=== PATIENT | female | born 1960 | race Caucasian/White ===

== ENCOUNTER 2024-01-12 21:06 | Emergency (ER) | payer OTHER, SELFPAY ==
[2024-01-12 21:14] VITALS: BP 173/104; PULSE 93; TEMP 36.6; O2SAT 96; BMI 40.7
--- NOTE | 2024-01-12 21:20 | XR_ITS ---
[address] [address] Patient Name: BHAVYA BALDWIN MRN: [id number] date: 1960 Sex: F Assigned Patient Location: ER Current Patient Location: ED.MAIN Accession/Order Number: [id number] Exam Date: 01/12/2024 21:40 Report Date: 01/12/2024 22:30 At the request of: SHAYLEE WILLIAM Procedure: XR ribs RT min 3V w CXR1V EXAM: XR ribs RT min 3V w CXR1V HISTORY: fall COMPARISON: None. FINDINGS/IMPRESSION: 1. No acute fracture or dislocation 2. Lungs are clear. No pneumothorax. No pleural effusion. 3. Upper abdominal bowel gas pattern is nonspecific. 4. Diffuse idiopathic skeletal hyperostosis of the thoracic spine. 5. Chronic of the right proximal humerus. Electronically authenticated by: PARVEZ HENSLEY Date: 01/12/2024 22:30
--- NOTE | 2024-01-12 21:20 | ED.FALL1 ---
HPI HPI - Fall General Chief Complaint: Fall Stated Complaint: RIB PAIN, POST FALL Time Seen by Provider: 01/12/24 21:10 Source: patient Mode of arrival: Wheelchair Limitations: no limitations History of Present Illness HPI Narrative: 63-year-old female presents for right rib pain. About 1:00 this afternoon she was going down some steps with her walker and she fell forward and hit her right lower rib region on the the walker. No other injury was sustained, she has no abdominal pain. It hurts in certain positions or to push on it. She has no history of the rib fracture. Related Data Home Medications ?Medication ?Instructions ?Recorded ?Confirmed amitriptyline 25 mg tablet 25 mg PO DAILY 01/12/24 01/12/24 ascorbic acid (vitamin C) 1,000 mg 1,000 mg PO DAILY 01/12/24 01/12/24 tablet,extended release (C Complex) aspirin 81 mg chewable tablet 81 mg PO DAILY 01/12/24 01/12/24 (Children's Aspirin) atogepant 60 mg tablet (Qulipta) 60 mg PO DAILY 01/12/24 01/12/24 clopidogrel 75 mg tablet 75 mg PO DAILY 01/12/24 01/12/24 cyclobenzaprine 10 mg tablet 10 mg PO Q12H 01/12/24 01/12/24 divalproex 500 mg tablet,extended 1,000 mg PO DAILY 01/12/24 01/12/24 release 24 hr flaxseed 1,000 mg capsule 1,000 mg PO BID 01/12/24 01/12/24 levothyroxine 75 mcg tablet 75 mcg PO DAILY 01/12/24 01/12/24 lisinopril 10 mg tablet 10 mg PO DAILY 01/12/24 01/12/24 magnesium 250 mg tablet 500 mg PO DAILY 01/12/24 01/12/24 metformin 1,000 mg tablet 1,000 mg PO BID 01/12/24 01/12/24 niacin 1,000 mg tablet,extended 1,000 mg PO BID 01/12/24 01/12/24 release pregabalin 100 mg capsule 100 mg PO Q12H 01/12/24 01/12/24 semaglutide 1 mg/dose (4 mg/3 mL) 2 mg subcut .weekly 01/12/24 01/12/24 subcutaneous pen injector (Ozempic) Previous Rx's ?Medication ?Instructions ?Recorded acetaminophen 300 mg-codeine 30 mg 1 tab PO Q6H PRN pain 5 days #20 01/12/24 tablet tabs Allergies Allergy/AdvReac Type Severity Reaction Status Date / Time No Known Drug Allergies Allergy Verified 01/12/24 21:19 Opioid HPI Opioid Management Most Recent Pain and Opioid Data: Last Pain Scale 10 01/12/24 22:12 Last ED Pain Assessment 01/12/24 22:12 Review of Systems ROS Narrative A ten point review of systems is negative except as noted above. Exam Narrative Exam Narrative: Nurses note and vital signs reviewed and patient is not hypoxic. General: The patient appears well and in no apparent distress. Patient is resting comfortably on cart. Skin: Warm, dry, no pallor noted. There is no rash noted. Head: Normocephalic, atraumatic Eye: Normal conjunctiva, no drainage Ears, Nose, Mouth, and Throat: oral mucosa is moist. Nares patent. Cardiovascular: Regular Rate and Rhythm Respiratory: Patient is in no distress, no accessory muscle use, lungs are clear to auscultation, no wheezing, rales or rhonchi. Tenderness to the right lower anterior rib region without crepitus bruise rash or abrasion Back: non-tender GI: Soft and nontender including right upper quad Musculoskeletal: The patient has no evidence of calf tenderness, no pitting edema, symmetrical pulses noted bilaterally Neurological: A&O, normal speech Psychiatric: Cooperative Constitutional Vital Signs, click to edit/add: Last Vital Signs Temp 98 F 01/12/24 21:14 Pulse 90 01/12/24 22:12 Resp 18 01/12/24 22:12 BP 130/80 01/12/24 22:12 Pulse Ox 97 01/12/24 22:12 O2 Del Method Room Air 01/12/24 22:12 Course Vital Signs Vital signs: Vital Signs Temperature 98 F 01/12/24 21:14 Pulse Rate 93 H 01/12/24 21:14 Respiratory Rate 18 01/12/24 21:14 Blood Pressure 173/104 H 01/12/24 21:14 Pulse Oximetry 96 01/12/24 21:14 Oxygen Delivery Method Room Air 01/12/24 21:14 Temperature 98 F 01/12/24 21:14 Pulse Rate 90 01/12/24 22:12 Respiratory Rate 18 01/12/24 22:12 Blood Pressure 130/80 01/12/24 22:12 Pulse Oximetry 97 01/12/24 22:12 Oxygen Delivery Method Room Air 01/12/24 22:12 MDM - Fall MDM Narrative Medical decision making narrative: Rib x-rays are negative per radiologist. She will be treated symptomatically and was given an incentive spirometer. Treatment diagnosis and follow-up were discussed with the patient and her . Differential Diagnosis Differential diagnosis: Likely other (Rib fracture, rib contusion, pneumothorax) Discharge Plan Discharge Stand Alone Forms: Portal Instructions Chief Complaint: Fall Clinical Impression: Contusion of rib on right side Patient Disposition: Home, Self-Care Time of Disposition Decision: 22:37 Condition: Good Mode of Transportation: Private Vehicle Prescriptions / Home Meds: New acetaminophen-codeine 300-30 mg tablet 1 tab PO Q6H PRN (Reason: pain) 5 Days Qty: 20 0RF No Action metformin 1,000 mg tablet 1,000 mg PO BID clopidogrel 75 mg tablet 75 mg PO DAILY pregabalin 100 mg capsule 100 mg PO Q12H Rx Instructions: 150 mg at PM levothyroxine 75 mcg tablet 75 mcg PO DAILY Rx Instructions: at 06:30 lisinopril 10 mg tablet 10 mg PO DAILY cyclobenzaprine 10 mg tablet 10 mg PO Q12H Rx Instructions: 1/2-1 tablet Qulipta 60 mg tablet 60 mg PO DAILY amitriptyline 25 mg tablet 25 mg PO DAILY Rx Instructions: at HS Ozempic 1 mg/dose (4 mg/3 mL) pen injector 2 mg SUBCUT .weekly divalproex 500 mg tablet extended release 24 hr 1,000 mg PO DAILY niacin 1,000 mg tablet extended release 1,000 mg PO BID magnesium 250 mg tablet 500 mg PO DAILY flaxseed 1,000 mg capsule 1,000 mg PO BID C Complex 1,000 mg tablet extended release 1,000 mg PO DAILY aspirin [Children's Aspirin] 81 mg tablet,chewable 81 mg PO DAILY Print Language: Egyptian Instructions: Rib Contusion (ED) Referrals: Physician,Non-Staff, MD [Primary Care Provider] - 1 week
[2024-01-12] MEDS: ACETAMINOPHEN 300 MG/ 30 MG CODEINE TABLET 1 TAB PO ×2 (21:25→23:03)
[2024-01-12 22:12] VITALS: BP 130/80; PULSE 90; O2SAT 97
[2024-01-12 23:11] VITALS: BP 138/82; PULSE 76; O2SAT 97
== END 2024-01-12 23:14 | disposition home or self-care (01) ==
PROVIDERS: Emergency Provider Emergency Medicine
DX: S20.211A Contusion of right front wall of thorax, initial encounter (principal); W10.9XXA Fall (on) (from) unspecified stairs and steps, initial encounter; Z79.899 Other long term (current) drug therapy; Z79.82 Long term (current) use of aspirin; Z79.890 Hormone replacement therapy; Z79.84 Long term (current) use of oral hypoglycemic drugs
CPT/HCPCS: 71101; 94667; 99283

== ENCOUNTER 2024-05-20 14:02 | Emergency (ER) | payer OTHER, SELFPAY ==
[2024-05-20 14:09] VITALS: BP 178/96; PULSE 91; TEMP 36.6; O2SAT 98; BMI 41.2
--- NOTE | 2024-05-20 14:17 | CT_ITS ---
The [address] [address] Patient Name: BHAVYA BALDWIN MRN: [id number] date: 1960 Sex: F Assigned Patient Location: ER Current Patient Location: ER Accession/Order Number: [id number] Exam Date: 05/20/2024 14:53 Report Date: 05/20/2024 15:18 At the request of: JADA HENDRICKS Procedure: CT abdomen pelvis wo con CT ABDOMEN/PELVIS WITHOUT IV CONTRAST. INDICATION: left flank pain COMPARISON: There are no other studies available for comparison. TECHNIQUE: Contiguous axial images were obtained from the lung bases to the pelvic floor without intravenous or oral contrast. Coronal and sagittal reformations are provided. FINDINGS: LOWER LUNGS: Clear. LIVER/BILIARY TREE: No discrete lesion. No intrahepatic ductal dilatation. GALLBLADDER: Status post cholecystectomy.. CBD: Normal CBD. SPLEEN: Normal in size. PANCREAS: No appreciable peripancreatic fluid. No pancreatic ductal dilatation. No discrete lesion. ADRENALS: Normal. KIDNEYS: No hydronephrosis. There are several nonobstructing left renal stones measuring up to 2 mm. STOMACH AND BOWEL: Stomach is unremarkable. No dilated bowel loops. No bowel wall thickening. APPENDIX: Normal appendix. PERITONEAL CAVITY: No fluid. No fat stranding. ABDOMINAL WALL: No subcutaneous stranding. No subcutaneous fluid collection. LYMPH NODES: No mesenteric or retroperitoneal lymphadenopathy by CT criteria. ABDOMINAL AORTA: No aneurysm. PELVIS: No acute abnormality. MUSCULOSKELETAL: No acute osseous abnormality. CT/CT abdomen pelvis wo con IMPRESSION: No acute abnormality in the abdomen or pelvis. No obstructive uropathy. Left nephrolithiasis. Electronically authenticated by: CHELSEA ROBLEDO Date: 05/20/2024 15:18
--- NOTE | 2024-05-20 14:18 | ECG_ITS ---
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
[2024-05-20 14:37] LABS: Basophils Absolute Auto 0.1 10^3/uL (0.0-0.1); Basophils Percent Auto 0.9 % (0.2-2.0); Eosinophils Absolute Auto 0.3 10^3/uL (0.0-0.7); Eosinophils Percent Auto 3.8 % (0.9-7.0); Hemoglobin 14.1 g/dL (12.0-16.0); Immature Granulocytes Abs Auto 0.02 10^3/uL (0.00-0.03); Immature Granulocytes Pct Auto 0.3 % (0.0-0.5); Lymphocytes Percent Auto 28.3 % (20.5-60.0); Mean Corpuscular Hemoglobin 28.5 pg (26.7-34.0); Mean Corpuscular Volume 88.9 fL (81.0-99.0); Mean Platelet Volume 11.4 fL (9.5-13.5); Monocytes Absolute Auto 0.6 10^3/uL (0.3-0.8); Monocytes Percent Auto 8.3 % (1.7-12.0); Neutrophils Percent Auto 58.4 % (43.0-75.0); Platelet Count 281 10^3/uL (150-450); Red Blood Count 4.95 10^6/uL (4.20-5.40); Red Cell Distribution Width 13.8 % (11.0-15.0); White Blood Count 6.9 10^3/uL (4.0-11.0)
[2024-05-20 14:37] LABS: Bilirubin Urine NEGATIVE (NEGATIVE); Blood Urine NEGATIVE (NEGATIVE); Clarity Urine CLEAR (CLEAR); Color Urine LT. YELLOW (YELLOW); Glucose Urine UA NEGATIVE (NEGATIVE); Ketones Urine NEGATIVE (NEGATIVE); Leukocyte Esterase Urine TRACE (NEGATIVE); Nitrite Urine NEGATIVE (NEGATIVE); Protein Urine NEGATIVE (NEG/TRACE); Urobilinogen Urine 0.2 EU/dL (0.2-1.0)
[2024-05-20] MEDS: KETOROLAC TROMETHAMINE 30 MG/ML VIAL 15 MG IVP (14:37)
[2024-05-20] MEDS: 0.9 % SODIUM CHLORIDE 1,000 ML 1000 ML IV (14:37)
[2024-05-20 14:45] LABS: Urine Microscopic Indicated YES
--- NOTE | 2024-05-20 14:58 | ED_ITS ---
HPI - Abdominal Pain General Chief Complaint: Abdominal Pain Stated Complaint: URINARY PAIN Time Seen by Provider: 05/20/24 14:09 Source: patient and family Mode of arrival: walk-in Limitations: no limitations History of Present Illness HPI narrative: The patient comes to the ER with a right flank pain radiated to the front of the abdomen for the last 24 hours, she mentioned that the pain has been going on at least for the last 2 days but over the last 24 hours it got worse, no nausea no vomiting no change in bowel movement Patient also noted no fever no chills and there is no blood in urine or any frequency or burning with urination Patient mentioned that few years ago she had kidney stone and she had to go for stent placement Related Data Home Medications ?Medication ?Instructions ?Recorded ?Confirmed amitriptyline 25 mg tablet 25 mg PO DAILY 01/12/24 05/20/24 aspirin 81 mg chewable tablet 81 mg PO DAILY 01/12/24 05/20/24 (Children's Aspirin) atogepant 60 mg tablet (Qulipta) 60 mg PO DAILY 01/12/24 05/20/24 clopidogrel 75 mg tablet 75 mg PO DAILY 01/12/24 05/20/24 levothyroxine 75 mcg tablet 75 mcg PO DAILY 01/12/24 05/20/24 lisinopril 10 mg tablet 10 mg PO DAILY 01/12/24 05/20/24 magnesium 250 mg tablet 500 mg PO DAILY 01/12/24 05/20/24 niacin 1,000 mg tablet,extended 1,000 mg PO BID 01/12/24 05/20/24 release pregabalin 100 mg capsule 100 mg PO Q12H 01/12/24 05/20/24 semaglutide 1 mg/dose (4 mg/3 mL) 2 mg subcut .weekly 01/12/24 05/20/24 subcutaneous pen injector (Ozempic) lasmiditan 100 mg tablet (Reyvow) 100 mg PO QDAY PRN migraine 05/20/24 05/20/24 headache tizanidine 4 mg tablet 4 mg PO Q8H PRN muscle spasticity 05/20/24 05/20/24 Previous Rx's ?Medication ?Instructions ?Recorded oxycodone-acetaminophen 5 mg-325 1 tab PO Q8H PRN pain #9 tabs 05/20/24 mg tablet (Percocet) Allergies Allergy/AdvReac Type Severity Reaction Status Date / Time [id number] Reductase AdvReac Muscle Pain Verified 05/20/24 14:09 Inhibitor Review of Systems ROS Status of ROS 10 or more systems reviewed and unremark able except as noted in history and below Exam Narrative Exam Narrative: Nurses notes and vital signs reviewed and patient is not hypoxic. General: Well-appearing and in no apparent distress. Skin: Warm, dry, no pallor noted. No rash. Head: Normocephalic, atraumatic. Neck: Supple, non-tender. Eye: Pupils are equal, round and EOMI. No scleral icterus. Ears, Nose, Mouth, and Throat: TM are clear, no nasal mucosal hypertrophy. Oral mucosa is moist, no posterior oropharynx erythema, uvula is mid-line Cardiovascular: Regular Rate and Rhythm without murmur, gallop or rub. Respiratory: No accessory muscle use or respiratory distress. Lungs are clear to auscultation, no wheezing, rales or rhonchi Chest Wall: no tenderness Back: No midline thoracic or lumbar vertebral tenderness. Right costophrenic angle tenderness Musculoskeletal: normal ROM, no calf or popliteal tenderness, no lower extremity edema/swelling GI: Abdomen is soft, non-distended. Normal bowel sounds. No masses appreciated. No tenderness to palpation. No rebound, guarding, or rigidity noted. Neurological: A&O x4. No cranial nerve dysfunction observed. No truncal ataxia. Moves all extremities. Sensation intact. Psychiatric: Cooperative and interactive. Normal mood and affect. Constitutional Vital Signs, click to edit/add: Last Vital Signs Temp 97.8 F 05/20/24 14:09 Pulse 91 H 05/20/24 15:10 Resp 20 05/20/24 15:10 BP 146/79 H 05/20/24 15:09 Pulse Ox 98 05/20/24 14:09 O2 Del Method Room Air 05/20/24 14:09 Course Vital Signs Vital signs: Vital Signs Temperature 97.8 F 05/20/24 14:09 Pulse Rate 91 H 05/20/24 14:09 Respiratory Rate 16 05/20/24 14:09 Blood Pressure 178/96 H 05/20/24 14:09 Pulse Oximetry 98 05/20/24 14:09 Oxygen Delivery Method Room Air 05/20/24 14:09 Temperature 97.8 F 05/20/24 14:09 Pulse Rate 91 H 05/20/24 15:10 Respiratory Rate 20 05/20/24 15:10 Blood Pressure 146/79 H 05/20/24 15:09 Pulse Oximetry 98 05/20/24 14:09 Oxygen Delivery Method Room Air 05/20/24 14:09 MDM - Abdominal Pain Lab Data Labs: Lab Results 05/20/24 05/20/24 Range/Units 14:20 14:25 WBC 6.9 (4.0-11.0) 10^3/uL RBC 4.95 (4.20-5.40) 10^6/uL Hgb 14.1 (12.0-16.0) g/dL Hct 44.0 (36.0-48.0) % MCV 88.9 (81.0-99.0) fL MCH 28.5 (26.7-34.0) pg MCHC 32.0 (29.9-35.2) g/dL RDW 13.8 (11.0-15.0) % Plt Count 281 (150-450) 10^3/uL MPV 11.4 (9.5-13.5) fL Neut % (Auto) 58.4 (43.0-75.0) % Lymph % (Auto) 28.3 (20.5-60.0) % Freestone % (Auto) 8.3 (1.7-12.0) % Eos % (Auto) 3.8 (0.9-7.0) % Baso % (Auto) 0.9 (0.2-2.0) % Neut # (Auto) 4.0 (1.4-6.5) 10^3/uL Lymph # (Auto) 2.0 (1.2-3.8) 10^3/uL Fre[place] # (Auto) 0.6 (0.3-0.8) 10^3/uL Eos # (Auto) 0.3 (0.0-0.7) 10^3/uL Baso # (Auto) 0.1 (0.0-0.1) 10^3/uL Abs Immat Gran (auto) 0.02 (0.00-0.03) 10^3/uL Imm/Tot Granulo (auto) 0.3 (0.0-0.5) % Sodium 140 (136-145) mmol/L Potassium 4.8 (3.5-5.1) mmol/L Chloride 101 (98-107) mmol/L Carbon Dioxide 31.3 (21.0-32.0) mmol/L Anion Gap 12.5 BUN 9.0 (7.0-18.0) mg/dL Creatinine 0.63 (0.55-1.02) mg/dL Est GFR ( Amer) >60 (>=60) Est GFR (Non-Af Amer) >60 (>=60) BUN/Creatinine Ratio 14.3 Glucose 107 H (74-106) mg/dL Calcium 9.3 (8.5-10.1) mg/dL Total Bilirubin 0.4 (0.2-1.0) mg/dL AST 29 (15-37) U/L ALT 34 (14-59) U/L Alkaline Phosphatase 101 (46-116) U/L Troponin I High Sens 4.3 (4.0-51.3) pg/mL Total Protein 6.9 (6.4-8.2) g/dL Albumin 4.1 (3.4-5.0) g/dL Globulin 2.8 g/dL Albumin/Globulin Ratio 1.5 Urine Color Lt. yellow (YELLOW) Urine Clarity Clear (CLEAR) Urine pH 6.0 (5.0-9.0) Ur Specific [place] 1.010 (1.005-1.025) Urine Protein Negative (NEG/TRACE) mg/dL Urine Glucose (UA) Negative (NEGATIVE) mg/dL Urine Ketones Negative (NEGATIVE) mg/dL Urine Occult Blood Negative (NEGATIVE) Urine Nitrite Negative (NEGATIVE) Urine Bilirubin Negative (NEGATIVE) Urine Urobilinogen 0.2 (0.2-1.0) EU/dL Ur Leukocyte Esterase Trace A (NEGATIVE) Urine RBC 0-2 (0-2) #/HPF Urine WBC 2-5 A (NONE SEEN) #/HPF Ur Squamous Epith Cells Few A (NONE/RARE) #/LPF Urine Crystals None seen (None Seen) #/HPF Urine Bacteria Trace A (NONE SEEN) #/HPF Urine Casts None seen (NONE SEEN) #/LPF Urine Mucus None seen (NONE SEEN) Ur Culture Indicated? No Discharge Plan Discharge Stand Alone Forms: Work/School Release, Portal Instructions Chief Complaint: Abdominal Pain Clinical Impression: Back pain Qualifiers: Back pain location: low back pain Chronicity: acute Back pain laterality: right Sciatica presence: without sciatica Qualified Code(s): M54.50 - Low back pain, unspecified Patient Disposition: Home, Self-Care Time of Disposition Decision: 15:42 Condition: Good Mode of Transportation: Private Vehicle Prescriptions / Home Meds: New oxycodone-acetaminophen [Percocet] 5-325 mg tablet 1 tab PO Q8H PRN (Reason: pain) Qty: 9 0RF No Action clopidogrel 75 mg tablet 75 mg PO DAILY pregabalin 100 mg capsule 100 mg PO Q12H Rx Instructions: 150 mg at PM levothyroxine 75 mcg tablet 75 mcg PO DAILY Rx Instructions: at 06:30 lisinopril 10 mg tablet 10 mg PO DAILY Qulipta 60 mg tablet 60 mg PO DAILY amitriptyline 25 mg tablet 25 mg PO DAILY Rx Instructions: at HS Ozempic 1 mg/dose (4 mg/3 mL) pen injector 2 mg SUBCUT .weekly niacin 1,000 mg tablet extended release 1,000 mg PO BID magnesium 250 mg tablet 500 mg PO DAILY aspirin [Children's Aspirin] 81 mg tablet,chewable 81 mg PO DAILY Reyvow 100 mg tablet 100 mg PO QDAY PRN (Reason: migraine headache) Rx Instructions: no more than 8 in 1 month tizanidine 4 mg tablet 4 mg PO Q8H PRN (Reason: muscle spasticity) Print Language: Belarusian Instructions: Back Pain (ED) Referrals: Physician,Non-Staff, MD [Primary Care Provider] - 1 week Discharge Date/Time: 05/20/24 16:07
[2024-05-20 15:01] LABS: Crystals Seen? None Seen #/HPF (None Seen); Squamous Epithelial Cell Urine FEW #/LPF (NONE/RARE)
[2024-05-20 15:02] LABS: Cast Seen? NONE SEEN #/LPF (NONE SEEN); RBC Urine 0-2 #/HPF (0-2)
[2024-05-20 15:03] LABS: Bacteria Urine TRACE #/HPF (NONE SEEN); Mucus Urine NONE SEEN (NONE SEEN)
[2024-05-20 15:04] LABS: Alanine Aminotransferase 34 U/L (14-59); Albumin Globulin Ratio 1.5; Albumin Level 4.1 g/dL (3.4-5.0); Alkaline Phosphatase 101 U/L (46-116); Anion Gap 12.5; Aspartate Amino Transferase 29 U/L (15-37); BUN Creatinine Ratio 14.3; Bilirubin Total 0.4 mg/dL (0.2-1.0); Calcium 9.3 mg/dL (8.5-10.1); Carbon Dioxide 31.3 mmol/L (21.0-32.0); Chloride 101 mmol/L (98-107); Estimated GFR (African America >60 (>=60); Estimated GFR (Non-African Ame >60 (>=60); Globulin 2.8 g/dL; Glucose 107 mg/dL (74-106); Potassium 4.8 mmol/L (3.5-5.1); Sodium 140 mmol/L (136-145); Total Protein 6.9 g/dL (6.4-8.2)
[2024-05-20 15:04] LABS: Urine Culture Indicated NO
[2024-05-20 15:08] LABS: Troponin I High Sensitivity 4.3 pg/mL (4.0-51.3)
[2024-05-20 15:09] VITALS: BP 146/79; PULSE 88
[2024-05-20 15:10] VITALS: PULSE 91
[2024-05-20] MEDS: MORPHINE SULFATE 4 MG/ML VIAL IV (15:29)
== END 2024-05-20 16:07 | disposition home or self-care (01) ==
PROVIDERS: Emergency Provider Emergency Medicine
DX: R10.9 Unspecified abdominal pain (principal); Z87.442 Personal history of urinary calculi; Z90.49 Acquired absence of other specified parts of digestive tract
CPT/HCPCS: 36415; 74176; 80053; 81001; 84484; 85025; 93005; 96374; 96375; 99285; J1885; J2270

== ENCOUNTER 2024-11-14 11:09 | Emergency (ER) | payer OTHER, SELFPAY ==
[2024-11-14] VITALS (12 sets, daily range): BP systolic 142–165; BP diastolic 86–100; PULSE 69–90; TEMP 36.7; O2SAT 94–99; BMI 40.3
--- OUTSIDE RECORDS SUMMARY | 2024-11-14 11:23 | XMS_ITS | CCD ---
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 Name Role Phone Mast, Isidro Unavailable Pravin Beebe Unavailable Mast, Isidro Unavailable Mast, DO Isidro Primary Care Provider MD Ernie Oliver Jr Emergency Provider Mast, DO Isidro Primary Care Provider [phone] Mast, DO Isidro Attending Provider Mast, DO Isidro Primary Care Provider [phone] Mast, DO Isidro Attending Provider YURIDIA Montoya-C Flor Attending Provider Flor Montoya Unavailable Mast, DO Isidro Primary Care Provider Mast, DO Isidro Attending Provider YURIDIA Montoya-C Flor Attending Provider DO Guille Johnson Emergency Provider MD Pravin Beebe Attending Provider [phone] MD Leonardo Braden Emergency Provider Mast DO, Isidro E Primary Care Provider [phone] Mast, DO Isidro Primary Care Provider MD Ernie Oliver Jr Emergency Provider MD Anjali Rosario Admit Provider MD Anjali Rosario Attending Provider [phone] DO Jean Mays Other Provider DO Jameson Posada Attending Provider DO Shmuel Faith A Emergency Provider MD Munir Ennis Admit Provider Floresita Sommers Other Provider Unavailable DO Tree Figueroale Other Provider MD Michael Ashraf Other Provider DO Virgilio Trevizo Other Provider [facility] Shayna Other Provider HANY Starks Other Provider KHARI Finn Other Provider HANY Klein-BOARD WINDER-C Tanna Lutz Other Provider MD Ibis Andersen Attending Provider DO Shmuel Faith A Emergency Provider MD Munir Ennis Admit Provider Floresita Sommers Other Provider Unavailable DO Steven Figueroa Other Provider MD Michael Ashraf Other Provider [phone] DO Virgilio Trevizo Other Provider Manolo [facility] Shayna Other Provider HANY Starks Other Provider KHARI Finn Other Provider HANY Klein-JUDAH-C Tanna Lutz Other Provider MD Ibis Andersen Attending Provider Lisa DO Isidro Primary Care Provider MD Pravin Beebe Attending Provider [phone] KHARI Montoya Attending Provider DO Vern Isidro Emergency Provider MD Karen Mar Admit Provider MD Karen Mar Attending Provider MAST, ISIDRO E Primary Care Unavailable PO RIVERO Attending Unavailable Mast, DO Isidro Primary Care Provider [phone] KHARI Montoya Attending Provider DO Dillon Trevizo Other Provider DO Erickson Odonnell Emergency Provider MD Jairo Hughes Admit Provider MD Jairo Hughes Attending Provider Mast, DO Isidro Primary Care Provider DO Jean Mays M Other Provider Mast, DO Isidro Attending Provider Mast, DO Iisdro Primary Care Provider [phone] MD Grazyna Coronado Attending Provider MD Pravin Beebe Attending Provider [phone] Mast, DO Isidro Primary Care Provider [phone] Mast, DO Isidro Primary Care Provider MD Pravin Beebe Attending Provider KHARI Montoya Attending Provider MD Lynnette Tavera Emergency Provider Mast, DO Isidro Primary Care Provider [phone] MD Pravin Beebe Attending Provider Mast, DO Isidro Primary Care Provider MD Pravin Beebe Attending Provider MD Leonardo Braden Emergency Provider [phone] Mast, DO Isidro Primary Care Provider Mast, DO Isidro Primary Care Provider Mast, DO Isidro Attending Provider DO Guille Johnson Emergency Provider Mast, DO Isidro Primary Care Provider DO Adam Pierce Emergency Provider HANY Olson Emergency Provider [phone] FriDO Andres forde Admit Provider [phone] DexterngsDO Campos Attending Provider MD Iglesia Mccray Attending Provider Lisa GUERRERO, Isidro E Primary Care Provider Janelle Barreto Attending Unavailable Mast DO, Isidro Primary Care Provider Guille Johnson DO Emergency Provider [phone] Adam Pierce DO Emergency Provider Ansley Acevedo APRN, Meka Robins Emergency Provider Andres Holden DO Admit Provider Iglesia Mccray MD Attending Provider [phone] [facility] Attending Provider [facility] Referring Provider Mast DO, Isidro Primary Care Provider Mast DO, Isidro Attending Provider Pravin Beebe MD Attending Provider Vadim Little APRN Emergency Provider Deondre Jarrett MD Attending Provider Steven Figueroa DO Unavailable Mast, Isidro Primary Care Unavailable Abiel, Praivn S Admitting Unavailable Pablo Beebeif S Attending Unavailable Mast, Isidro Primary Care Unavailable Abiel, Pravin S Admitting Unavailable AbielPablo aguirreif S Attending Unavailable Mast, Isidro Primary Care Unavailable Vadim Little Attending Unavailable Vadim Little Admwolf Unavailable Mast, Isidro Primary Care Unavailable AbielPabloif S Attending Unavailable Abiel, Pravin S Admitting Unavailable Abiel, Pravin S Admitting Unavailable Abiel, Pravin S Attending Unavailable Mast, Isidro Primary Care Unavailable Mast, Isidro Primary Care Unavailable Iglesia Mccray Attending Unavailable Andres Holden Admitting Unavailable Abiel, Pravin S Admitting Unavailable Abiel, Pravin S Attending Unavailable Mast, Isidro Primary Care Unavailable Sampson, Leonardo Emery Attending Unavailable Mast, Isidro Primary Care Unavailable Leonardo Braden Admitting Unavailable Lynnette Tavera Attending Unavailable Lynnette Tavera R Admitting Unavailable Mast, Isidro Primary Care Unavailable Guille Johnson M Attending Unavailable Mast, Isidro Primary Care Unavailable Alex, Guille M Admitting Unavailable PierceAdam gupta Attending Unavailable Adam Pierce M Admitting Unavailable Mast, Isidro Primary Care Unavailable Mast, Isidro Primary Care Unavailable Orzech, Keke Attending Unavailable Orzech, Keke Referring Unavailable Orzech, Keke Admitting Unavailable Mast, Isidro Attending Unavailable Mast, Isidro Admitting Unavailable Mast, Isidro Primary Care Unavailable Mast, Isidro Primary Care Unavailable Jan, Flor Attending Unavailable Jan, Flor Admitting Unavailable Mast, Isidro Primary Care Unavailable Deondre Jarrett Attending Unavailable Haladaervin Deondre Admitting Unavailable Mast, Isidro Attending Unavailable Mast, Isidro Admitting Unavailable Mast, Isidro Primary Care Unavailable CAROLINA, STEVEN Attending Unavailable CAROLINA, STEVEN Attending Unavailable GILLMOR, CONCHIS Attending Unavailable CAROLINA, STEVEN Attending Unavailable GILLMOR, CONCHIS Attending Unavailable CAPRI SRIVASTAVA Attending Unavailable CAROLINA, STEVEN Attending Unavailable GILLMOR, CONCHIS Attending Unavailable Mast DO, Isidro Primary Care Provider [phone] Guille Johnson DO Emergency Provider [phone] Allergies Allergy Classification Reported Allergen(s) Allergy Type Date of Onset Reaction(s) Facility (1 source) HMG-CoA reductase inhibitor Drug Allergy 3 Intolerance [facility] (17 sources) HMG-CoA reductase inhibitor Drug Intolerance 4 Unknown [facility] (17 sources) Tall Ragweed Propensity to adverse reactions 4 [facility] (1 source) Adhesive Tape; Translations: [Tape] Propensity to adverse reactions (disorder) [facility] Repository (1 source) Mgrocji-HDB-TmY Reductase Inhibitor Drug allergy (disorder) [address] [place] [address] Repository Medications Current Medications Medication Drug Class(es) Dates Sig (Normalized) Sig (Original) 3 ML semaglutide 1.34 MG/ML Pen Injector [Ozempic] (6 sources) Start: 07-11-2023 inject 1 mg by subcutaneous injection every week Ozempic (1 MG/DOSE) 4 MG/3ML 1mg Subcutaneous once a week Jun, Active inject 1 mg by subcu taneous injection every week Ozempic (1 MG/DOSE) 4 MG/3ML INJECT 1MG SUBCUTANEOUS ONCE A WEEK for 28 Not-Taking inject 1 mg by subcu taneous injection every week Ozempic (1 MG/DOSE) 4 MG/3ML INJECT 1MG SUBCUTANEOUS ONCE A WEEK for 28 Active inject 2 mg by subcu taneous injection every week Ozempic (1 MG/DOSE) 4 MG/3ML INJECT 2 MG SUBCUTANEOUSLY WEEKLY DIRECTED Active 3 ML semaglutide 2.68 MG/ML Pen Injector [Ozempic] (20 sources) Start: 07-09-2022 inject 2 mg by subcutaneous injection every week Ozempic (2 MG/DOSE) 8 MG/3ML 2 mg Subcutaneous weekly Jun, Active inject 2 mg by subcu taneous injection every week Ozempic (2 MG/DOSE) 8 MG/3ML INJECT 2MG SUBCUTANEOUSLY ONCE WEEKLY 28 Active inject 2 mg by subcu taneous injection every week Ozempic (2 MG/DOSE) 8 MG/3ML INJECT 2MG SUBCUTANEOUSLY ONCE WEEKLY 28 for 28 Active inject 2 mg by subcu taneous injection every week Ozempic (2 MG/DOSE) 8 MG/3ML INJECT 2MG SUBCUTANEOUSLY ONCE WEEKLY for 28 Active Ajovy (1 source) Ajovy Active ALPRAZolam 0.5 mg oral tablet (2 sources) Benzodiazepine Start: 5 take 0.5-1 tablets by mouth three times daily as needed for anxiety Alprazolam (Xanax) 0.5 mg tablet Active 0 PO Three times daily as needed for anxiety November 09, 2024 12:00am 1/2 to 1 tab orally three times daily PRN; aspirin 81 mg oral tablet (20 sources) Platelet Aggregation Inhibitor, Nonsteroidal Anti-inflammatory Drug Start: 3 take 1 capsule by mouth once daily Aspirin 81 mg capsule Active 81 MG PO Daily January 26, 2023 11:00pm Start: 03-09-2019 End: 12-16-2021 take 1 tablet by mouth once daily Aspirin (Aspir-81) 81 mg Tablet,Delayed Release (Dr/Ec) Discontinued 81 MG PO Daily April 13, 2020 11:00pm December 15, 2021 11:07pm take 1 tablet by duncan th once daily Aspirin 81 81 MG 1 tablet Orally Once a day Active Comment on above: Take 81 mg by mouth once daily. Atogepant (20 sources) Start: 11-13-2023 take 1 tablet by mouth once daily Atogepant (Qulipta) 60 mg tablet Active 60 MG PO Daily November 13, 2023 1:00am Start: 11-13-2023 take 1 tablet by duncan th once daily Atogepant (Qulipta) 60 mg tablet Active 60 MG PO Daily November 13, 2023 12:00am Start: 12-03-2022 End: 08-20-2023 take 1 tablet by mouth once daily Atogepant (Qulipta) 60 mg tablet Discontinued 60 MG PO Daily December 03, 2022 12:00am August 20, 2023 11:48am Start: 12-03-2022 End: 08-20-2023 take 1 tablet by mouth once daily Atogepant (Qulipta) 60 mg tablet Discontinued 60 MG PO Daily December 02, 2022 11:00pm August 20, 2023 10:48am Start: 12-03-2022 take 1 tablet by duncan th once daily Atogepant (Qulipta) 60 mg tablet Active 60 MG PO Daily December 02, 2022 11:00pm Start: 12-03-2022 take 1 tablet by duncan th once daily Atogepant (Qulipta) 60 mg tablet Active 60 MG PO Daily December 03, 2022 12:00am Atogepant (Qulipta) 60 MG tablet (8 sources) Start: 06-19-2024 End: 09-17-2024 take 1 tablet by mouth once daily Atogepant (Qulipta) 60 MG tablet Indications: Lumbar radiculopathy , Radiculopathy, lumbar region Take 60 mg by mouth Daily 1 TABLET 30 tablet 2 06/19/2024 09/17/2024 Active Start: 04-22-2024 End: 06-19-2024 take 1 tablet by mouth once daily Atogepant (Qulipta) 60 MG tablet Indications: Radiculopathy, lumbar region , Lumbar radiculopathy Take 60 mg by mouth Daily 1 TABLET 30 tablet 2 04/22/2024 06/19/2024 Discontinued (Reorder) Start: 04-22-2024 End: 07-21-2024 take 1 tablet by mouth once daily Atogepant (Qulipta) 60 MG tablet Indications: Radiculopathy, lumbar region , Lumbar radiculopathy Take 60 mg by mouth Daily 1 TABLET 30 tablet 2 04/22/2024 07/21/2024 Active atogepant 60 MG Oral Tablet [Qulipta] (9 sources) take 1 tablet by mouth every twenty-four hours Qulipta 60 MG 1 tablet Orally Once a day Active onabotulinumtoxina 200 unt injection (9 sources) Acetylcholine Release Inhibitor Start : 10-28 End: 10-28 onabotulinumtoxinA (Botox) injection 200 Units Start: 2024 End: 2024 inject 200 [IU] by intramuscular injection once 200 Units, Intramuscular, Once, On Nancy 10/28/24 at 1015, For 1 dose, Charging context for this clinic-administered medication: Medically Necessary/Insurance Start: 07-22-2024 End: 07-22-2024 onabotulinumtoxinA (Botox) i njection 200 Units Start: 07-22-2024 End: 07-22-2024 inject 200 [IU] by intramuscular injection once 200 Units, Intramuscular, Once, On Nancy 07/22/24 at 1015, For 1 dose, Charging context for this clinic-administered medication: Medically Necessary/Insurance Botox 100 UNIT a s directed Injection Once every [address] Figueroa Active Ceramax - (20 sources) Ceramax - Senior Account Executive ally prn Active clopidogrel 75 mg oral tablet (20 sources) [id number] Platelet Inhibitor Start: 11-02-2017 End: 06-19-2024 take 1 tablet by mouth once daily Clopidogrel (Plavix) 75 mg Tablet Active 75 MG PO Daily November 02, 2017 12:00am Comment on above: Take 1 tablet by duncan th once daily. Flaxseed Oil 1200 MG (20 sources) take 1200 mg by mouth twice daily Flaxseed Oil 120 0 MG as directed Orally Twice a day Active Fluoride (Sodium) (Denta 500 0 Plus) 1.1 % cream (9 sources) Start: 09-13-2024 Fluoride (Sodi um) (Denta 5000 Plus) 1.1 % cream Active 1 APPLIC DENTAL Daily September 13, 2024 12:00am lasmiditan 100 mg oral table t (20 sources) Start: 06-22-2024 Lasmiditan Suc cinate (Reyvow) 100 MG tablet Indications: Migraine 1 po severe migraine max [address] per [address] not drive for 8 hours after medication 9 tablet 2 06/22/2024 Active Start: 06-19-2024 End: 06-22-2024 take 2 tablets by mouth every week Lasmiditan Succinate (Reyvow) 100 MG tablet Indications: Migraine 1 po severe migraine max 2 per week do not drive for 8 hours after medication 9 tablet 2 06/22/2024 06/22/2024 Discontinued Start: 11-05-2023 End: 09-07-2024 take 1 tablet by mouth once daily as needed for headache Lasmiditan (Reyvow) 50 mg tablet Discontinued 100 MG PO Daily as needed for headaches November 05, 2023 12:00am September 07, 2024 9:51am End: 06-19-2024 take 1 tablet by mouth once daily as needed Lasmiditan Succinate (Reyvow) 100 MG tablet Indications: Migraine Take 100 mg by mouth Daily as needed 1 po severe migraine max 2 per week do not drive for 8 hours after medication 06/19/2024 Discontinued (Reorder) levothyroxine sodium 0.075 mg oral tablet (20 sources) l-Thyroxine Start: 05-31-2024 take 1 tablet by mouth once daily in the morning Levothyroxine 75 mcg tablet Active 0 .ROUTE .COMPLEX May 31, 2024 5:54am TAKE 1 TABLET BY MOUTH EVERY DAY AT 6:30 AM Start: 04-17-2023 End: 05-31-2024 take 1 tablet by mouth once daily Levothyroxine 75 mcg tablet Discontinued 75 MCG PO DAILY@0630 90 November 27, 2023 1:20pm May 31, 2024 5:54am Start: 04-16-2023 End: 04-17-2023 take 1 tablet by mouth once daily Levothyroxine 100 mcg tablet Discontinued 100 MCG PO Daily April 16, 2023 1:44pm April 17, 2023 1:42pm Start: 02-17-2023 End: 04-16-2023 Levothyroxine 100 mcg Tablet Discontinued 75 MCG PO Daily February 17, 2023 9:09am April 16, 2023 1:44pm Start: 02-17-2023 End: 04-16-2023 take 75 ug by mouth once daily Levothyroxine Discontin ued 75 MCG PO Daily February 17, 2023 10:09am April 16, 2023 2:44pm Start: 01-27-2023 End: 02-17-2023 take 1 tablet by mouth once daily Levothyroxine 100 mcg Tablet Discontinued 100 MCG PO Daily January 26, 2023 11:00pm February 17, 2023 9:09am Start: 07-27-2018 Levothyroxine (Synthroid) 112 mcg tablet Active 100 MCG PO Every morning July 27, 2018 1:00am Start: 12-03-2017 End: 03-13-2023 take 1 tablet by mouth once daily in the morning Levothyroxine (Synthroid) 112 mcg tablet Discontinued 112 MCG PO Every morning July 27, 2018 12:00am January 27, 2023 12:06am levothyroxine (S ynthroid, Levoxyl) 75 MCG tablet Take 125 mcg by mouth in the morning. Take before meals. Active take 1 tablet by duncan th once daily Levothyroxine Sodium 75 MCG 1 Tablet Orally Once a day @6:30 for 90 days PER [facility] DISCHARGE 04/17/23 Active take 1 tablet by duncan th once daily in the morning Levothyroxine Sodium 100 MCG TAKE ONE TABLET BY MOUTH EVERY MORNING ON EMPTY STOMACH for 90 Active take 1 tablet by duncan th once daily in the morning Levothyroxine Sodium 112 MCG TAKE ONE TABLET BY MOUTH EVERY MORNING ON EMPTY STOMACH Active Comment on above: once daily. Take 100 mcg by mout h every morning. Take on an empty stomach lisinopril 10 mg oral tablet (20 sources) Angiotensin Converting Enzyme Inhibitor Start: 06-14-2024 take 1 tablet by mouth once daily Lisinopril 10 mg tablet Active 10 MG PO Daily June 14, 2024 3:22pm Start: 06-08-2024 End: 06-14-2024 take 1 tablet by mouth twice daily Lisinopril 10 mg tablet Discontinued 0 .ROUTE .COMPLEX 90 June 08, 2024 12:16pm June 14, 2024 3:24pm TAKE 1 TABLET BY MOUTH twice a day Start: 02-02-2024 End: 06-08-2024 take 1 tablet by mouth once daily Lisinopril 10 mg tablet Discontinued 0 .ROUTE .COMPLEX 90 February 02, 2024 5:54am June 08, 2024 12:16pm TAKE 1 TABLET BY MOUTH EVERY DAY Start: 11-02-2017 End: 02-02-2024 take 1 tablet by mouth once daily in the morning Lisinopril (Zestril) 10 mg Tablet Discontinued 10 MG PO Every morning November 02, 2017 12:00am February 02, 2024 5:54am Comment on above: Take 1 tablet by duncan th once daily. magnesium oxide 500 mg oral tablet (20 sources) Start: 11-13-2023 take 1 tablet by mouth once daily Magnesium Oxide 500 mg magnesium tablet Active 500 MG PO Daily November 13, 2023 12:00am magnesium oxide 400 mg magnesium cap Take by mouth twice daily. 0 Active Comment on above: Take by mouth twice daily. naproxen sodium 550 mg oral tablet (20 sources) Nonsteroidal Anti-inflammatory Drug Start: take 1 tablet by mouth once daily at mealtime naproxen sodium (Anaprox DS) 550 MG tablet Indications: Intractable chronic migraine without aura and with status migrainosus (CMS/HCC) 1 po daily for 10 days with food. 10 tablet 07/26/2024 Active Naproxen Sodium (Aleve) 220 MG capsule Take 220 mg by mouth if needed Active 24 hr niacin 500 mg extended release oral tablet (20 sources) Nicotinic Acid Start: 04-05-2024 Niacin 500 mg tablet extended release 24 hr Active 1000 MG PO Twice daily April 04, 2024 11:00pm Start: 04-05-2024 take 1000 mg by mout h twice daily Niacin Active 1000 MG PO Twice daily April 05, 2024 12:00am Start: 12-21-2021 End: 04-05-2024 take 2 tablets by mouth twice daily Niacin (Niacor) 500 mg Tablet Discontinued 1000 MG PO Twice daily December 20, 2021 11:00pm April 05, 2024 8:08am takes 2 tabs BID Start: 03-08-2019 End: 12-21-2021 take 1 tablet by mouth twice daily Niacin 1,000 mg Tablet Extended Release Discontinued 1000 MG PO Twice daily March 07, 2019 11:00pm December 21, 2021 11:57am Start: 11-02-2017 End: 03-08-2019 take 2 tablets by mouth twice daily Niacin 500 mg Tablet Discontinued 1000 MG PO Twice daily November 02, 2017 12:00am March 08, 2019 9:13am Start: 11-02-2017 End: 03-08-2019 take 1000 mg by mouth twice daily Niacin Discontinued 1000 MG PO Twice daily November 02, 2017 1:00am March 08, 2019 10:13am Comment on above: Take 1,000 mg by duncan th twice daily with meals. Nurtec (20 sources) Nurtec prn Activ e ondansetron 8 mg disintegrating oral tablet (14 sources) Serotonin-3 Receptor Antagonist Start: 07-06-2024 End: 07-16-2024 take 1 tablet by mouth once ondansetron ODT (Zofran-ODT) 8 MG disintegrating tablet Indications: Acute rhinosinusitis Take 1 tablet (8 mg) by mouth every 12 (twelve) hours if needed for nausea or vomiting for up to 10 days 20 tablet 07/06/2024 07/16/2024 Active Start: 06-14-2024 End: 09-07-2024 take 1 tablet by mouth every eight hours as needed for nausea and vomiting Ondansetron 4 mg tablet,disintegrating Discontinued 4 MG PO Every 8 hours as needed for nausea and vomiting June 13, 2024 11:00pm September 07, 2024 9:51am Ozempic (1 MG/DOSE) 2 MG/1.5ML (6 sources) Ozempic (1 MG/DO SE) 2 MG/1.5ML INJECT 1 MG SUBCUTANEOUSLY WEEKLY DIRECTED Active ozempic (2 mg/dose) 8 mg/3ml solution pen-injector (4 sources) inject 2 mg by subcutaneous injection every week Ozempic (2 MG/DOSE) 8 MG/3ML INJECT 2MG SUBCUTANEOUSLY ONCE WEEKLY 28 Active pregabalin 50 mg oral capsule (20 sources) Start: 04-22-2024 End: 10-04-2024 take 1 capsule by mouth at bedtime pregabalin (Lyrica) 50 MG capsule Indications: Lumbar radiculopathy TAKE 1 CAPSULE (50 MG) BY MOUTH AT BEDTIME 90 capsule 10/04/2024 Active Start: 12-21-2021 take 3 capsules by m outh once daily at bedtime Pregabalin (Lyrica) 50 mg capsule Active 150 MG PO Daily at bedtime December 20, 2021 11:00pm Start: 12-21-2021 take 1 capsule by mo uth once daily at bedtime Pregabalin (Lyrica) 50 mg capsule Active 50 MG PO Daily at bedtime December 21, 2021 12:00am TAKE ONE CAPSULE BY MOUTH AT BEDTIME WITH 100MG DOSE Start: 12-15-2021 End: 06-19-2024 Pregabalin (Lyrica) 100 mg c apsule Active 100 MG PO Every morning December 20, 2021 11:00pm take 100mg qam and 150mg qhs. Start: 12-15-2021 End: 12-21-2021 Pregabalin 100 mg capsule Discontinued 150 MG PO Bedtime December 14, 2021 11:00pm December 21, 2021 11:30am Start: 12-15-2021 End: 12-21-2021 take 150 mg by mouth at bedtime Pregabalin Discontinue d 150 MG PO Bedtime December 15, 2021 12:00am December 21, 2021 12:30pm Start: 12-10-2020 End: 12-21-2021 take 1 capsule by mouth twice daily pregabalin (LYRICA) 100 mg capsule Take 100 mg by mouth twice daily. 0 12/10/2020 Active Comment on above: Take 100 mg by mouth twice daily. qulipta 60 mg tablet (4 sources) take 1 tablet by mouth every twenty-four hours Qulipta 60 MG 1 tablet Orally Once a day Active Qulipta 60 MG tablet (11 sources) Start: take 1 tablet by mouth once daily Qulipta 60 MG tablet Indications: Lumbar radiculopathy , Radiculopathy, lumbar region TAKE ONE TABLET BY MOUTH ONCE DAILY 30 tablet 2 06/28/2024 Active Semaglutide (17 sources) Start: inject 2 mg by subcutaneous injection every week Semaglutide Active 2 MG SUBCUT every week 3 April 05, 2024 9:27am Start: 12-12-2023 End: 04-05-2024 inject 2 mg by subcutaneous injection every week Semaglutide Discontinued 2 MG SUBCUT every week December 12, 2023 9:07am April 05, 2024 9:28am Start: 12-12-2023 inject 2 mg by subcu taneous injection every week Semaglutide Active 2 MG SUBCUT every week 3 December 12, 2023 9:07am Semaglutide (Ozempic) 2 mg/dose (8 mg/3 mL) pen injector (13 sources) Start: 2024 inject 2 mg by subcutaneous injection every week Semaglutide (Ozempic) 2 mg/dose (8 mg/3 mL) pen injector Active 2 MG SUBCUT every week 2024 2:54pm Start: 07-19-2024 End: 2024 inject 2 mg by subcutaneous injection every week Semaglutide (Ozempic) 2 mg/dose (8 mg/3 mL) pen injector Discontinued 0 .ROUTE .COMPLEX July 19, 2024 5:48am 2024 2:54pm INJECT 2 MG (0.75 ML) SUBCUTANEOUSLY EVERY WEEK Start: 07-19-2024 inject 2 mg by subcu taneous injection every week Semaglutide (Ozempic) 2 mg/dose (8 mg/3 mL) pen injector Active 0 .ROUTE .COMPLEX July 19, 2024 5:48am INJECT 2 MG (0.75 ML) SUBCUTANEOUSLY EVERY WEEK sertraline 50 mg oral tablet (2 sources) Serotonin Reuptake Inhibitor Start: 11-09-2024 take 1 tablet by mouth once daily Sertraline 50 mg tablet Active 50 MG PO Daily November 09, 2024 12:00am Vitamin C 1000 MG (20 sources) take 1 tablet by mouth once daily take 1 tablet by mouth once peterson y Vitamin C 1000 MG 1 tablet Orally Once a day Active Completed/Discontinued Medications Medication Drug Class(es) Dates Sig (Normalized) Sig (Original) acetaminophen 325 mg / HYDROcodone bitartrate 5 mg oral tablet (20 sources) Opioid Agonist Start: 03-07-2023 End: 04-16-2023 take 1 tablet by mouth every four to six hours as needed for pain Hydrocodone-Acetami nophen 5-325 mg tablet Discontinued 1 TAB PO EVERY 4-6 HOURS as needed for pain 12 4 March 07, 2023 April 16, 2023 1:42pm Start: 12-30-2022 End: 01-26-2023 take 1 tablet by mouth every four to six hours as needed for pain Hydrocodone-Acetaminophen 5-325 mg table t Discontinued 1 TAB PO EVERY 4-6 HOURS as needed for Pain 7 2 December 30, 2022 January 26, 2023 8:03pm Start: 08-03-2018 End: 04-14-2020 take 1-2 tablets by mouth every six hours as needed for pain Hydrocodone-Acetaminophen ([place]) 5-325 mg tablet Discontinued 2 TAB PO Q6H as needed for pain 45 August 03, 2018 April 14, 2020 5:25pm 1-2 tabs every 6 hours as needed for pain amitriptyline hydrochloride 25 mg oral tablet (20 sources) Tricyclic Antidepressant Start: 11-13-2023 End: 07-26-2024 take 1 tablet by mouth once daily at bedtime Amitriptyline 25 mg tablet Discontinued 25 MG PO Daily at bedtime November 25, 2023 11:52am June 06, 2024 2:56pm take 1 tablet by duncan th every twenty-four hours Amitriptyline HCl 25 MG 1 tablet at bedtime Orally Once a day Active amoxicillin 875 mg / clavulanate 125 mg oral tablet (7 sources) Penicillin-class Antibacterial Start: 10-18-2024 End: 11-09-2024 take 1 tablet by mouth twice daily Amoxicillin-Pot Clavulanate 875-125 mg tablet Discontinued 1 TAB PO Twice daily October 18, 2024 12:00am November 09, 2024 10:26am Start: 07-06-2024 End: 07-16-2024 take 1 tablet by mouth in the morning amoxicillin-clavulanate (Augmentin) 875-125 MG tablet Indications: Acute rhinosinusitis Take 1 tablet (875 mg) by mouth in the morning and 1 tablet (875 mg) before bedtime. Do all this for 10 days. 20 tablet 07/06/2024 07/16/2024 Active ascorbic acid 1000 mg oral tablet (20 sources) Vitamin C Start: 08-20-2023 End: 04-05-2024 take 1 g by mouth once daily Ascorbic Acid (Vitamin C) (Vitamin C) 1,000 mg Tablet Discontinued 1 GM PO Daily August 20, 2023 12:00am April 05, 2024 8:06am Start: 03-08-2019 End: 01-26-2023 take 1 g by mouth once daily Ascorbic Acid (Vitamin C) (Vitamin C) 1,000 mg Tablet Discontinued 1 GM PO Daily March 07, 2019 11:00pm January 26, 2023 8:03pm Comment on above: Take 1,000 mg by duncan th once daily. biotin 10 mg oral capsule (20 sources) Start: 11-02-2017 End: 03-08-2019 take 1 capsule by mouth twice daily Biotin 10,000 mcg Capsule Discontinued 26999 MCG PO Twice daily November 02, 2017 12:00am March 08, 2019 9:12am Comment on above: Take by mouth twice daily. Calcium (20 sources) Phosphate Binder, Calcium Start: 01-27-2023 End: 08-20-2023 take 1 capsule by mouth once daily Calcium 600 mg Capsule Discontinued 600 MG PO Daily January 26, 2023 11:00pm August 20, 2023 10:47am Start: 01-27-2023 End: 08-20-2023 take 600 mg by mouth once daily Calcium Discontinued 600 MG PO Daily January 27, 2023 12:00am August 20, 2023 11:47am Start: 01-27-2023 End: 08-20-2023 take 600 mg by mouth once daily Calcium Discontinued 600 MG PO Daily January 26, 2023 11:00pm August 20, 2023 10:47am Start: 01-27-2023 take 600 mg by mouth once daily Calcium Active 600 MG PO Daily January 26, 2023 11:00pm Start: 01-27-2023 take 600 mg by mouth once daily Calcium Active 600 MG PO Daily January 27, 2023 12:00am cephalexin 500 mg oral capsule (20 sources) Cephalosporin Antibacterial Start: 12-25-2023 End: 01-06-2024 take 1 capsule by mouth twice daily Cephalexin 500 mg capsule Discontinued 500 MG PO Twice daily 10 December 24, 2023 11:00pm January 06, 2024 8:17am Start: 12-30-2022 End: 01-26-2023 take 2 capsules by mouth every twelve hours Cephalexin 500 mg capsule Discontinued 1000 MG PO Q12H 40 December 29, 2022 11:00pm January 26, 2023 8:03pm Start: 12-30-2022 End: 01-26-2023 take 1000 mg by mouth every twelve hours Cephalexin Discontinued 1000 MG PO Q12H 40 December 30, 2022 12:00am January 26, 2023 9:03pm take 1 capsule by mo ut every twelve hours as needed Cephalexin 500 MG 1 capsule Orally Q12HR for 10 days PER [facility] DISCHARGE 12/30/22 Not-Taking/PRN cholecalciferol 0.025 mg oral tablet (20 sources) Vitamin D Start: 12-21-2021 End: 08-20-2023 take 1 tablet by mouth once daily Cholecalciferol (Vitamin D3) (Vitamin D3) 25 mcg (1,000 unit) Tablet Discontinued 1000 UNIT PO Daily December 20, 2021 11:00pm August 20, 2023 10:47am Cholecalciferol, Vitamin D3, (VITAMIN D) 25 mcg (1,000 unit) cap Take 1,000 Units by mouth once daily. 0 Active Comment on above: Take 1,000 Units by mouth once daily. clobetasol propionate 0.0005 mg/mg topical ointment (20 sources) Corticosteroid Start: 11-27-2023 End: 09-07-2024 Clobetasol 0.05 % ointment Discontinued 1 APPLIC TOPICAL Daily as needed for eczema November 27, 2023 1:05pm September 07, 2024 9:50am FreeTextSi application to affected area Externally 2-3 times daily then prn; Note: Source Status: Takingprn; Provider: Abiel Costello ( ) Start: 11-13-2023 End: 11-27-2023 Clobetasol 0.05 % ointment D iscontinued 1 APPLIC TOPICAL November 13, 2023 12:00am November 27, 2023 1:05pm FreeTextSi application to affected area Externally 2-3 times daily then prn; Note: Source Status: Takingprn; Provider: Abiel Costello ( ) Start: 12-21-2021 End: 01-26-2023 Clobetasol (Temovate) 0.05 % ointment Discontinued 1 APPLIC TOPICAL MOTUWETH as needed for as directed December 20, 2021 11:00pm January 26, 2023 8:04pm APPLY TO HANDS FRIDAY-FRIDAY, TAKE WEEKENDS OFF. Clobetasol Propi rosalee 0.05 % 1 application to affected area Externally 2-3 times daily then prn prn Active clobetasol (NATALIA VATE) 0.05 % cream Apply to affected area three times daily. 0 Active Comment on above: Apply to affected ar ea three times daily. cyclobenzaprine hydrochloride 10 mg oral tablet (20 sources) Muscle Relaxant Start: 12-16-19 End: 06-02-20 take 1 tablet by mouth twice daily Cyclobenzaprine 10 mg tablet Discontinued 10 MG PO Twice daily December 14, 2021 11:00pm June 02, 2024 10:35am [facility] twenty-four hours Cyclobenzaprine HCl 10 MG 1 tablet at bedtime as needed Orally Once a day Active Comment on above: Cyclobenzaprine Acti ve 10 MG PO Twice daily December 15, 2021 12:00am diclofenac sodium 50 mg delayed release oral tablet (20 sources) Nonsteroidal Anti-inflammatory Drug Start: 04-14-20 End: 12-17-19 take 1 tablet by mouth three times daily as needed Diclofenac Sodium 50 mg Tablet,Delayed Release (Dr/Ec) Discontinued 50 MG PO Three times daily as needed for Dry Skin April 13, 2020 11:00pm December 15, 2021 11:07pm doxycycline hyclate 100 mg oral capsule (20 sources) Tetracycline-class Drug Start: 11-13-19 End: 03-05-20 take 1 capsule by mouth once daily as needed Doxycycline Hyclate 100 mg capsule Discontinued 100 MG PO Daily as needed for eczema November 27, 2023 1:04pm March 05, 2024 10:15am Start: 04-14-2020 End: 01-26-2023 take 1 tablet by mouth twice daily as needed Doxycycline Hyclate 100 mg Tablet Discontinued 100 MG PO Twice daily as needed for Dry Skin April 13, 2020 11:00pm May 7th, 2023 8:02pm take 1 capsule by mo uth every twenty-four hours Doxycycline Hyclate 100 MG 1 capsule Orally Once a day PRN Active emollient combination no.101 (CERAMAX) crea (2 sources) emollient combin ation no.101 (CERAMAX) crea Apply to affected area three times daily. 0 Active Comment on above: Apply to affected ar ea three times daily. Emollient Combination No.101 (Ceramax) cream (20 sources) Start: 11-27-2023 End: 09-07-2024 Emollient Combination No.101 (Ceramax) cream Discontinued 1 APPLIC TOPICAL Daily as needed for eczema November 27, 2023 1:04pm September 07, 2024 9:51am Start: 11-27-2023 Emollient Comb ination No.101 (Ceramax) cream Active 1 APPLIC TOPICAL Daily as needed for eczema November 27, 2023 1:04pm Start: 11-27-2023 Emollient Comb ination No.101 (Ceramax) cream Active 1 APPLIC TOPICAL Daily November 27, 2023 2:04pm Start: 11-27-2023 Emollient Comb ination No.101 (Ceramax) cream Active APPLIC TOPICAL November 27, 2023 2:04pm Start: 11-13-2023 End: 11-27-2023 Emollient Combination No.101 (Ceramax) cream Discontinued APPLIC TOPICAL November 13, 2023 12:00am November 27, 2023 1:05pm Start: 11-13-2023 End: 11-27-2023 Emollient Combination No.101 (Ceramax) cream Discontinued APPLIC TOPICAL November 13, 2023 1:00am November 27, 2023 2:05pm Start: 11-13-2023 Emollient Comb ination No.101 (Ceramax) cream Active APPLIC TOPICAL November 13, 2023 12:00am 1 ml erenumab-aooe 140 mg/ml auto-injector (20 sources) Start: 03-08-2019 End: 04-14-2020 inject 140 mg by subcutaneous injection every month Erenumab-Aooe 140 mg/mL auto-injector Discontinued 140 MG SUBCUT every month March 07, 2019 11:00pm April 14, 2020 5:25pm Start: 03-08-2019 End: 04-14-2020 inject 140 mg by subcutaneous injection every month Erenumab-Aooe Discontinued 140 MG SUBCUT every month March 08, 2019 12:00am April 14, 2020 6:25pm Start: 07-27-2018 End: 03-08-2019 inject 70 mg by subcutaneous injection every month Erenumab-Aooe 70 mg/mL auto-injector Discontinued 70 MG SUBCUT every month July 27, 2018 12:00am March 08, 2019 9:12am Start: 07-27-2018 End: 03-08-2019 inject 70 mg by subcutaneous injection every month Erenumab-Aooe Discontinued 70 MG SUBCUT every month July 27, 2018 1:00am March 08, 2019 10:12am 1.5 ml fremanezumab-vfrm 150 mg/ml prefilled syringe (20 sources) Start: 01-26-2023 End: 04-16-2023 Fremanezumab-Vfrm (Ajovy Syringe) 225 mg/1.5 mL syringe Discontinued 0 .ROUTE .COMPLEX January 25, 2023 11:00pm April 16, 2023 1:43pm mg subcutaneously Ajovy 225 MG/1.5 ML as directed subcutaneously once a month Not-Taking/PRN gabapentin 100 mg oral capsule (20 sources) Anti-epileptic Agent Start: 11-02-2017 End: 12-16-2021 take 3 capsules by mouth three times daily Gabapentin 100 mg Capsule Discontinued 300 MG PO Three times daily November 02, 2017 12:00am December 16, 2021 12:12am Start: 11-02-2017 End: 12-16-2021 take 300 mg by mouth three times daily Gabapentin Discontinued 300 MG PO Three times daily November 02, 2017 1:00am December 16, 2021 1:12am 1 ml galcanezumab-gnlm 120 m g/ml auto-injector (20 sources) Start: 04-14-2020 End: 03-13-2023 Galcanezumab-Gnlm (Emgality Pen) 120 mg/mL pen injector Discontinued MG SUBCUT December 14, 2021 11:00pm December 15, 2021 11:13pm inject 120 mg by sub cutaneous injection every month Emgality 120 MG/ML as directed Subcutaneous once a month Active Comment on above: Inject 1 mL subcutan eously once every month. garlic preparation 300 mg oral tablet (1 source) Non-Standardized Food Allergenic Extract Garlic 300 mg cap Take by mouth. 0 Active Comment on above: Take by mouth. Ibuprofen (2 sources) Nonsteroidal Anti-inflammatory Drug IBUPROFEN (MOTRIN ORAL) Take by mouth as needed. 0 Active Comment on above: Take by mouth as nee ded. linseed oil 1000 mg oral capsule (20 sources) Start: 03-08-20 End: 04-05-20 take 1 capsule by mouth twice daily Flaxseed Oil 1,000 mg Capsule Discontinued 1000 MG PO Twice daily March 07, 2019 11:00pm April 05, 2024 8:06am Flaxseed Oil 120 0 MG as directed Orally Twice a day Active Comment on above: Take by mouth twice daily. Magnesium (20 sources) Start: 03-08-2019 End: 11-13-2023 take 2 tablets by mouth once daily Magnesium 250 mg Tablet Discontinued 500 MG PO Daily March 07, 2019 11:00pm November 13, 2023 8:39am Start: 03-08-2019 End: 11-13-2023 take 500 mg by mouth once daily Magnesium Discontinued 500 MG PO Daily March 08, 2019 12:00am November 13, 2023 9:39am Start: 03-08-2019 End: 11-13-2023 take 500 mg by mouth once daily Magnesium Discontinued 500 MG PO Daily March 07, 2019 11:00pm November 13, 2023 8:39am Start: 03-08-2019 take 500 mg by mouth once peterson y Magnesium Active 500 MG PO Daily March 07, 2019 11:00pm Start: 03-08-2019 take 500 mg by mouth once peterson y Magnesium Active 500 MG PO Daily March 08, 2019 12:00am magnesium 250 MG tablet Take 500 mg by mouth Active take 1 tablet by duncan th once daily take 1 tablet by duncan th once daily Magnesium 500 MG 1 tablet with a meal Orally Once a day for 30 day(s) Active melatonin 10 mg oral tablet (20 sources) Start: 08-20-2023 End: 09-07-2024 take 1 tablet by mouth at bedtime as needed Melatonin 10 mg Tablet Discontinued 10 MG PO Bedtime as needed for Insomnia August 20, 2023 12:00am September 07, 2024 9:51am Start: 03-08-2019 End: 01-26-2023 take 1 tablet by mouth at bedtime as needed for sleep Melatonin 10 mg Tablet Discontinued 10 MG PO Bedtime as needed for Sleep March 07, 2019 11:00pm January 26, 2023 8:02pm Melatonin 10 MG as directed Orally PRN Active Melatonin 10 MG as directed Orally PRN Active Comment on above: Take by mouth. meloxicam 7.5 mg oral tablet (9 sources) Nonsteroidal Anti-inflammatory Drug Start: 09-27-19 End: 10-06-19 take 1-2 tablets by mouth once daily Meloxicam 7.5 mg tablet Discontinued 0 PO Daily September 27, 2024 12:00am October 06, 2024 2:29pm 1-2 tabs daily as directed orally daily; metFORMIN hydrochloride 1000 mg oral tablet (20 sources) Biguanide Start: 06-02-20 End: 08-09-20 take 1 tablet by mouth twice daily Metformin 1,000 mg tablet Discontinued 1000 MG PO Twice daily June 01, 2024 11:00pm August 09, 2024 8:47am Start: 11-02-2017 End: 09-03-2023 take 1 tablet by mouth twice daily Metformin 1,000 mg Tablet Discontinued 1000 MG PO Twice daily November 02, 2017 12:00am September 03, 2023 9:34am On Hold: Resume on 04/19/23. Start: 11-02-2017 End: 11-02-2017 take 1 mg by mouth twice daily Metformin 500 mg Tablet Discontinued 1 MG PO Twice daily November 02, 2017 12:00am November 02, 2017 12:35pm Start: 11-02-2017 End: 11-02-2017 take 1 mg by mouth twice daily Metformin Discontinued 1 MG PO Twice daily November 02, 2017 1:00am November 02, 2017 1:35pm Comment on above: Take 1 tablet by duncan th twice daily with meals. methylPREDNISolone 4 mg oral tablet (20 sources) Corticosteroid Start: 2023 End: 2024 take 1 tablet by mouth once daily Methylprednisolone (Medrol (Vincent)) 4 mg tablets,dose pack Discontinued 4 MG PO Daily September 13, 2024 12:00am September 27, 2024 9:24am Start: 12-10-2023 End: 02-04-2024 take 1 tablet by mouth once Methylprednisolone (Medrol (Vincent)) 4 mg tablets,dose pack Discontinued 0 PO per package directions December 09, 2023 11:00pm February 04, 2024 9:53am PO PER PKG DIR ozempic (1 mg/dose) 4 mg/3ml solution pen-injector (4 sources) inject 1 mg by subcutaneous injection every week as needed Ozempic (1 MG/DOSE) 4 MG/3ML INJECT 1MG SUBCUTANEOUS ONCE A WEEK for 28 Not-Taking/PRN phenazopyridine hydrochloride 100 mg oral tablet (20 sources) Start: 12-22-2021 End: 12-04-2022 take 2 tablets by mouth once after mealtime Phenazopyridine 100 mg Tablet Discontinued 200 MG PO 3x/Day after meals 6 December 21, 2021 11:00pm December 04, 2022 10:44am Start: 12-22-2021 End: 12-04-2022 take 200 mg by mouth once after mealtime Phenazopyridine Discontinued 200 MG PO 3x/Day after meals 6 December 22, 2021 12:00am December 04, 2022 11:44am take 1 tablet by duncan th every eight hours Phenazopyridine HCl 200 MG 1 tablet after meals Orally Three times a day Active predniSONE 10 mg oral tablet (19 sources) take 1 tablet by mouth every twenty-four hours prednisone 10 MG 1 tablet Orally Once a day Urgent Care Not-Taking/PRN prochlorperazine 10 mg oral tablet (2 sources) Phenothiazine Start: 2017 take 1 tablet by mouth every six hours as needed prochlorperazine (COMPAZINE) 10 mg tablet Take 1 tablet by mouth every 6 hours as needed (headache). 30 tablet 11 06/25/2018 Active Comment on above: Take 1 tablet by duncan th every 6 hours as needed (headache). QULIPTA 60 mg tablet (1 source) Start: 2022 take 1 tablet by mouth once daily QULIPTA 60 mg tablet Take 60 mg by mouth once daily. 0 01/02/2023 Active Comment on above: Take 60 mg by mouth once daily. rimegepant 75 mg disintegrating oral tablet (20 sources) Start: 2022 End: 2023 take 8 tablets by mouth once daily as needed for headache Rimegepant (Nurtec Odt) 75 mg tablet,disintegrating Discontinued 75 MG PO Daily as needed for Migraine Headache April 15, 2023 11:00pm September 07, 2024 9:51am max 8 doses per month Start: 04-14-2020 End: 01-26-2023 take 1 tablet by mouth once daily as needed for headache Rimegepant (Nurtec Odt) 75 mg tablet,disintegrating Discontinued 75 MG PO Daily as needed for headache April 13, 2020 11:00pm January 26, 2023 8:02pm 1 mg dose 1.5 ml semaglutide 1.34 mg/ml pen injector (20 sources) Start: 03-02-2021 inject 1 mg by intramuscular injection every week OZEMPIC 1 mg/dose (2 mg/1.5 mL) pnij Inject 1 mg intramuscularly one time a week. 0 03/02/2021 Active inject 0.25 mg by brown bcutaneous injection every week, then inject 0.5 mg by subcutaneous injection every week semaglutide (Ozempic, 0.25 or 0.5 MG/DOSE,) 2 MG/1.5ML solution pen-injector Inject under the skin 1 (one) time per week INJECT 0.25MG SUBCUTSNEOUSLY WEEKLY FOR 4 WEEKS, THEN 0.5 MG WEEKLY FOR 4 WEEKS Active Ozempic (1 MG/DO SE) 2 MG/1.5ML INJECT 1 MG SUBCUTANEOUSLY WEEKLY DIRECTED Active Comment on above: Inject 1 mg intramus cularly one time a week. Semaglutide (20 sources) Start: End: inject 1 mg by subcutaneous injection every week Semaglutide (Ozempic) 1 mg/dose (4 mg/3 mL) pen injector Discontinued 2 MG SUBCUT As Directed December 14, 2021 11:00pm December 12, 2023 8:09am INJECT 1 MG SUBCUTANEOUSLY ONCE WEEKLY DIRECTED- FRIDAYS Start: 12-15-2021 End: 12-12-2023 inject 1 mg by subcutaneous injection every week Semaglutide (Ozempic) 1 mg/dose (4 mg/3 mL) pen injector Discontinued 2 MG SUBCUT As Directed December 15, 2021 12:00am December 12, 2023 9:09am INJECT 1 MG SUBCUTANEOUSLY ONCE WEEKLY DIRECTED- FRIDAYS Start: 03-26-2022 inject 1 mg by subcu taneous injection every week Semaglutide (Ozempic) 1 mg/dose (4 mg/3 mL) pen injector Active 2 MG SUBCUT As Directed December 14, 2021 11:00pm INJECT 1 MG SUBCUTANEOUSLY ONCE WEEKLY DIRECTED- FRIDAYS Start: 12-15-2021 inject 1 mg by subcu taneous injection every week Semaglutide (Ozempic) 1 mg/dose (4 mg/3 mL) pen injector Active 2 MG SUBCUT As Directed December 15, 2021 12:00am INJECT 1 MG SUBCUTANEOUSLY ONCE WEEKLY DIRECTED- FRIDAYS Start: 12-15-2021 inject 1 mg by subcu taneous injection every week Semaglutide (Ozempic) 1 mg/dose (4 mg/3 mL) pen injector Active 2 MG SUBCUT As Directed December 15, 2021 12:00am INJECT 1 MG SUBCUTANEOUSLY ONCE WEEKLY DIRECTED Start: 12-15-2021 inject 1 mg by subcu taneous injection every week Semaglutide (Ozempic) 1 mg/dose (4 mg/3 mL) pen injector Active 2 MG SUBCUT FR December 15, 2021 12:00am INJECT 1 MG SUBCUTANEOUSLY ONCE WEEKLY DIRECTED Start: 12-15-2021 inject 1 mg by subcu taneous injection every week Semaglutide (Ozempic) 1 mg/dose (4 mg/3 mL) pen injector Active 1 MG SUBCUT December 14, 2021 11:00pm INJECT 1 MG SUBCUTANEOUSLY ONCE WEEKLY DIRECTED Start: 12-15-2021 inject 1 mg by subcu taneous injection every week Semaglutide (Ozempic) 1 mg/dose (4 mg/3 mL) pen injector Active 1 MG SUBCUT FR December 15, 2021 12:00am INJECT 1 MG SUBCUTANEOUSLY ONCE WEEKLY DIRECTED Semaglutide 2 mg/dose (8 mg/3 mL) pen injector (20 sources) Start: 04-05-2024 End: 07-19-2024 inject 2 mg by subcutaneous injection every week Semaglutide 2 mg/dose (8 mg/3 mL) pen injector Discontinued 2 MG SUBCUT every week 3 April 05, 2024 8:27am July 19, 2024 5:48am Start: 12-12-2023 End: 04-05-2024 inject 2 mg by subcutaneous injection every week Semaglutide 2 mg/dose (8 mg/3 mL) pen injector Discontinued 2 MG SUBCUT every week 3 December 12, 2023 8:07am April 05, 2024 8:28am sulfamethoxazole 800 mg / trimethoprim 160 mg oral tablet (11 sources) Dihydrofolate Reductase Inhibitor Antibacterial, Sulfonamide Antimicrobial Start: 04-29-2023 take 1 tablet by mouth every twelve hours Bactrim DS 800-160 MG 1 tablet Orally Twice a day for 5 days Apr, Not-Taking/PRN tacrolimus 0.001 mg/mg topical ointment (20 sources) Calcineurin Inhibitor Immunosuppressant Start: 04-14-2020 End: 01-26-2023 Tacrolimus 0.1 % Ointment Discontinued 1 APPLIC TOPICAL Twice daily as needed for As Needed April 13, 2020 11:00pm January 26, 2023 8:01pm Tacrolimus 0.03 % 1 application to affected area Externally Twice a day prn Not-Taking/PRN thioctic acid 200 mg oral capsule (20 sources) Start: 11-02-2017 End: 03-08-2019 take 1 capsule by mouth twice daily Alpha Lipoic Acid 200 mg Capsule Discontinued 200 MG PO Twice daily November 02, 2017 12:00am March 08, 2019 9:12am Alpha Lipoic Aci d 600 mg cap Take by mouth twice daily. 0 Active Comment on above: Take by mouth twice daily. tiZANidine 4 mg oral tablet (20 sources) Central alpha-2 Adrenergic Agonist Start: 06-02-2024 End: 08-09-2024 take 2 mg by mouth twice daily Tizanidine 4 mg tablet Discontinued 2 MG PO Twice daily June 01, 2024 11:00pm August 09, 2024 8:28am Start: 06-02-2024 take 2 mg by mouth twice daily Tizanidine Active 2 MG PO Twice daily June 02, 2024 12:00am Start: 05-14-2024 End: 09-17-2024 take 1 tablet by mouth in the morning, then take 1 tablet by mouth at bedtime, then take 0.5-1 tablets by mouth twice daily tiZANidine (Zanaflex) 4 MG tablet Indications: Intractable chronic migraine without aura and without status migrainosus (CMS/HCC) Take 1 tablet (4 mg) by mouth in the morning and 1 tablet (4 mg) before bedtime. TAKE 1/2-1 TABLET BY MOUTH TWICE A DAY. 180 tablet 06/19/2024 Active traMADol hydrochloride 50 mg oral tablet (20 sources) Opioid Agonist Start: 02-04-2018 End: 01-06-2024 take 1 tablet by mouth every six hours as needed for pain Tramadol 50 mg Tablet Discontinued 50 MG PO Q6H as needed for Pain August 20, 2023 12:00am January 06, 2024 8:17am ubrogepant 100 mg oral tablet (20 sources) Start: 04-16-2023 End: 08-20-2023 take 1 tablet by mouth once daily as needed for headache Ubrogepant (Ubrelvy) 100 mg tablet Discontinued 100 MG PO Daily as needed for Migraine Headache April 15, 2023 11:00pm August 20, 2023 10:48am take 1 tablet by duncan th every two hours as needed Ubrogepant (Ubrelvy) 100 MG tablet Take 100 mg by mouth 1 TAB BY MOUTH AT ONSET OF MIGRAIN, MAY REPEAT ONCE IN 2 HOURS NEEDED, MAX 2/DAY, 2 DAY/WEEK Active divalproex sodium 125 mg delayed release oral tablet (20 sources) Mood Stabilizer, Anti-epileptic Agent Start: 08-09-2024 End: 09-07-2024 take 1 tablet by mouth once daily Divalproex 125 mg tablet,delayed release (DR/EC) Discontinued 125 MG PO Daily August 09, 2024 12:00am September 07, 2024 9:51am Start: 06-19-2024 End: 07-26-2024 take 1 tablet by mouth every twenty-four hours in the morning divalproex (Depakote ER) 500 MG 24 hr tablet Indications: Intractable chronic migraine without aura and without status migrainosus (CMS/HCC) Do not crush, chew, or split. Take 500 mg by mouth in the morning and 500 mg before bedtime. Do not crush, chew, or split. 2 tablets . 60 tablet 2 06/19/2024 07/26/2024 Discontinued Start: 08-20-2023 End: 02-29-2024 take 1 tablet by mouth once daily Divalproex 500 mg ta blet extended release 24 hr Discontinued 500 MG PO Daily August 20, 2023 12:00am February 29, 2024 5:06pm Start: 07-27-2018 End: 12-04-2022 take 2 tablets by mouth once daily at bedtime Divalproex (Depakote) 500 mg tablet,delayed release (DR/EC) Discontinued 1000 MG PO Daily at bedtime July 27, 2018 12:00am December 04, 2022 10:42am take 1 tablet by [facility] twenty-four hours in the morning divalproex (Depakote ER) 500 MG 24 hr tablet Take 500 mg by mouth in the morning and 500 mg before bedtime. Do not crush, chew, or split. 2 tablets . Active take 2 tablets by mo [facility] every month in the evening Divalproex Sodium 500 MG 2 tablets in the evening in the month, then 500 mg Orally Once a day Active Comment on above: Take 2 tablets by mo [facility] daily at bedtime. Vitamin B Complex (20 sources) Start: 12-21-2021 End: 08-20-2023 take 1 capsule by mouth once daily Vitamin B Complex Discontinued 1 CAP PO Daily December 21, 2021 12:00am August 20, 2023 11:48am Start: 12-21-2021 End: 08-20-2023 take 1 capsule by mouth once daily Vitamin B Complex Discontinued 1 CAP PO Daily December 20, 2021 11:00pm August 20, 2023 10:48am Start: 12-21-2021 take 1 capsule by mo uth once daily Vitamin B Complex Active 1 CAP PO Daily December 20, 2021 11:00pm Start: 12-21-2021 take 1 capsule by mo uth once daily Vitamin B Complex Active 1 CAP PO Daily December 21, 2021 12:00am Start: 11-02-2017 End: 03-08-2019 take 1 tablet by mouth once daily Vitamin B Complex Discontinued 1 TAB PO Daily November 02, 2017 12:00am March 08, 2019 9:12am Start: 11-02-2017 End: 03-08-2019 take 1 tablet by mouth once daily Vitamin B Complex Discontinued 1 TAB PO Daily November 02, 2017 1:00am March 08, 2019 10:12am Vitamin B Complex Capsule (11 sources) Start: 12-21-2021 End: 08-20-2023 take 1 capsule by mouth once daily Vitamin B Complex Capsule Discontinued 1 CAP PO Daily December 20, 2021 11:00pm August 20, 2023 10:48am Vitamin B Complex Tablet (11 sources) Start: 11-02-2017 End: 03-08-2019 take 1 tablet by mouth once daily Vitamin B Complex Tablet Discontinued 1 TAB PO Daily November 02, 2017 12:00am March 08, 2019 9:12am vitamin b12 1 mg/ml injectable solution (20 sources) Vitamin B12 Start: 02-17-2023 End: 04-16-2023 inject 1000 ug by subcutaneous injection every week Cyanocobalamin (Vitamin B-12) 1,000 mcg/mL Solution Discontinued 1000 MCG SUBCUT every week 4 February 16, 2023 11:00pm April 16, 2023 1:43pm Start: 02-17-2023 End: 04-16-2023 inject 1000 ug by subcutaneous injection every week Cyanocobalamin (Vitamin B-12) Discontinued 1000 MCG SUBCUT every week 4 February 17, 2023 12:00am April 16, 2023 2:43pm Cyanocobalamin 1 000 MCG/ML 1 mL Injection Not-Taking Problems Active Problems Problem Classification Problem Date Documented Date Episodic/Chronic Abdominal pain (20 sources) Left flank pain; Translations: [Unspecified abdominal pain] Onset: 12-24-2023 12-21-2021 Episodic Acute cerebrovascular disease (20 sources) Cerebrovascular accident; Translations: [Cerebral infarction, unspecified] Onset: 07-29-2017 01-22-2024 Chronic Adjustment disorders (20 sources) Adjustment disorder with depressed mood; Translations: [Adjustment disorder with depressed mood] Chronic Anxiety disorders (20 sources) Anxiety disorder; Translations: [Anxiety disorder, unspecified] 11-05-2017 Chronic Aortic; peripheral; and visceral artery aneurysms (20 sources) Aneurysm of ascending aorta; Translations: [Ascending aortic aneurysm] 12-25-2023 Chronic Calculus of urinary tract (20 sources) Kidney stone; Translations: [Calculus of kidney] Onset: 12-31-2021 Resolved: 12-31-2021 Episodic Conditions associated with dizziness or vertigo (15 sources) Lightheadedness; Translations: [Dizziness and giddiness] 06-02-2024 Episodic Diabetes mellitus with complications (20 sources) Type II diabetes mellitus uncontrolled; Translations: [Type 2 diabetes mellitus with hyperglycemia] 11-10-2023 Chronic Diabetes mellitus without complication (20 sources) Diabetes mellitus; Translations: [Type 2 diabetes mellitus without complications] Onset: 07-02-2021 Resolved: 02-25-2022 Chronic Disorders of lipid metabolism (20 sources) Hyperlipidemia; Translations: [Hyperlipidemia, unspecified] Onset: 10-29-2021 Resolved: 02-25-2022 Chronic E Codes: Adverse effects of medical drugs (15 sources) Adverse reaction to drug; Translations: [Adverse effect of unspecified drugs, medicaments and biological substances, initial encounter] 06-02-2024 Episodic Essential hypertension (20 sources) Hypertensive disorder; Translations: [Essential (primary) hypertension] Onset: 10-29-2021 Resolved: 02-25-2022 Chronic Fluid and electrolyte disorders (20 sources) Lactic acidosis; Translations: [Acidosis] 12-21-2021 Episodic Genitourinary symptoms and ill-defined conditions (20 sources) Blood in urine; Translations: [Hematuria, unspecified] 12-16-2021 Episodic Headache; including migraine (20 sources) Cluster headache; Translations: [Cluster headache syndrome, unspecified, not intractable] Onset: 07-29-2017 Chronic Headache; including migraine (20 sources) Headache; Translations: [Headache] Onset: 10-05-2019 03-08-2019 Episodic Malaise and fatigue (20 sources) Asthenia; Translations: [Weakness] Onset: 02-23-2024 04-14-2020 Episodic Menopausal disorders (1 source) Menopausal and female climacteric states; Translations: [Menopausal and female climacteric states] Onset: 11-19-2023 Chronic Miscellaneous mental health disorders (20 sources) Psychologic conversion disorder; Translations: [Dissociative and conversion disorder, unspecified] 11-05-2017 Chronic Mycoses (20 sources) Onychomycosis; Translations: [Tinea unguium] 04-05-2024 Episodic Nausea and vomiting (20 sources) Nausea; Translations: [Nausea] 07-06-2024 Episodic Nonmalignant breast conditions (20 sources) Breasts asymmetrical; Translations: [Other specified disorders of breast] Episodic Nutritional deficiencies (20 sources) Cobalamin deficiency; Translations: [Deficiency of other specified B group vitamins] 02-17-2023 Episodic Osteoporosis (5 sources) Age-related osteoporosis without current pathological fracture; Translations: [Senile osteoporosis] 11-10-2023 Chronic Other acquired deformities (20 sources) Lumbar spondylolisthesis; Translations: [Spondylolisthesis, lumbar region] 11-10-2023 Episodic Other acquired deformities (11 sources) Spondylolisthesis, lumbar region; Translations: [Acquired spondylolisthesis] 11-10-2023 Episodic Other aftercare (5 sources) Encounter for follow-up examination after completed treatment for conditions other than malignant neoplasm; Translations: [Other follow-up examination] Onset: 12-31-2021 Resolved: 12-31-2021 Episodic Other aftercare (11 sources) Post-discharge follow-up; Translations: [Encounter for follow-up examination after completed treatment for conditions other than malignant neoplasm] 06-14-2024 Episodic Other circulatory disease (20 sources) History of transient ischemic attack; Translations: [Personal history of transient ischemic attack (TIA), and cerebral infarction without residual deficits] 03-08-2019 Episodic Other circulatory disease (20 sources) History of cerebrovascular accident; Translations: [Personal history of transient ischemic attack (TIA), and cerebral infarction without residual deficits] 02-15-2023 Episodic Other circulatory disease (13 sources) Personal history of transient ischemic attack (TIA), and cerebral infarction without residual deficits; Translations: [Personal history of transient ischemic attack (TIA), and cerebral infarction without residual deficits] 02-17-2023 Episodic Other connective tissue disease (20 sources) Muscle weakness of limb; Translations: [Other symptoms and signs involving the musculoskeletal system] 11-03-2017 Episodic Other connective tissue disease (20 sources) Other symptoms and signs involving the musculoskeletal system; Translations: [Other musculoskeletal symptoms referable to limbs] 01-26-2023 Episodic Other connective tissue disease (4 sources) Unspecified symptoms and signs involving the nervous system; Translations: [Other symptoms involving nervous and musculoskeletal systems] Episodic Other connective tissue disease (20 sources) Neurological symptom; Translations: [Unspecified symptoms and signs involving the nervous system] 04-16-2023 Episodic Other connective tissue disease (20 sources) Recurrent falls ; Translations: [Repeated falls] 11-10-2023 Episodic Other connective tissue disease (9 sources) Repeated falls; Translations: [History of fall] 11-10-2023 Episodic Other connective tissue disease (20 sources) Trochanteric bursitis; Translations: [Trochanteric bursitis, left hip] 01-26-2024 Episodic Other connective tissue disease (14 sources) Trochanteric bursitis, left hip; Translations: [Enthesopathy of hip region] 01-26-2024 Episodic Other connective tissue disease (14 sources) Trochanteric bursitis, right hip; Translations: [Enthesopathy of hip region] 01-26-2024 Episodic Other connective tissue disease (1 source) Pain in right hand; Translations: [Pain in right hand] Onset: 10-18-2024 Episodic Other nervous system disorders (20 sources) Walking disability; Translations: [Difficulty in walking, not elsewhere classified] Chronic Other nervous system disorders (20 sources) Left-sided piriformis syndrome; Translations: [Lesion of sciatic nerve, left lower limb] Chronic Other nervous system disorders (20 sources) Neuropathy; Translations: [Polyneuropathy, unspecified] 11-10-2023 Chronic Other nervous system disorders (20 sources) Chronic pain; Translations: [Other chronic pain] 11-10-2023 Chronic Other nervous system disorders (20 sources) Other chronic pain; Translations: [Other chronic pain] Onset: 12-24-2021 Resolved: 02-20-2022 Chronic Other nervous system disorders (20 sources) Piriformis syndrome; Translations: [Lesion of sciatic nerve, left lower limb] 11-10-2023 Chronic Other nervous system disorders (10 sources) Polyneuropathy, unspecified; Translations: [Mononeuritis of unspecified site] 11-13-2023 Chronic Other nervous system disorders (14 sources) Unable to walk; Translations: [Difficulty in walking, not elsewhere classified] 06-06-2024 Chronic Other nervous system disorders (5 sources) Difficulty in walking, not elsewhere classified; Translations: [Difficulty in walking] 06-06-2024 Chronic Other nervous system disorders (17 sources) Peripheral nerve disease ; Translations: [Polyneuropathy, unspecified] Onset: 07-29-2017 01-22-2024 Chronic Other nervous system disorders (17 sources) Aphasia; Translations: [Aphasia] Onset: 01-22-2024 01-22-2024 Chronic Other nervous system disorders (1 source) Other chronic pain; Translations: [Other chronic pain] Onset: 11-05-2023 Chronic Other nervous system disorders (20 sources) Paresthesia; Translations: [Paresthesia of skin] 11-10-2023 Episodic Other nervous system disorders (20 sources) Paresthesia of lower extremity; Translations: [Paresthesia of skin] 11-10-2023 Episodic Other nervous system disorders (6 sources) Paresthesia of skin; Translations: [Disturbance of skin sensation] 11-10-2023 Episodic Other non-traumatic joint disorders (1 source) Pain in right shoulder Episodic Other non-traumatic joint disorders (9 sources) Joint pain; Translations: [Pain in unspecified joint] 09-13-2024 Episodic Other non-traumatic joint disorders (10 sources) Pain in unspecified joint; Translations: [Pain in joint, site unspecified] Onset: 09-14-2024 09-13-2024 Episodic Other nutritional; endocrine; and metabolic disorders (20 sources) Body mass index 40+ - severely obese; Translations: [Body mass index (BMI) 45.0-49.9, adult] Onset: 12-28-2018 12-28-2018 Chronic Other nutritional; endocrine; and metabolic disorders (20 sources) Body mass index 30+ - obesity; Translations: [Body mass index (BMI) 38.0-38.9, adult] Chronic Other nutritional; endocrine; and metabolic disorders (1 source) Body mass index (BMI) 38.0-38.9, adult Chronic Other nutritional; endocrine; and metabolic disorders (1 source) Body mass index (BMI) 37.0-37.9, adult Chronic Other screening for suspected conditions (not mental disorders or infectious disease) (20 sources) Mammography abnormal; Translations: [Other abnormal and inconclusive findings on diagnostic imaging of breast] Onset: 04-05-2024 06-02-2024 Episodic Other skin disorders (20 sources) Alopecia; Translations: [Nonscarring hair loss, unspecified] Episodic Other upper respiratory disease (5 sources) Bleeding from nose; Translations: [Epistaxis] 10-18-2024 Episodic Other upper respiratory disease (1 source) Epistaxis; Translations: [Epistaxis] Onset: 10-18-2024 Episodic Other upper respiratory infections (20 sources) Maxillary sinusitis; Translations: [Chronic maxillary sinusitis] Chronic Other upper respiratory infections (2 sources) Acute rhinosinusitis; Translations: [Acute sinusitis, unspecified] 07-06-2024 Episodic Rheumatoid arthritis and related disease (16 sources) Rheumatoid arthritis; Translations: [Rheumatoid arthritis, unspecified] 09-27-2024 Chronic Screening and history of mental health and substance abuse codes (3 sources) Encounter for screening for depression; Translations: [Encounter for screening for depression] Episodic Spondylosis; intervertebral disc disorders; other back problems (20 sources) Solitary sacroiliitis; Translations: [Sacroiliitis, not elsewhere classified] Onset: 12-24-2021 Resolved: 02-20-2022 Chronic Spondylosis; intervertebral disc disorders; other back problems (20 sources) Spinal stenosis, lumbar region without neurogenic claudication; Translations: [Radiculopathy, lumbar region] Onset: 10-05-2019 Resolved: 02-20-2022 Episodic Syncope (20 sources) Near syncope; Translations: [Syncope and collapse] Onset: 06-06-2024 06-06-2024 Episodic Thyroid disorders (20 sources) Hypothyroidism; Translations: [Other specified hypothyroidism] Onset: 04-05-2024 11-03-2017 Chronic Transient cerebral ischemia (20 sources) Transient cerebral ischemia; Translations: [Transient cerebral ischemic attack, unspecified] Onset: 01-22-2024 01-26-2023 Chronic Urinary tract infections (20 sources) Pyelonephritis; Translations: [Tubulo-interstitial nephritis, not specified as acute or chronic] 12-15-2021 Episodic Past or Other Problems Problem Classification Problem Date Documented Da te Episodic/Chronic Other nervous system disorders (17 sources) Numbness; Translations: [Anesthesia of skin] Onset: 01-22-2024 01-22-2024 Episodic Other nervous system disorders (17 sources) Numbness of face; Translations: [Anesthesia of skin] Onset: 01-22-2024 01-22-2024 Episodic Other nervous system disorders (17 sources) Tremor; Translations: [Tremor, unspecified] Onset: 02-23-2024 02-23-2024 Episodic Other nervous system disorders (1 source) Anesthesia of skin; Translations: [Anesthesia of skin] Onset: 02-29-2024 Episodic Other skin disorders (2 sources) Alopecia areata; Translations: [Alopecia areata, unspecified] Onset: 04-07-2013 04-07-2013 Episodic Residual codes; unclassified (17 sources) History of clinical finding in subject; Translations: [Personal history of other medical treatment] Onset: 03-22-2023 01-22-2024 Episodic Results Test Name Value Interpretation Reference Range Facility SAPNA Antinuclear Antibodieson 10-18-2024 Antinuclear Abs, IFA Negative Normal . [facility] Comment on above: Result Comment: Nega tive <1:80 Borderline 1:80 Positive >1:80 ICAP nomenclature: [id number] For more information about Hep-2 cell patterns use ANApatterns.org, the official website for the International Consensus on Antinuclear Antibody (SAPNA) Patterns (ICAP). Performed at: - [facility] [id number] [employer]: Cliff Orlando PhD, Phone: [phone] Performed By: #### C BCNO, BMP #### [address] Alanine aminotransferase [En zymatic activity/volume] in Serum or PlasmaOrdered By: Deondre Jarrett on 10-18-2024 ALT [Catalytic activity/Vol] Alanine aminotransferase [Enzymatic activity/volume] in Serum or Plasma [facility] Albumin [Mass/volume] in Ser um or Plasma by Bromocresol green (BCG) dye binding methoOrdered By: Deondre Jarrett on 10-18-2024 Albumin BCG dye [Mass/Vol] Albumin [Mass/volume] in Serum or Plasma by Bromocresol green (BCG) dye binding metho 3.5-5.7 [facility] Alkaline phosphatase [Enzyma tic activity/volume] in Serum or PlasmaOrdered By: Deondre Jarrett on 10-18-2024 ALP [Catalytic activity/Vol] Alkaline phosphatase [Enzymatic activity/volume] in Serum or Plasma High 34-104 [facility] Appearance of UrineOrdered B y: Deondre Jarrett on 10-18-2024 Appearance (U) Urine appearance Clear [facility] Aspartate aminotransferase [ Enzymatic activity/volume] in Serum or PlasmaOrdered By: Deondre Jarrett on 10-18-2024 AST [Catalytic activity/Vol] Aspartate aminotransferase [Enzymatic activity/volume] in Serum or Plasma 13-39 [facility] Bacteria [Presence] in Urine by AutomatedOrdered By: Deondre Jarrett on 10-18-2024 Bacteria Auto Ql (U) Bacteria [Presence] in Urine by Automated None Seen [facility] Basophils Auto (Bld) [#/Vol] Ordered By: Deondre Jarrett on 10-18-2024 Basophils (Bld) [#/Vol] Automated basophil count 0.0-0.2 [facility] Basophils/100 WBC Auto (Bld) Ordered By: Deondre Jarrett on 10-18-2024 Basophils/100 WBC (Bld) Automated basophil % . [facility] Bilirubin Test strip Ql (U)O rdered By: Deondre Jarrett on 10-18-2024 Bilirubin Ql (U) Bilirubin.total [Presence] in Urine by Test strip Negative [facility] Bilirubin.total [Mass/volume ] in Serum or PlasmaOrdered By: Deondre Jarrett on 10-18-2024 Bilirubin [Mass/Vol] Bilirubin.total [Mass/volume] in Serum or Plasma 0.3-1.0 [facility] C reactive protein [Mass/vol ume] in Serum or PlasmaOrdered By: Deondre Jarrett on 10-18-2024 CRP [Mass/Vol] C reactive protein [Mass/volume] in Serum or Plasma 0.0-0.5 [facility] C-Reactive Proteinon 025 CRP [Mass/Vol] mg/L Normal 0.0-0.5 [facility] Comment on above: Result Comment: PERF ORMED BY: [place] [address] PATHOLOGIST MANAGER [employer] PAUL HUDDLESTON M.D. Performed By: #### C BCNO, BMP #### [address] Calcium [Mass/volume] in Ser um or PlasmaOrdered By: Deondre Jarrett on 10-18-2024 Calcium [Mass/Vol] Calcium [Mass/volume ] in Serum or Plasma 8.6-10.3 [facility] Calcium oxalate crystals [Pr esence] in Urine by Computer assisted methodOrdered By: Deondre Jarrett on 10-18-2024 Calcium oxalate crystals Computer assisted Ql (U) Calcium oxalate crystals [Presence] in Urine by Computer assisted method [facility] Carbon dioxide, total [Moles /volume] in Serum or PlasmaOrdered By: Deondre Jarrett on 10-18-2024 CO2 [Moles/Vol] Carbon dioxide, tota l [Moles/volume] in Serum or Plasma 21.0-31.0 [facility] Chloride [Moles/volume] in S marco antonio or PlasmaOrdered By: Deondre Jarrett on 10-18-2024 Chloride [Moles/Vol] Chloride [Moles/vol ume] in Serum or Plasma 98-107 [facility] Color Auto (U)Ordered By: Alissa Jarrett on 10-18-2024 Color (U) Color of Urine by Auto Yellow [facility] Complement C3on 10-18-2024 Complement C3 154 mg/dL Normal 82-167 [facility] Comment on above: Result Comment: Perf ormed at: [facility] [address] [id number] [employer]: Cliff Orlando PhD, Phone: [phone] Performed By: #### R DEVORAH PANEL UPP., BIOFIRECOVNOTDE #### [address] Complement C4on 10-18-2024 Complement C4 26 mg/dL Normal 12-38 [facility] Comment on above: Result Comment: PERF ORMED BY: [place] [address] PATHOLOGIST MANAGER [employer] PAUL HUDDLESTON M.D. Performed By: #### R DEVORAH PANEL UPP., BIOFIRECOVNOTDE #### [address] Complement Total (CH50)on Complement Total (CH50) >60 Normal >41 [facility] Comment on above: Result Comment: Age Male Female 1 - 30 days Not Estab. Not Estab. 31 days - 6 months >32 >20 7 months - 17 years >39 >39 >17 years >41 >41 NOTE: The adult ( >17 years ) reference interval range is used to flag abnormals on this report. If the patient is 17 years old or younger, use the table above to determine out of range values. Performed at: - [facility], [place], [place] [id number] [employer]: Cliff Orlando PhD, Phone: [phone] PERFORMED BY: [place] [address] PATHOLOGIST MANAGER [employer] PAUL HUDDLESTON M.D. Performed By: #### C MELISSA, BMP #### [address] Complete Blood Count Auto Di ffon 10-18-2024 Basophils (Bld) [#/Vol] 0.1 10*3/uL Normal 0.0-0.2 [facility] Comment on above: Performed By: #### C MELISSA, BMP #### [address] Basophils/100 WBC (Bld) 0.7 % Normal . [facility] Comment on above: Performed By: #### C MELISSA, BMP #### [address] Eosinophils (Bld) [#/Vol] 0.1 10*3/uL Normal 0.0-0.45 [facility] Comment on above: Performed By: #### C MELISSA, BMP #### [address] Eosinophils/100 WBC (Bld) 0.7 % Normal . [facility] Comment on above: Performed By: #### C MELISSA, BMP #### [address] Erythrocyte distribution width (RBC) [Ratio] 14.3 % Normal 11.9-15.3 [facility] Comment on above: Performed By: #### C MELISSA, BMP #### [address] Hematocrit (Bld) [Volume fraction] 45.6 % Normal 34.0-46.4 [facility] Comment on above: Performed By: #### C MELISSA, BMP #### [address] Hemoglobin (Bld) [Mass/Vol] 14.8 g/dL Normal 11.8-15.4 [facility] Comment on above: Performed By: #### C MELISSA, BMP #### [address] Lymphocytes (Bld) [#/Vol] 2.1 10*3/uL Normal 1.00-4.8 [facility] Comment on above: Performed By: #### C MELISSA, BMP #### [address] Lymphocytes/100 WBC (Bld) 26.0 % Normal . [facility] Comment on above: Performed By: #### C MELISSA, BMP #### [address] MCH (RBC) [Entitic mass] 28.3 pg Normal 24.7-34.3 [facility] Comment on above: Performed By: #### C MELISSA, BMP #### [address] MCV (RBC) [Entitic vol] 87.5 fL Normal 80-100 [facility] Comment on above: Performed By: #### C MELISSA, BMP #### [address] Mean Corpuscular HGB Conc 32.4 g/dL Normal 32.0-35.0 [facility] Comment on above: Performed By: #### C MELISSA, BMP #### [place] [address] [place] Monocytes (Bld) [#/Vol] 0.4 10*3/uL Normal 0.0-0.8 [facility] Comment on above: Performed By: #### C MELISSA, BMP #### [address] Monocytes/100 WBC (Bld) 4.5 % Normal . [facility] Comment on above: Performed By: #### C MELISSA, BMP #### [address] Neutrophils (Bld) [#/Vol] 5.5 10*3/uL Normal 1.8-7.7 [facility] Comment on above: Performed By: #### C MELISSA, BMP #### [place] [address] [place] Neutrophils/100 WBC (Bld) 68.1 % Normal . [facility] Comment on above: Performed By: #### C MELISSA, BMP #### [address] NRBC% 0.1 /100{WBC} Normal 0-0.5 [facility] Comment on above: Performed By: #### C MELISSA, BMP #### [address] Platelet mean volume (Bld) [Entitic vol] 10.9 fL High 6.3-10.7 [facility] Comment on above: Performed By: #### C MELISSA, BMP #### [place] [address] [place] Platelets (Bld) [#/Vol] 270 10*3/uL Normal 150-450 [facility] Comment on above: Performed By: #### C MELISSA, BMP #### [place] [address] [place] RBC (Bld) [#/Vol] 5.21 10*6/uL High 3.60-5.00 [facility] Comment on above: Performed By: #### C MELISSA, BMP #### [place] [address] [place] WBC (Bld) [#/Vol] 8.1 10*3/uL Normal 3.8-11.6 [facility] Comment on above: Performed By: #### C MELISSA, BMP #### [address] Comprehensive Metabolic Pane demetria 10-18-2024 Albumin [Mass/Vol] 4.4 g/dL Normal 3.5-5.7 [facility] Comment on above: Performed By: #### C BCNO, BMP #### [address] Albumin/Globulin [Mass ratio] 1.8 {ratio} Normal [facility] Comment on above: Performed By: #### C BCJOSEMANUEL, BMP #### [address] ALP [Catalytic activity/Vol] 109 U/L High 34-104 [facility] Comment on above: Performed By: #### C BCJOSEMANUEL, BMP #### [address] ALT [Catalytic activity/Vol] 19 U/L Normal 7-52 [facility] Comment on above: Performed By: #### C BCJOSEMANUEL, BMP #### [address] Anion gap [Moles/Vol] 12.0 mmol/L Normal 6.0-15.0 [facility] Comment on above: Performed By: #### C BCJOSEMANUEL, BMP #### [address] AST [Catalytic activity/Vol] 18 U/L Normal 13-39 [facility] Comment on above: Performed By: #### C MELISSA, BMP #### [address] Bilirubin [Mass/Vol] 0.6 mg/dL Normal 0.3-1.0 [facility] Comment on above: Performed By: #### C BCJOSEMANUEL, BMP #### [address] Calcium [Mass/Vol] 9.4 mg/dL Normal 8.6-10.3 The [facility] Comment on above: Performed By: #### C BCJOSEMANUEL, BMP #### [address] Chloride [Moles/Vol] 101 mmol/L Normal 98-107 [facility] Comment on above: Performed By: #### C BCJOSEMANUEL, BMP #### [address] [place] [address] [place] CO2 [Moles/Vol] 23.9 mmol/L Normal 21.0-31.0 [facility] Comment on above: Performed By: #### C MELISSA, BMP #### [address] Creatinine [Mass/Vol] 0.88 mg/dL Normal 0.60-1.20 [facility] Comment on above: Performed By: #### C MELISSA, BMP #### [place] [address] [place] GFR/1.73 sq M.predicted MDRD (S/P/Bld) [Vol rate/Area] mL/min/{1.73_m2} Normal [facility] Comment on above: Performed By: #### C MELISSA, BMP #### [place] [address] [place] Globulin (S) [Mass/Vol] 2.4 g/dL Normal [facility] Comment on above: Performed By: #### C MELISSA, BMP #### [address] Glucose [Mass/Vol] 237 mg/dL High 70-100 The [facility] Comment on above: Result Comment: [place] Glucose Reference Range is dependent on time and content of last meal. Glucose of more than 200 mg/dL in a nonstressed, ambulatory subject supports the diagnosis of Diabetes Mellitus. ADA recommended reference range Performed By: #### C MELISSA, BMP #### [place] [address] [place] Potassium [Moles/Vol] 3.9 mmol/L Normal 3.5-5.1 [facility] Comment on above: Performed By: #### C MELISSA, BMP #### [address] Protein [Mass/Vol] 6.8 g/dL Normal 6.4-8.9 [facility] Comment on above: Performed By: #### C MELISSA, BMP #### [place] [id number] [place] Sodium [Moles/Vol] 133 mmol/L Low 136-145 [facility] Comment on above: Performed By: #### C BCNO, BMP #### [facility] [address] Urea nitrogen [Mass/Vol] 14 mg/dL Normal 7-25 [facility] Comment on above: Performed By: #### C BCNO, BMP #### [facility] [address] [place] [address] [place] Creatinine [Mass/volume] in Serum or PlasmaOrdered By: Deondre Jarrett on 10-18-2024 Creatinine [Mass/Vol] Creatinine [Mass/v olume] in Serum or Plasma 0.60-1.20 [facility] Crystals [Presence] in Urine by AutomatedOrdered By: Deondre Jarrett on 10-18-2024 Crystals Auto Ql (U) Crystals [Presence] in Urine by Automated [facility] Dipstick and Microscopicon 0 10-18-2024 Appearance (U) Clear Normal Clear [facility] Comment on above: Order Comment: Name Collection Type:: Clean-Voided Midstream Performed By: #### C BCNO, BMP #### [place] [address] [place] Bacteria,Urine Rare Normal None Seen [facility] Comment on above: Order Comment: Name Collection Type:: Clean-Voided Midstream Performed By: #### C BCNO, BMP #### [place] [address] [place] Bilirubin,Urine Negative Normal Negative [facility] Comment on above: Order Comment: Name Collection Type:: Clean-Voided Midstream Performed By: #### C BCNO, BMP #### [place] [address] [place] Calcium Oxalate Crystals,Urine 1+ Normal [facility] Comment on above: Order Comment: Name Collection Type:: Clean-Voided Midstream Performed By: #### C BCNO, BMP #### [place] [address] [place] Color (U) Light-Yellow Normal Yellow The [facility] Comment on above: Order Comment: Name Collection Type:: Clean-Voided Midstream Performed By: #### C BCNO, BMP #### [place] [address] [place] Glucose Ql (U) >= High Normal [facility] Comment on above: Order Comment: Name Collection Type:: Clean-Voided Midstream Performed By: #### C BCNO, BMP #### [place] [address] [place] Hyaline Casts,Urine None Normal 0-8 [facility] Comment on above: Order Comment: Name Collection Type:: Clean-Voided Midstream Performed By: #### C BCNO, BMP #### [address] Ketones Ql (U) Negative Normal Negative [facility] Comment on above: Order Comment: Name Collection Type:: Clean-Voided Midstream Performed By: #### C BCNO, BMP #### [address] Leukocyte esterase Test strip Ql (U) Negative Normal Negative [facility] Comment on above: Order Comment: Name Collection Type:: Clean-Voided Midstream Performed By: #### C BCNO, BMP #### [place] [address] [place] Mucus,Urine 1+ Critically abnormal [facility] Comment on above: Order Comment: Name Collection Type:: Clean-Voided Midstream Result Comment: PERF ORMED BY: [place] [address] PATHOLOGIST MANAGER [employer] PAUL HUDDLESTON M.D. Performed By: #### C BCNO, BMP #### [place] [address] [place] Nitrite,Urine Negative Normal Negative The [facility] Comment on above: Order Comment: Name Collection Type:: Clean-Voided Midstream Performed By: #### C BCNO, BMP #### [place] [address] [place] Occult Blood,Urine Negative Normal Negative The [facility] Comment on above: Order Comment: Name Collection Type:: Clean-Voided Midstream Performed By: #### C BCNO, BMP #### [place] [address] [place] Othe Crystals,Urine 1+ Normal The [facility] Comment on above: Order Comment: Name Collection Type:: Clean-Voided Midstream Performed By: #### C BCNO, BMP #### [address] pH (U) 5.5 [pH] Normal 5.0-9.0 [facility] Comment on above: Order Comment: Name Collection Type:: Clean-Voided Midstream Performed By: #### C BCNO, BMP #### [place] [address] [place] Protein,Urine Negative Normal Negative The [facility] Comment on above: Order Comment: Name Collection Type:: Clean-Voided Midstream Performed By: #### C BCNO, BMP #### [address] RBC,Urine 5 [HPF] High 0-4 [facility] Comment on above: Order Comment: Name Collection Type:: Clean-Voided Midstream Performed By: #### C BCNO, BMP #### [address] Specificy Lefor,Urine 1.019 Normal 1.001-1.03 0 [facility] Comment on above: Order Comment: Name Collection Type:: Clean-Voided Midstream Performed By: #### C BCNO, BMP #### [place] [address] [place] Squamous Epithelial Cell,Urine 5 [HPF] High 0-2 [facility] Comment on above: Order Comment: Name Collection Type:: Clean-Voided Midstream Performed By: #### C BCNO, BMP #### [address] Urobilinogen,Urine Normal Normal Normal [facility] Comment on above: Order Comment: Name Collection Type:: Clean-Voided Midstream Performed By: #### C BCNO, BMP #### [facility] [address] WBC CLUMP, Urine Occasional High None Seen [facility] Comment on above: Order Comment: Name Collection Type:: Clean-Voided Midstream Performed By: #### C BCNO, BMP #### [facility] [address] WBC,Urine 10 [HPF] High 0-4 [facility] Comment on above: Order Comment: Name Collection Type:: Clean-Voided Midstream Performed By: #### C BCNO, BMP #### [facility] [address] Eosinophils Auto (Bld) [#/Vo l]Ordered By: Deondre Jarrett on 10-18-2024 Eosinophils (Bld) [#/Vol] Automated eosinophil count 0.0-0.45 [facility] Eosinophils/100 WBC Auto (Bl d)Ordered By: Deondre Jarrett on 10-18-2024 Eosinophils/100 WBC (Bld) Automated eosinophil % . [facility] Epithelial cells.squamous [# /area] in Urine sediment by Automated countOrdered By: Deondre Jarrett on 10-18-2024 Epithelial cells.squamous Auto (Urine sed) [#/Area] Epithelial cells.squamous [#/area] in Urine sediment by Automated count High 0-2 [facility] Erythrocyte Sedimentation Ra talia 10-18-2024 ESR (Bld) [Velocity] 25 mm/h Normal 0-29 [facility] Comment on above: Result Comment: PERF ORMED BY: [place] [address] PATHOLOGIST MANAGER [employer] PAUL HUDDLESTON M.D. Performed By: #### C BCNO, BMP #### [address] Erythrocyte distribution wid th Auto (RBC) [Ratio]Ordered By: Deondre Jarrett on 10-18-2024 Erythrocyte distribution width (RBC) [Ratio] Erythrocyte distribution width [Ratio] by Automated count 11.9-15.3 [facility] Erythrocyte sedimentation ra te by Photometric methodOrdered By: Deondre Jarrett on 10-18-2024 ESR Photometric method (Bld) [Velocity] Erythrocyte sedimentation rate by Photometric method 0-29 [facility] Erythrocytes [#/area] in Uri ne sediment by Automated countOrdered By: Deondre Jarrett on 10-18-2024 RBC Auto (Urine sed) [#/Area] Erythrocytes [#/area] in Urine sediment by Automated count High 0-4 [facility] Globulin Calc (S) [Mass/Vol] Ordered By: Deondre Jarrett on 10-18-2024 Globulin (S) [Mass/Vol] Serum globulin measurement by calculation (mass/volume) [facility] Glucose [Mass/volume] in Ser um or PlasmaOrdered By: Deondre Jarrett on 10-18-2024 Glucose [Mass/Vol] Glucose [Mass/volume ] in Serum or Plasma High 70-100 [facility] Comment on above: ADA recommended refe rence rangeRandom Glucose Reference Range is dependent on time and content of last meal. Glucose of more than 200 mg/dL in a nonstressed, ambulatory subject supports the diagnosis of Diabetes Mellitus. Glucose [Mass/volume] in Uri ne by Test stripOrdered By: Deondre Jarrett on 10-18-2024 Glucose Test strip (U) [Mass/Vol] Glucose [Mass/volume] in Urine by Test strip High Normal [facility] Hematocrit Auto (Bld) [Volum e fraction]Ordered By: Deondre Jarrett on 10-18-2024 Hematocrit (Bld) [Volume fraction] Hematocrit [Volume Fraction] of Blood by Automated count 34.0-46.4 [facility] Hemoglobin Test strip Ql (U) Ordered By: Deondre Jarrett on 10-18-2024 Hemoglobin Ql (U) Hemoglobin [Presence ] in Urine by Test strip Negative [facility] Hemoglobin [Mass/volume] in BloodOrdered By: Deondre Jarrett on 10-18-2024 Hemoglobin (Bld) [Mass/Vol] Hemoglobin [Mass/volume] in Blood 11.8-15.4 [facility] Hyaline casts [#/area] in Ur ine sediment by Automated countOrdered By: Deondre Jarrett on 10-18-2024 Hyaline casts Auto (Urine sed) [#/Area] Hyaline casts [#/area] in Urine sediment by Automated count 0-8 [facility] Ketones Test strip Ql (U)Ord ered By: Deondre Jarrett on 10-18-2024 Ketones Ql (U) Ketones [Presence] i n Urine by Test strip Negative [facility] Leukocyte clumps [Presence] in Urine by AutomatedOrdered By: Deondre Jarrett on 10-18-2024 Leukocyte clumps Auto Ql (U) Leukocyte clumps [Presence] in Urine by Automated High None Seen [facility] Leukocyte esterase [Presence ] in Urine by Test stripOrdered By: Deondre Jarrett on 10-18-2024 Leukocyte esterase Test strip Ql (U) Leukocyte esterase [Presence] in Urine by Test strip Negative [facility] Leukocytes [#/area] in Urine sediment by Automated countOrdered By: Deondre Jarrett on 10-18-2024 WBC Auto (Urine sed) [#/Area] Leukocytes [#/area] in Urine sediment by Automated count High 0-4 [facility] Leukocytes [#/volume] correc janice for nucleated erythrocytes in Blood by Automated counOrdered By: Deondre Jarrett on 10-18-2024 WBC corrected for nucl RBC Auto (Bld) [#/Vol] Leukocytes [#/volume] corrected for nucleated erythrocytes in Blood by Automated coun 3.8-11.6 [facility] Lymphocytes Auto (Bld) [#/Vo l]Ordered By: Deondre Jarrett on 10-18-2024 Lymphocytes (Bld) [#/Vol] Lymphocytes [#/volume] in Blood by Automated count 1.00-4.8 [facility] Lymphocytes/100 WBC Auto (Bl d)Ordered By: Deondre Jarrett on 10-18-2024 Lymphocytes/100 WBC (Bld) Lymphocytes/100 leukocytes in Blood by Automated count . [facility] MCH Auto (RBC) [Entitic mass ]Ordered By: Deondre Jarrett on 10-18-2024 MCH (RBC) [Entitic mass] MCH [Entitic mass] by Automated count 24.7-34.3 [facility] MCHC Auto (RBC) [Mass/Vol]Or dered By: Deondre Jarrett on 10-18-2024 MCHC (RBC) [Mass/Vol] MCHC [Mass/volume] by Automated count 32.0-35.0 [facility] MCV Auto (RBC) [Entitic vol] Ordered By: Deondre Jarrett on 10-18-2024 MCV (RBC) [Entitic vol] MCV [Entitic volume] by Automated count 80-100 [facility] Monocytes Auto (Bld) [#/Vol] Ordered By: Deondre Jarrett on 10-18-2024 Monocytes (Bld) [#/Vol] Automated blood monocyte count 0.0-0.8 [facility] Monocytes/100 WBC Auto (Bld) Ordered By: Deondre Jarrett on 10-18-2024 Monocytes/100 WBC (Bld) Automated monocyte % . [facility] Mucus [Presence] in Urine by AutomatedOrdered By: Deondre Jarrett on 10-18-2024 Mucus Auto Ql (U) Mucus [Presence] in Urine by Automated Abnormal [facility] Neutrophils Auto (Bld) [#/Vo l]Ordered By: Deondre Jarrett on 10-18-2024 Neutrophils (Bld) [#/Vol] Neutrophils [#/volume] in Blood by Automated count 1.8-7.7 [facility] Neutrophils/100 WBC Auto (Bl d)Ordered By: Deondre Jarrett on 10-18-2024 Neutrophils/100 WBC (Bld) Automated neutrophil % . [facility] Nitrite Test strip Ql (U)Ord ered By: Deondre Jarrett on 10-18-2024 Nitrite Ql (U) Nitrite [Presence] i n Urine by Test strip Negative [facility] No Panel InformationOrdered By: Deondre Jarrett on 10-18-2024 Estimated GFR (CKD-EPI) > 60.0 mL/Min [facility] Creatinine Clearance (Chem N/A [facility] Nucleated erythrocytes [Pres ence] in Blood by Automated countOrdered By: Deondre Jarrett on 10-18-2024 Nucleated RBC Auto Ql (Bld) Nucleated erythrocytes [Presence] in Blood by Automated count 0-0.5 [facility] Platelet mean volume Auto (B ld) [Entitic vol]Ordered By: Deondre Jarrett on 10-18-2024 Platelet mean volume (Bld) [Entitic vol] Platelet mean volume [Entitic volume] in Blood by Automated count High 6.3-10.7 [facility] Platelets Auto (Bld) [#/Vol] Ordered By: Deondre Jarrett on 10-18-2024 Platelets (Bld) [#/Vol] Platelets [#/volume] in Blood by Automated count 150-450 [facility] Potassium [Moles/volume] in Serum or PlasmaOrdered By: Deondre Jarrett on 10-18-2024 Potassium [Moles/Vol] Potassium [Moles/v olume] in Serum or Plasma 3.5-5.1 [facility] Protein Test strip (U) [Mass /Vol]Ordered By: Deondre Jarrett on 10-18-2024 Protein (U) [Mass/Vol] Protein [Mass/vol ume] in Urine by Test strip Negative [facility] Protein [Mass/volume] in Ser um or PlasmaOrdered By: Deondre Jarrett on 10-18-2024 Protein [Mass/Vol] Protein [Mass/volume ] in Serum or Plasma 6.4-8.9 [facility] RBC Auto (Bld) [#/Vol]Ordere d By: Deondre Jarrett on 10-18-2024 RBC (Bld) [#/Vol] Erythrocytes [#/volu me] in Blood by Automated count High 3.60-5.00 [facility] Serum homogeneous pattern an tinuclear antibody (SAPNA) titerOrdered By: Deondre Jarrett on 10-18-2024 Homogenous nuclear Ab pattern (S) [Titer] Serum homogeneous pattern antinuclear antibody (SAPNA) titer [facility] Serum nuclear antibody titer Ordered By: Deondre Jarrett on 10-18-2024 Nuclear Ab (S) [Titer] Serum nuclear ant ibody titer . [facility] Comment on above: Negative <1:80 Stefano arriaga 1:80 Positive >1:80ICAP nomenclature: AC-0For more information about Hep-2 cell patterns useANApatterns.org, the official website for theInternational Consensus on Antinuclear Antibody (SAPNA)Patterns (ICAP).Performed at: [address] [id number] Director: Cliff Orlando PhD, Phone: [phone] Serum or plasma albumin/glob ulin mass ratioOrdered By: Deondre Jarrett on 10-18-2024 Albumin/Globulin [Mass ratio] Serum or plasma albumin/globulin mass ratio [facility] Serum or plasma anion gap de terminationOrdered By: Deondre Jarrett on 10-18-2024 Anion gap [Moles/Vol] Serum or plasma an ion gap determination 6.0-15.0 [facility] Serum or plasma complement C 3 measurement (mass/volume)Ordered By: Deondre Jarrett on 10-18-2024 Complement C3 [Mass/Vol] Serum or plasma complement C3 measurement (mass/volume) 82-167 [facility] Comment on above: Performed at: [employer] [address] [id number] Director: Cliff Orlando PhD, Phone: [phone] Serum or plasma complement C 4 measurement (mass/volume)Ordered By: Deondre Jarrett on 10-18-2024 Complement C4 [Mass/Vol] Serum or plasma complement C4 measurement (mass/volume) 12-38 [facility] Sodium [Moles/volume] in Ser um or PlasmaOrdered By: Deondre Jarrett on 10-18-2024 Sodium [Moles/Vol] Sodium [Moles/volume ] in Serum or Plasma Low 136-145 [facility] Specific gravity Test strip (U) [Rel density]Ordered By: Deondre Jarrett on 10-18-2024 Specific gravity (U) [Rel density] Specific gravity of Urine by Test strip 1.001-1.03 0 [facility] Total hemolytic complement C H50 assayOrdered By: Deondre Jarrett on 10-18-2024 Total Complement (CH50) >60 U/mL >41 [facility] Comment on above: Age Male Female 1 - 30 days Not Estab. Not Estab. 31 days - 6 months >32 >20 7 months - 17 years >39 >39 >17 years >41 >41 NOTE: The adult ( >17 years ) reference interval range is used to flag abnormals on this report. If the patient is 17 years old or younger, use the table above to determine out of range values.Performed at: [facility] [place], [place] [id number] Director: Cliff Orlando PhD, Phone: [phone] Urea nitrogen [Mass/volume] in Serum or PlasmaOrdered By: Deondre Jarrett on 10-18-2024 Urea nitrogen [Mass/Vol] Urea nitrogen [Mass/volume] in Serum or Plasma 04-15 [facility] Urobilinogen Test strip (U) [Mass/Vol]Ordered By: Deondre Jarrett on 10-18-2024 Urobilinogen (U) [Mass/Vol] Urobilinogen [Mass/volume] in Urine by Test strip Normal [facility] WBC Auto (Bld) [#/Vol]Ordere d By: Deondre Jarrett on 10-18-2024 WBC (Bld) [#/Vol] Leukocytes [#/volume ] in Blood by Automated count 3.8-11.6 [facility] X-ray reportOrdered By: Srini Cross on 10-18-2024 Study report [facility] [place] [address] [place] [address] XRay Report Signed Patient: Jennifer Rothman MR#: [id number] : 1960 Acct:[id number] Age/Sex: 63 / F ADM Date: 5 Loc: ICXD Room: Type: [facility] Attending Dr: Deondre Jarrett MD Copies to: Deondre Jarrett MD~ Ordering Provider: Deondre Jarrett MD Date of Service: 10/18/24 XR/XR hand BI 2V: HAND PAIN 2 views both hand plain film COMPARISON: None HISTORY: Bilateral hand pain. ACUTE FINDINGS: None DEGENERATIVE CHANGE: Mild interphalangeal degenerative changes. SOFT TISSUE FINDINGS: Unremarkable JOINT EFFUSION: None POSTOP CHANGES: None BONY MINERALIZATION: Adequate XR/XR hand BI 2V IMPRESSION: Mild bilateral hand degeneration Impression dictated by: Aron Cross M.D.10/18/2024 5:32 PM Dictation Location: [place] [address] Transcribed By: [facility] 10/18/241731 Dictated By: Aron Cross DO 10/18/241730 Signed By: 10/18/24 173 [facility] XR hand BI 2Von 10-18-2024 XR hand BI 2V [facility] [place] [address] [place] [address] XRay Report Signed Patient: Jennifer Rothman MR#: [id number] 5 : 1960 Acct:[id number] Age/Sex: 63 / F ADM Date: 10/18/24 Loc: ICXD Room: Type: [facility] Attending Dr: Deonder Jarrett MD Copies to: Deondre Jarrett MD Ordering Provider: Deondre Jarrett MD Date of Service: 10/18/24 XR/XR hand BI 2V: HAND PAIN 2 views both hand plain film COMPARISON: None HISTORY: Bilateral hand pain. ACUTE FINDINGS: None DEGENERATIVE CHANGE: Mild interphalangeal degenerative changes. SOFT TISSUE FINDINGS: Unremarkable JOINT EFFUSION: None POSTOP CHANGES: None BONY MINERALIZATION: Adequate XR/XR hand BI 2V IMPRESSION: Mild bilateral hand degeneration Impression dictated by: Aron Cross M.D.10/18/2024 5:32 PM Dictation Location: [facility] Transcribed By: [facility] 10/18/241731 Dictated By: Aron Cross DO 10/18/241730 Signed By: 10/18/241731 Normal [facility] pH Test strip (U)Ordered By: Deondre Jarrett on 10-18-2024 pH (U) pH of Urine by Test strip 5.0-9.0 [facility] SAPNA Antinuclear Antibodieson 09-14-2024 Antinuclear Abs, IFA Positive Critically abnormal . [facility] Comment on above: Result Comment: Nega tive <1:80 Borderline 1:80 Positive >1:80 Performed By: #### R DEVORAH PANEL UPP., BIOFIRECOVNOTDE #### [address] Note 1 Comment Normal . [facility] Comment on above: Result Comment: Adriane tristen Potential Disease Association Homogeneous Systemic Lupus Erythematosus, Drug Induced Systemic Lupus Erythematosus, Chronic Autoimmune hepatitis, Juvenile Idiopathic Arthritis Speckled Sjogren Syndrome, Systemic Lupus Erythematosus, Subacute Cutaneous Lupus, Lupus, Congenital Heart Block, Mixed Connective Tissue Disease, Scleroderma-diffuse, Scleroderma-Autoimmune Myositis Overlap Syndrome, Systemic Lupus Pszjxmzoljwpx-Umclqpbpoaa-Zdcuktcwwl Myositis Overlap Syndrome, Systemic Autoimmune Rheumatic Disease, Undifferentiated Connective Tissue Disease Nucleolar Systemic Sclerosis, Scleroderma-Autoimmune Myositis Overlap Syndrome, Sjogren Syndrome, Raynaud phenomenon, Pulmonary Arterial Hypertension, Systemic Autoimmune Rheumatic Disease, Cancer Centromere Scleroderma-CREST, Limited Cutaneous SSc, Raynaud's Phenomenon, Primary Biliary Cholangitis Nuclear Dot Primary Biliary Cholangitis Nuclear Primary Biliary Cholangitis, Autoimmune Membrane Hepatitis/Liver disease, Systemic Autoimmune Rheumatic Disease, Autoimmune Cytopenias, Linear Scleroderma, Antiphospholipid Syndrome Performed at: [facility] [id number] Inspector [employer]: Cliff Orlando PhD, Phone: [phone] Performed By: #### R DEVORAH PANEL UPP., BIOFIRECOVNOTDE #### [facility] [address] Speckled Pattern 1 High . [facility] Comment on above: Result Comment: ICAP nomenclature: AC-2,4,5,29 Performed By: #### R DEVORAH PANEL UPP., BIOFIRECOVNOTDE #### [facility] [address] [place] [address] [place] Basophils Auto (Bld) [#/Vol] Ordered By: Isidro Mast on 09-14-2024 Basophils (Bld) [#/Vol] Automated basophil count 0.0-0.2 [facility] Basophils/100 WBC Auto (Bld) Ordered By: Isidro Mast on 09-14-2024 Basophils/100 WBC (Bld) Automated basophil % . [facility] C reactive protein [Mass/vol ume] in Serum or PlasmaOrdered By: Isidro Mast on 09-14-2024 CRP [Mass/Vol] C reactive protein [Mass/volume] in Serum or Plasma 0.0-0.5 [facility] C-Reactive Proteinon 024 CRP [Mass/Vol] mg/L Normal 0.0-0.5 [facility] Comment on above: Result Comment: PERF ORMED BY: [facility] [address] [place] [address] PATHOLOGIST MANAGER [employer] PAUL HUDDLESTON M.D. Performed By: #### R DEVORAH PANEL UPP., BIOFIRECOVNOTDE #### [facility] [address] Complete Blood Count Auto Di ffon 09-14-2024 Basophils (Bld) [#/Vol] 0.0 10*3/uL Normal 0.0-0.2 [facility] Comment on above: Performed By: #### R DEVORAH PANEL UPP., BIOFIRECOVNOTDE #### [address] Basophils/100 WBC (Bld) 1.1 % Normal . [facility] Comment on above: Performed By: #### R DEVORAH PANEL UPP., BIOFIRECOVNOTDE #### [address] [address] Eosinophils (Bld) [#/Vol] 0.3 10*3/uL Normal 0.0-0.45 [facility] Comment on above: Performed By: #### R DEVORAH PANEL UPP., BIOFIRECOVNOTDE #### [address] Eosinophils/100 WBC (Bld) 7.1 % Normal . [facility] Comment on above: Performed By: #### R DEVORAH PANEL UPP., BIOFIRECOVNOTDE #### [address] Erythrocyte distribution width (RBC) [Ratio] 13.7 % Normal 11.9-15.3 [facility] Comment on above: Performed By: #### R DEVORAH PANEL UPP., BIOFIRECOVNOTDE #### [address] Hematocrit (Bld) [Volume fraction] 41.1 % Normal 34.0-46.4 [facility] Comment on above: Performed By: #### R DEVORAH PANEL UPP., BIOFIRECOVNOTDE #### [address] Hemoglobin (Bld) [Mass/Vol] 13.2 g/dL Normal 11.8-15.4 [facility] Comment on above: Performed By: #### R DEVORAH PANEL UPP., BIOFIRECOVNOTDE #### [address] Lymphocytes (Bld) [#/Vol] 1.1 10*3/uL Normal 1.00-4.8 [facility] Comment on above: Performed By: #### R DEVORAH PANEL UPP., BIOFIRECOVNOTDE #### [address] Lymphocytes/100 WBC (Bld) 26.1 % Normal . [facility] Comment on above: Performed By: #### R DEVORAH PANEL UPP., BIOFIRECOVNOTDE #### [address] MCH (RBC) [Entitic mass] 27.9 pg Normal 24.7-34.3 [facility] Comment on above: Performed By: #### R DEVORAH PANEL UPP., BIOFIRECOVNOTDE #### [address] MCV (RBC) [Entitic vol] 86.7 fL Normal 80-100 [facility] Comment on above: Performed By: #### R DEVORAH PANEL UPP., BIOFIRECOVNOTDE #### [address] Mean Corpuscular HGB Conc 32.1 g/dL Normal 32.0-35.0 [facility] Comment on above: Performed By: #### R DEVORAH PANEL UPP., BIOFIRECOVNOTDE #### [address] Monocytes (Bld) [#/Vol] 0.3 10*3/uL Normal 0.0-0.8 [facility] Comment on above: Performed By: #### R DEVORAH PANEL UPP., BIOFIRECOVNOTDE #### [address] Monocytes/100 WBC (Bld) 7.0 % Normal . [facility] Comment on above: Performed By: #### R DEVORAH PANEL UPP., BIOFIRECOVNOTDE #### [address] Neutrophils (Bld) [#/Vol] 2.5 10*3/uL Normal 1.8-7.7 [facility] Comment on above: Performed By: #### R DEVORAH PANEL UPP., BIOFIRECOVNOTDE #### [address] Neutrophils/100 WBC (Bld) 58.7 % Normal . [facility] Comment on above: Performed By: #### R DEVORAH PANEL UPP., BIOFIRECOVNOTDE #### [address] NRBC% 0.2 /100{WBC} Normal 0-0.5 The [facility] Comment on above: Performed By: #### R DEVORAH PANEL UPP., BIOFIRECOVNOTDE #### [address] Platelet mean volume (Bld) [Entitic vol] 9.6 fL Normal 6.3-10.7 The [facility] Comment on above: Performed By: #### R DEVORAH PANEL UPP., BIOFIRECOVNOTDE #### [address] Platelets (Bld) [#/Vol] 183 10*3/uL Normal 150-450 [facility] Comment on above: Performed By: #### R DEVORAH PANEL UPP., BIOFIRECOVNOTDE #### [address] RBC (Bld) [#/Vol] 4.74 10*6/uL Normal 3.60-5.00 The [facility] Comment on above: Performed By: #### R DEVORAH PANEL UPP., BIOFIRECOVNOTDE #### [address] WBC (Bld) [#/Vol] 4.3 10*3/uL Normal 3.8-11.6 The [facility] Comment on above: Performed By: #### R DEVORAH PANEL UPP., BIOFIRECOVNOTDE #### [address] Cyclic Citrulliated Pep Abon 09-14-2024 Cyclic Citrulliated Pep Ab 0 Normal 0-19 [facility] Comment on above: Result Comment: Nega tive <20 Weak positive 20 - 39 Moderate positive 40 - 59 Strong positive >59 Performed at: [facility] [id number] [employer]ing: Cliff Orlando PhD, Phone: [phone] PERFORMED BY: [place] [address] PATHOLOGIST MANAGER [employer] PAUL HUDDLESTON M.D. Performed By: #### R DEVORAH PANEL UPP., BIOFIRECOVNOTDE #### [facility] [address] [place] [address] Eosinophils Auto (Bld) [#/Vo l]Ordered By: Isidro Mast on 09-14-2024 Eosinophils (Bld) [#/Vol] Automated eosinophil count 0.0-0.45 [facility] Eosinophils/100 WBC Auto (Bl d)Ordered By: Isidro Mast on 09-14-2024 Eosinophils/100 WBC (Bld) Automated eosinophil % . [facility] Erythrocyte Sedimentation Ra talia 09-14-2024 ESR (Bld) [Velocity] 13 mm/h Normal 0-29 [facility] Comment on above: Result Comment: PERF ORMED BY: [place] [address] PATHOLOGIST MANAGER [employer] PAUL HUDDLESTON M.D. Performed By: #### R DEVORAH PANEL UPP., BIOFIRECOVNOTDE #### [address] Erythrocyte distribution wid th Auto (RBC) [Ratio]Ordered By: Isidro Mast on 09-14-2024 Erythrocyte distribution width (RBC) [Ratio] Erythrocyte distribution width [Ratio] by Automated count 11.9-15.3 [facility] Erythrocyte sedimentation ra te by Photometric methodOrdered By: Isidro Mast on 09-14-2024 ESR Photometric method (Bld) [Velocity] Erythrocyte sedimentation rate by Photometric method 0-29 [facility] Hematocrit Auto (Bld) [Volum e fraction]Ordered By: Isidro Mast on 09-14-2024 Hematocrit (Bld) [Volume fraction] Hematocrit [Volume Fraction] of Blood by Automated count 34.0-46.4 [facility] Hemoglobin [Mass/volume] in BloodOrdered By: Isidro Mast on 09-14-2024 Hemoglobin (Bld) [Mass/Vol] Hemoglobin [Mass/volume] in Blood 11.8-15.4 [facility] Leukocytes [#/volume] correc janice for nucleated erythrocytes in Blood by Automated counOrdered By: Isidro Mast on 09-14-2024 WBC corrected for nucl RBC Auto (Bld) [#/Vol] Leukocytes [#/volume] corrected for nucleated erythrocytes in Blood by Automated coun 3.8-11.6 [facility] Lymphocytes Auto (Bld) [#/Vo l]Ordered By: Isidro Mast on 09-14-2024 Lymphocytes (Bld) [#/Vol] Lymphocytes [#/volume] in Blood by Automated count 1.00-4.8 [facility] Lymphocytes/100 WBC Auto (Bl d)Ordered By: Isidro Mast on 09-14-2024 Lymphocytes/100 WBC (Bld) Lymphocytes/100 leukocytes in Blood by Automated count . [facility] MCH Auto (RBC) [Entitic mass ]Ordered By: Isidro Mast on 09-14-2024 MCH (RBC) [Entitic mass] MCH [Entitic mass] by Automated count 24.7-34.3 [facility] MCHC Auto (RBC) [Mass/Vol]Or dered By: Isidro Mast on 09-14-2024 MCHC (RBC) [Mass/Vol] MCHC [Mass/volume] by Automated count 32.0-35.0 [facility] MCV Auto (RBC) [Entitic vol] Ordered By: Isidro Mast on 09-14-2024 MCV (RBC) [Entitic vol] MCV [Entitic volume] by Automated count 80-100 [facility] Monocytes Auto (Bld) [#/Vol] Ordered By: Isidro Mast on 09-14-2024 Monocytes (Bld) [#/Vol] Automated blood monocyte count 0.0-0.8 [facility] Monocytes/100 WBC Auto (Bld) Ordered By: Isidro Mast on 09-14-2024 Monocytes/100 WBC (Bld) Automated monocyte % . [facility] Neutrophils Auto (Bld) [#/Vo l]Ordered By: Isidro Gonzalez on 09-14-2024 Neutrophils (Bld) [#/Vol] Neutrophils [#/volume] in Blood by Automated count 1.8-7.7 [facility] Neutrophils/100 WBC Auto (Bl d)Ordered By: Isidro Gonzalez on 09-14-2024 Neutrophils/100 WBC (Bld) Automated neutrophil % . [facility] No Panel InformationOrdered By: Isidro Gonzalez on 09-14-2024 Anti-Nuclear Antibody Comment 2 Comment . [facility] Comment on above: Pattern Potential Di sease Association Homogeneous Systemic Lupus Erythematosus, Drug Induced Systemic Lupus Erythematosus, Chronic Autoimmune hepatitis, Juvenile Idiopathic Arthritis Speckled Sjogren Syndrome, Systemic Lupus Erythematosus, Subacute Cutaneous Lupus, Lupus, Congenital Heart Block, Mixed Connective Tissue Disease, Scleroderma-diffuse, Scleroderma-Autoimmune Myositis Overlap Syndrome, Systemic Lupus Sqyqxydvqvssl-Dnpqgpphrpu-Ukbmpvsebj Myositis Overlap Syndrome, Systemic Autoimmune Rheumatic Disease, Undifferentiated Connective Tissue Disease Nucleolar Systemic Sclerosis, Scleroderma-Autoimmune Myositis Overlap Syndrome, Sjogren Syndrome, Raynaud phenomenon, Pulmonary Arterial Hypertension, Systemic Autoimmune Rheumatic Disease, Cancer Centromere Scleroderma-CREST, Limited Cutaneous SSc, Raynaud's Phenomenon, Primary Biliary Cholangitis Nuclear Dot Primary Biliary Cholangitis Nuclear Primary Biliary Cholangitis, AutoimmuneMembrane Hepatitis/Liver disease, Systemic Autoimmune Rheumatic Disease, Autoimmune Cytopenias, Linear Scleroderma, Antiphospholipid Syndrome Performed at: [facility] [address] [id number] Director: Cliff Orlando PhD, Phone: [phone] Nucleated erythrocytes [Pres ence] in Blood by Automated countOrdered By: Isidro Gonzalez on 09-14-2024 Nucleated RBC Auto Ql (Bld) Nucleated erythrocytes [Presence] in Blood by Automated count 0-0.5 [facility] Platelet mean volume Auto (B ld) [Entitic vol]Ordered By: Isidro Gonzalez on 09-14-2024 Platelet mean volume (Bld) [Entitic vol] Platelet mean volume [Entitic volume] in Blood by Automated count 6.3-10.7 [facility] Platelets Auto (Bld) [#/Vol] Ordered By: Isidro Gonzalez on 09-14-2024 Platelets (Bld) [#/Vol] Platelets [#/volume] in Blood by Automated count 150-450 [facility] RBC Auto (Bld) [#/Vol]Ordere d By: Isidro Gonzalez on 09-14-2024 RBC (Bld) [#/Vol] Erythrocytes [#/volu me] in Blood by Automated count 3.60-5.00 [facility] Rheumatoid Factoron 09-14-20 Rheumatoid Factor 25.5 [IU]/mL High <14.0 The [facility] Comment on above: Result Comment: Perf ormed at: [facility] [id number] Inspector [employer]: Cliff Orlando PhD, Phone: [phone] Performed By: #### R DEVORAH PANEL UPP., BIOFIRECOVNOTDE #### [address] Serum homogeneous pattern an tinuclear antibody (SAPNA) titerOrdered By: Isidro Mast on 09-14-2024 Homogenous nuclear Ab pattern (S) [Titer] Serum homogeneous pattern antinuclear antibody (SAPNA) titer [facility] Serum nuclear antibody titer Ordered By: Isidro Mast on 09-14-2024 Nuclear Ab (S) [Titer] Serum nuclear ant ibody titer Abnormal . [facility] Comment on above: Negative <1:80 Borde rline 1:80 Positive >1:80 Serum or plasma cyclic adeno sine monophosphate measurement (moles/volume)Ordered By: Isidro Mast on 09-14-2024 Adenosine monophosphate.cyclic [Moles/Vol] Serum or plasma cyclic adenosine monophosphate measurement (moles/volume) 0-19 [facility] Comment on above: Negative <20 Weak po sitive 20 - 39 Moderate positive 40 - 59 Strong positive >59Performed at: [facility] [address] [id number] Director: Cliff Orlando PhD, Phone: [phone] Serum or plasma rheumatoid f actor measurement (units/volume)Ordered By: Isidro Mast on 09-14-2024 Rheumatoid factor Qn Serum or plasma rheumatoid factor measurement (units/volume) High <14.0 [facility] Comment on above: Performed at: [facility] [address] [id number] Director: Cliff Orlando PhD, Phone: [phone] Serum speckled pattern antin uclear antibody (SAPNA) titerOrdered By: Isidro Mast on 09-14-2024 Speckled nuclear Ab pattern (S) [Titer] Serum speckled pattern antinuclear antibody (SAPNA) titer High . [facility] Comment on above: ICAP nomenclature: A C-2,4,5,29 WBC Auto (Bld) [#/Vol]Ordere d By: Isidro Gonzalez on 09-14-2024 WBC (Bld) [#/Vol] Leukocytes [#/volume ] in Blood by Automated count 3.8-11.6 [facility] HbA1c HPLC (Bld) [Mass fract ion]on 08-09-2024 HbA1c (Bld) [Mass fraction] Hemoglobin A1c/Hemoglobin.total in Blood by HPLC [facility] Ambulatory Visit Summaryon 1 10-04-2023 Ambulatory Visit Summary Ambulatory Visit Summary JENNIFER ROTHMAN :1960 Visit Date:08/04/2024 Ambulatory Visit Instructions Your Diagnosis Kidney stone Your Care Team Attending Physician - Janelle Lozano Primary Care Physician - ISIDRO GONZALEZ DO This Is Your Medications List ascorbic acid (Vitamin C 1000 mg oral tablet) aspirin (aspirin 81 mg oral tablet) atogepant (Qulipta 60 mg oral tablet) cholecalciferol (Vitamin D3) clopidogrel (clopidogrel 75 mg Tab) flax (Flax Seed Oil oral capsule) levothyroxine (levothyroxine 75 mcg (0.075 mg) Tab) lisinopril (lisinopril 10 mg Tab) magnesium oxide (magnesium oxide 500 mg oral tablet) multivitamin (B-Complex SR) niacin (niacin 500 mg ER Tab) pregabalin semaglutide (Ozempic) Procedures Performed Cystoscope (12/15/2021), Carpal tunnel release (09/07/2018), Carpal tunnel release (08/24/2018), arthoscopy of shoulder, Caesarean section, Cholecystectomy, Operation on the ear, Rotator cuff repair. Discharge Vitals Temperature (Temporal Artery) 36.7 ???C Heart Rate (Peripheral) 78 Respiratory Rate 16 Blood Pressure 137/81 Height 162 cm Height 64 in Weight 106 kg Weight 233.69 lb BMI 40.39 Medications What How Much When Instructions Unchanged ascorbic acid (Vitamin C 1000 mg oral tablet) 1 Tablets By Mouth Every day Unchanged aspirin (aspirin 81 mg oral tablet) 1 Tablets By Mouth Every day Unchanged atogepant (Qulipta 60 mg oral tablet) 1 Tablets By Mouth Every day Unchanged cholecalciferol (Vitamin D3) Unchanged clopidogrel (clopidogrel 75 mg Tab) 1 Tablets By Mouth Every day Unchanged flax (Flax Seed Oil oral capsule) 1,300 Milligram By Mouth 2 times a day Unchanged levothyroxine (levothyroxine 75 mcg (0.075 mg) Tab) By Mouth Every day Unchanged lisinopril (lisinopril 10 mg Tab) 1 Tablets By Mouth Every day Unchanged magnesium oxide (magnesium oxide 500 mg oral tablet) 1 Tablets By Mouth Every day Unchanged multivitamin (B-Complex SR) By Mouth Every day Unchanged niacin (niacin 500 mg ER Tab) 2 Tablets By Mouth 2 times a day Unchanged pregabalin 100 Milligram By Mouth Unchanged semaglutide (Ozempic) 2 Milligram Subcutaneous Every week Allergies Tape (Blisters) Problems Ongoing - Any problem that you are currently receiving treatment for. Arthritis Hyperlipidemia Hypertension Kidney stone Type 2 diabetes mellitus Patient Survey You may receive a survey via text or e-mail asking about your office visit. Please share your experience with us by completing your survey. We appreciate your feedback and thank you for choosing us for your care. Normal [facility] Reminderson 08-04-2024 Reminders Reminders From: Marya Adams To: EU - Administrative; Sent: 08/04/2024 12:22:46 EST Show up: 06/04/2025 13:18:00 EDT Subject: 1 YR FU Due Date/Time: 08/04/2025 12:22:00 EST Reminder/Recall PATIENT SEEN ON 08/04/2024. PATIENT NEEDS A 1 YEAR FU W/ A KUB AND CHRISTIANE W/ AG IN [place] ON 08/04/2025. Normal [facility] Urology Office/Clinic Noteon 08-04-2024 Urology Office/Clinic Note Urology Office/Clinic Note Chief Complaint 1 year with KUB/CHRISTIANE HPI Staff 1 year follow up w/CHRISTIANE & KUB Previous DX: kidney stone. Dysuria: denies Incomplete bladder emptying: denies Hematuria: denies Frequency: denies Urgency: yes Nocturia: 2 x a night Stream: denies hesitancy, has steady stream Leaking: denies Post void dripping: denies Wearing pads/ Depends: denies Urge incontinence: denies Stress incontinence: when sneezing Incontinence without Sensory Awareness: denies Abdominal pain: denies Flank pain: denies Sexual complaints: _ History of Present Illness Staff HPI reviewed and agree. Review of Systems PHQ Score Initial Depression Screen Score: 1 SCORE no fever, chills, malaise, myalgia. no rash/lesions. no chest pain, palpitations, or SOB. no abdominal pain, nausea, vomiting. no unilateral calf swelling, redness, pain Physical Exam Vitals & Measurements T: 36.7 ???C(Temporal Artery) HR: 78(Peripheral) RR: 16 BP: 137/81 HT: 64 in HT: 162 cm WT: 106 kg WT: 233.69 lb BMI: 40.39 General: nontoxic, well-nourished, appears stated age Mouth: moist mucosa Lungs: normal respiratory effort Cardio: regular rate, good distal perfusion Abdomen: nondistended, no suprapubic distention or tenderness, no CVA tenderness Neurologic: Grossly normal Skin: No rashes or suspicious lesions Assessment/Plan KML pt 1. Kidney stone (N20.0: Calculus of kidney) S/p Lt. ureteroscopy with stone basket extraction 12/15/21 for 4mm left distal ureteral stone with mild hydronephrosis CT AP w/o con done 05/02/22 - shows punctate left nephrolithiasis, no hydro. First stone event. CHRISTIANE 07/28/23 - 3mm Rt nonobstructing stone and and a 4mm Lt nonobstructing stone KUB 07/28/23 - no stones present 06/07/24 CT abd/pelvis w/ con - no enhancing renal mass or hydronephrosis 08/03/24 KUB - no visible stones 08/03/24 CHRISTIANE - 2mm echogenic focus L kidney, no hydronephrosis UA today small leuks only Pt denies sxs of stone passage or pain over the last year. Pt does report R flank/back pain intermittently. Advised pt typically small stones in the kidney do not cause pain. Advised pt if pain is associated with inreased activity and/or resolves with heat/ice or NSAIDs it is most likely not associated with stone. Discussed imaging results. Will continue to monitor. Pt states that she has been trying to increase her fluid intake, but does not drink enough water. Advised pt to try her best to increase her fluid intake to prevent future stones. Discussed met w/up in the future if pt would like to proceed, declined at this time. Pt states that she would like to work on her water intake before doing a metabolic workup to prevent more stones or adding any meds. -Follow up in 1 yr w/CHRISTIANE and KUB. All questions/concerns were discussed. Pt to call the office if she encounters any issues prior. Pt acknowledges understanding. -Increase fluid intake to 90 oz a day; preferably water, clear pop, and sugar free lemonade. -Increase citrus intake. -Dietary modifications. Ordered: E&M of Est. Patient Moderate 30-39 Min [id number] Urnls Dip Stick Auto w/o Microscopy POC 11916 2. Stress incontinence (N39.3: Stress incontinence (female) (male)) BBS (7)5 Pt reports increased stress incontinence over the last year. Pt reports symptoms are not bothersome enough to warrant treatment at this time. -Timed voids, avoid bladder irritants -Kegels -home PFPT Ordered: E&M of Est. Patient Moderate 30-39 Min [id number] Follow-up With When Contact Information Estevan REYES, Janelle Nicolas, URL Within 1 year Additional Instructions: KUB/CHRISTIANE Patient Education Kidney Stones, [id number] Problem List/Past Medical History Ongoing Arthritis Hyperlipidemia Hypertension Kidney stone Type 2 diabetes mellitus Historical No qualifying data Procedure/Surgical History Cystoscope (12/15/2021), Carpal tunnel release (09/07/2018), Carpal tunnel release (08/24/2018), arthoscopy of shoulder, Caesarean section, Cholecystectomy, Operation on the ear, Rotator cuff repair. Medications aspirin 81 mg oral tablet, 81 mg= 1 tab(s), Oral, Daily B-Complex SR, Oral, Daily clopidogrel 75 mg Tab, 75 mg= 1 tab(s), Oral, Daily, Pre-arrival medication Flax Seed Oil oral capsule, 1300 mg, Oral, BID levothyroxine 75 mcg (0.075 mg) Tab, Oral, Daily lisinopril 10 mg Tab, 10 mg= 1 tab(s), Oral, Daily magnesium oxide 500 mg oral tablet, 500 mg= 1 tab(s), Oral, Daily niacin 500 mg ER Tab, 1000 mg= 2 tab(s), Oral, BID Ozempic, 2 mg, SubCutaneous, qWeek pregabalin, 100 mg, Oral Qulipta 60 mg oral tablet, 60 mg= 1 tab(s), Oral, Daily Vitamin C 1000 mg oral tablet, 1000 mg= 1 tab(s), Oral, Daily Vitamin D3 Allergies Tape (Blisters) Social History Alcohol - Denies Alcohol Use, 07/13/2018 Never., 08/04/2024 Substance Abuse - Denies Substance Abuse, 07/13/2018 Never., 08/04/2024 Tobacco - Denies Tobacco Use, 07/13/2018 Never (less than 10 (more content not included)... Normal [facility] Comment on above: Result Comment: Elec tronically Signed By: Estevan REYES, Janelle Nicolas\.br\Date and Time Signed: 08/04/24 12:38 EST US renal BIon 08-03-2024 US renal BI [facility] [place] [address] Ultrasound Report Signed Patient: Jennifer Rothman MR#: [id number] 5 : 1960 Acct:[id number] Age/Sex: 63 / F ADM Date: 08/03/24 Loc: Room: Type: [facility] Attending Dr: Keke GORDON Ordering Provider: HEIDI Cochran Date of Service: 08/03/24 US/US renal BI: N20.0 Copies to: HEIDI Cochran Bilateral Renal Ultrasound HISTORY: History kidney stones. COMPARISON: CT abdomen pelvis on 06/07/24 RIGHT kidney measures 10.4 cm. LEFT kidney measures 9.8 cm. Hydronephrosis: None RENAL STONE: 2 mm echogenic focus of the LEFT kidney. Consider small nonobstructing renal calculus. RENAL LESIONS: No renal lesion identified. URINARY BLADDER: Bilateral ureteral jets identified. The minimal post for residual urinary bladder. REPRODUCTIVE STRUCTURES Not assessed US/US renal BI IMPRESSION : No hydronephrosis. Punctate LEFT nephrolithiasis. Impression dictated by: Aron Cross M.D.08/03/2024 3:59 PM Dictation Location: [address]: Quiana Menezes Transcribed By: FELECIA 08/03/24 1559 Dictated By: Aron Cross DO 08/03/24 1556 Signed By: 08/03/24 1559 Normal [facility] X-ray reportOrdered By: Srini Cross on 08-03-2024 Study report [facility] [address] [address] XRay Report Signed Patient: Jennifer Rothman MR#: [id number] : 1960 Acct:[id number] Age/Sex: 63 / F ADM Date: 4 Loc: UL Room: Type: REG CLI Attending Dr: Keke GORDON Copies to: HEIDI Cochran~ Ordering Provider: HEIDI Cochran Date of Service: 08/03/24 XR/XR abdomen 1V: N20.0 Single view of abdomen COMPARISON: 07/28/23 HISTORY: Kidney stone checkup THORAX: Lung bases unremarkable. FREE AIR: Supine position limits assessment BOWEL: No gaseous intestinal distention. STOOL: Stool overlies kidneys RENAL STONES: No significant stones present. VASCULAR CALCIFICATIONS: Present SOFT TISSUE: Unremarkable BONES: Lumbar degeneration POSTSURGICAL CHANGES: Cholecystectomy clips XR/XR abdomen 1V IMPRESSION: No visible stones Impression dictated by: Aron Cross M.D.08/03/2024 4:00 PM Dictation Location: [facility] Transcribed By: FELECIA 08/03/24 1600 Dictated By: Aron Cross DO 08/03/24 1559 Signed By: 08/03/24 1600 [facility] XR abdomen 1Von 08-03-2024 XR abdomen 1V [facility] [address] [address] XRay Report Signed Patient: Jennifer Rothman MR#: [id number] 5 : 1960 Acct:[id number] Age/Sex: 63 / F ADM Date: 08/03/24 Loc: UL Room: Type: REG CLI Attending Dr: Keke GORDON Copies to: HEIDI Cochran Ordering Provider: HEIDI Cochran Date of Service: 08/03/24 XR/XR abdomen 1V: N20.0 Single view of abdomen COMPARISON: 07/28/23 HISTORY: Kidney stone checkup THORAX: Lung bases unremarkable. FREE AIR: Supine position limits assessment BOWEL: No gaseous intestinal distention. STOOL: Stool overlies kidneys RENAL STONES: No significant stones present. VASCULAR CALCIFICATIONS: Present SOFT TISSUE: Unremarkable BONES: Lumbar degeneration POSTSURGICAL CHANGES: Cholecystectomy clips XR/XR abdomen 1V IMPRESSION: No visible stones Impression dictated by: Aron Cross M.D.08/03/2024 4:00 PM Dictation Location: [place] [address] Transcribed By: [facility] 08/03/24 1600 Dictated By: Aron Cross DO 08/03/24 1559 Signed By: 08/03/24 1600 Normal [facility] Capillary blood glucose nu urement by glucometer (mass/volume)Ordered By: Iglesia Mccray on 06-08-2024 Glucose [Mass/Vol] 118 mg/dL Normal [facility] Comment on above: Random Glucose Refer ence Range is dependent on time and content of last meal. Glucose of more than 200 mg/dL in a nonstressed, ambulatory subject supports the diagnosis of Diabetes Mellitus. Result Comment: [facility] [place][note 2] Glucose Reference Range is dependent on time and content of last meal. Glucose of more than 200 mg/dL in a nonstressed, ambulatory subject supports the diagnosis of Diabetes Mellitus. PERFORMED BY: [address] [place] [address] PATHOLOGIST MANAGER FLIGHT OPERATIONS KAMALA SIMON M.D. Performed By: #### G HOMERO #### Point of Care testing , Glucose Glucometer (BldC) [M ass/Vol]Ordered By: Iglesia Mccray on 06-08-2024 Glucose [Mass/Vol] Capillary blood gluc ose measurement by glucometer (mass/volume) [facility] Comment on above: Random Glucose Refer ence Range is dependent on time and content of last meal. Glucose of more than 200 mg/dL in a nonstressed, ambulatory subject supports the diagnosis of Diabetes Mellitus. Glucose Poct Glucometerson 0 06-08-2024 Glucose [Mass/Vol] 139 mg/dL Normal [facility] Comment on above: Result Comment: [facility] [place][note 2] Glucose Reference Range is dependent on time and content of last meal. Glucose of more than 200 mg/dL in a nonstressed, ambulatory subject supports the diagnosis of Diabetes Mellitus. PERFORMED BY: [place] [address] PATHOLOGIST MANAGER FLIGHT OPERATIONS KAMALA SIMON M.D. Performed By: #### G LULS ####Point of Care testing, Basic Metabolic Panelon 05-23 Creatinine Clr Calc Pharmacy 96.41 Normal [facility] Comment on above: Result Comment: PERF ORMED BY: [place] [address] PATHOLOGIST MANAGER FLIGHT OPERATIONS KAMALA SIMON M.D. Performed By: #### C MELISSA, BMP #### [address] GFR/1.73 sq M.predicted MDRD (S/P/Bld) [Vol rate/Area] mL/min/{1.73_m2} Normal [facility] Comment on above: Performed By: #### C HERNANNO, BMP #### [address] abdomen pelvis w conon CT abdomen pelvis w con [facility] Main [place] [address] [place] [address] CT Scan Report Signed Patient: Jennifer Rothman MR#: [id number] 5 : 1960 Acct:[id number] Age/Sex: 63 / F ADM Date: 06/06/24 Loc: Room: [address] [place] [address] Type: ADM INOo Attending Dr: Iglesia Mccray MD Copies to: Iglesia Mccray MD Ordering Provider: Iglesia Mccray MD Date of Service: 06/07/24 CT/CT abdomen pelvis w con: oral and iv contrast CT ABDOMEN AND PELVIS WITH INTRAVENOUS CONTRAST: CLINICAL HISTORY: Weakness nausea vomiting diarrhea. COMPARISON: CT abdomen and pelvis 12/24/2023 TECHNIQUE: Spiral images were obtained through the abdomen and pelvis following the administration of intravenous contrast. This CT exam was performed using one or more following dose reduction techniques: Automated exposure control, adjustment of the mA and/or kV according to patient size, or use of iterative reconstruction technique. FINDINGS: Lung Bases: [Mild bibasilar scarring.] Organs:Gallbladder has been removed. Liver Spleen pancreas and adrenal glands appear unremarkable. No enhancing renal mass or hydronephrosis. Abdominal aorta appears normal in caliber.[ GI: Stomach is grossly unremarkable. Small bowel appears nondilated. Duodenal diverticulum. Appendix is normal. No acute colonic abnormality.[ Pelvis:[Urinary bladder is grossly unremarkable. Uterus is grossly unremarkable. No adnexal mass.] Peritoneum/Retroperitoneu m:No free air, free fluid or lymphadenopathy.[ Abd wall/Bones:Abdominal wall demonstrates no acute findings. Osseous structures demonstrate degenerative change.[ CT/CT abdomen pelvis w con IMPRESSION: No acute process. Impression dictated by: Elian Herrera Jr., CaitlinODelvin06/07/2024 6:09 PM Dictation Location: [place] [address] Transcribed By: [facility] 06/07/241808 Dictated By: Elian Herrera Jr, DO 06/07/241805 Signed By: 06/07/241808 Normal [facility] Calcium [Mass/volume] in Ser um or PlasmaOrdered By: Andres Holden on 06-07-2024 Calcium [Mass/Vol] 8.3 mg/dL Low 8.6-10.3 [facility] Comment on above: Performed By: #### C DUSTIN TORRES #### [address] Calcium [Mass/Vol] Calcium [Mass/volume ] in Serum or Plasma Low 8.6-10.3 [facility] Carbon dioxide, total [Moles /volume] in Serum or PlasmaOrdered By: Andres Holden on 06-07-2024 CO2 [Moles/Vol] 25.9 mmol/L Normal 21.0-31.0 [facility] Comment on above: Performed By: #### C MELISSA, BMP #### [place] [id number] [facility] CO2 [Moles/Vol] Carbon dioxide, tota l [Moles/volume] in Serum or Plasma 21.0-31.0 [facility] Chloride [Moles/volume] in S marco antonio or PlasmaOrdered By: Andres Holden on 06-07-2024 Chloride [Moles/Vol] 108 mmol/L High 98-107 [facility] Comment on above: Performed By: #### C BCNO, BMP #### 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 Performed By: #### R DEVORAH PANEL UPP., BIOFIRECOVNOTDE #### [facility] [address] [place] [id number] [facility] Cortisol [Mass/volume] in Se rum or PlasmaOrdered By: Andres Holden on 06-07-2024 Cortisol [Mass/Vol] Random cortisol measurement [facility] Comment on above: [facility] maintenance supervisor and method:[employer] UNICEL DXI, POLYCLONAL ANTIBODY CORTISOL ASSAY.Reference range: AM 6 - 24 ug/dl PM <10 ug/dl Creatinine [Mass/volume] in Serum or PlasmaOrdered By: Andres Holden on 06-07-2024 Creatinine [Mass/Vol] 0.72 mg/dL Normal 0.60-1.20 [facility] Comment on above: Performed By: #### C BCNO, BMP #### [facility] [address] [place] [id number] [facility] Creatinine [Mass/Vol] Creatinine [Mass/v olume] in Serum or Plasma 0.60-1.20 [facility] Erythrocyte distribution wid th Auto (RBC) [Ratio]Ordered By: Andres Holden on 06-07-2024 Erythrocyte distribution width (RBC) [Ratio] Erythrocyte distribution width [Ratio] by Automated count 11.9-15.3 [facility] Erythrocyte distribution wid th [Ratio] by Automated countOrdered By: Andres Holden on 06-07-2024 Erythrocyte distribution width (RBC) [Ratio] 14.8 % Normal 11.9-15.3 [facility] Comment on above: Performed By: #### C MELISSA, DUSTIN #### [facility] [address] Erythrocytes [#/volume] in B lood by Automated countOrdered By: Andres Holden on 06-07-2024 RBC (Bld) [#/Vol] 4.33 10*6/uL Normal 3.60-5.00 [facility] Comment on above: Performed By: #### C MELISSA, DUSTIN #### [address] Folate [Mass/volume] in Seru m or PlasmaOrdered By: Andres Holden on 06-07-2024 Folate [Mass/Vol] 18.5 ng/mL >5.9 [facility] Comment on above: Folate reference ran ge: >5.9 ng/mlThe WHO technical consultation on folate and vitamin [id number] has determined that folate concentrations lessthan 4 ng/ml are considered deficient. Folate [Mass/Vol] Folate [Mass/volume] in Serum or Plasma >5.9 [facility] Comment on above: Folate reference ran ge: >5.9 ng/mlThe WHO technical consultation on folate and vitamin [id number] has determined that folate concentrations lessthan 4 ng/ml are considered deficient. Glucose Poct Glucometerson 0 06-07-2024 Commemt1 Glu2: Cleaned Meter Normal [facility] Comment on above: Result Comment: PERF ORMED BY: [place] [address] PATHOLOGIST MANAGER FLIGHT OPERATIONS KAMALA SIMON M.D. Performed By: #### R DEVORAH PANEL UPP., BIOFIRECOVNOTDE #### [address] Glucose [Mass/Vol] 134 mg/dL Normal [facility] Comment on above: Result Comment: [place] Glucose Reference Range is dependent on time and content of last meal. Glucose of more than 200 mg/dL in a nonstressed, ambulatory subject supports the diagnosis of Diabetes Mellitus. Performed By: #### R DEVORAH PANEL UPP., BIOFIRECOVNOTDE #### [facility] [address] Glucose [Mass/Vol] 119 mg/dL Normal [facility] Comment on above: Result Comment: [facility] [place][note 2] Glucose Reference Range is dependent on time and content of last meal. Glucose of more than 200 mg/dL in a nonstressed, ambulatory subject supports the diagnosis of Diabetes Mellitus. PERFORMED BY: [place] [address] PATHOLOGIST MANAGER FLIGHT OPERATIONS KAMALA SIMON M.D. Performed By: #### G LULS #### Point of Care testing , Glucose [Mass/Vol] 138 mg/dL Normal [facility] Comment on above: Result Comment: [facility] [place][note 2] Glucose Reference Range is dependent on time and content of last meal. Glucose of more than 200 mg/dL in a nonstressed, ambulatory subject supports the diagnosis of Diabetes Mellitus. PERFORMED BY: [place] [address] PATHOLOGIST MANAGER FLIGHT OPERATIONS KAMALA SIMON M.D. Performed By: #### G LULS ####Point of Care testing, Glucose [Mass/Vol] 130 mg/dL Normal [facility] Comment on above: Result Comment: [facility] [place][note 2] Glucose Reference Range is dependent on time and content of last meal. Glucose of more than 200 mg/dL in a nonstressed, ambulatory subject supports the diagnosis of Diabetes Mellitus. PERFORMED BY: [place] [address] PATHOLOGIST MANAGER FLIGHT OPERATIONS KAMALA SIMON M.D. Performed By: #### R DEVORAH PANEL UPP., BIOFIRECOVNOTDE #### [address] Glucose [Mass/volume] in Ser um or PlasmaOrdered By: Andres Holden on 06-07-2024 Glucose [Mass/Vol] 120 mg/dL High 70-100 [facility] Comment on above: ADA recommended refe rence rangeRandom Glucose Reference Range is dependent on time and content of last meal. Glucose of more than 200 mg/dL in a nonstressed, ambulatory subject supports the diagnosis of Diabetes Mellitus. Result Comment: [place] Glucose Reference Range is dependent on time and content of last meal. Glucose of more than 200 mg/dL in a nonstressed, ambulatory subject supports the diagnosis of Diabetes Mellitus. ADA recommended reference range Performed By: #### C MELISSA, DUSTIN #### [address] Glucose [Mass/Vol] Glucose [Mass/volume ] in Serum or Plasma [facility] 70-100 [facility] Comment on above: ADA recommended refe rence rangeRandom Glucose Reference Range is dependent on time and content of last meal. Glucose of more than 200 mg/dL in a nonstressed, ambulatory subject supports the diagnosis of Diabetes Mellitus. Hematocrit Auto (Bld) [Volum e fraction]Ordered By: Andres Holden on 06-07-2024 Hematocrit (Bld) [Volume fraction] Hematocrit [Volume Fraction] of Blood by Automated count 34.0-46.4 [facility] Hematocrit [Volume Fraction] of Blood by Automated countOrdered By: Andres Holden on 06-07-2024 Hematocrit (Bld) [Volume fraction] 38.2 % Normal 34.0-46.4 [facility] Comment on above: Performed By: #### C MELISSA, DUSTIN #### [address] Hemoglobin [Mass/volume] in BloodOrdered By: Andres Holden on 06-07-2024 Hemoglobin (Bld) [Mass/Vol] 12.6 g/dL Normal 11.8-15.4 [facility] Comment on above: Performed By: #### C MELISSA, DUSTIN #### [address] Hemoglobin (Bld) [Mass/Vol] Hemoglobin [Mass/volume] in Blood 11.8-15.4 [facility] Hemogram CBC Without Diffon 06-07-2024 Mean Corpuscular HGB Conc 33.1 g/dL Normal 32.0-35.0 [facility] Comment on above: Performed By: #### C MELISSA, DUSTIN #### [address] WBC (Bld) [#/Vol] 6.1 10*3/uL Normal 3.8-11.6 [facility] Comment on above: Performed By: #### C MELISSA, BMP #### [address] Leukocytes [#/volume] correc janice for nucleated erythrocytes in Blood by Automated counOrdered By: Andres Holden on 06-07-2024 WBC corrected for nucl RBC Auto (Bld) [#/Vol] 6.1 10*3/uL 3.8-11.6 [facility] WBC corrected for nucl RBC Auto (Bld) [#/Vol] Leukocytes [#/volume] corrected for nucleated erythrocytes in Blood by Automated coun 3.8-11.6 [facility] MCH Auto (RBC) [Entitic mass ]Ordered By: Andres Holden on 06-07-2024 MCH (RBC) [Entitic mass] MCH [Entitic mass] by Automated count 24.7-34.3 [facility] MCH [Entitic mass] by Automa janice countOrdered By: Andres Holden on 06-07-2024 MCH (RBC) [Entitic mass] 29.2 pg Normal 24.7-34.3 [facility] Comment on above: Performed By: #### C MELISSA, BMP #### [address] MCHC Auto (RBC) [Mass/Vol]Or dered By: Andres Holden on 06-07-2024 MCHC (RBC) [Mass/Vol] 33.1 g/dL 32.0-35.0 [facility] MCHC (RBC) [Mass/Vol] MCHC [Mass/volume] by Automated count 32.0-35.0 [facility] MCV Auto (RBC) [Entitic vol] Ordered By: Andres Holden on 06-07-2024 MCV (RBC) [Entitic vol] MCV [Entitic volume] by Automated count 80-100 [facility] MCV [Entitic volume] by Auto mated countOrdered By: Andres Holden on 06-07-2024 MCV (RBC) [Entitic vol] 88.2 fL Normal 80-100 [facility] Comment on above: Performed By: #### C MELISSA, BMP #### [facility] [address] No Panel InformationOrdered By: Iglesia Mccray on 06-07-2024 Bedside Glucose Comment Glu2: cleaned meter [facility] No Panel InformationOrdered By: Andres Holden on 06-07-2024 Estimated GFR (CKD-EPI) > 60.0 mL/Min [facility] Creatinine Clearance (Chem 96.41 [facility] Platelet mean volume Auto (B ld) [Entitic vol]Ordered By: Andres Holden on 06-07-2024 Platelet mean volume (Bld) [Entitic vol] Platelet mean volume [Entitic volume] in Blood by Automated count 6.3-10.7 [facility] Platelet mean volume [Entiti c volume] in Blood by Automated countOrdered By: Andres Holden on 06-07-2024 Platelet mean volume (Bld) [Entitic vol] 9.1 fL Normal 6.3-10.7 [facility] Comment on above: Result Comment: PERF ORMED BY: [place] [address] PATHOLOGIST MANAGER FLIGHT OPERATIONS KAMALA SIMON M.D. Performed By: #### C MELISSA, BMP #### [facility] [address] Platelets Auto (Bld) [#/Vol] Ordered By: Andres Holden on 06-07-2024 Platelets (Bld) [#/Vol] Platelets [#/volume] in Blood by Automated count 150-450 [facility] Platelets [#/volume] in Bloo d by Automated countOrdered By: Andres Holden on 06-07-2024 Platelets (Bld) [#/Vol] 190 10*3/uL Normal 150-450 [facility] Comment on above: Performed By: #### C MELISSA, DUSTIN #### [facility] [address] [place] [address] [place] Potassium [Moles/volume] in Serum or PlasmaOrdered By: Andres Holden on 06-07-2024 Potassium [Moles/Vol] 3.8 mmol/L Normal 3.5-5.1 [facility] Comment on above: Performed By: #### C MELISSA, BMP #### 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 Comment on above: Performed By: #### C MELISSA, BMP #### [address] Sodium [Moles/Vol] Sodium [Moles/volume ] in Serum or Plasma 136-145 [facility] Triiodothyronine (T3) Freeon 06-07-2024 Triiodothyronine (T3) Free 3.28 pg/mL Normal 2.50-3.90 [facility] Comment on above: Result Comment: PERF ORMED BY: [place] [address] PATHOLOGIST MANAGER FLIGHT OPERATIONS KAMALA SIMON M.D. Performed By: #### R GENARO K #### [address] Triiodothyronine (T3) Free [ Mass/volume] in Serum or PlasmaOrdered By: Andres Holden on 06-07-2024 Free T3 [Mass/Vol] 3.28 pg/mL 2.50-3.90 [facility] Free T3 [Mass/Vol] Triiodothyronine (T3 ) Free [Mass/volume] in Serum or Plasma 2.50-3.90 [facility] Urea nitrogen [Mass/volume] in Serum or PlasmaOrdered By: Andres Holden on 06-07-2024 Urea nitrogen [Mass/Vol] 6 mg/dL Low 7-25 [facility] Comment on above: Performed By: #### C BCNO, BMP #### [address] Urea nitrogen [Mass/Vol] Urea nitrogen [Mass/volume] in Serum or Plasma Low 7-25 [facility] Vit. B12/Folate Profileon Folate 18.5 ng/mL Normal >5.9 [facility] Comment on above: Result Comment: Madalyn te reference range: >5.9 ng/ml The WHO technical consultation on folate and vitamin b12 deficiencies has determined that folate concentrations less than 4 ng/ml are considered deficient. Performed By: #### R DEVORAH PANEL UPP., BIOFIRECOVNOTDE #### [address] Vitamin B12 ser/plasOrdered By: Andres Holden on 06-07-2024 Cobalamin (Vitamin B12) [Mass/Vol] 970 pg/mL High 180-914 [facility] Comment on above: Performed By: #### R DEVORAH PANEL UPP., BIOFIRECOVNOTDE #### [facility] [address] [place] [id number] [facility] Cobalamin (Vitamin B12) [Mass/Vol] Vitamin B12 ser/plas High 180-914 [facility] Vitamin D 25 Hydroxy Totalon 06-07-2024 Vitamin D 25 Hydroxy Total 45.3 ng/mL Normal 30-100 [facility] Comment on above: Result Comment: ANIL MIN D STATUS 25(OH)VITAMIN D RANGE (ng/mL) Deficient <20 Insufficient 20 to <30 Sufficient 30 to 100 Reference: Gema Veloz, Faustino SIMEON, et al. Evaluation,treatment, and prevention of vitamin D deficiency; an Endocrine Society clinical practice guideline. JCEM. 2010; 96(7):1911-. PERFORMED BY: [place] [address] PATHOLOGIST MANAGER FLIGHT OPERATIONS KAMALA SIMON M.D. Performed By: #### R DEVORAH PANEL UPP., BIOFIRECOVNOTDE #### [address] Vitamin D+Metabolites [Mass/ volume] in Serum or PlasmaOrdered By: Andres Holden on 06-07-2024 Vitamin D+Metabolites [Mass/Vol] 45.3 ng/mL 30-100 [facility] Comment on above: VITAMIN D STATUS 25( [place])VITAMIN D RANGE (ng/mL) Deficient <20 Insufficient 20 to <30Sufficient 30 to 100Reference: eGma Veloz, Faustino SIMEON, et al. Evaluation,treatment, and prevention of vitamin D deficiency; an Endocrine Society clinical practice guideline. JCEM. 2010; 96(7):1911-. Vitamin D+Metabolites [Mass/Vol] Vitamin D+Metabolites [Mass/volume] in Serum or Plasma 30-100 [facility] Comment on above: VITAMIN D STATUS 25( [place])VITAMIN D RANGE (ng/mL) Deficient <20 Insufficient 20 to <30Sufficient 30 to 100Reference: Gema Veloz, Faustino SIMEON, et al. Evaluation,treatment, and prevention of vitamin D deficiency; an Endocrine Society clinical practice guideline. JCEM. 2010; 96(7):1911-30. Activated partial thrombopla stin time (aPTT) in platelet poor plasma by coagulation aOrdered By: Meka Acevedo on 06-06-2024 aPTT Coag (PPP) [Time] 26.7 s 25.1-36.5 [facility] Comment on above: A hematocrit value g reater than 55% may lead to inaccurate results in coagulation testing. Patients having hematocrit values >55% require a special collection tube for coagulation studies. Please contact the laboratory at [phone] for redraw instructions. Alanine aminotransferase [En zymatic activity/volume] in Serum or PlasmaOrdered By: Meka Acevedo on 06-06-2024 ALT [Catalytic activity/Vol] 17 U/L Normal [facility] Comment on above: Performed By: #### P T, CBC, PTT, CMP, TSH3, MG, T4F, HS TROP, CK ####[facility] [id number] [place] [id number] [facility] ALT [Catalytic activity/Vol] Alanine aminotransferase [Enzymatic activity/volume] in Serum or Plasma [facility] Albumin [Mass/volume] in Ser um or Plasma by Bromocresol green (BCG) dye binding methoOrdered By: Meka Acevedo on 06-06-2024 Albumin BCG dye [Mass/Vol] 3.9 g/dL 3.5-5.7 [facility] Albumin BCG dye [Mass/Vol] Albumin [Mass/volume] in Serum or Plasma by Bromocresol green (BCG) dye binding metho 3.5-5.7 [facility] Alkaline phosphatase [Enzyma tic activity/volume] in Serum or PlasmaOrdered By: Meka Acevedo on 06-06-2024 ALP [Catalytic activity/Vol] 72 U/L Normal 34-104 [facility] Comment on above: Performed By: #### P T, CBC, PTT, CMP, TSH3, MG, T4F, HS TROP, CK ####[place] [id number] [place] [id number] [facility] ALP [Catalytic activity/Vol] Alkaline phosphatase [Enzymatic activity/volume] in Serum or Plasma 34-104 [facility] Appearance of UrineOrdered B y: Meka Acevedo on 06-06-2024 Appearance (U) Urine appearance Clear [facility] Aspartate aminotransferase [ Enzymatic activity/volume] in Serum or PlasmaOrdered By: Meka Acevedo on 06-06-2024 AST [Catalytic activity/Vol] 22 U/L Normal 39 [facility] Comment on above: Performed By: #### P T, CBC, PTT, CMP, TSH3, MG, T4F, HS TROP, CK ####[place] [id number] [place] [id number] [facility] AST [Catalytic activity/Vol] Aspartate aminotransferase [Enzymatic activity/volume] in Serum or Plasma 13 [facility] Automated basophil %Ordered By: Meka Carden[place]on on 06-06-2024 Basophils/100 WBC (Bld) 0.9 % Normal . [facility] Comment on above: Performed By: #### P T, CBC, PTT, CMP, TSH3, MG, T4F, HS TROP, CK ####[place] [address] [place] [id number] [facility] Automated basophil countOrde red By: Meka Theresaanton on 06-06-2024 Basophils (Bld) [#/Vol] 0.1 10*3/uL Normal 0.0-0.2 [facility] Comment on above: Result Comment: PERF ORMED BY: [facility] [address] [place] [id number] PATHOLOGIST MANAGER [employer]PERATIONS KAMALA SIMON M.D. Performed By: #### P T, CBC, PTT, CMP, TSH3, MG, T4F, HS TROP, CK ####[place] [id number] [facility] Automated blood monocyte cou ntOrdered By: Mekashreya Acevedo on 06-06-2024 Monocytes (Bld) [#/Vol] 0.5 10*3/uL Normal 0.0-0.8 [facility] Comment on above: Performed By: #### P T, CBC, PTT, CMP, TSH3, MG, T4F, HS TROP, CK ####[address] Automated eosinophil %Ordere d By: Meka Acevedo on 06-06-2024 Eosinophils/100 WBC (Bld) 2.2 % Normal . [facility] Comment on above: Performed By: #### P T, CBC, PTT, CMP, TSH3, MG, T4F, HS TROP, CK ####[address] Automated eosinophil countOr dered By: Meka Acevedo on 06-06-2024 Eosinophils (Bld) [#/Vol] 0.1 10*3/uL Normal 0.0-0.45 [facility] Comment on above: Performed By: #### P T, CBC, PTT, CMP, TSH3, MG, T4F, HS TROP, CK ####[address] Automated monocyte %Ordered By: Meka Acevedo on 06-06-2024 Monocytes/100 WBC (Bld) 8.7 % Normal . [facility] Comment on above: Performed By: #### P T, CBC, PTT, CMP, TSH3, MG, T4F, HS TROP, CK ####[place] [id number] [facility] Automated neutrophil %Ordere d By: Meka Acevedo on 06-06-2024 Neutrophils/100 WBC (Bld) 74.5 % Normal . [facility] Comment on above: Performed By: #### P T, CBC, PTT, CMP, TSH3, MG, T4F, HS TROP, CK ####[place] [id number] [facility] Basophils Auto (Bld) [#/Vol] Ordered By: Meka Acevedo on 06-06-2024 Basophils (Bld) [#/Vol] Automated basophil count 0.0-0.2 [facility] Basophils/100 WBC Auto (Bld) Ordered By: Meka Acevedo on 06-06-2024 Basophils/100 WBC (Bld) Automated basophil % . [facility] Bilirubin Test strip Ql (U)O rdered By: Meka Acevedo on 06-06-2024 Bilirubin Ql (U) Negative Negative [facility] Bilirubin Ql (U) Bilirubin.total [Presence] in Urine by Test strip Negative [facility] Bilirubin.total [Mass/volume ] in Serum or PlasmaOrdered By: Meka Acevedo on 06-06-2024 Bilirubin [Mass/Vol] 0.6 mg/dL Normal 0.3-1.0 [facility] Comment on above: Performed By: #### P T, CBC, PTT, CMP, TSH3, MG, T4F, HS TROP, CK ####[facility] [id number] Bilirubin [Mass/Vol] Bilirubin.total [Mass/volume] in Serum or Plasma 0.3-1.0 [facility] BioFire Not Detectedon 06-06 BioFire Not Detected Not detected Normal Not Detecte [facility] Comment on above: Result Comment: This is a duplicate RP2.1 COVID (PCR) result to be used for statistical tracking purpose only. PERFORMED BY: [place] [address] PATHOLOGIST MANAGER [employer] KAMALA SIMON M.D. Performed By: #### R DEVORAH PANEL UPP., BIOFIRECOVNOTDE #### [facility] [address] [place] [address] COVID-19 Detected/Not Detect edOrdered By: Meka Cardenasflorenciabolivar on 06-06-2024 SARS-CoV-2 (COVID-19) RNA [place]STON+non-probe Ql (Nph) Not detected Not Detecte [facility] Comment on above: This is a duplicate RP2.1 COVID (PCR) result to be used for statistical tracking purpose only. CT head/brain wo conon 06-06 CT head/brain wo con [facility] [address] [place] [address] [place] [address] CT Scan Report Signed Patient: Jennifer Rothman MR#: [id number] 5 : 1960 Acct:[id number] Age/Sex: 63 / F ADM Date: 06/06/24 Loc: ER Room: Type: [facility] ER Attending Dr: Copies to: Meka Acevedo APRN Ordering Provider: Meka Acevedo APRN Date of Service: 06/06/24 CT/CT head/brain wo con: increased headache/ weakness Unenhanced head CT TECHNIQUE: Contiguous axial imaging of the head. The CT exam was performed using one or more the following dose reduction techniques: Automated exposure control, adjustment of the MA and/or Kv according to patient size, or use of the iterative reconstruction technique. COMPARISON: 06/02/24 HISTORY: Headache. Weakness. VENTRICLES: Within normal limits ATROPHY: Mild atrophy BRAIN PARENCHYMA: Decreased density of the white matter is most consistent with chronic small vessel disease. HEMORRHAGE: None HERNIATION: No mass effect or herniation INFARCTION: No recent vascular distribution infarction is seen. Remote RIGHT basal ganglia lacunar infarction. EXTRA-AXIAL FLUID COLLECTIONS None MIDBRAIN: Unremarkable ARACELI: Unremarkable MEDULLA: Unremarkable SINUSES: Unremarkable ORBITS: Grossly unremarkable MASTOIDS: Unremarkable BONY STRUCTURES Intact ADDITIONAL FINDINGS: CT/CT head/brain wo con IMPRESSION: No acute findings. Remote RIGHT basal ganglia lacunar infarction. Impression dictated by: Aron Cross M.D.06/06/2024 3:41 PM Dictation Location: [place] [address] Transcribed By: [facility] 06/06/24 1541 Dictated By: Aron Cross DO 06/06/24 1536 Signed By: 06/06/24 1541 Normal [facility] Calcium [Mass/volume] in Ser um or PlasmaOrdered By: Meka Acevedo on 06-06-2024 Calcium [Mass/Vol] 8.6 mg/dL Normal 8.6-10.3 [facility] Comment on above: Performed By: #### P T, CBC, PTT, CMP, TSH3, MG, T4F, HS TROP, CK ####[facility] [id number] Capillary blood glucose nu urement by glucometer (mass/volume)Ordered By: Meka Acevedo on 06-06-2024 Glucose [Mass/Vol] 153 mg/dL Normal [facility] Comment on above: Random Glucose Refer ence Range is dependent on time and content of last meal. Glucose of more than 200 mg/dL in a nonstressed, ambulatory subject supports the diagnosis of Diabetes Mellitus. Result Comment: [place] Glucose Reference Range is dependent on time and content of last meal. Glucose of more than 200 mg/dL in a nonstressed, ambulatory subject supports the diagnosis of Diabetes Mellitus. PERFORMED BY: [facility] [address] [place] [address] PATHOLOGIST MANAGER [employer] KAMALA SIMON M.D. Performed By: #### G LUYESSICA #### Point of Care testing , Carbon dioxide, total [Moles /volume] in Serum or PlasmaOrdered By: Meka Acevedo on 06-06-2024 CO2 [Moles/Vol] 25.1 mmol/L Normal 21.0-31.0 [facility] Comment on above: Performed By: #### P T, CBC, PTT, CMP, TSH3, MG, T4F, HS TROP, CK ####[facility] [id number] Chloride [Moles/volume] in S marco antonio or PlasmaOrdered By: Meka Acevedo on 06-06-2024 Chloride [Moles/Vol] 106 mmol/L Normal 98-107 [facility] Comment on above: Performed By: #### P T, CBC, PTT, CMP, TSH3, MG, T4F, HS TROP, CK ####[place] [id number] [place] [address] [place] Color Auto (U)Ordered By: Zoya Acevedo on 06-06-2024 Color (U) Color of Urine by Auto Yellow [facility] Color of Urine by AutoOrdere d By: Meka Acevedo on 06-06-2024 Color (U) Colorless Normal Yellow [facility] Comment on above: Order Comment: Name Collection Type:: Clean-Voided Midstream Performed By: #### R DEVORAH PANEL UPP., BIOFIRECOVNOTDE #### [facility] [address] Complete Blood Count Auto Di ffon 06-06-2024 Mean Corpuscular HGB Conc 32.4 g/dL Normal 32.0-35.0 [facility] Comment on above: Performed By: #### P T, CBC, PTT, CMP, TSH3, MG, T4F, HS TROP, CK ####[address] Monocytes/100 WBC (Bld) 17.00 % Normal 0.00-20.00 [facility] Comment on above: Performed By: #### P T, CBC, PTT, CMP, TSH3, MG, T4F, HS TROP, CK ####[address] NRBC% 0.0 /100{WBC} Normal 0-0.5 [facility] Comment on above: Performed By: #### P T, CBC, PTT, CMP, TSH3, MG, T4F, HS TROP, CK ####[address] Comprehensive Metabolic Pane demetria 06-06-2024 Albumin [Mass/Vol] 3.9 g/dL Normal 3.5-5.7 [facility] Comment on above: Performed By: #### P T, CBC, PTT, CMP, TSH3, MG, T4F, HS TROP, CK ####[address] Creatinine Clr Calc Pharmacy 79.93 Normal [facility] Comment on above: Performed By: #### P T, CBC, PTT, CMP, TSH3, MG, T4F, HS TROP, CK ####[address] GFR/1.73 sq M.predicted MDRD (S/P/Bld) [Vol rate/Area] mL/min/{1.73_m2} Normal [facility] Comment on above: Performed By: #### P T, CBC, PTT, CMP, TSH3, MG, T4F, HS TROP, CK ####[place] [id number] [facility] Creatine kinase [Enzymatic a ctivity/volume] in Serum or PlasmaOrdered By: Meka Acevedo on 06-06-2024 CK [Catalytic activity/Vol] 93 U/L Normal [facility] Comment on above: Performed By: #### P T, CBC, PTT, CMP, TSH3, MG, T4F, HS TROP, CK ####[facility] [id number] [place] [address] [facility] CK [Catalytic activity/Vol] Creatine kinase [Enzymatic activity/volume] in Serum or Plasma [facility] Creatinine [Mass/volume] in Serum or PlasmaOrdered By: Meka Acevedo on 06-06-2024 Creatinine [Mass/Vol] 0.89 mg/dL Normal 0.60-1.20 [facility] Comment on above: Performed By: #### P T, CBC, PTT, CMP, TSH3, MG, T4F, HS TROP, CK ####[place] [address] [place] [address] [facility] ECG 12 lead ECGon 06-06-2024 ECG 12 lead ECG [facility] [address] [place] [address] [place] [address] Electrocardiograph Report Signed Patient: Jennifer Rothman MR#: [id number] 5 : 1960 Acct:[id number] Age/Sex: 63 / F ADM Date: 06/06/24 Loc: Room: [address] [place] [address] Type: ADM INOo Attending Dr: Andres Holden DO Ordering Provider: Meka Acevedo APRN Date of Service: 06/06/24 ECG/ECG 12 lead ECG: WEAKNESS Copies to: Test Reason : Blood Pressure : 124/59 mmHG Vent. Rate : 60 BPM Atrial Rate : 60 BPM P-R Int : 170 ms QRS Dur : 94 ms QT Int : 478 ms P-R-T Axes : 2 79 103 degrees QTcB Int : 478 ms Normal sinus rhythm Nonspecific T wave abnormality Confirmed by Adam Pierce DO ([id number]) on 06/07/2024 2:42:22 AM Referred By: Electronically Signed By: Adam Pierce DO Transcribed By: MUS Signed By Adam Pierce DO 0242 Normal [facility] Eosinophils Auto (Bld) [#/Vo l]Ordered By: Meka Acevedo on 06-06-2024 Eosinophils (Bld) [#/Vol] Automated eosinophil count 0.0-0.45 [facility] Eosinophils/100 WBC Auto (Bl d)Ordered By: Meka Acevedo on 06-06-2024 Eosinophils/100 WBC (Bld) Automated eosinophil % . [facility] Erythrocyte distribution wid th [Ratio] by Automated countOrdered By: Meka Acevedo on 06-06-2024 Erythrocyte distribution width (RBC) [Ratio] 14.4 % Normal 11.9-15.3 [facility] Comment on above: Performed By: #### P T, CBC, PTT, CMP, TSH3, MG, T4F, HS TROP, CK ####[facility] [place] [id number] [facility] Erythrocytes [#/volume] in B lood by Automated countOrdered By: Meka Acevedo on 06-06-2024 RBC (Bld) [#/Vol] 4.58 10*6/uL Normal 3.60-5.00 [facility] Comment on above: Performed By: #### P T, CBC, PTT, CMP, TSH3, MG, T4F, HS TROP, CK ####[facility] [place] [address] [facility] Globulin Calc (S) [Mass/Vol] Ordered By: Meka Acevedo on 06-06-2024 Globulin (S) [Mass/Vol] Serum globulin measurement by calculation (mass/volume) [facility] Glucose Poct Glucometerson 0 06-06-2024 Glucose [Mass/Vol] 89 mg/dL Normal [facility] Comment on above: Result Comment: [facility] [place][note 2] Glucose Reference Range is dependent on time and content of last meal. Glucose of more than 200 mg/dL in a nonstressed, ambulatory subject supports the diagnosis of Diabetes Mellitus. PERFORMED BY: [facility] [address] [place] [id number] PATHOLOGIST MANAGER [employer] KAMALA SIMON M.D. Performed By: #### R DEVORAH PANEL UPP., BIOFIRECOVNOTDE #### [facility] [address] [place] [id number] [place] Glucose [Mass/volume] in Ser um or PlasmaOrdered By: Meka Acevedo on 06-06-2024 Glucose [Mass/Vol] 161 mg/dL High 70-100 [facility] Comment on above: ADA recommended refe rence rangeRandom Glucose Reference Range is dependent on time and content of last meal. Glucose of more than 200 mg/dL in a nonstressed, ambulatory subject supports the diagnosis of Diabetes Mellitus. Result Comment: [place] Glucose Reference Range is dependent on time and content of last meal. Glucose of more than 200 mg/dL in a nonstressed, ambulatory subject supports the diagnosis of Diabetes Mellitus. ADA recommended reference range Performed By: #### P T, CBC, PTT, CMP, TSH3, MG, T4F, HS TROP, CK ####[facility] [id number] [place] [address] [place] Glucose [Mass/volume] in Uri ne by Test stripOrdered By: Meka Acevedo on 06-06-2024 Glucose Test strip (U) [Mass/Vol] Normal mg/dL Normal [facility] Glucose Test strip (U) [Mass/Vol] Glucose [Mass/volume] in Urine by Test strip Normal [facility] Hematocrit [Volume Fraction] of Blood by Automated countOrdered By: Meka Acevedo on 06-06-2024 Hematocrit (Bld) [Volume fraction] 40.7 % Normal 34.0-46.4 [facility] Comment on above: Performed By: #### P T, CBC, PTT, CMP, TSH3, MG, T4F, HS TROP, CK ####[facility] [place] [id number] [facility] Hemoglobin Test strip Ql (U) Ordered By: Mkea Acevedo on 06-06-2024 Hemoglobin Ql (U) Negative Negative [facility] Hemoglobin Ql (U) Hemoglobin [Presence ] in Urine by Test strip Negative [facility] Hemoglobin [Mass/volume] in BloodOrdered By: Meka Acevedo on 06-06-2024 Hemoglobin (Bld) [Mass/Vol] 13.2 g/dL Normal 11.8-15.4 [facility] Comment on above: Performed By: #### P T, CBC, PTT, CMP, TSH3, MG, T4F, HS TROP, CK ####[facility] [id number] [place] [address] [facility] INR in Platelet poor plasma by Coagulation assayOrdered By: Meka Acevedo on 06-06-2024 INR Coag (PPP) [Relative time] 1.0 {INR} Normal [facility] Comment on above: INR Therapeutic Rang e A) Pre- and Peroperative OAT started two weeks before surgery. NOT HIP SURGERY: 1.5 - 2.5 HIP SURGERY: 2 - 3B) Primary and secondary prevention of venous THROMBOSIS: 2 - 3C) Active venous thrombosis, pulmonary embolismand prevention of recurrent venous thrombosis: 2 - 3D) Prevention of arterial thromboembolismincluding patients with mechanical heart valves: 3 - 4.5 Result Comment: INR Therapeutic Range A) Pre- and Peroperative OAT started two weeks before surgery. NOT HIP SURGERY: 1.5 - 2.5 HIP SURGERY: 2 - 3 B) Primary and secondary prevention of venous THROMBOSIS: 2 - 3 C) Active venous thrombosis, pulmonary embolism and prevention of recurrent venous thrombosis: 2 - 3 D) Prevention of arterial thromboembolism including patients with mechanical heart valves: 3 - 4.5 Performed By: #### P T, CBC, PTT, CMP, TSH3, MG, T4F, HS TROP, CK ####[facility] [id number] [place] [id number] [facility] INR Coag (PPP) [Relative time] INR in Platelet poor plasma by Coagulation assay [facility] Comment on above: INR Therapeutic Rang e A) Pre- and Peroperative OAT started two weeks before surgery. NOT HIP SURGERY: 1.5 - 2.5 HIP SURGERY: 2 - 3B) Primary and secondary prevention of venous THROMBOSIS: 2 - 3C) Active venous thrombosis, pulmonary embolismand prevention of recurrent venous thrombosis: 2 - 3D) Prevention of arterial thromboembolismincluding patients with mechanical heart valves: 3 - 4.5 Ketones Test strip Ql (U)Ord ered By: Meka Acevedo on 06-06-2024 Ketones Ql (U) Ketones [Presence] i n Urine by Test strip Negative [facility] Ketones [Presence] in Urine by Test stripOrdered By: Meka Acevedo on 06-06-2024 Ketones Ql (U) Negative Normal Negative [facility] Comment on above: Order Comment: Name Collection Type:: Clean-Voided Midstream Performed By: #### R DEVORAH PANEL UPP., BIOFIRECOVNOTDE #### [facility] [address] [place] [address] [place] Leukocyte esterase [Presence ] in Urine by Test stripOrdered By: Meka Acevedo on 06-06-2024 Leukocyte esterase Test strip Ql (U) Negative Normal Negative [facility] Comment on above: Order Comment: Name Collection Type:: Clean-Voided Midstream Performed By: #### R DEVORAH PANEL UPP., BIOFIRECOVNOTDE #### [facility] [address] Leukocyte esterase Test strip Ql (U) Leukocyte esterase [Presence] in Urine by Test strip Negative [facility] Leukocytes [#/volume] correc janice for nucleated erythrocytes in Blood by Automated counOrdered By: Meka Acevedo on 06-06-2024 WBC corrected for nucl RBC Auto (Bld) [#/Vol] 5.8 10*3/uL 3.8-11.6 [facility] Leukocytes [#/volume] in Blo od by Automated countOrdered By: Meka Acevedo on 06-06-2024 WBC (Bld) [#/Vol] 5.8 10*3/uL Normal 3.8-11.6 [facility] Comment on above: Performed By: #### P T, CBC, PTT, CMP, TSH3, MG, T4F, HS TROP, CK ####[facility] [id number] [place] [address] [place] Lymphocytes Auto (Bld) [#/Vo l]Ordered By: Meka Acevedo on 06-06-2024 Lymphocytes (Bld) [#/Vol] Lymphocytes [#/volume] in Blood by Automated count Low 1.00-4.8 [facility] Lymphocytes [#/volume] in Bl ood by Automated countOrdered By: Meka Acevedo on 06-06-2024 Lymphocytes (Bld) [#/Vol] 0.8 10*3/uL Low 1.00-4.8 [facility] Comment on above: Performed By: #### P T, CBC, PTT, CMP, TSH3, MG, T4F, HS TROP, CK ####[address] Lymphocytes/100 WBC Auto (Bl d)Ordered By: Meka Acevedo on 06-06-2024 Lymphocytes/100 WBC (Bld) Lymphocytes/100 leukocytes in Blood by Automated count . [facility] Lymphocytes/100 leukocytes i n Blood by Automated countOrdered By: Meka Acevedo on 06-06-2024 Lymphocytes/100 WBC (Bld) 13.7 % Normal . [facility] Comment on above: Performed By: #### P T, CBC, PTT, CMP, TSH3, MG, T4F, HS TROP, CK ####[address] MCH [Entitic mass] by Automa janice countOrdered By: Meka Acevedo on 06-06-2024 MCH (RBC) [Entitic mass] 28.8 pg Normal 24.7-34.3 [facility] Comment on above: Performed By: #### P T, CBC, PTT, CMP, TSH3, MG, T4F, HS TROP, CK ####[address] MCHC Auto (RBC) [Mass/Vol]Or dered By: Meka Acevedo on 06-06-2024 MCHC (RBC) [Mass/Vol] 32.4 g/dL 32.0-35.0 [facility] MCV [Entitic volume] by Auto mated countOrdered By: Meka Acevedo on 06-06-2024 MCV (RBC) [Entitic vol] 88.8 fL Normal 80-100 [facility] Comment on above: Performed By: #### P T, CBC, PTT, CMP, TSH3, MG, T4F, HS TROP, CK ####[address] [place] [address] [place] Magnesium [Mass/volume] in S marco antonio or PlasmaOrdered By: Meka Acevedo on 06-06-2024 Magnesium [Mass/Vol] 2.0 mg/dL Normal 1.9-2.7 [facility] Comment on above: Performed By: #### C BCNO, BMP #### [facility] [address] Magnesium [Mass/Vol] Magnesium [Mass/vol ume] in Serum or Plasma 1.9-2.7 [facility] Monocyte distribution width [Entitic volume] in Blood by AutomatedOrdered By: Meka Acevedo on 06-06-2024 Monocyte distribution width Auto (Bld) [Entitic vol] 17.00 % 0.00-20.00 [facility] Monocyte distribution width Auto (Bld) [Entitic vol] Monocyte distribution width [Entitic volume] in Blood by Automated 0.00-20.00 [facility] Monocytes Auto (Bld) [#/Vol] Ordered By: Meka Acevedo on 06-06-2024 Monocytes (Bld) [#/Vol] Automated blood monocyte count 0.0-0.8 [facility] Monocytes/100 WBC Auto (Bld) Ordered By: Meka Acevedo on 06-06-2024 Monocytes/100 WBC (Bld) Automated monocyte % . [facility] Neutrophils Auto (Bld) [#/Vo l]Ordered By: Meka Acevedo on 06-06-2024 Neutrophils (Bld) [#/Vol] Neutrophils [#/volume] in Blood by Automated count 1.8-7.7 [facility] Neutrophils [#/volume] in Bl ood by Automated countOrdered By: Meka Acevedo on 06-06-2024 Neutrophils (Bld) [#/Vol] 4.4 10*3/uL Normal 1.8-7.7 [facility] Comment on above: Performed By: #### P T, CBC, PTT, CMP, TSH3, MG, T4F, HS TROP, CK ####[facility] [id number] Neutrophils/100 WBC Auto (Bl d)Ordered By: Meka Acevedo on 06-06-2024 Neutrophils/100 WBC (Bld) Automated neutrophil % . [facility] Nitrite Test strip Ql (U)Ord ered By: Meka Acevedo on 06-06-2024 Nitrite Ql (U) Negative Negative [facility] Nitrite Ql (U) Nitrite [Presence] i n Urine by Test strip Negative [facility] No Panel InformationOrdered By: Meka Acevedo on 06-06-2024 Estimated GFR (CKD-EPI) > 60.0 mL/Min [facility] Creatinine Clearance (Chem 79.93 [facility] Nucleated erythrocytes [Pres ence] in Blood by Automated countOrdered By: Meka Acevedo on 06-06-2024 Nucleated RBC Auto Ql (Bld) 0.0 /100{WBC} 0-0.5 [facility] Nucleated RBC Auto Ql (Bld) Nucleated erythrocytes [Presence] in Blood by Automated count 0-0.5 [facility] Partial Thromboplastin Timeo n 06-06-2024 aPTT Coag (Bld) [Time] 26.7 s Normal 25.1-36.5 [facility] Comment on above: Result Comment: A he matocrit value greater than 55% may lead to inaccurate results in coagulation testing. Patients having hematocrit values >55% require a special collection tube for coagulation studies. Please contact the laboratory at [phone] for redraw instructions. PERFORMED BY: [facility] [address] [place] [address] PATHOLOGIST MANAGER [employer] KAMALA SIMON M.D. Performed By: #### P T, CBC, PTT, CMP, TSH3, MG, T4F, HS TROP, CK ####[facility] [id number] [place] [address] [facility] Platelet mean volume [Entiti c volume] in Blood by Automated countOrdered By: Meka Acevedo on 06-06-2024 Platelet mean volume (Bld) [Entitic vol] 8.9 fL Normal 6.3-10.7 [facility] Comment on above: Performed By: #### P T, CBC, PTT, CMP, TSH3, MG, T4F, HS TROP, CK ####[place] [address] [place] [address] [facility] Platelets [#/volume] in Bloo d by Automated countOrdered By: Meka Acevedo on 06-06-2024 Platelets (Bld) [#/Vol] 199 10*3/uL Normal 150-450 [facility] Comment on above: Performed By: #### P T, CBC, PTT, CMP, TSH3, MG, T4F, HS TROP, CK ####[place] [address] [place] [address] [facility] Potassium [Moles/volume] in Serum or PlasmaOrdered By: Meka Acevedo on 06-06-2024 Potassium [Moles/Vol] 3.7 mmol/L Normal 3.5-5.1 [facility] Comment on above: Performed By: #### P T, CBC, PTT, CMP, TSH3, MG, T4F, HS TROP, CK ####[place] [id number] [facility] Protein Test strip (U) [Mass /Vol]Ordered By: Meka Acevedo on 06-06-2024 Protein (U) [Mass/Vol] Negative Negative [facility] Protein (U) [Mass/Vol] Protein [Mass/vol ume] in Urine by Test strip Negative [facility] Protein [Mass/volume] in Ser um or PlasmaOrdered By: Meka Acevedo on 06-06-2024 Protein [Mass/Vol] 6.0 g/dL Low 6.4-8.9 [facility] Comment on above: Performed By: #### P T, CBC, PTT, CMP, TSH3, MG, T4F, HS TROP, CK ####[place] [id number] [facility] Protein [Mass/Vol] Protein [Mass/volume ] in Serum or Plasma Low 6.4-8.9 [facility] Prothrombin time (PT)Ordered By: Meka Acevedo on 06-06-2024 PT Coag (PPP) [Time] 12.1 s Normal 9.0-12.9 [facility] Comment on above: A hematocrit value g reater than 55% may lead to inaccurate results in coagulation testing. Patients having hematocrit values >55% require a special collection tube for coagulation studies. Please contact the laboratory at [phone] for redraw instructions. Result Comment: A he matocrit value greater than 55% may lead to inaccurate results in coagulation testing. Patients having hematocrit values >55% require a special collection tube for coagulation studies. Please contact the laboratory at [phone] for redraw instructions. Performed By: #### P T, CBC, PTT, CMP, TSH3, MG, T4F, HS TROP, CK ####[facility] [address] [place] [id number] [facility] PT Coag (PPP) [Time] Prothrombin time (PT) 9.0- 12.9 [facility] Comment on above: A hematocrit value g reater than 55% may lead to inaccurate results in coagulation testing. Patients having hematocrit values >55% require a special collection tube for coagulation studies. Please contact the laboratory at [phone] for redraw instructions. Respiratory (Upper) Panel, P CRon 06-06-2024 Respiratory (Upper) Panel, PCR Adenovirus Not detected Bordetella parapertussis Not detected Chlamydia pneumoniae Not detected Coronavirus 229E Not detected Coronavirus HKU1 Not detected Coronavirus NL63 Not detected Coronavirus OC43 Not detected Influenza A Not detected Influenza B Not detected Human Metapneumovirus Not detected Mycoplasma pneumoniae Not detected Parainfluenza Virus 1 Not detected Parainfluenza Virus 2 Not detected Parainfluenza Virus 3 Not detected Parainfluenza Virus 4 Not detected Bordetella pertussis-ptxP Not detected Human Rhino/Enterovirus Not detected Resp. Syncytial Virus Not detected COVID-19 Detected/Not Detected Not detected Blank Space ---- FLUA TEST INCLUDES Influenza A tests for the following clinically FLUA TEST INCLUDES significant subtypes: FLUA TEST INCLUDES - Influenza A FLUA TEST INCLUDES - Influenza A H1 FLUA TEST INCLUDES - Influenza A H1 2009 FLUA TEST INCLUDES - Influenza A H3 Blank Space ---- PERFORMED BY: [facility] [address] [place] [address] PATHOLOGIST MANAGER [employer] KAMALA SIMON M.D. Normal [facility] Comment on above: Performed By: #### R DEVORAH PANEL UPP., BIOFIRECOVNOTDE #### [facility] [address] Respiratory pathogens DNA an d RNA panel - Nasopharynx by WESTON with non-probe detectionOrdered By: Meka Acevedo on 06-06-2024 Respiratory pathogens DNA and RNA panel WESTON+non-probe (Nph) Respiratory pathogens DNA and RNA panel - Nasopharynx by WESTON with non-probe detection [facility] Respiratory pathogens DNA and RNA panel WESTON+non-probe (Nph) [facility] Serum globulin measurement b y calculation (mass/volume)Ordered By: Meka Acevedo on 06-06-2024 Globulin (S) [Mass/Vol] 2.1 g/dL Normal [facility] Comment on above: Performed By: #### P T, CBC, PTT, CMP, TSH3, MG, T4F, HS TROP, CK ####[facility] [id number] Serum or plasma albumin/glob ulin mass ratioOrdered By: Meka Acevedo on 06-06-2024 Albumin/Globulin [Mass ratio] 1.9 {ratio} Normal [facility] Comment on above: Performed By: #### P T, CBC, PTT, CMP, TSH3, MG, T4F, HS TROP, CK ####[facility] [id number] [address] Albumin/Globulin [Mass ratio] Serum or plasma albumin/globulin mass ratio [facility] Serum or plasma anion gap de terminationOrdered By: Meka Acevedo on 06-06-2024 Anion gap [Moles/Vol] 10.6 mmol/L Normal 6.0-15.0 [facility] Comment on above: Performed By: #### P T, CBC, PTT, CMP, TSH3, MG, T4F, HS TROP, CK ####[place] [id number] [address] Sodium [Moles/volume] in Ser um or PlasmaOrdered By: Meka Acevedo on 06-06-2024 Sodium [Moles/Vol] 138 mmol/L Normal 136-145 [facility] Comment on above: Performed By: #### P T, CBC, PTT, CMP, TSH3, MG, T4F, HS TROP, CK ####[place] [id number] [address] Specific gravity Test strip (U) [Rel density]Ordered By: Meka Acevedo on 06-06-2024 Specific gravity (U) [Rel density] 1.006 1.001-1.03 0 [facility] Specific gravity (U) [Rel density] Specific gravity of Urine by Test strip 1.001-1.03 0 [facility] Thyrotropin [Units/volume] i n Serum or PlasmaOrdered By: Meka Acevedo on 06-06-2024 TSH Qn 1.46 m[IU]/L Normal 0.45-5.33 [facility] Comment on above: Result Comment: PERF ORMED BY: [place] [address] PATHOLOGIST MANAGER [employer] KAMALA SIMON M.D. Performed By: #### C MELISSA, BMP #### [address] TSH Qn Thyrotropin [Units/volume] in Serum or Plasma 0.45-5.33 [facility] Thyroxine (T4) free [Mass/vo lume] in Serum or PlasmaOrdered By: Meka Acevedo on 06-06-2024 Free T4 [Mass/Vol] 1.02 ng/dL Normal 0.61-1.12 [facility] Comment on above: Performed By: #### C MELISSA, BMP #### [address] Free T4 [Mass/Vol] Thyroxine (T4) free [Mass/volume] in Serum or Plasma 0.61-1.12 [facility] Troponin I High Sensitivityo n 06-06-2024 Troponin I High Sensitivity 3.3 pg/mL Normal 0.0-15.0 [facility] Comment on above: Result Comment: PERF ORMED BY: [facility] [address] [place] [address] PATHOLOGIST MANAGER [employer] KAMALA SIMON M.D. Performed By: #### H S TROP ####[place] [id number] [place] [address] [facility] Troponin I High Sensitivity 5.3 pg/mL Normal 0.0-15.0 [facility] Comment on above: Result Comment: PERF ORMED BY: [facility] [address] [place] [address] PATHOLOGIST MANAGER [employer] KAMALA SIMON M.D. Performed By: #### P T, CBC, PTT, CMP, TSH3, MG, T4F, HS TROP, CK ####[place] [id number] [facility] Troponin I.cardiac [Mass/vol ume] in Serum or Plasma by Detection limit <= 0.01 ng/Ordered By: Meka Acevedo on 06-06-2024 Troponin I.cardiac DL <= 0.01 ng/mL [Mass/Vol] 3.3 pg/mL 0.0-15.0 [facility] Troponin I.cardiac DL <= 0.01 ng/mL [Mass/Vol] Troponin I.cardiac [Mass/volume] in Serum or Plasma by Detection limit <= 0.01 ng/ 0.0-15.0 [facility] Urea nitrogen [Mass/volume] in Serum or PlasmaOrdered By: Meka Acevedo on 06-06-2024 Urea nitrogen [Mass/Vol] 8 mg/dL Normal 7-25 [facility] Comment on above: Performed By: #### P T, CBC, PTT, CMP, TSH3, MG, T4F, HS TROP, CK ####[place] [id number] [facility] Urinalysison 06-06-2024 Bilirubin,Urine Negative Normal Negative [facility] Comment on above: Order Comment: Name Collection Type:: Clean-Voided Midstream Performed By: #### R DEVORAH PANEL UPP., BIOFIRECOVNOTDE #### [address] Glucose Ql (U) Normal Normal Normal [facility] Comment on above: Order Comment: Name Collection Type:: Clean-Voided Midstream Performed By: #### R DEVORAH PANEL UPP., BIOFIRECOVNOTDE #### [address] Nitrite,Urine Negative Normal Negative [facility] Comment on above: Order Comment: Name Collection Type:: Clean-Voided Midstream Performed By: #### R DEVORAH PANEL UPP., BIOFIRECOVNOTDE #### [address] Occult Blood,Urine Negative Normal Negative [facility] Comment on above: Order Comment: Name Collection Type:: Clean-Voided Midstream Result Comment: PERF ORMED BY: [place] [address] PATHOLOGIST MANAGER [employer] KAMALA SIMON M.D. Performed By: #### R DEVORAH PANEL UPP., BIOFIRECOVNOTDE #### [address] Protein,Urine Negative Normal Negative [facility] Comment on above: Order Comment: Name Collection Type:: Clean-Voided Midstream Performed By: #### R DEVORAH PANEL UPP., BIOFIRECOVNOTDE #### [address] Specificy Lefor,Urine 1.006 Normal 1.001-1.03 0 [facility] Comment on above: Order Comment: Name Collection Type:: Clean-Voided Midstream Performed By: #### R DEVORAH PANEL UPP., BIOFIRECOVNOTDE #### [address] Urobilinogen,Urine Normal Normal Normal [facility] Comment on above: Order Comment: Name Collection Type:: Clean-Voided Midstream Performed By: #### R DEVORAH PANEL UPP., BIOFIRECOVNOTDE #### [facility] [address] Urine appearanceOrdered By: Meka Acevedo on 06-06-2024 Appearance (U) Clear Normal Clear [facility] Comment on above: Order Comment: Name Collection Type:: Clean-Voided Midstream Performed By: #### R DEVORAH PANEL UPP., BIOFIRECOVNOTDE #### [facility] [address] [place] [address] Urobilinogen Test strip (U) [Mass/Vol]Ordered By: Meka Acevedo on 06-06-2024 Urobilinogen (U) [Mass/Vol] Normal mg/dL Normal [facility] Urobilinogen (U) [Mass/Vol] Urobilinogen [Mass/volume] in Urine by Test strip Normal [facility] WBC Auto (Bld) [#/Vol]Ordere d By: Meka Acevedo on 06-06-2024 WBC (Bld) [#/Vol] Leukocytes [#/volume ] in Blood by Automated count 3.8-11.6 [facility] XR chest 1V portableon 06-06 XR chest 1V portable [facility] [place] [address] [place] [address] XRay Report Signed Patient: Jennifer Rothman MR#: [id number] 5 : 1960 Acct:[id number] Age/Sex: 63 / F ADM Date: 06/06/24 Loc: ER Room: Type: [facility] ER Attending Dr: Copies to: Meka Acevedo APRN Ordering Provider: Meka Acevedo APRN Date of Service: 06/06/24 XR/XR chest 1V portable: WEAKNESS Plain film chest Single view HISTORY: Generalized weakness COMPARISON: 06/02/24 FINDINGS: SUPPORT DEVICES: None POSTSURGICAL CHANGES: None HEART: Within normal limits PULMONARY LEI: Within normal limits MEDIASTINUM: Unremarkable LUNGS AND PLEURA: No acute lung process, pleural effusion or pneumothorax identified. BONY STRUCTURES: Intact ADDITIONAL FINDINGS None XR/XR chest 1V portable IMPRESSION: No acute process. Impression dictated by: Aron Cross M.D.06/06/2024 3:44 PM Dictation Location: [place] [address] Transcribed By: [facility] 06/06/24 1544 Dictated By: Aron Cross DO 06/06/24 1542 Signed By: 06/06/24 1544 Normal [facility] aPTT in Platelet poor plasma by Coagulation assayOrdered By: Meka Acevedo on 06-06-2024 aPTT Coag (PPP) [Time] Activated partial thromboplastin time (aPTT) in platelet poor plasma by coagulation a 25.1-36.5 [facility] Comment on above: A hematocrit value g reater than 55% may lead to inaccurate results in coagulation testing. Patients having hematocrit values >55% require a special collection tube for coagulation studies. Please contact the laboratory at [phone] for redraw instructions. pH Test strip (U)Ordered By: Meka Acevedo on 06-06-2024 pH (U) pH of Urine by Test strip 5.0-9.0 [facility] pH of Urine by Test stripOrd ered By: Meka Acevedo on 06-06-2024 pH (U) 6.5 [pH] Normal 5.0-9.0 [facility] Comment on above: Order Comment: Name Collection Type:: Clean-Voided Midstream Performed By: #### R DEVORAH PANEL UPP., BIOFIRECOVNOTDE #### [facility] [address] Activated partial thrombopla stin time (aPTT) in platelet poor plasma by coagulation aOrdered By: Adam Pierce on 06-02-2024 aPTT Coag (PPP) [Time] 32.4 s 25.1-36.5 [facility] Comment on above: A hematocrit value g reater than 55% may lead to inaccurate results in coagulation testing. Patients having hematocrit values >55% require a special collection tube for coagulation studies. Please contact the laboratory at [phone] for redraw instructions. Alanine aminotransferase [En zymatic activity/volume] in Serum or PlasmaOrdered By: Adam Pierce on 06-02-2024 ALT [Catalytic activity/Vol] 17 U/L Normal [facility] Comment on above: Performed By: #### R DEVORAH PANEL UPP., BIOFIRECOVNOTDE #### [facility] [address] ALT [Catalytic activity/Vol] Alanine aminotransferase [Enzymatic activity/volume] in Serum or Plasma [facility] Albumin [Mass/volume] in Ser um or Plasma by Bromocresol green (BCG) dye binding methoOrdered By: Adam Pierce on 06-02-2024 Albumin BCG dye [Mass/Vol] 4.0 g/dL 3.5-5.7 [facility] Albumin BCG dye [Mass/Vol] Albumin [Mass/volume] in Serum or Plasma by Bromocresol green (BCG) dye binding metho 3.5-5.7 [facility] Alkaline phosphatase [Enzyma tic activity/volume] in Serum or PlasmaOrdered By: Adam Sarah on 06-02-2024 ALP [Catalytic activity/Vol] 76 U/L Normal [facility] Comment on above: Performed By: #### R DEVORAH PANEL UPP., BIOFIRECOVNOTDE #### [address] ALP [Catalytic activity/Vol] Alkaline phosphatase [Enzymatic activity/volume] in Serum or Plasma [facility] Appearance of UrineOrdered B y: Adam Muirarthy on 06-02-2024 Appearance (U) Urine appearance Clear [facility] Aspartate aminotransferase [ Enzymatic activity/volume] in Serum or PlasmaOrdered By: Adam Sarah on 06-02-2024 AST [Catalytic activity/Vol] 19 U/L Normal [facility] Comment on above: Performed By: #### R DEVORAH PANEL UPP., BIOFIRECOVNOTDE #### [address] AST [Catalytic activity/Vol] Aspartate aminotransferase [Enzymatic activity/volume] in Serum or Plasma [facility] Automated basophil %Ordered By: Adam Muirarthy on 06-02-2024 Basophils/100 WBC (Bld) 0.9 % Normal . [facility] Comment on above: Performed By: #### R DEVORAH PANEL UPP., BIOFIRECOVNOTDE #### [address] Automated basophil countOrde red By: Adamelvi Pierce on 06-02-2024 Basophils (Bld) [#/Vol] 0.1 10*3/uL Normal 0.0-0.2 [facility] Comment on above: Result Comment: PERF ORMED BY: [place] [address] PATHOLOGIST MANAGER [employer]PER[employer] KAMALA SIMON M.D. Performed By: #### R DEVORAH PANEL UPP., BIOFIRECOVNOTDE #### [address] Automated blood monocyte cou ntOrdered By: Adam Pierce on 06-02-2024 Monocytes (Bld) [#/Vol] 0.4 10*3/uL Normal 0.0-0.8 [facility] Comment on above: Performed By: #### R DEVORAH PANEL UPP., BIOFIRECOVNOTDE #### [address] Automated eosinophil %Ordere d By: Adam Pierce on 06-02-2024 Eosinophils/100 WBC (Bld) 3.4 % Normal . [facility] Comment on above: Performed By: #### R DEVORAH PANEL UPP., BIOFIRECOVNOTDE #### [address] Automated eosinophil countOr dered By: Adam Pierce on 06-02-2024 Eosinophils (Bld) [#/Vol] 0.2 10*3/uL Normal 0.0-0.45 [facility] Comment on above: Performed By: #### R DEVORAH PANEL UPP., BIOFIRECOVNOTDE #### [address] [address] [place] Automated monocyte %Ordered By: Adam Pierce on 06-02-2024 Monocytes/100 WBC (Bld) 7.3 % Normal . [facility] Comment on above: Performed By: #### R DEVORAH PANEL UPP., BIOFIRECOVNOTDE #### [facility] [address] [place] [address] Automated neutrophil %Ordere d By: Adam Pierce on 06-02-2024 Neutrophils/100 WBC (Bld) 63.5 % Normal . [facility] Comment on above: Performed By: #### R DEVORAH PANEL UPP., BIOFIRECOVNOTDE #### [facility] [address] [place] [address] BNP ser/plasOrdered By: Justo Pierce on 06-02-2024 Natriuretic peptide B (Bld) [Mass/Vol] 17.0 pg/mL Normal 5-100 [facility] Comment on above: Result Comment: PERF ORMED BY: [place] [address] PATHOLOGIST MANAGER [employer]PER[employer] KAMALA SIMON M.D. Performed By: #### R DEVORAH PANEL UPP., BIOFIRECOVNOTDE #### [facility] [address] [place] [address] Bacteria [Presence] in Urine by AutomatedOrdered By: Adam Pierce on 06-02-2024 Bacteria Auto Ql (U) Rare [HPF] None Seen [facility] Bacteria Auto Ql (U) Bacteria [Presence] in Urine by Automated None Seen [facility] Basophils Auto (Bld) [#/Vol] Ordered By: Adam Pierce on 06-02-2024 Basophils (Bld) [#/Vol] Automated basophil count 0.0-0.2 [facility] Basophils/100 WBC Auto (Bld) Ordered By: Adam Pierce on 06-02-2024 Basophils/100 WBC (Bld) Automated basophil % . [facility] Bilirubin Test strip Ql (U)O rdered By: Adam Pierce on 06-02-2024 Bilirubin Ql (U) Negative Negative [facility] Bilirubin Ql (U) Bilirubin.total [Presence] in Urine by Test strip Negative [facility] Bilirubin.total [Mass/volume ] in Serum or PlasmaOrdered By: Adam Pierce on 06-02-2024 Bilirubin [Mass/Vol] 0.5 mg/dL Normal 0.3-1.0 [facility] Comment on above: Performed By: #### R DEVORAH PANEL UPP., BIOFIRECOVNOTDE #### [address] Bilirubin [Mass/Vol] Bilirubin.total [Mass/volume] in Serum or Plasma 0.3-1.[address] [facility] CT head/brain wo conon 06-02 CT head/brain wo con [facility] [place] [address] [place] [address] CT Scan Report Signed Patient: Jennifer Rothman MR#: [id number] 5 : 1960 Acct:[id number] Age/Sex: 63 / F ADM Date: 06/02/24 Loc: ER Room: Type: [facility] ER Attending Dr: Copies to: Adam Pierce DO Ordering Provider: Adam Pierce DO Date of Service: 06/02/24 CT/CT head/brain wo con: gen weakness, dizziness w/ ambulation CT BRAIN WITHOUT CONTRAST: CLINICAL HISTORY: Weakness, dizziness and difficulty ambulating COMPARISON: 02/29/2024 TECHNIQUE: Contiguous axial unenhanced images were obtained through the brain. This CT exam was performed using one or more following dose reduction techniques: Automated exposure control, adjustment of the mA and/or kV according to patient size, or use of iterative reconstruction technique. FINDINGS: There is generalized atrophy. The ventricles are normal in size and position. Mild microvascular changes are noted including old right basal ganglia lacunar infarcts. There are no additional areas of abnormal attenuation. There is no hemorrhage, mass effect or extra-axial collections. There is suspected empty sella. The imaged paranasal sinuses are clear. There are a few inferior right mastoid air cells which are opacified. There is vertebral artery and carotid siphon plaque. CT/CT head/brain wo con IMPRESSION: ATROPHY AND CHRONIC MICROVASCULAR CHANGES. NO ACUTE INTRACRANIAL ABNORMALITY. Impression dictated by: Jennifer Camp M.D.06/02/2024 12:59 PM Dictation Location: [place] [address] Transcribed By: FELECIA 06/02/24 1259 Dictated By: Jennifer Camp MD 06/02/24 1256 Signed By: 06/02/24 1259 Normal [facility] Calcium [Mass/volume] in Ser um or PlasmaOrdered By: Adam Pierce on 06-02-2024 Calcium [Mass/Vol] 9.0 mg/dL Normal 8.6-10.3 [facility] Comment on above: Performed By: #### R DEVORAH PANEL UPP., BIOFIRECOVNOTDE #### [facility] [address] Calcium [Mass/Vol] Calcium [Mass/volume ] in Serum or Plasma 8.6-10.3 [facility] Carbon dioxide, total [Moles /volume] in Serum or PlasmaOrdered By: Adam Pierce on 06-02-2024 CO2 [Moles/Vol] 24.9 mmol/L Normal 21.0-31.0 [facility] Comment on above: Performed By: #### R DEVORAH PANEL UPP., BIOFIRECOVNOTDE #### [address] CO2 [Moles/Vol] Carbon dioxide, tota l [Moles/volume] in Serum or Plasma 21.0-31.0 [facility] Casts [Presence] in Urine by AutomatedOrdered By: Adam Pierce on 06-02-2024 Casts Auto Ql (U) 5-9 [LPF] High None Seen [facility] Casts Auto Ql (U) Casts [Presence] in Urine by Automated High None Seen [facility] Chloride [Moles/volume] in S marco antonio or PlasmaOrdered By: Adam Pierce on 06-02-2024 Chloride [Moles/Vol] 103 mmol/L Normal 98-107 [facility] Comment on above: Performed By: #### R DEVORAH PANEL UPP., BIOFIRECOVNOTDE #### [address] Chloride [Moles/Vol] Chloride [Moles/vol ume] in Serum or Plasma 98-107 [facility] Color Auto (U)Ordered By: Giselle Pierce on 06-02-2024 Color (U) Color of Urine by Auto Yellow [facility] Color of Urine by AutoOrdere d By: Adam Pierce on 06-02-2024 Color (U) Colorless Normal Yellow [facility] Comment on above: Order Comment: Name Collection Type:: Clean-Voided Midstream Performed By: #### C BCNO, BMP #### [address] Complete Blood Count Auto Di ffon 06-02-2024 Mean Corpuscular HGB Conc 33.1 g/dL Normal 32.0-35.0 [facility] Comment on above: Performed By: #### R DEVORAH PANEL UPP., BIOFIRECOVNOTDE #### [address] Monocytes/100 WBC (Bld) 16.46 % Normal 0.00-20.00 [facility] Comment on above: Performed By: #### R DEVORAH PANEL UPP., BIOFIRECOVNOTDE #### [address] NRBC% 0.1 /100{WBC} Normal 0-0.5 [facility] Comment on above: Performed By: #### R DEVORAH PANEL UPP., BIOFIRECOVNOTDE #### [address] Comprehensive Metabolic Pane demetria 06-02-2024 Albumin [Mass/Vol] 4.0 g/dL Normal 3.5-5.7 [facility] Comment on above: Performed By: #### R DEVORAH PANEL UPP., BIOFIRECOVNOTDE #### [address] Creatinine Clr Calc Pharmacy 88.93 Normal [facility] Comment on above: Performed By: #### R DEVORAH PANEL UPP., BIOFIRECOVNOTDE #### [facility] [address] GFR/1.73 sq M.predicted MDRD (S/P/Bld) [Vol rate/Area] mL/min/{1.73_m2} Normal [facility] Comment on above: Performed By: #### R DEVORAH PANEL UPP., BIOFIRECOVNOTDE #### [address] Creatinine [Mass/volume] in Serum or PlasmaOrdered By: Adam Pierce on 06-02-2024 Creatinine [Mass/Vol] 0.80 mg/dL Normal 0.60-1.20 [facility] Comment on above: Performed By: #### R DEVORAH PANEL UPP., BIOFIRECOVNOTDE #### [address] Creatinine [Mass/Vol] Creatinine [Mass/v olume] in Serum or Plasma 0.60-1.20 [facility] D-Dimer High Sensitivityon 0 06-02-2024 D-Dimer High Sensitivity < 200 Normal 0-243 [facility] Comment on above: Result Comment: The reference range for D-dimer is <243 ng/mL D-dimer units. D-dimer results must be used in conjunction with a clinical pretest probability (PTP) assessment model for deep vein thrombosis (DVT) and pulmonary embolism (PE). Results <230 ng/mL d-dimer units can be used as a negative predictor in patients with low or moderate probability for DVT/PE. Results above the exclusion threshold of 230 ng/ml D-dimer units for DVT/PE may indicate the need for further diagnostic testing. D-Dimer can be increased in hospitalized patients due to co-morbid conditions. A hematocrit value greater than 55% may lead to inaccurate results in coagulation testing. Patients having hematocrit values >55% require a special collection tube for coagulation studies. Please contact the laboratory at [phone] for redraw instructions. PERFORMED BY: [place] [address] PATHOLOGIST MANAGER [employer]PERATIONS JIANLAN SUN M.D. Performed By: #### G LULS #### Point of Care testing , Dipstick and Microscopicon 0 06-02-2024 Bacteria,Urine Rare Normal None Seen [facility] Comment on above: Order Comment: Name Collection Type:: Clean-Voided Midstream Performed By: #### C BCNO, BMP #### [facility] [address] [place] [address] [place] Bilirubin,Urine Negative Normal Negative [facility] Comment on above: Order Comment: Name Collection Type:: Clean-Voided Midstream Performed By: #### C BCNO, BMP #### [facility] [address] Glucose Ql (U) Normal Normal Normal [facility] Comment on above: Order Comment: Name Collection Type:: Clean-Voided Midstream Performed By: #### C BCNO, BMP #### [facility] [address] [place] [address] [place] Hyaline Casts,Urine 0-8 Normal 0-8 [facility] Comment on above: Order Comment: Name Collection Type:: Clean-Voided Midstream Performed By: #### C BCNO, BMP #### [place] [address] [place] Mucus,Urine Rare Normal [facility] Comment on above: Order Comment: Name Collection Type:: Clean-Voided Midstream Result Comment: PERF ORMED BY: [place] [address] PATHOLOGIST MANAGER [employer] KAMALA SIMON M.D. Performed By: #### C BCNO, BMP #### [facility] [address] [place] [address] [place] Nitrite,Urine Negative Normal Negative [facility] Comment on above: Order Comment: Name Collection Type:: Clean-Voided Midstream Performed By: #### C BCNO, BMP #### [facility] [address] [place] [address] [place] Non-Squamous Epithelial Cell,U 3-4 High None Seen [facility] Comment on above: Order Comment: Name Collection Type:: Clean-Voided Midstream Performed By: #### C BCNO, BMP #### [place] [address] [place] Occult Blood,Urine Negative Normal Negative [facility] Comment on above: Order Comment: Name Collection Type:: Clean-Voided Midstream Result Comment: PERF ORMED BY: [place] [address] PATHOLOGIST MANAGER [employer] KAMALA SIMON M.D. Performed By: #### C BCNO, BMP #### [place] [address] [place] Other Casts,Urine 5-9 High None Seen [facility] Comment on above: Order Comment: Name Collection Type:: Clean-Voided Midstream Performed By: #### C BCNO, BMP #### [place] [address] [place] Protein,Urine Negative Normal Negative [facility] Comment on above: Order Comment: Name Collection Type:: Clean-Voided Midstream Performed By: #### C BCNO, BMP #### [place] [address] [place] RBC,Urine 3-4 Normal 0-4 [facility] Comment on above: Order Comment: Name Collection Type:: Clean-Voided Midstream Performed By: #### C BCNO, BMP #### [place] [address] [place] Specificy Lefor,Urine 1.005 Normal 1.001-1.03 0 [facility] Comment on above: Order Comment: Name Collection Type:: Clean-Voided Midstream Performed By: #### C BCNO, BMP #### [place] [address] [place] Squamous Epithelial Cell,Urine 5-9 High 0-2 [facility] Comment on above: Order Comment: Name Collection Type:: Clean-Voided Midstream Performed By: #### C BCNO, BMP #### [place] [address] [place] Urobilinogen,Urine Normal Normal Normal [facility] Comment on above: Order Comment: Name Collection Type:: Clean-Voided Midstream Performed By: #### C BCNO, BMP #### [facility] [address] [place] [address] [place] WBC,Urine 5-9 High 0-4 [facility] Comment on above: Order Comment: Name Collection Type:: Clean-Voided Midstream Performed By: #### C BCNO, BMP #### [facility] [address] [place] [address] [place] ECG 12 lead ECGon 06-02-2024 ECG 12 lead ECG [facility] [place] [address] Electrocardiograph Report Signed Patient: Jennifer Rothman MR#: [id number] 5 : 1960 Acct:[id number] Age/Sex: 63 / F ADM Date: 06/02/24 Loc: ER Room: Type: [facility] ER Attending Dr: Ordering Provider: Adam Pierce DO Date of Service: 06/02/2408/15/1209 ECG/ECG 12 lead ECG: Weakness Copies to: Test Reason : Blood Pressure : 131/58 mmHG Vent. Rate : 60 BPM Atrial Rate : 60 BPM P-R Int : 180 ms QRS Dur : 96 ms QT Int : 486 ms P-R-T Axes : 0 86 99 degrees QTcB Int : 486 ms Normal sinus rhythm Nonspecific T wave abnormality Confirmed by Adam Pierce DO ([id number]) on 06/02/2024 7:51:53 PM Referred By: Electronically Signed By: Adam Pierce DO Transcribed By: MUS Signed By Adam Pierce DO 1950 Normal [facility] ECG 12 lead ECG [facility] [place] [address] Electrocardiograph Report Signed Patient: Jennifer Rothman MR#: [id number] 5 : 1960 Acct:[id number] Age/Sex: 63 / F ADM Date: 06/02/24 Loc: ER Room: Type: [facility] ER Attending Dr: Ordering Provider: Adam Pierce DO Date of Service: 06/02/2408/15/1120 ECG/ECG 12 lead ECG: Weakness Copies to: Test Reason : Blood Pressure : 108/60 mmHG Vent. Rate : 66 BPM Atrial Rate : 66 BPM P-R Int : 168 ms QRS Dur : 88 ms QT Int : 528 ms P-R-T Axes : -23 81 95 degrees QTcB Int : 553 ms Normal sinus rhythm Nonspecific ST and T wave abnormality Prolonged QT Confirmed by Adam Pierce DO ([id number]) on 06/02/2024 7:53:37 PM Referred By: Electronically Signed By: Adam Pierce DO Transcribed By: MUS Signed By Adam Pierce DO 1952 Normal [facility] Eosinophils Auto (Bld) [#/Vo l]Ordered By: Adam Pierce on 06-02-2024 Eosinophils (Bld) [#/Vol] Automated eosinophil count 0.0-0.45 [facility] Eosinophils/100 WBC Auto (Bl d)Ordered By: Adam Pierce on 06-02-2024 Eosinophils/100 WBC (Bld) Automated eosinophil % . [facility] Epithelial cells.non-squamou s [#/area] in Urine sediment by Automated countOrdered By: Adam Pierce on 06-02-2024 Epithelial cells.non-squamous Auto (Urine sed) [#/Area] 3-4 [HPF] High None Seen [facility] Epithelial cells.non-squamous Auto (Urine sed) [#/Area] Epithelial cells.non-squamous [#/area] in Urine sediment by Automated count High None Seen [facility] Epithelial cells.squamous [# /area] in Urine sediment by Automated countOrdered By: Adam Pierce on 06-02-2024 Epithelial cells.squamous Auto (Urine sed) [#/Area] 5-9 [HPF] High 0-2 [facility] Epithelial cells.squamous Auto (Urine sed) [#/Area] Epithelial cells.squamous [#/area] in Urine sediment by Automated count High 0-2 [facility] Erythrocyte distribution wid th Auto (RBC) [Ratio]Ordered By: Adam Pierce on 06-02-2024 Erythrocyte distribution width (RBC) [Ratio] Erythrocyte distribution width [Ratio] by Automated count 11.9-15.3 [facility] Erythrocyte distribution wid th [Ratio] by Automated countOrdered By: Adam Muirarthy on 06-02-2024 Erythrocyte distribution width (RBC) [Ratio] 14.4 % Normal 11.9-15.3 [facility] Comment on above: Performed By: #### R DEVORAH PANEL UPP., BIOFIRECOVNOTDE #### [facility] [address] Erythrocytes [#/area] in Uri ne sediment by Automated countOrdered By: Adam Pierce on 06-02-2024 RBC Auto (Urine sed) [#/Area] 3-4 [HPF] 0-4 [facility] RBC Auto (Urine sed) [#/Area] Erythrocytes [#/area] in Urine sediment by Automated count 0-4 [facility] Erythrocytes [#/volume] in B lood by Automated countOrdered By: Adam Pierce on 06-02-2024 RBC (Bld) [#/Vol] 4.41 10*6/uL Normal 3.60-5.00 [facility] Comment on above: Performed By: #### R DEVORAH PANEL UPP., BIOFIRECOVNOTDE #### [facility] [address] Fibrin D-dimer [Presence] in Platelet poor plasma by Latex agglutinationOrdered By: Adam Pierce on 06-02-2024 Fibrin D-dimer LA Ql (PPP) < 200 ng/mL 0-243 [facility] Comment on above: The reference range for D-dimer is <243 ng/mL D-dimer units.D-dimer results must be used in conjunction with a clinicalpretest probability (PTP) assessment model for deep veinthrombosis (DVT) and pulmonary embolism (PE). Results <230ng/mL d-dimer units can be used as a negative predictor inpatients with low or moderate probability for DVT/PE.Results above the exclusion threshold of 230 ng/ml D-dimerunits for DVT/PE may indicate the need for furtherdiagnostic testing.D-Dimer can be increased in hospitalized patients due toco-morbid conditions.A hematocrit value greater than 55% may lead to inaccurate results in coagulation testing. Patients having hematocrit values >55% require a special collection tube for coagulation studies. Please contact the laboratory at [phone] for redraw instructions. Fibrin D-dimer LA Ql (PPP) Fibrin D-dimer [Presence] in Platelet poor plasma by Latex agglutination 0-243 [facility] Comment on above: The reference range for D-dimer is <243 ng/mL D-dimer units.D-dimer results must be used in conjunction with a clinicalpretest probability (PTP) assessment model for deep veinthrombosis (DVT) and pulmonary embolism (PE). Results <230ng/mL d-dimer units can be used as a negative predictor inpatients with low or moderate probability for DVT/PE.Results above the exclusion threshold of 230 ng/ml D-dimerunits for DVT/PE may indicate the need for furtherdiagnostic testing.D-Dimer can be increased in hospitalized patients due toco-morbid conditions.A hematocrit value greater than 55% may lead to inaccurate results in coagulation testing. Patients having hematocrit values >55% require a special collection tube for coagulation studies. Please contact the laboratory at [phone] for redraw instructions. Globulin Calc (S) [Mass/Vol] Ordered By: Adam Pierce on 06-02-2024 Globulin (S) [Mass/Vol] Serum globulin measurement by calculation (mass/volume) [facility] Glucose [Mass/volume] in Ser um or PlasmaOrdered By: Adam Pierce on 06-02-2024 Glucose [Mass/Vol] 118 mg/dL High 70-100 [facility] Comment on above: ADA recommended refe rence rangeRandom Glucose Reference Range is dependent on time and content of last meal. Glucose of more than 200 mg/dL in a nonstressed, ambulatory subject supports the diagnosis of Diabetes Mellitus. Result Comment: [place] om Glucose Reference Range is dependent on time and content of last meal. Glucose of more than 200 mg/dL in a nonstressed, ambulatory subject supports the diagnosis of Diabetes Mellitus. ADA recommended reference range Performed By: #### R DEVORAH PANEL UPP., BIOFIRECOVNOTDE #### [address] Glucose [Mass/Vol] Glucose [Mass/volume ] in Serum or Plasma High 70-100 [facility] Comment on above: ADA recommended refe rence rangeRandom Glucose Reference Range is dependent on time and content of last meal. Glucose of more than 200 mg/dL in a nonstressed, ambulatory subject supports the diagnosis of Diabetes Mellitus. Glucose [Mass/volume] in Uri ne by Test stripOrdered By: Adam Pierce on 06-02-2024 Glucose Test strip (U) [Mass/Vol] Normal mg/dL Normal [facility] Glucose Test strip (U) [Mass/Vol] Glucose [Mass/volume] in Urine by Test strip Normal [facility] Hematocrit Auto (Bld) [Volum e fraction]Ordered By: Adam Pierce on 06-02-2024 Hematocrit (Bld) [Volume fraction] Hematocrit [Volume Fraction] of Blood by Automated count 34.0-46.4 [facility] Hematocrit [Volume Fraction] of Blood by Automated countOrdered By: Adam Pierce on 06-02-2024 Hematocrit (Bld) [Volume fraction] 39.0 % Normal 34.0-46.4 [facility] Comment on above: Performed By: #### R DEVORAH PANEL UPP., BIOFIRECOVNOTDE #### [facility] [address] Hemoglobin Test strip Ql (U) Ordered By: Adam Pierce on 06-02-2024 Hemoglobin Ql (U) Negative Negative [facility] Hemoglobin Ql (U) Hemoglobin [Presence ] in Urine by Test strip Negative [facility] Hemoglobin [Mass/volume] in BloodOrdered By: Adam Pierce on 06-02-2024 Hemoglobin (Bld) [Mass/Vol] 12.9 g/dL Normal 11.8-15.4 [facility] Comment on above: Performed By: #### R DEVORAH PANEL UPP., BIOFIRECOVNOTDE #### [facility] [address] [place] [address] [place] Hemoglobin (Bld) [Mass/Vol] Hemoglobin [Mass/volume] in Blood 11.8-15.4 [facility] Hyaline casts [#/area] in Ur ine sediment by Automated countOrdered By: Adam Pierce on 06-02-2024 Hyaline casts Auto (Urine sed) [#/Area] 0-8 [LPF] 0-8 [facility] Hyaline casts Auto (Urine sed) [#/Area] Hyaline casts [#/area] in Urine sediment by Automated count 0-8 [facility] INR in Platelet poor plasma by Coagulation assayOrdered By: Adam Pierce on 06-02-2024 INR Coag (PPP) [Relative time] 1.0 {INR} Normal [facility] Comment on above: INR Therapeutic Rang e A) Pre- and Peroperative OAT started two weeks before surgery. NOT HIP SURGERY: 1.5 - 2.5 HIP SURGERY: 2 - 3B) Primary and secondary prevention of venous THROMBOSIS: 2 - 3C) Active venous thrombosis, pulmonary embolismand prevention of recurrent venous thrombosis: 2 - 3D) Prevention of arterial thromboembolismincluding patients with mechanical heart valves: 3 - 4.5 Result Comment: INR Therapeutic Range A) Pre- and Peroperative OAT started two weeks before surgery. NOT HIP SURGERY: 1.5 - 2.5 HIP SURGERY: 2 - 3 B) Primary and secondary prevention of venous THROMBOSIS: 2 - 3 C) Active venous thrombosis, pulmonary embolism and prevention of recurrent venous thrombosis: 2 - 3 D) Prevention of arterial thromboembolism including patients with mechanical heart valves: 3 - 4.5 Performed By: #### G LULS #### Point of Care testing , INR Coag (PPP) [Relative time] INR in Platelet poor plasma by Coagulation assay [facility] Comment on above: INR Therapeutic Rang e A) Pre- and Peroperative OAT started two weeks before surgery. NOT HIP SURGERY: 1.5 - 2.5 HIP SURGERY: 2 - 3B) Primary and secondary prevention of venous THROMBOSIS: 2 - 3C) Active venous thrombosis, pulmonary embolismand prevention of recurrent venous thrombosis: 2 - 3D) Prevention of arterial thromboembolismincluding patients with mechanical heart valves: 3 - 4.5 Ketones Test strip Ql (U)Ord ered By: Adam Pierce on 06-02-2024 Ketones Ql (U) Ketones [Presence] i n Urine by Test strip Negative [facility] Ketones [Presence] in Urine by Test stripOrdered By: Adam Pierce on 06-02-2024 Ketones Ql (U) Negative Normal Negative [facility] Comment on above: Order Comment: Name Collection Type:: Clean-Voided Midstream Performed By: #### C BCNO, BMP #### [facility] [address] Leukocyte esterase [Presence ] in Urine by Test stripOrdered By: Adam Pierce on 06-02-2024 Leukocyte esterase Test strip Ql (U) 3+ High Negative [facility] Comment on above: Order Comment: Name Collection Type:: Clean-Voided Midstream Performed By: #### C BCNO, BMP #### [facility] [address] Leukocyte esterase Test strip Ql (U) Leukocyte esterase [Presence] in Urine by Test strip High Negative [facility] Leukocytes [#/area] in Urine sediment by Automated countOrdered By: Adam Pierce on 06-02-2024 WBC Auto (Urine sed) [#/Area] 5-9 [HPF] High 0-4 [facility] WBC Auto (Urine sed) [#/Area] Leukocytes [#/area] in Urine sediment by Automated count High 0-4 [facility] Leukocytes [#/volume] correc janice for nucleated erythrocytes in Blood by Automated counOrdered By: Adam Pierce on 06-02-2024 WBC corrected for nucl RBC Auto (Bld) [#/Vol] 5.6 10*3/uL 3.8-11.6 [facility] WBC corrected for nucl RBC Auto (Bld) [#/Vol] Leukocytes [#/volume] corrected for nucleated erythrocytes in Blood by Automated coun 3.8-11.6 [facility] Leukocytes [#/volume] in Blo od by Automated countOrdered By: Adam Pierce on 06-02-2024 WBC (Bld) [#/Vol] 5.6 10*3/uL Normal 3.8-11.6 [facility] Comment on above: Performed By: #### R DEVORAH PANEL UPP., BIOFIRECOVNOTDE #### [address] Lymphocytes Auto (Bld) [#/Vo l]Ordered By: Adam Pierce on 06-02-2024 Lymphocytes (Bld) [#/Vol] Lymphocytes [#/volume] in Blood by Automated count 1.00-4.8 [facility] Lymphocytes [#/volume] in Bl ood by Automated countOrdered By: Adam Pierce on 06-02-2024 Lymphocytes (Bld) [#/Vol] 1.4 10*3/uL Normal 1.00-4.8 [facility] Comment on above: Performed By: #### R DEVORAH PANEL UPP., BIOFIRECOVNOTDE #### [facility] [address] [place] [address] Lymphocytes/100 WBC Auto (Bl d)Ordered By: Adam Pierce on 06-02-2024 Lymphocytes/100 WBC (Bld) Lymphocytes/100 leukocytes in Blood by Automated count . [facility] Lymphocytes/100 leukocytes i n Blood by Automated countOrdered By: Adam Pierce on 06-02-2024 Lymphocytes/100 WBC (Bld) 24.9 % Normal . [facility] Comment on above: Performed By: #### R DEVORAH PANEL UPP., BIOFIRECOVNOTDE #### [address] MCH Auto (RBC) [Entitic mass ]Ordered By: Adam Pierce on 06-02-2024 MCH (RBC) [Entitic mass] MCH [Entitic mass] by Automated count 24.7-34.3 [facility] MCH [Entitic mass] by Automa janice countOrdered By: Adam Pierce on 06-02-2024 MCH (RBC) [Entitic mass] 29.3 pg Normal 24.7-34.3 [facility] Comment on above: Performed By: #### R DEVORAH PANEL UPP., BIOFIRECOVNOTDE #### [facility] [address] [place] [address] MCHC Auto (RBC) [Mass/Vol]Or dered By: Adam Pierce on 06-02-2024 MCHC (RBC) [Mass/Vol] 33.1 g/dL 32.0-35.0 [facility] MCHC (RBC) [Mass/Vol] MCHC [Mass/volume] by Automated count 32.0-35.0 [facility] MCV Auto (RBC) [Entitic vol] Ordered By: Adam Pierce on 06-02-2024 MCV (RBC) [Entitic vol] MCV [Entitic volume] by Automated count 80-100 [facility] MCV [Entitic volume] by Auto mated countOrdered By: Adam Pierce on 06-02-2024 MCV (RBC) [Entitic vol] 88.6 fL Normal 80-100 [facility] Comment on above: Performed By: #### R DEVORAH PANEL UPP., BIOFIRECOVNOTDE #### [address] Monocyte distribution width [Entitic volume] in Blood by AutomatedOrdered By: Adam Pierce on 06-02-2024 Monocyte distribution width Auto (Bld) [Entitic vol] 16.46 % 0.00-20.00 [facility] Monocyte distribution width Auto (Bld) [Entitic vol] Monocyte distribution width [Entitic volume] in Blood by Automated 0.00-20.00 [facility] Monocytes Auto (Bld) [#/Vol] Ordered By: Adam Pierce on 06-02-2024 Monocytes (Bld) [#/Vol] Automated blood monocyte count 0.0-0.8 [facility] Monocytes/100 WBC Auto (Bld) Ordered By: Adam Pierce on 06-02-2024 Monocytes/100 WBC (Bld) Automated monocyte % . [facility] Mucus [Presence] in Urine by AutomatedOrdered By: Adam Pierce on 06-02-2024 Mucus Auto Ql (U) Rare [LPF] [facility] Mucus Auto Ql (U) Mucus [Presence] in Urine by Automated [facility] Natriuretic peptide B [Mass/ Vol]Ordered By: Adam Pierce on 06-02-2024 Natriuretic peptide B (Bld) [Mass/Vol] BNP ser/plas 5-100 [facility] Neutrophils Auto (Bld) [#/Vo l]Ordered By: Adam Pierce on 06-02-2024 Neutrophils (Bld) [#/Vol] Neutrophils [#/volume] in Blood by Automated count 1.8-7.7 [facility] Neutrophils [#/volume] in Bl ood by Automated countOrdered By: Adam Pierce on 06-02-2024 Neutrophils (Bld) [#/Vol] 3.6 10*3/uL Normal 1.8-7.7 [facility] Comment on above: Performed By: #### R DEVORAH PANEL UPP., BIOFIRECOVNOTDE #### [facility] [address] Neutrophils/100 WBC Auto (Bl d)Ordered By: Adam Pierce on 06-02-2024 Neutrophils/100 WBC (Bld) Automated neutrophil % . [facility] Nitrite Test strip Ql (U)Ord ered By: Adam Pierce on 06-02-2024 Nitrite Ql (U) Negative Negative [facility] Nitrite Ql (U) Nitrite [Presence] i n Urine by Test strip Negative [facility] No Panel InformationOrdered By: Adam Pierce on 06-02-2024 Estimated GFR (CKD-EPI) > 60.0 mL/Min [facility] Creatinine Clearance (Chem 88.93 [facility] Nucleated erythrocytes [Pres ence] in Blood by Automated countOrdered By: Adam Pierce on 06-02-2024 Nucleated RBC Auto Ql (Bld) 0.1 /100{WBC} 0-0.5 [facility] Nucleated RBC Auto Ql (Bld) Nucleated erythrocytes [Presence] in Blood by Automated count 0-0.5 [facility] Partial Thromboplastin Timeo n 06-02-2024 aPTT Coag (Bld) [Time] 32.4 s Normal 25.1-36.5 [facility] Comment on above: Result Comment: A he matocrit value greater than 55% may lead to inaccurate results in coagulation testing. Patients having hematocrit values >55% require a special collection tube for coagulation studies. Please contact the laboratory at [phone] for redraw instructions. Performed By: #### G LULS #### Point of Care testing , Platelet mean volume Auto (B ld) [Entitic vol]Ordered By: Adam Pierce on 06-02-2024 Platelet mean volume (Bld) [Entitic vol] Platelet mean volume [Entitic volume] in Blood by Automated count 6.3-10.7 [facility] Platelet mean volume [Entiti c volume] in Blood by Automated countOrdered By: Adam Pierce on 06-02-2024 Platelet mean volume (Bld) [Entitic vol] 9.2 fL Normal 6.3-10.7 [facility] Comment on above: Performed By: #### R DEVORAH PANEL UPP., BIOFIRECOVNOTDE #### [facility] [address] Platelets Auto (Bld) [#/Vol] Ordered By: Adam Pierce on 06-02-2024 Platelets (Bld) [#/Vol] Platelets [#/volume] in Blood by Automated count 150-450 [facility] Platelets [#/volume] in Bloo d by Automated countOrdered By: Adam Pierce on 06-02-2024 Platelets (Bld) [#/Vol] 204 10*3/uL Normal 150-450 [facility] Comment on above: Performed By: #### R DEVORAH PANEL UPP., BIOFIRECOVNOTDE #### [place] [address] [place] Potassium [Moles/volume] in Serum or PlasmaOrdered By: Adam Pierce on 06-02-2024 Potassium [Moles/Vol] 4.0 mmol/L Normal 3.5-5.1 [facility] Comment on above: Performed By: #### R DEVORAH PANEL UPP., BIOFIRECOVNOTDE #### [address] Potassium [Moles/Vol] Potassium [Moles/v olume] in Serum or Plasma 3.5-5.1 [facility] Protein Test strip (U) [Mass /Vol]Ordered By: Adam Pierce on 06-02-2024 Protein (U) [Mass/Vol] Negative Negative [facility] Protein (U) [Mass/Vol] Protein [Mass/vol ume] in Urine by Test strip Negative [facility] Protein [Mass/volume] in Ser um or PlasmaOrdered By: Adam Pierce on 06-02-2024 Protein [Mass/Vol] 6.1 g/dL Low 6.4-8.9 [facility] Comment on above: Performed By: #### R DEVORAH PANEL UPP., BIOFIRECOVNOTDE #### [facility] [address] Protein [Mass/Vol] Protein [Mass/volume ] in Serum or Plasma Low 6.4-8.9 [facility] Prothrombin time (PT)Ordered By: Adam Pierce on 06-02-2024 PT Coag (PPP) [Time] 11.5 s Normal 9.0-12.9 [facility] Comment on above: A hematocrit value g reater than 55% may lead to inaccurate results in coagulation testing. Patients having hematocrit values >55% require a special collection tube for coagulation studies. Please contact the laboratory at [phone] for redraw instructions. Result Comment: A he matocrit value greater than 55% may lead to inaccurate results in coagulation testing. Patients having hematocrit values >55% require a special collection tube for coagulation studies. Please contact the laboratory at [phone] for redraw instructions. Performed By: #### G LULS #### Point of Care testing , PT Coag (PPP) [Time] Prothrombin time (PT) 9.0- 12.9 [facility] Comment on above: A hematocrit value g reater than 55% may lead to inaccurate results in coagulation testing. Patients having hematocrit values >55% require a special collection tube for coagulation studies. Please contact the laboratory at [phone] for redraw instructions. RBC Auto (Bld) [#/Vol]Ordere d By: Adam Pierce on 06-02-2024 RBC (Bld) [#/Vol] Erythrocytes [#/volu me] in Blood by Automated count 3.60-5.00 [facility] Serum globulin measurement b y calculation (mass/volume)Ordered By: Adam Pierce on 06-02-2024 Globulin (S) [Mass/Vol] 2.1 g/dL Normal [facility] Comment on above: Performed By: #### R DEVORAH PANEL UPP., BIOFIRECOVNOTDE #### [address] Serum or plasma albumin/glob ulin mass ratioOrdered By: Adam Pierce on 06-02-2024 Albumin/Globulin [Mass ratio] 1.9 {ratio} Normal [facility] Comment on above: Performed By: #### R DEVORAH PANEL UPP., BIOFIRECOVNOTDE #### [address] Albumin/Globulin [Mass ratio] Serum or plasma albumin/globulin mass ratio [facility] Serum or plasma anion gap de terminationOrdered By: Adam Pierce on 06-02-2024 Anion gap [Moles/Vol] 14.1 mmol/L Normal 6.0-15.0 [facility] Comment on above: Performed By: #### R DEVORAH PANEL UPP., BIOFIRECOVNOTDE #### [address] Anion gap [Moles/Vol] Serum or plasma an ion gap determination 6.0-15.0 [facility] Sodium [Moles/volume] in Ser um or PlasmaOrdered By: Adam Pierce on 06-02-2024 Sodium [Moles/Vol] 138 mmol/L Normal 136-145 [facility] Comment on above: Performed By: #### R DEVORAH PANEL UPP., BIOFIRECOVNOTDE #### [address] Sodium [Moles/Vol] Sodium [Moles/volume ] in Serum or Plasma 136-145 [facility] Specific gravity Test strip (U) [Rel density]Ordered By: Adam Pierce on 06-02-2024 Specific gravity (U) [Rel density] 1.005 1.001-1.03 0 [facility] Specific gravity (U) [Rel density] Specific gravity of Urine by Test strip 1.001-1.03 0 [facility] Thyrotropin [Units/volume] i n Serum or PlasmaOrdered By: Adam Pierce on 06-02-2024 TSH Qn 1.77 m[IU]/L Normal 0.45-5.33 [facility] Comment on above: Result Comment: PERF ORMED BY: [place] [address] PATHOLOGIST MANAGER FLIGHT OPERATIONS KAMALA SIMON M.D. Performed By: #### R DEVORAH PANEL UPP., BIOFIRECOVNOTDE #### [address] TSH Qn Thyrotropin [Units/volume] in Serum or Plasma 0.45-5.33 [facility] Troponin I High Sensitivityo n 06-02-2024 Troponin I High Sensitivity 3.1 pg/mL Normal 0.0-15.0 [facility] Comment on above: Result Comment: PERF ORMED BY: [place] [address] PATHOLOGIST MANAGER FLIGHT OPERATIONS KAMALA SIMON M.D. Performed By: #### R DEVORAH PANEL UPP., BIOFIRECOVNOTDE #### [address] Troponin I.cardiac [Mass/vol ume] in Serum or Plasma by Detection limit <= 0.01 ng/Ordered By: Adam Pierce on 06-02-2024 Troponin I.cardiac DL <= 0.01 ng/mL [Mass/Vol] 3.1 pg/mL 0.0-15.0 [facility] Troponin I.cardiac DL <= 0.01 ng/mL [Mass/Vol] Troponin I.cardiac [Mass/volume] in Serum or Plasma by Detection limit <= 0.01 ng/ 0.0-15.0 [facility] Urea nitrogen [Mass/volume] in Serum or PlasmaOrdered By: Adam Pierce on 06-02-2024 Urea nitrogen [Mass/Vol] 7 mg/dL Normal 04-15 [facility] Comment on above: Performed By: #### R DEVORAH PANEL UPP., BIOFIRECOVNOTDE #### [address] Urea nitrogen [Mass/Vol] Urea nitrogen [Mass/volume] in Serum or Plasma 04-15 [facility] Urine Cultureon 06-02-2024 Bacteria identified Cx Nom (U) 25,000 colonies/ml mixed bacterial skin contaminants 2 Days PERFORMED BY: [place] [address] PATHOLOGIST MANAGER FL[employer]PERATIONS KAMALA Bolden [facility] Comment on above: Performed By: #### C BCNO, BMP #### [facility] [address] [place] [address] Urine appearanceOrdered By: Adam Pierce on 06-02-2024 Appearance (U) Clear Normal Clear [facility] Comment on above: Order Comment: Name Collection Type:: Clean-Voided Midstream Performed By: #### C BCNO, BMP #### [address] Urine cultureOrdered By: Raúl Pierce on 06-02-2024 Bacteria identified Cx Nom (U) Urine culture [facility] Urine culture routineOrdered By: Adam Pierce on 06-02-2024 Bacteria identified Cx Nom (U) 2 Days [facility] Urobilinogen Test strip (U) [Mass/Vol]Ordered By: Adam Pierce on 06-02-2024 Urobilinogen (U) [Mass/Vol] Normal mg/dL Normal [facility] Urobilinogen (U) [Mass/Vol] Urobilinogen [Mass/volume] in Urine by Test strip Normal [facility] WBC Auto (Bld) [#/Vol]Ordere d By: Adam Pierce on 06-02-2024 WBC (Bld) [#/Vol] Leukocytes [#/volume ] in Blood by Automated count 3.8-11.6 [facility] XR chest 1V portableon 06-02 XR chest 1V portable [facility] [place] [address] XRay Report Signed Patient: Jennifer Rothman MR#: [id number] 5 : 1960 Acct:[id number] Age/Sex: 63 / F ADM Date: 06/02/24 Loc: ER Room: Type: REG ER Attending Dr: Copies to: Adam Pierce DO Ordering Provider: Adam Pierce DO Date of Service: 06/02/24 XR/XR chest 1V portable: Weakness XR chest 1V portable 06/02/2024 11:21 AM SIGNS AND SYMPTOMS: Difficulty walking PROTOCOL: Frontal radiograph of the chest COMPARISON: 04/16/2023 FINDINGS: The trachea is midline. The heart and mediastinal structures are within normal limits. The lung parenchyma is clear. The bony thorax is intact. Degenerative changes are noted in the shoulders and thoracic spine. Postoperative changes are noted in the right shoulder. XR/XR chest 1V portable IMPRESSION: No acute cardiopulmonary pathology. Impression dictated by: Woodrow Sahni M.D.06/02/2024 11:38 AM Dictation Location: [place] [address] Transcribed By: FELECIA 06/02/24 1138 Dictated By: Woodrow Sahni II, MD 06/02/24 1137 Signed By: 06/02/24 1138 Normal [facility] aPTT in Platelet poor plasma by Coagulation assayOrdered By: Adam Pierce on 06-02-2024 aPTT Coag (PPP) [Time] Activated partial thromboplastin time (aPTT) in platelet poor plasma by coagulation a 25.1-36.5 [facility] Comment on above: A hematocrit value g reater than 55% may lead to inaccurate results in coagulation testing. Patients having hematocrit values >55% require a special collection tube for coagulation studies. Please contact the laboratory at [phone] for redraw instructions. pH Test strip (U)Ordered By: Adam Pierce on 06-02-2024 pH (U) pH of Urine by Test strip 5.0-9.0 [facility] pH of Urine by Test stripOrd ered By: Adam Pierce on 06-02-2024 pH (U) 6.0 [pH] Normal 5.0-9.0 [facility] Comment on above: Order Comment: Name Collection Type:: Clean-Voided Midstream Performed By: #### C BCNO, BMP #### [address] Appearance of UrineOrdered B y: PROVIDER TEMP on 05-20-2024 Appearance (U) Urine appearance Abnormal Clear [facility] Bacteria [Presence] in Urine by AutomatedOrdered By: PROVIDER TEMP on 05-20-2024 Bacteria Auto Ql (U) Rare [HPF] None Seen [facility] Bacteria Auto Ql (U) Bacteria [Presence] in Urine by Automated None Seen [facility] Bilirubin Test strip Ql (U)O rdered By: PROVIDER TEMP on 05-20-2024 Bilirubin Ql (U) Negative Negative [facility] Bilirubin Ql (U) Bilirubin.total [Presence] in Urine by Test strip Negative [facility] Color Auto (U)Ordered By: [place] ANNELISEER TEMP on 05-20-2024 Color (U) Color of Urine by Auto Yellow [facility] Color of Urine by AutoOrdere d By: PROVIDER TEMP on 05-20-2024 Color (U) Light-yellow Normal Yellow [facility] Comment on above: Order Comment: Name Collection Type:: Clean-Voided Midstream Performed By: #### G LULS #### Point of Care testing , Dipstick and Microscopicon 0 05-20-2024 Bacteria,Urine Rare Normal None Seen [facility] Comment on above: Order Comment: Name Collection Type:: Clean-Voided Midstream Performed By: #### G LULS #### Point of Care testing , Bilirubin,Urine Negative Normal Negative [facility] Comment on above: Order Comment: Name Collection Type:: Clean-Voided Midstream Performed By: #### G LULS #### Point of Care testing , Glucose Ql (U) Normal Normal Normal [facility] Comment on above: Order Comment: Name Collection Type:: Clean-Voided Midstream Performed By: #### G LULS #### Point of Care testing , Hyaline Casts,Urine 0-8 Normal 0-8 [facility] Comment on above: Order Comment: Name Collection Type:: Clean-Voided Midstream Performed By: #### G LULS #### Point of Care testing , Mucus,Urine Rare Normal [facility] Comment on above: Order Comment: Name Collection Type:: Clean-Voided Midstream Result Comment: PERF ORMED BY: [address] [place] [address] PATHOLOGIST MANAGER FL[employer] OPERATIONS KAMALA SIMON M.D. Performed By: #### G LULS #### Point of Care testing , Nitrite,Urine Negative Normal Negative [facility] Comment on above: Order Comment: Name Collection Type:: Clean-Voided Midstream Performed By: #### G LULS #### Point of Care testing , Occult Blood,Urine Negative Normal Negative [facility] Comment on above: Order Comment: Name Collection Type:: Clean-Voided Midstream Result Comment: PERF ORMED BY: [address] [place] [address] PATHOLOGIST MANAGER [employer]PER[employer] KAMALA SIMON M.D. Performed By: #### G LULS #### Point of Care testing , Protein,Urine Negative Normal Negative [facility] Comment on above: Order Comment: Name Collection Type:: Clean-Voided Midstream Performed By: #### G LULS #### Point of Care testing , RBC,Urine 1-2 Normal 0-4 [facility] Comment on above: Order Comment: Name Collection Type:: Clean-Voided Midstream Performed By: #### G LULS #### Point of Care testing , Specificy Lefor,Urine 1.013 Normal 1.001-1.03 0 [facility] Comment on above: Order Comment: Name Collection Type:: Clean-Voided Midstream Performed By: #### G LULS #### Point of Care testing , Squamous Epithelial Cell,Urine 3-4 High 0-2 [facility] Comment on above: Order Comment: Name Collection Type:: Clean-Voided Midstream Performed By: #### G LULS #### Point of Care testing , Urobilinogen,Urine Normal Normal Normal [facility] Comment on above: Order Comment: Name Collection Type:: Clean-Voided Midstream Performed By: #### G LULS #### Point of Care testing , WBC,Urine 3-4 Normal 0-4 [facility] Comment on above: Order Comment: Name Collection Type:: Clean-Voided Midstream Performed By: #### G LULS #### Point of Care testing , Epithelial cells.squamous [# /area] in Urine sediment by Automated countOrdered By: PROVIDER TEMP on 05-20-2024 Epithelial cells.squamous Auto (Urine sed) [#/Area] 3-4 [HPF] High 0-2 [facility] Epithelial cells.squamous Auto (Urine sed) [#/Area] Epithelial cells.squamous [#/area] in Urine sediment by Automated count High 0-2 [facility] Erythrocytes [#/area] in Uri ne sediment by Automated countOrdered By: PROVIDER TEMP on 05-20-2024 RBC Auto (Urine sed) [#/Area] 1-2 [HPF] 0-4 [facility] RBC Auto (Urine sed) [#/Area] Erythrocytes [#/area] in Urine sediment by Automated count 0-4 [facility] Glucose [Mass/volume] in Uri ne by Test stripOrdered By: PROVIDER TEM on 05-20-2024 Glucose Test strip (U) [Mass/Vol] Normal mg/dL Normal [facility] Glucose Test strip (U) [Mass/Vol] Glucose [Mass/volume] in Urine by Test strip Normal [facility] Hemoglobin Test strip Ql (U) Ordered By: PROVIDER TEM on 05-20-2024 Hemoglobin Ql (U) Negative Negative [facility] Hemoglobin Ql (U) Hemoglobin [Presence ] in Urine by Test strip Negative [facility] Hyaline casts [#/area] in Ur ine sediment by Automated countOrdered By: PROVIDER TEM on 05-20-2024 Hyaline casts Auto (Urine sed) [#/Area] 0-8 [LPF] 0-8 [facility] Hyaline casts Auto (Urine sed) [#/Area] Hyaline casts [#/area] in Urine sediment by Automated count 0-8 [facility] Ketones Test strip Ql (U)Ord ered By: PROVIDER TEMP on 05-20-2024 Ketones Ql (U) Ketones [Presence] i n Urine by Test strip Negative [facility] Ketones [Presence] in Urine by Test stripOrdered By: PROVIDER TEMP on 05-20-2024 Ketones Ql (U) Negative Normal Negative [facility] Comment on above: Order Comment: Name Collection Type:: Clean-Voided Midstream Performed By: #### G LULS #### Point of Care testing , Leukocyte esterase [Presence ] in Urine by Test stripOrdered By: PROVIDER TEMP on 05-20-2024 Leukocyte esterase Test strip Ql (U) Negative Normal Negative [facility] Comment on above: Order Comment: Name Collection Type:: Clean-Voided Midstream Performed By: #### G LULS #### Point of Care testing , Leukocyte esterase Test strip Ql (U) Leukocyte esterase [Presence] in Urine by Test strip Negative [facility] Leukocytes [#/area] in Urine sediment by Automated countOrdered By: PROVIDER TEMP on 05-20-2024 WBC Auto (Urine sed) [#/Area] 3-4 [HPF] 0-4 [facility] WBC Auto (Urine sed) [#/Area] Leukocytes [#/area] in Urine sediment by Automated count 0-4 [facility] Mucus [Presence] in Urine by AutomatedOrdered By: PROVIDER TEMP on 05-20-2024 Mucus Auto Ql (U) Rare [LPF] [facility] Mucus Auto Ql (U) Mucus [Presence] in Urine by Automated [facility] Nitrite Test strip Ql (U)Ord ered By: PROVIDER TEMP on 05-20-2024 Nitrite Ql (U) Negative Negative [facility] Nitrite Ql (U) Nitrite [Presence] i n Urine by Test strip Negative [facility] Protein Test strip (U) [Mass /Vol]Ordered By: PROVIDER TEMP on 05-20-2024 Protein (U) [Mass/Vol] Negative Negative [facility] Protein (U) [Mass/Vol] Protein [Mass/vol ume] in Urine by Test strip Negative [facility] Specific gravity Test strip (U) [Rel density]Ordered By: PROVIDER TEMP on 05-20-2024 Specific gravity (U) [Rel density] 1.013 1.001-1.03 0 [facility] Specific gravity (U) [Rel density] Specific gravity of Urine by Test strip 1.001-1.03 0 [facility] Urine appearanceOrdered By: PROVIDER TEMP on 05-20-2024 Appearance (U) Cloudy Critically abnormal Clear [facility] Comment on above: Order Comment: Name Collection Type:: Clean-Voided Midstream Performed By: #### G LULS #### Point of Care testing , Urobilinogen Test strip (U) [Mass/Vol]Ordered By: PROVIDER TEMP on 05-20-2024 Urobilinogen (U) [Mass/Vol] Normal mg/dL Normal [facility] Urobilinogen (U) [Mass/Vol] Urobilinogen [Mass/volume] in Urine by Test strip Normal [facility] pH Test strip (U)Ordered By: PROVIDER TEMP on 05-20-2024 pH (U) pH of Urine by Test strip 5.0-9.0 [facility] pH of Urine by Test stripOrd ered By: PROVIDER TEMP on 05-20-2024 pH (U) 5.5 [pH] Normal 5.0-9.0 [facility] Comment on above: Order Comment: Name Collection Type:: Clean-Voided Midstream Performed By: #### G LULS #### Point of Care testing , Cholesterol [Mass/volume] in Serum or PlasmaOrdered By: Isidro Gonzalez on 04-05-2024 Cholesterol [Mass/Vol] 219 mg/dL High 140-200 [facility] Comment on above: Chol less than 200 m g/dl low riskChol 201-239 mg/dl borderline riskChol 240 mg/dl and greater high risk Result Comment: Chol less than 200 mg/dl low risk Chol 201-239 mg/dl borderline risk Chol 240 mg/dl and greater high risk Performed By: #### G LULS #### Point of Care testing , Cholesterol in LDL Calc [Mas s/Vol]Ordered By: Isidro Gonzalez on 04-05-2024 Cholesterol in LDL [Mass/Vol] 109 mg/dL High 0-100 [facility] Comment on above: LDL ATP III CLASSIFI CATIONLDL less than 100 mg/dL OptimalLDL 100-129 mg/dL Near or above optimalLDL 130-159 mg/dL Borderline highLDL 160-189 mg/dL HighLDL greater than 189 mg/dL Very high Cholesterol in VLDL Calc [Ma ss/Vol]Ordered By: Isidro Gonzalez on 04-05-2024 Cholesterol in VLDL [Mass/Vol] 53 mg/dL [facility] Creatinine [Mass/volume] in UrineOrdered By: Isidro Gonzalez on 04-05-2024 Creatinine (U) [Mass/Vol] 137.00 mg/dL [facility] Comment on above: No reference range e stablished HbA1c HPLC (Bld) [Mass fract ion]on 04-05-2024 HbA1c (Bld) [Mass fraction] 6.7 % [facility] Lipid Panelon 04-05-2024 LDL Cholesterol,Calculated 109 mg/dL High 0-100 [facility] Comment on above: Result Comment: LDL ATP III CLASSIFICATION LDL less than 100 mg/dL Optimal LDL 100-129 mg/dL Near or above optimal LDL 130-159 mg/dL Borderline high LDL 160-189 mg/dL High LDL greater than 189 mg/dL Very high Performed By: #### G LULS #### Point of Care testing , Triglyceride w/Reflex 265 mg/dL High 0-149 [facility] Comment on above: Result Comment: TRIG ATP III CLASSIFICATION TRIG less than 150 mg/dL Normal TRIG 150-199 mg/dL Borderline high TRIG 200-500 mg/dL High TRIG greater than 500 mg/dL Very high Standard traceable to the Center for Disease Conrtrol and Prevention (CDC) test method. Performed By: #### G LULS #### Point of Care testing , VLDL CHOLESTEROL 53 mg/dL Normal [facility] Comment on above: Performed By: #### G LULS #### Point of Care testing , MicroAlb Creat Ratio,Uon Creatinine, Urine (Random) 137.00 mg/dL Normal [facility] Comment on above: Result Comment: No r eference range established Performed By: #### G LULS #### Point of Care testing , Microalbumin/Creatinin e Ratio 14.6 mg/g Normal 0.0-30.0 [facility] Comment on above: Result Comment: 30-3 00 mg/g indicates an increased risk for diabetic nephropathy. Greater than 300 mg/g is consistent with clinical nephropathy. (Am. J. Kidney Disease 1995, 25:107) PERFORMED BY: [facility] [address] [place] [address] PATHOLOGIST MANAGER [employer]PER[employer] KAMALA SIMON M.D. Performed By: #### G LULS #### Point of Care testing , Microalbumin [Mass/volume] i n UrineOrdered By: Isidro Gonzalez on 04-05-2024 Albumin DL <= 20 mg/L (U) [Mass/Vol] 2.0 mg/dL High 0.0-1.8 [facility] Comment on above: Performed By: #### G LULS #### Point of Care testing , Serum or plasma high density lipoprotein (HDL) cholesterol measurementOrdered By: Isidro Mast on 04-05-2024 Cholesterol in HDL [Mass/Vol] 57 mg/dL Normal 23-92 [facility] Comment on above: HDL CHOL ATP-III CLA SSIFICATION Cardiovascular RiskHDL > or equal to 60 mg/dL LOWHDL < 40 mg/dL HIGH Result Comment: HDL CHOL ATP-III CLASSIFICATION Cardiovascular Risk HDL > or equal to 60 mg/dL LOW HDL < 40 mg/dL HIGH Performed By: #### G LULS #### Point of Care testing , Serum or plasma total choles terol/high density lipoprotein (HDL) cholesterol mass ratOrdered By: Isidro Mast on 04-05-2024 Cholesterol.total/Chol esterol in HDL [Mass ratio] 3.8 {ratio} Normal <5.0 [facility] Comment on above: Performed By: #### G LULS #### Point of Care testing , Thyroid Stim Hormone w/Rflxo n 04-05-2024 Thyroid Stim Hormone w/Rflx 1.68 u[iU]/mL Normal 0.45-5.33 [facility] Comment on above: Result Comment: PERF ORMED BY: [facility] [address] [place] [address] PATHOLOGIST MANAGER [employer]PER[employer] KAMALA SIMON M.D. Performed By: #### G LULS #### Point of Care testing , Thyrotropin [Units/volume] i n Serum or PlasmaOrdered By: Isidro Mast on 04-05-2024 TSH Qn 1.68 m[IU]/L 0.45-5.33 [facility] Triglyceride [Mass/volume] i n Serum or PlasmaOrdered By: Isidro Gonzalez on 04-05-2024 Triglyceride [Mass/Vol] 265 mg/dL High 0-149 [facility] Comment on above: TRIG ATP III CLASSIF ICATIONTRIG less than 150 mg/dL NormalTRIG 150-199 mg/dL Borderline highTRIG 200-500 mg/dL High TRIG greater than 500 mg/dL Very highStandard traceable to the Center for Disease Conrtrol and Prevention (CDC) test method. Urine microalbumin/creatinin e mass ratioOrdered By: Isidro Gonzalez on 04-05-2024 Albumin/Creatinine DL <= 20 mg/L (U) [Mass ratio] 14.6 mg/g 0.0-30.0 [facility] Comment on above: 30-300 mg/g indicate s an increased risk for diabetic nephropathy. Greater than 300 mg/g is consistent with clinical nephropathy. (Am. J. Kidney Disease 1995, 25:107) Activated partial thrombopla stin time (aPTT) in platelet poor plasma by coagulation aOrdered By: Leonardo Braden on 02-29-2024 aPTT Coag (PPP) [Time] 33.5 s 25.1-36.5 [facility] Comment on above: A hematocrit value g reater than 55% may lead to inaccurate results in coagulation testing. Patients having hematocrit values >55% require a special collection tube for coagulation studies. Please contact the laboratory at [phone] for redraw instructions. Alanine aminotransferase [En zymatic activity/volume] in Serum or PlasmaOrdered By: Leonardo Braden on 02-29-2024 ALT [Catalytic activity/Vol] 20 U/L Normal 7-52 [facility] Comment on above: Performed By: #### C BCNO, BMP #### [address] Albumin [Mass/volume] in Ser um or Plasma by Bromocresol green (BCG) dye binding methoOrdered By: Leonardo Braden on 02-29-2024 Albumin BCG dye [Mass/Vol] 3.7 g/dL 3.5-5.7 [facility] Alkaline phosphatase [Enzyma tic activity/volume] in Serum or PlasmaOrdered By: Leonardo Braden on 02-29-2024 ALP [Catalytic activity/Vol] 61 U/L Normal 34-104 [facility] Comment on above: Performed By: #### C MELISSA, BMP #### [address] Aspartate aminotransferase [ Enzymatic activity/volume] in Serum or PlasmaOrdered By: Leonardo Braden on 02-29-2024 AST [Catalytic activity/Vol] 17 U/L Normal 13-39 [facility] Comment on above: Performed By: #### C BCJOSEMANUEL, BMP #### [address] Automated basophil %Ordered By: Leonardo Braden on 02-29-2024 Basophils/100 WBC (Bld) 0.6 % Normal . [facility] Comment on above: Performed By: #### C MELISSA, BMP #### [address] Automated basophil countOrde red By: Leonardo Braden on 02-29-2024 Basophils (Bld) [#/Vol] 0.0 10*3/uL Normal 0.0-0.2 [facility] Comment on above: Result Comment: PERF ORMED BY: [place] [address] PATHOLOGIST MANAGER [employer] KAMALA SIMON M.D. Performed By: #### C MELISSA, BMP #### [address] Automated blood monocyte cou ntOrdered By: Leonardo Braden on 02-29-2024 Monocytes (Bld) [#/Vol] 0.4 10*3/uL Normal 0.0-0.8 [facility] Comment on above: Performed By: #### C MELISSA, BMP #### [address] Automated eosinophil %Ordere d By: Leonardo Braden on 02-29-2024 Eosinophils/100 WBC (Bld) 3.2 % Normal . [facility] Comment on above: Performed By: #### C MELISSA, BMP #### [address] [place] [address] [place] Automated eosinophil countOr dered By: Leonardo Braden on 02-29-2024 Eosinophils (Bld) [#/Vol] 0.2 10*3/uL Normal 0.0-0.45 [facility] Comment on above: Performed By: #### C BCNO, BMP #### [address] Automated monocyte %Ordered By: Leonardo Braden on 02-29-2024 Monocytes/100 WBC (Bld) 8.9 % Normal . [facility] Comment on above: Performed By: #### C BCJOSEMANUEL, BMP #### [address] Automated neutrophil %Ordere d By: Leonardo Braden on 02-29-2024 Neutrophils/100 WBC (Bld) 52.9 % Normal . [facility] Comment on above: Performed By: #### C MELISSA, BMP #### [address] Bilirubin.total [Mass/volume ] in Serum or PlasmaOrdered By: Leonardo Braden on 02-29-2024 Bilirubin [Mass/Vol] 0.2 mg/dL Low 0.3-1.0 [facility] Comment on above: Performed By: #### C MELISSA, BMP #### [address] angio headon 02-29-2024 CT angio head [facility] [place] [address] CT Scan Report Signed Patient: Jennifer Rothman MR#: [id number] 5 : 1960 Acct:[id number] Age/Sex: 63 / F ADM Date: 02/29/24 Loc: ER Room: Type: [facility] ER Attending Dr: Copies to: Leonardo Braden MD Ordering Provider: Leonardo Braden MD Date of Service: 02/29/24 CT/CT angio neck: [facility] ([id number]) CT/CT angio head: nkl/ CTA Head and Neck TECHNIQUE: Axial imaging of the head and neck with 2-D and 3-D reconstruction. 90cc of [id number]. The CT exam was performed using one or more the following dose reduction techniques: Automated exposure control, adjustment of the MA and/or Kv according to patient size, or use of the iterative reconstruction technique. Stenoses were measured using the NASCET criteria. COMPARISON: None HISTORY: Right-sided numbness. Slurred speech. The visualized aortic arch and great vessels are unremarkable. Subclavian arteries are patent No carotid dissection, critical stenosis or occlusion identified. Mild atherosclerosis of carotid bifurcations. No vertebral dissection, occlusion or abrupt cut off identified. Small RIGHT vertebral artery without direct communication to the basilar artery. The carotid siphons and vertebral basilar systems are patent. No intracranial aneurysm, dissection, abrupt cut off or critical stenosis identified.. . CT/CT angio neck IMPRESSION: No occlusion, critical stenosis or dissection of the extracranial or intracranial circulation. Impression dictated by: Aron Cross M.D.02/29/2024 6:37 PM Dictation Location: [place] [address] Transcribed By: [facility] 02/29/241836 Dictated By: Aron Cross DO 02/29/241832 Signed By: 02/29/24 183 Normal [facility] CT head stroke alert wo cono n 02-29-2024 CT head stroke alert wo con [facility] [place] [address] CT Scan Report Signed Patient: Jennifer Rothman MR#: [id number] 5 : 1960 Acct:[id number] Age/Sex: 63 / F ADM Date: 02/29/24 Loc: ER Room: Type: [facility] ER Attending Dr: Copies to: Leonardo Braden MD Ordering Provider: Leonardo Braden MD Date of Service: 02/29/24 CT/CT head stroke alert wo con: stroke Unenhanced head CT TECHNIQUE: Contiguous axial imaging of the head. The CT exam was performed using one or more the following dose reduction techniques: Automated exposure control, adjustment of the MA and/or Kv according to patient size, or use of the iterative reconstruction technique. COMPARISON: 04/16/23 HISTORY: Numbness RIGHT side. Slurred speech. VENTRICLES: Within normal limits ATROPHY: None BRAIN PARENCHYMA: Decreased density of the white matter is most consistent with chronic small vessel disease. HEMORRHAGE: None HERNIATION: No mass effect or herniation INFARCTION: No recent vascular distribution infarction is seen. EXTRA-AXIAL FLUID COLLECTIONS None MIDBRAIN: Unremarkable ARACELI: Unremarkable MEDULLA: Unremarkable SINUSES: Unremarkable ORBITS: Grossly unremarkable MASTOIDS: Unremarkable BONY STRUCTURES Intact ADDITIONAL FINDINGS: CT/CT head stroke alert wo con IMPRESSION: No acute findings. Preliminary 6:25 PM 02/29/24 Impression dictated by: Aron Cross M.D.02/29/2024 6:32 PM Dictation Location: [place] [address] Transcribed By: [facility] 02/29/241831 Dictated By: Aron Cross DO 02/29/241827 Signed By: 02/29/241831 Normal [facility] Calcium [Mass/volume] in Ser um or PlasmaOrdered By: Leonardo Braden on 02-29-2024 Calcium [Mass/Vol] 8.6 mg/dL Normal 8.6-10.3 [facility] Comment on above: Performed By: #### C [place], BMP #### [address] Capillary blood glucose nu urement by glucometer (mass/volume)Ordered By: Leonardo Braden on 02-29-2024 Glucose [Mass/Vol] 98 mg/dL Normal [facility] Comment on above: Random Glucose Refer ence Range is dependent on time and content of last meal. Glucose of more than 200 mg/dL in a nonstressed, ambulatory subject supports the diagnosis of Diabetes Mellitus. Result Comment: [place] Glucose Reference Range is dependent on time and content of last meal. Glucose of more than 200 mg/dL in a nonstressed, ambulatory subject supports the diagnosis of Diabetes Mellitus. PERFORMED BY: [place] [address] PATHOLOGIST MANAGER [employer] KAMALA SIMON M.D. Performed By: #### C [place], BMP #### [facility] [address] [place] [address] Carbon dioxide, total [Moles /volume] in Serum or PlasmaOrdered By: Leonardo Braden on 02-29-2024 CO2 [Moles/Vol] 26.9 mmol/L Normal 21.0-31.0 [facility] Comment on above: Performed By: #### C BCNO, BMP #### [address] Chloride [Moles/volume] in S marco antonio or PlasmaOrdered By: Leonardo Braden on 02-29-2024 Chloride [Moles/Vol] 106 mmol/L Normal 98-107 [facility] Comment on above: Performed By: #### C BCNO, BMP #### [address] Complete Blood Count Auto Di ffon 02-29-2024 Mean Corpuscular HGB Conc 33.0 g/dL Normal 32.0-35.0 [facility] Comment on above: Performed By: #### C BCNO, BMP #### [address] Monocytes/100 WBC (Bld) 15.68 % Normal 0.00-20.00 [facility] Comment on above: Performed By: #### C BCNO, BMP #### [address] NRBC% 0.0 /100{WBC} Normal 0-0.5 [facility] Comment on above: Performed By: #### C BCNO, BMP #### [address] Comprehensive Metabolic Pane demetria 02-29-2024 Albumin [Mass/Vol] 3.7 g/dL Normal 3.5-5.7 [facility] Comment on above: Performed By: #### C BCNO, BMP #### [place] [address] [place] Creatinine Clr Calc Pharmacy 93.81 Normal [facility] Comment on above: Result Comment: PERF ORMED BY: [place] [address] PATHOLOGIST MANAGER [employer] KAMALA SIMON M.D. Performed By: #### C BCNO, BMP #### [address] GFR/1.73 sq M.predicted MDRD (S/P/Bld) [Vol rate/Area] mL/min/{1.73_m2} Normal [facility] Comment on above: Performed By: #### C [place], BMP #### [address] Creatine kinase [Enzymatic a ctivity/volume] in Serum or PlasmaOrdered By: Leonardo Braden on 02-29-2024 CK [Catalytic activity/Vol] 66 U/L Normal 30-223 [facility] Comment on above: Performed By: #### C [place], BMP #### [address] Creatinine [Mass/volume] in Serum or PlasmaOrdered By: Leonardo Braden on 02-29-2024 Creatinine [Mass/Vol] 0.74 mg/dL Normal 0.60-1.20 [facility] Comment on above: Performed By: #### C [place], BMP #### [address] ECG 12 lead ECGon 02-29-2024 ECG 12 lead ECG [facility] Main [place] [address] [place] [address] Electrocardiograph Report Signed Patient: Jennifer Rothman MR#: [id number] 5 : 1960 Acct:[id number] Age/Sex: 63 / F ADM Date: 02/29/24 Loc: ER Room: Type: [facility] ER Attending Dr: Ordering Provider: Leonardo Braden MD Date of Service: 02/29/2406/15/1810 ECG/ECG 12 lead ECG: Neuro Symptoms/Deficit Copies to: Test Reason : Blood Pressure : / mmHG Vent. Rate : 069 BPM Atrial Rate : 069 BPM P-R Int : 186 ms QRS Dur : 094 ms QT Int : 396 ms P-R-T Axes : 025 062 089 degrees QTc Int : 424 ms Normal sinus rhythm Normal ECG When compared with ECG of 16-APR-2023 13:44, Nonspecific T wave abnormality no longer evident in Inferior leads Nonspecific T wave abnormality, improved in Lateral leads Confirmed by LEONARDO BRADEN MD ([id number]) on 03/01/2024 12:23:46 AM Referred By: Electronically Signed By:LEONARDO BRADEN MD Transcribed By: MUS Signed By Leonardo Braden MD 03/01/24 0023 Normal [facility] Erythrocyte distribution wid th [Ratio] by Automated countOrdered By: Leonardo Braden on 02-29-2024 Erythrocyte distribution width (RBC) [Ratio] 14.5 % Normal 11.9-15.3 [facility] Comment on above: Performed By: #### C [place], BMP #### [facility] [address] [place] [address] [place] Erythrocytes [#/volume] in B lood by Automated countOrdered By: Leonardo Braden on 02-29-2024 RBC (Bld) [#/Vol] 4.29 10*6/uL Normal 3.60-5.00 [facility] Comment on above: Performed By: #### C [place], BMP #### [facility] [address] [place] [id number] [place] Glucose [Mass/volume] in Ser um or PlasmaOrdered By: Leonardo Braden on 02-29-2024 Glucose [Mass/Vol] 96 mg/dL Normal 70-100 [facility] Comment on above: ADA recommended refe rence rangeRandom Glucose Reference Range is dependent on time and content of last meal. Glucose of more than 200 mg/dL in a nonstressed, ambulatory subject supports the diagnosis of Diabetes Mellitus. Result Comment: [place] om Glucose Reference Range is dependent on time and content of last meal. Glucose of more than 200 mg/dL in a nonstressed, ambulatory subject supports the diagnosis of Diabetes Mellitus. ADA recommended reference range Performed By: #### C BCNO, BMP #### [facility] [address] [place] [id number] [place] Hematocrit [Volume Fraction] of Blood by Automated countOrdered By: Leonardo Braden on 02-29-2024 Hematocrit (Bld) [Volume fraction] 37.8 % Normal 34.0-46.4 [facility] Comment on above: Performed By: #### C BCNO, BMP #### [facility] [address] [place] [id number] [place] Hemoglobin [Mass/volume] in BloodOrdered By: Leonardo Braden on 02-29-2024 Hemoglobin (Bld) [Mass/Vol] 12.5 g/dL Normal 11.8-15.4 [facility] Comment on above: Performed By: #### C DUSTIN TORRES #### [address] INR in Platelet poor plasma by Coagulation assayOrdered By: Leonardo Braden on 02-29-2024 INR Coag (PPP) [Relative time] 1.0 {INR} Normal [facility] Comment on above: INR Therapeutic Rang e A) Pre- and Peroperative OAT started two weeks before surgery. NOT HIP SURGERY: 1.5 - 2.5 HIP SURGERY: 2 - 3B) Primary and secondary prevention of venous THROMBOSIS: 2 - 3C) Active venous thrombosis, pulmonary embolismand prevention of recurrent venous thrombosis: 2 - 3D) Prevention of arterial thromboembolismincluding patients with mechanical heart valves: 3 - 4.5 Result Comment: INR Therapeutic Range A) Pre- and Peroperative OAT started two weeks before surgery. NOT HIP SURGERY: 1.5 - 2.5 HIP SURGERY: 2 - 3 B) Primary and secondary prevention of venous THROMBOSIS: 2 - 3 C) Active venous thrombosis, pulmonary embolism and prevention of recurrent venous thrombosis: 2 - 3 D) Prevention of arterial thromboembolism including patients with mechanical heart valves: 3 - 4.5 Performed By: #### C DUSTIN TORRES #### [address] Leukocytes [#/volume] correc janice for nucleated erythrocytes in Blood by Automated counOrdered By: Leonardo Braden on 02-29-2024 WBC corrected for nucl RBC Auto (Bld) [#/Vol] 5.0 10*3/uL 3.8-11.6 [facility] Leukocytes [#/volume] in Blo od by Automated countOrdered By: Leonardo Braden on 02-29-2024 WBC (Bld) [#/Vol] 5.0 10*3/uL Normal 3.8-11.6 [facility] Comment on above: Performed By: #### C [place], DUSTIN #### [place] [address] [place] Lymphocytes [#/volume] in Bl ood by Automated countOrdered By: Leonardo Braden on 02-29-2024 Lymphocytes (Bld) [#/Vol] 1.7 10*3/uL Normal 1.00-4.8 [facility] Comment on above: Performed By: #### C [place], DUSTIN #### [address] Lymphocytes/100 leukocytes i n Blood by Automated countOrdered By: Leonardo Braden on 02-29-2024 Lymphocytes/100 WBC (Bld) 34.4 % Normal . [facility] Comment on above: Performed By: #### C [place], BMP #### [address] MCH [Entitic mass] by Automa janice countOrdered By: Leonardo Braden on 02-29-2024 MCH (RBC) [Entitic mass] 29.1 pg Normal 24.7-34.3 [facility] Comment on above: Performed By: #### C [place], BMP #### [address] MCHC Auto (RBC) [Mass/Vol]Or dered By: Leonardo Braden on 02-29-2024 MCHC (RBC) [Mass/Vol] 33.0 g/dL 32.0-35.0 [facility] MCV [Entitic volume] by Auto mated countOrdered By: Leonardo Braden on 02-29-2024 MCV (RBC) [Entitic vol] 88.2 fL Normal 80-100 [facility] Comment on above: Performed By: #### C [place], BMP #### [address] Monocyte distribution width [Entitic volume] in Blood by AutomatedOrdered By: Leonardo Braden on 02-29-2024 Monocyte distribution width Auto (Bld) [Entitic vol] 15.68 % 0.00-20.00 [facility] Neutrophils [#/volume] in Bl ood by Automated countOrdered By: Leonardo Braden on 02-29-2024 Neutrophils (Bld) [#/Vol] 2.6 10*3/uL Normal 1.8-7.7 [facility] Comment on above: Performed By: #### C [place] BMP #### [address] No Panel InformationOrdered By: Leonardo Braden on 02-29-2024 Estimated GFR (CKD-EPI) > 60.0 mL/Min [facility] Creatinine Clearance (Chem 93.81 [facility] Nucleated erythrocytes [Pres ence] in Blood by Automated countOrdered By: Leonardo Braden on 02-29-2024 Nucleated RBC Auto Ql (Bld) 0.0 /100{WBC} 0-0.5 [facility] Partial Thromboplastin Timeo n 02-29-2024 aPTT Coag (Bld) [Time] 33.5 s Normal 25.1-36.5 [facility] Comment on above: Result Comment: A he matocrit value greater than 55% may lead to inaccurate results in coagulation testing. Patients having hematocrit values >55% require a special collection tube for coagulation studies. Please contact the laboratory at [phone] for redraw instructions. PERFORMED BY: [place] [address] PATHOLOGIST MANAGER [employer] KAMALA SIMON M.D. Performed By: #### C DUSTIN TORRES #### [address] Platelet mean volume [Entiti c volume] in Blood by Automated countOrdered By: Leonardo Braden on 02-29-2024 Platelet mean volume (Bld) [Entitic vol] 8.6 fL Normal 6.3-10.7 [facility] Comment on above: Performed By: #### C [place] BMP #### [facility] [address] [place] [address] Platelets [#/volume] in Bloo d by Automated countOrdered By: Leonardo Braden on 02-29-2024 Platelets (Bld) [#/Vol] 166 10*3/uL Normal 150-450 [facility] Comment on above: Performed By: #### C [place], BMP #### [address] Potassium [Moles/volume] in Serum or PlasmaOrdered By: Leonardo Braden on 02-29-2024 Potassium [Moles/Vol] 4.0 mmol/L Normal 3.5-5.1 [facility] Comment on above: Performed By: #### C DUSTIN TORRES #### [address] Protein [Mass/volume] in Ser um or PlasmaOrdered By: Leonardo Braden on 02-29-2024 Protein [Mass/Vol] 6.0 g/dL Low 6.4-8.9 [facility] Comment on above: Performed By: #### C [place], BMP #### [address] Prothrombin time (PT)Ordered By: Leonardo Braden on 02-29-2024 PT Coag (PPP) [Time] 11.1 s Normal 9.0-12.9 [facility] Comment on above: A hematocrit value g reater than 55% may lead to inaccurate results in coagulation testing. Patients having hematocrit values >55% require a special collection tube for coagulation studies. Please contact the laboratory at [phone] for redraw instructions. Result Comment: A he matocrit value greater than 55% may lead to inaccurate results in coagulation testing. Patients having hematocrit values >55% require a special collection tube for coagulation studies. Please contact the laboratory at [phone] for redraw instructions. Performed By: #### C DUSTIN TORRES #### [address] Serum globulin measurement b y calculation (mass/volume)Ordered By: Leonardo Braden on 02-29-2024 Globulin (S) [Mass/Vol] 2.3 g/dL [facility] Comment on above: Performed By: #### C [place] BMP #### [address] Serum or plasma albumin/glob ulin mass ratioOrdered By: Leonardo Braden on 02-29-2024 Albumin/Globulin [Mass ratio] 1.6 {ratio} [facility] Comment on above: Performed By: #### C [place], BMP #### [address] Serum or plasma anion gap de terminationOrdered By: Leonardo Braden on 02-29-2024 Anion gap [Moles/Vol] 6.1 mmol/L Normal 6.0-15.0 [facility] Comment on above: Performed By: #### C BCNO, BMP #### [address] Sodium [Moles/volume] in Ser um or PlasmaOrdered By: Leonardo Braden on 02-29-2024 Sodium [Moles/Vol] 135 mmol/L Low 136-145 [facility] Comment on above: Performed By: #### C BCJOSEMANUEL, BMP #### [address] Troponin I High Sensitivityo n 02-29-2024 Troponin I High Sensitivity < 2.3 Normal 0.0-15.0 [facility] Comment on above: Result Comment: PERF ORMED BY: [place] [address] PATHOLOGIST MANAGER [employer] KAMALA SIMON M.D. Performed By: #### C BCNO, BMP #### [address] Troponin I.cardiac [Mass/vol ume] in Serum or Plasma by Detection limit <= 0.01 ng/Ordered By: Leonardo Braden on 02-29-2024 Troponin I.cardiac DL <= 0.01 ng/mL [Mass/Vol] < 2.3 pg/mL 0.0-15.0 [facility] Urea nitrogen [Mass/volume] in Serum or PlasmaOrdered By: Leonardo Braden on 02-29-2024 Urea nitrogen [Mass/Vol] 10 mg/dL Normal 7-25 [facility] Comment on above: Performed By: #### C BCNO, BMP #### [address] abdomen pelvis w conon CT abdomen pelvis w con [facility] Main [place] [address] [place] [address] CT Scan Report Signed Patient: Jennifer Rothman MR#: [id number] 5 : 1960 Acct:[id number] Age/Sex: 63 / F ADM Date: 12/24/23 Loc: ER Room: Type: [facility] ER Attending Dr: Copies to: Lynnette Tavera MD Ordering Provider: Lynnette Tavera MD Date of Service: 12/24/23 CT/CT abdomen pelvis w con: r/o dissection, R flank pain constant x 3 days ([id number]) CT/CT angio chest: r/o dissection, R flank pain constant x 3 days CTA chest CLINICAL DATA: Right lower abdominal pain with constipation.. Right flank pain for 3 days. TECHNIQUE: Intravenous contrast-enhanced CT angiography of the chest was performed. Axial, sagittal, coronal, and 3D-dimensional reconstructions were created and reviewed. These CT exams were performed using one or more of the following dose reduction techniques: Automated exposure control, adjustment of the mA and/or kV according to patient size, or use of iterative reconstruction technique. COMPARISON: None.. FINDINGS: Chest: Mediastinum:Thoracic aorta appears normal in caliber without evidence of aneurysm, dissection or rupture. 4 vessel arch is present. Pulmonary trunk appears nondilated. No pericardial effusion. No lymphadenopathy. The esophagus is grossly unremarkable. Lungs:No consolidation pneumothorax or pleural effusion. Bibasilar atelectasis/scarring. Soft tissues/Bones: Soft tissues demonstrate no acute findings. Osseous structures demonstrate degenerative change. CT/CT angio chest IMPRESSION: No acute findings. No evidence of aortic pathology. CT ABDOMEN AND PELVIS WITH INTRAVENOUS CONTRAST: CLINICAL HISTORY: Right lower abdominal pain with constipation COMPARISON: None TECHNIQUE: Spiral images were obtained through the abdomen and pelvis following the administration of intravenous contrast. This CT exam was performed using one or more following dose reduction techniques: Automated exposure control, adjustment of the mA and/or kV according to patient size, or use of iterative reconstruction technique. FINDINGS: Organs:Gallbladder has been removed. Liver portal vein pancreas spleen and adrenal glands all appear unremarkable. No enhancing renal mass or hydronephrosis. Abdominal aorta appears normal in caliber.[ GI: Stomach is grossly unremarkable. Duodenal diverticulum. Small bowel appears nondilated. Appendix is normal. No acute colonic abnormality.[ Pelvis:[Urinary bladder is grossly unremarkable. Uterus is grossly unremarkable. No adnexal mass.] Peritoneum/Retroperitoneu m:No free air, free fluid or lymphadenopathy.[ Abd wall/Bones:Abdominal wall demonstrates no acute findings. Osseous structures demonstrate degenerative change.[ IMPRESSION: No acute process. Impression dictated by: Elian Herrera Jr., CaitlinODelvin12/25/2023 11:02 AM Dictation Location: [place] [address] Transcribed By: [facility] 12/25/23 1102 Dictated By: Elian Herrera Jr, DO 12/25/23 0912 Signed By: 12/25/23 1102 Normal [facility] Alanine aminotransferase [En zymatic activity/volume] in Serum or PlasmaOrdered By: PROVIDER TEMP on 12-24-2023 ALT [Catalytic activity/Vol] 16 U/L Normal 7-52 [facility] Comment on above: Performed By: #### G LULS #### Point of Care testing , Albumin [Mass/volume] in Ser um or Plasma by Bromocresol green (BCG) dye binding methoOrdered By: PROVIDER TEMP on 12-24-2023 Albumin BCG dye [Mass/Vol] 4.1 g/dL 3.5-5.7 [facility] Alkaline phosphatase [Enzyma tic activity/volume] in Serum or PlasmaOrdered By: PROVIDER TEMP on 12-24-2023 ALP [Catalytic activity/Vol] 65 U/L Normal 34-104 [facility] Comment on above: Performed By: #### G LULS #### Point of Care testing , Aspartate aminotransferase [ Enzymatic activity/volume] in Serum or PlasmaOrdered By: PROVIDER TEMP on 12-24-2023 AST [Catalytic activity/Vol] 18 U/L Normal 13-39 [facility] Comment on above: Performed By: #### G LULS #### Point of Care testing , Automated basophil %Ordered By: PROVIDER TEMP on 12-24-2023 Basophils/100 WBC (Bld) 1.1 % Normal . [facility] Comment on above: Performed By: #### G LULS #### Point of Care testing , Automated basophil countOrde red By: PROVIDER TEMP on 12-24-2023 Basophils (Bld) [#/Vol] 0.1 10*3/uL Normal 0.0-0.2 [facility] Comment on above: Result Comment: PERF ORMED BY: [facility] [place] [address] PATHOLOGIST MANAGER [employer] KAMALA SIMON M.D. Performed By: #### G LULS #### Point of Care testing , Automated blood monocyte cou ntOrdered By: PROVIDER TEMP on 12-24-2023 Monocytes (Bld) [#/Vol] 0.7 10*3/uL Normal 0.0-0.8 [facility] Comment on above: Performed By: #### G LULS #### Point of Care testing , Automated eosinophil %Ordere d By: PROVIDER TEMP on 12-24-2023 Eosinophils/100 WBC (Bld) 3.6 % Normal . [facility] Comment on above: Performed By: #### G LULS #### Point of Care testing , Automated eosinophil countOr dered By: PROVIDER TEMP on 12-24-2023 Eosinophils (Bld) [#/Vol] 0.2 10*3/uL Normal 0.0-0.45 [facility] Comment on above: Performed By: #### G LULS #### Point of Care testing , Automated erythrocytes count in urine sediment (number/area)Ordered By: Lynnette Tavera on 12-24-2023 RBC Auto (Urine sed) [#/Area] 1-2 [HPF] 0-4 [facility] Automated leukocytes count i n urine sediment (number/area)Ordered By: Lynnette Tavera on 12-24-2023 WBC Auto (Urine sed) [#/Area] 3-4 [HPF] 0-4 [facility] Automated monocyte %Ordered By: PROVIDER TEMP on 12-24-2023 Monocytes/100 WBC (Bld) 9.8 % Normal . [facility] Comment on above: Performed By: #### G LULS #### Point of Care testing , Automated neutrophil %Ordere d By: PROVIDER TEMP on 12-24-2023 Neutrophils/100 WBC (Bld) 57.0 % Normal . [facility] Comment on above: Performed By: #### G LULS #### Point of Care testing , Automated urine color determ inationOrdered By: Lynnette Tavera on 12-24-2023 Color (U) Yellow Normal Yellow [facility] Comment on above: Order Comment: Name Collection Type:: Clean-Voided Midstream Performed By: #### C BCNO, BMP #### [address] Basic Metabolic Panelon 04-0 Anion Gap Normal 6.0-15.0 [facility] Comment on above: Result Comment: Spec imen hemolyzed, redraw requested Performed By: #### R EDJENNIFER K #### [address] Creatinine Clr Calc Pharmacy 93.14 Normal [facility] Comment on above: Result Comment: --- 12/29/23948 --- Creat Calc PHA previously reported as: 107.69 Performed By: #### R GENARO K #### [address] GFR/1.73 sq M.predicted MDRD (S/P/Bld) [Vol rate/Area] mL/min/{1.73_m2} Normal [facility] Comment on above: Result Comment: --- 12/29/23948 --- GFRe previously reported as: > 60.0 mL/Min Performed By: #### R EDJENNIFER K #### [address] Potassium Normal 3.5-5.1 [facility] Comment on above: Result Comment: Spec imen hemolyzed, redraw requested Performed By: #### R EDRAW K #### [address] Bilirubin Test strip Ql (U)O rdered By: Lynnette Tavera on 12-24-2023 Bilirubin Ql (U) Negative Negative [facility] Bilirubin.direct [Mass/volum e] in Serum or PlasmaOrdered By: PROVIDER TEMP on 12-24-2023 Bilirubin.direct [Mass/Vol] 0.00 mg/dL 0.03-0.18 [facility] Comment on above: If the DBIL is less than 0.1, IBIL is not able to becalculated. Bilirubin.total [Mass/volume ] in Serum or PlasmaOrdered By: PROVIDER TEMP on 12-24-2023 Bilirubin [Mass/Vol] 0.3 mg/dL Normal 0.3-1.0 [facility] Comment on above: Performed By: #### G HOMERO #### Point of Care testing , Calcium [Mass/volume] in Ser um or PlasmaOrdered By: PROVIDER TEMP on 12-24-2023 Calcium [Mass/Vol] 9.6 mg/dL Normal 8.6-10.3 [facility] Comment on above: Performed By: #### R GENARO Esteban #### [facility] Ctr [address] [place] [address] Carbon dioxide, total [Moles /volume] in Serum or PlasmaOrdered By: PROVIDER TEMP on 12-24-2023 CO2 [Moles/Vol] 28.4 mmol/L Normal 21.0-31.0 [facility] Comment on above: Performed By: #### Shanice Esteban #### [facility] [address] [place] [address] Chloride [Moles/volume] in S marco antonio or PlasmaOrdered By: PROVIDER TEMP on 12-24-2023 Chloride [Moles/Vol] 105 mmol/L Normal 98-107 [facility] Comment on above: Performed By: #### Shanice Esteban #### [facility] [address] [place] [address] Complete Blood Count Auto Di ffon 12-24-2023 Mean Corpuscular HGB Conc 32.3 g/dL Normal 32.0-35.0 [facility] Comment on above: Performed By: #### G HOMERO #### Point of Care testing , Monocytes/100 WBC (Bld) 16.87 % Normal 0.00-20.00 [facility] Comment on above: Performed By: #### G HOMERO #### Point of Care testing , NRBC% 0.1 /100{WBC} Normal 0-0.5 [facility] Comment on above: Performed By: #### G HOMERO #### Point of Care testing , Creatinine [Mass/volume] in Serum or PlasmaOrdered By: MUSHTAQ KELLY on 12-24-2023 Creatinine [Mass/Vol] 0.64 mg/dL 0.60-1.20 [facility] Creatinine [Mass/volume] in Serum or PlasmaOrdered By: Lynnette Tavera on 12-24-2023 Creatinine [Mass/Vol] 0.74 mg/dL Normal 0.60-1.20 [facility] Comment on above: --- 12/29/23948 -- -Creat previously reported as: 0.64 mg/dL Result Comment: --- 12/29/23948 --- Creat previously reported as: 0.64 mg/dL Performed By: #### R GENARO Esteban #### [facility] [address] [place] [address] [place] Dipstick and Microscopicon 0 12-24-2023 Appearance (U) Cloudy Critically abnormal Clear [facility] Comment on above: Order Comment: Name Collection Type:: Clean-Voided Midstream Performed By: #### C BCNO, BMP #### [facility] [address] [place] [id number] [place] Bacteria,Urine None Seen Normal None Seen [facility] Comment on above: Order Comment: Name Collection Type:: Clean-Voided Midstream Performed By: #### C BCNO, BMP #### [facility] [address] [place] [id number] [place] Bilirubin,Urine Negative Normal Negative [facility] Comment on above: Order Comment: Name Collection Type:: Clean-Voided Midstream Performed By: #### C BCNO, BMP #### [facility] [address] [place] [id number] [place] Glucose Ql (U) Normal Normal Normal [facility] Comment on above: Order Comment: Name Collection Type:: Clean-Voided Midstream Performed By: #### C BCNO, BMP #### [facility] [address] [place] [address] [place] Hyaline Casts,Urine 0-8 Normal 0-8 [facility] Comment on above: Order Comment: Name Collection Type:: Clean-Voided Midstream Result Comment: PERF ORMED BY: [place] [address] PATHOLOGIST MANAGER [employer] KAMALA SIMON M.D. Performed By: #### C BCNO, BMP #### [place] [id number] [place] Ketones Ql (U) Trace High Negative The [facility] Comment on above: Order Comment: Name Collection Type:: Clean-Voided Midstream Performed By: #### C BCNO, BMP #### [place] [address] [place] Leukocyte esterase Test strip Ql (U) 1+ High Negative [facility] Comment on above: Order Comment: Name Collection Type:: Clean-Voided Midstream Performed By: #### C BCNO, BMP #### [place] [address] [place] Nitrite,Urine Negative Normal Negative [facility] Comment on above: Order Comment: Name Collection Type:: Clean-Voided Midstream Performed By: #### C BCNO, BMP #### [place] [address] [place] Occult Blood,Urine Negative Normal Negative The [facility] Comment on above: Order Comment: Name Collection Type:: Clean-Voided Midstream Result Comment: PERF ORMED BY: [place] [address] PATHOLOGIST MANAGER [employer] KAMALA SIMON M.D. Performed By: #### C BCNO, BMP #### [place] [address] [place] Protein,Urine Negative Normal Negative [facility] Comment on above: Order Comment: Name Collection Type:: Clean-Voided Midstream Performed By: #### C BCNO, BMP #### [place] [id number] [place] RBC,Urine 1-2 Normal 0-4 [facility] Comment on above: Order Comment: Name Collection Type:: Clean-Voided Midstream Performed By: #### C BCNO, BMP #### [address] Specificy [place],Urine 1.022 Normal 1.001-1.03 0 [facility] Comment on above: Order Comment: Name Collection Type:: Clean-Voided Midstream Performed By: #### C BCNO, BMP #### [address] Squamous Epithelial Cell,Urine 1-2 Normal 0-2 [facility] Comment on above: Order Comment: Name Collection Type:: Clean-Voided Midstream Performed By: #### C BCNO, BMP #### [address] Urobilinogen,Urine Normal Normal Normal [facility] Comment on above: Order Comment: Name Collection Type:: Clean-Voided Midstream Performed By: #### C BCNO, BMP #### [address] WBC,Urine 3-4 Normal 0-4 [facility] Comment on above: Order Comment: Name Collection Type:: Clean-Voided Midstream Performed By: #### C BCNO, BMP #### [address] Erythrocyte distribution wid th [Ratio] by Automated countOrdered By: PROVIDER TEMP on 12-24-2023 Erythrocyte distribution width (RBC) [Ratio] 14.5 % Normal 11.9-15.3 [facility] Comment on above: Performed By: #### G LULS #### Point of Care testing , Erythrocytes [#/volume] in B lood by Automated countOrdered By: PROVIDER TEMP on 12-24-2023 RBC (Bld) [#/Vol] 4.75 10*6/uL Normal 3.60-5.00 [facility] Comment on above: Performed By: #### G LULS #### Point of Care testing , Glucose [Mass/volume] in Ser um or PlasmaOrdered By: PROVIDER TEMP on 12-24-2023 Glucose [Mass/Vol] 129 mg/dL High 70-100 [facility] Comment on above: ADA recommended refe rence rangeRandom Glucose Reference Range is dependent on time and content of last meal. Glucose of more than 200 mg/dL in a nonstressed, ambulatory subject supports the diagnosis of Diabetes Mellitus. Result Comment: [place] om Glucose Reference Range is dependent on time and content of last meal. Glucose of more than 200 mg/dL in a nonstressed, ambulatory subject supports the diagnosis of Diabetes Mellitus. ADA recommended reference range Performed By: #### R GENARO Esteban #### [facility] [address] Hematocrit [Volume Fraction] of Blood by Automated countOrdered By: PROVIDER TEMP on 12-24-2023 Hematocrit (Bld) [Volume fraction] 41.5 % Normal 34.0-46.4 [facility] Comment on above: Performed By: #### G LULS #### Point of Care testing , Hemoglobin [Mass/volume] in BloodOrdered By: PROVIDER TEMP on 12-24-2023 Hemoglobin (Bld) [Mass/Vol] 13.4 g/dL Normal 11.8-15.4 [facility] Comment on above: Performed By: #### G LULS #### Point of Care testing , Hepatic Panelon 12-24-2023 Albumin [Mass/Vol] 4.1 g/dL Normal 3.5-5.7 [facility] Comment on above: Performed By: #### G LULS #### Point of Care testing , Bilirubin,Indirect 0.3 mg/dL Normal [facility] Comment on above: Performed By: #### G LULS #### Point of Care testing , Bilirubin.indirect [Mass/Vol] 0.00 mg/dL Low 0.03-0.18 [facility] Comment on above: Result Comment: If t he DBIL is less than 0.1, IBIL is not able to be calculated. Performed By: #### G LULS #### Point of Care testing , Ketones Auto test strip (U) [Mass/Vol]Ordered By: Lynnette Tavera on 12-24-2023 Ketones (U) [Mass/Vol] Trace Negative [facility] - UrinalysisOrder ed By: Lynnette Tavera on 12-24-2023 Hyaline casts LM Ql (Urine sed) 0-8 [LPF] 0-8 [facility] Leukocytes [#/volume] correc janice for nucleated erythrocytes in Blood by Automated counOrdered By: PROVIDER TEMP on 12-24-2023 WBC corrected for nucl RBC Auto (Bld) [#/Vol] 6.7 10*3/uL 3.8-11.6 [facility] Leukocytes [#/volume] in Blo od by Automated countOrdered By: PROVIDER TEMP on 12-24-2023 WBC (Bld) [#/Vol] 6.7 10*3/uL Normal 3.8-11.6 [facility] Comment on above: Performed By: #### G LULS #### Point of Care testing , Lipase [Enzymatic activity/v olume] in Serum or PlasmaOrdered By: PROVIDER TEMP on 12-24-2023 Lipase [Catalytic activity/Vol] 74.0 U/L Normal 11.0-82.0 [facility] Comment on above: Result Comment: PERF ORMED BY: [place] [address] PATHOLOGIST MANAGER [employer] KAMALA SIMON M.D. Performed By: #### R GENARO Esteban #### [address] Lymphocytes [#/volume] in Bl ood by Automated countOrdered By: PROVIDER TEMP on 12-24-2023 Lymphocytes (Bld) [#/Vol] 1.9 10*3/uL Normal 1.00-4.8 [facility] Comment on above: Performed By: #### G LULS #### Point of Care testing , Lymphocytes/100 leukocytes i n Blood by Automated countOrdered By: PROVIDER TEMP on 12-24-2023 Lymphocytes/100 WBC (Bld) 28.5 % Normal . [facility] Comment on above: Performed By: #### G LULS #### Point of Care testing , MCH [Entitic mass] by Automa janice countOrdered By: PROVIDER TEMP on 12-24-2023 MCH (RBC) [Entitic mass] 28.3 pg Normal 24.7-34.3 [facility] Comment on above: Performed By: #### G HOMERO #### Point of Care testing , MCHC Auto (RBC) [Mass/Vol]Or dered By: PROVIDER TEMP on 12-24-2023 MCHC (RBC) [Mass/Vol] 32.3 g/dL 32.0-35.0 [facility] MCV [Entitic volume] by Auto mated countOrdered By: PROVIDER TEMP on 12-24-2023 MCV (RBC) [Entitic vol] 87.5 fL Normal 80-100 [facility] Comment on above: Performed By: #### G HOMERO #### Point of Care testing , Monocyte distribution width [Entitic volume] in Blood by AutomatedOrdered By: PROVIDER TEMP on 12-24-2023 Monocyte distribution width Auto (Bld) [Entitic vol] 16.87 % 0.00-20.00 [facility] Neutrophils [#/volume] in Bl ood by Automated countOrdered By: PROVIDER TEMP on 12-24-2023 Neutrophils (Bld) [#/Vol] 3.8 10*3/uL Normal 1.8-7.7 [facility] Comment on above: Performed By: #### G HOMERO #### Point of Care testing , Nitrite Test strip Ql (U)Ord ered By: Lynnette Tavera on 12-24-2023 Nitrite Ql (U) Negative Negative [facility] No Panel InformationOrdered By: MUSHTAQ KELLY on 12-24-2023 Estimated GFR (CKD-EPI) > 60.0 mL/Min [facility] Comment on above: --- 12/29/23948 -- -GFRe previously reported as: > 60.0 mL/Min Pharmacy Creatinine Clearance (Chem 107.69 [facility] No Panel InformationOrdered By: Lynnette Tavera on 12-24-2023 Pharmacy Creatinine Clearance (Chem 93.14 [facility] Comment on above: --- 12/29/23948 -- -Creat Calc PHA previously reported as: 107.69 Nucleated erythrocytes [Pres ence] in Blood by Automated countOrdered By: PROVIDER TEMP on 12-24-2023 Nucleated RBC Auto Ql (Bld) 0.1 /100{WBC} 0-0.5 [facility] Platelet mean volume [Entiti c volume] in Blood by Automated countOrdered By: PROVIDER TEMP on 12-24-2023 Platelet mean volume (Bld) [Entitic vol] 9.3 fL Normal 6.3-10.7 [facility] Comment on above: Performed By: #### G LORENELS #### Point of Care testing , Platelets [#/volume] in Bloo d by Automated countOrdered By: PROVIDER TEMP on 12-24-2023 Platelets (Bld) [#/Vol] 217 10*3/uL Normal 150-450 [facility] Comment on above: Performed By: #### G LORENELS #### Point of Care testing , Potassium [Moles/volume] in Serum or PlasmaOrdered By: Lynnette Tavera on 12-24-2023 Potassium [Moles/Vol] 4.0 mmol/L Normal 3.5-5.1 [facility] Comment on above: Result Comment: PERF ORMED BY: [place] [address] PATHOLOGIST MANAGER [employer] KAMALA SIMON M.D. Performed By: #### R GENARO Esteban #### [address] Protein Auto test strip (U) [Mass/Vol]Ordered By: Lynnette Tavera on 12-24-2023 Protein (U) [Mass/Vol] Negative Negative [facility] Protein [Mass/volume] in Ser um or PlasmaOrdered By: PROVIDER TEMP on 12-24-2023 Protein [Mass/Vol] 6.5 g/dL Normal 6.4-8.9 [facility] Comment on above: Performed By: #### G LORENELS #### Point of Care testing , Serum globulin measurement b y calculation (mass/volume)Ordered By: PROVIDER TEMP on 12-24-2023 Globulin (S) [Mass/Vol] 2.4 g/dL Normal [facility] Comment on above: Performed By: #### G LORENELS #### Point of Care testing , Serum or plasma albumin/glob ulin mass ratioOrdered By: PROVIDER TEMP on 12-24-2023 Albumin/Globulin [Mass ratio] 1.7 {ratio} Normal [facility] Comment on above: Performed By: #### G HOMERO #### Point of Care testing , Serum or plasma anion gap de terminationOrdered By: PROVIDER TEMP on 12-24-2023 Anion gap [Moles/Vol] See comment 6.0-15.0 [facility] Comment on above: Specimen hemolyzed, redraw requested Serum or plasma non-glucuron idated bilirubin measurement (mass/volume)Ordered By: PROVIDER TEMP on 12-24-2023 Bilirubin.indirect [Mass/Vol] 0.3 mg/dL [facility] Sodium [Moles/volume] in Ser um or PlasmaOrdered By: PROVIDER TEMP on 12-24-2023 Sodium [Moles/Vol] 141 mmol/L Normal 136-145 [facility] Comment on above: Performed By: #### R GENARO Esteban #### [facility] [address] Specific gravity Auto test s trip (U) [Rel density]Ordered By: Lynnette Tavera on 12-24-2023 Specific gravity (U) [Rel density] 1.022 1.001-1.03 0 [facility] Squamous epithelial cells de tection in urine sediment by light microscopyOrdered By: Lynnette Tavera on 12-24-2023 Epithelial cells.squamous LM Ql (Urine sed) 1-2 [HPF] 0-2 [facility] Urea nitrogen [Mass/volume] in Serum or PlasmaOrdered By: PROVIDER TEMP on 12-24-2023 Urea nitrogen [Mass/Vol] 12 mg/dL Normal 7-25 [facility] Comment on above: Performed By: #### R GENARO Esteban #### [facility] [address] [place] [address] Urine bacteria detection by automated methodOrdered By: Lynnette Tavera on 12-24-2023 Bacteria Auto Ql (U) None seen None Seen [facility] Urine clarity by refractomet ry automatedOrdered By: Lynnette Tavera on 12-24-2023 Clarity Refractometry automated (U) Cloudy Clear [facility] Urine glucose measurement by automated test strip (mass/volume)Ordered By: Lynnette Tavera on 12-24-2023 Glucose Auto test strip (U) [Mass/Vol] Normal mg/dL Normal [facility] Urine hemoglobin detection b y automated test stripOrdered By: Lynnette Tavera on 12-24-2023 Hemoglobin Auto test strip Ql (U) Negative Negative [facility] Urine leukocyte esterase det ection by automated test stripOrdered By: Lynnette Tavera on 12-24-2023 Leukocyte esterase Auto test strip Ql (U) 1+ Negative [facility] Urine pH measurement by auto mated test stripOrdered By: Lynnette Tavera on 12-24-2023 pH (U) 6.0 [pH] Normal 5.0-9.0 [facility] Comment on above: Order Comment: Name Collection Type:: Clean-Voided Midstream Performed By: #### C BCNO, BMP #### [facility] [address] Urobilinogen Auto test strip (U) [Mass/Vol]Ordered By: Lynnette Tavera on 12-24-2023 Urobilinogen (U) [Mass/Vol] Normal mg/dL Normal [facility] HbA1c HPLC (Bld) [Mass fract ion]on 11-27-2023 HbA1c (Bld) [Mass fraction] 6.1 % [facility] A1C HEMOGLOBINon 08-26-2023 HbA1c (Bld) [Mass fraction] 5.6 % [employer] Other HbA1c (Bld) [Mass fraction]o n 08-26-2023 A1C HEMOGLOBIN [place] [employer] Other Alanine aminotransferase [En zymatic activity/volume] in Serum or PlasmaOrdered By: Isidro Gonzalez on 04-29-2023 ALT [Catalytic activity/Vol] 13 U/L 7-52 [facility] Albumin [Mass/volume] in Ser um or Plasma by Bromocresol green (BCG) dye binding methoOrdered By: Isidro Gonzalez on 04-29-2023 Albumin BCG dye [Mass/Vol] 4.1 g/dL 3.5-5.7 [facility] Alkaline phosphatase [Enzyma tic activity/volume] in Serum or PlasmaOrdered By: Isidro Mast on 04-29-2023 ALP [Catalytic activity/Vol] 62 U/L 34-104 [facility] Aspartate aminotransferase [ Enzymatic activity/volume] in Serum or PlasmaOrdered By: Isidro Mast on 04-29-2023 AST [Catalytic activity/Vol] 14 U/L 13-39 [facility] Automated erythrocytes count in urine sediment (number/area)Ordered By: Isidro Mast on 04-29-2023 RBC Auto (Urine sed) [#/Area] 0-1 [HPF] 0-4 [facility] Automated leukocytes count i n urine sediment (number/area)Ordered By: Isidro Mast on 04-29-2023 WBC Auto (Urine sed) [#/Area] 10-19 [HPF] 0-4 [facility] Automated urine sediment nicole cium oxalate crystal count by microscopy (number/high powOrdered By: Isidro Mast on 04-29-2023 Calcium oxalate crystals LM.HPF (Urine sed) [#/Area] 3+ [HPF] [facility] Basophils Auto (Bld) [#/Vol] Ordered By: Isidro Mast on 04-29-2023 Basophils (Bld) [#/Vol] 0.1 10*3/uL 0.0-0.2 [facility] Basophils/100 WBC Auto (Bld) Ordered By: Isidro Mast on 04-29-2023 Basophils/100 WBC (Bld) 1.5 % . [facility] Bilirubin Test strip Ql (U)O rdered By: Isidro Mast on 04-29-2023 Bilirubin Ql (U) Negative Negative [facility] Bilirubin.total [Mass/volume ] in Serum or PlasmaOrdered By: Isidro Mast on 04-29-2023 Bilirubin [Mass/Vol] 0.4 mg/dL 0.3-1.0 [facility] Calcium [Mass/volume] in Ser um or PlasmaOrdered By: Isidro Mast on 04-29-2023 Calcium [Mass/Vol] 9.3 mg/dL 8.6-10.3 [facility] Carbon dioxide, total [Moles /volume] in Serum or PlasmaOrdered By: Isidro Mast on 04-29-2023 CO2 [Moles/Vol] 33.1 mmol/L 21.0-31.0 [facility] Chloride [Moles/volume] in S marco antonio or PlasmaOrdered By: Isidro Mast on 04-29-2023 Chloride [Moles/Vol] 102 mmol/L 98-107 [facility] Color Auto (U)Ordered By: Er ic Mast on 04-29-2023 Color (U) Yellow Yellow [facility] Creatinine [Mass/volume] in Serum or PlasmaOrdered By: Isidro Mast on 04-29-2023 Creatinine [Mass/Vol] 0.53 mg/dL 0.60-1.20 [facility] Eosinophils Auto (Bld) [#/Vo l]Ordered By: Isidro Mast on 04-29-2023 Eosinophils (Bld) [#/Vol] 0.3 10*3/uL 0.0-0.45 [facility] Eosinophils/100 WBC Auto (Bl d)Ordered By: Isidro Mast on 04-29-2023 Eosinophils/100 WBC (Bld) 5.5 % . [facility] Erythrocyte distribution wid th Auto (RBC) [Ratio]Ordered By: Isidro Mast on 04-29-2023 Erythrocyte distribution width (RBC) [Ratio] 14.1 % 11.9-15.3 [facility] Globulin Calc (S) [Mass/Vol] Ordered By: Isidro Mast on 04-29-2023 Globulin (S) [Mass/Vol] 1.8 g/dL [facility] Glucose [Mass/volume] in Ser um or PlasmaOrdered By: Isidro Mast on 04-29-2023 Glucose [Mass/Vol] 110 mg/dL 70-100 [facility] Comment on above: ADA recommended refe rence rangeRandom Glucose Reference Range is dependent on time and content of last meal. Glucose of more than 200 mg/dL in a nonstressed, ambulatory subject supports the diagnosis of Diabetes Mellitus. Hematocrit Auto (Bld) [Volum e fraction]Ordered By: Isidro Mast on 04-29-2023 Hematocrit (Bld) [Volume fraction] 39.4 % 34.0-46.4 [facility] Hemoglobin [Mass/volume] in BloodOrdered By: Isidro Mast on 04-29-2023 Hemoglobin (Bld) [Mass/Vol] 12.6 g/dL 11.8-15.4 [facility] Ketones Auto test strip (U) [Mass/Vol]Ordered By: Isidro Mast on 04-29-2023 Ketones (U) [Mass/Vol] Trace Negative [facility] Laboratory - UrinalysisOrder ed By: Isidro Mast on 04-29-2023 Hyaline casts LM Ql (Urine sed) 0-8 [LPF] 0-8 [facility] Leukocytes [#/volume] correc janice for nucleated erythrocytes in Blood by Automated counOrdered By: Isidro Mast on 04-29-2023 WBC corrected for nucl RBC Auto (Bld) [#/Vol] 5.0 10*3/uL 3.8-11.6 [facility] Lymphocytes Auto (Bld) [#/Vo l]Ordered By: Isidro Mast on 04-29-2023 Lymphocytes (Bld) [#/Vol] 1.4 10*3/uL 1.00-4.8 [facility] Lymphocytes/100 WBC Auto (Bl d)Ordered By: Isidro Mast on 04-29-2023 Lymphocytes/100 WBC (Bld) 28.0 % . [facility] MCH Auto (RBC) [Entitic mass ]Ordered By: Isidro Mast on 04-29-2023 MCH (RBC) [Entitic mass] 27.9 pg 24.7-34.3 [facility] MCHC Auto (RBC) [Mass/Vol]Or dered By: Isidro Mast on 04-29-2023 MCHC (RBC) [Mass/Vol] 32.0 g/dL 32.0-35.0 [facility] MCV Auto (RBC) [Entitic vol] Ordered By: Isidro Mast on 04-29-2023 MCV (RBC) [Entitic vol] 87.2 fL 80-100 [facility] Monocytes Auto (Bld) [#/Vol] Ordered By: Isidro Mast on 04-29-2023 Monocytes (Bld) [#/Vol] 0.2 10*3/uL 0.0-0.8 [facility] Monocytes/100 WBC Auto (Bld) Ordered By: Isidro Mast on 04-29-2023 Monocytes/100 WBC (Bld) 4.8 % . [facility] Neutrophils Auto (Bld) [#/Vo l]Ordered By: Isidro Mast on 04-29-2023 Neutrophils (Bld) [#/Vol] 3.0 10*3/uL 1.8-7.7 [facility] Neutrophils/100 WBC Auto (Bl d)Ordered By: Isidro Mast on 04-29-2023 Neutrophils/100 WBC (Bld) 60.2 % . [facility] Nitrite Test strip Ql (U)Ord ered By: Isidro Mast on 04-29-2023 Nitrite Ql (U) Negative Negative [facility] No Panel InformationOrdered By: Isidro Mast on 04-29-2023 Estimated GFR (CKD-EPI) > 60.0 mL/Min [facility] Pharmacy Creatinine Clearance (Chem N/A [facility] Nucleated erythrocytes [Pres ence] in Blood by Automated countOrdered By: Isidro Mast on 04-29-2023 Nucleated RBC Auto Ql (Bld) 0.1 /100{WBC} 0-0.5 [facility] Platelet mean volume Auto (B ld) [Entitic vol]Ordered By: Isidro Mast on 04-29-2023 Platelet mean volume (Bld) [Entitic vol] 10.6 fL 6.3-10.7 [facility] Platelets Auto (Bld) [#/Vol] Ordered By: Isidro Mast on 04-29-2023 Platelets (Bld) [#/Vol] 179 10*3/uL 150-450 [facility] Potassium [Moles/volume] in Serum or PlasmaOrdered By: Isidro Mast on 04-29-2023 Potassium [Moles/Vol] 4.4 mmol/L 3.5-5.1 [facility] Protein Auto test strip (U) [Mass/Vol]Ordered By: Isidro Mast on 04-29-2023 Protein (U) [Mass/Vol] Negative Negative [facility] Protein [Mass/volume] in Ser um or PlasmaOrdered By: Isidro Mast on 04-29-2023 Protein [Mass/Vol] 5.9 g/dL 6.4-8.9 [facility] RBC Auto (Bld) [#/Vol]Ordere d By: Isidro Lisa on 04-29-2023 RBC (Bld) [#/Vol] 4.52 10*6/uL 3.60-5.00 [facility] Serum or plasma albumin/glob ulin mass ratioOrdered By: Isidro Mast on 04-29-2023 Albumin/Globulin [Mass ratio] 2.3 {ratio} [facility] Serum or plasma anion gap de terminationOrdered By: Isidro Mast on 04-29-2023 Anion gap [Moles/Vol] 10.3 mmol/L 6.0-15.0 [facility] Sodium [Moles/volume] in Ser um or PlasmaOrdered By: Isidro Mast on 04-29-2023 Sodium [Moles/Vol] 141 mmol/L 136-145 [facility] Specific gravity Auto test s trip (U) [Rel density]Ordered By: Isidro Gonzalez on 04-29-2023 Specific gravity (U) [Rel density] 1.012 1.001-1.03 0 [facility] Squamous epithelial cells de tection in urine sediment by light microscopyOrdered By: Isidrowillow Gonzalez on 04-29-2023 Epithelial cells.squamous LM Ql (Urine sed) 1-2 [HPF] 0-2 [facility] Thyrotropin [Units/volume] i n Serum or PlasmaOrdered By: Alyce Flaherty on 04-29-2023 TSH Qn 0.91 m[IU]/L 0.45-5.33 [facility] Urea nitrogen [Mass/volume] in Serum or PlasmaOrdered By: Isidro Gonzalez on 04-29-2023 Urea nitrogen [Mass/Vol] 6 mg/dL 7-25 [facility] Urine bacteria detection by automated methodOrdered By: Isidro Gonzalez on 04-29-2023 Bacteria Auto Ql (U) None seen None Seen [facility] Urine clarity by refractomet ry automatedOrdered By: Isidro Gonzalez on 04-29-2023 Clarity Refractometry automated (U) Cloudy Clear [facility] Urine glucose measurement by automated test strip (mass/volume)Ordered By: Isidro Gonzalez on 04-29-2023 Glucose Auto test strip (U) [Mass/Vol] Normal mg/dL Normal [facility] Urine hemoglobin detection b y automated test stripOrdered By: Isidro Mast on 04-29-2023 Hemoglobin Auto test strip Ql (U) Negative Negative [facility] Urine leukocyte esterase det ection by automated test stripOrdered By: Isidro Mast on 04-29-2023 Leukocyte esterase Auto test strip Ql (U) 3+ Negative [facility] Urine sediment crystal ident ification by light microscopyOrdered By: Isidro Mast on 04-29-2023 Crystals LM Nom (Urine sed) None seen [HPF] [facility] Urobilinogen Auto test strip (U) [Mass/Vol]Ordered By: Isidro Mast on 04-29-2023 Urobilinogen (U) [Mass/Vol] Normal mg/dL Normal [facility] WBC Auto (Bld) [#/Vol]Ordere d By: Isidro Mast on 04-29-2023 WBC (Bld) [#/Vol] 5.0 10*3/uL 3.8-11.6 [facility] pH Auto test strip (U)Ordere d By: Isidro Mast on 04-29-2023 pH (U) 7.0 [pH] 5.0-9.0 [facility] Basophils Auto (Bld) [#/Vol] Ordered By: Alyce Flaherty on 04-17-2023 Basophils (Bld) [#/Vol] 0.0 10*3/uL 0.0-0.2 [facility] Basophils/100 WBC Auto (Bld) Ordered By: Alyce Flaherty on 04-17-2023 Basophils/100 WBC (Bld) 0.6 % . [facility] Calcium [Mass/volume] in Ser um or PlasmaOrdered By: Alyce Flaherty on 04-17-2023 Calcium [Mass/Vol] 8.9 mg/dL 8.6-10.3 [facility] Carbon dioxide, total [Moles /volume] in Serum or PlasmaOrdered By: Alyce Flaherty on 04-17-2023 CO2 [Moles/Vol] 26.8 mmol/L 21.0-31.0 [facility] Chloride [Moles/volume] in S marco antonio or PlasmaOrdered By: Alyce Flaherty on 04-17-2023 Chloride [Moles/Vol] 106 mmol/L 98-107 [facility] Cholesterol [Mass/volume] in Serum or PlasmaOrdered By: Alyce Flaherty on 04-17-2023 Cholesterol [Mass/Vol] 187 mg/dL 140-200 [facility] Comment on above: Chol less than 200 m g/dl low riskChol 201-239 mg/dl borderline riskChol 240 mg/dl and greater high risk Cholesterol in LDL Calc [Mas s/Vol]Ordered By: Alyce Flaherty on 04-17-2023 Cholesterol in LDL [Mass/Vol] 112 mg/dL 0-100 [facility] Comment on above: LDL ATP III CLASSIFI CATIONLDL less than 100 mg/dL OptimalLDL 100-129 mg/dL Near or above optimalLDL 130-159 mg/dL Borderline highLDL 160-189 mg/dL HighLDL greater than 189 mg/dL Very high Cholesterol in VLDL Calc [Ma ss/Vol]Ordered By: Aylce Flaherty on 04-17-2023 Cholesterol in VLDL [Mass/Vol] 30 mg/dL [facility] Creatinine [Mass/volume] in Serum or PlasmaOrdered By: Alyce Flaherty on 04-17-2023 Creatinine [Mass/Vol] 0.54 mg/dL 0.60-1.20 [facility] Eosinophils Auto (Bld) [#/Vo l]Ordered By: Alyce Flaherty on 04-17-2023 Eosinophils (Bld) [#/Vol] 0.2 10*3/uL 0.0-0.45 [facility] Eosinophils/100 WBC Auto (Bl d)Ordered By: Alyce Flaherty on 04-17-2023 Eosinophils/100 WBC (Bld) 3.1 % . [facility] Erythrocyte distribution wid th Auto (RBC) [Ratio]Ordered By: Alyce Flaherty on 04-17-2023 Erythrocyte distribution width (RBC) [Ratio] 14.3 % 11.9-15.3 [facility] Folate [Mass/volume] in Seru m or PlasmaOrdered By: Alyce Flaherty on 04-17-2023 Folate [Mass/Vol] 22.7 ng/mL >5.9 [facility] Comment on above: Folate reference ran ge: >5.9 ng/mlThe WHO technical consultation on folate and vitamin [id number] has determined that folate concentrations lessthan 4 ng/ml are considered deficient. Glucose Glucometer (BldC) [M ass/Vol]Ordered By: Jairo Hughes on 04-17-2023 Glucose [Mass/Vol] 108 mg/dL [facility] Comment on above: Random Glucose Refer ence Range is dependent on time and content of last meal. Glucose of more than 200 mg/dL in a nonstressed, ambulatory subject supports the diagnosis of Diabetes Mellitus. Glucose [Mass/volume] in Ser um or PlasmaOrdered By: Alyce Flaherty on 04-17-2023 Glucose [Mass/Vol] 105 mg/dL 70-100 [facility] Comment on above: ADA recommended refe rence rangeRandom Glucose Reference Range is dependent on time and content of last meal. Glucose of more than 200 mg/dL in a nonstressed, ambulatory subject supports the diagnosis of Diabetes Mellitus. Glucose mean value [Mass/vol ume] in Blood Estimated from glycated hemoglobinOrdered By: Alyce Flaherty on 04-17-2023 Average glucose Estimated from glycated hemoglobin (Bld) [Mass/Vol] 128 mg/dL [facility] Hematocrit Auto (Bld) [Volum e fraction]Ordered By: Alyce Flaherty on 04-17-2023 Hematocrit (Bld) [Volume fraction] 37.8 % 34.0-46.4 [facility] Hemoglobin A1c percentageOrd ered By: Alyce Flaherty on 04-17-2023 HbA1c (Bld) [Mass fraction] 6.1 % 4.3-5.6 [facility] Comment on above: Increased risk for d iabetes: 5.7 - 6.4diabetes: >6.4glycemic control for adults with diabetes: <7.0 Hemoglobin [Mass/volume] in BloodOrdered By: Alyce Flaherty on 04-17-2023 Hemoglobin (Bld) [Mass/Vol] 12.3 g/dL 11.8-15.4 [facility] Leukocytes [#/volume] correc janice for nucleated erythrocytes in Blood by Automated counOrdered By: Alyce Flaherty on 04-17-2023 WBC corrected for nucl RBC Auto (Bld) [#/Vol] 6.4 10*3/uL 3.8-11.6 [facility] Lymphocytes Auto (Bld) [#/Vo l]Ordered By: Alyce Flaherty on 04-17-2023 Lymphocytes (Bld) [#/Vol] 1.4 10*3/uL 1.00-4.8 [facility] Lymphocytes/100 WBC Auto (Bl d)Ordered By: Alyce Flaherty on 04-17-2023 Lymphocytes/100 WBC (Bld) 21.7 % . [facility] MCH Auto (RBC) [Entitic mass ]Ordered By: Alyce Flaherty on 04-17-2023 MCH (RBC) [Entitic mass] 28.1 pg 24.7-34.3 [facility] MCHC Auto (RBC) [Mass/Vol]Or dered By: Alyce Flaherty on 04-17-2023 MCHC (RBC) [Mass/Vol] 32.6 g/dL 32.0-35.0 [facility] MCV Auto (RBC) [Entitic vol] Ordered By: Alyce Flaherty on 04-17-2023 MCV (RBC) [Entitic vol] 86.3 fL 80-100 [facility] Monocytes Auto (Bld) [#/Vol] Ordered By: Alyce Flaherty on 04-17-2023 Monocytes (Bld) [#/Vol] 0.5 10*3/uL 0.0-0.8 [facility] Monocytes/100 WBC Auto (Bld) Ordered By: Alyce Flaherty on 04-17-2023 Monocytes/100 WBC (Bld) 7.5 % . [facility] Neutrophils Auto (Bld) [#/Vo l]Ordered By: Alyce Flaherty on 04-17-2023 Neutrophils (Bld) [#/Vol] 4.3 10*3/uL 1.8-7.7 [facility] Neutrophils/100 WBC Auto (Bl d)Ordered By: Alyce Flaherty on 04-17-2023 Neutrophils/100 WBC (Bld) 67.1 % . [facility] No Panel InformationOrdered By: Jairo Hughes on 04-17-2023 Bedside Glucose Comment Glu2: cleaned meter [facility] No Panel InformationOrdered By: Alyce Flaherty on 04-17-2023 Estimated GFR (CKD-EPI) > 60.0 mL/Min [facility] Creatinine Clearance (Chem 126.09 [facility] Nucleated erythrocytes [Pres ence] in Blood by Automated countOrdered By: Alyce Flaherty on 04-17-2023 Nucleated RBC Auto Ql (Bld) 0.2 /100{WBC} 0-0.5 [facility] Platelet mean volume Auto (B ld) [Entitic vol]Ordered By: Alyce Flaherty on 04-17-2023 Platelet mean volume (Bld) [Entitic vol] 9.5 fL 6.3-10.7 [facility] Platelets Auto (Bld) [#/Vol] Ordered By: Alyce Flaherty on 04-17-2023 Platelets (Bld) [#/Vol] 143 10*3/uL 150-450 [facility] Comment on above: Delta: 195 on -1317 Potassium [Moles/volume] in Serum or PlasmaOrdered By: Alyce Flaherty on 04-17-2023 Potassium [Moles/Vol] 4.5 mmol/L 3.5-5.1 [facility] RBC Auto (Bld) [#/Vol]Ordere d By: Alyce Flaherty on 04-17-2023 RBC (Bld) [#/Vol] 4.38 10*6/uL 3.60-5.00 [facility] Serum or plasma anion gap de terminationOrdered By: Alyce Flaherty on 04-17-2023 Anion gap [Moles/Vol] 10.7 mmol/L 6.0-15.0 [facility] Serum or plasma high density lipoprotein (HDL) cholesterol measurementOrdered By: Alyce Flaherty on 04-17-2023 Cholesterol in HDL [Mass/Vol] 45 mg/dL [facility] Comment on above: HDL CHOL ATP-III CLA SSIFICATION Cardiovascular RiskHDL > or equal to 60 mg/dL LOWHDL < 40 mg/dL HIGH Serum or plasma total choles terol/high density lipoprotein (HDL) cholesterol mass ratOrdered By: Alyce Flaherty on 04-17-2023 Cholesterol.total/Chol esterol in HDL [Mass ratio] 4.2 {ratio} <5.0 [facility] Sodium [Moles/volume] in Ser um or PlasmaOrdered By: Alyce Flaherty on 04-17-2023 Sodium [Moles/Vol] 139 mmol/L 136-145 [facility] Thyrotropin [Units/volume] i n Serum or PlasmaOrdered By: Alyce Flaherty on 04-17-2023 TSH Qn 0.27 m[IU]/L 0.45-5.33 [facility] Triglyceride [Mass/volume] i n Serum or PlasmaOrdered By: Alyce Flaherty on 04-17-2023 Triglyceride [Mass/Vol] 150 mg/dL 0-149 [facility] Comment on above: TRIG ATP III CLASSIF ICATIONTRIG less than 150 mg/dL NormalTRIG 150-199 mg/dL Borderline highTRIG 200-500 mg/dL High TRIG greater than 500 mg/dL Very highStandard traceable to the Center for Disease Conrtrol and Prevention (CDC) test method. Urea nitrogen [Mass/volume] in Serum or PlasmaOrdered By: Alyce Flaherty on 04-17-2023 Urea nitrogen [Mass/Vol] 9 mg/dL 7-25 [facility] Vitamin B12 ser/plasOrdered By: Alyce Flaherty on 04-17-2023 Cobalamin (Vitamin B12) [Mass/Vol] 494 pg/mL 180-914 [facility] Vitamin D+Metabolites [Mass/ volume] in Serum or PlasmaOrdered By: Alyce Flaherty on 04-17-2023 Vitamin D+Metabolites [Mass/Vol] 46.2 ng/mL 30-100 [facility] Comment on above: VITAMIN D STATUS 25( [place])VITAMIN D RANGE (ng/mL) Deficient <20 Insufficient 20 to <30Sufficient 30 to 100Reference: Eloisa MF,Gema ABRAHAM, Faustino SIMEON, et al. Evaluation,treatment, and prevention of vitamin D deficiency; an Endocrine Society clinical practice guideline. JCEM. 2010; 96(7):1911-30. WBC Auto (Bld) [#/Vol]Ordere d By: Alyce Flaherty on 04-17-2023 WBC (Bld) [#/Vol] 6.4 10*3/uL 3.8-11.6 [facility] Activated partial thrombopla stin time (aPTT) in platelet poor plasma by coagulation aOrdered By: Erickson Odonnell on 04-16-2023 aPTT Coag (PPP) [Time] 33.6 s 25.1-36.5 [facility] Bilirubin Test strip Ql (U)O rdered By: Erickson Odonnell on 04-16-2023 Bilirubin Ql (U) Negative Negative [facility] Color Auto (U)Ordered By: Saud Odonnell on 04-16-2023 Color (U) Yellow Yellow [facility] Creatine kinase [Enzymatic a ctivity/volume] in Serum or PlasmaOrdered By: Erickson Odonnell on 04-16-2023 CK [Catalytic activity/Vol] 57 U/L 30-223 [facility] Creatinine (Bld) [Mass/Vol]O rdered By: Erickson Odonnell on 04-16-2023 Creatinine [Mass/Vol] 0.7 mg/dL 0.6-1.3 [facility] Comment on above: ER/ESD physician is notified/shown all ISTAT results.Critical values may be confirmed by laboratory testing ifdeemed necessary by ER attending doctor. Ketones Auto test strip (U) [Mass/Vol]Ordered By: Erickson Odonnell on 04-16-2023 Ketones (U) [Mass/Vol] Negative Negative [facility] Laboratory - CoagulationOrde red By: Erickson Odonnell on 04-16-2023 PT Coag (PPP) [Time] 12.0 s 9.0-12.9 [facility] Monocyte distribution width [Entitic volume] in Blood by AutomatedOrdered By: Erickson Odonnell on 04-16-2023 Monocyte distribution width Auto (Bld) [Entitic vol] 16.91 % 0.00-20.00 [facility] Nitrite Test strip Ql (U)Ord ered By: Erickson Odonnell on 04-16-2023 Nitrite Ql (U) Negative Negative [facility] Platelet poor plasma interna tional normalized ratio (INR) by coagulation assay (relatOrdered By: Erickson Odonnell on 04-16-2023 INR Coag (PPP) [Relative time] 1.0 {INR} [facility] Comment on above: INR Therapeutic Rang e A) Pre- and Peroperative OAT started two weeks before surgery. NOT HIP SURGERY: 1.5 - 2.5 HIP SURGERY: 2 - 3B) Primary and secondary prevention of venous THROMBOSIS: 2 - 3C) Active venous thrombosis, pulmonary embolismand prevention of recurrent venous thrombosis: 2 - 3D) Prevention of arterial thromboembolismincluding patients with mechanical heart valves: 3 - 4.5 Protein Auto test strip (U) [Mass/Vol]Ordered By: Erickson Odonnell on 04-16-2023 Protein (U) [Mass/Vol] Negative Negative [facility] Specific gravity Auto test s trip (U) [Rel density]Ordered By: Erickson Odonnell on 04-16-2023 Specific gravity (U) [Rel density] 1.030 1.001-1.03 0 [facility] Troponin I.cardiac [Mass/vol ume] in Serum or Plasma by Detection limit <= 0.01 ng/Ordered By: Erickson Odonnell on 04-16-2023 Troponin I.cardiac DL <= 0.01 ng/mL [Mass/Vol] 4.8 pg/mL 0.0-15.0 [facility] Urine clarity by refractomet ry automatedOrdered By: Erickson Odonnell on 04-16-2023 Clarity Refractometry automated (U) Clear Clear [facility] Urine glucose measurement by automated test strip (mass/volume)Ordered By: Erickson Odonnell on 04-16-2023 Glucose Auto test strip (U) [Mass/Vol] Normal mg/dL Normal [facility] Urine hemoglobin detection b y automated test stripOrdered By: Erickson Odonnell on 04-16-2023 Hemoglobin Auto test strip Ql (U) Negative Negative [facility] Urine leukocyte esterase det ection by automated test stripOrdered By: Erickson Odonnell on 04-16-2023 Leukocyte esterase Auto test strip Ql (U) Negative Negative [facility] Urobilinogen Auto test strip (U) [Mass/Vol]Ordered By: Erickson Odonnell on 04-16-2023 Urobilinogen (U) [Mass/Vol] Normal mg/dL Normal [facility] pH Auto test strip (U)Ordere d By: Erickson Odonnell on 04-16-2023 pH (U) 6.5 [pH] 5.0-9.0 [facility] CNOVon 03-13-2023 CNOV Office Visit (NEHAAV ) ----- JENNIFER ROTHMAN ([id number]) 1960 F Date Time Provider Department 03/13/23 10:30 AM PO RIVERO During your visit today, we recorded the following information about you: Pulse Blood pressure Weight 112/minute 135/85 100.2 kg Po Rivero APRN.CNP 03/13/2023 11:15 AM Signed Outpatient [facility] - Follow Up Visit Accompanied by: Spouse Primary Problem List: ACTIVE PROBLEM LIST Alopecia Areata Obesity, Class III, BMI >= 40 Migraine Without Aura and Without Status Migrainosus, Not Intractable Intractable Chronic Migraine Without Aura and Without Status Migrainosus Chief Complaint: headaches LV: 03/07/21 Dr. 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 Jennifer Rothman has been previously approved for Calcitonin Gene Related Peptide Monoclonal Antibody (CGRP MAB) (Galcanezumab). 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 Since the last visit, the patient states that her headaches are slightly worse. She was last seen in our department over 2 years ago, plan at that time was to continue Depakote, Gabapentin and Emgality. She follows with a local neurologist and her treatment plan has changed significantly since her last visit. She is now on Ajovy (x4 months), Lyrica (chronic back pain), no longer on Depakote, and also started Qulipta. For migraine rescue she uses both Nurtec and Ubrelvy. She has had multiple hospital admissions in recent months for stroke-like symptoms, with severe headache occurring with most recent hospital admission. She received IV Depakote and steroids which has helped significantly Prior to January she says her headaches were well controlled. Had recent OSH hospitalization ([facility]) 03/03 -03/07 for right sided weakness in February: Assessment/Plan (1) Intractable headache: Assessment/Problem Details: DATA REVIEW: -CT of head is unremarkable -Previous CTA head and neck shows calcified plaque in the intracranial segments of the internal carotid arteries with the worst narrowing being at the junction of the right ophthalmic segment and supraclinoid segment on the right, and also with focal narrowing at the origin of one of the M2 segments on the right, and focal narrowing of the left HYDRAMATIC MECHANIC at the P2/P3 junction. -MRI shows no acute intracranial pathology, but demonstrates remote lacunar infarctions in the deep lora nuclei ASSESSMENT: Right hemisensory/hemimotor symptoms have resolved. Moderate left-sided stabbing headache persists. This event, along with her recent hospitalizations in January, all most likely demonstrate stroke like migrainous phenomena (a so-called complicated migraine). With the associated headache, TIA is less likely,though she does have significant cerebrovascular risk factors that are appropriately addressed with medication. PLAN: 1.? Continue the aspirin 81 mg daily and clopidogrel 75 mg daily. 2.? She is statin intolerant even to low doses only administered a few times perweek. 3. She can continue the valproic acid 500 mg twice daily until discharge. Her vascular risk factors preclude her from having DHE or triptan medications. 4. Recommend transitioning to p.o. medications and follow-up as outpatient Headache 1 Number of migraine headache days/month: 20 Migraine headache severity: 6/10 Number of NON-migraine headache days/month: 5 Total Number of headache days/month: 25 Number of headache free days/month: 5 Days missed from work or school in the last month: 0 days Preventative: Ajovy, lyrica 100 mg BID, Qulipta 60 mg Abortive: Nurtec, ubrelvy, tylenol Medications effective? sometimes # of doses of abortive medications per month: 12 Prior Therapies Duration of Use Dose Reason for Discontinuation Analgesic Diclofenac (Voltaren, Cataflam, Cambia) Anti-Convulsant Divalproex sodium (Depakote) Gabapentin (Neurontin) Anti-Depressan (more content not included)... Normal [facility] Glucose Glucometer (BldC) [M ass/Vol]Ordered By: Karen Mar on 03-07-2023 Glucose [Mass/Vol] 105 mg/dL [facility] Comment on above: Random Glucose Refer ence Range is dependent on time and content of last meal. Glucose of more than 200 mg/dL in a nonstressed, ambulatory subject supports the diagnosis of Diabetes Mellitus. No Panel InformationOrdered By: Karen Mar on 03-06-2023 Bedside Glucose Comment Glu2: cleaned meter [facility] Basophils Auto (Bld) [#/Vol] Ordered By: Dorys Palacios on 03-05-2023 Basophils (Bld) [#/Vol] 0.1 10*3/uL 0.0-0.2 [facility] Basophils/100 WBC Auto (Bld) Ordered By: Dorys Palacios on 03-05-2023 Basophils/100 WBC (Bld) 1.1 % . [facility] Calcium [Mass/volume] in Ser um or PlasmaOrdered By: Dorys Palacios on 03-05-2023 Calcium [Mass/Vol] 8.9 mg/dL 8.6-10.3 [facility] Carbon dioxide, total [Moles /volume] in Serum or PlasmaOrdered By: Dorys Palacios on 03-05-2023 CO2 [Moles/Vol] 28.1 mmol/L 21.0-31.0 [facility] Chloride [Moles/volume] in S marco antonio or PlasmaOrdered By: Dorys Palacios on 03-05-2023 Chloride [Moles/Vol] 104 mmol/L 98-107 [facility] Creatinine [Mass/volume] in Serum or PlasmaOrdered By: Dorys Palacios on 03-05-2023 Creatinine [Mass/Vol] 0.58 mg/dL 0.60-1.20 [facility] Eosinophils Auto (Bld) [#/Vo l]Ordered By: Dorys Palacios on 03-05-2023 Eosinophils (Bld) [#/Vol] 0.1 10*3/uL 0.0-0.45 [facility] Eosinophils/100 WBC Auto (Bl d)Ordered By: Dorys Palacios on 03-05-2023 Eosinophils/100 WBC (Bld) 2.1 % . [facility] Erythrocyte distribution wid th Auto (RBC) [Ratio]Ordered By: Dorys Palacios on 03-05-2023 Erythrocyte distribution width (RBC) [Ratio] 14.0 % 11.9-15.3 [facility] Glucose [Mass/volume] in Ser um or PlasmaOrdered By: Dorys Palacios on 03-05-2023 Glucose [Mass/Vol] 97 mg/dL 70-100 [facility] Comment on above: ADA recommended refe rence rangeRandom Glucose Reference Range is dependent on time and content of last meal. Glucose of more than 200 mg/dL in a nonstressed, ambulatory subject supports the diagnosis of Diabetes Mellitus. Hematocrit Auto (Bld) [Volum e fraction]Ordered By: Dorys Palacios on 03-05-2023 Hematocrit (Bld) [Volume fraction] 38.5 % 34.0-46.4 [facility] Hemoglobin [Mass/volume] in BloodOrdered By: Dorys Palacios on 03-05-2023 Hemoglobin (Bld) [Mass/Vol] 12.8 g/dL 11.8-15.4 [facility] Leukocytes [#/volume] correc janice for nucleated erythrocytes in Blood by Automated counOrdered By: Droys Palacios on 03-05-2023 WBC corrected for nucl RBC Auto (Bld) [#/Vol] 6.3 10*3/uL 3.8-11.6 [facility] Lymphocytes Auto (Bld) [#/Vo l]Ordered By: Dorys Palacios on 03-05-2023 Lymphocytes (Bld) [#/Vol] 1.8 10*3/uL 1.00-4.8 [facility] Lymphocytes/100 WBC Auto (Bl d)Ordered By: Dorys Palacios on 03-05-2023 Lymphocytes/100 WBC (Bld) 28.2 % . [facility] MCH Auto (RBC) [Entitic mass ]Ordered By: Dorys Palacios on 03-05-2023 MCH (RBC) [Entitic mass] 28.7 pg 24.7-34.3 [facility] MCHC Auto (RBC) [Mass/Vol]Or dered By: Dorys Palacios on 03-05-2023 MCHC (RBC) [Mass/Vol] 33.3 g/dL 32.0-35.0 [facility] MCV Auto (RBC) [Entitic vol] Ordered By: Dorys Palacios on 03-05-2023 MCV (RBC) [Entitic vol] 86.4 fL 80-100 [facility] Monocytes Auto (Bld) [#/Vol] Ordered By: Dorys Palacios on 03-05-2023 Monocytes (Bld) [#/Vol] 0.4 10*3/uL 0.0-0.8 [facility] Monocytes/100 WBC Auto (Bld) Ordered By: Dorys Palacios on 03-05-2023 Monocytes/100 WBC (Bld) 6.6 % . [facility] Neutrophils Auto (Bld) [#/Vo l]Ordered By: Dorys Palacios on 03-05-2023 Neutrophils (Bld) [#/Vol] 3.9 10*3/uL 1.8-7.7 [facility] Neutrophils/100 WBC Auto (Bl d)Ordered By: Dorys Palacios on 03-05-2023 Neutrophils/100 WBC (Bld) 62.0 % . [facility] No Panel InformationOrdered By: Dorys Palacios on 03-05-2023 Estimated GFR (CKD-EPI) > 60.0 mL/Min [facility] Creatinine Clearance (Chem 116.12 [facility] Nucleated erythrocytes [Pres ence] in Blood by Automated countOrdered By: Dorys Palacios on 03-05-2023 Nucleated RBC Auto Ql (Bld) 0.1 /100{WBC} 0-0.5 [facility] Platelet mean volume Auto (B ld) [Entitic vol]Ordered By: Dorys Palacios on 03-05-2023 Platelet mean volume (Bld) [Entitic vol] 9.2 fL 6.3-10.7 [facility] Platelets Auto (Bld) [#/Vol] Ordered By: Dorys Palacios on 03-05-2023 Platelets (Bld) [#/Vol] 219 10*3/uL 150-450 [facility] Potassium [Moles/volume] in Serum or PlasmaOrdered By: Dorys Palacios on 03-05-2023 Potassium [Moles/Vol] 4.1 mmol/L 3.5-5.1 [facility] RBC Auto (Bld) [#/Vol]Ordere d By: Dorys Palacios on 03-05-2023 RBC (Bld) [#/Vol] 4.45 10*6/uL 3.60-5.00 [facility] Serum or plasma anion gap de terminationOrdered By: Dorys Palacios on 03-05-2023 Anion gap [Moles/Vol] 11.0 mmol/L 6.0-15.0 [facility] Sodium [Moles/volume] in Ser um or PlasmaOrdered By: Dorys Palacios on 03-05-2023 Sodium [Moles/Vol] 139 mmol/L 136-145 [facility] Urea nitrogen [Mass/volume] in Serum or PlasmaOrdered By: Dorys Palacios on 03-05-2023 Urea nitrogen [Mass/Vol] 8 mg/dL 7-25 [facility] [facility] WBC Auto (Bld) [#/Vol]Ordere d By: Dorys Palacios on 03-05-2023 WBC (Bld) [#/Vol] 6.3 10*3/uL 3.8-11.6 [facility] Activated partial thrombopla stin time (aPTT) in platelet poor plasma by coagulation aOrdered By: Isidro Porras on 03-04-2023 aPTT Coag (PPP) [Time] 33.7 s 25.1-36.5 [facility] Alanine aminotransferase [En zymatic activity/volume] in Serum or PlasmaOrdered By: Isidro Porras on 03-04-2023 ALT [Catalytic activity/Vol] 19 U/L 7-52 [facility] Albumin [Mass/volume] in Ser um or Plasma by Bromocresol green (BCG) dye binding methoOrdered By: Isidro Porras on 03-04-2023 Albumin BCG dye [Mass/Vol] 4.4 g/dL 3.5-5.7 [facility] Alkaline phosphatase [Enzyma tic activity/volume] in Serum or PlasmaOrdered By: Isidro Porras on 03-04-2023 ALP [Catalytic activity/Vol] 75 U/L 34-104 [facility] Aspartate aminotransferase [ Enzymatic activity/volume] in Serum or PlasmaOrdered By: Isidro Porras on 03-04-2023 AST [Catalytic activity/Vol] 18 U/L 13-39 [facility] Bilirubin.total [Mass/volume ] in Serum or PlasmaOrdered By: Isidro Porras on 03-04-2023 Bilirubin [Mass/Vol] 0.5 mg/dL 0.3-1.0 [facility] Creatine kinase [Enzymatic a ctivity/volume] in Serum or PlasmaOrdered By: Isidro Porras 03-04-2023 CK [Catalytic activity/Vol] 54 U/L 30-223 [facility] Globulin Calc (S) [Mass/Vol] Ordered By: Isidro Porras on 03-04-2023 Globulin (S) [Mass/Vol] 2.0 g/dL [facility] - CoagulationOrde red By: Isidro Porras on 03-04-2023 PT Coag (PPP) [Time] 11.4 s 9.0-12.9 [facility] Monocyte distribution width [Entitic volume] in Blood by AutomatedOrdered By: Isidro Porras on 03-04-2023 Monocyte distribution width Auto (Bld) [Entitic vol] 16.66 % 0.00-20.00 [facility] Platelet poor plasma interna tional normalized ratio (INR) by coagulation assay (relatOrdered By: Isidro Porras on 03-04-2023 INR Coag (PPP) [Relative time] 1.0 {INR} [facility] Comment on above: INR Therapeutic Rang e A) Pre- and Peroperative OAT started two weeks before surgery. NOT HIP SURGERY: 1.5 - 2.5 HIP SURGERY: 2 - 3B) Primary and secondary prevention of venous THROMBOSIS: 2 - 3C) Active venous thrombosis, pulmonary embolismand prevention of recurrent venous thrombosis: 2 - 3D) Prevention of arterial thromboembolismincluding patients with mechanical heart valves: 3 - 4.5 Protein [Mass/volume] in Ser um or PlasmaOrdered By: Isidro Porras on 03-04-2023 Protein [Mass/Vol] 6.4 g/dL 6.4-8.9 [facility] Serum or plasma albumin/glob ulin mass ratioOrdered By: Isidro Porras on 03-04-2023 Albumin/Globulin [Mass ratio] 2.2 {ratio} [facility] Troponin I.cardiac [Mass/vol ume] in Serum or Plasma by Detection limit <= 0.01 ng/Ordered By: Isidro Porras on 03-04-2023 Troponin I.cardiac DL <= 0.01 ng/mL [Mass/Vol] 3.4 pg/mL 0.0-15.0 [facility] Glucose Glucometer (BldC) [M ass/Vol]Ordered By: Ibis Andersen on 02-17-2023 Glucose [Mass/Vol] 154 mg/dL [facility] Comment on above: Random Glucose Refer ence Range is dependent on time and content of last meal. Glucose of more than 200 mg/dL in a nonstressed, ambulatory subject supports the diagnosis of Diabetes Mellitus. No Panel InformationOrdered By: Ibis Andersen on 02-17-2023 Bedside Glucose Comment Glu2: cleaned meter [facility] Basophils Auto (Bld) [#/Vol] Ordered By: Alyce Flaherty on 02-16-2023 Basophils (Bld) [#/Vol] 0.1 10*3/uL 0.0-0.2 [facility] Basophils/100 WBC Auto (Bld) Ordered By: Alyce Flaherty on 02-16-2023 Basophils/100 WBC (Bld) 1.0 % . [facility] Calcium [Mass/volume] in Ser um or PlasmaOrdered By: Alyce Flaherty on 02-16-2023 Calcium [Mass/Vol] 8.5 mg/dL 8.6-10.3 [facility] Carbon dioxide, total [Moles /volume] in Serum or PlasmaOrdered By: Alyce Flaherty on 02-16-2023 CO2 [Moles/Vol] 25.1 mmol/L 21.0-31.0 [facility] Chloride [Moles/volume] in S marco antonio or PlasmaOrdered By: Alyce Flaherty on 02-16-2023 Chloride [Moles/Vol] 105 mmol/L 98-107 [facility] Creatinine [Mass/volume] in Serum or PlasmaOrdered By: Alyec Flaherty on 02-16-2023 Creatinine [Mass/Vol] 0.58 mg/dL 0.60-1.20 [facility] Eosinophils Auto (Bld) [#/Vo l]Ordered By: Alyce Flaherty on 02-16-2023 Eosinophils (Bld) [#/Vol] 0.1 10*3/uL 0.0-0.45 [facility] Eosinophils/100 WBC Auto (Bl d)Ordered By: Alyce Flaherty on 02-16-2023 Eosinophils/100 WBC (Bld) 1.9 % . [facility] Erythrocyte distribution wid th Auto (RBC) [Ratio]Ordered By: Alyce Flaherty on 02-16-2023 Erythrocyte distribution width (RBC) [Ratio] 13.9 % 11.9-15.3 [facility] Glucose [Mass/volume] in Ser um or PlasmaOrdered By: Alyce Flaherty on 02-16-2023 Glucose [Mass/Vol] 108 mg/dL 70-100 [facility] Comment on above: ADA recommended refe rence rangeRandom Glucose Reference Range is dependent on time and content of last meal. Glucose of more than 200 mg/dL in a nonstressed, ambulatory subject supports the diagnosis of Diabetes Mellitus. Hematocrit Auto (Bld) [Volum e fraction]Ordered By: Alyce Flaherty on 02-16-2023 Hematocrit (Bld) [Volume fraction] 39.1 % 34.0-46.4 [facility] Hemoglobin [Mass/volume] in BloodOrdered By: Alyce Flaherty on 02-16-2023 Hemoglobin (Bld) [Mass/Vol] 13.0 g/dL 11.8-15.4 [facility] Leukocytes [#/volume] correc janice for nucleated erythrocytes in Blood by Automated counOrdered By: Alyce Flaherty on 02-16-2023 WBC corrected for nucl RBC Auto (Bld) [#/Vol] 6.7 10*3/uL 3.8-11.6 [facility] Lymphocytes Auto (Bld) [#/Vo l]Ordered By: Alyce Flaherty on 02-16-2023 Lymphocytes (Bld) [#/Vol] 1.3 10*3/uL 1.00-4.8 [facility] Lymphocytes/100 WBC Auto (Bl d)Ordered By: Alyce Flaherty on 02-16-2023 Lymphocytes/100 WBC (Bld) 19.9 % . [facility] MCH Auto (RBC) [Entitic mass ]Ordered By: Alyce Flaherty on 02-16-2023 MCH (RBC) [Entitic mass] 29.0 pg 24.7-34.3 [facility] MCHC Auto (RBC) [Mass/Vol]Or dered By: Alyce Flaherty on 02-16-2023 MCHC (RBC) [Mass/Vol] 33.1 g/dL 32.0-35.0 [facility] MCV Auto (RBC) [Entitic vol] Ordered By: Alyce Flaherty on 02-16-2023 MCV (RBC) [Entitic vol] 87.6 fL 80-100 [facility] Monocytes Auto (Bld) [#/Vol] Ordered By: Alyce Flaherty on 02-16-2023 Monocytes (Bld) [#/Vol] 0.5 10*3/uL 0.0-0.8 [facility] Monocytes/100 WBC Auto (Bld) Ordered By: Alyce Flaherty on 02-16-2023 Monocytes/100 WBC (Bld) 6.8 % . [facility] Neutrophils Auto (Bld) [#/Vo l]Ordered By: Alyce Flaherty on 02-16-2023 Neutrophils (Bld) [#/Vol] 4.7 10*3/uL 1.8-7.7 [facility] Neutrophils/100 WBC Auto (Bl d)Ordered By: Alyce Flaherty on 02-16-2023 Neutrophils/100 WBC (Bld) 70.4 % . [facility] No Panel InformationOrdered By: Alyce Flaherty on 02-16-2023 Estimated GFR (CKD-EPI) > 60.0 mL/Min [facility] Creatinine Clearance (Chem 116.88 [facility] Nucleated erythrocytes [Pres ence] in Blood by Automated countOrdered By: Alyce Flaherty on 02-16-2023 Nucleated RBC Auto Ql (Bld) 0.1 /100{WBC} 0-0.5 [facility] Platelet mean volume Auto (B ld) [Entitic vol]Ordered By: Alyce Flaherty on 02-16-2023 Platelet mean volume (Bld) [Entitic vol] 9.0 fL 6.3-10.7 [facility] Platelets Auto (Bld) [#/Vol] Ordered By: Alyce Flaherty on 02-16-2023 Platelets (Bld) [#/Vol] 178 10*3/uL 150-450 [facility] Potassium [Moles/volume] in Serum or PlasmaOrdered By: Alyce Flaherty on 02-16-2023 Potassium [Moles/Vol] 3.9 mmol/L 3.5-5.1 [facility] RBC Auto (Bld) [#/Vol]Ordere d By: Alyce Flaherty on 02-16-2023 RBC (Bld) [#/Vol] 4.46 10*6/uL 3.60-5.00 [facility] Serum or plasma anion gap de terminationOrdered By: Alyce Flaherty on 02-16-2023 Anion gap [Moles/Vol] 11.8 mmol/L 6.0-15.0 [facility] Sodium [Moles/volume] in Ser um or PlasmaOrdered By: Alyce Flaherty on 02-16-2023 Sodium [Moles/Vol] 138 mmol/L 136-145 [facility] Urea nitrogen [Mass/volume] in Serum or PlasmaOrdered By: Alyce Flaherty on 02-16-2023 Urea nitrogen [Mass/Vol] 9 mg/dL 7-25 [facility] WBC Auto (Bld) [#/Vol]Ordere d By: Alyce Flaherty on 02-16-2023 WBC (Bld) [#/Vol] 6.7 10*3/uL 3.8-11.6 [facility] Activated partial thrombopla stin time (aPTT) in platelet poor plasma by coagulation aOrdered By: Ernie Oliver on 02-15-2023 aPTT Coag (PPP) [Time] 31.3 s 25.1-36.5 [facility] Alanine aminotransferase [En zymatic activity/volume] in Serum or PlasmaOrdered By: Ernie Oliver on 02-15-2023 ALT [Catalytic activity/Vol] 18 U/L 752 [facility] Albumin [Mass/volume] in Ser um or Plasma by Bromocresol green (BCG) dye binding methoOrdered By: Ernie Oliver on 02-15-2023 Albumin BCG dye [Mass/Vol] 4.0 g/dL 3.5-5.7 [facility] Alkaline phosphatase [Enzyma tic activity/volume] in Serum or PlasmaOrdered By: Ernie Oliver on 02-15-2023 ALP [Catalytic activity/Vol] 65 U/L 34-104 [facility] Aspartate aminotransferase [ Enzymatic activity/volume] in Serum or PlasmaOrdered By: Ernie Oliver on 02-15-2023 AST [Catalytic activity/Vol] 16 U/L 13-39 [facility] Bilirubin Test strip Ql (U)O rdered By: Ernie Oliver on 02-15-2023 Bilirubin Ql (U) Negative Negative [facility] Bilirubin.total [Mass/volume ] in Serum or PlasmaOrdered By: Ernie Oliver on 02-15-2023 Bilirubin [Mass/Vol] 0.4 mg/dL 0.3-1.0 [facility] Color Auto (U)Ordered By: Geovany Oliver on 02-15-2023 Color (U) Yellow Yellow [facility] Creatine kinase [Enzymatic a ctivity/volume] in Serum or PlasmaOrdered By: Ernie Oliver on 02-15-2023 CK [Catalytic activity/Vol] 52 U/L 30-223 [facility] Globulin Calc (S) [Mass/Vol] Ordered By: Ernie Oliver on 02-15-2023 Globulin (S) [Mass/Vol] 2.3 g/dL [facility] Glucose Glucometer (BldC) [M ass/Vol]Ordered By: Ibis Andersen on 02-15-2023 Glucose [Mass/Vol] 123 mg/dL [facility] Comment on above: Random Glucose Refer ence Range is dependent on time and content of last meal. Glucose of more than 200 mg/dL in a nonstressed, ambulatory subject supports the diagnosis of Diabetes Mellitus. Ketones Auto test strip (U) [Mass/Vol]Ordered By: Ernie Oliver on 02-15-2023 Ketones (U) [Mass/Vol] Negative Negative [facility] - CoagulationOrde red By: Ernie Oliver on 02-15-2023 PT Coag (PPP) [Time] 10.7 s 9.0-12.9 [facility] Monocyte distribution width [Entitic volume] in Blood by AutomatedOrdered By: Ernie Oliver on 02-15-2023 Monocyte distribution width Auto (Bld) [Entitic vol] 17.72 % 0.00-20.00 [facility] Nitrite Test strip Ql (U)Ord ered By: Ernie Oliver on 02-15-2023 Nitrite Ql (U) Negative Negative [facility] No Panel InformationOrdered By: Ibis Andersen on 02-15-2023 Bedside Glucose #2 Comment Cleaned meter [facility] Bedside Glucose Comment See comment [facility] Comment on above: Glu2: WILL NOTIFY /RN Platelet poor plasma interna tional normalized ratio (INR) by coagulation assay (relatOrdered By: Ernie Oliver on 02-15-2023 INR Coag (PPP) [Relative time] 0.9 {INR} [facility] Comment on above: INR Therapeutic Rang e A) Pre- and Peroperative OAT started two weeks before surgery. NOT HIP SURGERY: 1.5 - 2.5 HIP SURGERY: 2 - 3B) Primary and secondary prevention of venous THROMBOSIS: 2 - 3C) Active venous thrombosis, pulmonary embolismand prevention of recurrent venous thrombosis: 2 - 3D) Prevention of arterial thromboembolismincluding patients with mechanical heart valves: 3 - 4.5 Protein Auto test strip (U) [Mass/Vol]Ordered By: Ernie Oliver on 02-15-2023 Protein (U) [Mass/Vol] Negative Negative [facility] Protein [Mass/volume] in Ser um or PlasmaOrdered By: Ernie Oliver on 02-15-2023 Protein [Mass/Vol] 6.3 g/dL 6.4-8.9 [facility] Serum or plasma albumin/glob ulin mass ratioOrdered By: Ernie Oliver on 02-15-2023 Albumin/Globulin [Mass ratio] 1.7 {ratio} [facility] Specific gravity Auto test s trip (U) [Rel density]Ordered By: Ernie Oliver on 02-15-2023 Specific gravity (U) [Rel density] 1.010 1.001-1.03 0 [facility] Thyrotropin [Units/volume] i n Serum or PlasmaOrdered By: Alyce Flaherty on 02-15-2023 TSH Qn 0.25 m[IU]/L 0.45-5.33 [facility] Troponin I.cardiac [Mass/vol ume] in Serum or Plasma by Detection limit <= 0.01 ng/Ordered By: Ernie Oliver on 02-15-2023 Troponin I.cardiac DL <= 0.01 ng/mL [Mass/Vol] 5.6 pg/mL 0.0-15.0 [facility] Urine clarity by refractomet ry automatedOrdered By: Ernie Oliver on 02-15-2023 Clarity Refractometry automated (U) Clear Clear [facility] Urine glucose measurement by automated test strip (mass/volume)Ordered By: Ernie Oliver on 02-15-2023 Glucose Auto test strip (U) [Mass/Vol] Normal mg/dL Normal [facility] Urine hemoglobin detection b y automated test stripOrdered By: Ernie Oliver on 02-15-2023 Hemoglobin Auto test strip Ql (U) Negative Negative [facility] Urine leukocyte esterase det ection by automated test stripOrdered By: Ernie Oliver on 02-15-2023 Leukocyte esterase Auto test strip Ql (U) Negative Negative [facility] Urobilinogen Auto test strip (U) [Mass/Vol]Ordered By: Ernie Oliver on 02-15-2023 Urobilinogen (U) [Mass/Vol] Normal mg/dL Normal [facility] Vitamin B12 ser/plasOrdered By: Alyce Flaherty on 02-15-2023 Cobalamin (Vitamin B12) [Mass/Vol] 177 pg/mL 180-914 [facility] Vitamin D+Metabolites [Mass/ volume] in Serum or PlasmaOrdered By: Alyce Flaherty on 02-15-2023 Vitamin D+Metabolites [Mass/Vol] 36.9 ng/mL 30-100 [facility] Comment on above: VITAMIN D STATUS 25( [place])VITAMIN D RANGE (ng/mL) Deficient <20 Insufficient 20 to <30Sufficient 30 to 100Reference: Eloisa MF,Gema ABRAHAM, Faustino SIMEON, et al. Evaluation,treatment, and prevention of vitamin D deficiency; an Endocrine Society clinical practice guideline. JCEM. 2010; 96(7):1911-30. pH Auto test strip (U)Ordere d By: Ernie Oliver on 02-15-2023 pH (U) 8.0 [pH] 5.0-9.0 [facility] Basophils Auto (Bld) [#/Vol] Ordered By: Anjali Rosario on 01-27-2023 Basophils (Bld) [#/Vol] 0.0 10*3/uL 0.0-0.2 [facility] Basophils/100 WBC Auto (Bld) Ordered By: Anjali Rosario on 01-27-2023 Basophils/100 WBC (Bld) 0.4 % . [facility] Calcium [Mass/volume] in Ser um or PlasmaOrdered By: Anjali Rosario on 01-27-2023 Calcium [Mass/Vol] 8.9 mg/dL 8.6-10.3 [facility] Carbon dioxide, total [Moles /volume] in Serum or PlasmaOrdered By: Anjali Rosario on 01-27-2023 CO2 [Moles/Vol] 27.8 mmol/L 21.0-31.0 [facility] Chloride [Moles/volume] in S marco antonio or PlasmaOrdered By: Anjali Rosario on 01-27-2023 Chloride [Moles/Vol] 103 mmol/L 98-107 [facility] Cholesterol [Mass/volume] in Serum or PlasmaOrdered By: Anjali Rosario on 01-27-2023 Cholesterol [Mass/Vol] 177 mg/dL 140-200 [facility] Comment on above: Chol less than 200 m g/dl low riskChol 201-239 mg/dl borderline riskChol 240 mg/dl and greater high risk Cholesterol in LDL Calc [Mas s/Vol]Ordered By: Anjali Rosario on 01-27-2023 Cholesterol in LDL [Mass/Vol] 106 mg/dL 0-100 [facility] Comment on above: LDL ATP III CLASSIFI CATIONLDL less than 100 mg/dL OptimalLDL 100-129 mg/dL Near or above optimalLDL 130-159 mg/dL Borderline highLDL 160-189 mg/dL HighLDL greater than 189 mg/dL Very high Cholesterol in VLDL Calc [Ma ss/Vol]Ordered By: Anjali Rosario on 01-27-2023 Cholesterol in VLDL [Mass/Vol] 14 mg/dL [facility] Creatinine [Mass/volume] in Serum or PlasmaOrdered By: Anjali Rosario on 01-27-2023 Creatinine [Mass/Vol] 0.65 mg/dL 0.60-1.20 [facility] Eosinophils Auto (Bld) [#/Vo l]Ordered By: Anjali Rosario on 01-27-2023 Eosinophils (Bld) [#/Vol] 0.0 10*3/uL 0.0-0.45 [facility] Eosinophils/100 WBC Auto (Bl d)Ordered By: Anjali Rosario on 01-27-2023 Eosinophils/100 WBC (Bld) 0.5 % . [facility] Erythrocyte distribution wid th Auto (RBC) [Ratio]Ordered By: Anjali Rosario on 01-27-2023 Erythrocyte distribution width (RBC) [Ratio] 13.8 % 11.9-15.3 [facility] Glucose Glucometer (BldC) [M ass/Vol]Ordered By: Jameson Posada on 01-27-2023 Glucose [Mass/Vol] 115 mg/dL [facility] Comment on above: Random Glucose Refer ence Range is dependent on time and content of last meal. Glucose of more than 200 mg/dL in a nonstressed, ambulatory subject supports the diagnosis of Diabetes Mellitus. Glucose [Mass/volume] in Ser um or PlasmaOrdered By: Anjali Rosario on 01-27-2023 Glucose [Mass/Vol] 99 mg/dL 70-100 [facility] Comment on above: ADA recommended refe rence rangeRandom Glucose Reference Range is dependent on time and content of last meal. Glucose of more than 200 mg/dL in a nonstressed, ambulatory subject supports the diagnosis of Diabetes Mellitus. Glucose mean value [Mass/vol ume] in Blood Estimated from glycated hemoglobinOrdered By: Anjali Rosario on 01-27-2023 Average glucose Estimated from glycated hemoglobin (Bld) [Mass/Vol] 131 mg/dL [facility] Hematocrit Auto (Bld) [Volum e fraction]Ordered By: Anjali Rosario on 01-27-2023 Hematocrit (Bld) [Volume fraction] 42.2 % 34.0-46.4 [facility] Hemoglobin A1c percentageOrd ered By: Anjali Rosario on 01-27-2023 HbA1c (Bld) [Mass fraction] 6.2 % 4.3-5.6 [facility] Comment on above: Increased risk for d iabetes: 5.7 - 6.4diabetes: >6.4glycemic control for adults with diabetes: <7.0 Hemoglobin [Mass/volume] in BloodOrdered By: Anjali Rosario on 01-27-2023 Hemoglobin (Bld) [Mass/Vol] 13.6 g/dL 11.8-15.4 [facility] Leukocytes [#/volume] correc janice for nucleated erythrocytes in Blood by Automated counOrdered By: Anjali Rosario on 01-27-2023 WBC corrected for nucl RBC Auto (Bld) [#/Vol] 8.3 10*3/uL 3.8-11.6 [facility] Lymphocytes Auto (Bld) [#/Vo l]Ordered By: Anjali Rosario on 01-27-2023 Lymphocytes (Bld) [#/Vol] 1.8 10*3/uL 1.00-4.8 [facility] Lymphocytes/100 WBC Auto (Bl d)Ordered By: Anjali Rosario on 01-27-2023 Lymphocytes/100 WBC (Bld) 22.4 % . [facility] MCH Auto (RBC) [Entitic mass ]Ordered By: Anjali Rosario on 01-27-2023 MCH (RBC) [Entitic mass] 28.5 pg 24.7-34.3 [facility] MCHC Auto (RBC) [Mass/Vol]Or dered By: Anjali Rosario on 01-27-2023 MCHC (RBC) [Mass/Vol] 32.3 g/dL 32.0-35.0 [facility] MCV Auto (RBC) [Entitic vol] Ordered By: Anjali Rosario on 01-27-2023 MCV (RBC) [Entitic vol] 88.3 fL 80-100 [facility] Monocytes Auto (Bld) [#/Vol] Ordered By: Anjali Rosario on 01-27-2023 Monocytes (Bld) [#/Vol] 0.4 10*3/uL 0.0-0.8 [facility] Monocytes/100 WBC Auto (Bld) Ordered By: Anjali Rosario on 01-27-2023 Monocytes/100 WBC (Bld) 5.1 % . [facility] Neutrophils Auto (Bld) [#/Vo l]Ordered By: Anjali Rosario on 01-27-2023 Neutrophils (Bld) [#/Vol] 5.9 10*3/uL 1.8-7.7 [facility] Neutrophils/100 WBC Auto (Bl d)Ordered By: Anjali Rosario on 01-27-2023 Neutrophils/100 WBC (Bld) 71.6 % . [facility] No Panel InformationOrdered By: Anjali Rosario on 01-27-2023 Estimated GFR (CKD-EPI) > 60.0 mL/Min [facility] Creatinine Clearance (Chem 103.96 [facility] Nucleated erythrocytes [Pres ence] in Blood by Automated countOrdered By: Anjali Rosario on 01-27-2023 Nucleated RBC Auto Ql (Bld) 0.2 /100{WBC} 0-0.5 [facility] Platelet mean volume Auto (B ld) [Entitic vol]Ordered By: Anjali Rosario on 01-27-2023 Platelet mean volume (Bld) [Entitic vol] 10.2 fL 6.3-10.7 [facility] Platelets Auto (Bld) [#/Vol] Ordered By: Anjali Rosario on 01-27-2023 Platelets (Bld) [#/Vol] 155 10*3/uL 150-450 [facility] Comment on above: Delta: 219 on Potassium [Moles/volume] in Serum or PlasmaOrdered By: Anjali Rosario on 01-27-2023 Potassium [Moles/Vol] 4.3 mmol/L 3.5-5.1 [facility] RBC Auto (Bld) [#/Vol]Ordere d By: Anjali Rosario on 01-27-2023 RBC (Bld) [#/Vol] 4.78 10*6/uL 3.60-5.00 [facility] Serum or plasma anion gap de terminationOrdered By: Anjali Rosario on 01-27-2023 Anion gap [Moles/Vol] 12.5 mmol/L 6.0-15.0 [facility] Serum or plasma high density lipoprotein (HDL) cholesterol measurementOrdered By: Anjali Rosario on 01-27-2023 Cholesterol in HDL [Mass/Vol] 57 mg/dL 35-85 [facility] Comment on above: HDL CHOL ATP-III CLA SSIFICATION Cardiovascular RiskHDL > or equal to 60 mg/dL LOWHDL < 40 mg/dL HIGH Serum or plasma total choles terol/high density lipoprotein (HDL) cholesterol mass ratOrdered By: Anjali Rosario on 01-27-2023 Cholesterol.total/Chol esterol in HDL [Mass ratio] 3.1 {ratio} <5.0 [facility] Sodium [Moles/volume] in Ser um or PlasmaOrdered By: Anjali Rosario on 01-27-2023 Sodium [Moles/Vol] 139 mmol/L 136-145 [facility] Triglyceride [Mass/volume] i n Serum or PlasmaOrdered By: Anjali Rosario on 01-27-2023 Triglyceride [Mass/Vol] 72 mg/dL 0-149 [facility] Comment on above: TRIG ATP III CLASSIF ICATIONTRIG less than 150 mg/dL NormalTRIG 150-199 mg/dL Borderline highTRIG 200-500 mg/dL High TRIG greater than 500 mg/dL Very highStandard traceable to the Center for Disease Conrtrol and Prevention (CDC) test method. Urea nitrogen [Mass/volume] in Serum or PlasmaOrdered By: Anjali Rosario on 01-27-2023 Urea nitrogen [Mass/Vol] 15 mg/dL 7-25 [facility] WBC Auto (Bld) [#/Vol]Ordere d By: Anjali Rosario on 01-27-2023 WBC (Bld) [#/Vol] 8.3 10*3/uL 3.8-11.6 [facility] Activated partial thrombopla stin time (aPTT) in platelet poor plasma by coagulation aOrdered By: Ernie Oliver on 01-26-2023 aPTT Coag (PPP) [Time] 31.9 s 25.1-36.5 [facility] Alanine aminotransferase [En zymatic activity/volume] in Serum or PlasmaOrdered By: Ernie Oliver on 01-26-2023 ALT [Catalytic activity/Vol] 17 U/L 7-52 [facility] Albumin [Mass/volume] in Ser um or Plasma by Bromocresol green (BCG) dye binding methoOrdered By: Ernie Oliver on 01-26-2023 Albumin BCG dye [Mass/Vol] 4.4 g/dL 3.5-5.7 [facility] Alkaline phosphatase [Enzyma tic activity/volume] in Serum or PlasmaOrdered By: Ernie Oliver on 01-26-2023 ALP [Catalytic activity/Vol] 71 U/L 34-104 [facility] Aspartate aminotransferase [ Enzymatic activity/volume] in Serum or PlasmaOrdered By: Ernie Oliver on 01-26-2023 AST [Catalytic activity/Vol] 18 U/L 13-39 [facility] Basophils Auto (Bld) [#/Vol] Ordered By: Ernie Oliver on 01-26-2023 Basophils (Bld) [#/Vol] 0.1 10*3/uL 0.0-0.2 [facility] Basophils/100 WBC Auto (Bld) Ordered By: Ernie Oliver on 01-26-2023 Basophils/100 WBC (Bld) 0.8 % . [facility] Bilirubin.total [Mass/volume ] in Serum or PlasmaOrdered By: Ernie Oliver on 01-26-2023 Bilirubin [Mass/Vol] 0.5 mg/dL 0.3-1.0 [facility] Calcium [Mass/volume] in Ser um or PlasmaOrdered By: Ernie Oliver on 01-26-2023 Calcium [Mass/Vol] 9.8 mg/dL 8.6-10.3 [facility] Carbon dioxide, total [Moles /volume] in Serum or PlasmaOrdered By: Ernie Oliver on 01-26-2023 CO2 [Moles/Vol] 22.1 mmol/L 21.0-31.0 [facility] Chloride [Moles/volume] in S marco antonio or PlasmaOrdered By: Ernie Oliver on 01-26-2023 Chloride [Moles/Vol] 102 mmol/L 98-107 [facility] Creatine kinase [Enzymatic a ctivity/volume] in Serum or PlasmaOrdered By: Ernie Oliver on 01-26-2023 CK [Catalytic activity/Vol] 76 U/L 30-223 [facility] Creatinine [Mass/volume] in Serum or PlasmaOrdered By: Ernie Oliver on 01-26-2023 Creatinine [Mass/Vol] 0.66 mg/dL 0.60-1.20 [facility] Eosinophils Auto (Bld) [#/Vo l]Ordered By: Ernie Oliver on 01-26-2023 Eosinophils (Bld) [#/Vol] 0.2 10*3/uL 0.0-0.45 [facility] Eosinophils/100 WBC Auto (Bl d)Ordered By: Ernie Oliver on 01-26-2023 Eosinophils/100 WBC (Bld) 2.1 % . [facility] Erythrocyte distribution wid th Auto (RBC) [Ratio]Ordered By: Ernie Oliver on 01-26-2023 Erythrocyte distribution width (RBC) [Ratio] 13.8 % 11.9-15.3 [facility] Globulin Calc (S) [Mass/Vol] Ordered By: Ernie Oliver on 01-26-2023 Globulin (S) [Mass/Vol] 2.3 g/dL [facility] Glucose Glucometer (BldC) [M ass/Vol]Ordered By: MUSHTAQ KELLY on 01-26-2023 Glucose [Mass/Vol] 162 mg/dL [facility] Comment on above: Random Glucose Refer ence Range is dependent on time and content of last meal. Glucose of more than 200 mg/dL in a nonstressed, ambulatory subject supports the diagnosis of Diabetes Mellitus. Glucose [Mass/volume] in Ser um or PlasmaOrdered By: Ernie Oliver on 01-26-2023 Glucose [Mass/Vol] 140 mg/dL 70-100 [facility] Comment on above: ADA recommended refe rence rangeRandom Glucose Reference Range is dependent on time and content of last meal. Glucose of more than 200 mg/dL in a nonstressed, ambulatory subject supports the diagnosis of Diabetes Mellitus. Hematocrit Auto (Bld) [Volum e fraction]Ordered By: Ernie Oliver on 01-26-2023 Hematocrit (Bld) [Volume fraction] 41.4 % 34.0-46.4 [facility] Hemoglobin [Mass/volume] in BloodOrdered By: Ernie Oliver on 01-26-2023 Hemoglobin (Bld) [Mass/Vol] 13.4 g/dL 11.8-15.4 [facility] Laboratory - CoagulationOrde red By: Ernie Oliver on 01-26-2023 PT Coag (PPP) [Time] 11.4 s 9.0-12.9 [facility] Leukocytes [#/volume] correc janice for nucleated erythrocytes in Blood by Automated counOrdered By: Ernie Oliver on 01-26-2023 WBC corrected for nucl RBC Auto (Bld) [#/Vol] 7.3 10*3/uL 3.8-11.6 [facility] Lymphocytes Auto (Bld) [#/Vo l]Ordered By: Ernie Oliver on 01-26-2023 Lymphocytes (Bld) [#/Vol] 2.6 10*3/uL 1.00-4.8 [facility] Lymphocytes/100 WBC Auto (Bl d)Ordered By: Ernie Oliver on 01-26-2023 Lymphocytes/100 WBC (Bld) 35.1 % . [facility] MCH Auto (RBC) [Entitic mass ]Ordered By: Ernie Oliver on 01-26-2023 MCH (RBC) [Entitic mass] 28.4 pg 24.7-34.3 [facility] MCHC Auto (RBC) [Mass/Vol]Or dered By: Ernie Oliver on 01-26-2023 MCHC (RBC) [Mass/Vol] 32.5 g/dL 32.0-35.0 [facility] MCV Auto (RBC) [Entitic vol] Ordered By: Ernie Oliver on 01-26-2023 MCV (RBC) [Entitic vol] 87.5 fL 80-100 [facility] Monocyte distribution width [Entitic volume] in Blood by AutomatedOrdered By: Ernie Oliver on 01-26-2023 Monocyte distribution width Auto (Bld) [Entitic vol] 18.96 % 0.00-20.00 [facility] Monocytes Auto (Bld) [#/Vol] Ordered By: Ernie Oliver on 01-26-2023 Monocytes (Bld) [#/Vol] 0.4 10*3/uL 0.0-0.8 [facility] Monocytes/100 WBC Auto (Bld) Ordered By: Ernie Oliver on 01-26-2023 Monocytes/100 WBC (Bld) 5.5 % . [facility] Neutrophils Auto (Bld) [#/Vo l]Ordered By: Ernie Oliver on 01-26-2023 Neutrophils (Bld) [#/Vol] 4.1 10*3/uL 1.8-7.7 [facility] Neutrophils/100 WBC Auto (Bl d)Ordered By: Ernie Oliver on 01-26-2023 Neutrophils/100 WBC (Bld) 56.5 % . [facility] No Panel InformationOrdered By: Ernie Oliver on 01-26-2023 Estimated GFR (CKD-EPI) > 60.0 mL/Min [facility] Creatinine Clearance (Chem 105.73 [facility] Nucleated erythrocytes [Pres ence] in Blood by Automated countOrdered By: Ernie Oliver on 01-26-2023 Nucleated RBC Auto Ql (Bld) 0.3 /100{WBC} 0-0.5 [facility] Platelet mean volume Auto (B ld) [Entitic vol]Ordered By: Ernie Oliver on 01-26-2023 Platelet mean volume (Bld) [Entitic vol] 9.3 fL 6.3-10.7 [facility] Platelet poor plasma interna tional normalized ratio (INR) by coagulation assay (relatOrdered By: Ernie Oliver on 01-26-2023 INR Coag (PPP) [Relative time] 1.0 {INR} [facility] Comment on above: INR Therapeutic Rang e A) Pre- and Peroperative OAT started two weeks before surgery. NOT HIP SURGERY: 1.5 - 2.5 HIP SURGERY: 2 - 3B) Primary and secondary prevention of venous THROMBOSIS: 2 - 3C) Active venous thrombosis, pulmonary embolismand prevention of recurrent venous thrombosis: 2 - 3D) Prevention of arterial thromboembolismincluding patients with mechanical heart valves: 3 - 4.5 Platelets Auto (Bld) [#/Vol] Ordered By: Ernie Oliver on 01-26-2023 Platelets (Bld) [#/Vol] 219 10*3/uL 150-450 [facility] Potassium [Moles/volume] in Serum or PlasmaOrdered By: Ernie Oliver on 01-26-2023 Potassium [Moles/Vol] 4.1 mmol/L 3.5-5.1 [facility] Protein [Mass/volume] in Ser um or PlasmaOrdered By: Ernie Oliver on 01-26-2023 Protein [Mass/Vol] 6.7 g/dL 6.4-8.9 [facility] RBC Auto (Bld) [#/Vol]Ordere d By: Ernie Oliver on 01-26-2023 RBC (Bld) [#/Vol] 4.73 10*6/uL 3.60-5.00 [facility] Serum or plasma albumin/glob ulin mass ratioOrdered By: Ernie Oliver on 01-26-2023 Albumin/Globulin [Mass ratio] 1.9 {ratio} [facility] Serum or plasma anion gap de terminationOrdered By: Ernie Oliver on 01-26-2023 Anion gap [Moles/Vol] 16.0 mmol/L 6.0-15.0 [facility] Sodium [Moles/volume] in Ser um or PlasmaOrdered By: Ernie Oliver on 01-26-2023 Sodium [Moles/Vol] 136 mmol/L 136-145 [facility] Troponin I.cardiac [Mass/vol ume] in Serum or Plasma by Detection limit <= 0.01 ng/Ordered By: Ernie Oliver on 01-26-2023 Troponin I.cardiac DL <= 0.01 ng/mL [Mass/Vol] 3.7 pg/mL 0.0-15.0 [facility] Urea nitrogen [Mass/volume] in Serum or PlasmaOrdered By: Ernie Oliver on 01-26-2023 Urea nitrogen [Mass/Vol] 13 mg/dL 7-25 [facility] WBC Auto (Bld) [#/Vol]Ordere d By: Ernie Oliver on 01-26-2023 WBC (Bld) [#/Vol] 7.3 10*3/uL 3.8-11.6 [facility] Alanine aminotransferase [En zymatic activity/volume] in Serum or PlasmaOrdered By: Leonardo Braden on 12-30-2022 ALT [Catalytic activity/Vol] 16 U/L 7-52 [facility] Albumin [Mass/volume] in Ser um or Plasma by Bromocresol green (BCG) dye binding methoOrdered By: Leonardo Braden on 12-30-2022 Albumin BCG dye [Mass/Vol] 4.3 g/dL 3.5-5.7 [facility] Alkaline phosphatase [Enzyma tic activity/volume] in Serum or PlasmaOrdered By: Leonardo Braden on 12-30-2022 ALP [Catalytic activity/Vol] 58 U/L 34-104 [facility] Aspartate aminotransferase [ Enzymatic activity/volume] in Serum or PlasmaOrdered By: Leonardo Braden on 12-30-2022 AST [Catalytic activity/Vol] 16 U/L 13-39 [facility] Automated erythrocytes count in urine sediment (number/area)Ordered By: Leonardo Braden on 12-30-2022 RBC Auto (Urine sed) [#/Area] 3-4 [HPF] 0-4 [facility] Automated leukocytes count i n urine sediment (number/area)Ordered By: Leonardo Braden on 12-30-2022 WBC Auto (Urine sed) [#/Area] 20-49 [HPF] 0-4 [facility] Basophils Auto (Bld) [#/Vol] Ordered By: Leonardo Braden on 12-30-2022 Basophils (Bld) [#/Vol] 0.1 10*3/uL 0.0-0.2 [facility] Basophils/100 WBC Auto (Bld) Ordered By: Leonardo Braden on 12-30-2022 Basophils/100 WBC (Bld) 1.2 % . [facility] Bilirubin Test strip Ql (U)O rdered By: Leonardo Braden on 12-30-2022 Bilirubin Ql (U) Negative Negative [facility] Bilirubin.direct [Mass/volum e] in Serum or PlasmaOrdered By: Leonardo Braden on 12-30-2022 Bilirubin.direct [Mass/Vol] 0.00 mg/dL 0.03-0.18 [facility] Comment on above: Hemolysis is present at a level that could interfere with the result.If the DBIL is less than 0.1, IBIL is not able to becalculated. Bilirubin.total [Mass/volume ] in Serum or PlasmaOrdered By: Leonardo Braden on 12-30-2022 Bilirubin [Mass/Vol] 0.4 mg/dL 0.3-1.0 [facility] Calcium [Mass/volume] in Ser um or PlasmaOrdered By: Leonardo Braden on 12-30-2022 Calcium [Mass/Vol] 9.6 mg/dL 8.6-10.3 [facility] Carbon dioxide, total [Moles /volume] in Serum or PlasmaOrdered By: Leonardo Braden on 12-30-2022 CO2 [Moles/Vol] 28.2 mmol/L 21.0-31.0 [facility] Chloride [Moles/volume] in S marco antonio or PlasmaOrdered By: Leonardo Braden on 12-30-2022 Chloride [Moles/Vol] 103 mmol/L 98-107 [facility] Color Auto (U)Ordered By: Courtney Braden on 12-30-2022 Color (U) Yellow Yellow [facility] Creatinine [Mass/volume] in Serum or PlasmaOrdered By: Leonardo Braden on 12-30-2022 Creatinine [Mass/Vol] 0.64 mg/dL 0.60-1.20 [facility] Eosinophils Auto (Bld) [#/Vo l]Ordered By: Leonardo Braden on 12-30-2022 Eosinophils (Bld) [#/Vol] 0.1 10*3/uL 0.0-0.45 [facility] Eosinophils/100 WBC Auto (Bl d)Ordered By: Leonardo Braden on 12-30-2022 Eosinophils/100 WBC (Bld) 2.0 % . [facility] Erythrocyte distribution wid th Auto (RBC) [Ratio]Ordered By: Leonardo Braden on 12-30-2022 Erythrocyte distribution width (RBC) [Ratio] 13.8 % 11.9-15.3 [facility] Globulin Calc (S) [Mass/Vol] Ordered By: Leonardo Braden on 12-30-2022 Globulin (S) [Mass/Vol] 2.5 g/dL [facility] Glucose [Mass/volume] in Ser um or PlasmaOrdered By: Leonardo Braden on 12-30-2022 Glucose [Mass/Vol] 124 mg/dL 70-100 [facility] Comment on above: ADA recommended refe rence rangeRandom Glucose Reference Range is dependent on time and content of last meal. Glucose of more than 200 mg/dL in a nonstressed, ambulatory subject supports the diagnosis of Diabetes Mellitus. Hematocrit Auto (Bld) [Volum e fraction]Ordered By: Leonardo Braden on 12-30-2022 Hematocrit (Bld) [Volume fraction] 39.9 % 34.0-46.4 [facility] Hemoglobin [Mass/volume] in BloodOrdered By: Leonardo Braden on 12-30-2022 Hemoglobin (Bld) [Mass/Vol] 13.1 g/dL 11.8-15.4 [facility] Ketones Auto test strip (U) [Mass/Vol]Ordered By: Leonardo Braden on 12-30-2022 Ketones (U) [Mass/Vol] Trace Negative [facility] Laboratory - UrinalysisOrder ed By: Leonardo Braden on 12-30-2022 Hyaline casts LM Ql (Urine sed) 0-8 [LPF] 0-8 [facility] Leukocytes [#/volume] correc janice for nucleated erythrocytes in Blood by Automated counOrdered By: Leonardo Braden on 12-30-2022 WBC corrected for nucl RBC Auto (Bld) [#/Vol] 6.9 10*3/uL 3.8-11.6 [facility] Lipase [Enzymatic activity/v olume] in Serum or PlasmaOrdered By: Leonardo Braden on 12-30-2022 Lipase [Catalytic activity/Vol] 69.0 U/L 11.0-82.0 [facility] Lymphocytes Auto (Bld) [#/Vo l]Ordered By: Leonardo Braden on 12-30-2022 Lymphocytes (Bld) [#/Vol] 2.1 10*3/uL 1.00-4.8 [facility] Lymphocytes/100 WBC Auto (Bl d)Ordered By: Leonardo Braden on 12-30-2022 Lymphocytes/100 WBC (Bld) 30.0 % . [facility] MCH Auto (RBC) [Entitic mass ]Ordered By: Leonardo Braden on 12-30-2022 MCH (RBC) [Entitic mass] 28.8 pg 24.7-34.3 [facility] MCHC Auto (RBC) [Mass/Vol]Or dered By: Leonardo Braden on 12-30-2022 MCHC (RBC) [Mass/Vol] 32.8 g/dL 32.0-35.0 [facility] MCV Auto (RBC) [Entitic vol] Ordered By: Leonardo Braden on 12-30-2022 MCV (RBC) [Entitic vol] 87.8 fL 80-100 [facility] Monocytes Auto (Bld) [#/Vol] Ordered By: Leonardo Braden on 12-30-2022 Monocytes (Bld) [#/Vol] 0.5 10*3/uL 0.0-0.8 [facility] Monocytes/100 WBC Auto (Bld) Ordered By: Leonardo Braden on 12-30-2022 Monocytes/100 WBC (Bld) 7.7 % . [facility] Neutrophils Auto (Bld) [#/Vo l]Ordered By: Leonardo Braden on 12-30-2022 Neutrophils (Bld) [#/Vol] 4.1 10*3/uL 1.8-7.7 [facility] Neutrophils/100 WBC Auto (Bl d)Ordered By: Leonardo Braden on 12-30-2022 Neutrophils/100 WBC (Bld) 59.1 % . [facility] Nitrite Test strip Ql (U)Ord ered By: Leonardo Braden on 12-30-2022 Nitrite Ql (U) Negative Negative [facility] No Panel InformationOrdered By: Leonardo Braden on 12-30-2022 Estimated GFR (CKD-EPI) > 60.0 mL/Min [facility] Creatinine Clearance (Chem 104.65 [facility] Nucleated erythrocytes [Pres ence] in Blood by Automated countOrdered By: Leonardo Braden on 12-30-2022 Nucleated RBC Auto Ql (Bld) 0.1 /100{WBC} 0-0.5 [facility] Platelet mean volume Auto (B ld) [Entitic vol]Ordered By: Leonardo Braden on 12-30-2022 Platelet mean volume (Bld) [Entitic vol] 8.9 fL 6.3-10.7 [facility] Platelets Auto (Bld) [#/Vol] Ordered By: Leonardo Braden on 12-30-2022 Platelets (Bld) [#/Vol] 209 10*3/uL 150-450 [facility] Potassium [Moles/volume] in Serum or PlasmaOrdered By: Leonardo Braden on 12-30-2022 Potassium [Moles/Vol] 4.1 mmol/L 3.5-5.1 [facility] Comment on above: Hemolysis is present at a level that could interfere with the result. Protein Auto test strip (U) [Mass/Vol]Ordered By: Leonardo Braden on 12-30-2022 Protein (U) [Mass/Vol] Trace mg/dL Negative [facility] Protein [Mass/volume] in Ser um or PlasmaOrdered By: Leonardo Braden on 12-30-2022 Protein [Mass/Vol] 6.8 g/dL 6.4-8.9 [facility] RBC Auto (Bld) [#/Vol]Ordere d By: Leonardo Braden on 12-30-2022 RBC (Bld) [#/Vol] 4.55 10*6/uL 3.60-5.00 [facility] Serum or plasma albumin/glob ulin mass ratioOrdered By: Leonardo Braden on 12-30-2022 Albumin/Globulin [Mass ratio] 1.7 {ratio} [facility] Serum or plasma anion gap de terminationOrdered By: Leonardo Braden on 12-30-2022 Anion gap [Moles/Vol] TNP [facility] Comment on above: Test not performed Serum or plasma non-glucuron idated bilirubin measurement (mass/volume)Ordered By: Leonardo Braden on 12-30-2022 Bilirubin.indirect [Mass/Vol] See comment [facility] Comment on above: Specimen hemolyzed, redraw requested Sodium [Moles/volume] in Ser um or PlasmaOrdered By: Leonardo Braden on 12-30-2022 Sodium [Moles/Vol] 138 mmol/L 136-145 [facility] Specific gravity Auto test s trip (U) [Rel density]Ordered By: Leonardo Braden on 12-30-2022 Specific gravity (U) [Rel density] 1.023 1.001-1.03 0 [facility] Squamous epithelial cells de tection in urine sediment by light microscopyOrdered By: Leonardo Braden on 12-30-2022 Epithelial cells.squamous LM Ql (Urine sed) 1-2 [HPF] 0-2 [facility] Urea nitrogen [Mass/volume] in Serum or PlasmaOrdered By: Leonardo Braden on 12-30-2022 Urea nitrogen [Mass/Vol] 12 mg/dL 7-25 [facility] Urine bacteria detection by automated methodOrdered By: Leonardo Braden on 12-30-2022 Bacteria Auto Ql (U) None seen None Seen [facility] Urine clarity by refractomet ry automatedOrdered By: Leonardo Braden on 12-30-2022 Clarity Refractometry automated (U) Turbid Clear [facility] Urine culture routineOrdered By: Leonardo Braden on 12-30-2022 Bacteria identified Cx Nom (U) Escherichia coli [facility] Urine glucose measurement by automated test strip (mass/volume)Ordered By: Leonardo Braden on 12-30-2022 Glucose Auto test strip (U) [Mass/Vol] Normal mg/dL Normal [facility] Urine hemoglobin detection b y automated test stripOrdered By: Leonardo Braden on 12-30-2022 Hemoglobin Auto test strip Ql (U) Negative Negative [facility] Urine leukocyte esterase det ection by automated test stripOrdered By: Leonardo Braden on 12-30-2022 Leukocyte esterase Auto test strip Ql (U) 2+ Negative [facility] Urobilinogen Auto test strip (U) [Mass/Vol]Ordered By: Leonardo Braden on 12-30-2022 Urobilinogen (U) [Mass/Vol] Normal mg/dL Normal [facility] WBC Auto (Bld) [#/Vol]Ordere d By: Leonardo Braden on 12-30-2022 WBC (Bld) [#/Vol] 6.9 10*3/uL 3.8-11.6 [facility] pH Auto test strip (U)Ordere d By: Leonardo Braden on 12-30-2022 pH (U) 8.5 [pH] 5.0-9.0 [facility] XR lumbar spine 6V w bending on 11-22-2022 XR lumbar spine 6V w bending XR/XR lumbar spine 6V w bending: M47.817 [employer] Other XR lumbar spine 6V w bending XR lumbar spine 6V w bending 11/22/2022 11:01 AM [employer] Other XR lumbar spine 6V w bending SIGNS AND SYMPTOMS: Bilateral leg numbness with tingling, chronic back pain [employer] Other XR lumbar spine 6V w bending PROTOCOLS: Frontal, lateral, and oblique radiographs of the lumbar spine [employer] Other XR lumbar spine 6V w bending COMPARISON: 07/12/2019 [employer] Other XR lumbar spine 6V w bending There is 4 mm of anterolisthesis of L4 upon L5 similar to the prior exam. There is mild disc height [employer] Other XR lumbar spine 6V w bending loss at L4-L5 and L5-S1. There is also mild disc height loss at T12-L1, L1-L2, and L2-L3 with [employer] Other XR lumbar spine 6V w bending anterior osteophyte formation. Facet hypertrophy is present at L3-L4 and L4-L5.. There is no [employer] Other XR lumbar spine 6V w bending fracture or destructive lesion. Flexion and extension view show no pathologic movement. [employer] Other XR lumbar spine 6V w bending The disk spaces are well-preserved. [employer] Other XR lumbar spine 6V w bending The sacrum and sacroiliac joints are normal. [employer] Other XR lumbar spine 6V w bending XR/XR lumbar spine 6V w bending [employer] Other XR lumbar spine 6V w bending There is 4 mm of anterolisthesis of L4 upon L5 secondary to facet hypertrophy. This is unchanged. [employer] Other XR lumbar spine 6V w bending No pathologic movement is noted on flexion or extension. [employer] Other XR lumbar spine 6V w bending Similar disc degenerative changes are present along with facet hypertrophy, as above. [employer] Other XR lumbar spine 6V w bending Impression dictated by: Woodrow Sahni M.D.11/22/2022 2:12 PM [employer] Other XR lumbar spine 6V w bending Transcribed By: FELECIA 11/22/22 [facility] [employer] Other XR lumbar spine 6V w bending Dictated By: Woodrow Sahni II, MD 11/22/22 [employer] Other XR lumbar spine 6V w bending 11/22/22 [facility] [employer] Other XR pelvis 1-2Von 11-22-2022 XR pelvis 1-2V [facility] [place] Other XR pelvis 1-2V [facility] [place] Other XR pelvis 1-2V [address] [place] [address] [place] Other XR pelvis 1-2[place] [address] No [facility] [place] Other XR pelvis 1-2V XRay Report [employer] Other XR pelvis 1-2V Signed [employer] Other XR pelvis 1-2V Patient: Jennifer Rothman MR#: [id number] [employer] Other XR pelvis 1-2V 5 [employer] Other XR pelvis 1-2V : 1960 Acct:[id number] [employer] Other XR pelvis 1-2V Age/Sex: 62 / F ADM Date: 11/22/22 [employer] Other XR pelvis 1-2V Loc: XD Room: Type: [facility] [employer] Other XR pelvis 1-2V Attending Dr: Melissa LUCIA [employer] Other XR pelvis 1-2V Copies to: KHARI Christopher [employer] Other XR pelvis 1-2V Ordering Provider: KHARI Christopher [employer] Other XR pelvis 1-2V Date of Service: 11/22/22 [employer] Other XR pelvis 1-2V XR/XR pelvis 1-2V: M47.817 [employer] Other XR pelvis 1-2V XR pelvis 1-2V 3/3/2 023 11:01 AM [employer] Other XR pelvis 1-2V SIGNS AND SYMPTOMS: Bilateral lower extremity numbness, chronic back pain [employer] Other XR pelvis 1-2V PROTOCOL: Frontal an d lateral radiographs of the pelvis [employer] Other XR pelvis 1-2V COMPARISON: None [facility] [employer] Other XR pelvis 1-2V FINDINGS: [employer] Other XR pelvis 1-2V . Degenerative rodriguez es are partly visualized in the lower lumbar spine. The sacroiliac joints are [employer] Other XR pelvis 1-2V preserved. The hips are grossly intact. There is no fracture or dislocation. [employer] Other XR pelvis 1-2V X R/XR pelvis 1-2V [employer] Other XR pelvis 1-2V IMPRESSION: [employer] Other XR pelvis 1-2V No acute bony injury. [employer] Other XR pelvis 1-2V Degenerative changes are partly visualized in the lower lumbar spine. [employer] Other XR pelvis 1-2V Impression dictated by: Woodrow Sahni M.D.11/22/2022 2:14 PM [employer] Other XR pelvis 1-2V Dictation Location: RADIO-PC-13 [employer] Other XR pelvis 1-2V Transcribed By: FELECIA 11/22/22 [facility] [employer] Other XR pelvis 1-2V Dictated By: Woodrow Sahni II, MD 11/22/22 [facility] [employer] Other XR pelvis 1-2V Signed By: [employer] Other XR pelvis 1-2V 11/22/22 [facility]4 [employer] Other A1C HEMOGLOBINon 2022 HbA1c (Bld) [Mass fraction] 5.7 % [employer] Other HbA1c (Bld) [Mass fraction]o n 2022 A1C HEMOGLOBIN [employer] Other TSH DL <= 0.005 mIU/L QnOrde red By: Isidro Gonzalez on 10-04-2022 TSH Qn 0.23 m[IU]/L 0.45-5.33 [facility] Basophils Auto (Bld) [#/Vol] Ordered By: Isidro Mast on 08-08-2022 Basophils (Bld) [#/Vol] 0.1 10*3/uL 0.0-0.2 [facility] Basophils/100 WBC Auto (Bld) Ordered By: Isidro Mast on 08-08-2022 Basophils/100 WBC (Bld) 1.2 % . [facility] Body fluid albumin measureme nt (mass/volume)Ordered By: Isidro Gonzalez on 08-08-2022 Albumin (Body fld) [Mass/Vol] 3.6 g/dL 3.2-5.5 [facility] Cholesterol [Mass/volume] in Serum or PlasmaOrdered By: Isidor Gonzalez on 08-08-2022 Cholesterol [Mass/Vol] 200 mg/dL 140-200 [facility] Comment on above: Chol less than 200 m g/dl low riskChol 201-239 mg/dl borderline riskChol 240 mg/dl and greater high risk Cholesterol in LDL Calc [Mas s/Vol]Ordered By: Isidro Gonzalez on 08-08-2022 Cholesterol in LDL [Mass/Vol] 114 mg/dL 0-100 [facility] Comment on above: LDL ATP III CLASSIFI CATIONLDL less than 100 mg/dL OptimalLDL 100-129 mg/dL Near or above optimalLDL 130-159 mg/dL Borderline highLDL 160-189 mg/dL HighLDL greater than 189 mg/dL Very high Cholesterol in VLDL Calc [Ma ss/Vol]Ordered By: Isidro Gonzalez on 08-08-2022 Cholesterol in VLDL [Mass/Vol] 38 mg/dL [facility] Creatinine [Mass/volume] in UrineOrdered By: Isidro Gonzalez on 08-08-2022 Creatinine (U) [Mass/Vol] 39.6 mg/dL [facility] Comment on above: No reference range e stablished Creatinine and Glomerular fi ltration rate.predicted panel (S/P/Bld)Ordered By: Isidro Gonzalez on 08-08-2022 Creatinine [Mass/Vol] 0.56 mg/dL 0.44-1.03 [facility] Eosinophils Auto (Bld) [#/Vo l]Ordered By: Isidro Lisa on 08-08-2022 Eosinophils (Bld) [#/Vol] 0.2 10*3/uL 0.0-0.45 [facility] Eosinophils/100 WBC Auto (Bl d)Ordered By: Isidro Lisa on 08-08-2022 Eosinophils/100 WBC (Bld) 3.9 % . [facility] Erythrocyte distribution wid th Auto (RBC) [Ratio]Ordered By: Isidro Lisa on 08-08-2022 Erythrocyte distribution width (RBC) [Ratio] 14.8 % 11.9-15.3 [facility] Estimated glomerular filtrat ion rate (GFR) non- AmericanOrdered By: [facility] on 08-08-2022 GFR/1.73 sq M.predicted among non-blacks MDRD (S/P/Bld) [Vol rate/Area] > 60 mL/Min [facility] Globulin Calc (S) [Mass/Vol] Ordered By: Isidro Lisa on 08-08-2022 Globulin (S) [Mass/Vol] 2.2 g/dL [facility] Hematocrit Auto (Bld) [Volum e fraction]Ordered By: [facility] on 08-08-2022 Hematocrit (Bld) [Volume fraction] 41.4 % 34.0-46.4 [facility] Hemoglobin [Mass/volume] in BloodOrdered By: [facility] on 08-08-2022 Hemoglobin (Bld) [Mass/Vol] 13.1 g/dL 11.8-15.4 [facility] Laboratory - Hematology and Cell countsOrdered By: Isidro Lisa on 08-08-2022 Nucleated RBC/100 WBC (Bld) [Ratio] 0.1 % 0-0.5 [facility] Leukocytes [#/volume] in Blo od by Automated countOrdered By: Isidro Lisa on 08-08-2022 WBC (Bld) [#/Vol] 4.6 10*3/uL 4.5-11.0 [facility] [facility] Lymph[facility] Auto (Bld) [#/Vo l]Ordered By: Isidro Lisa on 08-08-2022 Lymphocytes (Bld) [#/Vol] 1.5 10*3/uL 1.00-4.8 [facility] Lymphocytes/100 WBC Auto (Bl d)Ordered By: Isidro Mast on 08-08-2022 Lymphocytes/100 WBC (Bld) 32.3 % . [facility] MCH Auto (RBC) [Entitic mass ]Ordered By: Isidro Mast on 08-08-2022 MCH (RBC) [Entitic mass] 28.1 pg 24.7-34.3 [facility] MCHC Auto (RBC) [Mass/Vol]Or dered By: Isidro Mast on 08-08-2022 MCHC (RBC) [Mass/Vol] 31.6 g/dL 32.0-35.0 [facility] MCV Auto (RBC) [Entitic vol] Ordered By: Isidro Mast on 08-08-2022 MCV (RBC) [Entitic vol] 88.8 fL 80-100 [facility] Monocytes Auto (Bld) [#/Vol] Ordered By: Isidro Mast on 08-08-2022 Monocytes (Bld) [#/Vol] 0.3 10*3/uL 0.0-0.8 [facility] Monocytes/100 WBC Auto (Bld) Ordered By: Isidro Mast on 08-08-2022 Monocytes/100 WBC (Bld) 6.7 % . [facility] Neutrophils Auto (Bld) [#/Vo l]Ordered By: Isidro Mast on 08-08-2022 Neutrophils (Bld) [#/Vol] 2.6 10*3/uL 1.8-7.7 [facility] Neutrophils/100 WBC Auto (Bl d)Ordered By: Isidro Mast on 08-08-2022 Neutrophils/100 WBC (Bld) 55.9 % . [facility] No Panel InformationOrdered By: Isidro Mast on 08-08-2022 Estimated GFR () > 60 mL/Min [facility] Comment on above: GFR estimated refere nce range: According to KDOQI guidelines, <60 ml/min/1.73m2 is sufficient to diagnose a patient with chronic kidney disease. Pharmacy Creatinine Clearance (Chem N/A [facility] Platelet mean volume Auto (B ld) [Entitic vol]Ordered By: Isidro Mast on 08-08-2022 Platelet mean volume (Bld) [Entitic vol] 11.4 fL 6.3-10.7 [facility] Platelets Auto (Bld) [#/Vol] Ordered By: Isidro Mast on 08-08-2022 Platelets (Bld) [#/Vol] 178 10*3/uL 150-450 [facility] Protein [Mass/volume] in Ser um or PlasmaOrdered By: Isidro Mast on 08-08-2022 Protein [Mass/Vol] 5.8 g/dL 6.1-7.9 [facility] RBC Auto (Bld) [#/Vol]Ordere d By: Isidro Mast on 08-08-2022 RBC (Bld) [#/Vol] 4.66 10*6/uL 3.60-5.00 [facility] Serum or plasma alanine georges otransferase measurement without P-5'-P (enzymatic activiOrdered By: Isidro Mast on 08-08-2022 ALT No additional P-5'-P [Catalytic activity/Vol] 16 U/L 10-60 [facility] Serum or plasma albumin/glob ulin mass ratioOrdered By: Isidro Mast on 08-08-2022 Albumin/Globulin [Mass ratio] 1.6 {ratio} [facility] Serum or plasma alkaline sd sphatase measurement (enzymatic activity/volume)Ordered By: Isidro Gonzalez on 08-08-2022 ALP [Catalytic activity/Vol] 52 U/L 32-92 [facility] Serum or plasma anion gap de terminationOrdered By: Isidro Mast on 08-08-2022 Anion gap [Moles/Vol] 16.9 mmol/L 6.0-15.0 [facility] Serum or plasma aspartate am inotransferase measurement (enzymatic activity/volume)Ordered By: Isidro Mast on 08-08-2022 AST [Catalytic activity/Vol] 16 U/L 10-42 [facility] Serum or plasma calcium nu urement (mass/volume)Ordered By: Isidro Gonzalez on 08-08-2022 Calcium [Mass/Vol] 9.7 mg/dL 8.2-10.2 [facility] Serum or plasma chloride rick surement (moles/volume)Ordered By: Isidro Gonzalez on 08-08-2022 Chloride [Moles/Vol] 98 mmol/L 95-114 [facility] Serum or plasma glucose nu urement (mass/volume)Ordered By: Isidro Gonzalez on 08-08-2022 Glucose [Mass/Vol] 90 mg/dL 70-100 [facility] Comment on above: ADA recommended refe rence rangeRandom Glucose Reference Range is dependent on time and content of last meal. Glucose of more than 200 mg/dL in a nonstressed, ambulatory subject supports the diagnosis of Diabetes Mellitus. Serum or plasma high density lipoprotein (HDL) cholesterol measurementOrdered By: Isidro Gonzalez on 08-08-2022 Cholesterol in HDL [Mass/Vol] 48 mg/dL 35-85 [facility] Comment on above: HDL CHOL ATP-III CLA SSIFICATION Cardiovascular RiskHDL > or equal to 60 mg/dL LOWHDL < 40 mg/dL HIGH Serum or plasma potassium me asurement (moles/volume)Ordered By: Isidro Gonzalez on 08-08-2022 Potassium [Moles/Vol] 4.4 mmol/L 3.5-5.1 [facility] Serum or plasma sodium measu rement (moles/volume)Ordered By: Isidro Gonzalez on 08-08-2022 Sodium [Moles/Vol] 140 mmol/L 136-146 [facility] Serum or plasma total biliru bin measurement (mass/volume)Ordered By: Isidro Gonzalez on 08-08-2022 Bilirubin [Mass/Vol] 0.5 mg/dL 0.3-1.2 [facility] Serum or plasma total carbon dioxide measurement (moles/volume)Ordered By: Isidro Gonzalez on 08-08-2022 CO2 [Moles/Vol] 29.5 mmol/L 22.0-30.0 [facility] Serum or plasma total choles terol/high density lipoprotein (HDL) cholesterol mass ratOrdered By: Isidro Gonzalez on 08-08-2022 Cholesterol.total/Chol esterol in HDL [Mass ratio] 4.2 {ratio} <5.0 [facility] Serum or plasma urea nitroge n measurement (mass/volume)Ordered By: Isidro Gonzalez on 08-08-2022 Urea nitrogen [Mass/Vol] 3 mg/dL 9-23 [facility] TSH DL <= 0.005 mIU/L QnOrde red By: Isidrowillow Gonzalez on 08-08-2022 TSH Qn 0.14 m[IU]/L 0.45-5.33 [facility] Thyroxine (T4) free [Mass/vo lume] in Serum or PlasmaOrdered By: [facility] Free T4 [Mass/Vol] 1.13 ng/dL 0.61-1.12 [facility] Triglyceride [Mass/volume] i n Serum or PlasmaOrdered By: [facility] on 08-08-2022 Triglyceride [Mass/Vol] 192 mg/dL 35-149 [facility] Comment on above: TRIG ATP III CLASSIF ICATIONTRIG less than 150 mg/dL NormalTRIG 150-199 mg/dL Borderline highTRIG 200-500 mg/dL High TRIG greater than 500 mg/dL Very highStandard traceable to the Center for Disease Conrtrol and Prevention (CDC) test method. Urine microalbumin measureme nt with detection limit of 20 mg/L or less (mass/volume)[facility]: [facility]22 Albumin DL <= 20 mg/L (U) [Mass/Vol] 0.3 mg/dL 0.0-1.8 [facility] Urine microalbumin/creatinin e mass ratioOrdered By: [facility] on 08-08-2022 Albumin/Creatinine DL <= 20 mg/L (U) [Mass ratio] 7.0 mg/g 0.0-30.0 [facility] Comment on above: 30-300 mg/g indicate s an increased risk for diabetic nephropathy. Greater than 300 mg/g is consistent with clinical nephropathy. (Am. J. Kidney Disease 1995, 25:107) A1C HEMOGLOBINon 07-01-2022 HbA1c (Bld) [Mass fraction] 5.9 % [facility] Other HbA1c (Bld) [Mass fraction]o n 07-01-2022 A1C HEMOGLOBIN [facility] Other Urine culture routineOrdered By: Ernie Oliver on 05-04-2022 Bacteria identified Cx Nom (U) 2 Days [facility] Automated erythrocytes count in urine sediment (number/area)Ordered By: Ernie Oliver on 05-02-2022 RBC Auto (Urine sed) [#/Area] 5-9 [HPF] 0-4 [facility] Automated leukocytes count i n urine sediment (number/area)Ordered By: Ernie Oliver on 05-02-2022 WBC Auto (Urine sed) [#/Area] 5-9 [HPF] 0-4 [facility] Basophils Auto (Bld) [#/Vol] Ordered By: Ernie Oliver on 05-02-2022 Basophils (Bld) [#/Vol] 0.0 10*3/uL 0.0-0.2 [facility] Basophils/100 WBC Auto (Bld) Ordered By: Ernie Oliver on 05-02-2022 Basophils/100 WBC (Bld) 0.8 % . [facility] Bilirubin Test strip Ql (U)O rdered By: Ernie Oliver on 05-02-2022 Bilirubin Ql (U) Negative Negative [facility] Blood hemoglobin measurement (mass/volume)Ordered By: Ernie Oliver on 05-02-2022 Hemoglobin (Bld) [Mass/Vol] 13.1 g/dL 11.8-15.4 [facility] Blood leukocytes automated c ount (number/volume)Ordered By: Ernie Oliver on 05-02-2022 WBC (Bld) [#/Vol] 3.9 10*3/uL 4.5-11.0 [facility] Body fluid albumin measureme nt (mass/volume)Ordered By: Ernie Oliver on 05-02-2022 Albumin (Body fld) [Mass/Vol] 3.7 g/dL 3.2-5.5 [facility] Color Auto (U)Ordered By: Geovany Oliver on 05-02-2022 Color (U) Yellow Yellow [facility] Creatinine and Glomerular fi ltration rate.predicted panel (S/P/Bld)Ordered By: Ernie Oliver on 05-02-2022 Creatinine [Mass/Vol] 0.76 mg/dL 0.44-1.03 [facility] Eosinophils Auto (Bld) [#/Vo l]Ordered By: Ernie Oliver on 05-02-2022 Eosinophils (Bld) [#/Vol] 0.1 10*3/uL 0.0-0.45 [facility] Eosinophils/100 WBC Auto (Bl d)Ordered By: Ernie Oliver on 05-02-2022 Eosinophils/100 WBC (Bld) 2.4 % . [facility] Erythrocyte distribution wid th Auto (RBC) [Ratio]Ordered By: Ernie Oliver on 05-02-2022 Erythrocyte distribution width (RBC) [Ratio] 15.6 % 11.9-15.3 [facility] Estimated glomerular filtrat ion rate (GFR) non- AmericanOrdered By: Ernie Oliver on 05-02-2022 GFR/1.73 sq M.predicted among non-blacks MDRD (S/P/Bld) [Vol rate/Area] > 60 mL/Min [facility] Globulin Calc (S) [Mass/Vol] Ordered By: Ernie Oliver on 05-02-2022 Globulin (S) [Mass/Vol] 2.4 g/dL [facility] Hematocrit Auto (Bld) [Volum e fraction]Ordered By: Ernie Oliver on 05-02-2022 Hematocrit (Bld) [Volume fraction] 40.7 % 34.0-46.4 [facility] Ketones Auto test strip (U) [Mass/Vol]Ordered By: Ernie Oliver on 05-02-2022 Ketones (U) [Mass/Vol] Trace Negative Fi [facility] - Chemistry and C hemistry - challengeOrdered By: Ernie Oliver on 05-02-2022 Lipase [Catalytic activity/Vol] 45.0 U/L 22-51 [facility] Laboratory - Hematology and Cell countsOrdered By: Ernie Oliver on 05-02-2022 Nucleated RBC/100 WBC (Bld) [Ratio] 0.1 % 0-0.5 [facility] - UrinalysisOrder ed By: Ernie Oliver on 05-02-2022 Hyaline casts LM Ql (Urine sed) 0-8 [LPF] 0-8 [facility] Lymphocytes Auto (Bld) [#/Vo l]Ordered By: Ernie Oliver on 05-02-2022 Lymphocytes (Bld) [#/Vol] 0.6 10*3/uL 1.00-4.8 [facility] Lymphocytes/100 WBC Auto (Bl d)Ordered By: Ernie Oliver on 05-02-2022 Lymphocytes/100 WBC (Bld) 15.4 % . [facility] MCH Auto (RBC) [Entitic mass ]Ordered By: Ernie Oliver on 05-02-2022 MCH (RBC) [Entitic mass] 28.0 pg 24.7-34.3 [facility] MCHC Auto (RBC) [Mass/Vol]Or dered By: Ernie Oliver on 05-02-2022 MCHC (RBC) [Mass/Vol] 32.2 g/dL 32.0-35.0 [facility] MCV Auto (RBC) [Entitic vol] Ordered By: Ernie Oliver on 05-02-2022 MCV (RBC) [Entitic vol] 87.1 fL 80-100 [facility] Monocytes Auto (Bld) [#/Vol] Ordered By: Ernie Oliver on 05-02-2022 Monocytes (Bld) [#/Vol] 0.7 10*3/uL 0.0-0.8 [facility] Monocytes/100 WBC Auto (Bld) Ordered By: Ernie Oliver on 05-02-2022 Monocytes/100 WBC (Bld) 17.7 % . [facility] Neutrophils Auto (Bld) [#/Vo l]Ordered By: Ernie Oliver on 05-02-2022 Neutrophils (Bld) [#/Vol] 2.5 10*3/uL 1.8-7.7 [facility] Neutrophils/100 WBC Auto (Bl d)Ordered By: Ernie Oliver on 05-02-2022 Neutrophils/100 WBC (Bld) 63.7 % . [facility] Nitrite Test strip Ql (U)Ord ered By: Ernie Oliver on 05-02-2022 Nitrite Ql (U) Negative Negative [facility] No Panel InformationOrdered By: Ernie Oliver on 05-02-2022 Estimated GFR () > 60 mL/Min [facility] Comment on above: GFR estimated refere nce range: According to KDOQI guidelines, <60 ml/min/1.73m2 is sufficient to diagnose a patient with chronic kidney disease. Pharmacy Creatinine Clearance (Chem 93.71 [facility] Platelet mean volume Auto (B ld) [Entitic vol]Ordered By: Ernie Oliver on 05-02-2022 Platelet mean volume (Bld) [Entitic vol] 9.6 fL 6.3-10.7 [facility] Platelets Auto (Bld) [#/Vol] Ordered By: Ernie Oliver on 05-02-2022 Platelets (Bld) [#/Vol] 132 10*3/uL 150-450 [facility] Protein Auto test strip (U) [Mass/Vol]Ordered By: Ernie Oliver on 05-02-2022 Protein (U) [Mass/Vol] Negative Negative Fi [facility] Protein [Mass/volume] in Ser um or PlasmaOrdered By: Ernie Oliver on 05-02-2022 Protein [Mass/Vol] 6.1 g/dL 6.1-7.9 [facility] RBC Auto (Bld) [#/Vol]Ordere d By: Ernie Oliver on 05-02-2022 RBC (Bld) [#/Vol] 4.68 10*6/uL 3.60-5.00 [facility] Serum or plasma alanine georges otransferase measurement without P-5'-P (enzymatic activiOrdered By: Ernie Oliver on 05-02-2022 ALT No additional P-5'-P [Catalytic activity/Vol] 34 U/L 10-60 [facility] Serum or plasma albumin/glob ulin mass ratioOrdered By: Ernie Oliver on 05-02-2022 Albumin/Globulin [Mass ratio] 1.5 {ratio} [facility] Serum or plasma alkaline sd sphatase measurement (enzymatic activity/volume)Ordered By: Ernie Oliver on 05-02-2022 ALP [Catalytic activity/Vol] 55 U/L 32-92 [facility] Serum or plasma aspartate am inotransferase measurement (enzymatic activity/volume)Ordered By: Ernie Oliver on 05-02-2022 AST [Catalytic activity/Vol] 40 U/L 10-42 [facility] Serum or plasma calcium nu urement (mass/volume)Ordered By: Ernie Oliver on 05-02-2022 Calcium [Mass/Vol] 9.4 mg/dL 8.2-10.2 [facility] Serum or plasma chloride rick surement (moles/volume)Ordered By: Ernie Oliver on 05-02-2022 Chloride [Moles/Vol] 95 mmol/L 95-114 [facility] Serum or plasma glucose nu urement (mass/volume)Ordered By: Ernie Oliver on 05-02-2022 Glucose [Mass/Vol] 112 mg/dL 70-100 [facility] Comment on above: ADA recommended refe rence range Random Glucose Reference Range is dependent on time and content of last meal. Glucose of more than 200 mg/dL in a nonstressed, ambulatory subject supports the diagnosis of Diabetes Mellitus. Serum or plasma potassium me asurement (moles/volume)Ordered By: Ernie Oliver on 05-02-2022 Potassium [Moles/Vol] 4.2 mmol/L 3.5-5.1 [facility] Serum or plasma sodium measu rement (moles/volume)Ordered By: Ernie Oliver on 05-02-2022 Sodium [Moles/Vol] 137 mmol/L 136-146 [facility] Serum or plasma total biliru bin measurement (mass/volume)Ordered By: Ernie Oliver on 05-02-2022 Bilirubin [Mass/Vol] 0.3 mg/dL 0.3-1.2 [facility] Serum or plasma total carbon dioxide measurement (moles/volume)Ordered By: Ernie Oliver on 05-02-2022 CO2 [Moles/Vol] 26.6 mmol/L 22.0-30.0 [facility] Serum or plasma urea nitroge n measurement (mass/volume)Ordered By: Ernie Oliver on 05-02-2022 Urea nitrogen [Mass/Vol] 9 mg/dL 9-23 [facility] Specific gravity Auto test s trip (U) [Rel density]Ordered By: Ernie Oliver on 05-02-2022 Specific gravity (U) [Rel density] 1.022 1.001-1.03 0 [facility] Squamous epithelial cells de tection in urine sediment by light microscopyOrdered By: Ernie Oliver on 05-02-2022 Epithelial cells.squamous LM Ql (Urine sed) 3-4 [HPF] 0-2 [facility] Urine bacteria detection by automated methodOrdered By: Ernie Oliver on 05-02-2022 Bacteria Auto Ql (U) None seen None Seen [facility] Urine clarity by refractomet ry automatedOrdered By: Ernie Oliver on 05-02-2022 Clarity Refractometry automated (U) Turbid Clear [facility] Urine glucose measurement by automated test strip (mass/volume)Ordered By: Ernie Oliver on 05-02-2022 Glucose Auto test strip (U) [Mass/Vol] Normal mg/dL Normal [facility] Urine hemoglobin detection b y automated test stripOrdered By: Ernie Oliver on 05-02-2022 Hemoglobin Auto test strip Ql (U) Negative Negative [facility] Urine leukocyte esterase det ection by automated test stripOrdered By: Ernie Oliver on 05-02-2022 Leukocyte esterase Auto test strip Ql (U) 1+ Negative [facility] Urobilinogen Auto test strip (U) [Mass/Vol]Ordered By: Ernie Oliver on 05-02-2022 Urobilinogen (U) [Mass/Vol] Normal mg/dL Normal [facility] pH Auto test strip (U)Ordere d By: Ernie Olivre on 05-02-2022 pH (U) 7.5 [pH] 5.0-9.0 [facility] A1C HEMOGLOBINon 02-25-2022 HbA1c (Bld) [Mass fraction] 6.1 % [facility] Other HbA1c (Bld) [Mass fraction]o n 02-25-2022 A1C HEMOGLOBIN [facility] Other A1C HEMOGLOBINon 10-29-2021 HbA1c (Bld) [Mass fraction] 5.9 % [facility] Other HbA1c (Bld) [Mass fraction]o n 10-29-2021 A1C HEMOGLOBIN [facility] Other A1C HEMOGLOBINon 07-02-2021 HbA1c (Bld) [Mass fraction] 5.7 % [facility] Other HbA1c (Bld) [Mass fraction]o n 07-02-2021 A1C HEMOGLOBIN [facility] Other Vital Signs Date Time Vital Sign Value Performing Clinician Facility 11-09-2024 10:26-0500 Body height 162.56 cm Isidro Mast DO Work Phone: [facility] 11-09-2024 10:26-0500 Body mass index (BMI) [Ratio] 40.4 kg/m2 Isidro Mast DO Work Phone: [facility] 11-09-2024 10:26-0500 Body temperature 97.3 [degF] Isidro Mast DO Work Phone: [facility] 11-09-2024 10:26-0500 Body weight 106.82 kg Isidro Mast DO Work Phone: [facility] 11-09-2024 10:26-0500 Diastolic blood pressure 82 mm[Hg] Isidro Mast DO Work Phone: [facility] 11-09-2024 10:26-0500 Heart rate 89 /min Isidro Mast DO Work Phone: [facility] 11-09-2024 10:26-0500 SaO2% (BldA) [Mass fraction] 97 % Isidro Mast DO Work Phone: [facility] 11-09-2024 10:26-0500 Systolic blood pressure 112 mm[Hg] Isidro Mast DO Work Phone: [facility] 2024 09:47-0500 Diastolic blood pressure 86 mm[Hg] Steven Carolina DO Work Phone: [facility] 2024 09:47-0500 Heart rate 82 /min Steven Carolina DO Work Phone: [facility] 2024 09:47-0500 SaO2% (BldA) [Mass fraction] 95 % Steven Carolina DO Work Phone: [facility] 2024 09:47-0500 Systolic blood pressure 122 mm[Hg] Steven Carolina DO Work Phone: [facility] 10-27-2024 09:42-0500 Body height 162.56 cm Isidro Mast DO Work Phone: [facility] 10-27-2024 09:42-0500 Body mass index (BMI) [Ratio] 40.3 kg/m2 Isidro Mast DO Work Phone: [facility] 10-27-2024 09:42-0500 Body weight 106.59 kg Isidro Mast DO Work Phone: [facility] 10-27-2024 09:42-0500 Diastolic blood pressure 72 mm[Hg] Isidro Mast DO Work Phone: [facility] 10-27-2024 09:42-0500 Heart rate 63 /min Isidro Mast DO Work Phone: [facility] 10-27-2024 09:42-0500 SaO2% (BldA) [Mass fraction] 97 % Isidro Mast DO Work Phone: [facility] 10-27-2024 09:42-0500 Systolic blood pressure 128 mm[Hg] Isidro Mast DO Work Phone: [facility] 10-18-2024 10:08-0500 Body height 162.56 cm Isidro Mast DO Work Phone: [facility] 10-18-2024 10:08-0500 Body temperature 97.9 [degF] Isidro Mast DO Work Phone: [facility] 10-18-2024 10:08-0500 Body weight 107.75 kg Isidro Mast DO Work Phone: [facility] 10-18-2024 10:08-0500 Diastolic blood pressure 88 mm[Hg] Isidro Mast DO Work Phone: [facility] 10-18-2024 10:08-0500 Heart rate 104 /min Isidro Mast DO Work Phone: [facility] 10-18-2024 10:08-0500 Respiratory rate 16 /min Isidro Mast DO Work Phone: [phone] [place] [address] 10-18-2024 10:08-0500 SaO2% (BldA) [Mass fraction] 96 % Isidro Mast DO Work Phone: [facility] 10-18-2024 10:08-0500 Systolic blood pressure 157 mm[Hg] Isidro Mast DO Work Phone: [facility] 10-13-2024 12:00-0500 Diastolic blood pressure 84 mm[Hg] Isidro Mast DO Work Phone: [facility] 10-13-2024 12:00-0500 Heart rate 58 /min Isidro Mast DO Work Phone: [facility] 10-13-2024 12:00-0500 Respiratory rate 16 /min Isidro Mast DO Work Phone: [facility] 10-13-2024 12:00-0500 SaO2% (BldA) [Mass fraction] 96 % Isidro Mast DO Work Phone: [facility] 10-13-2024 12:00-0500 Systolic blood pressure 139 mm[Hg] Isidro Mast DO Work Phone: [facility] 10-13-2024 11:20-0500 Inhaled oxygen flow rate 3 L/min Isidro Mast DO Work Phone: [facility] 10-13-2024 10:07-0500 Body height 162.56 cm Isidro Mast DO Work Phone: [facility] 10-13-2024 10:07-0500 Body weight 106.59 kg Isidro Mast DO Work Phone: [facility] 10-06-2024 14:31-0500 Diastolic blood pressure 70 mm[Hg] Isidro Mast DO Work Phone: [facility] 10-06-2024 14:31-0500 Heart rate 87 /min Isidro Mast DO Work Phone: [facility] 10-06-2024 14:31-0500 SaO2% (BldA) [Mass fraction] 98 % Isidro Mast DO Work Phone: [facility] 10-06-2024 14:31-0500 Systolic blood pressure 112 mm[Hg] Isidro Mast DO Work Phone: [facility] 09-29-2024 11:30-0500 Diastolic blood pressure 73 mm[Hg] Isidro Mast DO Work Phone: [facility] 09-29-2024 11:30-0500 Heart rate 68 /min Isidro Mast DO Work Phone: [facility] 09-29-2024 11:30-0500 Respiratory rate 16 /min Isidro Mast DO Work Phone: [facility] 09-29-2024 11:30-0500 SaO2% (BldA) [Mass fraction] 96 % Isidro Mast DO Work Phone: [facility] 09-29-2024 11:30-0500 Systolic blood pressure 105 mm[Hg] Isidro Mast DO Work Phone: [facility] 09-29-2024 10:49-0500 Inhaled oxygen flow rate 2 L/min Isidro Mast DO Work Phone: [facility] 09-29-2024 09:37-0500 Body height 162.56 cm Isidro Mast DO Work Phone: [facility] 09-29-2024 09:37-0500 Body weight 106.59 kg Isidro Mast DO Work Phone: [facility] 09-27-2024 09:25-0500 Body height 162.56 cm Isidro Mast DO Work Phone: [facility] 09-27-2024 09:25-0500 Body mass index (BMI) [Ratio] 40.4 kg/m2 Isidro Mast DO Work Phone: [facility] 09-27-2024 09:25-0500 Body temperature 96.5 [degF] Isidro Mast DO Work Phone: [facility] 09-27-2024 09:25-0500 Body weight 106.79 kg Isidro Mast DO Work Phone: [facility] 09-27-2024 09:25-0500 Diastolic blood pressure 80 mm[Hg] Isidro Mast DO Work Phone: [facility] 09-27-2024 09:25-0500 Heart rate 87 /min Isidro Mast DO Work Phone: [facility] 09-27-2024 09:25-0500 SaO2% (BldA) [Mass fraction] 99 % Isidro Mast DO Work Phone: [facility] 09-27-2024 09:25-0500 Systolic blood pressure 114 mm[Hg] Isidro Mast DO Work Phone: [facility] 09-13-2024 15:19-0500 Body height 162.56 cm Isidro Mast DO Work Phone: [facility] 09-13-2024 15:19-0500 Body mass index (BMI) [Ratio] 40.8 kg/m2 Isidro Mast DO Work Phone: [facility] 09-13-2024 15:19-0500 Body temperature 97.8 [degF] Isidro Mast DO Work Phone: [facility] 09-13-2024 15:19-0500 Body weight 107.95 kg Isidro Mast DO Work Phone: [facility] 09-13-2024 15:19-0500 Diastolic blood pressure 62 mm[Hg] Isidro Mast DO Work Phone: [facility] 09-13-2024 15:19-0500 Heart rate 72 /min Isidro Mast DO Work Phone: [facility] 09-13-2024 15:19-0500 SaO2% (BldA) [Mass fraction] 99 % Isidro Mast DO Work Phone: [facility] 09-13-2024 15:19-0500 Systolic blood pressure 118 mm[Hg] Isidro Mast DO Work Phone: [facility] 09-09-2024 09:33-0500 Body height 162.6 cm Conchis Meghamor FIN[employer] VICE PRESIDENT Work Phone: [facility] 09-09-2024 09:33-0500 Body mass index (BMI) [Ratio] 41.2 kg/m2 Conchis Meghamor [employer] VICE PRESIDENT Work Phone: [facility] 09-09-2024 09:33-0500 Body weight 108.86 kg Conchis Meghamor FINANCE VICE PRESIDENT Work Phone: [facility] 09-09-2024 09:33-0500 Diastolic blood pressure 84 mm[Hg] Conchis Meghamor FINANCE VICE PRESIDENT Work Phone: [facility] 09-09-2024 09:33-0500 Heart rate 69 /min Conchis Meghamor FINANCE VICE PRESIDENT Work Phone: [facility] 09-09-2024 09:33-0500 Systolic blood pressure 152 mm[Hg] Conchis Gillmor FINANCE VICE PRESIDENT Work Phone: [facility] 09-07-2024 09:48-0500 Body weight 108.52 kg Isidro Mast DO Work Phone: [facility] 09-07-2024 09:48-0500 Diastolic blood pressure 82 mm[Hg] Isidro Mast DO Work Phone: [facility] 09-07-2024 09:48-0500 Heart rate 70 /min Isidro Mast DO Work Phone: [facility] 09-07-2024 09:48-0500 SaO2% (BldA) [Mass fraction] 99 % Isidro Mast DO Work Phone: [facility] 09-07-2024 09:48-0500 Systolic blood pressure 130 mm[Hg] Isidro Mast DO Work Phone: [facility] 08-09-2024 08:35-0500 Body height 162.56 cm Isidro Mast DO Work Phone: [facility] 08-09-2024 08:35-0500 Body mass index (BMI) [Ratio] 39.9 kg/m2 Isidro Mast DO Work Phone: [facility] 08-09-2024 08:35-0500 Body temperature 97.7 [degF] Isidro Mast DO Work Phone: [facility] 08-09-2024 08:35-0500 Body weight 105.48 kg Isidro Mast DO Work Phone: [facility] 08-09-2024 08:35-0500 Diastolic blood pressure 68 mm[Hg] Isidro Mast DO Work Phone: [facility] 08-09-2024 08:35-0500 Heart rate 67 /min Isidro Mast DO Work Phone: [facility] 08-09-2024 08:35-0500 SaO2% (BldA) [Mass fraction] 96 % Isidro Mast DO Work Phone: [facility] 08-09-2024 08:35-0500 Systolic blood pressure 112 mm[Hg] Isidro Mast DO Work Phone: [facility] 07-22-2024 09:04-0400 Diastolic blood pressure 88 mm[Hg] Steven Carolina DO Work Phone: [facility] 07-22-2024 09:04-0400 Heart rate 95 /min Steven Carolina DO Work Phone: [facility] 07-22-2024 09:04-0400 SaO2% (BldA) [Mass fraction] 97 % Steven Carolina DO Work Phone: [facility] 07-22-2024 09:04-0400 Systolic blood pressure 132 mm[Hg] Steven Figueroa DO Work Phone: [facility] 07-06-2024 14:46-0400 Body mass index (BMI) [Ratio] 41.54 kg/m2 Capri Srivastava FINANCE VICE PRESIDENT Work Phone: [facility] 07-06-2024 14:46-0400 Body temperature 97.81 [degF] Capri Srivastava FINANCE VICE PRESIDENT Work Phone: [facility] 07-06-2024 14:46-0400 Body weight 109.77 kg Capri Srivastava FINANCE VICE PRESIDENT Work Phone: [facility] 07-06-2024 14:46-0400 Diastolic blood pressure 90 mm[Hg] Capri Daileyok FINANCE VICE PRESIDENT Work Phone: [facility] 07-06-2024 14:46-0400 Heart rate 106 /min Capri Srivastava FINANCE VICE PRESIDENT Work Phone: [facility] 07-06-2024 14:46-0400 SaO2% (BldA) [Mass fraction] 97 % Capri Srivastava FINANCE VICE PRESIDENT Work Phone: [facility] 07-06-2024 14:46-0400 Systolic blood pressure 162 mm[Hg] Capri Srivastava FINANCE VICE PRESIDENT Work Phone: [facility] 06-17-2024 09:40-0400 Body height 162.6 cm Conchis Pottsr FINANCE VICE PRESIDENT Work Phone: [facility] 06-17-2024 09:40-0400 Body mass index (BMI) [Ratio] 41.54 kg/m2 Conchis Meghamor FINANCE VICE PRESIDENT Work Phone: [facility] 06-17-2024 09:40-0400 Body weight 109.77 kg Conchis Meghamor FINANCE VICE PRESIDENT Work Phone: [facility] 06-17-2024 09:40-0400 Diastolic blood pressure 78 mm[Hg] Conchis Clevelandmor FINANCE VICE PRESIDENT Work Phone: [facility] 06-17-2024 09:40-0400 Heart rate 67 /min Conchis Clevelandmor FINANCE VICE PRESIDENT Work Phone: [facility] 06-17-2024 09:40-0400 Systolic blood pressure 130 mm[Hg] Conchis Clevelandmor FINANCE VICE PRESIDENT Work Phone: [facility] 06-14-2024 16:19-0400 Body temperature 97.9 [degF] DO Isidro Mast Work Phone: [facility] 06-14-2024 16:19-0400 Body weight 109 kg DO Isidro Mast Work Phone: [facility] 06-14-2024 16:19-0400 Diastolic blood pressure 90 mm[Hg] DO Isidro Mast Work Phone: [facility] 06-14-2024 16:19-0400 Heart rate 74 /min DO Isidro Mast Work Phone: [facility] 06-14-2024 16:19-0400 SaO2% (BldA) [Mass fraction] 99 % DO Isidro Mast Work Phone: [facility] 06-14-2024 16:19-0400 Systolic blood pressure 122 mm[Hg] DO Isidro Mast Work Phone: [facility] 06-08-2024 11:18-0400 Body temperature 97.6 [degF] DO Isidro Mast Work Phone: [facility] 06-08-2024 11:18-0400 Diastolic blood pressure 78 mm[Hg] DO Isidro Mast Work Phone: [facility] 06-08-2024 11:18-0400 Heart rate 71 /min DO Isidro Mast Work Phone: [facility] 06-08-2024 11:18-0400 Respiratory rate 18 /min DO Isidro Mast Work Phone: [facility] 06-08-2024 11:18-0400 SaO2% (BldA) [Mass fraction] 94 % DO Isidro Mast Work Phone: [facility] 06-08-2024 11:18-0400 Systolic blood pressure 151 mm[Hg] DO Isidro Mast Work Phone: [facility] 06-08-2024 05:39-0400 Body weight 114.1 kg DO Isidro Mast Work Phone: [facility] 06-06-2024 22:06-0400 Body height 162.56 cm DO Isidro Mast Work Phone: [facility] 06-06-2024 22:06-0400 Body temperature 97.8 [degF] DO Isidro Mast Work Phone: [facility] 06-06-2024 22:06-0400 Body weight 108.86 kg DO Isidro Mast Work Phone: [facility] 06-06-2024 22:06-0400 Diastolic blood pressure 98 mm[Hg] DO Isidro Mast Work Phone: [facility] 06-06-2024 22:06-0400 Heart rate 54 /min DO Isidro Mast Work Phone: [facility] 06-06-2024 22:06-0400 Respiratory rate 16 /min DO Isidro Mast Work Phone: [facility] 06-06-2024 22:06-0400 SaO2% (BldA) [Mass fraction] 98 % DO Isidro Mast Work Phone: [facility] 06-06-2024 22:06-0400 Systolic blood pressure 186 mm[Hg] DO Isidro Mast Work Phone: [facility] 06-02-2024 13:38-0400 Diastolic blood pressure 73 mm[Hg] DO Isidro Mast Work Phone: [phone] [place] [address] 06-02-2024 13:38-0400 Heart rate 60 /min DO Isidro Mast Work Phone: [facility] 06-02-2024 13:38-0400 Respiratory rate 18 /min DO Isidro Mast Work Phone: [facility] 06-02-2024 13:38-0400 SaO2% (BldA) [Mass fraction] 98 % DO Isidro Mast Work Phone: [facility] 06-02-2024 13:38-0400 Systolic blood pressure 138 mm[Hg] DO Isidro Mast Work Phone: [facility] 06-02-2024 11:01-0400 Body height 162.56 cm DO Isidro Mast Work Phone: [facility] 06-02-2024 11:01-0400 Body temperature 97.6 [degF] DO Isidro Mast Work Phone: [facility] 06-02-2024 11:01-0400 Body weight 113.6 kg DO Isidro Mast Work Phone: [facility] 05-20-2024 11:58-0400 Body height 162.56 cm DO Isidro Mast Work Phone: [facility] 05-20-2024 11:58-0400 Body temperature 97.5 [degF] DO Isidro Mast Work Phone: [facility] 05-20-2024 11:58-0400 Body weight 111.13 kg DO Isidro Mast Work Phone: [facility] 05-20-2024 11:58-0400 Diastolic blood pressure 78 mm[Hg] DO Isidro Mast Work Phone: [facility] 05-20-2024 11:58-0400 Heart rate 88 /min DO Isidro Mast Work Phone: [facility] 05-20-2024 11:58-0400 Respiratory rate 16 /min DO Isidro Mast Work Phone: [facility] 05-20-2024 11:58-0400 SaO2% (BldA) [Mass fraction] 98 % DO Isidro Mast Work Phone: [facility] 05-20-2024 11:58-0400 Systolic blood pressure 133 mm[Hg] DO Isidro Mast Work Phone: [facility] 04-05-2024 09:14-0400 Body height 162.56 cm DO Isidro Mast Work Phone: [facility] 04-05-2024 09:14-0400 Body mass index (BMI) [Ratio] 42 kg/m2 DO Isidro Mast Work Phone: [facility] 04-05-2024 09:14-0400 Body temperature 97.6 [degF] DO Isidro Mast Work Phone: [facility] 04-05-2024 09:14-0400 Body weight 111.27 kg DO Isidro Mast Work Phone: [facility] 04-05-2024 09:14-0400 Diastolic blood pressure 78 mm[Hg] DO Isidro Mast Work Phone: [facility] 04-05-2024 09:14-0400 Heart rate 107 /min DO Isidro Mast Work Phone: [facility] 04-05-2024 09:14-0400 SaO2% (BldA) [Mass fraction] 96 % DO Isidro Mast Work Phone: [facility] 04-05-2024 09:14-0400 Systolic blood pressure 132 mm[Hg] DO Isidro Mast Work Phone: [facility] 03-05-2024 11:20-0400 Body height 162.56 cm DO Isidro Mast Work Phone: [facility] 03-05-2024 11:20-0400 Body mass index (BMI) [Ratio] 41.1 kg/m2 DO Isidro Mast Work Phone: [facility] 03-05-2024 11:20-0400 Body temperature 96.5 [degF] DO Isidro Mast Work Phone: [facility] 03-05-2024 11:20-0400 Body weight 108.55 kg DO Isidro Mast Work Phone: [facility] 03-05-2024 11:20-0400 Diastolic blood pressure 90 mm[Hg] DO Isidro Mast Work Phone: [facility] 03-05-2024 11:20-0400 Heart rate 101 /min DO Isidro Mast Work Phone: [facility] 03-05-2024 11:20-0400 SaO2% (BldA) [Mass fraction] 98 % DO Isidro Mast Work Phone: [facility] 03-05-2024 11:20-0400 Systolic blood pressure 132 mm[Hg] DO Isdiro Mast Work Phone: [facility] 02-29-2024 19:05-0400 Diastolic blood pressure 88 mm[Hg] DO Isidro Mast Work Phone: [facility] 02-29-2024 19:05-0400 Heart rate 73 /min DO Isidro Mast Work Phone: [facility] 02-29-2024 19:05-0400 Respiratory rate 18 /min DO Isidro Mast Work Phone: [facility] 02-29-2024 19:05-0400 SaO2% (BldA) [Mass fraction] 98 % DO Isidro Mast Work Phone: [facility] 02-29-2024 19:05-0400 Systolic blood pressure 166 mm[Hg] DO Isidro Mast Work Phone: [facility] 02-29-2024 18:07-0400 Body height 162.56 cm DO Isidro Mast Work Phone: [facility] 02-29-2024 18:07-0400 Body temperature 97.6 [degF] DO Isidro Mast Work Phone: [facility] 02-29-2024 18:07-0400 Body weight 108.86 kg DO Isidro Mast Work Phone: [facility] 02-04-2024 12:30-0400 Diastolic blood pressure 86 mm[Hg] DO Isidro Mast Work Phone: [facility] 02-04-2024 12:30-0400 Heart rate 91 /min DO Isidro Mast Work Phone: [facility] 02-04-2024 12:30-0400 Respiratory rate 16 /min DO Isidro Mast Work Phone: [facility] 02-04-2024 12:30-0400 SaO2% (BldA) [Mass fraction] 98 % DO Isidro Mast Work Phone: [facility] 02-04-2024 12:30-0400 Systolic blood pressure 134 mm[Hg] DO Isidro Mast Work Phone: [facility] 02-04-2024 11:56-0400 Inhaled oxygen flow rate 3 L/min DO Isidro Mast Work Phone: [facility] 02-04-2024 10:54-0400 Body height 162.56 cm DO Isidro Mast Work Phone: [facility] 02-04-2024 10:54-0400 Body weight 106.59 kg DO Isidro Mast Work Phone: [facility] 01-26-2024 14:54-0400 Diastolic blood pressure 84 mm[Hg] DO Isidro Mast Work Phone: [facility] 01-26-2024 14:54-0400 Heart rate 88 /min DO Isidro Mast Work Phone: [facility] 01-26-2024 14:54-0400 SaO2% (BldA) [Mass fraction] 97 % DO Isidro Mast Work Phone: [facility] 01-26-2024 14:54-0400 Systolic blood pressure 140 mm[Hg] DO Isidro Mast Work Phone: [facility] 01-06-2024 09:06-0400 Body height 162.56 cm DO Isidro Mast Work Phone: [facility] 01-06-2024 09:06-0400 Body mass index (BMI) [Ratio] 42.4 kg/m2 DO Isidro Mast Work Phone: [facility] 01-06-2024 09:06-0400 Body weight 112.03 kg DO Isidro Mast Work Phone: [facility] 12-25-2023 01:00-0400 Diastolic blood pressure 69 mm[Hg] DO Isidro Mast Work Phone: [facility] 12-25-2023 01:00-0400 Heart rate 77 /min DO Isidro Mast Work Phone: [facility] 12-25-2023 01:00-0400 SaO2% (BldA) [Mass fraction] 97 % DO Isidro Mast Work Phone: [facility] 12-25-2023 01:00-0400 Systolic blood pressure 136 mm[Hg] DO Isidro Mast Work Phone: [facility] 12-24-2023 22:21-0400 Respiratory rate 18 /min DO Isidro Mast Work Phone: [facility] 12-24-2023 20:04-0400 Body height 162.56 cm DO Isidro Mast Work Phone: [facility] 12-24-2023 20:04-0400 Body temperature 97.7 [degF] DO Isidro Mast Work Phone: [facility] 12-24-2023 20:04-0400 Body weight 107.5 kg DO Isidro Mast Work Phone: [facility] 12-10-2023 11:16-0400 Body height 162.56 cm DO Isidro Mast Work Phone: [facility] 12-10-2023 11:16-0400 Diastolic blood pressure 84 mm[Hg] DO Isidro Mast Work Phone: [facility] 12-10-2023 11:16-0400 Heart rate 96 /min DO Isidro Mast Work Phone: [facility] 12-10-2023 11:16-0400 SaO2% (BldA) [Mass fraction] 98 % DO Isidro Mast Work Phone: [facility] 12-10-2023 11:16-0400 Systolic blood pressure 156 mm[Hg] DO Isidro Mast Work Phone: [facility] 11-27-2023 13:06-0500 Body height 162.56 cm DO Isidro Mast Work Phone: [facility] 11-27-2023 13:06-0500 Body mass index (BMI) [Ratio] 40.1 kg/m2 DO Isidro Mast Work Phone: [facility] 11-27-2023 13:06-0500 Body temperature 96.2 [degF] DO Isidro Mast Work Phone: [facility] 11-27-2023 13:06-0500 Body weight 106.22 kg DO Isidro Mast Work Phone: [facility] 11-27-2023 13:06-0500 Diastolic blood pressure 64 mm[Hg] DO Isidro Mast Work Phone: [facility] 11-27-2023 13:06-0500 SaO2% (BldA) [Mass fraction] 96 % DO Isidro Mast Work Phone: [facility] 11-27-2023 13:06-0500 Systolic blood pressure 110 mm[Hg] DO Isidro Mast Work Phone: [facility] 11-26-2023 10:45-0500 Diastolic blood pressure 88 mm[Hg] DO Isidro Mast Work Phone: [facility] 11-26-2023 10:45-0500 Heart rate 87 /min DO Isidro Mast Work Phone: [facility] 11-26-2023 10:45-0500 Respiratory rate 18 /min DO Isidro Mast Work Phone: [facility] 11-26-2023 10:45-0500 SaO2% (BldA) [Mass fraction] 98 % DO Isidro Mast Work Phone: [facility] 11-26-2023 10:45-0500 Systolic blood pressure 141 mm[Hg] DO Isidro Mast Work Phone: [facility] 11-26-2023 09:56-0500 Inhaled oxygen flow rate 3 L/min DO Isidro Mast Work Phone: [facility] 11-26-2023 08:51-0500 Body height 162.56 cm DO Isidro Mast Work Phone: [facility] 11-26-2023 08:51-0500 Body weight 104.32 kg DO Isidro Mast Work Phone: [facility] 11-13-2023 15:22-0500 Diastolic blood pressure 80 mm[Hg] DO Isidro Mast Work Phone: [facility] 11-13-2023 15:22-0500 Heart rate 103 /min DO Isidro Mast Work Phone: [facility] 11-13-2023 15:22-0500 SaO2% (BldA) [Mass fraction] 98 % DO Isidro Mast Work Phone: [facility] 11-13-2023 15:22-0500 Systolic blood pressure 140 mm[Hg] DO Isidro Mast Work Phone: [facility] 11-10-2023 09:41-0500 Body height 162.56 cm DO Isidro Mast Work Phone: [facility] 11-10-2023 09:41-0500 Body mass index (BMI) [Ratio] 40.8 kg/m2 DO Isidro Mast Work Phone: [facility] 11-10-2023 09:41-0500 Body weight 107.95 kg DO Isidro Mast Work Phone: [facility] 11-05-2023 11:35-0500 Diastolic blood pressure 94 mm[Hg] DO Isidro Mast Work Phone: [facility] 11-05-2023 11:35-0500 Heart rate 96 /min DO Isidro Mast Work Phone: [facility] 11-05-2023 11:35-0500 Respiratory rate 16 /min DO Isidro Mast Work Phone: [facility] 11-05-2023 11:35-0500 SaO2% (BldA) [Mass fraction] 96 % DO Isidro Mast Work Phone: [facility] 11-05-2023 11:35-0500 Systolic blood pressure 150 mm[Hg] DO Isidro Mast Work Phone: [facility] 11-05-2023 10:55-0500 Inhaled oxygen flow rate 3 L/min DO Isidro Mast Work Phone: [facility] 11-05-2023 09:54-0500 Body height 162.56 cm DO Isidro Mast Work Phone: [facility] 11-05-2023 09:54-0500 Body weight 104.32 kg DO Isidro Mast Work Phone: [facility] 10-15-2023 13:30-0500 Body height 162.56 cm Pravin Beebe Other [facility] 10-15-2023 13:30-0500 Diastolic blood pressure 82 mm[Hg] Pravin Beebe Other [facility] 10-15-2023 13:30-0500 SaO2% (BldA) [Mass fraction] 99 % Pravin Beebe Other [facility] Other 10-15-2023 13:30-0500 Systolic blood pressure 124 mm[Hg] Pravin Beebe Other [facility] 10-08-2023 12:14-0500 Diastolic blood pressure 81 mm[Hg] DO Isidro Mast Work Phone: [facility] 10-08-2023 12:14-0500 Heart rate 95 /min DO Isidro Mast Work Phone: [facility] 10-08-2023 12:14-0500 Respiratory rate 16 /min DO Isidro Mast Work Phone: [facility] 10-08-2023 12:14-0500 SaO2% (BldA) [Mass fraction] 98 % DO Isidro Mast Work Phone: [facility] 10-08-2023 12:14-0500 Systolic blood pressure 140 mm[Hg] DO Isidro Mast Work Phone: [facility] 10-08-2023 11:32-0500 Inhaled oxygen flow rate 3 L/min DO Isidro Mast Work Phone: [facility] 09-12-2023 09:15-0500 Body height 162.56 cm Pravin Beebe Other [facility] 09-12-2023 09:15-0500 Body mass index (BMI) [Ratio] 38.96 kg/m2 Pravin Lyonky Other [facility] Other 09-12-2023 09:15-0500 Body weight 102.97 kg Pravin Lyonky Other [facility] Other 09-12-2023 09:15-0500 Body weight 102.96 kg DO Isidro Mast Work Phone: [facility] 09-12-2023 09:15-0500 Diastolic blood pressure 80 mm[Hg] Pravin Lyonky Other [facility] 09-12-2023 09:15-0500 Systolic blood pressure 124 mm[Hg] Pravin Lyonky Other [facility] 09-03-2023 11:08-0500 Diastolic blood pressure 86 mm[Hg] DO Isidro Mast Work Phone: [facility] 09-03-2023 11:08-0500 Heart rate 71 /min DO Isidro Mast Work Phone: [facility] 09-03-2023 11:08-0500 Respiratory rate 16 /min DO Isidro Mast Work Phone: [facility] 09-03-2023 11:08-0500 SaO2% (BldA) [Mass fraction] 98 % DO Isidro Mast Work Phone: [facility] 09-03-2023 11:08-0500 Systolic blood pressure 144 mm[Hg] DO Isidro Mast Work Phone: [facility] 09-03-2023 10:28-0500 Inhaled oxygen flow rate 3 L/min DO Isidro Mast Work Phone: [facility] 09-03-2023 09:39-0500 Body height 162.56 cm DO Isidro Mast Work Phone: [facility] 09-03-2023 09:39-0500 Body weight 99.79 kg DO Isidro Mast Work Phone: [facility] 08-26-2023 14:30-0500 Body height 162.56 cm Isidro Mast Other [facility] 08-26-2023 14:30-0500 Body mass index (BMI) [Ratio] 39.01 kg/m2 Isidro Mast Other [facility] Other 08-26-2023 14:30-0500 Body temperature 96.8 [degF] Isidro Mast Other [facility] Other 08-26-2023 14:30-0500 Body weight 103.1 kg Isidro Mast Other [facility] 08-26-2023 14:30-0500 Diastolic blood pressure 78 mm[Hg] Isidro Mast Other [facility] 08-26-2023 14:30-0500 Respiratory rate 18 /min Isidro Mast Other [facility] Other 08-26-2023 14:30-0500 SaO2% (BldA) [Mass fraction] 96 % Isidro Mast Other [facility] Other 08-26-2023 14:30-0500 Systolic blood pressure 110 mm[Hg] Isidro Mast Other [facility] 08-20-2023 11:50-0500 Diastolic blood pressure 76 mm[Hg] DO Isidro Mast Work Phone: [facility] 08-20-2023 11:50-0500 Heart rate 90 /min DO Isidro Mast Work Phone: [facility] 08-20-2023 11:50-0500 Respiratory rate 16 /min DO Isidro Mast Work Phone: [facility] 08-20-2023 11:50-0500 SaO2% (BldA) [Mass fraction] 96 % DO Isidro Mast Work Phone: [facility] 08-20-2023 11:50-0500 Systolic blood pressure 138 mm[Hg] DO Isidro Mast Work Phone: [facility] 08-20-2023 11:11-0500 Inhaled oxygen flow rate 3 L/min DO Isidro Mast Work Phone: [facility] 08-20-2023 10:40-0500 Body height 162.56 cm DO Isidro Mast Work Phone: [facility] 08-20-2023 10:40-0500 Body weight 99.79 kg DO Isidro Mast Work Phone: [facility] 08-19-2023 08:20-0500 Body height 162.56 cm Flor Montoya Other [facility] 08-19-2023 08:20-0500 Body mass index (BMI) [Ratio] 37.59 kg/m2 Flor Montoya Other [facility] Other 08-19-2023 08:20-0500 Body weight 99.34 kg Flor Montoya Other [facility] Other 08-19-2023 08:20-0500 Body weight 99.33 kg DO Isidro Mast Work Phone: [facility] 08-19-2023 08:20-0500 Diastolic blood pressure 72 mm[Hg] Flor Montoya Other [facility] 08-19-2023 08:20-0500 Respiratory rate 18 /min Flor Montoya Other [employer] [facility] [employer] Other 08-19-2023 08:20-0500 SaO2% (BldA) [Mass fraction] 96 % Flor Montoya Other [facility] [employer] Other 08-19-2023 08:20-0500 Systolic blood pressure 118 mm[Hg] Florshabbir Montoya Other [facility] 08-04-2023 13:45-0500 Body height 162.56 cm Pravin Abiel Other [facility] Other 08-04-2023 13:45-0500 Body mass index (BMI) [Ratio] 37.24 kg/m2 Pravin Beebe Other [facility] [employer] Other 08-04-2023 13:45-0500 Body weight 98.43 kg Pravin Beebe Other [facility] Other 08-04-2023 13:45-0500 Diastolic blood pressure 80 mm[Hg] Pravin Beebe Other [facility] Other 08-04-2023 13:45-0500 Systolic blood pressure 126 mm[Hg] Pravin Beebe Other [facility] Other 04-24-2023 13:00-0400 Body height 162.56 cm Isidro Mast Other [facility] Other 04-24-2023 13:00-0400 Body mass index (BMI) [Ratio] 37.26 kg/m2 Isidro Mast Other [facility] Other 04-24-2023 13:00-0400 Body temperature 96.2 [degF] Isidro Mast Other [facility] Other 04-24-2023 13:00-0400 Body weight 98.48 kg Isidro Mast Other [facility] Other 04-24-2023 13:00-0400 Diastolic blood pressure 74 mm[Hg] Isidro Mast Other [facility] Other 04-24-2023 13:00-0400 Respiratory rate 18 /min Isidro Mast Other [facility] Other 04-24-2023 13:00-0400 SaO2% (BldA) [Mass fraction] 97 % Isidro Mast Other [facility] Other 04-24-2023 13:00-0400 Systolic blood pressure 136 mm[Hg] Isidro Mast Other [facility] Other 04-17-2023 15:19-0400 Body height 162.56 cm DO Isidro Mast Work Phone: [facility] 04-17-2023 10:00-0400 Body temperature 97.3 [degF] DO Isidro Mast Work Phone: [facility] 04-17-2023 10:00-0400 Diastolic blood pressure 79 mm[Hg] DO Isidro Mast Work Phone: [facility] 04-17-2023 10:00-0400 Heart rate 70 /min DO Isidro Mast Work Phone: [facility] 04-17-2023 10:00-0400 Respiratory rate 29 /min DO Isidro Mast Work Phone: [facility] 07-27-2023 10:00-0400 SaO2% (BldA) [Mass fraction] 95 % DO Isidro Mast Work Phone: [facility] 04-17-2023 10:00-0400 Systolic blood pressure 135 mm[Hg] DO Isidro Mast Work Phone: [facility] 04-17-2023 06:00-0400 Body weight 102.8 kg DO Isidro Mast Work Phone: [facility] 03-13-2023 10:27-0400 Body weight 100.25 kg Mohammad Hamdan MEDICAL PRACTICE ASSISTANT.VOLTAGE REGULATOR ASSEMBLER Work Phone: [facility] 03-13-2023 10:27-0400 Diastolic blood pressure 85 mm[Hg] Mohammad Hamdan MEDICAL PRACTICE ASSISTANT.VOLTAGE REGULATOR ASSEMBLER Work Phone: [facility] 03-13-2023 10:27-0400 Heart rate 112 /min Mohammad Hamdan MEDICAL PRACTICE ASSISTANT.VOLTAGE REGULATOR ASSEMBLER Work Phone: [facility] 03-13-2023 10:27-0400 Systolic blood pressure 135 mm[Hg] Mohammad Hamdan MEDICAL PRACTICE ASSISTANT.VOLTAGE REGULATOR ASSEMBLER Work Phone: [facility] 03-07-2023 15:59-0400 Body temperature 98.2 [degF] DO Isidro Mast Work Phone: [facility] 03-07-2023 15:59-0400 Diastolic blood pressure 80 mm[Hg] DO Isidro Mast Work Phone: [facility] 03-07-2023 15:59-0400 Heart rate 70 /min DO Isidro Mast Work Phone: [facility] 03-07-2023 15:59-0400 Respiratory rate 18 /min DO Isidro Mast Work Phone: [facility] 03-07-2023 15:59-0400 SaO2% (BldA) [Mass fraction] 98 % DO Isidro Mast Work Phone: [facility] 03-07-2023 15:59-0400 Systolic blood pressure 151 mm[Hg] DO Isidro Mast Work Phone: [facility] 03-07-2023 05:58-0400 Body weight 102.3 kg DO Isidro Mast Work Phone: [facility] 03-05-2023 16:34-0400 Body height 162.56 cm DO Isidro Mast Work Phone: [facility] 02-25-2023 13:45-0400 Body height 162.56 cm Isidro Mast Other [facility] Other 02-25-2023 13:45-0400 Body mass index (BMI) [Ratio] 37.54 kg/m2 Isidro Mast Other [facility] Other 02-25-2023 13:45-0400 Body temperature 97.4 [degF] Isidro Mast Other [facility] Other 02-25-2023 13:45-0400 Body weight 99.2 kg Isidro Mast Other [facility] Other 02-25-2023 13:45-0400 Diastolic blood pressure 82 mm[Hg] Isidro Mast Other [facility] Other 02-25-2023 13:45-0400 Respiratory rate 18 /min Isidro Mast Other [facility] Other 02-25-2023 13:45-0400 SaO2% (BldA) [Mass fraction] 97 % Isidro Mast Other [facility] Other 02-25-2023 13:45-0400 Systolic blood pressure 130 mm[Hg] Isidro Mast Other [employer] Other 02-18-2023 11:00-0400 Body height 162.56 cm [employer] Other [employer] Other 02-18-2023 11:00-0400 Body mass index (BMI) [Ratio] 37.93 kg/m2 [facility] Other [employer] Other 02-18-2023 11:00-0400 Body weight 100.25 kg [facility] Other [employer] Other 02-18-2023 11:00-0400 Diastolic blood pressure 80 mm[Hg] [facility] Other [employer] Other 02-18-2023 11:00-0400 Systolic blood pressure 124 mm[Hg] [facility] Other [employer] Other 02-17-2023 12:00-0400 Body temperature 98 [degF] DO Isidro Mast Work Phone: [facility] 02-17-2023 12:00-0400 Diastolic blood pressure 78 mm[Hg] DO Isidro Mast Work Phone: [facility] 02-17-2023 12:00-0400 Heart rate 90 /min DO Isidro Mast Work Phone: [facility] 02-17-2023 12:00-0400 Respiratory rate 18 /min DO Isidro Mast Work Phone: [facility] 02-17-2023 12:00-0400 SaO2% (BldA) [Mass fraction] 95 % DO Isidro Mast Work Phone: [facility] 02-17-2023 12:00-0400 Systolic blood pressure 128 mm[Hg] DO Isidro Mast Work Phone: [facility] 02-17-2023 06:00-0400 Body weight 102 kg DO Isidro Mast Work Phone: [facility] 02-15-2023 08:35-0400 Body height 162.56 cm DO Isidro Mast Work Phone: [facility] 01-30-2023 11:00-0400 Body height 162.56 cm [employer] Other [facility] Other 01-30-2023 11:00-0400 Body mass index (BMI) [Ratio] 38.27 kg/m2 [facility] Other [employer] Other 01-30-2023 11:00-0400 Body weight 101.15 kg [employer] Other [employer] Other 01-30-2023 11:00-0400 Diastolic blood pressure 92 mm[Hg] [facility] Other [employer] Other 01-30-2023 11:00-0400 Systolic blood pressure 152 mm[Hg] [facility] Other [employer] Other 01-27-2023 11:27-0400 Body temperature 97.3 [degF] DO Isidro Mast Work Phone: [facility] 01-27-2023 11:27-0400 Diastolic blood pressure 81 mm[Hg] DO Isidro Mast Work Phone: [facility] 01-27-2023 11:27-0400 Heart rate 78 /min DO Isidro Mast Work Phone: [facility] 01-27-2023 11:27-0400 Respiratory rate 14 /min DO Isidro Mast Work Phone: [phone] [place] [address] 01-27-2023 11:27-0400 SaO2% (BldA) [Mass fraction] 98 % DO Isidro Mast Work Phone: [facility] 01-27-2023 11:27-0400 Systolic blood pressure 125 mm[Hg] DO Isidro Mast Work Phone: [facility] 01-27-2023 00:06-0400 Body height 162.56 cm DO Isidro Mast Work Phone: [facility] 01-27-2023 00:06-0400 Body weight 101.4 kg DO Isidro Mast Work Phone: [facility] 01-26-2023 22:47-0400 Diastolic blood pressure 79 mm[Hg] DO Isidro Mast Work Phone: [facility] 01-26-2023 22:47-0400 Heart rate 76 /min DO Isidro Mast Work Phone: [facility] 01-26-2023 22:47-0400 Respiratory rate 20 /min DO Isidro Mast Work Phone: [facility] 01-26-2023 22:47-0400 SaO2% (BldA) [Mass fraction] 98 % DO Isidro Mast Work Phone: [facility] 01-26-2023 22:47-0400 Systolic blood pressure 135 mm[Hg] DO Isidro Mast Work Phone: [facility] 01-26-2023 20:39-0400 Body temperature 97.6 [degF] DO Isidro Mast Work Phone: [facility] 01-26-2023 20:18-0400 Body height 162.56 cm DO Isidro Mast Work Phone: [facility] 01-26-2023 20:18-0400 Body weight 107.4 kg DO Isidro Mast Work Phone: [facility] 01-15-2023 16:15-0400 Body height 162.56 cm Pravin Beebe Other [facility] Other 01-15-2023 16:15-0400 Diastolic blood pressure 72 mm[Hg] Pravin Beebe Other [facility] Other 01-15-2023 16:15-0400 Respiratory rate 18 /min Pravin Beebe Other [employer] Other 01-15-2023 16:15-0400 SaO2% (BldA) [Mass fraction] 98 % Pravin Beebe Other [employer] Other 01-15-2023 16:15-0400 Systolic blood pressure 134 mm[Hg] Pravin Beebe Other [facility] Other 01-08-2023 13:40-0400 Diastolic blood pressure 74 mm[Hg] DO Isidro Mast Work Phone: [facility] 01-08-2023 13:40-0400 Heart rate 78 /min DO Isidro Mast Work Phone: [facility] 01-08-2023 13:40-0400 Respiratory rate 16 /min DO Isidro Mast Work Phone: [facility] 01-08-2023 13:40-0400 SaO2% (BldA) [Mass fraction] 98 % DO Isidro Mast Work Phone: [facility] 01-08-2023 13:40-0400 Systolic blood pressure 136 mm[Hg] DO Isidro Mast Work Phone: [facility] 01-08-2023 13:00-0400 Inhaled oxygen flow rate 3 L/min DO Isidro Mast Work Phone: [facility] 01-08-2023 10:56-0400 Body height 162.56 cm DO Isidro Mast Work Phone: [facility] 01-08-2023 10:56-0400 Body weight 99.79 kg DO Isidro Mast Work Phone: [facility] 01-06-2023 14:30-0400 Body height 162.56 cm Isidro Mast Other [employer] Other 01-06-2023 14:30-0400 Body mass index (BMI) [Ratio] 37.95 kg/m2 Isidro Mast Other [employer] Other 01-06-2023 14:30-0400 Body temperature 96.7 [degF] Isidro Mast Other [employer] Other 01-06-2023 14:30-0400 Body weight 100.29 kg Isidro Mast Other [employer] Other 01-06-2023 14:30-0400 Diastolic blood pressure 68 mm[Hg] Isidro Mast Other [employer] Other 01-06-2023 14:30-0400 SaO2% (BldA) [Mass fraction] 94 % Isidro Mast Other [employer] Other 01-06-2023 14:30-0400 Systolic blood pressure 118 mm[Hg] Isidro Mast Other [employer] Other 12-30-2022 22:49-0400 Diastolic blood pressure 88 mm[Hg] DO Isidro Mast Work Phone: [facility] 12-30-2022 22:49-0400 Heart rate 73 /min DO Isidro Mast Work Phone: [facility] 12-30-2022 22:49-0400 Respiratory rate 18 /min DO Isidro Mast Work Phone: [facility] 12-30-2022 22:49-0400 SaO2% (BldA) [Mass fraction] 97 % DO Isidro Mast Work Phone: [facility] 12-30-2022 22:49-0400 Systolic blood pressure 151 mm[Hg] DO Isidro Mast Work Phone: [facility] 12-30-2022 18:39-0400 Body height 162.56 cm DO Isidro Mast Work Phone: [facility] 12-30-2022 18:39-0400 Body temperature 98.7 [degF] DO Isidro Mast Work Phone: [facility] 12-30-2022 18:39-0400 Body weight 99.79 kg DO Isidro Mast Work Phone: [facility] 12-18-2022 13:00-0400 Diastolic blood pressure 69 mm[Hg] DO Isidro Mast Work Phone: [facility] 12-18-2022 13:00-0400 Heart rate 71 /min DO Isidro Mast Work Phone: [facility] 12-18-2022 13:00-0400 Respiratory rate 16 /min DO Isidro Mast Work Phone: [facility] 12-18-2022 13:00-0400 SaO2% (BldA) [Mass fraction] 100 % DO Isidro Mast Work Phone: [facility] 12-18-2022 13:00-0400 Systolic blood pressure 139 mm[Hg] DO Isidro Mast Work Phone: [facility] 12-18-2022 12:20-0400 Inhaled oxygen flow rate 3 L/min DO Isidro Mast Work Phone: [facility] 12-18-2022 11:14-0400 Body height 162.56 cm DO Isidro Mast Work Phone: [facility] 12-18-2022 11:14-0400 Body weight 99.79 kg DO Isidro Mast Work Phone: [facility] 12-04-2022 13:00-0400 Diastolic blood pressure 86 mm[Hg] DO Isidro Mast Work Phone: [facility] 12-04-2022 13:00-0400 Heart rate 80 /min DO Isidro Mast Work Phone: [facility] 12-04-2022 13:00-0400 Respiratory rate 16 /min DO Isidro Mast Work Phone: [facility] 12-04-2022 13:00-0400 SaO2% (BldA) [Mass fraction] 99 % DO Isidro Mast Work Phone: [facility] 12-04-2022 13:00-0400 Systolic blood pressure 161 mm[Hg] DO Isidro Mast Work Phone: [facility] 12-04-2022 11:34-0400 Body height 162.56 cm DO Isidro Mast Work Phone: [facility] 12-04-2022 11:34-0400 Body weight 99.79 kg DO Isidro Mast Work Phone: [facility] 12-03-2022 01:03-0400 Diastolic blood pressure 72 mm[Hg] DO Isidro Mast Work Phone: [facility] 12-03-2022 01:03-0400 Systolic blood pressure 168 mm[Hg] DO Isidro Mast Work Phone: [facility] 12-03-2022 00:55-0400 Heart rate 80 /min DO Isidro Mast Work Phone: [facility] 12-03-2022 00:55-0400 Respiratory rate 20 /min DO Isidro Mast Work Phone: [facility] 12-03-2022 00:55-0400 SaO2% (BldA) [Mass fraction] 100 % DO Isidro Mast Work Phone: [facility] 12-02-2022 21:06-0400 Body height 162.56 cm DO Isidro Mast Work Phone: [facility] 12-02-2022 21:06-0400 Body temperature 97.6 [degF] DO Isidro Mast Work Phone: [facility] 12-02-2022 21:06-0400 Body weight 99.79 kg DO Isidro Mast Work Phone: [facility] 11-25-2022 10:30-0500 Body height 162.56 cm Pravin Beebe Other [employer] Other 11-25-2022 10:30-0500 Body mass index (BMI) [Ratio] 38.38 kg/m2 Pravin Bee[employer] Other [employer] Other 11-25-2022 10:30-0500 Body weight 101.42 kg Pravin Beebe Other [employer] Other 11-25-2022 10:30-0500 Diastolic blood pressure 80 mm[Hg] Pravin Beebe Other [employer] Other 11-25-2022 10:30-0500 SaO2% (BldA) [Mass fraction] 98 % Pravin Beebe Other [employer] Other 11-25-2022 10:30-0500 Systolic blood pressure 140 mm[Hg] Pravin Beebe Other [employer] Other 11-07-2022 11:00-0500 Body height 162.56 cm [facility] Other [employer] Other 11-07-2022 11:00-0500 Body mass index (BMI) [Ratio] 38.45 kg/m2 [facility] Other [employer] Other 11-07-2022 11:00-0500 Body weight 101.61 kg [facility] Other [employer] Other 2022 12:30-0500 Body height 162.56 cm Isidro Mast Other [employer] Other 2022 12:30-0500 Body mass index (BMI) [Ratio] 38.55 kg/m2 Isidro Mast Other [employer] Other 2022 12:30-0500 Body temperature 97.4 [degF] Isidro Mast Other [employer] Other 2022 12:30-0500 Body weight 101.88 kg Isidro Mast Other [employer] Other 2022 12:30-0500 Diastolic blood pressure 76 mm[Hg] Isidro Mast Other [employer] Other 2022 12:30-0500 Respiratory rate 16 /min Isidro Mast Other [employer] Other 2022 12:30-0500 SaO2% (BldA) [Mass fraction] 98 % Isidro Mast Other [employer] Other 2022 12:30-0500 Systolic blood pressure 124 mm[Hg] Isidro Mast Other [employer] Other 07-01-2022 10:00-0400 Body height 162.56 cm Isidro Mast Other [employer] Other 07-01-2022 10:00-0400 Body mass index (BMI) [Ratio] 40.18 kg/m2 Isidro Mast Other [employer] Other 07-01-2022 10:00-0400 Body temperature 96.8 [degF] Isidro Mast Other [employer] Other 07-01-2022 10:00-0400 Body weight 106.19 kg Isidro Mast Other [employer] Other 07-01-2022 10:00-0400 Diastolic blood pressure 82 mm[Hg] Isidro Mast Other [employer] Other 07-01-2022 10:00-0400 Respiratory rate 18 /min Isidro Mast Other [employer] Other 07-01-2022 10:00-0400 SaO2% (BldA) [Mass fraction] 99 % Isidro Mast Other [employer] Other 07-01-2022 10:00-0400 Systolic blood pressure 140 mm[Hg] Isidro Mast Other [employer] Other 05-02-2022 05:18-0400 Diastolic blood pressure 72 mm[Hg] DO Isidro Mast Work Phone: [facility] 05-02-2022 05:18-0400 Heart rate 92 /min DO Isidro Mast Work Phone: [facility] 05-02-2022 05:18-0400 Respiratory rate 17 /min DO Isidro Mast Work Phone: [facility] 05-02-2022 05:18-0400 SaO2% (BldA) [Mass fraction] 94 % DO Isidro Mast Work Phone: [facility] 05-02-2022 05:18-0400 Systolic blood pressure 137 mm[Hg] DO Isidro Mast Work Phone: [facility] 05-02-2022 00:13-0400 Body height 162.56 cm DO Isidro Mast Work Phone: [facility] 05-02-2022 00:13-0400 Body temperature 98.3 [degF] DO Isidro Mast Work Phone: [facility] 05-02-2022 00:13-0400 Body weight 108.86 kg DO Isidro Mast Work Phone: [facility] 02-25-2022 10:45-0400 Body height 162.56 cm Isidro Mast Other [employer] Other 02-25-2022 10:45-0400 Body mass index (BMI) [Ratio] 40.85 kg/m2 Isidro Mast Other [employer] Other 02-25-2022 10:45-0400 Body weight 107.96 kg Isidro Mast Other [employer] Other 02-25-2022 10:45-0400 Diastolic blood pressure 80 mm[Hg] Isidro Mast Other [employer] Other 02-25-2022 10:45-0400 Respiratory rate 18 /min Isidro Mast Other [employer] Other 02-25-2022 10:45-0400 SaO2% (BldA) [Mass fraction] 99 % Isidro Mast Other [employer] Other 02-25-2022 10:45-0400 Systolic blood pressure 141 mm[Hg] Isidro Mast Other [employer] Other 02-20-2022 15:15-0400 Body height 162.56 cm Pravin Beebe Other [employer] Other 02-20-2022 15:15-0400 Body mass index (BMI) [Ratio] 41.88 kg/m2 Pravin Beebe Other [employer] Other 02-20-2022 15:15-0400 Body weight 110.68 kg Pravin Beebe Other [employer] Other 02-20-2022 15:15-0400 Diastolic blood pressure 88 mm[Hg] Pravin Beebe Other [employer] Other 02-20-2022 15:15-0400 SaO2% (BldA) [Mass fraction] 97 % Pravin Beebe Other [employer] Other 02-20-2022 15:15-0400 Systolic blood pressure 146 mm[Hg] Pravinal Beebe Other [employer] Other 01-30-2022 14:15-0400 Body height 162.56 cm Pravinal Beebe Other [employer] Other 01-30-2022 14:15-0400 Body mass index (BMI) [Ratio] 41.26 kg/m2 Pravin Bee[employer] Other [employer] Other 01-30-2022 14:15-0400 Body weight 109.05 kg Pravin Beebe Other [employer] Other 01-30-2022 14:15-0400 Diastolic blood pressure 84 mm[Hg] Pravin Beebe Other [employer] Other 01-30-2022 14:15-0400 SaO2% (BldA) [Mass fraction] 98 % Pravin Beebe Other [employer] Other 01-30-2022 14:15-0400 Systolic blood pressure 138 mm[Hg] Pravin Beebe Other [employer] Other 12-31-2021 11:30-0400 Body height 162.56 cm Isidro Mast Other [employer] Other 12-31-2021 11:30-0400 Body mass index (BMI) [Ratio] 41.23 kg/m2 Isidro Mast Other [employer] Other 12-31-2021 11:30-0400 Body temperature 97.7 [degF] Isidro Mast Other [employer] Other 12-31-2021 11:30-0400 Body weight 108.95 kg Isidro Mast Other [employer] Other 12-31-2021 11:30-0400 Diastolic blood pressure 84 mm[Hg] Isidro Mast Other [employer] Other 12-31-2021 11:30-0400 Respiratory rate 18 /min Isidro Mast Other [employer] Other 12-31-2021 11:30-0400 SaO2% (BldA) [Mass fraction] 98 % Isidro Mast Other [employer] Other 12-31-2021 11:30-0400 Systolic blood pressure 146 mm[Hg] Isidro Mast Other [employer] Other 12-24-2021 12:00-0400 Body height 162.56 cm Pravin Abiel Other [employer] Other 12-24-2021 12:00-0400 Body mass index (BMI) [Ratio] 40.95 kg/m2 Pravin Abiel Other [employer] Other 12-24-2021 12:00-0400 Body weight 108.23 kg Pravinal Beebe Other [employer] Other 12-24-2021 12:00-0400 Diastolic blood pressure 82 mm[Hg] Pravin Beebe Other [employer] Other 12-24-2021 12:00-0400 SaO2% (BldA) [Mass fraction] 97 % Pravin Lyonky Other [employer] Other 12-24-2021 12:00-0400 Systolic blood pressure 136 mm[Hg] Pravin Beebe Other [employer] Other 10-29-2021 10:15-0500 Body height 162.56 cm Isidro Mast Other [employer] Other 10-29-2021 10:15-0500 Body mass index (BMI) [Ratio] 40.92 kg/m2 Isidro Mast Other [employer] Other 10-29-2021 10:15-0500 Body temperature 97.6 [degF] Isidro Mast Other [employer] Other 10-29-2021 10:15-0500 Body weight 108.14 kg Isidro Mast Other [employer] Other 10-29-2021 10:15-0500 Diastolic blood pressure 90 mm[Hg] Isidro Mast Other [employer] Other 10-29-2021 10:15-0500 Respiratory rate 18 /min Isidro Mast Other [employer] Other 10-29-2021 10:15-0500 Systolic blood pressure 156 mm[Hg] Isirdo Mast Other [employer] Other 07-02-2021 10:30-0400 Body height 162.56 cm Isidro Mast Other [employer] Other 07-02-2021 10:30-0400 Body mass index (BMI) [Ratio] 40.5 kg/m2 Isidro Mast Other [employer] Other 07-02-2021 10:30-0400 Body temperature 96.8 [degF] Isidro Mast Other [employer] Other 07-02-2021 10:30-0400 Body weight 107.05 kg Isidro Mast Other [employer] Other 07-02-2021 10:30-0400 Diastolic blood pressure 78 mm[Hg] Isidro Mast Other [employer] Other 07-02-2021 10:30-0400 Respiratory rate 18 /min Isidro Mast Other [employer] Other 07-02-2021 10:30-0400 SaO2% (BldA) [Mass fraction] 98 % Isidro Mast Other [employer] Other 07-02-2021 10:30-0400 Systolic blood pressure 122 mm[Hg] Isidro Mast Other [employer] Other Encounters Encounter Date Encounter Type Care Provider Facility Start: 11-14-2024 End: 11-14-2024 Emergency department patient visit Isidro Mast DO Work Phone: [facility]Emergency [facility] Work Phone: Start: 11-09-2024 End: 11-09-2024 ambulatory Isidro Mast DO Work Phone: [facility] Work Phone: Start: 11-09-2024 End: 11-09-2024 Patient encounter procedure Isidro Mast DO Work Phone: [facility] [place] Work Phone: Start: 2024 End: 2024 Bamboo flowsheet Steven Carolina DO Work Phone: [facility] Start: 2024 End: 2024 Bamboo flowsheet Steven Carolina DO Work Phone: [facility] Start: 2024 End: 2024 Patient encounter procedure Steven Carolina DO Work Phone: [facility] Comment on above: Intractable chronic migraine without aura and with status migrainosus (CMS/HCC) (Primary Dx) Start: 2024 End: 2024 ambulatory STEVEN FIGUEROA Not Available Start: 10-27-2024 End: 10-27-2024 ambulatory Isidro Mast DO Work Phone: [facility] Work Phone: Start: 10-27-2024 End: 10-27-2024 Patient encounter procedure Isidro Mast DO Work Phone: [facility] Work Phone: Start: 10-26-2024 Non-patient / Non-visit Isidro M ast DO Work Phone: [facility] [place] Work Phone: Start: 10-25-2024 Non-patient / Non-visit Isidro M ast DO Work Phone: [facility] [place] Work Phone: Start: 10-18-2024 End: 10-18-2024 Patient encounter procedure Isidro Mast DO Work Phone: [facility] [address] Work Phone: Start: 10-18-2024 End: 10-18-2024 ambulatory Isidro Mast DO Work Phone: [facility] Work Phone: Start: 10-18-2024 End: 10-18-2024 Emergency department patient visit Isidro Mast DO Work Phone: [facility]Emergency [facility] Work Phone: Start: 10-13-2024 Non-patient / Non-visit Isidro M ast DO Work Phone: [facility] Work Phone: Start: 10-13-2024 End: 10-13-2024 Admission to same day surgery center Isidro Mast DO Work Phone: [facility] Work Phone: Start: 10-13-2024 End: 10-13-2024 ambulatory Isidro Mast DO Work Phone: [facility] Work Phone: Start: 10-06-2024 End: 10-06-2024 ambulatory Isidro Mast DO Work Phone: [facility] Work Phone: Start: 10-06-2024 End: 10-06-2024 Patient encounter procedure Isidro Mast DO Work Phone: [facility] Work Phone: Start: 10-04-2024 End: 10-04-2024 Ronny ALEJO PROGRESO Comment on above: Lumbar radiculopathy Start: 09-29-2024 Non-patient / Non-visit Isidro M ast DO Work Phone: [facility] Work Phone: Start: 09-29-2024 End: 09-29-2024 Admission to same day surgery center Isidro Mast DO Work Phone: [facility] Work Phone: Start: 09-29-2024 End: 09-29-2024 ambulatory Isidro Mast DO Work Phone: [facility] Work Phone: Start: 09-27-2024 End: 09-27-2024 ambulatory Isidro Mast DO Work Phone: [facility] Work Phone: Start: 09-27-2024 End: 09-27-2024 Patient encounter procedure Isidro Mast DO Work Phone: [facility] [place] Work Phone: Start: 09-17-2024 Non-patient / Non-visit Isidro M ast DO Work Phone: [facility] Work Phone: Start: 09-14-2024 End: 09-14-2024 Patient encounter procedure Isidro Mast DO Work Phone: [facility]-Lab [address] [place] Work Phone: Start: 09-14-2024 End: 09-14-2024 ambulatory Isidro Mast Facility:[facility] Start: 09-13-2024 End: 09-13-2024 Patient encounter procedure Isidro Mast DO Work Phone: [facility] [place] Work Phone: Start: 09-09-2024 End: 09-09-2024 Bamboo flowsheet Conchis Delroyr FINANCE VICE PRESIDENT Work Phone: [facility] [address] [facility] Start: 09-09-2024 End: 09-09-2024 Bamboo flowsheet Conchis Meghamor FINANCE VICE PRESIDENT Work Phone: [facility] [address] [facility] Start: 09-09-2024 End: 09-09-2024 Office outpatient visit 15 minutes Conchis Starks FINANCE VICE PRESIDENT Work Phone: [facility] Comment on above: Lumbar radiculopathy (Primary Dx); Intractable chronic migraine without aura and with status migrainosus (CMS/HCC); TIA (transient ischemic attack); Weakness Start: 09-09-2024 End: 09-09-2024 ambulatory CONCHIS DELROYR Not Available Start: 09-07-2024 End: 09-07-2024 Patient encounter procedure Isidro Mast DO Work Phone: [facility] Work Phone: Start: 08-09-2024 End: 08-09-2024 ambulatory Isidro Mast DO Work Phone: [facility] Work Phone: Start: 08-09-2024 End: 08-09-2024 Patient encounter procedure Isidro Mast DO Work Phone: [facility] [place] Work Phone: Start: 08-04-2024 End: 08-04-2024 ambulatory Janelle Giljustyn Facility: [place] Start: 08-03-2024 End: 08-03-2024 Patient encounter procedure Isidro Mast DO Work Phone: [facility]-Ultrasound [facility] [place] Work Phone: Start: 08-03-2024 End: 08-03-2024 ambulatory Isidro Mast DO Work Phone: [facility] Work Phone: Start: 07-26-2024 End: 07-26-2024 Telephone encounter Kulwinder Johnson MA [facility] [address] Start: 07-22-2024 End: 07-22-2024 Bamboo flowsheet Steven Carolina DO Work Phone: [facility] Start: 07-22-2024 End: 07-22-2024 Bamboo flowsheet Steven Carolina DO Work Phone: [facility] Start: 07-22-2024 End: 07-22-2024 Patient encounter procedure Steven Carolina DO Work Phone: [facility] [address] Comment on above: Intractable chronic migraine without aura and without status migrainosus (CMS/HCC) (Primary Dx) Start: 07-22-2024 End: 07-22-2024 ambulatory STEVEN CAROLINA Not Available Start: 07-06-2024 End: 07-06-2024 Office outpatient visit 25 minutes Capri Srivastava NP Work Phone: [facility] Comment on above: Acute rhinosinusitis (Primary Dx); Nausea Start: 07-06-2024 End: 07-06-2024 ambulatory CAPRI SRIVASTAVA Not Available Start: 06-22-2024 End: 06-22-2024 Refill Kulwinder Johnson [facility] Comment on above: Intractable chronic migraine without aura and without status migrainosus (CMS/HCC) Start: 06-17-2024 End: 06-17-2024 Bamboo flowsheet Conchis Starks FINANCE VICE PRESIDENT Work Phone: [facility] Start: 06-17-2024 End: 06-17-2024 Bamboo flowsheet Conchis Pottsr FINANCE VICE PRESIDENT Work Phone: [facility] Start: 06-17-2024 End: 06-17-2024 Office outpatient visit 15 minutes Conchis Starks FINANCE VICE PRESIDENT Work Phone: [facility] Comment on above: Lumbar radiculopathy (Primary Dx); Intractable chronic migraine without aura and without status migrainosus (CMS/HCC); Cerebrovascular accident (CVA), unspecified mechanism (CMS/HCC); Migraine variant (CMS/HCC); Radiculopathy, lumbar region Start: 06-17-2024 End: 06-17-2024 ambulatory CONCHIS POTTSR Not Available Start: 06-14-2024 End: 06-14-2024 ambulatory DO Isidro Mast Work Phone: [facility] Work Phone: Start: 06-14-2024 End: 06-14-2024 Patient encounter procedure DO Isidro Mast Work Phone: [facility] [place] Work Phone: Start: 06-09-2024 Non-patient / Non-visit DO Linh c Mast Work Phone: [facility] [place] Work Phone: Start: 06-06-2024 End: 06-08-2024 ambulatory Isidro Mast Facility:[facility] Start: 06-06-2024 End: 06-08-2024 Evaluation and management of inpatient DO Isidro Mast Work Phone: [facility] Work Phone: Start: 06-06-2024 End: 06-08-2024 observation encounter DO Isidro Mast Work Phone: [facility] Work Phone: Start: 06-03-2024 Non-patient / Non-visit DO Linh c Mast Work Phone: [facility] Work Phone: Start: 06-02-2024 End: 06-02-2024 Emergency department patient visit DO Isidro Mast Work Phone: [facility]-Emergency Room Work Phone: Start: 05-31-2024 End: 05-31-2024 Refill Kulwinder Johnson MA [facility] Comment on above: Lumbar radiculopathy Start: 05-26-2024 End: 05-26-2024 Refill Steven Figueroa DO Work Phone: [facility] Comment on above: Lumbar radiculopathy Start: 05-20-2024 Non-patient / Non-visit DO Linh c Mast Work Phone: [facility] Work Phone: Start: 05-20-2024 End: 05-20-2024 Emergency department patient visit DO Isidro Mast Work Phone: [facility]-Emergency Room Work Phone: Start: 04-22-2024 End: 04-22-2024 ambulatory STEVEN FIGUEROA Not Available Start: 04-05-2024 End: 04-05-2024 ambulatory DO Isidro Mast Work Phone: [facility] Work Phone: Start: 04-05-2024 End: 04-05-2024 Patient encounter procedure DO Isidro Mast Work Phone: [facility] [place] Work Phone: Start: 03-05-2024 End: 03-05-2024 ambulatory DO Isidro Mast Work Phone: [facility] Work Phone: Start: 03-05-2024 End: 03-05-2024 Patient encounter procedure DO Isidro Mast Work Phone: [facility] [place] Work Phone: Start: 03-01-2024 Non-patient / Non-visit DO Linh c Mast Work Phone: [facility] [place] Work Phone: Start: 02-29-2024 End: 02-29-2024 Emergency department patient visit DO Isidro Mast Work Phone: [facility]-Emergency Room Work Phone: Start: 02-19-2024 End: 02-19-2024 ambulatory CONCHIS STARKS Not Available Start: 02-04-2024 Non-patient / Non-visit DO Linh c Mast Work Phone: [facility] Pain Management Work Phone: Start: 02-04-2024 End: 02-04-2024 Admission to same day surgery center DO Isidro Mast Work Phone: [facility]-Digestive Health Work Phone: Start: 02-04-2024 End: 02-04-2024 ambulatory Pravin Beebe Facility:[facility] Start: 01-26-2024 End: 01-26-2024 ambulatory DO Isidro Mast Work Phone: [facility] Work Phone: Start: 01-26-2024 End: 01-26-2024 Patient encounter procedure DO Isidro Mast Work Phone: [facility] Work Phone: Start: 01-22-2024 End: 01-22-2024 ambulatory STEVEN FIGUEROA Not Available Start: 01-06-2024 End: 01-06-2024 ambulatory DO Isidro Mast Work Phone: [facility] Work Phone: Start: 01-06-2024 End: 01-06-2024 Patient encounter procedure DO Isidro Mast Work Phone: [facility] Neuro[facility] Work Phone: Start: 12-24-2023 End: 12-25-2023 Emergency department patient visit DO Isidro Mast Work Phone: [facility]-Emergency Room Work Phone: Start: 12-10-2023 End: 12-10-2023 ambulatory DO Isidro Mast Work Phone: [facility] Work Phone: Start: 12-10-2023 End: 12-10-2023 Patient encounter procedure DO Isidro Mast Work Phone: [facility] Work Phone: Start: 11-27-2023 End: 11-27-2023 Patient encounter procedure DO Isidro Mast Work Phone: [facility] [place] Work Phone: Start: 11-26-2023 Non-patient / Non-visit DO Linh c Mast Work Phone: [facility] Work Phone: Start: 11-26-2023 End: 11-26-2023 Admission to same day surgery center DO Isidro Mast Work Phone: [facility]-Dig[facility]ive [facility] Work Phone: Start: 11-26-2023 End: 11-26-2023 ambulatory Pravin Beebe Facility:[facility] Start: 11-19-2023 End: 11-19-2023 Patient encounter procedure DO Isidro Mast Work Phone: [facility] Work Phone: Start: 11-19-2023 End: 11-19-2023 ambulatory Isidro Mast Facility:[facility] Start: 11-13-2023 End: 11-13-2023 ambulatory DO Isidro Mast Work Phone: [facility] Work Phone: Start: 11-13-2023 End: 11-13-2023 Patient encounter procedure DO Isidro Mast Work Phone: [facility] Work Phone: Start: 11-10-2023 End: 11-10-2023 ambulatory DO Isidro Mast Work Phone: [facility] Work Phone: Start: 11-10-2023 End: 11-10-2023 Patient encounter procedure DO Isidro Mast Work Phone: [facility] Work Phone: Start: 11-05-2023 Non-patient / Non-visit DO Linh c Mast Work Phone: [facility] Work Phone: Start: 11-05-2023 End: 11-05-2023 Admission to same day surgery center DO Isidro Mast Work Phone: [facility]Dig[facility] Work Phone: Start: 11-05-2023 End: 11-05-2023 ambulatory DO Isidro Mast Work Phone: [facility] Work Phone: Start: 10-15-2023 End: 10-15-2023 ambulatory Pravin Beebe Other [facility] Other Start: 10-15-2023 Office outpatient vi sit 15 minutes Pravin Beebe [facility] Start: 10-15-2023 End: 10-15-2023 Patient encounter procedure DO Isidro Mast Work Phone: [facility]- Start: 10-08-2023 (PROC) PROCEDURE Pravin Beebe [facility] Out[facility] Start: 10-08-2023 End: 10-08-2023 Admission to same day surgery center DO Isidro Mast Work Phone: [facility]-Digestive [facility] Work Phone: Start: 10-08-2023 End: 10-08-2023 ambulatory DO Isidro Mast Work Phone: [facility] Work Phone: Start: 09-12-2023 End: 09-12-2023 ambulatory Pravin Beebe Other [facility] Other Start: 09-12-2023 Office outpatient vi sit 25 minutes Pravin Beebe [facility] Start: 09-12-2023 End: 09-12-2023 Patient encounter procedure DO Isidro Mast Work Phone: [facility] Work Phone: Start: 09-03-2023 (PROC) [facility] Start: 09-03-2023 End: 09-03-2023 Admission to same day surgery center DO Isidro Mast Work Phone: [facility]-Dig[facility]ive [facility] Work Phone: Start: 09-03-2023 End: 09-03-2023 ambulatory DO Isidro Mast Work Phone: [facility] Work Phone: Start: 08-26-2023 End: 08-26-2023 ambulatory Isidro Mast Other [facility] Other Start: 08-26-2023 Office outpatient vi sit 25 minutes Isidro Mast [facility] [place] Start: 08-26-2023 End: 08-26-2023 Patient encounter procedure DO Isidro Mast Work Phone: [facility] [place] Work Phone: Start: 08-20-2023 (PROC) PROCEDURE Pravin Beebe [facility] Medical OutPt Start: 08-20-2023 End: 08-20-2023 Admission to same day surgery center DO Isidro Mast Work Phone: [facility]-Digestive [facility] Work Phone: Start: 08-20-2023 End: 08-20-2023 ambulatory DO Isidro Mast Work Phone: [facility] Work Phone: Start: 08-19-2023 End: 08-19-2023 ambulatory Flor Montoya Other [facility] Other Start: 08-19-2023 Office outpatient vi sit 15 minutes Flor Montoya [facility] Neurosurgery Start: 08-19-2023 End: 08-19-2023 Patient encounter procedure DO Isidro Mast Work Phone: [facility] Work Phone: Start: 08-04-2023 End: 08-04-2023 ambulatory Pravin Beebe Other [place] Other Start: 08-04-2023 Office outpatient vi sit 25 minutes Pravin Beebe [facility] Pain Management Start: 07-28-2023 End: 07-28-2023 ambulatory DO Isidro Mast Work Phone: [facility] Work Phone: Start: 07-28-2023 End: 07-28-2023 Patient encounter procedure DO Isidro Mast Work Phone: [facility]-Ultrasound [address] [place] Work Phone: Start: 07-14-2023 End: 07-14-2023 ambulatory Isidro Mast Other [employer] Other Start: 07-14-2023 Telephone encounter Isidro Mast [facility] Start: 05-01-2023 End: 05-01-2023 ambulatory Isidro Mast Other [employer] Other Start: 05-01-2023 Telephone encounter Isidro Mast [facility] Start: 04-29-2023 Telephone encounter Isidro Mast [facility] Start: 04-29-2023 End: 04-29-2023 ambulatory DO Isidro Mast Work Phone: [facility] Work Phone: Start: 04-29-2023 End: 04-29-2023 Patient encounter procedure DO Isidro Mast Work Phone: [facility]-Lab [facility] Start: 04-28-2023 End: 04-28-2023 ambulatory Isidro Mast Other [employer] Other Start: 04-28-2023 Telephone encounter Isidro Mast [facility] Start: 04-25-2023 End: 04-25-2023 ambulatory Isidro Mast Other [employer] Other Start: 04-25-2023 Telephone encounter Isidro Mast [facility] Start: 04-24-2023 End: 04-24-2023 ambulatory Isidro Mast Other [employer] Other Start: 04-24-2023 Transitional care giselle terrazas srvc 14 day discharge Isidro Mast [facility] Start: 04-16-2023 ambulatory Facility:[id number] Start: 04-16-2023 End: 04-17-2023 Evaluation and management of inpatient DO Isidro Mast Work Phone: [facility] Work Phone: Start: 04-16-2023 End: 04-17-2023 observation encounter DO Isidro Mast Work Phone: [facility] Work Phone: Start: 03-13-2023 End: 03-13-2023 ambulatory ISIDRO E MAST Facility:[facility] Start: 03-13-2023 End: 03-13-2023 Patient encounter procedure Po Rivero APRN.[employer]ATOR [employer] Work Phone: Neurology Comment on above: Chronic migraine wit hout aura, intractable, without status migrainosus (Primary Dx) Start: 03-11-2023 End: 03-11-2023 ambulatory Isidro Mast Other [employer] Other Start: 03-11-2023 Telephone encounter Isidro Mast [facility] Start: 03-05-2023 End: 03-07-2023 Evaluation and management of inpatient DO Isidro Mast Work Phone: [facility] Work Phone: Start: 02-25-2023 End: 02-25-2023 ambulatory Isidro Mast Other [employer] Other Start: 02-25-2023 Telephone encounter Isidro Mast [facility] [place] Start: 02-25-2023 Transitional care giselle terrazas srvc 14 day discharge Isidro Mast [facility] Start: 02-21-2023 End: 02-21-2023 ambulatory Isidro Mast Other [employer] Other Start: 02-21-2023 Telephone encounter Isidro Mast [facility] Start: 02-18-2023 End: 02-18-2023 ambulatory Flor Montoya Other [employer] Other Start: 02-18-2023 Office outpatient vi sit 15 minutes Flor Montoya [facility] Neurosurgery Start: 02-16-2023 End: 02-17-2023 Evaluation and management of inpatient DO Isidro Mast Work Phone: [facility] Work Phone: Start: 02-15-2023 End: 02-17-2023 Evaluation and management of inpatient DO Isidro Mast Work Phone: [facility] Work Phone: Start: 02-15-2023 End: 02-17-2023 observation encounter DO Isidro Mast Work Phone: [facility] Work Phone: Start: 02-13-2023 End: 02-13-2023 Patient encounter procedure DO Isidro Mast Work Phone: [facility]-MRI [address] Work Phone: Start: 01-30-2023 End: 01-30-2023 ambulatory Isidro Mast Other [place] Other Start: 01-30-2023 Office outpatient vi sit 15 minutes Flor Montoya [facility] Neurosurgery Start: 01-30-2023 Telephone encounter Isidro Mast [facility] Start: 01-26-2023 End: 01-27-2023 Evaluation and management of inpatient DO Isidro Mast Work Phone: [facility] Work Phone: Start: 01-26-2023 End: 01-27-2023 observation encounter DO Isidro Mast Work Phone: [facility] Work Phone: Start: 01-26-2023 ambulatory Facility:[id number] Start: 01-15-2023 End: 01-15-2023 ambulatory Pravin Beebe Other [employer] Other Start: 01-15-2023 Office outpatient vi sit 15 minutes Pravin Beebe [facility] Start: 01-14-2023 End: 01-14-2023 ambulatory DO Isidro Mast Work Phone: [facility] Work Phone: Start: 01-14-2023 End: 01-14-2023 Discharged Recurring DO Isidro Mast Work Phone: [facility]-Physical Therapy [address] Start: 01-14-2023 Registered Recurring DO Isidro M ast Work Phone: [facility]-Physical Therapy [address] Start: 01-08-2023 (PROC) PROCEDURE Pravin Beebe [facility] Out[facility] Start: 01-08-2023 End: 01-08-2023 ambulatory Pravin Beebe Other [employer] Other Start: 01-08-2023 End: 01-08-2023 Admission to same day surgery center DO Isidro Mast Work Phone: [facility]-Digestive Health Work Phone: Start: 01-06-2023 End: 01-06-2023 ambulatory Isidro Mast Other [employer] Other Start: 01-06-2023 Office outpatient vi sit 15 minutes Isidro Mast [facility] [place] Start: 12-31-2022 End: 12-31-2022 ambulatory Isidro Mast Other [employer] Other Start: 12-31-2022 Telephone encounter Isidro Mast [facility] [place] Start: 12-30-2022 End: 12-30-2022 Emergency department patient visit DO Isidro Mast Work Phone: [facility]-Emergency Room Work Phone: Start: 12-27-2022 Registered Recurring DO Isidro M ast Work Phone: [facility]-Physical Therapy [address] Start: 12-18-2022 (PROC) PROCEDURE Pravin Beebe [facility] OutPt Start: 12-18-2022 End: 12-18-2022 Admission to same day surgery center DO Isidro Mast Work Phone: [facility]Dig[facility]ive [facility] Work Phone: Start: 12-18-2022 End: 12-18-2022 ambulatory DO Isidro Mast Work Phone: [facility] Work Phone: Start: 12-04-2022 (PROC) PROCEDURE [facility] Start: 12-04-2022 End: 12-04-2022 ambulatory Pravin Beebe Other [employer] Other Start: 12-04-2022 End: 12-04-2022 Admission to same day surgery center DO Isidro Mast Work Phone: [facility]Dig[facility]ive [facility] Work Phone: Start: 12-02-2022 End: 12-03-2022 Emergency department patient visit DO Isidro Mast Work Phone: [facility]-Emergency Room Work Phone: Start: 11-27-2022 Registered Recurring DO Isidro M ast Work Phone: [facility]-Physical Therapy [address] Start: 11-25-2022 End: 11-25-2022 ambulatory Pravin Beebe Other [employer] Other Start: 11-25-2022 Office outpatient vi sit 25 minutes Pravin Beebe [facility] Start: 11-22-2022 End: 11-22-2022 ambulatory DO Isidro Mast Work Phone: [facility] Work Phone: Start: 11-22-2022 End: 11-22-2022 Patient encounter procedure DO Isidro Mast Work Phone: [facility]-XRay [facility] [place] Work Phone: Start: 11-22-2022 Registered Recurring DO Isidro M ast Work Phone: [facility]-Physical Therapy [address] Start: 11-11-2022 End: 11-11-2022 ambulatory Flor Montoya Other [employer] Other Start: 11-11-2022 Telephone encounter Flor Montoya [facility] [employer] Start: 11-07-2022 End: 11-07-2022 ambulatory Flor Montoya Other [employer] Other Start: 11-07-2022 Office outpatient ne w 45 minutes Flor Montoya [facility] Neurosurgery Start: 2022 End: 2022 ambulatory Isidro Mast Other [employer] Other Start: 2022 Office outpatient vi sit 25 minutes Isidro Mast [facility] Start: 10-04-2022 End: 10-04-2022 ambulatory DO Isidro Mast Work Phone: [facility] Work Phone: Start: 10-04-2022 End: 10-04-2022 Patient encounter procedure DO Isidro Mast Work Phone: [facility]-Lab [facility] Start: 08-08-2022 End: 08-08-2022 Patient encounter procedure DO Isidro Mast Work Phone: [facility]-Lab [facility] Start: 07-08-2022 End: 07-08-2022 ambulatory Isidro Mast Other [employer] Other Start: 07-08-2022 Telephone encounter Isidro Mast [facility] Start: 07-01-2022 End: 07-01-2022 ambulatory Isidro Mast Other [employer] Other Start: 07-01-2022 Office outpatient vi sit 25 minutes Isidro Mast [facility] Start: 06-27-2022 End: 06-27-2022 ambulatory Isidro Mast Other [employer] Other Start: 06-27-2022 Telephone encounter Isidro Mast [facility] Start: 05-02-2022 End: 05-02-2022 ambulatory Isidro Mast Other [employer] Other Start: 05-02-2022 Telephone encounter Isidro Mast [facility] Start: 05-02-2022 End: 05-02-2022 Emergency department patient visit DO Isidro Mast Work Phone: [facility]-Emergency Room Start: 02-25-2022 End: 02-25-2022 ambulatory Isidro Mast Other [employer] Other Start: 02-25-2022 Office outpatient vi sit 25 minutes Isidro Mast [facility] Start: 02-20-2022 End: 02-20-2022 ambulatory Pravin Beebe Other [employer] Other Start: 02-20-2022 Office outpatient vi sit 15 minutes Pravin Beebe [facility] Start: 02-13-2022 (Procedure) Short Pravin Beebe [facility] Out[facility] Start: 02-13-2022 End: 02-13-2022 ambulatory Pravin Beebe Other [employer] Other Start: 02-11-2022 Refill Marlen Benson DO Work Phone: Neurology Comment on above: Refill Request Start: 01-30-2022 End: 01-30-2022 ambulatory Pravin Beebe Other [employer] Other Start: 01-30-2022 Office outpatient vi sit 25 minutes Pravin Beebe [facility] Start: 01-09-2022 (Procedure) Short Pravin Beebe [facility] Medical OutPt Start: 01-09-2022 End: 01-09-2022 ambulatory Pravin Beebe Other [employer] Other Start: 12-31-2021 End: 12-31-2021 ambulatory Isidro Mast Other [employer] Other Start: 12-31-2021 Transitional care giselle terrazas srvc 14 day discharge Isidro Mast [facility] [place] Start: 12-24-2021 End: 12-24-2021 ambulatory Isidro Mast Other [employer] Other Start: 12-24-2021 Office consultation new/estab patient 60 min Pravin Beebe [facility] Start: 12-24-2021 Telephone encounter Isidro Mast [facility] [place] Start: 12-19-2021 End: 12-19-2021 ambulatory Isidro Mast Other [employer] Other Start: 12-19-2021 Telephone encounter Isidro Mast [facility] [place] Start: 10-29-2021 End: 10-29-2021 ambulatory Isidro Mast Other [employer] Other Start: 10-29-2021 Office outpatient vi sit 25 minutes Isidro Mast [facility] [place] Start: 08-31-2021 End: 08-31-2021 ambulatory Isidro Mast Other [facility] Other Start: 08-31-2021 Telephone encounter Isidro Mast [facility] [place] Start: 07-02-2021 Nursing evaluation o f patient and report Isidro Mast [facility] Procedures Date Procedure Procedure Detail Performing Clinician Start: 10-18-2024 Plain X-ray of bilat eral hands Isidro Mast DO Work Phone: Start: 10-13-2024 [employer] Frequ ency (Bilateral) Isidro Mast DO Work Phone: Start: 09-29-2024 Injection of local anesthetic into sacroiliac joint Isidro Mast DO Work Phone: Start: 08-03-2024 Plain X-ray abdomen Linh c Mast DO Work Phone: Start: 08-03-2024 Ultrasonography of b ilateral kidneys Isidro Mast DO Work Phone: Start: 06-07-2024 Computed tomography of abdomen and pelvis with contrast DO Isidro Mast Work Phone: Start: 06-06-2024 CT of head without contrast DO Isidro Mast Work Phone: Start: 06-06-2024 Plain chest X-ray DO Er ic Mast Work Phone: Start: 06-06-2024 Respiratory Panel (PCR) DO Isidro Mast Work Phone: Start: 06-06-2024 Respiratory Panel (PCR) Isidro Mast DO Work Phone: Start: 06-02-2024 Urine culture DO Isidro M ast Work Phone: Start: 06-02-2024 CT of head without contrast DO Isidro Mast Work Phone: Start: 06-02-2024 Plain chest X-ray DO Er ic Mast Work Phone: Start: 02-29-2024 CT angiography of head DO Isidro Mast Work Phone: Start: 02-29-2024 CT angiography of ne ck vessels DO Isidro Mast Work Phone: Start: 02-29-2024 CT of head without contrast DO Isidro Mast Work Phone: Start: 02-04-2024 Procedure on hip DO Linh c Mast Work Phone: Start: 12-24-2023 Computed tomography of abdomen and pelvis with contrast DO Isidro Mast Work Phone: Start: 12-24-2023 CT of chest DO Isidro Ma st Work Phone: Start: 11-26-2023 [employer] Nerve Radio Frequ ency (Bilateral) DO Isidro Mast Work Phone: Start: 11-19-2023 Dual energy X-ray absorptiometry DO Isidro Mast Work Phone: Start: 11-05-2023 Local anesthetic fac et joint nerve block DO Isidro Mast Work Phone: Start: 10-08-2023 Epidural injection u sing fluoroscopic guidance DO Isidro Mast Work Phone: Start: 09-03-2023 Injection of spinal epidural space DO Isidro Mast Work Phone: Start: 08-20-2023 Injection of spinal epidural space DO Isidro Mast Work Phone: Start: 07-28-2023 Diagnostic radiograp hy of abdomen DO Isidro Mast Work Phone: Start: 07-28-2023 Ultrasonography of b ilateral kidneys DO Isidro Mast Work Phone: Start: 04-16-2023 CT angiography of head DO Isidro Mast Work Phone: Start: 04-16-2023 CT angiography of ne ck vessels DO Isidro Mast Work Phone: Start: 04-16-2023 CT of head without contrast DO Isidro Mast Work Phone: Start: 04-16-2023 Plain chest X-ray DO Er ic Mast Work Phone: Start: 03-04-2023 Plain chest X-ray DO Er ic Mast Work Phone: Start: 03-04-2023 CT of head without contrast DO Isidro Mast Work Phone: Start: 02-15-2023 MRI of head DO Isidro Ma st Work Phone: Start: 02-15-2023 CT angiography of head DO Isidro Mast Work Phone: Start: 02-15-2023 CT angiography of ne ck vessels DO Isidro Mast Work Phone: Start: 02-15-2023 CT of head without contrast DO Isidro Mast Work Phone: Start: 02-15-2023 Plain chest X-ray DO Er ic Mast Work Phone: Start: 02-13-2023 MR lumbar spine wo con DO Isidro Mast Work Phone: Start: 01-27-2023 MRI of head DO Isidro Ma st Work Phone: Start: 01-26-2023 CT angiography of head DO Isidro Mast Work Phone: Start: 01-26-2023 CT angiography of ne ck vessels DO Isidro Mast Work Phone: Start: 01-26-2023 CT of head without contrast DO Isidro Mast Work Phone: Start: 01-08-2023 Injection of local anesthetic into sacroiliac joint DO Isidro Mast Work Phone: Start: 12-30-2022 CT of abdomen and pe lvis without contrast DO Isidro Mast Work Phone: Start: 12-30-2022 Urine culture DO Isidro M ast Work Phone: Start: 12-18-2022 Injection of spinal epidural space DO Isidro Mast Work Phone: Start: 12-04-2022 Injection of spinal epidural space DO Isidro Mast Work Phone: Start: 11-22-2022 Pelvis X-ray DO Isidro Ma st Work Phone: Start: 11-22-2022 X-ray of lumbar spin e, six views including bending views DO Isidro Mast Work Phone: Start: 05-02-2022 CT of abdomen and pe lvis without contrast DO Isidro Mast Work Phone: Depression screening Flor Jan Other Urine culture DO Isidro Mast Work Phone: Plan of Treatment Date Care Activity Detail Author Start: 01-27-2025 End: 01-27-2025 Patient encounter procedure 01/27/2025 9:30 AM EDT Procedure Visit SAP[facility] PAUL [address] [place] [id number] Steven Figueroa DO [address] [place] [address] SAPNA PAUL Start: 12-09-2024 End: 12-09-2024 Patient encounter procedure [facility] [address] [address] Start: 2024 End: 2024 Patient encounter procedure [facility] [address] [address] Comment on above: Arrived Start: 10-18-2024 Hemolytic complement CH50 level [facility] Start: 10-18-2024 [facility] Start: 10-13-2024 [facility] Start: 09-29-2024 [facility] Start: 09-17-2024 Patient referral [facility] Work Phone: Start: 09-09-2024 End: 09-09-2024 Patient encounter procedure [facility] [address] [address] Comment on above: Arrived Start: 07-22-2024 End: 07-22-2024 Patient encounter procedure [facility] [address] Comment on above: Arrived Start: 06-17-2024 End: 06-17-2024 Patient encounter procedure [facility] [address] Comment on above: Arrived Start: 06-08-2024 [facility] Start: 06-08-2024 Physical therapy procedure [facility] Start: 06-08-2024 Referral to occupati onal therapist [facility] Start: 06-07-2024 End: 06-07-2024 [facility] Start: 06-06-2024 Hospital admission [facility] Start: 06-06-2024 [facility] Start: 06-02-2024 Bacteria identified in Urine by Culture [facility] Start: 05-20-2024 Hepatic function panel [facility] Start: 05-20-2024 [facility] Start: 03-07-2024 DIABETES SCREEN DIABETES SCREEN [facility] Start: 02-29-2024 Telemedicine consultation with patient [facility] Start: 02-04-2024 [facility] Start: 12-24-2023 Computed tomography of abdomen and pelvis with contrast CT abdomen pelvis w con [facility] Start: 12-24-2023 CT Abdomen and Pelvi s W contrast IV [facility] Start: 12-24-2023 CT of chest [facility] Start: 11-26-2023 [facility] Start: 11-05-2023 [facility] Start: 10-08-2023 [facility] Start: 09-03-2023 [facility] Start: 08-20-2023 [facility] Start: 05-23-2023 Influenza vaccination INFLUENZA (Sea son Ended) [facility] Start: 04-29-2023 Bacteria identified in Urine by Culture Urine Culture [facility] Start: 04-17-2023 [facility] Start: 04-16-2023 Hospital admission [facility] Start: 04-16-2023 Referral to neurologist [facility] Start: 03-07-2023 [facility] Start: 03-05-2023 [facility] Start: 03-04-2023 Hospital admission [facility] Start: 03-04-2023 Referral to neurologist [facility] Start: 02-17-2023 [facility] Start: 02-15-2023 [facility] Start: 02-15-2023 Hospital admission [facility] Start: 02-15-2023 Referral to neurologist [facility] Start: 01-27-2023 Blood chemistry [facility] Start: 01-27-2023 End: 01-27-2023 [facility] Start: 01-26-2023 Physical therapy procedure [facility] Start: 01-26-2023 Referral to occupati onal therapist [facility] Start: 01-26-2023 Hospital admission [facility] Start: 01-26-2023 MRI of head MR head/brain wo con [facility] Start: 01-26-2023 Referral to neurologist [facility] Start: 01-26-2023 [facility] Start: 01-26-2023 CT angiography of head [facility] Start: 01-26-2023 CT angiography of ne ck vessels [facility] Start: 01-26-2023 CT Head WO contrast [facility] Start: 01-26-2023 CT of head without contrast CT head stroke alert wo con [facility] Start: 01-08-2023 [facility] Start: 12-30-2022 CT Abdomen and Pelvi s WO contrast [facility] Start: 12-30-2022 CT of abdomen and pe lvis without contrast CT abdomen pelvis wo con [facility] Start: 12-30-2022 Bacteria identified in Urine by Culture [facility] Start: 12-18-2022 [facility] Start: 12-04-2022 [facility] Start: 09-22-2022 DEPRESSION ASSESSMENT DEPRESSION ASS ESSMENT [facility] Start: 2010 SHINGRIX VACCINE (1 of 2) SHINGRIX VACCINE (1 of 2) [facility] Start: 2005 COLOGUARD (FIT-DNA) COLOGUARD (FIT-D NA) [facility] Start: 2005 Colonoscopy COLONOSCOPY [facility] Start: 2005 COLORECTAL CANCER SCREENING COLORECTAL CANCER SCREENING [facility] Start: [address] COLONOGRAPHY [facility] Start: 2005 FECAL OCCULT BLOOD FECAL OCCULT BLOO D [facility] Start: 2005 LIPID SCREEN LIPID SCREEN [facility] Start: 2005 SIGMOIDOSCOPY SIGMOIDOSCOPY [facility] Start: 2000 Mammography MAMMOGRAM [facility] Start: 1990 HPV TESTING HPV TESTING [facility] Start: 1981 PAP TESTING PAP TESTING [facility] Start: 1979 Urine microalbumin profile DTAP,TDAP,TD (1 - Tdap) [facility] Start: 1978 HEPATITIS C SCREENING HEPATITIS C SC REENING [facility] Start: 1978 HIV SCREENING HIV SCREENING [facility] Start: 04-27-1961 COVID-19 VACCINE (#1) COVID-19 VACCI NE (#1) [facility] Albumin/Globulin ratio [facility] Anion gap measurement [facility] Anion gap measurement [facility] Basophils [#/volume] in Blood by Automated count [facility] Basophils [#/volume] in Blood by Automated count [facility] Basophils/100 leukoc ytes in Blood by Automated count [facility] Basophils/100 leukoc ytes in Blood by Automated count [facility] Bilirubin.indirect [Mass/volume] in Serum or Plasma [facility] Calculated LDL cholesterol level [facility] Cholesterol.total/Ch oles terol in HDL [Mass Ratio] in Serum or Plasma [facility] Complement C3 [Mass/volume] in Serum or Plasma [facility] Complement C4 [Mass/volume] in Serum or Plasma [facility] DXA Skeletal system.axial Views for bone density [facility] Eosinophils [#/volum e] in Blood [facility] Eosinophils/100 leukocytes in Blood by Automated count [facility] Eosinophils/100 leukocytes in Blood by Automated count [facility] Erythrocyte distribu tion width [Ratio] by Automated count [facility] Erythrocyte distribu tion width [Ratio] by Automated count [facility] Erythrocytes [#/volu me] in Blood [facility] Erythrocytes [#/volu me] in Blood [facility] Globulin [Mass/volum e] in Serum [facility] Glucose measurement estimated from glycated hemoglobin [facility] Hematocrit [Volume Fraction] of Blood [facility] Hematocrit [Volume Fraction] of Blood [facility] Hemoglobin [Mass/vol ume] in Blood [facility] Hemoglobin [Mass/vol ume] in Blood [facility] Hemoglobin A1c/Hemoglobin.total in Blood [facility] Homogenous nuclear A b pattern [Titer] in Serum [facility] Leukocytes [#/volume ] corrected for nucleated erythrocytes in Blood by Automated coun [facility] Leukocytes [#/volume ] corrected for nucleated erythrocytes in Blood by Automated coun [facility] Leukocytes [#/volume ] in Blood [facility] Leukocytes [#/volume ] in Blood [facility] Lymphocytes [#/volum e] in Blood by Automated count [facility] Lymphocytes [#/volum e] in Blood by Automated count [facility] Lymphocytes/100 leukocytes in Blood by Automated count [facility] Lymphocytes/100 leukocytes in Blood by Automated count [facility] MCH [Entitic mass] b y Automated count [facility] MCH [Entitic mass] b y Automated count [facility] MCHC [Mass/volume] b y Automated count [facility] MCHC [Mass/volume] b y Automated count [facility] MCV [Entitic volume] by Automated count [facility] MCV [Entitic volume] by Automated count [facility] Monocytes [#/volume] in Blood by Automated count [facility] Monocytes [#/volume] in Blood by Automated count [facility] Monocytes/100 leukoc ytes in Blood by Automated count [facility] Monocytes/100 leukoc ytes in Blood by Automated count [facility] Neutrophils [#/volum e] in Blood by Automated count [facility] Neutrophils [#/volum e] in Blood by Automated count [facility] Neutrophils/100 leukocytes in Blood by Automated count [facility] Neutrophils/100 leukocytes in Blood by Automated count [facility] Nuclear Ab [Titer] i n [facility] Nucleated erythrocyt es [Presence] in Blood by Automated count [facility] Nucleated erythrocyt es [Presence] in Blood by Automated count [facility] Patient Education [facility] Work Phone: Patient referral [facility] Work Phone: Platelet mean volume [Entitic volume] in Blood by Automated count [facility] Platelet mean volume [Entitic volume] in Blood by Automated count [facility] Platelets [#/volume] in Blood [facility] Platelets [#/volume] in Blood [facility] VLDL cholesterol measurement [facility] Payers Date Payer Category Payer Self-pay [id number] 2022 Managed Care HMO (unspecified) [id number] 2022 Medicare [id number]. [id number] 2022 Medicare (Managed Care) [employer] [id number] 2020 Unknown [id number] 2020 Unknown [facility] [id number] 2020-Present [phone] [address] [place] [address] PPO [id number]. [id number] 1960 Unknown [id number] 2.16.840.1.190772.3.579.2. 356 1960 Unknown [id number] 2.16.840.1.334911.3.579.2. 356 1960 Unknown [id number] 2.16.840.1.496590.3.579.2. 727 1960 Unknown [id number] 2.16.840.1.785436.3.579.2. 1259 1960 Unknown [id number] 2.16.840.1.497091.3.579.2. 1259 1960 Unknown [id number] 2.16.840.1.555963.3.579.2. 1259 1960 Unknown [id number] 2.16.840.1.585520.3.579.2. 1259 1960 Unknown [id number] 2.16.840.1.598651.3.579.2. 1259 1960 Unknown [id number] 2.16.840.1.025304.3.579.2. 1259 1960 Unknown [id number] 2.16.840.1.027277.3.579.2. 1259 1960 Unknown [id number] 2.16.840.1.344921.3.579.2. 1259 Unknown [id number] 2.16.840.1.986812.19 Unknown [facility] [id number] Unknown [id number] 2.16.840.1.312738.3.579.2. 531 Unknown [id number] 2.16.840.1.957928.3.579.2. 531 Unknown [id number] 2.16.840.1.141538.3.579.2. 531 Unknown [id number] 2.16.840.1.000967.3.579.2. 531 Unknown [id number] 2.16.840.1.185360.3.579.2. 531 Unknown [id number] 2.16.840.1.143629.3.579.2. 531 Unknown [id number] 2.16.840.1.773782.3.579.2. 531 Unknown [id number] 2.16.840.1.365100.3.579.2. 531 Unknown [id number] 2.16.840.1.723303.3.579.2. 531 Unknown [id number] 2.16.840.1.845169.3.579.2. 531 Unknown [id number] 2.16.840.1.316676.3.579.2. 531 Unknown [id number] 2.16.840.1.328192.3.579.2. 531 Unknown [id number] 2.16.840.1.247906.3.579.2. 531 Unknown [id number] 2.16.840.1.112052.3.579.2. 531 Unknown [id number] 2.16.840.1.245846.3.579.2. 531 Unknown [id number] 2.16.840.1.029862.3.579.2. 531 Social History Date Type Detail Facility Unknown if ever smoked [facility] Other Start: 06-17-2024 End: 09-09-2024 Sex Assigned At [facility] Other Start: 05-02-2022 End: 10-18-2024 Tobacco smoking status NHIS Never smoked tobacco (finding) [facility] Start: 1960 Sex Assigned At Female [facility] Start: 12-18-2017 End: 01-22-2024 Tobacco use and exposure Smokeless tobacco non-user [facility] Start: 03-07-2021 End: 03-13-2023 Alcohol intake Current non-drinker of alcohol (finding) [facility] Start: 1960 Sex Assigned At Not on file [facility] Start: 06-17-2024 End: 09-09-2024 Alcoholic beverage intake Lifetime non-drinker (finding) [facility] Start: 06-17-2024 End: 09-09-2024 History of Social function [facility] Start: 01-15-2024 Gender identity Identifies as female gender (finding) [facility] Start: 01-15-2024 Sexual orientation Heterosexual (finding) [facility] Start: 08-04-2024 End: 11-14-2024 Sex Female (finding) [facility] Goals Date Patient Goal Desired Activity /State Functional Status Date Assessment Result Facility 06-08-2024 Functional status Patient at Baseline [facility] Work Phone: 04-17-2023 Functional status Patient at Baseline [facility] Work Phone: 03-07-2023 Functional status Patient at Baseline [facility] Work Phone: 02-17-2023 Functional status Patient at Baseline [facility] Work Phone: 01-27-2023 Functional status Patient at Baseline [facility] Work Phone: Mental Status Date Assessment Result Facility 06-08-2024 Cognitive function Cognitive Sta tus Patient at Baseline [facility] Work Phone: 04-17-2023 Cognitive function Cognitive Sta tus Patient at Baseline [facility] Work Phone: 03-07-2023 Cognitive function Cognitive Sta tus Patient at Baseline [facility] Work Phone: 02-17-2023 Cognitive function Cognitive Sta tus Patient at Baseline [facility] Work Phone: 01-27-2023 Cognitive function Cognitive Sta tus Patient at Baseline [facility] Work Phone: Clinical Notes 02-20-2019 to 2024 Stveen Figueroa DO - 2024 10:00 AM ESTTelephone Encounter - Joan Ortega, GISELLE - 10/04/2024 12:23 PM ESTTelephone Encounter - Joan Ortega, GISELLE - 10/04/2024 12:23 PM EST Note Date & Type Note Facility 2024 History of Presen t illness Narrative Procedure - Therapeutic injection, Botulinum Toxin, Chronic Migraine Indication Chronic Migraine 64-year-old female with chronic migraines that have been refractory to treatment. She does meet criteria for chronic migraine as she has more than 10 headache days per month and more than 8 migraines. They last more than 4 hours and are worse with exertion. They have been refractory to other conservative treatments and Botox injections or medically necessary. She does respond well to Botox injections . They do wear off 3-4 weeks prior and are worse the 2 weeks prior to repeat injections. Overall she is doing well. She needs repeat injections today The patient was counseled on the physiology of botulinum toxin and the risks and benefits of the injections. This was reviewed with the patient and included but not limited to bleeding, infection, dysphagia or weakness of the muscles. All questions were answered and they agreed to proceed with Botox injections. Identification The patient was positively identified by name and date of . Consent The procedure with risks and benefits was explained to the patient. The risks included but were not limited to bleeding/bruising, weakness, ptosis, dysphagia, infection, and . Informed consent for the procedure was obtained and witnessed. All further questions were answered during this visit. Site Prep The areas to be injected were sterilized with 70% isopropanol alcohol. 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 Post-op care was discussed. The patient is aware that duration of action is ~ 90 days, and that delay in reinjection often results in recurrence of migraines Patient Instructions The patient was instructed to call or return for any excessive,weakness or any other unexpected symptoms. Assessment Chronic migraine without aura, intractable, without status migrainosus - G43.719 documented in this encounter [facility] 10-13-2024 Procedure note [facility] enter 10-04-2024 Telephone encount er Note 50mg due now. 100mg is not due until november. It was last filled for a 90 day supply on 08/28/24 [facility] 10-04-2024 Miscellaneous Notes Formattin g of this note might be different from the original. 50mg due now. 100mg is not due until november. It was last filled for a 90 day supply on 08/28/24 09/09/2024 Continue Lyrica 100 in the morning and 150 at night Oarrs reviewed Due now documented in this encounter [facility] 10-04-2024 Telephone encount er Note 09/09/2024 Continue Lyrica 100 in the morning and 150 at night Oarrs reviewed Due now [facility] 09-29-2024 Procedure note [facility] enter 09-07-2024 Evaluation note Diagnosis Onset Date Resolution Chronic pain acute August 9:43am Lumbosacral spondylosis acute D ecember 2023 9:43am Sacroiliitis acute August 9:43am Arthralgia acute September 13, 2024 3:09pm Diabetes mellitus acute 2023 3:09pm Rheumatoid arthritis acute 2024 9:22am Chronic pain acute September 2:08pm Lumbosacral spondylosis acute J anuary 2024 2:08pm Sacroiliitis acute September 2:08pm Trochanteric bursitis of left hip acute October 06 2:08pm Trochanteric bursitis of right hip acute October 06 2:08pm Chronic pain acute October 9:28am Lumbosacral spondylosis acute 2024 9:28am Sacroiliitis acute October 9:28am Trochanteric bursitis of left hip acute October 27 9:28am Trochanteric bursitis of right hip acute October 27 9:28am [facility] Work Phone: 1(448) 510-467112-17-2024 Evaluation note* Diagnosis Onset Date Resolution Status Admit Date Chronic pain acute August 9:43am Lumbosacral spondylosis acute D ecember 2023 9:43am Sacroiliitis acute August 9:43am Arthralgia acute September 13, 2024 3:09pm Diabetes mellitus acute 2023 3:09pm Rheumatoid arthritis acute 2024 9:22am Chronic pain acute September 2:08pm Lumbosacral spondylosis acute J anuary 2024 2:08pm Sacroiliitis acute September 2:08pm Trochanteric bursitis of lef t hip acute October 06 2:08pm Trochanteric bursitis of rig ht hip acute October 06 2:08pm Chronic pain acute October 9:28am Lumbosacral spondylosis acute F 2024 9:28am Sacroiliitis acute October 9:28am Trochanteric bursitis of lef t hip acute October 27 9:28am Trochanteric bursitis of rig ht hip acute October 27 9:28am Anxiety acute November 09, 2024 10:18am [facility] Work Phone: 1(772) 119-965311-18-2024 Evaluation note* Diagnosis Onset Date Resolution Status Admit Date HTN (hypertension) acute Novemb er 2023 8:22am Hyperlipidemia acute July 232023 8:22am Hypothyroid acute July 8:22am Lumbar spinal stenosis acute No vember 2023 8:22am Nausea acute August 09, 2024 8:22am Type 2 diabetes mellitus chronic August 09, 2024 8:22am Chronic pain acute August 9:43am Lumbosacral spondylosis acute D ecember 2023 9:43am Sacroiliitis acute August 9:43am Arthralgia acute September 13, 2024 3:09pm Diabetes mellitus acute 2023 3:09pm [facility] Work Phone: 1(154) 522-833611-18-2024 Evaluation note* Diagnosis Onset Date Resolution Status Admit Date HTN (hypertension) acute Novemb er 2023 8:22am Hyperlipidemia acute July 232023 8:22am Hypothyroid acute July 8:22am Lumbar spinal stenosis acute No vember 2023 8:22am Nausea acute August 09, 2024 8:22am Type 2 diabetes mellitus chronic August 09, 2024 8:22am Chronic pain acute August 9:43am Lumbosacral spondylosis acute D ec2023 9:43am Sacroiliitis acute August 9:43am Arthralgia acute September 13, 2024 3:09pm Diabetes mellitus acute 2023 3:09pm Rheumatoid arthritis acute 2024 9:22am [facility] Work Phone: 1(387) 248-369911-18-2024 Evaluation note* Diagnosis Onset Date Resolution Status Admit Date HTN (hypertension) acute Novemb er 2023 8:22am Hyperlipidemia acute July 232023 8:22am Hypothyroid acute July 8:22am Lumbar spinal stenosis acute No vember 2023 8:22am Nausea acute August 09, 2024 8:22am Type 2 diabetes mellitus chronic August 09, 2024 8:22am Chronic pain acute August 9:43am Lumbosacral spondylosis acute D ec2023 9:43am Sacroiliitis acute August 9:43am Arthralgia acute September 13, 2024 3:09pm Diabetes mellitus acute mb r 2023 3:09pm Rheumatoid arthritis acute Alo 2024 9:22am Chronic pain acute September 2:08pm Lumbosacral spondylosis acute J anuary 2024 2:08pm Sacroiliitis acute September 2:08pm Trochanteric bursitis of lef t hip acute October 06 2:08pm Trochanteric bursitis of rig ht hip acute October 06 2:08pm [facility] Work Phone: 1(577) 150-788111-18-2024 Evaluation note* Diagnosis Onset Date Resolution Status Admit Date HTN (hypertension) acute Novemb er 2023 8:22am Hyperlipidemia acute July 232023 8:22am Hypothyroid acute July 8:22am Lumbar spinal stenosis acute No vember 2023 8:22am Nausea acute August 09, 2024 8:22am Type 2 diabetes mellitus chronic August 09, 2024 8:22am Chronic pain acute August 9:43am Lumbosacral spondylosis acute D ecember 2023 9:43am Sacroiliitis acute August 9:43am Arthralgia acute September 13, 2024 3:09pm Diabetes mellitus acute mb r 2023 3:09pm Rheumatoid arthritis acute 2024 9:22am Chronic pain acute September 2:08pm Lumbosacral spondylosis acute J anuary 2024 2:08pm Sacroiliitis acute September 2:08pm Trochanteric bursitis of lef t hip acute October 06 2:08pm Trochanteric bursitis of rig ht hip acute October 06 2:08pm Chronic pain acute October 9:28am Lumbosacral spondylosis acute F ebruary 2024 9:28am Sacroiliitis acute October 9:28am Trochanteric bursitis of lef t hip acute October 27 9:28am Trochanteric bursitis of rig ht hip acute October 27 9:28am [facility] Work Phone: 1(143) 707-684111-13-2024 NotePatient Education Urology Kidney Stones Kidney stones are rock-like masses that form inside of the kidneys. Kidneys are organs that make pee (urine). A kidney stone may move into other parts of the urinary tract, including: ??? The tubes that connect the kidneys to the bladder (ureters). ??? The bladder. ??? The tube that carries urine out of the body (urethra). Kidney stones can cause very bad pain and can block the flow of pee. The stone usually leaves your body through your pee. A doctor may need to take out the stone. What are the causes? Kidney stones may be caused by: ??? Too much calcium in the body. This may be caused by too much parathyroid hormone in the blood. ??? Uric acid crystals in the bladder. The body makes uric acid when you eat certain foods. ??? Narrowing of one or both of the ureters. ??? A kidney blockage that you were born with. ??? Past surgery on the kidney or the ureters. What increases the risk? You are more likely to develop this condition if: ??? You have had a kidney stone in the past. ??? Other people in your family have had kidney stones. ??? You do not drink enough water. ??? You eat a diet that is high in protein, salt (sodium), or sugar. ??? You are very overweight (obese). What are the signs or symptoms? Symptoms of a kidney stone may include: ??? Pain in the side of the belly, right below the ribs. Pain usually spreads to the groin. ??? Needing to pee often or right away. ??? Pain when peeing. ??? Blood in your pee. ??? Feeling like you may vomit (nauseous). ??? Vomiting. ??? Fever and chills. How is this treated? Treatment depends on the size, location, and makeup of the kidney stones. The stones will often pass out of the body when you pee. You may need to: ??? Drink more fluid to help pass the stone. ? In some cases, you may be given fluids through an IV tube at the hospital. ??? Take medicine for pain. ??? Change your diet to help keep kidney stones from coming back. Sometimes, you may need: ??? A procedure to break up kidney stones using a beam of light (laser) or shock waves. ??? Surgery to remove the kidney stones. Follow these instructions at home: Medicines ??? Take laxg-rwt-dyjllub and prescription medicines only as told by your doctor. ??? Ask your doctor if the medicine prescribed to you requires you to avoid driving or using machinery. Eating and drinking ??? Drink enough fluid to keep your pee pale yellow. ? You may be told to drink at least 8?10 glasses of water each day. This will help you pass the stone. ??? If told by your doctor, change your diet. You may be told to: ? Limit how much salt you eat. ? Eat more fruits and vegetables. ? Limit how much meat, poultry, fish, and eggs you eat. ??? Follow instructions from your doctor about what you may eat and drink. General instructions ??? Collect pee samples as told by your doctor. You may need to collect a pee sample: ? 24 hours after a stone comes out. ? 8?12 weeks after a stone comes out, and every 6?12 months after that. ??? Strain your pee every time you pee. Use the strainer that your doctor recommends. ??? Do not throw out the stone. Keep it so that it can be tested by your doctor. ??? Keep all follow-up visits. You may need X-rays and ultrasounds to make sure the stone has come out. How is this prevented? To prevent another kidney stone: ??? Drink enough fluid to keep your pee pale yellow. This is the best way to prevent kidney stones. ??? Eat healthy foods. ??? Avoid certain foods as told by your doctor. You may be told to eat less protein. ??? Stay at a healthy weight. Where to find more information ??? National Kidney Foundation (NKF): kidney.org ??? [employer] (UCF): urologyhealth.org Contact a doctor if: ??? You have pain that gets worse or does not get better with medicine. Get help right away if: ??? You have a fever or chills. ??? You get very bad pain. ??? You get new pain in your belly. ??? You faint. ??? You cannot pee. This information is not intended to replace advice given to you by your health care provider. Make sure you discuss any questions you have with your health care provider. Document Revised: 05/02/2023 Document Reviewed: 05/02/2023 [employer] Patient Education ? 2023 [employer] 08-03-2024 Radiology Diagnostic study [facility] [place] [address] [place] [address] Ultrasound Report Signed Patient: Jennifer Rothman MR#: [id number] : 1960 Acct:[id number] Age/Sex: 63 / F ADM Date: 4 Loc: Room: Type: [facility] Attending Dr: Keke GORDON Ordering Provider: HEIDI Cochran Date of Service: 08/03/24 US/US renal BI: N20.0 Copies to: HEIDI Cochran~ Bilateral Renal Ultrasound HISTORY: History kidney stones. COMPARISON: CT abdomen pelvis on 06/07/24 RIGHT kidney measures 10.4 cm. LEFT kidney measures 9.8 cm. Hydronephrosis: None RENAL STONE: 2 mm echogenic focus of the LEFT kidney. Consider small nonobstructing renal calculus. RENAL LESIONS: No renal lesion identified. URINARY BLADDER: Bilateral ureteral jets identified. The minimal post for residual urinary bladder. REPRODUCTIVE STRUCTURES Not assessed US/US renal BI IMPRESSION : No hydronephrosis. Punctate LEFT nephrolithiasis. Impression dictated by: Aron Cross M.D.08/03/2024 3:59 PM Dictation Location: [place] [address] Tech: Quiana Menezes Transcribed By: FELECIA 08/03/241558 Dictated By: Aron Cross DO 08/03/246 Signed By: 08/03/24 1559 [facility]11-04-2024 Telephone encounter Note* Telephone Encounter - Rachel Schwab LPN - 07/26/2024 1:39 PM EST I spoke to patient she will try the anaprox. She states that she is on qulipta for preventative, she was taken off the depakote and elavil due to side effects. [facility] [id number] Miscellaneous Notes* Telephone Encounter - Rachel Schwab LPN - 07/26/2024 1:39 PM EST I spoke to patient she will try the anaprox. She states that she is on qulipta for preventative, she was taken off the depakote and elavil due to side effects. * Telephone Encounter - Steven Figueroa DO - 07/26/2024 12:39 PM EST Can get one after, Also the weather has changed and that can trigger one. Would prefer not to give her steroid with her DM Is she able to take NSAIDs? Can do Anaprox DS 1 a day with food for 10 days if able. Looks like she is also off of her Elavil and depakote. When did she go off? She could have a worsening from being off of those meds. * Telephone Encounter - Kulwinder Johnson MA - 07/26/2024 12:07 PM EST Patient states that after her BOTOX injections he developed a migraine. Has lasted since last week. Has tried nurtec and ubrelvy and nothing seems to be offering her relief. Wants to know ifthis is normal from the botox and what she can do if this does not go away. Please advise. documented in this encounterSt. [facility] [id number] Telephone encounter Note* Telephone Encounter - Steven Figueroa DO - 07/26/2024 12:39 PM EST Can get one after, Also the weather has changed and that can trigger one. Would prefer not to give her steroid with her DM Is she able to take NSAIDs? Can do Anaprox DS 1 a day with food for 10 days if able. Looks like she is also off of her Elavil and depakote. When did she go off? She could have a worsening from being off of those meds. [facility] [id number] Telephone encounter Note* Telephone Encounter - Kulwinder Johnson MA - 07/26/2024 12:07 PM EST Patient states that after her BOTOX injections he developed a migraine. Has lasted since last week. Has tried nurtec and ubrelvy and nothing seems to be offering her relief. Wants to know ifthis is normal from the botox and what she can do if this does not go away. Please advise. [facility] [id number] History of Present illness Narrative* Steven Figueroa DO - 07/22/2024 9:15 AM EDT Procedure - Therapeutic injection, Botulinum Toxin, Chronic Migraine Indication Chronic Migraine 63-year-old female with chronic migraines that have been refractory to treatment. She does meet criteria for chronic migraine as she has more than 10 headache days per month and more than 8 migraines. They last more than 4 hours and are worse with exertion. They have been refractory to other conservative treatments and Botox injections or medically necessary. She does respond well to Botox injections . They do wear off 3-4 weeks prior and are worse the 2 weeks prior to repeat injections. She isvery sensitive today with the injections. She needs repeat injections today The patient was counseled on the physiology of botulinum toxin and the risks and benefits of the injections. This was reviewed with the patient and included but not limited to bleeding, infection, dysphagia or weakness of the muscles. All questions were answered and they agreed to proceed with Botox injections. Identification The patient was positively identified by name and date of . Consent The procedure with risks and benefits was explained to the patient. The risks included but were notlimited to bleeding/bruising, weakness, ptosis, dysphagia, infection, and . Informed consent for the procedure was obtained and witnessed. All further questions were answered during this visit. Site Prep The areas to be injected were sterilized with 70% isopropanol alcohol. Lot # [id number] Exp: 10/2026 Dilution: 1:1 Procedure Procerus 10 units Electron Beam Welding Machine Operator, L 5 units Electron Beam Welding Machine Operator, R 5 units Frontalis, L 5+5 units Frontalis, R 5+5 units Temporalis, L 10+5+5+5 units Temporalis, R 10+5+5+5 units Occipitalis, L 5+5+10 units Occipitalis, R 5+5+10 units Paraspinalis cervicis, L 5+10 units Paraspinalis cervicis, R 5+10 units Trapezius, L 5+10+5 units Trapezius, L 5+10+5 units Other TOTAL UNITS INJECTED 200 WASTED 0 Disposition The patient tolerated the procedure well. Post-op care was discussed. The patient is aware that duration of action is ~ 90 days, and that delay in reinjection often results in recurrence of migraines Patient Instructions The patient was instructed to call or return for any excessive,weakness or any other unexpected symptoms. Assessment Chronic migraine without aura, intractable, without status migrainosus - G43.719 documented in this encounterSt. Joseph Medical [id number] History of Present illness Narrative* Capri Srivastava NP - 07/06/2024 2:45 PM EDT HPI: Historian of HPI: patient Jennifer Rothman is a 63 y.o. female who presents today to the Urgent Care with the following complaints and denials which have been present for 2 week(s) C/O Denies Symptom Comments [x] [] Runny Nose [] [x] Difficulty Swallowing [] [x] Sore Throat [x] [] Cough Mild dry cough [] [x] Ear Pain [] [x] Fever [x] [] Chills [] [x] Nasal Congestion [x] [] Myalgia [x] [] Sinus Pain SIMEON [] [] Sinus Pressure Additional Comments: Tylenol, Motrin, Sudafed OTC with mild relief Pt was in [facility] ! Month ago for 2 days Pt admits to Nausea and body aches from head to Toe. ROS: A complete system ROS was performed and negative aside from the pertinent positives noted in the HPI and PE. IH Testing: Examination General Examination: General Examination: alert, oriented, normal affect, well appearing, in no acute distress, well developed, well nourished Head: normocephalic, atraumatic Eyes: sclera non-icteric Ears: Left TM intact, opaque, bulging, auditory canal non-inflamed. Right TM with perforation (appears chronic), TM opaqe. No drainage. Auditory canal non-inflamed. Nose: congested, frontal tenderness Oral Cavity: mucosa moist, no lesions Throat: PND noted Neck/Thyroid: trachea midline Lymph Nodes: no cervical adenopathy Heart: no murmurs, regular rate and rhythm, S1, S2 normal Lungs: clear to auscultation bilaterally Extremities: no edema, no cyanosis Neurologic: alert and oriented Psych: alert, oriented, cognitive function intact, cooperative with exam 1. Acute rhinosinusitis (Primary) Diagnosis and treatment discussed with patient. Immediate eval if new, worsening sx otherwise f/u with PCP if sx not resolved in 7 days, sooner if not improving over next 3-4 days. To ED for trouble swallowing secretions, shortness of breath, or other red flag symptoms. Advised Pt on supportive therapies, including using a vaporizer/humidifer/steam from hot showers, lots of fluids as tolerated, rest, avoidance of second-hand smoke, frequent hand-washing w/ soap and water, and OTC acetaminophen or ibuprofen as directed prn for pain control - amoxicillin-clavulanate (Augmentin) 875-125 MG tablet; Take 1 tablet (875 mg) by mouth in the morning and 1 tablet (875 mg) before bedtime. Do all this for 10 days. Dispense: 20 tablet; Refill: 0 2. Nausea Likely secondary to sinus and ear pressure and PND. See above. - ondansetron ODT (Zofran-ODT) 8 MG disintegrating tablet; Take 1 tablet (8 mg) by mouth every 12 (twelve) hours if needed for nausea or vomiting for up to 10 days Dispense: 20 tablet; Refill: 0 documented in this [facility]10-01-2024 Telephone encounter Note* Telephone Encounter - Conchis Starks NP - 06/22/2024 4:43 PM EDT Alec pozo. BD looking into Qulipta issues. [facility] [id number] Miscellaneous Notes* Telephone Encounter - Conchis Starks NP - 06/22/2024 4:43 PM EDT Alec pozo. BD looking into Qulipta issues. * Telephone Encounter - Kulwinder Johnson MA - 06/22/2024 2:47 PM EDT Pt request refill. States that pharmacy is also having a hard time getting in Qulipta and will be contacting us for another option. documented in this [facility]10-01-2024 Telephone encounter Note* Telephone Encounter - Kulwinder Johnson MA - 06/22/2024 2:47 PM EDT Pt request refill. States that pharmacy is also having a hard time getting in Qulipta and will be contacting us for another option. [facility] [id number] Progress note Author Iglesia Mccray [facility] June 07, 2024 1:01pm Note Date/Time June 07, 2024 1:02pm [facility] [address] [place] [address] Hospitalist Progress Note Signed Patient: Minor,Jennifer Ramirez MR#: [id number] : 1960 Acct:[id number] Age/Sex: 63 / F Adm Date: 4 Loc: 3T Room: [address] [place] [address] Type: ADM INOo Attending Dr: Iglesia Mccray MD Copies to: ~ Date of Service: 06/07/2024 Subjective Subjective Narrative: Patient is resting in bed. She is nauseated, complaining abdominal discomfort. On examination she has tenderness without rebound rigidity in the left lower quadrant. She had diarrhea. Heart is regular Lungs are clear Neurological nonfocal Assessment and plan: #1 suspect acute diverticulitis. Ordered CT scan abdomen pelvis with oral and IV contrast Stool sample for infectious workup Chronic problems Obesity class III BMI 41 Cerebrovascular disease history of TIA and stroke Alopecia Nicol thyroiditis Dyslipidemia Nephrolithiasis Hypertension Hypothyroid Cluster headaches Conversion disorder Anxiety Blind left eye Exam Physical Exam Vital Signs: Temp Pulse Resp BP Pulse Ox O2 Del Method 97.8 F 83 18 130/75 96 Room Air 06/07/24 12:00 06/07/24 12:00 06/07/24 12:00 06/07/24 12:00 06/07/24 12:00 06/07/24 12:00 Objective Lab Results 06/07/24 06:15 06/07/24 06:15 Microbiology Results Microbiology 06/06/24 15:04 Nasopharyngeal Respiratory Panel (PCR) - Final Meds Allergies and Active Meds Allergies Kcukvvr-PLM-HuQ Reductase Inhibitor Adverse Reaction (Mild, Verified 06/06/24 14:36) Unknown Reaction Active Meds: Active Medications Generic Name Dose Route Start Last Admin Trade Name Freq PRN Reason Stop Dose Admin Aspirin 81 mg 06/07/24 09:00 06/07/24 08:45 Aspirin 81 Mg Tablet. PO 06/07/25 08:59 81 mg DAILY MARY Administration Clobetasol Propionate 1 applic 09/15/24 20:26 Clobetasol Prop 0.05% Cream 30 Gm Tube TOPICAL 06/06/25 20:25 DAILY PRN eczema Clopidogrel Bisulfate 75 mg 06/07/24 09:00 06/07/24 08:46 Clopidogrel Bisulfate 75 Mg Tablet PO 06/07/25 08:59 75 mg DAILY MARY Administration Levothyroxine Sodium 75 mcg 06/07/24 06:30 06/07/24 05:53 Levothyroxine 75 Mcg Tablet PO 06/07/25 06:29 75 mcg DAILY@0630 MARY Administration Lisinopril 10 mg 06/07/24 09:00 06/07/24 08:45 Lisinopril 10 Mg Tablet PO 06/07/25 08:59 10 mg DAILY MARY Administration Magnesium Oxide 400 mg 06/07/24 12:00 06/07/24 11:28 Magnesium Oxide 400 Mg Tablet PO 06/07/25 11:59 400 mg DAILY.WITH.LUNCH MARY Administration Melatonin 10 mg 06/06/24 22:00 06/06/24 23:33 Melatonin 5 Mg Tablet PO 06/06/25 21:59 10 mg QHS MARY Administration Metformin HCl 1,000 mg 06/06/24 21:00 06/07/24 08:46 Metformin 500 Mg Tablet PO 06/06/25 20:59 1,000 mg BID MARY Administration Niacin 1,000 mg 06/06/24 21:00 06/07/24 08:46 Niacin Er.24hr 500 Mg Tab.Er.24h PO 06/06/25 20:59 1,000 mg BID MARY Administration Emollient 1 applic 06/06/24 19:50 Combination No.101 [ TOPICAL 06/06/25 19:49 Ceramax] Cream DAILY PRN eczema Rimegepant [Nurtec 75 mg 06/06/24 19:50 Odt] 75 Mg Tablet, PO 06/06/25 19:49 Disintegrating DAILY PRN Migraine Headache Ondansetron HCl 4 mg 06/06/24 23:54 Ondansetron 4 Mg/2 Ml Vial IV-PUSH 06/06/25 23:53 Q6H PRN Nausea And Vomiting Oxycodone/Acetaminophen 1 tab 06/06/24 23:54 06/07/24 11:59 Oxycodone/Acetaminophen 5-325 Mg Tablet PO 1 tab Q6H PRN Administration Pain Pregabalin 150 mg 06/06/24 19:50 06/06/24 23:33 Pregabalin 150 Mg Capsule PO 12/03/24 21:59 150 mg QHS PRN Administration insomnia, pain Sodium Chloride 0 ml 06/06/24 14:35 06/06/24 16:42 Sodium Chloride 0.9 % 10 Ml Syringe IV-PUSH 06/06/25 14:34 10 ml PRN PRN Administration Flush A&P - Hospitalist Assessment/Plan (1) Near syncope: Plan as above Documented By: Iglesia Mccray MD 06/07/24 1259 Signed By: <Electronically signed by Iglesia Mccray MD> 06/07/24 [address] [facility] Work Phone: 1(398) 732-604609-15-2024 History and physical note Author Andres Holden [facility] June 06, 2024 8:14pm Note Date/Time June 06, 2024 8:14pm [facility] [address] [place] [address] Hospitalist H&P Signed Patient: Jennifer Rothman MR#: [id number] : 1960 Acct:[id number] Age/Sex: 63 / F Adm Date: 4 Loc: ER Room: Type: [facility] ER Attending Dr: Copies to: HANY Aponte DO~ HPI DATE OF EXAMINATION: 06/06/24 CHIEF COMPLAINT: Weakness HISTORY OF PRESENT ILLNESS: This patient is a 63-year-old female presented to the emergency department earlier this week and again today for refractory weakness. She also endorsed ongoing near syncopal symptoms today. She is described generalized malaise, some vomiting and intermittent diarrhea, sore throat and runny nose over the past few days. Emergency department she exhibited focal deficits but was unableto get out of bed and stand up. Her workup revealed unremarkable labs and chemistries/coagulation studies, viral studies receivable cause of her weakness was elucidated. Given her near syncope and vague complaints she was brought in under observation and further evaluation. Physical Examination: GENERAL APPEARANCE: Alert, lying in bed, ill-appearing, mildly pale HEENT: NCAT, mildly dry mucous membrane CARDIAC: Normal S1 and S2. No S3, S4 or murmurs. LUNGS: Clear to auscultation bilaterally. no wheeze/rhonchi/rales ABDOMEN: Positive bowel sounds. Soft, nontender. No guarding or signs of an acute abdomen MUSCULOSKELETAL: No joint erythema or tenderness. EXTREMITIES: No clubbing, cyanosis or edema PSYCHIATRIC: Appropriate mood and affect Assessment and plan: 1. Lumbar syncope 2. Suspected viral syndrome 3. Nausea and vomiting 4. Diarrheal illness 5. Rhinorrhea 6. Hypertension 7. Hypothyroidism 8. Migraines 9. Lymphopenia Patient vague complaints that are nonspecific many which are consistent with a viral illness. She has progressive nature of symptoms and comes to the ER for second time. She was provided IV fluids and still appears mildly dehydrated. Her initial thyroid studies are relatively benign but will also check a free T3 active hormone to assess thyroid dysfunction. Will check vitamin D, B12, folateand iron studies to further evaluate her generalized complaints. Check orthostatic vital signs. Her echocardiogram last March 2023 showed mild diastolic dysfunction and she has no signs of volume overload presently. Patient did test negative for COVID-19 but does now show lymphopenia a hallmark of COVID-19 and can consider retesting this if viral symptoms continue to raise any suspicion. Consult PT/OT. Will check orthostatic vital signs. [facility] Medical History TIA (transient ischemic attack) Lumbar radiculopathy Hyperlipidemia Diabetes mellitus Sacroiliitis Piriformis syndrome of left side Paresthesias Obesity Neuropathy Nephrolithiasis Migraine, unspecified, not intractable, without status migrainosus Lumbosacral spondylosis Left maxillary sinusitis Nicol's thyroiditis Cluster headache syndrome Chronic pain Asymmetrical breasts Ambulatory dysfunction Alopecia universalis Adjustment disorder with depressed mood Abnormal mammogram History of nephrolithotomy with removal of calculi Chronic back pain Lacunar stroke Blind left eye HTN (hypertension) Pyelonephritis Diabetes mellitus Autoimmune disease Conversion disorder Anxiety disorder Surgical History History of repair of rotator cuff Previous section H/O hernia repair History of ureteroscopy History of ear surgery History of bilateral carpal tunnel release Hx of cholecystectomy Family History Father Heart valve replaced Prostate CA Diabetes Type 2 diabetes mellitus Mother High cholesterol Dementia Hypertension Aunt/Uncle Cancer Legacy FamHx Relation: Paternal aunt; Legacy FamHx Problem: Diagnosed with Cancer Aunt/Uncle Legacy FamHx Relation: Paternal uncle Grandparent Legacy FamHx Relation: Maternal Grand Father Grandparent Legacy FamHx Relation: Maternal Grand Mother Grandparent Legacy FamHx Relation: Paternal Grand Father Grandparent Legacy FamHx Relation: Paternal Grand Mother Social History Smoking Status: Never smoker Substance Use Type: None Meds Medications and Allergies Allergies Tksorpf-LRH-JnN Reductase Inhibitor Adverse Reaction (Mild, Verified 06/06/24 14:36) Unknown Reaction Home Medications clopidogrel 75 mg tablet (Plavix) 75 mg PO DAILY hx tia 11/02/17 [History Confirmed 06/06/24] pregabalin 100 mg capsule (Lyrica) 100 mg PO QAM 12/21/21 [History Confirmed 06/06/24] pregabalin 50 mg capsule (Lyrica) 150 mg PO QHS 12/21/21 [History Confirmed 06/06/24] aspirin 81 mg capsule 81 mg PO DAILY #90 caps 01/27/23 [Rx Confirmed 06/06/24] rimegepant 75 mg disintegrating tablet (Nurtec ODT) 75 mg PO DAILY PRN Migraine Headache 04/16/23 [History Confirmed 06/06/24] melatonin 10 mg tablet 10 mg PO HS PRN Insomnia 08/20/23 [History Confirmed 06/06/24] lasmiditan 50 mg tablet (Reyvow) 100 mg PO DAILY PRN headaches 11/05/23 [History Confirmed 06/06/24] atogepant 60 mg tablet (Qulipta) 60 mg PO DAILY 11/13/23 [History Confirmed 06/06/24] magnesium oxide 500 mg PO DAILY 11/13/23 [History Confirmed 06/06/24] clobetasol 0.05 % topical ointment 1 applic topical DAILY PRN eczema 11/27/23 [History Confirmed 06/06/24] emollient combination no.101 (Ceramax topical cream) 1 applic topical DAILY PRN eczema 11/27/23 [History Confirmed 06/06/24] lisinopril 10 mg tablet See Rx Instructions .Route .COMPLEX #90 tabs 02/02/24 [Rx Confirmed 06/06/24] niacin 500 mg tablet,extended release 24 hr 1,000 mg PO BID 04/05/24 [History Confirmed 06/06/24] semaglutide 2 mg/dose (8 mg/3 mL) subcutaneous pen injector 2 mg (0.75 mL) subcut QWEEK #3 mL 04/05/24 [Rx Confirmed 06/06/24] levothyroxine 75 mcg tablet See Rx Instructions .Route .COMPLEX #90 tabs 05/31/24 [Rx Confirmed 06/06/24] metformin 1,000 mg tablet 1,000 mg PO BID 06/02/24 [History Confirmed 06/06/24] tizanidine 4 mg tablet 2 mg PO BID 06/02/24 [History Confirmed 06/06/24] Exam Physical Exam Vital Signs: Temp Pulse Resp BP Pulse Ox O2 Del Method 97.9 F 59 L 18 154/72 H 98 Room Air 06/06/24 14:51 06/06/24 19:02 06/06/24 19:02 06/06/24 19:02 06/06/24 19:02 06/06/24 19:02 Results - Hospitalist H&P Lab Results Labs: Laboratory Last Values Corrected WBC 5.8 X10E3/uL (3.8-11.6) 06/06/24 15:11 Uncorrected WBC Count 5.8 x10E3/uL (3.8-11.6) 06/06/24 15:11 RBC 4.58 X10E6/uL (3.60-5.00) 06/06/24 15:11 Hgb 13.2 g/dL (11.8-15.4) 06/06/24 15:11 Hct 40.7 % (34.0-46.4) 06/06/24 15:11 MCV 88.8 fl (80-100) 06/06/24 15:11 MCH 28.8 pg (24.7-34.3) 06/06/24 15:11 MCHC 32.4 g/dL (32.0-35.0) 06/06/24 15:11 RDW 14.4 % (11.9-15.3) 06/06/24 15:11 Plt Count 199 x10E3/uL (150-450) 06/06/24 15:11 MPV 8.9 fl (6.3-10.7) 06/06/24 15:11 Neut % (Auto) 74.5 % (.) 06/06/24 15:11 Lymph % (Auto) 13.7 % (.) 06/06/24 15:11 Bledsoe % (Auto) 8.7 % (.) 06/06/24 15:11 Eos % (Auto) 2.2 % (.) 06/06/24 15:11 Baso % (Auto) 0.9 % (.) 06/06/24 15:11 Nucleat RBC Rel Count 0.0 /100 WBC (0-0.5) 06/06/24 15:11 Neut # (Auto) 4.4 x10E3/uL (1.8-7.7) 06/06/24 15:11 Lymph # (Auto) 0.8 x10E3/uL (1.00-4.8) L 06/06/24 15:11 Bledsoe # (Auto) 0.5 x10E3/uL (0.0-0.8) 06/06/24 15:11 Eos # (Auto) 0.1 x10E3/uL (0.0-0.45) 06/06/24 15:11 Baso # (Auto) 0.1 x10E3/uL (0.0-0.2) 06/06/24 15:11 Monocyte Dist Width 17.00 % (0.00-20.00) 06/06/24 15:11 PT 12.1 Seconds (9.0-12.9) 06/06/24 15:11 INR 1.0 06/06/24 15:11 APTT 26.7 Seconds (25.1-36.5) 06/06/24 15:11 PHA Creatinine Clear 79.93 06/06/24 15:11 Sodium 138 mmol/L (136-145) 06/06/24 15:11 Potassium 3.7 mmol/L (3.5-5.1) 06/06/24 15:11 Chloride 106 mmol/L (98-107) 06/06/24 15:11 Carbon Dioxide 25.1 mmol/L (21.0-31.0) 06/06/24 15:11 Anion Gap 10.6 mEq/L (6.0-15.0) 06/06/24 15:11 BUN 8 mg/dL (7-25) 06/06/24 15:11 Creatinine 0.89 mg/dL (0.60-1.20) 06/06/24 15:11 Est GFR (CKD-EPI) > 60.0 mL/Min 06/06/24 15:11 Glucose 161 mg/dL (70-100) H 06/06/24 15:11 POC Glucose 153 mg/dl 06/06/24 15:05 Calcium 8.6 mg/dL (8.6-10.3) 06/06/24 15:11 Magnesium 2.0 mg/dL (1.9-2.7) 06/06/24 15:11 Total Bilirubin 0.6 mg/dl (0.3-1.0) 06/06/24 15:11 AST 22 U/L (13-39) 06/06/24 15:11 ALT 17 U/L (7-52) 06/06/24 15:11 Alkaline Phosphatase 72 U/L (34-104) 06/06/24 15:11 Total Creatine Kinase 93 U/L (30-223) 06/06/24 15:11 Troponin I High Sens 3.3 pg/mL (0.0-15.0) 06/06/24 17:47 Total Protein 6.0 gm/dL (6.4-8.9) L 06/06/24 15:11 Albumin 3.9 gm/dL (3.5-5.7) 06/06/24 15:11 Globulin 2.1 gm/dL 06/06/24 15:11 Albumin/Globulin Ratio 1.9 06/06/24 15:11 Free T4 1.02 ng/dL (0.61-1.12) 06/06/24 15:11 TSH 3rd Generation 1.46 uIU/mL (0.45-5.33) 06/06/24 15:11 Urine Color Colorless (Yellow) 06/06/24 18:06 Urine Appearance Clear (Clear) 06/06/24 18:06 Urine pH 6.5 (5.0-9.0) 06/06/24 18:06 Ur Specific Lefor 1.006 (1.001-1.030) 06/06/24 18:06 Urine Protein Negative mg/dL (Negative) 06/06/24 18:06 Urine Glucose (UA) Normal mg/dL (Normal) 06/06/24 18:06 Urine Ketones Negative (Negative) 06/06/24 18:06 Urine Occult Blood Negative (Negative) 06/06/24 18:06 Urine Nitrite Negative (Negative) 06/06/24 18:06 Urine Bilirubin Negative (Negative) 06/06/24 18:06 Urine Urobilinogen Normal mg/dL (Normal) 06/06/24 18:06 Ur Leukocyte Esterase Negative (Negative) 06/06/24 18:06 COVID-19 Clin Com Not detected (Not Detecte) 06/06/24 15:04 Microbiology Results Micro: Microbiology - Results from entire visit 06/06/24 15:04 Nasopharyngeal Respiratory Panel (PCR) - Final Assessment & Plan Assessment/Plan (1) Near syncope: Plan as above IP vs OBS Justification Based on differential dx, clinical care plan, and risk of adverse events, if untreated, in my clinical judgement this patient requires an acute care setting as: OBSERVATION because of an expectation of an under 2 midnight stay. Estimated length of stay (# of days): 2 Documented By: Andres Holden DO 06/06/24 20 07 Signed By: <Electronically signed by Andres Holden DO> 06/06/242013 [facility] Work Phone: 1(692) 134-629709-15-2024 Evaluation note* Diagnosis Onset Date Resolution Status Admit Date Near syncope resolved June 062023 7:08pm Unable to ambulate resolved 2023 7:08pm Hospital discharge follow-up acute June 14, 2024 4:15pm Nausea acute May 4:15pm [facility] Work Phone: 1(338) 215-625609-15-2024 Evaluation note* Diagnosis Onset Date Resolution Status Admit Date Near syncope resolved June 062023 7:08pm Unable to ambulate resolved 2023 7:08pm Hospital discharge follow-up acute June 14, 2024 4:15pm Nausea acute May 4:15pm Type 2 diabetes mellitus chronic August 09, 2024 8:22am [facility] Work Phone: 1(571) 300-845504-03-2024 Hospital Discharge instructions Additional Instructions Please return to emergency department for any new or worrisome symptoms including any chest pain, abdominal pain, numbness, weakness, tingling. You should follow-up soon as possible cardiology, and your family physician within the next 1 to 2 days. You likely will need further close follow-up on your thoracic aortic aneurysm which could require intervention in the future.[facility] Work Phone: 1(309) 661-873301-24-2024 Evaluation note* Encounter Date Diagnosis Assessment Notes Treatment Notes Treatment Clinical Notes Sep, Lumbosacral spondylosis (ICD-10 - M47.817) 62 year old female here for follow up status post lumbar facet medial branch nerve block bilaterally at the L3 and L4 levels as well as the L5 dorsal ramus under fluoroscopic guidance. Patient reports 75-80% pain relief as well as improved walking, standing and daily functions for 6 hours following the procedure. She voices continued complaints of low back pain today, as expected. She also voices complaints of pain left hip with radiation down the outer aspect of the left lower extremity to the ankle. I recommend proceeding with a confirmatory lumbar facet medial branch nerve block bilaterally. Risks and benefits of procedure explained to patient; patient verbalizes understanding. Sep, Sacroiliitis (ICD-10 - M46.1) Proceed with treatment of the lumbosacral area. Sep, Chronic pain (ICD-10 - G89.29) Stable Sep, Lumbar radiculopathy (ICD-10 - M54.16) Stable. [facility] Encounter Date Diagnosis Assessment Notes Treatment Notes Treatment Clinical Notes Aug, Lumbosacral spondylosis (ICD-10 - M47.817) 62 y/o female here for follow up status post left followed by right L4, L5 transforaminal epidural steroid injection under fluoroscopic guidance. Patient reports 80-90% relief of her lower extremity pain following the procedure. She complains of low back pain, denying radicular symptoms. Clinically her back pain presents as lumbosacral spondylosis. I recommend proceeding with a bilateral lumbar facet medial branch nerve blocks. Risks and benefits of procedure explained to patient; patient verbalizes understanding. Aug, Sacroiliitis (ICD-10 - M46.1) Consider SI joint injections in the future if needed Aug, Chronic pain (ICD-10 - G89.29) Stable, follow up after procedure. Aug, Lumbar radiculopathy (ICD-10 - M54.16) Lumbar pain is significantly improved following the recent epidural steroid injections. [facility] Other 12-13-2023 Procedure [facility]12-05-2023 Evaluation note* Encounter Date Diagnosis Assessment Notes Treatment Notes Treatment Clinical Notes Aug, Diabetes mellitus (ICD-10 - E11.9) Given how low her A1c is, I advise she stay on the Ozempic but discontinue the metformin. Recheck in 3 months for another A1c. Work on weight loss in the meantime. Aug, Right shoulder pain, unspecified chronicity (ICD-10 - M25.511) I refilled a small amount of tramadol for as needed use, OARRS reviewed. I encouraged her to follow-up with Dr. Sagastume for this as well Aug, Migraine without status migrainosus, not intractable, unspecified migraine type (ICD-10 - G43.909) This has been a difficult issue for her, continue following with neurology as she is doing [facility] Other 11-29-2023 Procedure [facility]11-28-2023 Evaluation note* Encounter Date Diagnosis Assessment Notes Treatment Notes Treatment Clinical Notes Jul, Lumbosacral spondylosis (ICD-10 - M47.817) Still having left leg radiculopathy and dificulty with activities of daily living. Is scheduled tomorrow with Dr Beebe for Left followed by right L4,5 transforaminal epidural steroid injection. Will order PT and follow up in 3 months. Jul, Sacroiliitis (ICD-10 - M46.1) Jul, Lumbar radiculopathy (ICD-10 - M54.16) [facility] Other 11-13-2023 Evaluation note* Encounter Date Diagnosis Assessment Notes Treatment Notes Treatment Clinical Notes 13 Nov, 2023 Lumbar radiculopathy (ICD-10 - M54.16) 62 year old female here for follow up to discuss chronic pain. She voices complaints of low back and buttock pain with radiation down the outer aspect of bilateral lower extremities to the feet, worse on the left. She feels pain is negatively impacting her daily activities and sleeping pattern. Anatomy of spine as well as different treatment options were discussed in detail with patient in regards to patients condition. I recommend we proceed with a left followed by right L4,5 transforaminal epidural steroid injection under fluoroscopic guidance. Risks and benefits of procedure explained to patient; patient verbalizes understanding. Jul, Sacroiliitis (ICD-10 - M46.1) If her pain persists or worsens, we can consider scaroiliac joint inejctions in the future. Jul, Lumbosacral spondylosis (ICD-10 - M47.817) Continue with current treatment plan. Jul, Chronic pain (ICD-10 - G89.29) Follow up after procedure. [facility] Other 08-07-2023 Evaluation note* Encounter Date Diagnosis Assessment Notes Treatment Notes Treatment Clinical Notes Apr, Hypertension (ICD-10 - I10) Apr, Other specified hypothyroidism (ICD-10 - E03.8) Apr, Bacteriuria (ICD-10 - R82.71) [facility] Other 08-03-2023 Evaluation note* Encounter Date Diagnosis Assessment Notes Treatment Notes Treatment Clinical Notes Apr, Hospital discharge follow-up (ICD-10 - Z09) Apr, Stroke-like symptoms (ICD-10 - R29.90) Apr, Other We reviewed her hospital stay and her outpatient follow-up. She has done well since most recent hospital discharge with no recurrence of her strokelike symptoms. Hopefully being off the Ajovy and back on valproic acid will improve things. She is following closely with neurology, continue this. Continue current meds. Her levothyroxine dose was adjusted at the last hospital stay. She will be due for repeat thyroid labs in the next few months. Recheck with me in 4 months, sooner if problems. Handicapped seng provided [facility] Other 07-27-2023 History and physical note Author Jairo Hughes [facility] April 17, 2023 2:02pm Note Date/Time April 16, 2023 4:54 pm [facility] [address] [place], [place] [id number] Hospitalist H&P Signed Patient: Jennifer Rothman MR#: [id number] : 1960 Acct:[id number] Age/Sex: 62 / F Adm Date: 3 Loc: Room: [address] [place] [address] Type: ADM INOo Attending Dr: Jairo Hughes MD Copies to: Isidro Roa, ANP- Jairo Hughes MD~ HPI DATE OF EXAMINATION: 04/16/23 CHIEF COMPLAINT: Right-sided numbness HISTORY OF PRESENT ILLNESS: This is a 62 male past medical history significant for complex migraines, TIA/stroke with prior left-sided deficits, diabetes, hypertension, chronic back pain, hypothyroid. The patient indicates she awoke around 730 this morning after going to bed around 930 last night and noticed some right-sided numbness. She had gone to the store after this and was walking around with her walker at her baseline when she realized she was having difficulties with weakness of her right leg creating difficulty ambulating with prior history of deficits of left leg weakness, mention it to her at which time she then came to the hospital. She indicates the numbness is on right upper and lower extremity as well as right face. She has no other associated symptoms of dizziness headache or visual disturbance. She did express that earlier she felt as if she was having some difficulty getting words out but no slurring of speech was reported,and the symptom has now resolved. Stroke alert was called on the patient upon arrival and later confirmed with [facility] telestroke was involved. TNK not administered or recommended. Work-up was undertaken in the emergency department presenting vital signs temperature 98.0, HR 97, RR 18, BP 195/100, SPO2 97% on RA. CT head and CTA head and neck are all nonacute. CBC normal. Coags normal. BMP electrolytes and renal function normal, glucose 115 nonfasting. CPK 57, troponin 4.8. Urinalysis noninfectious. Chest x- ray nonacute. EKG sinus rhythm with nonspecific T wave abnormality rate 91. Patient seen and examined in the emergency department, no visitors were present. She is pleasant, and interactive. Still reporting right-sided numbness as if it is asleep of her right leg and right arm and right face. She denies any dizziness or headache currently. Denies any confusion or speech problems but reports previously as documented above. No recent illnesses. At baseline she ambulates with a walker. Denies chest pain or palpitations. No cough, dyspnea,or pain with inspiration. No abdominal pain or indigestion, constipation or diarrhea, nausea or vomiting. Reports she is hungry. No dysuria or retention. No fevers or chills. Review of Systems Review of Systems All other systems reviewed & are negative unless noted below or in HPI [facility] Attestation Statement: The following information was validated with the patient. Medical History Alopecia Anxiety disorder Autoimmune disease Alopecia Blind left eye Chronic back pain Conversion disorder Diabetes mellitus Type II HTN (hypertension) Hypothyroid Lacunar stroke Left nephrolithiasis Migraines Pyelonephritis TIA (transient ischemic attack) Surgical History H/O hernia repair History of bilateral carpal tunnel release History of ear surgery History of ureteroscopy kidney stone removal Hx of cholecystectomy Hx of rotator cuff surgery bilateral Previous section Family History Father Prostate CA Diabetes Heart valve replaced Mother Hypertension Dementia High cholesterol Social History Smoking Status: Never smoker Substance Use Type: None Meds Medications and Allergies Allergies Zmaexnn-NLU-FdO Reductase Inhibitor Adverse Reaction (Mild, Verified 04/16/23 13:18) Unknown Reaction Home Medications clopidogrel 75 mg tablet (Plavix) 75 mg PO DAILY hx tia 11/02/17 [History Confirmed 04/16/23] lisinopril 10 mg tablet (Zestril) 10 mg PO QAM htn 11/02/17 [History Confirmed 04/16/23] metformin 1,000 mg tablet 1,000 mg PO BID DM 11/02/17 [History Confirmed 04/16/23] flaxseed oil 1,000 mg capsule 1,000 mg PO BID 03/08/19 [History Confirmed 04/16/23] magnesium 250 mg tablet 500 mg PO DAILY 03/08/19 [History Confirmed 04/16/23] cyclobenzaprine 10 mg tablet 10 mg PO BID 12/15/21 [History Confirmed 04/16/23] semaglutide 1 mg/dose (4 mg/3 mL) subcutaneous pen injector (Ozempic) 2 mg subcut DIRECTED 12/15/21 [History Confirmed 04/16/23] cholecalciferol (vitamin D3) 25 mcg (1,000 unit) tablet (Vitamin D3) 1,000 unit PO DAILY 12/21/21 [History Confirmed 04/16/23] niacin 500 mg tablet (Niacor) 1,000 mg PO BID 12/21/21 [History Confirmed 04/16/23] pregabalin 100 mg capsule (Lyrica) 100 mg PO QAM 12/21/21 [History Confirmed 04/16/23] pregabalin 50 mg capsule (Lyrica) 150 mg PO QHS 12/21/21 [History Confirmed 04/16/23] vitamin B complex 1 cap PO DAILY 12/21/21 [History Confirmed 04/16/23] atogepant 60 mg tablet (Qulipta) 60 mg PO DAILY 12/03/22 [History Confirmed 04/16/23] aspirin 81 mg capsule 81 mg PO DAILY #90 caps 01/27/23 [Rx Confirmed 04/16/23] calcium 600 mg capsule 600 mg PO DAILY 01/27/23 [History Confirmed 04/16/23] levothyroxine 100 mcg tablet 100 mcg PO DAILY 04/16/23 [History Confirmed 04/16/23] rimegepant 75 mg disintegrating tablet (Nurtec ODT) 75 mg PO DAILY PRN Migraine Headache 04/16/23 [History Confirmed 04/16/23] ubrogepant 100 mg tablet (Ubrelvy) 100 mg PO DAILY PRN Migraine Headache 04/16/23 [History Confirmed 04/16/23] Exam Physical Exam Vital Signs: Temp Pulse Resp BP Pulse Ox O2 Del Method 98.0 F 71 18 165/95 H 99 Room Air 04/16/23 13:13 04/16/23 16:19 04/16/23 16:19 04/16/23 16:19 04/16/23 16:19 04/16/23 16:19 Narrative: CONST- alert, on cart in ED, no acute distress HEAD- normocephalic and atraumatic EENT- sclera nonicteric and conjunctiva nonerythemic, moist oral mucosa, pharynxclear, disconjugate eye with left eye blindness NECK- supple, no cervical lymphadenopathy, enlarged circumference CARDIAC- RRR no abnormal heart tones PULM- diminished without wheeze or rhonchi, RA, no accessory muscle use or coughnoted ABD- S/NT, NABS, obese EXTREM- no edema BLE, calves nontender SKIN- W/D, good turgor, pale MS- MAEx4 spontaneously, right hand grasp weaker than left, bilateral lower extremities weak fairly equally NEURO- A&Ox3, speech clear and tongue midline, equal facial symmetry, paresthesia right face arm and leg PSYCH-mood and behavior appropriate Results Lab Results Labs: Laboratory Last Values Corrected WBC 7.0 X10E3/uL (3.8-11.6) 04/16/23 13:17 Uncorrected WBC Count 7.0 x10E3/uL (3.8-11.6) 04/16/23 13:17 RBC 4.68 X10E6/uL (3.60-5.00) 04/16/23 13:17 Hgb 13.1 g/dL (11.8-15.4) 04/16/23 13:17 Hct 40.5 % (34.0-46.4) 04/16/23 13:17 MCV 86.7 fl (80-100) 04/16/23 13:17 MCH 28.1 pg (24.7-34.3) 04/16/23 13:17 MCHC 32.4 g/dL (32.0-35.0) 04/16/23 13:17 RDW 14.2 % (11.9-15.3) 04/16/23 13:17 Plt Count 195 x10E3/uL (150-450) 04/16/23 13:17 MPV 9.1 fl (6.3-10.7) 04/16/23 13:17 Neut % (Auto) 66.6 % (.) 04/16/23 13:17 Lymph % (Auto) 21.8 % (.) 04/16/23 13:17 Bledsoe % (Auto) 7.9 % (.) 04/16/23 13:17 Eos % (Auto) 2.7 % (.) 04/16/23 13:17 Baso % (Auto) 1.0 % (.) 04/16/23 13:17 Nucleat RBC Rel Count 0.1 /100 WBC (0-0.5) 04/16/23 13:17 Neut # (Auto) 4.7 x10E3/uL (1.8-7.7) 04/16/23 13:17 Lymph # (Auto) 1.5 x10E3/uL (1.00-4.8) 04/16/23 13:17 Bledsoe # (Auto) 0.6 x10E3/uL (0.0-0.8) 04/16/23 13:17 Eos # (Auto) 0.2 x10E3/uL (0.0-0.45) 04/16/23 13:17 Baso # (Auto) 0.1 x10E3/uL (0.0-0.2) 04/16/23 13:17 Monocyte Dist Width 16.91 % (0.00-20.00) 04/16/23 13:17 PT 12.0 Seconds (9.0-12.9) 04/16/23 13:17 INR 1.0 04/16/23 13:17 APTT 33.6 Seconds (25.1-36.5) 04/16/23 13:17 PHA Creatinine Clear 103.11 04/16/23 13:17 Sodium 140 mmol/L (136-145) 04/16/23 13:17 Potassium 3.9 mmol/L (3.5-5.1) 04/16/23 13:17 Chloride 103 mmol/L (98-107) 04/16/23 13:17 Carbon Dioxide 29.1 mmol/L (21.0-31.0) 04/16/23 13:17 Anion Gap 11.8 mEq/L (6.0-15.0) 04/16/23 13:17 BUN 9 mg/dL (7-25) 04/16/23 13:17 Creatinine 0.66 mg/dL (0.60-1.20) 04/16/23 13:17 POC Creatinine 0.7 mg/dl (0.6-1.3) 04/16/23 13:21 Est GFR (CKD-EPI) > 60.0 mL/Min 04/16/23 13:17 Glucose 115 mg/dL (70-100) H 04/16/23 13:17 POC Glucose 144 mg/dl 04/16/23 13:18 Calcium 9.3 mg/dL (8.6-10.3) 04/16/23 13:17 Total Creatine Kinase 57 U/L (30-223) 04/16/23 13:17 Troponin I High Sens 4.8 pg/mL (0.0-15.0) 04/16/23 13:17 Urine Color Yellow (Yellow) 04/16/23 14:37 Urine Appearance Clear (Clear) 04/16/23 14:37 Urine pH 6.5 (5.0-9.0) 04/16/23 14:37 Ur Specific Lefor 1.030 (1.001-1.030) 04/16/23 14:37 Urine Protein Negative mg/dL (Negative) 04/16/23 14:37 Urine Glucose (UA) Normal mg/dL (Normal) 04/16/23 14:37 Urine Ketones Negative (Negative) 04/16/23 14:37 Urine Occult Blood Negative (Negative) 04/16/23 14:37 Urine Nitrite Negative (Negative) 04/16/23 14:37 Urine Bilirubin Negative (Negative) 04/16/23 14:37 Urine Urobilinogen Normal mg/dL (Normal) 04/16/23 14:37 Ur Leukocyte Esterase Negative (Negative) 04/16/23 14:37 Assessment & Plan Assessment/Plan (1) Stroke-like symptoms: (2) HTN (hypertension): (3) Type 2 diabetes mellitus: (4) Hypothyroid: (5) Chronic back pain: Plan Right sided paresthesia and weakness r/o CVA Hx CVA with prior left sided weakness Hx complex migraines but currently no headache -neurology consultation pending -CT head, CTA head/neck - nonacute -MRI pending -echo -B12, Vit D, TSH, lipids, A1c -UA noninfectious, CXR nonacute -patient already on ASA and Clopidogrel, statin intolerance documented -therapy evaluations HTN -Lisinopril, prn labetalol. Trend and adjust meds, elevated on admit Chronic Conditions 1. T2DM- fingerstick and SSI. Hold metformin with contrast. A1c pending. Ozempic qFriday 2. Hypothyroid-levothyroxine, check TSH 3. Chronic back pain-Cyclobenzaprine, pregabalin IP vs OBS Justification Based on differential dx, clinical care plan, and risk of adverse events, if untreated, in my clinical judgement this patient requires an acute care setting as: OBSERVATION because of an expectation of an under 2 midnight stay. Estimated length of stay (# of days): 2 Documented By: KAYLIN Small 3 1624 Signed By: <Electronically signed by LELAND-HERNAN Flaherty> 04/16/23 1705 <Electronically signed by Jairo Hughes MD> 04/17/23 140[address] [facility] Work Phone: 1(112) 642-341407-27-2023 Consult note Author Jean Mays [facility] April 17, 2023 3:18pm Note Date/Time April 17, 2023 1:42 pm [facility] [address] [place] [address] Neurology Consult Note Signed Patient: Jennifer Rothman MR#: [id number] : 1960 Acct:[id number] Age/Sex: 62 / F Adm Date: 3 Loc: Room: [address] [place] [address] Type: ADM INOo Attending Dr: Jairo Hughes MD Copies to: Jean Mays DO Isidro E Mast DO Jairo Hughes MD~ HPI Consult Date: 04/17/23 [employer] Salesperson: Jean Mays, DO [facility] Vaccinated for COVID-19?: No Medical History Alopecia Anxiety disorder Autoimmune disease Alopecia Blind left eye Chronic back pain Conversion disorder Diabetes mellitus Type II HTN (hypertension) Hypothyroid Lacunar stroke Left nephrolithiasis Migraines Pyelonephritis TIA (transient ischemic attack) Surgical History H/O hernia repair History of bilateral carpal tunnel release History of ear surgery History of ureteroscopy kidney stone removal Hx of cholecystectomy Hx of rotator cuff surgery bilateral Previous section Family History Father Prostate CA Diabetes Heart valve replaced Mother Hypertension Dementia High cholesterol Social History Smoking Status: Never smoker Substance Use Type: None Meds Medications and Allergies Allergies Osmvmzd-OZQ-DyI Reductase Inhibitor Adverse Reaction (Mild, Verified 04/16/23 13:18) Unknown Reaction Home Medications clopidogrel 75 mg tablet (Plavix) 75 mg PO DAILY hx tia 11/02/17 [History Confirmed 04/16/23] lisinopril 10 mg tablet (Zestril) 10 mg PO QAM htn 11/02/17 [History Confirmed 04/16/23] metformin 1,000 mg tablet 1,000 mg PO BID DM 11/02/17 [History Confirmed 04/16/23] flaxseed oil 1,000 mg capsule 1,000 mg PO BID 03/08/19 [History Confirmed 04/16/23] magnesium 250 mg tablet 500 mg PO DAILY 03/08/19 [History Confirmed 04/16/23] cyclobenzaprine 10 mg tablet 10 mg PO BID 12/15/21 [History Confirmed 04/16/23] semaglutide 1 mg/dose (4 mg/3 mL) subcutaneous pen injector (Ozempic) 2 mg subcut DIRECTED 12/15/21 [History Confirmed 04/16/23] cholecalciferol (vitamin D3) 25 mcg (1,000 unit) tablet (Vitamin D3) 1,000 unit PO DAILY 12/21/21 [History Confirmed 04/16/23] niacin 500 mg tablet (Niacor) 1,000 mg PO BID 12/21/21 [History Confirmed 04/16/23] pregabalin 100 mg capsule (Lyrica) 100 mg PO QAM 12/21/21 [History Confirmed 04/16/23] pregabalin 50 mg capsule (Lyrica) 150 mg PO QHS 12/21/21 [History Confirmed 04/16/23] vitamin B complex 1 cap PO DAILY 12/21/21 [History Confirmed 04/16/23] atogepant 60 mg tablet (Qulipta) 60 mg PO DAILY 12/03/22 [History Confirmed 04/16/23] aspirin 81 mg capsule 81 mg PO DAILY #90 caps 01/27/23 [Rx Confirmed 04/16/23] calcium 600 mg capsule 600 mg PO DAILY 01/27/23 [History Confirmed 04/16/23] rimegepant 75 mg disintegrating tablet (Nurtec ODT) 75 mg PO DAILY PRN Migraine Headache 04/16/23 [History Confirmed 04/16/23] ubrogepant 100 mg tablet (Ubrelvy) 100 mg PO DAILY PRN Migraine Headache 04/16/23 [History Confirmed 04/16/23] levothyroxine 75 mcg tablet 75 mcg PO DAILY@0630 #90 tabs 04/17/23 [Rx] Exam Physical Exam Vital Signs: Temp Pulse Resp BP Pulse Ox O2 Del Method 97.3 F L 70 29 H 135/79 95 Room Air 04/17/23 10:00 04/17/23 10:00 04/17/23 10:00 04/17/23 10:00 04/17/23 10:00 04/17/23 10:00 Results Laboratory Findings 04/17/23 06:11 04/17/23 06:11 Lab Results: Hemoglobin A1c 6.1 % (4.3-5.6) H 04/17/23 06:11 Diagnostic Findings Imaging/Impressions: ITS Impressions Chest X-Ray 04/16/23 13:15 IMPRESSION: No acute process. Impression dictated by: Aron Cross M.D.04/16/2023 1:43 PM Dictation Location: [place] [address] 04/16/23 13:15 IMPRESSION: No acute findings Preliminary findings given 1:30 PM 04/16/2023 Impression dictated by: Aron Cross M.D.04/16/2023 1:33 PM Dictation Location: [place] [address] Head CTA 04/16/23 13:16 IMPRESSION: No occlusion, critical stenosis or dissection of the extracranial or intracranial circulation. Impression dictated by: Aron Cross M.D.04/16/2023 1:42 PM Dictation Location: [place] [address] Assessment/Plan (1) Stroke-like symptoms: Assessment/Problem Details: CONSULT REASON: Right hemisensory changes HPI: She awoke the morning of April 16, 2023 with some right-sided numbness - face, arm, leg. Then she was walking around the store with her walker and felt that her right leg was weak. At some point she did feel like she had difficulty getting some words out. No dysarthria. Initial blood pressure was 195/100 but that did improve. Home medications include clopidogrel 75 mg daily, aspirin 81 mg daily. She has a statin intolerance. Also on rimegepant PRN, ubrogepant PRN, atogepant daily, pregabalin 100/150 mg. Presented with right hemisensory/hemimotor symptoms back on March 05, 2023, similar to now, but back in February she had a severe headache that in terms of duration that lasted her presenting deficits. No headache at this time around. EXAMINATION: Well-kempt.? No distress.? No deformities or trauma.? Limbs seem well-perfused.? No significant edema.? Normal work of breathing.? Visualized skin is generally intact and without lesions.? Affect normal.? Patient is alert and generally oriented.? Attention normal.? Speech is fluent and nondysarthric.? Right pupil is reactive.? Left corneal opacification and left eye deviated laterally. No nystagmus.? Facial sensation is intact on both sides but the right side of her face feels different. ? Hearing is normal.? Facial strength is normal.? Tongue is midline.? No drift in right upper extremity. Both legs seem mildly weak, +4/5 throughout.? No tremors.? Reflexes normal throughout.? No pathologic reflexes.? Light touch is intact in all limbs, but again subjectively touch feels different on the right side of her body.? No limb ataxia with either [id number] testing or heel santa testing. DATA REVIEW: -Previous CTA head and neck shows calcified plaque in the intracranial segments of the internal carotid arteries with the worst narrowing being at the junction of the right ophthalmic segment and supraclinoid segment on the right, and also with focal narrowing at the origin of one of the M2 segments on the right, and focal narrowing of the left HYDRAMATIC MECHANIC at the P2/P3 junction. -Previous MRI studies, last one February 15, 2023, show remote lacunar infarctions in the deep lora nuclei. Prior to that she just had MRI January 27, 2023. -A1c 6.1%, total cholesterol 187 and LDL 112 ASSESSMENT: 1. Non-debilitating right hemibody (face/arm/leg) abnormalities, predominantly paresthesias but with subjective mild sensory loss and mild weakness on that side as well. Similar bodily presentation back in February but that time with headache; that was considered to migraine with atypical aura. Could still consider acephalgic migraine with atypical aura as a potential cause for her current symptoms. A small cerebrovascular event also possible; she does have risk factors for this. 2. Previous MR imaging has shown multiple bilateral remote lacunar infarctions in the deep lora nuclei. Related mainly to hypertension and hyperlipidemia. A1c 6.1%. Lipids are by no means horrible but I would still choose her to have a statin if not for the fact that she cannot tolerate even small doses of a statin. PLAN: 1. MR imaging is very unlikely to knife changer even in the event that this is an acute ischemic stroke. This was discussed with the patient. She has had [address] or MRI images since early January 2023. She and her spouse are in agreement that another set of images seems unnecessary when it will not knife changer. 2. Continue the aspirin 81 mg daily and clopidogrel 75 mg daily 3. She is statin intolerant even to low doses of mild statin medications administered only a few times per week; no statin 4. As an aside she did mention some concerns for dementia given that she had some family members with that and she does not feel as sharp as she used to. I do not get the sense that she is in any early stage of any dementia syndrome. I recommended she talk about these concerns at her outpatient neurology follow-up appointment and also recommended that she may find neuropsychological testing worthwhile. 5. Okay for discharge from my standpoint Code(s): R29.90 - Unspecified symptoms and signs involving the nervous system Status: Acute Documented By: Jean Mays DO 04/17/23 1334 Signed By: <Electronically signed by Jean Mays DO> 04/17/23 [id number] [facility] Work Phone: 1(118) 708-149607-27-2023 Hospital Discharge instructionsAmbulatory Orders* Initiate Home Health Time Frame: 04/17/23, Location: Determined By Patient Additional Instructions Home health to manage: -RN/PT/OT to eval and treat -Monitor VS per protocol -Fall precautions -Perform neuro assessments -Assist with medication management and education Ok to start care [facility]23[facility] Work Phone: 1(104) 745-975606-22-2023 NoteHNO ID: [id number] Author: Po Rivero APRN.VOLTAGE REGULATOR ASSEMBLER Service: ? Author Type: Nurse Practitioner Type: Progress Notes Filed: 03/13/2023 11:15 AM Note Text: Outpatient Headache Clinic - Follow Up Visit Accompanied by: Spouse Primary Problem List: ACTIVE PROBLEM LIST Alopecia Areata Obesity, Class III, BMI >= 40 Migraine Without Aura and Without Status Migrainosus, Not Intractable Intractable Chronic Migraine Without Aura and Without Status Migrainosus Chief Complaint: headaches LV: 03/07/21 Dr. 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 Jennifer Rothman has been previously approved for Calcitonin Gene Related Peptide Monoclonal Antibody (CGRP MAB) (Galcanezumab). 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 Since the last visit, the patient states that her headaches are slightly worse. She was last seen in our department over 2 years ago, plan at that time was to continue Depakote, Gabapentin and Emgality. She follows with a local neurologist and her treatment plan has changed significantly since her last visit. She is now on Ajovy (x4 months), Lyrica (chronic back pain), no longer on Depakote, and also started Qulipta. For migraine rescue she uses both Nurtec and Ubrelvy. She has had multiple hospital admissions in recent months for stroke-like symptoms, with severe headache occurring with most recent hospital admission. She received IV Depakote and steroids which has helped significantly Prior to January she says her headaches were well controlled. Had recent [facility] hospitalization ([facility]) 03/03 -03/07 for right sided weakness in February: Assessment/Plan (1) Intractable headache: Assessment/Problem Details: DATA REVIEW: -CT of head is unremarkable -Previous CTA head and neck shows calcified plaque in the intracranial segments of the internal carotid arteries with the worst narrowing being at the junction of the right ophthalmic segment and supraclinoid segment on the right, and also with focal narrowing at the origin of one of the M2 segments on the right, and focal narrowing of the left HYDRAMATIC MECHANIC at the P2/P3 junction. -MRI shows no acute intracranial pathology, but demonstrates remote lacunar infarctions in the deep lora nuclei ASSESSMENT: Right hemisensory/hemimotor symptoms have resolved. Moderate left-sided stabbing headache persists. This event, along with her recent hospitalizations in January, all most likely demonstrate stroke like migrainous phenomena (a so-called complicated migraine). With the associated headache, TIA is less likely,though she does have significant cerebrovascular risk factors that are appropriately addressed with medication. PLAN: 1.? Continue the aspirin 81 mg daily and clopidogrel 75 mg daily. 2.? She is statin intolerant even to low doses only administered a few times perweek. 3. She can continue the valproic acid 500 mg twice daily until discharge. Her vascular risk factors preclude her from having DHE or triptan medications. 4. Recommend transitioning to p.o. medications and follow-up as outpatient Headache 1 Number of migraine headache days/month: 20 Migraine headache severity: 6/10 Number of NON-migraine headache days/month: 5 Total Number of headache days/month: 25 Number of headache free days/month: 5 Days missed from work or school in the last month: 0 days Preventative: Ajovy, lyrica 100 mg BID, Qulipta 60 mg Abortive: Nurtec, ubrelvy, tylenol Medications effective? sometimes # of doses of abortive medications per month: 12 Prior Therapies Duration of Use Dose Reason for Discontinuation Analgesic Diclofenac (Voltaren, Cataflam, Cambia) Anti-Convulsant Divalproex sodium (Depakote) Gabapentin (Neurontin) Anti-Depressant and Antipsychotic Duloxetine (Cymbalta) Blood Pressure Lisinopril (Zestril) Propranolol (Inderal) MABs Erenumab (Aimovig) severe constipation Galcanezumab (Emgality) Supplements Magnesium Other Medications Cypr (more content not included)...[facility]06-22-2023 Instructions* Patient Instructions* Po Rivero APRN.CNP - 03/13/2023 10:50 AM EDT The following is information regarding Botox: The Botox injections are a series of 31 injections using very small needles to the forehead, sides of the head, back of the head, the neck, and shoulder area. The duration of the procedure for the injections once started is typically 15-20 minutes. Botox has very minimal side effects - The most common may be pain at the injection sites. You may experience flu-like symptoms after the injection, but this is transient and will only last a few days. The first or second Botox injection may not provide relief, but we do recommend continuing for at least 3 injections total to see if there is any benefit prior to stopping the injections. The Botox injections will start to work in about 2 weeks, peak at 4-6 weeks, and gradually lose theeffect - After 3 months, the Botox is out of your system. The Botox injections are scheduled every 3 [facility] of Present illness Narrative* Po Rivero APRN.CNP - 03/13/2023 10:30 AM EDT Images from the original note were not included. Outpatient Headache Clinic - Follow Up Visit Accompanied by: Spouse Primary Problem List: ACTIVE PROBLEM LIST Alopecia Areata Obesity, Class III, BMI >= 40 Migraine Without Aura and Without Status Migrainosus, Not Intractable Intractable Chronic Migraine Without Aura and Without Status Migrainosus Chief Complaint: headaches LV: 03/07/21 Dr. 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 Jennifer Rothman has been previously approved for Calcitonin Gene Related Peptide Monoclonal Antibody (CGRP MAB) (Galcanezumab). 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 Since the last visit, the patient states that her headaches are slightly worse. She was last seen in our department over 2 years ago, plan at that time was to continue Depakote, Gabapentin and Emgality. She follows with a local neurologist and her treatment plan has changed significantly since her last visit. She is now on Ajovy (x4 m onths), Lyrica (chronic back pain), no longer on Depakote, and also started Qulipta. For migraine rescue she uses both Nurtec and Ubrelvy. She has had multiple hospital admissions in recent months for stroke-like symptoms, with severe headache occurring with most recent hospital admission. She received IV Depakote and steroids which has helped significantly Prior to January she says her headaches were well controlled. Had recent OSH hospitalization ([facility]) 03/03 -03/07 for right sided weakness in February: Assessment/Plan (1) Intractable headache: Assessment/Problem Details: DATA REVIEW: -CT of head is unremarkable -Previous CTA head and neck shows calcified plaque in the intracranial segments of the internal carotid arteries with the worst narrowing being at the junction of the right ophthalmic segment and supraclinoid segment on the right, and also with focal narrowing at the origin of one of the M2 segments on the right, and focal narrowing of the left HYDRAMATIC MECHANIC at the P2/P3 junction. -MRI shows no acute intracranial pathology, but demonstrates remote lacunar infarctions in the deepgray nuclei ASSESSMENT: Right hemisensory/hemimotor symptoms have resolved. Moderate left-sided stabbing headache persists.This event, along with her recent hospitalizations in January, all most likely demonstrate stroke like migrainous phenomena (a so-called complicated migraine). With the associated headache, TIA is less likely,though she does have significant cerebrovascular risk factors that are appropriately addressedwith medication. PLAN: 1.? Continue the aspirin 81 mg daily and clopidogrel 75 mg daily. 2.? She is statin intolerant even to low doses only administered a few times perweek. 3. She can continue the valproic acid 500 mg twice daily until discharge. Her vascular risk factorspreclude her from having DHE or triptan medications. 4. Recommend transitioning to p.o. medications and follow-up as outpatient Headache 1 Number of migraine headache days/month: 20 Migraine headache severity: 6/10 Number of NON-migraine headache days/month: 5 Total Number of headache days/month: 25 Number of headache free days/month: 5 Days missed from work or school in the last month: 0 days Preventative: Ajovy, lyrica 100 mg BID, Qulipta 60 mg Abortive: Nurtec, ubrelvy, tylenol Medications effective? sometimes # of doses of abortive medications per month: 12 Prior Therapies Duration of Use Dose Reason for Discontinuation Analgesic Diclofenac (Voltaren, Cataflam, Cambia) Anti-Convulsant Divalproex sodium (Depakote) Gabapentin (Neurontin) Anti-Depressant and Antipsychotic Duloxetine (Cymbalta) Blood Pressure Lisinopril (Zestril) Propranolol (Inderal) MABs Erenumab (Aimovig) severe constipation Galcanezumab (Emgality) Supplements Magnesium Other Medications Cyproheptadine (Periactin) Memantine (Namenda) Over the Counter Medications Aspirin Ibuprofen (Advil, Motrin) PAST MEDICAL HISTORY Diagnosis Date Alopecia Conversion disorder Diabetes (HCC) type 2 H/O rotator cuff surgery bilateral HLD (hyperlipidemia) Hypothyroid Legally blind in left eye, as defined in [place] Migraine without aura Obesity Otosclerosis involving otic capsule, left Stroke (cerebrum) (HCC) R internal capsule,small, December 2016 PAST SURGICAL HISTORY Procedure Laterality Date REMOVAL GALLBLADDER ROTATOR CUFF REPAIR Bilateral ALLERGIES Allergen Reactions Rhvjdlr-Nrk-Pry Red* Intolerance Current Medications: Ascorbic Acid (VITAMIN C) 1,000 mg tablet Take 1,000 mg by mouth once daily. Cholecalciferol, Vitamin D3, (VITAMIN D) 25 mcg (1,000 unit) cap Take 1,000 Units by mouth once daily. Garlic 300 mg cap Take by mouth. QULIPTA 60 mg tablet Take 60 mg by mouth once daily. cyclobenzaprine (FLEXERIL) 10 mg tablet Cyclobenzaprine Active 10 MG PO Twice daily December 15, 2021 12:00am pregabalin (LYRICA) 100 mg capsule Take 100 mg by mouth twice daily. OZEMPIC 1 mg/dose (2 mg/1.5 mL) pnij Inject 1 mg intramuscularly one time a week. Flaxseed Oil 1,000 mg cap Take by mouth twice daily. magnesium oxide 400 mg magnesium cap Take by mouth twice daily. aspirin, enteric coated (ASPIRIN, ENTERIC COATED) 81 mg EC tablet Take 81 mg by mouth once daily. metFORMIN (GLUCOPHAGE) 1,000 mg tablet Take 1 tablet by mouth twice daily with meals. lisinopril (ZESTRIL, PRINIVIL) 10 mg tablet Take 1 tablet by mouth once daily. clopidogrel (PLAVIX) 75 mg tablet Take 1 tablet by mouth once daily. niacin (NIACIN) 500 mg tablet Take 1,000 mg by mouth twice daily with meals. levothyroxine (SYNTHROID) 100 mcg tablet Take 100 mcg by mouth every morning. Take on an empty stomach divalproex DR (DEPAKOTE) 500 mg EC tablet Take 2 tablets by mouth daily at bedtime. melatonin 10 mg cap Take by mouth. prochlorperazine (COMPAZINE) 10 mg tablet Take 1 tablet by mouth every 6 hours as needed (headache). emollient combination no.101 (CERAMAX) crea Apply to affected area three times daily. clobetasol (TEMOVATE) 0.05 % cream Apply to affected area three times daily. Alpha Lipoic Acid 600 mg cap Take by mouth twice daily. Biotin 10,000 mcg cap Take by mouth twice daily. IBUPROFEN (MOTRIN ORAL) Take by mouth as needed. I have reviewed the Jacques Status Assessment responses and discussed these with the patient: yes Po Rivero APRN.VOLTAGE REGULATOR ASSEMBLER HEADACHE SCORES: Headache Questions 06/18/2019 09/10/2019 03/13/2023 ER visits since last office visit: 0 0 3 Hospital stays since last office visit 0 0 3 Limited ADLs in the last month: 4 3 25 Days missed from work or school in the last month: - - 0 Days headache pain free in the last month: 20 20 5 Days per month with ALL of the following symptoms - decreased productivity, light sensitivity and nausea: 0 0 0 Initial improvement of headache after botox injection at last visit: - Not applicable, I did not have a botox injection at my last visit Not applicable, I did not have a botox injection at my last visit PRN medication usage in the last month: 4 6 25 Patient impression of improvement since last visit: Minimally worse Much improved Much worse HIT-6 12/18/2017 03/13/2023 HIT-6 61 - HIT-6 - 67 (Severe impact) LON - 2/7 SCORES 06/18/2019 09/10/2019 03/13/2023 LON-2 Score 0 0 0 Migraine Specific QOL - Higher scores indicate better HRQL 06/18/2019 09/10/2019 03/13/2023 Role Function-Restrictive Transformed Score (range: 0-100) 77.14 71.42 20 Role Function-Preventive Transformed Score (range: 0-100) 80 80 20 Emotional Function Transformed Score (range: 0-100) 80 53.33 40 PHQ-9 12/18/2017 06/18/2019 09/10/2019 Score 3 5 2 Studies to Review: No MRI Head/Brain - Last 2 Impressions No resulted procedures found. MRA Head and/or Neck - Last 2 Impressions No resulted procedures found. MRI Cervical Spine - Last 2 Impressions No resulted procedures found. MRI Lumbar Spine - Last 2 Impressions No resulted procedures found. MRI Thoracic Spine - Last 2 Impressions No resulted procedures found. MRI Spine - Last 2 Impressions No resulted procedures found. CT Head/Brain - Last 2 Impressions No resulted procedures found. CTA Head and/or Neck - Last 2 No resulted procedures found. Labs to Review No New Health Issues: No New Family History: No Review of Systems: Review of system : unchanged from the previous visit (sleep patterns, mood, energy, appetite, stress, exercising). Physical Examination: VS: BP 135/85 (BP Site: Right Arm, BP Position: Sitting, BP Cuff Size: Large Adult) Pulse 112 Wt 100.2 kg (221 lb) BMI 37.93 kg/m General: well appearing, in no acute distress, alert HEENT: Normocephalic/atraumatic. Skin: Color, texture, turgor normal. No rashes or lesions Lungs: normal breath sounds bilaterally CV: RRR, normal S1, S2 auscultated, no murmurs, and no JVD Musculoskeletal: No gross joint deformities. Neurological: Pain Behaviors: no pain behaviors observed Mental Status: Alert and oriented to person, place and time. Affect is normal and appropriate. Speech is spontaneous and fluent without dysarthria, normal in rate, volume and articulation, and clear,coherent, and relevant. Short and terminal gauger memory, cognition and general fund of knowledge are good. Attention span and concentration are good. Cranial Nerves: II-Visual hercules are full (blind left eye baseline). III, IV, - extraocular muscles intact bilaterally, V-normal facial sensation to light touch. VII-face is symmetric without evidence of weakness. VIII-hearing intact. IX, X-palate elevates symmetrically. XI-SCM 5/5 with shouldershrug. XII-tongue protrudes midline with normal movements. No atrophy or fasciculations of the tongue. Motor: Normal muscle tone and bulk. No evidence of atrophy or fasciculations. Strength is normal, 5/5. Sensation: normal light touch in the upper and lower extremities. Cerebellar: No ataxia. Tremor: absent. Normal finger to nose. Deep Tendon Reflexs: 2+. Pathologic reflexes: absent. Gait examination is normal. The patient had no difficulty with heel, toe or tandem walking. Rombergtesting is normal. 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 Her neurological examination is essentially normal at this visit. Recent work up at OSH for stroke like symptoms and migraine was unrevealing. She reports feeling significantly better this week, however her migraines have become more frequent in recent months. Given her extensive medical history and previously tried and failed medication therapies, I believe she is an excellent candidate for Botox PREEMPT protocol. She has an appointment with her local neurologist next week and will discuss this, she is also scheduled for an eye exam in March. I have advised to her seek immediate treatment or any red flag symptoms. She will follow up with our department if she is unable to get Botox done locally. Patient verbalized understanding and agreed to treatment plan. Red Flags: none PLAN: -Discuss starting Botox injections with local neurologist -Continue current medications as prescribed -Follow up PRN HEADACHE MANAGEMENT: (You are the primary guardian of your health and headache. Keep track of all medications: This includes the reason for use, side effects and benefits.) MEDICATION TREATMENT: Medications to Start Taking None Discussed pathophysiology of headache. Discussed use of headache diary. Discussed triggers and lifestyle modifications including limiting caffeine consumption. Discussed treatment options, both abortive and preventive medications. Instructed patient about medications. Discussed BOTOX in detail including possible benefits and risks. Headache education was done. Discussed lifestyle modification including increased oral hydration, decreased caffeine, exercise and stress management. Discussed treatment options including preventive and acute medications, natural supplements, and infusion therapy. Discussed medication overuse headache and to limit use of acute treatments to no more than 2 days/week or 10 days/month. Discussed medication side effects, adverse reactions and drug interactions. RESEARCH: None at this time Follow-up: PRN Level of service: Est level 4 (30-39 min). Time spent 30 min on the day of service, which included preparing to see the patient, [id number]-[id number] patient care, completing clinical documentation, obtaining and/or reviewing separately obtained history, performing a medically appropriate examination, and counseling and educating the patient/family/caregiver. Po Rivero APRN.CNP Headache Section [facility] March 13, 2023 documented [facility] Progress note Author Michael Ashraf [facility] March 07, 2023 12:45pm Note Date/Time March 07, 2023 12:4 5pm [facility] [address] [place], [place] [id number] Neurology Progress Note Signed Patient: MinorJennifer MR#: [id number] : 1960 Acct:[id number] Age/Sex: 62 / F Adm Date: 3 Loc: 3T Room: [address] [place] [address] Type: ADM IN Attending Dr: Karen Mar MD Copies to: ~ Date of Service: 03/07/2023 Subjective Subjective Narrative: The patient states that her headaches are improved with medications. She statesthat the unilateral numbness has improved. She denies any new focal neurological symptoms. The patient still taking IV medications for pain control Review of Systems Review of Systems All other systems reviewed & are negative unless noted below or in HPI Exam Physical Exam Vital Signs: Temp Pulse Resp BP Pulse Ox O2 Del Method 98.2 F 70 18 151/80 H 98 Room Air 03/07/23 11:48 03/07/23 11:48 03/07/23 11:48 03/07/23 11:48 03/07/23 11:48 03/07/23 11:48 Neuro Other: No distress.?Affect normal.? Patient is alert and generally oriented.? Attentionnormal.? Speech is fluent and nondysarthric.? Right pupil is reactive.? Left corneal opacification and left eye deviated laterally. No nystagmus.? Facial sensation is normal.? Hearing is normal.? Facial strength is normal.? Tongue is midline.? Muscle bulk, tone, and strength are normal.? No tremors.? Reflexes normal throughout.? No pathologic reflexes.? Light touch is normal.? Vibratory sensation is normal. Normal rapidly alternating movements.? No limb dysmetria with kzhthl-nyfb-mzotpx testing.? Objective Vital Signs Vital Signs: Vital Signs - 24 hr 03/06/23 16:00 03/06/23 20:00 03/06/23 20:00 Temperature 98.0 F 98.2 F Pulse Rate 75 78 Respiratory Rate 18 16 Blood Pressure 153/83 H 150/87 H 02 Sat by Pulse Oximetry 100 94 L Oxygen Delivery Method Room Air Room Air Nasal Cannula 03/06/23 23:29 03/07/23 04:00 03/07/23 08:00 Temperature 98.2 F 98.2 F 98.2 F Pulse Rate 67 77 72 Respiratory Rate 14 16 18 Blood Pressure 132/65 151/86 H 146/84 H 02 Sat by Pulse Oximetry 97 99 98 Oxygen Delivery Method Room Air Room Air Room Air 03/07/23 08:00 03/07/23 11:48 Temperature 98.2 F Pulse Rate 70 Respiratory Rate 18 Blood Pressure 151/80 H 02 Sat by Pulse Oximetry 98 Oxygen Delivery Method Room Air Room Air Labs 03/05/23 05:02 03/05/23 05:02 Therapy Recommendations Therapy Recommendations: OT Recommendations OT Recommended Discharge Home with Home Health Location OT Recommended Services at Physical Therapy Discharge PT Recommendations PT Recommended Discharge Home with Home Health Location PT Recommended Services at Physical Therapy Discharge Assessment/Plan (1) Intractable headache: Assessment/Problem Details: DATA REVIEW: -CT of head is unremarkable -Previous CTA head and neck shows calcified plaque in the intracranial segments of the internal carotid arteries with the worst narrowing being at the junction of the right ophthalmic segment and supraclinoid segment on the right, and also with focal narrowing at the origin of one of the M2 segments on the right, and focal narrowing of the left HYDRAMATIC MECHANIC at the P2/P3 junction. -MRI shows no acute intracranial pathology, but demonstrates remote lacunar infarctions in the deep lora nuclei ASSESSMENT: Right hemisensory/hemimotor symptoms have resolved. Moderate left-sided stabbing headache persists. This event, along with her recent hospitalizations in January, all most likely demonstrate stroke like migrainous phenomena (a so-called complicated migraine). With the associated headache, TIA is less likely,though she does have significant cerebrovascular risk factors that are appropriately addressed with medication. PLAN: 1.? Continue the aspirin 81 mg daily and clopidogrel 75 mg daily. 2.? She is statin intolerant even to low doses only administered a few times perweek. 3. She can continue the valproic acid 500 mg twice daily until discharge. Her vascular risk factors preclude her from having DHE or triptan medications. 4. Recommend transitioning to p.o. medications and follow-up as outpatient Code(s): R51.9 - Headache, unspecified Status: Acute Documented By: Michael Ashraf MD 03/07/23 1240 Signed By: <Electronically signed by MD Michael Ashraf> 03/07/[address] [facility] Work Phone: 1([phone]) 378-640506-16-2023 Hospital Discharge instructionsAmbulatory Orders* Initiate Home Health Time Frame: 03/07/23, Location: Determined By Patient [facility] Phone: [phone] Progress note Author Karen Mar [facility] March 07, 2023 12:25am Note Date/Time March 06, 2023 10:0 0am [facility] [address] [place] [address] Hospitalist Progress Note Signed Patient: Jennifer Rothman MR#: [id number] : 1960 Acct:[id number] Age/Sex: 62 / F Adm Date: 3 Loc: 3T Room: [address] [place] [address] Type: ADM IN Attending Dr: Karen Mar MD Copies to: ~ Date of Service: 03/06/2023 Subjective Subjective Narrative: Seen and examined at bedside. No acute events overnight. Reports slight improvement in headache and eye vision. Continues to deny dizziness, left-sidedweakness numbness and tingling. No fever, chills. Exam Physical Exam Vital Signs: Temp Pulse Resp BP Pulse Ox O2 Del Method 98.0 F 82 18 139/83 99 Room Air 03/06/23 08:00 03/06/23 08:00 03/06/23 08:00 03/06/23 08:00 03/06/23 08:00 03/06/23 08:00 Narrative: CONST-awake, alert HEAD - Normocephalic and atraumatic CARDIAC-normal rate, regular rhythm, normal S1 & S2. PULM-diminished without wheeze or rhonchi, RA, no accessory muscle use or cough noted ABD - Soft. Bowel sounds are normal. Obese no tenderness MS- MAEX4 spontaneously with equal with equal strength NEURO- A&Ox3 speech clear and tongue midline, equal facial symmetry no focal motor deficits Objective Lab Results 03/05/23 05:02 03/05/23 05:02 Meds Allergies and Active Meds Allergies Cxnspnv-ZBJ-MxS Reductase Inhibitor Adverse Reaction (Mild, Verified 03/04/23 15:51) Unknown Reaction Active Meds: Active Medications Generic Name Dose Route Start Last Admin Trade Name Freq PRN Reason Stop Dose Admin Hydrocodone Bitart/Acetaminophen 1 tab 03/04/23 18:20 03/05/23 20:27 Hydrocodone/Acetaminophen 5-325 Mg Tablet PO 1 tab Q4H PRN Administration Pain Scale 4 - 7 Aspirin 81 mg 03/05/23 09:00 03/06/23 08:28 Aspirin 81 Mg Tablet. PO 03/04/24 08:59 81 mg DAILY MARY Administration Calcium Carbonate 500 mg 03/05/23 08:00 03/06/23 08:28 Calcium Carbonate 500 Mg Tablet PO 03/04/24 07:59 500 mg DAILY.WITH.BKFAST MARY Administration Clopidogrel Bisulfate 75 mg 03/05/23 09:00 03/06/23 08:28 Clopidogrel Bisulfate 75 Mg Tablet PO 03/04/24 08:59 75 mg DAILY MARY Administration Dextrose 0 gm 03/04/23 18:25 Dextrose 50% In Water 25 Gm/50 Ml Syringe IV-PUSH 03/03/24 18:24 PRN PRN Hypoglycemia Enoxaparin Sodium 40 mg 03/05/23 10:00 03/05/23 11:46 Enoxaparin 40 Mg/0.4 Ml Syringe SUBCUT 03/04/24 09:59 40 mg DAILY@10 MARY Administration Glucose 0 gm 03/04/23 18:25 Dextrose 40% Gel 15 Gm Tube PO 03/03/24 18:24 PRN PRN Hypoglycemia Hydralazine HCl 10 mg 03/04/23 18:53 Hydralazine 20 Mg/Ml Vial IV-PUSH 03/03/24 18:52 Q4H PRN if SBP > 185 Hydromorphone HCl 0.5 mg 03/04/23 18:20 03/06/23 05:34 Hydromorphone 0.5 Mg/0.5 Ml Syringe IV-PUSH 0.5 mg Q4H PRN Administration Pain Scale 8 - 10 Valproic Acid 500 mg/ Sodium 105 mls @ 105 mls/hr 03/05/23 14:40 03/06/23 08:29 Chloride IV 03/07/23 09:01 105 mls/hr Q12HR MARY Administration Insulin Aspart 0 units 03/04/23 22:00 03/06/23 08:29 Insulin Aspart 300 Units/3 Ml Insuln.Pen SUBCUT 03/03/24 21:59 1 units TID.WM.HS MARY Administration Protocol Insulin Glargine 5 units 03/05/23 08:00 03/06/23 08:30 Insulin Glargine 300 Units/3 Ml Insuln.Pen SUBCUT 03/04/24 07:59 5 units DAILY.WITH.BKFAST MARY Administration Levothyroxine Sodium 75 mcg 03/05/23 06:30 03/06/23 05:34 Levothyroxine 75 Mcg Tablet PO 03/04/24 06:29 75 mcg DAILY@0630 MARY Administration Lisinopril 10 mg 03/05/23 09:00 03/06/23 08:29 Lisinopril 10 Mg Tablet PO 03/04/24 08:59 10 mg QAM MARY Administration Metoclopramide HCl 10 mg 03/04/23 18:56 Metoclopramide 10 Mg/2 Ml Vial IV-PUSH 03/03/24 18:55 Q6HR PRN Nausea And Vomiting Non-Formulary Medication 60 mg 03/05/23 09:00 Atogepant [Qulipta] PO 03/04/24 08:59 DAILY MARY Pregabalin 150 mg 03/04/23 22:00 03/05/23 21:44 Pregabalin 150 Mg Capsule PO 08/31/23 21:59 150 mg QHS MARY Administration Pregabalin 100 mg 03/05/23 09:00 03/06/23 08:28 Pregabalin 100 Mg Capsule PO 09/01/23 08:59 100 mg QAM MARY Administration Sodium Chloride 0 ml 03/04/23 17:21 03/05/23 15:22 Sodium Chloride 0.9 % 10 Ml Syringe IV-PUSH 03/03/24 17:20 10 ml PRN PRN Administration Flush Vitamin D 25 mcg 03/05/23 09:00 03/06/23 08:28 Cholecalciferol 25 Mcg (1,000 Units) Tablet PO 03/04/24 08:59 25 mcg DAILY MARY Administration A&P - Hospitalist Assessment/Plan (1) Right sided weakness: (2) Uncontrolled hypertension: (3) Intractable headache: Plan Right-sided weakness/numbness?resolved History of CVA and TIA Intractable headache Status migrainosus Reports slight improvement in headache and improved vision to right eye, however still needing IV opiates to keep pain under control. ?CT brain did not show any acute intracranial process ?On Valproic acid IV 500 mg twice daily ?Lipid panel on 01/27 with LDL 106, cholesterol 177 A1c 6.2. Statin intolerance. Echocardiogram 01/26 EF of 65% ?Continue Qulipta, pain and nausea medication as needed ?PT/OT Hypertension, controlled ?Continue lisinopril ?hydralazine as needed Chronic conditions 1.Migraines- monthly Ajovy, continue Qulipta 2.Hypothyroid- levothyroxine.? 3 DM type II-we will hold metformin. Start long-acting insulin, SSI, last A1c of 6.2 4.Chronic back pain-we will hold off cyclobenzaprine for now CODE STATUS full code DVT prophylaxis: Lovenox Attending Physician Attestation: I agree with the findings and plan as documented in this note and have edited it if needed to reflect my findings and plan. Karen Mar MD Documented By: Dorys Palacios APRN 03/06/23 0954 Signed By: <Electronically signed by HANY Palacios> 03/06/23 1135 <Electronically signed by Karen Mar MD> 03/07/[address] [facility] Work Phone: 1(433) 405-477506-15-2023 Progress note Author Jean Mays [facility] March 06, 2023 2:12pm Note Date/Time March 06, 2023 2:12 pm [facility] [address] [place] [address] Neurology Progress Note Signed Patient: Jennifer Rothman MR#: [id number] : 1960 Acct:[id number] Age/Sex: 62 / F Adm Date: 3 Loc: Room: [address] [place] [address] Type: ADM IN Attending Dr: Karen Mar MD Copies to: ~ Date of Service: 03/06/2023 Exam Physical Exam Vital Signs: Temp Pulse Resp BP Pulse Ox O2 Del Method 98.0 F 100 H 18 159/90 H 100 Room Air 03/06/23 12:00 03/06/23 12:00 03/06/23 12:00 03/06/23 12:00 03/06/23 12:00 03/06/23 12:00 Objective Vital Signs Vital Signs: Vital Signs - 24 hr 03/05/23 14:28 03/05/23 20:00 03/06/23 00:00 Temperature 97.8 F 97.5 F L 97.7 F Pulse Rate 74 73 80 Respiratory Rate 16 15 16 Blood Pressure 135/81 141/81 H 128/79 02 Sat by Pulse Oximetry 97 94 L 96 Oxygen Delivery Method Room Air Room Air Room Air 03/05/23 20:00 03/06/23 04:00 03/06/23 08:00 Temperature 97.6 F 98.0 F Pulse Rate 81 82 Respiratory Rate 16 18 Blood Pressure 135/83 139/83 02 Sat by Pulse Oximetry 97 99 Oxygen Delivery Method Room Air Room Air Room Air 03/06/23 08:00 03/06/23 12:00 Temperature 98.0 F Pulse Rate 100 H Respiratory Rate 18 Blood Pressure 159/90 H 02 Sat by Pulse Oximetry 100 Oxygen Delivery Method Room Air Room Air Labs 03/05/23 05:02 03/05/23 05:02 Therapy Recommendations Therapy Recommendations: OT Recommendations OT Recommended Discharge Home with Home Health Location OT Recommended Services at Physical Therapy Discharge PT Recommendations PT Recommended Discharge Home with Home Health Location PT Recommended Services at Physical Therapy Discharge Assessment/Plan (1) Intractable headache: Assessment/Problem Details: CONSULT REASON: Headache, right hemiparesis and sensory loss SUBJECTIVE: She received the methylprednisolone and some IV Depakote. She is feeling significantly better today but says the headache is still uncomfortable. She still tries to avoid sounds. She is still supine in a dimly lit room. The symptoms in the right side of the body remain resolved. No new symptoms to report. EXAMINATION: Well-kempt.? No distress.? No deformities or trauma.? Normal spinal curvature.? Limbs seem well-perfused.? No significant edema.? Normal work of breathing.? Visualized skin is generally intact and without lesions.? Affect normal.? Patient is alert and generally oriented.? Attention normal.? Speech is fluent and nondysarthric.? Right pupil is reactive.? Left corneal opacification and left eye deviated laterally. No nystagmus.? Facial sensation is normal.? Hearingis normal.? Facial strength is normal.? Tongue is midline.? Muscle bulk, tone, and strength are normal.? No tremors.? Reflexes normal throughout.? No pathologic reflexes.? Light touch is normal.? Vibratory sensation is normal. Normal rapidly alternating movements.? No limb dysmetria with dxafoc-ukjf-xzzmdohmswznw.? DATA REVIEW: -CT of head is unremarkable -Previous CTA head and neck shows calcified plaque in the intracranial segments of the internal carotid arteries with the worst narrowing being at the junction of the right ophthalmic segment and supraclinoid segment on the right, and also with focal narrowing at the origin of one of the M2 segments on the right, and focal narrowing of the left HYDRAMATIC MECHANIC at the P2/P3 junction. -MRI shows no acute intracranial pathology, but demonstrates remote lacunar infarctions in the deep lora nuclei ASSESSMENT: Right hemisensory/hemimotor symptoms have resolved. Moderate left-sided stabbing headache persists. This event, along with her recent hospitalizations in January, all most likely demonstrate stroke like migrainous phenomena (a so-called complicated migraine). With the associated headache, TIA is less likely, thoughanne-marie does have significant cerebrovascular risk factors that are appropriately addressed with medication. PLAN: 1.? Continue the aspirin 81 mg daily and clopidogrel 75 mg daily. 2.? She is statin intolerant even to low doses only administered a few times perweek. 3. She can continue the valproic acid 500 mg twice daily until discharge. Her vascular risk factors preclude her from having DHE or triptan medications. 4. No other recommendations at this time. It seems her headache is finally on its way out. Code(s): R51.9 - Headache, unspecified Status: Acute Documented By: Jean Mays DO 03/06/23 1406 Signed By: <Electronically signed by Jean Mays DO> 03/06/[address] [facility] Work Phone: 1([phone]) 198-316406-15-2023 Progress note Author Karen Mar [facility] March 06, 2023 2:04am Note Date/Time March 05, 2023 3:52 pm [facility] [address] [place] [address] Hospitalist Progress Note Signed Patient: MinorJennifer MR#: [id number] : 1960 Acct:[id number] Age/Sex: 62 / F Adm Date: 3 Loc: 3T Room: [address] [place] [address] Type: ADM IN Attending Dr: Karen Mar MD Copies to: ~ Date of Service: 03/05/2023 Subjective Subjective Narrative: Patient seen and evaluated in the morning. Reported persistent moderately high headache with new symptom of blurry vision to the right eye. Reports resolved right-sided weakness and numbness. Denies dizziness, no nausea/vomiting. Afebrile Exam Physical Exam Vital Signs: Temp Pulse Resp BP Pulse Ox O2 Del Method 97.8 F 74 16 135/81 97 Room Air 03/05/23 14:28 03/05/23 14:28 03/05/23 14:28 03/05/23 14:28 03/05/23 14:28 03/05/23 14:28 Narrative: CONST-awake, alert HEAD - Normocephalic and atraumatic CARDIAC-normal rate, regular rhythm, normal S1 & S2. PULM-diminished without wheeze or rhonchi, RA, no accessory muscle use or cough noted ABD - Soft. Bowel sounds are normal. Obese no tenderness MS- MAEX4 spontaneously with equal with equal strength NEURO- A&Ox3 speech clear and tongue midline, equal facial symmetry no focal motor deficits Objective Lab Results 03/05/23 05:02 03/05/23 05:02 Meds Allergies and Active Meds Allergies Rpsacyu-NBH-ArY Reductase Inhibitor Adverse Reaction (Mild, Verified 03/04/23 15:51) Unknown Reaction Active Meds: Active Medications Generic Name Dose Route Start Last Admin Trade Name Freq PRN Reason Stop Dose Admin Hydrocodone Bitart/Acetaminophen 1 tab 03/04/23 18:20 03/05/23 14:26 Hydrocodone/Acetaminophen 5-325 Mg Tablet PO 1 tab Q4H PRN Administration Pain Scale 4 - 7 Aspirin 81 mg 03/05/23 09:00 03/05/23 08:33 Aspirin 81 Mg Tablet. PO 03/04/24 08:59 81 mg DAILY MARY Administration Calcium Carbonate 500 mg 03/05/23 08:00 03/05/23 08:33 Calcium Carbonate 500 Mg Tablet PO 03/04/24 07:59 500 mg DAILY.WITH.BKFAST MARY Administration Clopidogrel Bisulfate 75 mg 03/05/23 09:00 03/05/23 08:33 Clopidogrel Bisulfate 75 Mg Tablet PO 03/04/24 08:59 75 mg DAILY MARY Administration Dextrose 0 gm 03/04/23 18:25 Dextrose 50% In Water 25 Gm/50 Ml Syringe IV-PUSH 03/03/24 18:24 PRN PRN Hypoglycemia Enoxaparin Sodium 40 mg 03/05/23 10:00 03/05/23 11:46 Enoxaparin 40 Mg/0.4 Ml Syringe SUBCUT 03/04/24 09:59 40 mg DAILY@10 MARY Administration Glucose 0 gm 03/04/23 18:25 Dextrose 40% Gel 15 Gm Tube PO 03/03/24 18:24 PRN PRN Hypoglycemia Hydralazine HCl 10 mg 03/04/23 18:53 Hydralazine 20 Mg/Ml Vial IV-PUSH 03/03/24 18:52 Q4H PRN if SBP > 185 Hydromorphone HCl 0.5 mg 03/04/23 18:20 03/05/23 11:46 Hydromorphone 0.5 Mg/0.5 Ml Syringe IV-PUSH 0.5 mg Q4H PRN Administration Pain Scale 8 - 10 Valproic Acid 500 mg/ Sodium 105 mls @ 105 mls/hr 03/05/23 14:40 03/05/23 15:22 Chloride IV 03/07/23 09:01 105 mls/hr Q12HR MARY Administration Methylprednisolone Sodium 108 mls @ 108 mls/hr 03/05/23 15:00 Succinate 500 mg/ Sodium IV 03/05/23 15:59 Chloride ONCE ONE Insulin Aspart 0 units 03/04/23 22:00 03/05/23 11:49 Insulin Aspart 300 Units/3 Ml Insuln.Pen SUBCUT 03/03/24 21:59 Not Given TID.WM.HS [facility] Protocol Insulin Glargine 5 units 03/05/23 08:00 03/05/23 08:38 Insulin Glargine 300 Units/3 Ml Insuln.Pen SUBCUT 03/04/24 07:59 Not Given DAILY.WITH.BKFAST MARY Levothyroxine Sodium 75 mcg 03/05/23 06:30 03/05/23 06:07 Levothyroxine 75 Mcg Tablet PO 03/04/24 06:29 75 mcg DAILY@0630 MARY Administration Lisinopril 10 mg 03/05/23 09:00 03/05/23 08:33 Lisinopril 10 Mg Tablet PO 03/04/24 08:59 10 mg QAM MARY Administration Metoclopramide HCl 10 mg 03/04/23 18:56 Metoclopramide 10 Mg/2 Ml Vial IV-PUSH 03/03/24 18:55 Q6HR PRN Nausea And Vomiting Non-Formulary Medication 60 mg 03/05/23 09:00 Atogepant [Qulipta] PO 03/04/24 08:59 DAILY MARY Pregabalin 150 mg 03/04/23 22:00 03/04/23 22:33 Pregabalin 150 Mg Capsule PO 08/31/23 21:59 150 mg QHS MARY Administration Pregabalin 100 mg 03/05/23 09:00 03/05/23 08:33 Pregabalin 100 Mg Capsule PO 09/01/23 08:59 100 mg QAM MARY Administration Sodium Chloride 0 ml 03/04/23 17:21 03/05/23 15:22 Sodium Chloride 0.9 % 10 Ml Syringe IV-PUSH 03/03/24 17:20 10 ml PRN PRN Administration Flush Vitamin D 25 mcg 03/05/23 09:00 03/05/23 08:33 Cholecalciferol 25 Mcg (1,000 Units) Tablet PO 03/04/24 08:59 25 mcg DAILY MARY Administration A&P - Hospitalist Assessment/Plan (1) Right sided weakness: (2) Uncontrolled hypertension: (3) Intractable headache: Plan Right-sided weakness/numbness?resolved History of CVA and TIA Intractable headache Uncontrolled hypertension?improved Continues with intractable headache with new symptom of right thigh blurry vision. Reports right-sided weakness and numbness is resolved, denies dizziness ?CT brain did not show any acute intracranial process ? Neurology consulted, with recommendations to continue aspirin and Plavix. Statin intolerant.Started on methylprednisolone 500 mg x 1 and then valproic acid 500 mg twice daily, appreciate recommendations ?Lipid panel on 01/27 with LDL 106, cholesterol 177 A1c 6.2. Echocardiogram 01/26 EF of 65% ? Continue lisinopril and as needed hydralazine ?Continue Qulipta, pain and nausea medication as needed ?PT/OT Chronic conditions 1.Migraines- monthly Ajovy, continue Qulipta 2.Hypothyroid- levothyroxine.? 3 DM type II-we will hold metformin. Start long-acting insulin, SSI, last A1c of 6.2 4.Chronic back pain-we will hold off cyclobenzaprine for now CODE STATUS full code DVT prophylaxis: Lovenox Attending Physician Attestation: I agree with the findings and plan as documented in this note and have edited it if needed to reflect my findings and plan. Karen Mar MD Documented By: Dorys Palacios APRN 03/05/23 1542 Signed By: <Electronically signed by HANY Palacios> 03/05/23 155 <Electronically signed by Karen Mar MD> 03/06/[address] [facility] Work Phone: 1(109) 709-772106-14-2023 Consult note Author Jean Mays [facility] March 05, 2023 2:36pm Note Date/Time March 05, 2023 2:34 pm [facility] [address] [place] [address] Neurology Consult Note Signed Patient: Jennifer Rothman MR#: [id number] : 1960 Acct:[id number] Age/Sex: 62 / F Adm Date: 3 Loc: Room: [address] [place] [address] Type: ADM INOo Attending Dr: Karen Mar MD Copies to: Jean Mays DO Isidro E Mast DO Karen Mar MD~ HPI Consult Date: 03/05/23 [employer] Salesperson: Jean Mays, DO PMFSH Vaccinated for COVID-19?: No Medical History Alopecia Anxiety disorder Autoimmune disease Alopecia Blind left eye Chronic back pain Conversion disorder Diabetes mellitus Type II HTN (hypertension) Hypothyroid Lacunar stroke Left nephrolithiasis Migraines Pyelonephritis TIA (transient ischemic attack) Surgical History H/O hernia repair History of bilateral carpal tunnel release History of ear surgery History of ureteroscopy kidney stone removal Hx of cholecystectomy Hx of rotator cuff surgery bilateral Previous section Family History Father Prostate CA Diabetes Heart valve replaced Mother Hypertension Dementia High cholesterol Social History Smoking Status: Never smoker Substance Use Type: None Meds Medications and Allergies Allergies Jsgskle-UGQ-FfU Reductase Inhibitor Adverse Reaction (Mild, Verified 03/04/23 15:51) Unknown Reaction Home Medications clopidogrel 75 mg tablet (Plavix) 75 mg PO DAILY hx tia 11/02/17 [History Confirmed 03/04/23] lisinopril 10 mg tablet (Zestril) 10 mg PO QAM htn 11/02/17 [History Confirmed 03/04/23] metformin 1,000 mg tablet 1,000 mg PO BID DM 11/02/17 [History Confirmed 03/04/23] flaxseed oil 1,000 mg capsule 1,000 mg PO BID 03/08/19 [History Confirmed 03/04/23] magnesium 250 mg tablet 500 mg PO DAILY 03/08/19 [History Confirmed 03/04/23] cyclobenzaprine 10 mg tablet 10 mg PO BID 12/15/21 [History Confirmed 03/04/23] semaglutide 1 mg/dose (4 mg/3 mL) subcutaneous pen injector (Ozempic) 2 mg subcut DIRECTED 12/15/21 [History Confirmed 03/04/23] cholecalciferol (vitamin D3) 25 mcg (1,000 unit) tablet (Vitamin D3) 1,000 unit PO DAILY 12/21/21 [History Confirmed 03/04/23] niacin 500 mg tablet (Niacor) 1,000 mg PO BID 12/21/21 [History Confirmed 03/04/23] pregabalin 100 mg capsule (Lyrica) 100 mg PO QAM 12/21/21 [History Confirmed 03/04/23] pregabalin 50 mg capsule (Lyrica) 150 mg PO QHS 12/21/21 [History Confirmed 03/04/23] vitamin B complex 1 cap PO DAILY 12/21/21 [History Confirmed 03/04/23] atogepant 60 mg tablet (Qulipta) 60 mg PO DAILY 12/03/22 [History Confirmed 03/04/23] fremanezumab-vfrm 225 mg/1.5 mL subcutaneous syringe (Ajovy Syringe) See Rx Instructions .Route .COMPLEX 01/26/23 [History Confirmed 03/04/23] aspirin 81 mg capsule 81 mg PO DAILY #90 caps 01/27/23 [Rx Confirmed 03/04/23] calcium 600 mg capsule 600 mg PO DAILY 01/27/23 [History Confirmed 03/04/23] cyanocobalamin (vitamin B-12) 1,000 mcg/mL injection solution 1,000 mcg subcut QWEEK 4 weeks #4 mL 02/17/23 [Rx Confirmed 03/04/23] levothyroxine 100 mcg tablet 75 mcg PO DAILY 30 days #23 tabs 02/17/23 [Rx Confirmed 03/04/23] Exam Physical Exam Vital Signs: Temp Pulse Resp BP Pulse Ox O2 Del Method 97.8 F 79 16 136/82 96 Room Air 03/05/23 07:36 03/05/23 11:49 03/05/23 11:49 03/05/23 11:49 03/05/23 11:49 03/05/23 11:49 Results Laboratory Findings 03/05/23 05:02 03/05/23 05:02 Diagnostic Findings Imaging/Impressions: ITS Impressions Head CT 03/04/23 15:48 IMPRESSION: No acute intracranial findings Preliminary findings given 0401 PM 03/04/2023 Impression dictated by: Aron Cross M.D.03/04/2023 4:08 PM Dictation Location: [place] [address] Chest X-Ray 03/04/23 16:02 IMPRESSION: No acute process. Impression dictated by: Aron Cross M.D.03/04/2023 4:51 PM Dictation Location: [facility]03 Therapy Recommendations Therapy Recommendations: OT Recommendations OT Recommended Discharge Home with Home Health Location OT Recommended Services at Physical Therapy Discharge PT Recommendations PT Recommended Discharge Home with Home Health Location PT Recommended Services at Physical Therapy Discharge Assessment/Plan (1) Intractable headache: Assessment/Problem Details: CONSULT REASON: Headache, right hemiparesis and sensory loss HPI: 62-year-old woman. She came to the ER with complaints of an intractable left- sided headache with right-sided sensory and motor symptoms. She is compliant with her migraine preventative medication. At the time of my encounter today, theright bodily symptoms have resolved but she still has a severe left-sided headache, which she describes as stabbing. She was just evaluated by neurology February 16, 2023 for a virtually identical syndrome. And prior to that, she was evaluated by neurology on January 27, 2023 for another similar syndrome, though that time left body rather than right. She had an MRI of her brain on February 15, 2023 that just showed chronic microvascular changes and no acute findings. Pertinenthome medications include clopidogrel 75 mg daily, cyclobenzaprine 10 mg twice daily, pregabalin 100 mg in the morning and 150 mg at night, Qulipta 60 mg daily, Ajovy monthly, among others. She follows with Dr. Figueroa and has previously been denied botulinum toxin injections for migraine. EXAMINATION: Well-kempt.? No distress.? No deformities or trauma.? Normal spinal curvature.? Limbs seem well-perfused.? No significant edema.? Normal work of breathing.? Visualized skin is generally intact and without lesions.? Affect normal.? Patient is alert and generally oriented.? Attention normal.? Speech is fluent and nondysarthric.? Right pupil is reactive.? Left corneal opacification and left eye deviated laterally. No nystagmus.? Facial sensation is normal.? Hearingis normal.? Facial strength is normal.? Tongue is midline.? Muscle bulk, tone, and strength are normal.? No tremors.? Reflexes normal throughout.? No pathologic reflexes.? Light touch is normal.? Vibratory sensation is normal. Normal rapidly alternating movements.? No limb dysmetria with ngjkpt-guxd-mduelgdmuwloz.? DATA REVIEW: -CT of head is unremarkable -Previous CTA head and neck shows calcified plaque in the intracranial segments of the internal carotid arteries with the worst narrowing being at the junction of the right ophthalmic segment and supraclinoid segment on the right, and also with focal narrowing at the origin of one of the M2 segments on the right, and focal narrowing of the left HYDRAMAT[employer] MECH[employer]IC at the P2/P3 junction. -MRI shows no acute intracranial pathology, but demonstrates remote lacunar infarctions in the deep lora nuclei ASSESSMENT: Right hemisensory/hemimotor symptoms have resolved. Severe left-sided stabbing headache persists. This event, along with her recent hospitalizations in January, all most likely demonstrate stroke like migrainous phenomena (a so-called complicated migraine). With the associated headache, TIA is less likely, thoughshe does have significant cerebrovascular risk factors that are appropriately addressed with medication. PLAN: 1.? Continue the aspirin 81 mg daily and clopidogrel 75 mg daily. 2.? She is statin intolerant even to low doses only administered a few times perweek. 3. For her current intractable headache, I will try a single dose of methylprednisolone 500 mg and then valproic acid 500 mg twice daily until discharge. Her vascular risk factors preclude her from having DHE or triptan medications. 4. Any additional intracranial imaging is unlikely to knife changer and thus is not necessary at this time Code(s): R51.9 - Headache, unspecified Status: Acute Documented By: Jean Mays DO 03/05/23 1415 Signed By: <Electronically signed by Jean Mays DO> 03/05/23 1431 [facility] Work Phone: 1(341) 525-134706-14-2023 History and physical note Author Karen Mar [facility] March 05, 2023 1:03am Note Date/Time March 04, 2023 6:53 pm [facility] [address] [place] [address] Hospitalist H&P Signed Patient: Jennifer Rothman MR#: [id number] : 1960 Acct:[id number] Age/Sex: 62 / F Adm Date: 3 Loc: 3T Room: [address] [place] [address] Type: ADM IN Attending Dr: Karen Mar MD Copies to: HANY Benton MD~ HPI DATE OF EXAMINATION: 03/04/23 CHIEF COMPLAINT: Right-sided weakness/numbness HISTORY OF PRESENT ILLNESS: Jennifer Rothman is a 62-year-old female with a past medical history significant for TIA, old lacunar infarct, diabetes, hypertension, hypothyroidism, migraines on preventative therapy who presented to the emergency department with complaints of right-sided weakness with intractable headache. She reports that she has hadan intractable headache for the past 24 hours despite taking her abortive medications for migraine headaches. She later developed right face, arm and legnumbness later this afternoon while sitting up in chair. She denies having any dizziness. She was seen and admitted twice this year, with most recent visit on02/15/2023 for right- sided weakness with negative work-up. She was seen and evaluated by neurology at the time who thought that symptoms might have been related to elevated blood. She was recommended to continue aspirin and Plavix and follow-up with outpatient neurology. She reports seeing her neurologist for follow-up appointment 2 days ago with no changes to medications. Currently she has a towel covered over her face, complaining of intractable headache without dizziness and visual changes. She reports that numbness to right side has significantly improved, on examination she was noted not to have any numbness. She denies chest pain or palpitation. No cough, dyspnea, or pain with inspiration. No abdominal pain or indigestion, constipation or diarrhea, nausea or vomiting. No dysuria or retention. No fevers Upon arrival to the ER head CT was negative for any acute intracranial findings. Blood pressure was noted to be elevated with systolic in the 200s and diastolicin the 100s. She was administered magnesium 2 g IV x1. Labetalol 10 mg IV push. Dilaudid 0.5 IV push x1. Tegretol 100 mg x 1. She will be admitted by the hospitalist team for further evaluation and treatment. Review of Systems Review of Systems Review of systems: 10 point review of systems obtained, negative unless noted in the HPI below [facility] Attestation Statement: The following information was validated with the patient. Source: Old Records Reviewed Vaccinated for COVID-19?: No Medical History Alopecia Anxiety disorder Autoimmune disease Alopecia Blind left eye Chronic back pain Conversion disorder Diabetes mellitus Type II HTN (hypertension) Hypothyroid Lacunar stroke Left nephrolithiasis Migraines Pyelonephritis TIA (transient ischemic attack) Surgical History H/O hernia repair History of bilateral carpal tunnel release History of ear surgery History of ureteroscopy kidney stone removal Hx of cholecystectomy Hx of rotator cuff surgery bilateral Previous section Family History Father Prostate CA Diabetes Heart valve replaced Mother Hypertension Dementia High cholesterol Social History Smoking Status: Never smoker Substance Use Type: None Meds Medications and Allergies Allergies Rypyhzv-VGG-AxQ Reductase Inhibitor Adverse Reaction (Mild, Verified 03/04/23 15:51) Unknown Reaction Home Medications clopidogrel 75 mg tablet (Plavix) 75 mg PO DAILY hx tia 11/02/17 [History Confirmed 03/04/23] lisinopril 10 mg tablet (Zestril) 10 mg PO QAM htn 11/02/17 [History Confirmed 03/04/23] metformin 1,000 mg tablet 1,000 mg PO BID DM 11/02/17 [History Confirmed 03/04/23] flaxseed oil 1,000 mg capsule 1,000 mg PO BID 03/08/19 [History Confirmed 03/04/23] magnesium 250 mg tablet 500 mg PO DAILY 03/08/19 [History Confirmed 03/04/23] cyclobenzaprine 10 mg tablet 10 mg PO BID 12/15/21 [History Confirmed 03/04/23] semaglutide 1 mg/dose (4 mg/3 mL) subcutaneous pen injector (Ozempic) 2 mg subcut DIRECTED 12/15/21 [History Confirmed 03/04/23] cholecalciferol (vitamin D3) 25 mcg (1,000 unit) tablet (Vitamin D3) 1,000 unit PO DAILY 12/21/21 [History Confirmed 03/04/23] niacin 500 mg tablet (Niacor) 1,000 mg PO BID 12/21/21 [History Confirmed 03/04/23] pregabalin 100 mg capsule (Lyrica) 100 mg PO QAM 12/21/21 [History Confirmed 03/04/23] pregabalin 50 mg capsule (Lyrica) 150 mg PO QHS 12/21/21 [History Confirmed 03/04/23] vitamin B complex 1 cap PO DAILY 12/21/21 [History Confirmed 03/04/23] atogepant 60 mg tablet (Qulipta) 60 mg PO DAILY 12/03/22 [History Confirmed 03/04/23] fremanezumab-vfrm 225 mg/1.5 mL subcutaneous syringe (Ajovy Syringe) See Rx Instructions .Route .COMPLEX 01/26/23 [History Confirmed 03/04/23] aspirin 81 mg capsule 81 mg PO DAILY #90 caps 01/27/23 [Rx Confirmed 03/04/23] calcium 600 mg capsule 600 mg PO DAILY 01/27/23 [History Confirmed 03/04/23] cyanocobalamin (vitamin B-12) 1,000 mcg/mL injection solution 1,000 mcg subcut QWEEK 4 weeks #4 mL 02/17/23 [Rx Confirmed 03/04/23] levothyroxine 100 mcg tablet 75 mcg PO DAILY 30 days #23 tabs 02/17/23 [Rx Confirmed 03/04/23] Exam Physical Exam Vital Signs: Temp Pulse Resp BP Pulse Ox O2 Del Method 97.5 F L 77 20 183/91 H 98 Room Air 03/04/23 15:52 03/04/23 18:01 03/04/23 18:01 03/04/23 18:01 03/04/23 18:01 03/04/23 18:01 Narrative: CONST-awake, alert HEAD - Normocephalic and atraumatic EENT-Sclera nonicteric and conjunctive are nonerythemic, moist oral mucosa, pharynx clear NECK-Supple, no cervical lymphadenopathy CARDIAC-normal rate, regular rhythm, normal S1 & S2. PULM-diminished without wheeze or rhonchi, RA, no accessory muscle use or cough noted ABD - Soft. Bowel sounds are normal. Obese no tenderness EXTREM-no edema BLE calves nontender SKIN- W/D good turgor MS- MAEX4 spontaneously with equal with equal strength NEURO- A&Ox3 speech clear and tongue midline, equal facial symmetry no focal motor deficits PSYCH-Mood, affect and behavior appropriate Results Lab Results Labs: Laboratory Last Values Corrected WBC 6.9 X10E3/uL (3.8-11.6) 03/04/23 15:53 Uncorrected WBC Count 6.9 x10E3/uL (3.8-11.6) 03/04/23 15:53 RBC 4.73 X10E6/uL (3.60-5.00) 03/04/23 15:53 Hgb 13.4 g/dL (11.8-15.4) 03/04/23 15:53 Hct 41.1 % (34.0-46.4) 03/04/23 15:53 MCV 86.9 fl (80-100) 03/04/23 15:53 MCH 28.4 pg (24.7-34.3) 03/04/23 15:53 MCHC 32.6 g/dL (32.0-35.0) 03/04/23 15:53 RDW 13.8 % (11.9-15.3) 03/04/23 15:53 Plt Count 253 x10E3/uL (150-450) 03/04/23 15:53 MPV 8.5 fl (6.3-10.7) 03/04/23 15:53 Neut % (Auto) 63.7 % (.) 03/04/23 15:53 Lymph % (Auto) 26.6 % (.) 03/04/23 15:53 Bledsoe % (Auto) 6.3 % (.) 03/04/23 15:53 Eos % (Auto) 2.8 % (.) 03/04/23 15:53 Baso % (Auto) 0.6 % (.) 03/04/23 15:53 Nucleat RBC Rel Count 0.1 /100 WBC (0-0.5) 03/04/23 15:53 Neut # (Auto) 4.4 x10E3/uL (1.8-7.7) 03/04/23 15:53 Lymph # (Auto) 1.8 x10E3/uL (1.00-4.8) 03/04/23 15:53 Bledsoe # (Auto) 0.4 x10E3/uL (0.0-0.8) 03/04/23 15:53 Eos # (Auto) 0.2 x10E3/uL (0.0-0.45) 03/04/23 15:53 Baso # (Auto) 0.0 x10E3/uL (0.0-0.2) 03/04/23 15:53 Monocyte Dist Width 16.66 % (0.00-20.00) 03/04/23 15:53 PT 11.4 Seconds (9.0-12.9) 03/04/23 15:53 INR 1.0 03/04/23 15:53 APTT 33.7 Seconds (25.1-36.5) 03/04/23 15:53 PHA Creatinine Clear 109.56 03/04/23 15:53 Sodium 139 mmol/L (136-145) 03/04/23 15:53 Potassium 3.8 mmol/L (3.5-5.1) 03/04/23 15:53 Chloride 103 mmol/L (98-107) 03/04/23 15:53 Carbon Dioxide 26.5 mmol/L (21.0-31.0) 03/04/23 15:53 Anion Gap 13.3 mEq/L (6.0-15.0) 03/04/23 15:53 BUN 8 mg/dL (7-25) 03/04/23 15:53 Creatinine 0.61 mg/dL (0.60-1.20) 03/04/23 15:53 Est GFR (CKD-EPI) > 60.0 mL/Min 03/04/23 15:53 Glucose 118 mg/dL (70-100) H 03/04/23 15:53 Calcium 9.1 mg/dL (8.6-10.3) 03/04/23 15:53 Total Bilirubin 0.5 mg/dl (0.3-1.0) 03/04/23 15:53 AST 18 U/L (13-39) 03/04/23 15:53 ALT 19 U/L (7-52) 03/04/23 15:53 Alkaline Phosphatase 75 U/L (34-104) 03/04/23 15:53 Total Creatine Kinase 54 U/L (30-223) 03/04/23 15:53 Troponin I High Sens 3.4 pg/mL (0.0-15.0) 03/04/23 15:53 Total Protein 6.4 gm/dL (6.4-8.9) 03/04/23 15:53 Albumin 4.4 gm/dL (3.5-5.7) 03/04/23 15:53 Globulin 2.0 gm/dL 03/04/23 15:53 Albumin/Globulin Ratio 2.2 03/04/23 15:53 Assessment & Plan Assessment/Plan (1) Right sided weakness: (2) Uncontrolled hypertension: (3) Intractable headache: Plan Right-sided weakness/numbness History of CVA and TIA Intractable headache Uncontrolled hypertension P/w with concerns of right-sided weakness/numbness which started this afternoon and intractable headache in the past 24 hours. Was noted to have uncontrolled hypertension. Numbness is significantly improved, could be related to intractable headache. ?CT brain did not show any acute intracranial process ?We will defer MRI to neurology ?Lipid panel on 01/27 with LDL 106, cholesterol 177 A1c 6.2. Echocardiogram 01/26 EF of 65% ?We will resume lisinopril for blood pressure and as needed hydralazine ? Continue Qulipta,pain and nausea medication as needed ?PT/OT Chronic conditions 1.Migraines- monthly Ajovy, continue Qulipta 2.Hypothyroid- levothyroxine.? 3 DM type II-we will hold metformin. Start long-acting insulin, SSI, last A1c of 6.2 4.Chronic back pain-we will hold off cyclobenzaprine for now CODE STATUS full code DVT prophylaxis: Lovenox Attending Physician Attestation: I personally saw this patient on the day of the encounter, reviewed the history,performed the arcos elements of the exam, formulated the plan of care and confirmed the written note. I agree with the findings and plan as documented in this note and have edited it if needed to reflect my findings and plan. Karen Mar MD IP vs OBS Justification Based on differential dx, clinical care plan, and risk of adverse events, if untreated, in my clinical judgement this patient requires an acute care setting as: OBSERVATION because of an expectation of an under 2 midnight stay. Estimated length of stay (# of days): 2 Documented By: Dorys Palacios APRN 03/04/231834 Signed By: <Electronically signed by HANY Palacios> 03/04/23 191 <Electronically signed by Karen Mar MD> 03/05/[address] [facility] Work Phone: 1(478) 806-376706-06-2023 Evaluation note* Encounter Date Diagnosis Assessment Notes Treatment Notes Treatment Clinical Notes Feb, Hospital discharge follow-up (ICD-10 - Z09) Feb, Right sided weakness (ICD-10 - R53.1) Feb, Vitamin B12 deficiency (ICD-10 - E53.8) Feb, Other I reviewed her hospital records, we discussed this at length. She had a very appropriate evaluation for CVA/TIA that was remarkable only for vitamin B12 deficiency. I do not think this accounts for all of her symptoms, but she was started on vitamin B12 replacement nonetheless. I will discuss her case by phone with neurology, and will work to help facilitate tertiary center evaluation for her symptoms. Patient was pleased with this approach. [facility] Other 06-06-2023 Evaluation note* Encounter Date Diagnosis Assessment Notes Treatment Notes Treatment Clinical Notes Feb, Stroke-like symptoms (ICD-10 - R29.90) [facility] Other 05-30-2023 Evaluation note* Encounter Date Diagnosis Assessment Notes Treatment Notes Treatment Clinical Notes January, Lumbosacral spondylosis (ICD-10 - M47.817) I independently reviewed the MRI of the lumbar spine face to face with patient and family, which shows there is a broad disc space bulge with mild spinal canal narrowing and mild bilateral neuroforaminal narrowing at the L5-S1. There is a 4 mm anterolisthesis of L4 upon L5, disc bulge with moderate spinal canal narrowing and mild bilateral neuroforaminal narrowing. Similar to previous MRI in 2020. Education completed, will continue with conservative therapy of physical therapy, pharmacological management and pain management. Patient is not currently a surgical candidate at this time. We will follow-up in 6 months or if symptoms change. January, Chronic pain (ICD-10 - G89.29) January, Sacroiliitis (ICD-10 - M46.1) January, Encounter for screening for depression (ICD-10 - Z13.31) PHQ reviewed and scored a 0 negative screening January, BMI 37.0-37.9, adult (ICD-10 - Z68.37) Education completed on diet, decreased sugar intake [facility] Other 05-29-2023 Discharge summary Author Ibis Andersen [facility] February 17, 2023 10:15am Note Date/Time February 17, 2023 10:15 am [facility] [address] [place], [place] [id number] Discharge Summary Signed Patient: Jennifer Rothman MR#: [id number] : 1960 Acct:[id number] Age/Sex: 62 / F Adm Date: 3 Loc: 4N Room: [address] [place] [address]: Ibis Andersen MD Copies to: Isidro Cantu MD~ Providers Date of Discharge: 02/17/23 Discharging Provider: Ibis Andersen Primary Care Provider: Isidro Gonzalez Consults: 02/15/23 10:51 Consult to Neurology Routine 02/15/23 11:24 Consult to Occupational Therapy Routine Consult to Physical Therapy Routine Consult to Speech Therapy Routine Discharge Diagnosis (1) Lower extremity weakness: (2) Type 2 diabetes mellitus: (3) HTN (hypertension): (4) B12 deficiency: Final Diagnosis Final Discharge Diagnosis: As above Summary Hospital Course Hospital course: Patient is a pleasant 62-year-old female with past medical history of diabetes mellitus type 2, hypertension, hypothyroidism, migraine headache and other medical comorbidities. She was recently discharged from the hospital when admitted for TIA and aspirin was added to Plavix. Patient again presented to ERwith complaint of right-sided weakness and numbness. She was kept in the hospital due to concern for stroke and neurology was consulted. MRI brain and CT head and neck did not show any acute abnormality. She was continued on dual antiplatelet and found to have B12 deficiency. She has been started on B12 supplement and will require outpatient follow-up with her primary care provider. She will also require outpatient neurology follow-up. Blood pressure has been well controlled and will continue her lisinopril. She will require outpatient follow-up regarding close monitoring for blood pressure and strict diabetic control to minimize risk of further stroke. We will also recommend sleep study if not done before. Patient is feeling significantly better and would like to go home. She already has home health set up from a previous discharge and currently does not want to go to inpatient rehab or [facility] facility. Given her improved symptoms she will be discharged home. Dose of levothyroxine has been decreased due to low TSH. Condition Condition at Discharge: Stable Status at Discharge Functional status at discharge: independent ambulation Overall status at discharge: patient is back to baseline Time Spent with Patient Time spent providing/coordinating discharge services (# min): 20 Exam Physical Exam Vital Signs: Temp Pulse Resp BP Pulse Ox O2 Del Method 97.8 F 98 H 16 130/83 96 Room Air 02/17/23 08:00 02/17/23 08:00 02/17/23 08:00 02/17/23 08:00 02/17/23 08:00 02/17/23 08:00 Const Orientation: alert, awake and oriented x3 Resp Effort & Inspection: normal respiratory effort and able to speak in complete sentences Auscultation: no rales, no rhonchi and no wheezes Cardio Rate: regular rate Rhythm: regular rhythm Heart Sounds: S1 normal and S2 normal GI Palpation: soft, not firm, no guarding and nontender Neuro General: patient alert, patient awake, patient oriented x3, moves all extremities and no focal motor deficits Cranial Nerves: CN's II-XII intact bilaterally Cognition: normal cognition Speech: speech normal Motor: muscle tone normal throughout and strength 5/5 throughout Sensory Exam: no sensory deficits noted Discharge Plan Discharge Plan Patient Disposition: Home Health Services Activity: No Activity Restriction Diet: Regular Additional Instructions: Home Health to manage care: - Full code - PT/OT eval and treat - Routine vital signs - Medication management and education - Prescriptions: New cyanocobalamin (vitamin B-12) 1,000 mcg/mL Solution 1,000 mcg subcut QWEEK 28 Days Qty: 4 0RF Continued cyclobenzaprine 10 mg tablet 10 mg PO BID Ozempic 1 mg/dose (4 mg/3 mL) pen injector 2 mg SUBCUT DIRECTED Rx Instructions: INJECT 1 MG SUBCUTANEOUSLY ONCE WEEKLY DIRECTED pregabalin [Lyrica] 50 mg capsule 150 mg PO QHS pregabalin [Lyrica] 100 mg capsule 100 mg PO QAM Rx Instructions: take 100mg qam and 150mg qhs. niacin [Niacor] 500 mg Tablet 1,000 mg PO BID Rx Instructions: takes 2 tabs BID vitamin B complex Capsule 1 cap PO DAILY cholecalciferol (vitamin D3) [Vitamin D3] 25 mcg (1,000 unit) Tablet 1,000 unit PO DAILY clopidogrel [Plavix] 75 mg Tablet 75 mg PO DAILY metformin 1,000 mg Tablet 1,000 mg PO BID lisinopril [Zestril] 10 mg Tablet 10 mg PO QAM flaxseed oil 1,000 mg Capsule 1,000 mg PO BID magnesium 250 mg Tablet 500 mg PO DAILY Qulipta 60 mg tablet 60 mg PO DAILY Patient Comments: TAKE 1 TABLET BY MOUTH EVERY DAY Ajovy Syringe 225 mg/1.5 mL syringe See Rx Instructions .ROUTE .COMPLEX Patient Comments: INJECT 1.5ML SUBCUTANEOUSLY ONCE MONTHLY Rx Instructions: mg subcutaneously calcium 600 mg Capsule 600 mg PO DAILY aspirin 81 mg capsule 81 mg PO DAILY Qty: 90 0RF Changed levothyroxine 100 mcg Tablet 75 mcg PO DAILY 30 Days Qty: 23 0RF Other Ambulatory Orders: Initiate Home Health (Routine) Timeframe: 1 Day Location: Determined by Patient Ordered By: Munir Ennis Follow Up: Isidro Gonzalez DO [Primary Care Provider] - (Call office on Friday to schedule follow-up with your Primary Care Provider in 3-5 days. ) Virgilio Trevizo DO [Courtesy/Consulting Physician] - (Call office on Friday to schedule follow-up with Neurologist. ) Documented By: Ibis Andersen MD 02/17/23 1009 Signed By: <Electronically signed by Ibis Andersen MD> 02/17/[address] [facility] Work Phone: 1(205) 114-906305-28-2023 Progress note Author Dillon Trevizo [facility] February 16, 2023 10:40am Note Date/Time February 16, 2023 9:46a m [facility] [address] [place] [address] Neurology Progress Note Signed Patient: Jennifer Rothman MR#: [id number] : 1960 Acct:[id number] Age/Sex: 62 / F Adm Date: 3 Loc: 4N Room: [address] [place] [address] Type: ADM INOo Attending Dr: Munir Ennis MD Copies to: ~ Date of Service: 02/16/2023 Subjective Subjective Narrative: I saw the patient today in follow-up. The patient's symptoms of right face, right arm and right leg paresthesias and weakness appear to be resolved and pt tells me she is at baseline. The primary service also notes the improvement. Patient did have a MRI yesterday. No acute events overnight. Patient denies abdominal pain, headache, vision change, hot or cold feeling, shortness of breath or chest pain. Review of Systems Review of Systems All other systems reviewed & are negative unless noted below or in HPI Exam Physical Exam Vital Signs: Temp Pulse Resp BP Pulse Ox O2 Del Method 98.0 F 88 18 134/83 96 Room Air 02/16/23 07:27 02/16/23 07:27 02/16/23 07:27 02/16/23 07:27 02/16/23 07:27 02/16/23 07:27 Narrative: Narrative: GENERAL EXAM: Patient is alert and oriented x3. In general the patient is well-appearing. NEURO EXAM: Cranial nerve II. Vision is intact. Pupils are equal Cranial nerve III, IV and . Extraocular muscles are intact. No nystagmus is appreciated Cranial nerve V and VII. No facial asymmetry is appreciated. Temperature and pinprick is equal bilaterally Cranial nerve VIII hearing is intact Cranial nerve IX and X speech is clear fluent. Palate elevates symmetrically Cranial nerve XI head turn side to side full range of motion. Shoulder shrug isequal bilaterally Cranial nerve XII tongue is midline full range of motion MOTOR EXAM: Strength is 5/5 throughout other than the right lower extremity which does show drift but is improved since yesterday. No pronator drift was appreciated Muscle tone and bulk are normal SENSORY EXAM: Intact x 4 ext to light touch CEREBELLAR EXAM: Alternating movements are intact. Finger to nose normal Gait not assessed Objective Vital Signs Vital Signs: Vital Signs - 24 hr 02/15/23 13:11 02/15/23 13:19 02/15/23 16:56 Temperature 97.8 F 98.1 F Pulse Rate 75 75 Respiratory Rate 18 19 Blood Pressure 143/86 H 150/85 H Blood Pressure [Right Arm] 133/83 02 Sat by Pulse Oximetry 97 97 Oxygen Delivery Method Room Air Room Air 02/15/23 20:32 02/16/23 00:06 02/15/23 20:00 Temperature 98.2 F 97.7 F Pulse Rate 81 69 Respiratory Rate 18 18 Blood Pressure 165/99 H 132/84 Blood Pressure [Right Arm] 02 Sat by Pulse Oximetry 96 97 Oxygen Delivery Method Room Air Room Air Room Air 02/16/23 03:23 02/16/23 07:27 Temperature 97.9 F 98.0 F Pulse Rate 89 88 Respiratory Rate 18 18 Blood Pressure 137/79 134/83 Blood Pressure [Right Arm] 02 Sat by Pulse Oximetry 93 L 96 Oxygen Delivery Method Room Air Room Air Labs 02/16/23 05:14 02/16/23 05:14 Therapy Recommendations Therapy Recommendations: OT Recommendations OT Recommended Discharge Home with Home Health Location OT Recommended Services at Physical Therapy,Occupational Therapy Discharge PT Recommendations PT Recommended Discharge Home with Home Health Location PT Recommended Services at Physical Therapy Discharge ST Recommendations Level of Supervision Intermittent Supervision Liquid Consistency Thin Liquids Recommendation Solid Consistency Regular Solids Recommendations Meat Consistency Whole Meats Recommendations Medication Administration Give Pills with Water Dysphagia Swallow Precautions/ Small Bites/Sips,Alternate Liquids/Solids Strategies Assessment/Plan (1) Lower extremity weakness: Code(s): R29.898 - Other symptoms and signs involving the musculoskeletal system Status: Acute (2) Type 2 diabetes mellitus: Code(s): E11.9 - Type 2 diabetes mellitus without complications Status: Chronic (3) HTN (hypertension): Code(s): I10 - Essential (primary) hypertension Status: Acute Plan It is my impression that the patient has right lower extremity weakness. The weakness seems to be fluctuating. The patient was admitted for similar symptomsapproximately 3 to 4 weeks ago. Patient is on dual antiplatelet therapy at homeand is unable to tolerate statin medications. Patient was not a tPA or interventional candidate. Symptoms improving overnight. Work-up: CT of the brain without contrast: Unremarkable CT angiogram of the head and neck: Unremarkable for occlusion, aneurysm or dissection Hemoglobin A1c: 6.2?patient is a known diabetic and this is managed in the outpatient setting LDL: 106?patient intolerant to statin medications 2D echocardiogram: No evidence of mass, vegetation or thrombus MRI of the lumbar spine on 02/13/2023: There is anterolisthesis of L4 upon L5 with facet arthropathy and moderate canal narrowing with bilateral mild neural foraminal narrowing. She does have lumbar changes being evaluated by the neurosurgical team MRI of the brain without contrast: Unremarkable for acute change. Plan: B12 was found to be low and can replaced via 1000 mcg injection here today in the hospital. In the outpatient setting the patient would benefit from intramuscular B12 injection once likely for 4 weeks then once monthly for 5 months. This can be completed with her primary care team. Again, the constellation of patient's symptoms with face arm and leg involvementwould be intracranial in nature. MRI is unremarkable for cause. The patient did have a quite elevated blood pressure at the time of presentation and certainly the elevated blood pressure could have led to some focal neurologic abnormalities. I suggest aggressive normalization of blood pressure, aggressivephysical and occupational therapy. Patient can follow with the neurology clinicin the outpatient setting. Please call with further questions or concerns. Continue aspirin and Plavix Patient intolerant to statins I would normalization of blood pressure in light of unremarkable MRI. PT and OT for right lower extremity weakness Documented By: Dillon Trevizo DO 3 0943 Signed By: <Electronically signed by Dillon Trevizo DO> 02/16/23 1040 [facility] Work Phone: 1([phone] 482-982405-28-2023 Progress note Author Munir Ennis [facility] February 16, 2023 8:43am Note Date/Time February 16, 2023 8:43a m [facility] [address] [place] [address] Hospitalist Progress Note Signed Patient: Jennifer Rothman MR#: [id number] : 1960 Acct:[id number] Age/Sex: 62 / F Adm Date: 3 Loc: Room: [address] [place] [address] Type: ADM INOo Attending Dr: Munir Ennis MD Copies to: ~ Date of Service: 02/16/2023 Subjective Subjective Narrative: Patient reported that her right arm and leg weakness improved since yesterday. No slurred speech. No fever or chills. No chest pain palpitation Exam Physical Exam Vital Signs: Temp Pulse Resp BP Pulse Ox O2 Del Method 98.0 F 88 18 134/83 96 Room Air 02/16/23 07:27 02/16/23 07:27 02/16/23 07:27 02/16/23 07:27 02/16/23 07:27 02/16/23 07:27 Narrative: [pt is awake and alert. oriented to place, time and person, obese HEENT: [place] conjunctiva and NL buccal mucosa Neck: Supple, no tenderness Endocrine: No Thyromegaly. Vascular: No JVD or carotid bruit. Lymphatic: No cervical lymphadenopathy. Chest: CTA no DTP. Heart RRR, no extra sound or murmur. Abd: Soft, no tenderness, no rebound and no rigidity. Increase abd girth therefore clinically I could not exclude the possibility of intra abd mass or organomegaly. LE: No cyanosis or clubbing, no varices or edema. Neuro: A A O. Nl speech, comprehension and attention. Resolution of the numbing sensation involving the right arm and leg. Right arm strength is 5/5. Right leg strength proximally is 4/5 patient is able to lift up against gravity and mild resistance for more than 5 seconds. Patient is unable to lift against moderate resistance. []] Objective Lab Results 02/16/23 05:14 02/16/23 05:14 Meds Allergies and Active Meds Allergies Zztnhla-TYL-SiN Reductase Inhibitor Adverse Reaction (Mild, Verified 02/15/23 11:41) Unknown Reaction Active Meds: Active Medications Generic Name Dose Route Start Last Admin Trade Name Freq PRN Reason Stop Dose Admin Acetaminophen 650 mg 02/15/23 11:24 02/16/23 08:35 Acetaminophen 325 Mg Tablet PO 02/15/24 11:23 650 mg Q6HR PRN Administration Pain Scale 1 - 3 or fever Aspirin 81 mg 02/15/23 12:15 02/16/23 08:35 Aspirin 81 Mg Tablet. PO 02/15/24 12:14 81 mg DAILY MARY Administration Calcium Carbonate 500 mg 02/16/23 09:00 02/16/23 08:35 Calcium Carbonate 500 Mg Tablet PO 02/16/24 08:59 500 mg DAILY MARY Administration Clopidogrel Bisulfate 75 mg 02/15/23 12:15 02/16/23 08:35 Clopidogrel Bisulfate 75 Mg Tablet PO 02/15/24 12:14 75 mg DAILY MARY Administration Cyclobenzaprine HCl 5 mg 02/16/23 09:00 Cyclobenzaprine 5 Mg Tablet PO 02/16/24 08:59 BID MARY Enoxaparin Sodium 40 mg 02/16/23 10:00 Enoxaparin 40 Mg/0.4 Ml Syringe SUBCUT 02/16/24 09:59 DAILY@10 MARY Hydralazine HCl 10 mg 02/15/23 11:24 Hydralazine 20 Mg/Ml Vial IV-PUSH 02/15/24 11:23 Q4H PRN Hypertension Hydralazine HCl 10 mg 02/15/23 12:45 Hydralazine 20 Mg/Ml Vial IV-PUSH 02/15/24 12:44 Q4H PRN Blood Pressure - High Levothyroxine Sodium 75 mcg 02/17/23 06:30 Levothyroxine 75 Mcg Tablet PO 02/17/24 06:29 DAILY.0630 MARY Lisinopril 10 mg 02/15/23 12:15 02/16/23 08:36 Lisinopril 10 Mg Tablet PO 02/15/24 12:14 10 mg QAM MARY Administration Lorazepam 1 mg 02/15/23 11:37 02/15/23 12:19 Lorazepam 2 Mg/Ml Vial IV-PUSH 08/14/23 11:36 1 mg ONCE PRN Administration anxiety Magnesium Oxide 400 mg 02/15/23 12:15 02/16/23 08:35 Magnesium Oxide 400 Mg Tablet PO 02/15/24 12:14 400 mg DAILY MARY Administration Metformin HCl 1,000 mg 02/17/23 17:00 Metformin 500 Mg Tablet PO 02/17/24 16:59 BID.WITH.MEALS MARY Niacin 1,000 mg 02/15/23 21:00 02/16/23 08:35 Niacin 500 Mg Tablet PO 02/15/24 20:59 1,000 mg BID MARY Administration Non-Formulary Medication 60 mg 02/15/23 11:45 Atogepant [Qulipta] PO 02/15/24 11:44 DAILY MARY Non-Formulary Medication 2 mg 02/15/23 11:45 Semaglutide [Ozempic] SUBCUT 02/15/24 11:44 DIRECTED MARY Ondansetron HCl 4 mg 02/15/23 11:24 Ondansetron 4 Mg/2 Ml Vial IV-PUSH 02/15/24 11:23 Q8H PRN Nausea And Vomiting Pantoprazole Sodium 40 mg 02/15/23 11:30 02/16/23 08:35 Pantoprazole 40 Mg Tablet.Dr PO 02/15/24 11:29 40 mg DAILY MARY Administration Pregabalin 100 mg 02/16/23 22:00 Pregabalin 100 Mg Capsule PO 08/15/23 21:59 QHS MARY Pregabalin 75 mg 02/16/23 09:00 Pregabalin 75 Mg Capsule PO 08/15/23 08:59 QAM MARY Sodium Chloride 0 ml 02/15/23 06:19 02/15/23 06:24 Sodium Chloride 0.9 % 10 Ml Syringe IV-PUSH 02/15/24 06:18 10 ml PRN PRN Administration Flush Vitamin D 25 mcg 02/16/23 09:00 02/16/23 08:36 Cholecalciferol 25 Mcg (1,000 Units) Tablet PO 02/16/24 08:59 25 mcg DAILY MARY Administration A&P - Hospitalist Assessment/Plan (1) Right sided weakness: (2) History of TIA (transient ischemic attack): (3) History of CVA (cerebrovascular accident): (4) Hyperlipidemia: (5) Uncontrolled hypertension: (6) Migraines: (7) Chronic back pain: (8) Hypothyroid: (9) Type 2 diabetes mellitus: Plan TIA Right sided weakness/ numbness Hx prior CVA and TIA Hyperlipidemia Uncontrolled hypertension -Neurology consult appreciated, d/w Dr Trevizo -MRI brain showed chronic changes. No acute changes -defer echo lipid and A1c as d/w Dr Trevizo with recent workup 01/26 - A1c was 6.2, Chol 177/ LDL 106. Echo 01/26-EF 65%, normal LV, LVDD -therapy evaluation -CTA head and neck did not show any vascular compromise -has not taken home dose of antihypertensive meds, resume Lisinopril now and adjust as indicated. PRN Hydralazine -continues DAPT therapy ASA and Clopidogrel, patient is intolerant to statin as documented, on Niacin and Flaxseed -Telemetry monitoring over the last 24 hours does not show any A-fib. Defer further needed diagnostic and therapeutic and ablation related to her neurological status and the timing of these interventions to neurology team. I will follow his recommendations chronic conditions 1. Migraines- monthly Ajovy taken last , Qulipta 2. Chronic back pain- cyclobenzaprine, pregabalin- currently following with NSGY outpatient and recent lumbar MRI 02/13 3. Hypothyroid- levothyroxine. TSH is suppressed. I reduced her levothyroxinedose from 100 down to 75 mcg 4. DM- metformin, Ozempic last taken last Fri. A1c 6.2% 01/27/23. I added sliding scale, Accu-Chek before meals and at bedtime CODE status- FULL as d/w patient, no visitors present DVT ppx- Enoxaparin Patient may benefit from inpatient rehab. I would like discussed with the case management team Documented By: Munir Ennis MD 02/16/23 0840 Signed By: <Electronically signed by Muinr Ennis MD> 02/16/[address] [facility] Work Phone: [phone]) 852-648905-27-2023 History and physical note Author Munir Ennis [facility] February 15, 2023 1:01pm Note Date/Time February 15, 2023 11:00 am [facility] [address] [place] [address] Hospitalist H&P Signed with Addenda Patient: Jennifer Rothman MR#: [id number] : 1960 Acct:[id number] Age/Sex: 62 / F Adm Date: 3 Loc: Room: [address] [place] [address] Type: ADM INOo Attending Dr: Munir Ennis MD Copies to: Isidro Roa, ANP-BC Munir Ennis MD~ ADDENDUM1 I have personally seen and evaluated patient. I have personally obtained the keyand critical portions of history and performed significant and pertinent segmentof physical exam. I have formulated the assessment and plan portion of care as documented by LYNETTE. I reviewed and discussed findings with pt. Defer further needed diagnostic and therapeutic intervention related to neurological status and the timing of these interventions to the neurology team given his expertise. I will follow his guidance Continue dual antiplatelet treatment Continue telemetry monitoring rule out any cardiac dysrhythmia such as A-fib which may be causing embolic stroke. Consider other etiologies for her neurological symptoms which may include but not limited to atypical migraine, atypical seizure, psychosomatic and such. Addendum Documented By: Munir Ennis MD 02/15/23 1301 Addendum Signed By: <Electronically signed by Munir Ennis MD> 02/15/23 1301 HPI DATE OF EXAMINATION: 02/15/23 HISTORY OF PRESENT ILLNESS: 62-year-old female past medical history significant for diabetes, hypertension, hypothyroid, migraines on preventative therapy, history of TIA and old lacunar infarct. Patient presented to the emergency department this morning with symptoms of awakening with right-sided weakness and numbness. She was reported while when she went to bed last night around 9 PM. 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 She is on dual antiplatelet therapy but intolerant to statin does not justify for PCSK9 inhibitor with LDL at 106. Work-up was undertaken in the emergency department. Presenting vital signs HR 79, RR 16, O2 saturation 97% on room air, BP 194/97, temp 97.2. CBC normal. Coags normal. CMP normal other than glucose mildly elevated at 115. Chest x-ray nonacute. CT head chronic microvascular disease, nonacute. Head/neck CTA no significant vascular findings. EKG sinus rhythm rate 72 with nonspecific T wave abnormality. Patient seen and examined. No visitors are present. Offers only complaint of right sided weakness and numbness/ tingling which also affects right face/ mouth. Denies chest pain or palpitations. No cough, dyspnea, or pain with inspiration. No abdominal pain or indigestion, constipation or diarrhea, nauseaor vomiting. No dysuria or retention. No headache or dizziness. No fevers or chills. She indicates she uses cane at home for ambulation. She adds that she also is currently following with neurosurgery for workup of back problems and MRI recently completed lumbar spine 02/13. Review of Systems Review of Systems All other systems reviewed & are negative unless noted below or in HPI [facility] Attestation Statement: The following information was validated with the patient. Vaccinated for COVID-19?: No Medical History (Updated 02/15/23 @ 12:06 by LELAND Amin-HERNAN) Alopecia Anxiety disorder Autoimmune disease Alopecia Blind left eye Chronic back pain Conversion disorder Diabetes mellitus Type II HTN (hypertension) Hypothyroid Lacunar stroke Left nephrolithiasis Migraines Pyelonephritis TIA (transient ischemic attack) Surgical History H/O hernia repair History of bilateral carpal tunnel release History of ear surgery History of ureteroscopy kidney stone removal Hx of cholecystectomy Hx of rotator cuff surgery bilateral Previous section Family History Father Prostate CA Diabetes Heart valve replaced Mother Hypertension Dementia High cholesterol Social History Smoking Status: Never smoker Substance Use Type: None Meds Medications and Allergies Allergies Axayfjs-ITK-TeM Reductase Inhibitor Adverse Reaction (Mild, Verified 02/15/23 11:41) Unknown Reaction Home Medications clopidogrel 75 mg tablet (Plavix) 75 mg PO DAILY hx tia 11/02/17 [History Confirmed 02/15/23] lisinopril 10 mg tablet (Zestril) 10 mg PO QAM htn 11/02/17 [History Confirmed 02/15/23] metformin 1,000 mg tablet 1,000 mg PO BID DM 11/02/17 [History Confirmed 02/15/23] flaxseed oil 1,000 mg capsule 1,000 mg PO BID 03/08/19 [History Confirmed 02/15/23] magnesium 250 mg tablet 500 mg PO DAILY 03/08/19 [History Confirmed 02/15/23] cyclobenzaprine 10 mg tablet 10 mg PO BID 12/15/21 [History Confirmed 02/15/23] semaglutide 1 mg/dose (4 mg/3 mL) subcutaneous pen injector (Ozempic) 2 mg subcut DIRECTED 12/15/21 [History Confirmed 02/15/23] cholecalciferol (vitamin D3) 25 mcg (1,000 unit) tablet (Vitamin D3) 1,000 unit PO DAILY 12/21/21 [History Confirmed 02/15/23] niacin 500 mg tablet (Niacor) 1,000 mg PO BID 12/21/21 [History Confirmed 02/15/23] pregabalin 100 mg capsule (Lyrica) 100 mg PO QAM 12/21/21 [History Confirmed 02/15/23] pregabalin 50 mg capsule (Lyrica) 150 mg PO QHS 12/21/21 [History Confirmed 02/15/23] vitamin B complex 1 cap PO DAILY 12/21/21 [History Confirmed 02/15/23] atogepant 60 mg tablet (Qulipta) 60 mg PO DAILY 12/03/22 [History Confirmed 02/15/23] fremanezumab-vfrm 225 mg/1.5 mL subcutaneous syringe (Ajovy Syringe) See Rx Instructions .Route .COMPLEX 01/26/23 [History Confirmed 02/15/23] aspirin 81 mg capsule 81 mg PO DAILY #90 caps 01/27/23 [Rx Confirmed 02/15/23] calcium 600 mg capsule 600 mg PO DAILY 01/27/23 [History Confirmed 02/15/23] levothyroxine 100 mcg tablet 100 mcg PO DAILY 01/27/23 [History Confirmed 02/15/23] Exam Physical Exam Vital Signs: Temp Pulse Resp BP Pulse Ox O2 Del Method 97.4 F L 68 18 170/79 H 99 Room Air 02/15/23 08:00 02/15/23 08:00 02/15/23 08:00 02/15/23 08:00 02/15/23 08:00 02/15/23 08:00 Narrative: CONST- alert, in bed, no acute distress HEAD- normocephalic and atraumatic EENT- sclera nonicteric and conjunctiva nonerythemic, moist oral mucosa, pharynxclear, left eye blind with opacification NECK- supple, no cervical lymphadenopathy CARDIAC- RRR no abnormal heart tones PULM- diminished without wheeze or rhonchi, RA, no accessory muscle use or coughnoted ABD- S/NT, NABS, obese EXTREM- no edema BLE, calves nontender SKIN- W/D, good turgor MS- MAEx4 spontaneously with weakned bilateral lower extrimities R>L, mild rightarm weakness NEURO- A&Ox3, speech clear and tongue midline, equal facial symmetry PSYCH-mood and behavior appropriate Results Lab Results Labs: Laboratory Last Values Corrected WBC 5.9 X10E3/uL (3.8-11.6) 02/15/23 05:58 Uncorrected WBC Count 5.9 x10E3/uL (3.8-11.6) 02/15/23 05:58 RBC 4.56 X10E6/uL (3.60-5.00) 02/15/23 05:58 Hgb 12.9 g/dL (11.8-15.4) 02/15/23 05:58 Hct 40.4 % (34.0-46.4) 02/15/23 05:58 MCV 88.5 fl (80-100) 02/15/23 05:58 MCH 28.4 pg (24.7-34.3) 02/15/23 05:58 MCHC 32.0 g/dL (32.0-35.0) 02/15/23 05:58 RDW 14.2 % (11.9-15.3) 02/15/23 05:58 Plt Count 218 x10E3/uL (150-450) 02/15/23 05:58 MPV 8.9 fl (6.3-10.7) 02/15/23 05:58 Neut % (Auto) 59.2 % (.) 02/15/23 05:58 Lymph % (Auto) 27.9 % (.) 02/15/23 05:58 Bledsoe % (Auto) 7.7 % (.) 02/15/23 05:58 Eos % (Auto) 4.0 % (.) 02/15/23 05:58 Baso % (Auto) 1.2 % (.) 02/15/23 05:58 Nucleat RBC Rel Count 0.1 /100 WBC (0-0.5) 02/15/23 05:58 Neut # (Auto) 3.5 x10E3/uL (1.8-7.7) 02/15/23 05:58 Lymph # (Auto) 1.6 x10E3/uL (1.00-4.8) 02/15/23 05:58 Bledsoe # (Auto) 0.4 x10E3/uL (0.0-0.8) 02/15/23 05:58 Eos # (Auto) 0.2 x10E3/uL (0.0-0.45) 02/15/23 05:58 Baso # (Auto) 0.1 x10E3/uL (0.0-0.2) 02/15/23 05:58 Monocyte Dist Width 17.72 % (0.00-20.00) 02/15/23 05:58 PT 10.7 Seconds (9.0-12.9) 02/15/23 05:58 INR 0.9 02/15/23 05:58 APTT 31.3 Seconds (25.1-36.5) 02/15/23 05:58 PHA Creatinine Clear 106.31 02/15/23 05:58 Sodium 141 mmol/L (136-145) 02/15/23 05:58 Potassium 4.1 mmol/L (3.5-5.1) 02/15/23 05:58 Chloride 104 mmol/L (98-107) 02/15/23 05:58 Carbon Dioxide 29.8 mmol/L (21.0-31.0) 02/15/23 05:58 Anion Gap 11.3 mEq/L (6.0-15.0) 02/15/23 05:58 BUN 10 mg/dL (7-25) 02/15/23 05:58 Creatinine 0.63 mg/dL (0.60-1.20) 02/15/23 05:58 Est GFR (CKD-EPI) > 60.0 mL/Min 02/15/23 05:58 Glucose 115 mg/dL (70-100) H 02/15/23 05:58 Calcium 9.2 mg/dL (8.6-10.3) 02/15/23 05:58 Total Bilirubin 0.4 mg/dl (0.3-1.0) 02/15/23 05:58 AST 16 U/L (13-39) 02/15/23 05:58 ALT 18 U/L (7-52) 02/15/23 05:58 Alkaline Phosphatase 65 U/L (34-104) 02/15/23 05:58 Total Creatine Kinase 52 U/L (30-223) 02/15/23 05:58 Troponin I High Sens 5.6 pg/mL (0.0-15.0) 02/15/23 05:58 Total Protein 6.3 gm/dL (6.4-8.9) L 02/15/23 05:58 Albumin 4.0 gm/dL (3.5-5.7) 02/15/23 05:58 Globulin 2.3 gm/dL 02/15/23 05:58 Albumin/Globulin Ratio 1.7 02/15/23 05:58 Assessment & Plan Assessment/Plan (1) Right sided weakness: (2) History of TIA (transient ischemic attack): (3) History of CVA (cerebrovascular accident): (4) Hyperlipidemia: (5) Uncontrolled hypertension: (6) Migraines: (7) Chronic back pain: (8) Hypothyroid: (9) Type 2 diabetes mellitus: Plan Right sided weakness/ numbness Hx prior CVA and TIA Hyperlipidemia Uncontrolled hypertension -Neurology consult appreciated, d/w Dr Trevizo -MRI brain pending -defer echo lipid and A1c as d/w Dr Trevizo with recent workup 01/26 - A1c was 6.2, Chol 177/ LDL 106. Echo 01/26-EF 65%, normal LV, LVDD -therapy evaluation -has not taken home dose of antihypertensive meds, resume Lisinopril now and adjust as indicated. PRN Hydralazine -continues DAPT therapy ASA and Clopidogrel, patient is intolerant to statin as documented, on Niacin and Flaxseed -check B12 & D chronic conditions 1. Migraines- monthly Ajovy taken last , Qulipta 2. Chronic back pain- cyclobenzaprine, pregabalin- currently following with NSGY outpatient and recent lumbar MRI 02/13 3. Hypothyroid- levothyroxine. Check TSH 4. DM- metformin, Ozempic last taken last Fri. A1c 6.2% 01/27/23 CODE status- FULL as d/w patient, no visitors present DVT ppx- Enoxaparin IP vs OBS Justification Based on differential dx, clinical care plan, and risk of adverse events, if untreated, in my clinical judgement this patient requires an acute care setting as: OBSERVATION because of an expectation of an under 2 midnight stay. Estimated length of stay (# of days): 2 Documented By: KAYLIN Small 3 1055 Signed By: <Electronically signed by [facility] Alyce Flaherty> 02/15/23 1206 <Electronically signed by Munir Ennis MD> 02/15/23 9[address] [facility] Work Phone: 1(263) 197-341905-27-2023 Consult note Author Dillon Trevizo [facility] February 15, 2023 11:30am Note Date/Time February 15, 2023 11:19 am [facility] [address] [place], [place] [id number] Neurology Consult Note Signed with Janie Patient: MinorJennifer MR#: [id number] : 1960 Acct:[id number] Age/Sex: 62 / F Adm Date: 3 Loc: Room: 1N1732-5 Type: ADM INOo Attending Dr: Munir Ennis MD Copies to: DO Isidro Coyle MD~ ADDENDUM1 Patient examination addendum: The patient strength is 5 out of 5 throughout other than the lower extremities which is 4 -/5 in the right lower extremity and 4+/5 in the left lower extremity. She has good cortical sensation in the bilateral lower extremity andno extinction is present. Reflexes are depressed throughout Addendum Documented By: Dillon Trevizo DO 02/15/23 1130 Addendum Signed By: <Electronically signed by Dillon Trevizo DO> 02/15/23 113 HPI Consult Date: 02/15/23 [employer] Salesperson: Dillon Trevizo DO Reason for consult: right leg weakness Consult Narrative HPI: I was asked to see this 62-year-old female in new patient consultation at the request of the hospitalist service. The patient has a significant past medical history for diabetes, hypertension, history of TIA, evidence of an old lacunar infarct, evidence of migraines and hypothyroidism. The patient presented to theemergency department early this morning after awakening with right-sided weakness and numbness. The patient's last known normal was 9 PM last night. The patient was out of the tPA window. CT and CT angiogram were obtained and did not reveal any acute abnormalities. No large vessel occlusion was identified. The patient was deemed not to be a neuro interventional candidate. The patient is on dual antiplatelet therapy at baseline. The patient is intolerant to statin medications and has an LDL of 106. Per the primary documentation the patient does not meet criteria for an alternative agent for LDL. During a patient handoff in the emergency department the patient was reexamined by a second pulp mill team leader and NIH stroke scale had been shown to be improving Review of Systems Review of Systems All other systems reviewed & are negative unless noted below or in HPI PMFSH Vaccinated for COVID-19?: No Medical History Alopecia Autoimmune disease Alopecia Blind left eye Cluster headache 2017 without deficiets. Diabetes mellitus Type II HTN (hypertension) Hypothyroid Kidney stone 2021 Migraines TIA (transient ischemic attack) Surgical History H/O hernia repair History of bilateral carpal tunnel release History of ear surgery History of ureteroscopy kidney stone removal Hx of cholecystectomy Hx of rotator cuff surgery bilateral Previous section Family History Father Prostate CA Diabetes Heart valve replaced Mother Hypertension Dementia High cholesterol Social History Smoking Status: Never smoker Substance Use Type: None Meds Medications and Allergies Allergies No Known Allergies Allergy (Verified 02/15/23 05:57) Home Medications clopidogrel 75 mg tablet (Plavix) 75 mg PO DAILY hx tia 11/02/17 [History Confirmed 01/26/23] lisinopril 10 mg tablet (Zestril) 10 mg PO QAM htn 11/02/17 [History Confirmed 01/26/23] metformin 1,000 mg tablet 1,000 mg PO BID DM 11/02/17 [History Confirmed 01/26/23] flaxseed oil 1,000 mg capsule 1,000 mg PO BID 03/08/19 [History Confirmed 01/26/23] magnesium 250 mg tablet 500 mg PO DAILY 03/08/19 [History Confirmed 01/26/23] cyclobenzaprine 10 mg tablet 10 mg PO BID 12/15/21 [History Confirmed 01/26/23] semaglutide 1 mg/dose (4 mg/3 mL) subcutaneous pen injector (Ozempic) 2 mg subcut DIRECTED 12/15/21 [History Confirmed 01/26/23] cholecalciferol (vitamin D3) 25 mcg (1,000 unit) tablet (Vitamin D3) 1,000 unit PO DAILY 12/21/21 [History Confirmed 01/26/23] niacin 500 mg tablet (Niacor) 100 mg PO BID 12/21/21 [History Confirmed 01/27/23] pregabalin 100 mg capsule (Lyrica) 100 mg PO QAM 12/21/21 [History Confirmed 01/26/23] pregabalin 50 mg capsule (Lyrica) 150 mg PO QHS 12/21/21 [History Confirmed 01/26/23] vitamin B complex 1 cap PO DAILY 12/21/21 [History Confirmed 01/26/23] atogepant 60 mg tablet (Qulipta) 60 mg PO DAILY 12/03/22 [History Confirmed 01/26/23] fremanezumab-vfrm 225 mg/1.5 mL subcutaneous syringe (Ajovy Syringe) See Rx Instructions .Route .COMPLEX 01/26/23 [History Confirmed 01/26/23] aspirin 81 mg capsule 81 mg PO DAILY #90 caps 01/27/23 [Rx] calcium 600 mg capsule 600 mg PO DAILY 01/27/23 [History Confirmed 01/27/23] levothyroxine 100 mcg tablet 100 mcg PO DAILY 01/27/23 [History Confirmed 01/27/23] levothyroxine 100 mcg tablet (Synthroid) 100 mcg PO DAILY@0630 #30 tabs 01/27/23[Rx] Exam Physical Exam Vital Signs: Temp Pulse Resp BP Pulse Ox O2 Del Method 97.4 F L 68 18 170/79 H 99 Room Air 02/15/23 08:00 02/15/23 08:00 02/15/23 08:00 02/15/23 08:00 02/15/23 08:00 02/15/23 08:00 Narrative: Narrative: GENERAL EXAM: Patient is alert and oriented x3. In general the patient is well-appearing. NEURO EXAM: Cranial nerve II. Vision is intact. Pupils are equal Cranial nerve III, IV and . Extraocular muscles are intact. No nystagmus is appreciated Cranial nerve V and VII. No facial asymmetry is appreciated. Temperature and pinprick is equal bilaterally Cranial nerve VIII hearing is intact Cranial nerve IX and X speech is clear fluent. Palate elevates symmetrically Cranial nerve XI head turn side to side full range of motion. Shoulder shrug is equal bilaterally Cranial nerve XII tongue is midline full range of motion MOTOR EXAM: Strength is 5/5 throughout other than the right lower extremity which does show drift. No pronator drift was appreciated Muscle tone and bulk are normal SENSORY EXAM: Denies paresthesias CEREBELLAR EXAM: Alternating movements are intact. Finger to nose normal Gait not assessed Results Laboratory Findings 02/15/23 05:58 02/15/23 05:58 Diagnostic Findings Imaging/Impressions: ITS Impressions Chest X-Ray 02/15/23 05:57 IMPRESSION: NO ACUTE FINDINGS Impression dictated by: Jennifer aCmp M.D.02/15/2023 9:04 AM Dictation Location: [place] [address] 02/15/23 05:57 IMPRESSION: CHRONIC MICROVASCULAR DISEASE. NO DEFINITE ACUTE INTRACRANIAL ABNORMALITY. FOLLOW-UP IS RECOMMENDED, SYMPTOMS WARRANT. Comment: Preliminary report was provided to Dr. Faith at 0636 hours Impression dictated by: Jennifer Camp M.D.02/15/2023 9:08 AM Dictation Location: [place] [address] Neck CTA 02/15/23 05:58 IMPRESSION: NO SIGNIFICANT VASCULAR FINDINGS OR INTERVAL CHANGE. Impression dictated by: Jennifer Camp M.D.02/15/2023 9:17 AM Dictation Location: [place] [address] Assessment/Plan (1) Lower extremity weakness: Code(s): R29.898 - Other symptoms and signs involving the musculoskeletal system Status: Acute (2) Type 2 diabetes mellitus: Code(s): E11.9 - Type 2 diabetes mellitus without complications Status: Chronic (3) HTN (hypertension): Code(s): I10 - Essential (primary) hypertension Status: Acute Plan It is my impression that the patient has right lower extremity weakness. The weakness seems to be fluctuating. The patient was admitted for similar symptoms approximately 3 to 4 weeks ago. Patient is on dual antiplatelet therapy at home and is unable to tolerate statin medications. Patient was not a tPA or interventional candidate. The patient was clear this morning that albeit her right lower extremity symptoms are the newest and most concerning for her she also has some weakness and paresthesias in the right arm and the right face. From a localization perspective the patient has an intracranial lesion. Work-up: CT of the brain without contrast: Unremarkable CT angiogram of the head and neck: Unremarkable for occlusion, aneurysm or dissection Hemoglobin A1c: 6.2?patient is a known diabetic and this is managed in the outpatient setting LDL: 106?patient intolerant to statin medications 2D echocardiogram: No evidence of mass, vegetation or thrombus MRI of the lumbar spine on 02/13/2023: There is anterolisthesis of L4 upon L5 with facet arthropathy and moderate canal narrowing with bilateral mild neural foraminal narrowing. She does have lumbar changes being evaluated by the neurosurgical team MRI of the brain without contrast: Pending Plan: Continue aspirin and Plavix Patient intolerant to statins I would suggest systolic blood pressure goal of less than 160. PT and OT for right lower extremity weakness If MRI is unremarkable I would suggest outpatient follow-up for the patient and reassurance. Thank you for consult Documented By: Dillon Trevizo DO 3 1112 Signed By: <Electronically signed by Dillon Trevizo DO> 02/15/[address] [facility] Work Phone: 1(495) 444-438705-11-2023 Evaluation note* Encounter Date Diagnosis Assessment Notes Treatment Notes Treatment Clinical Notes January, Lumbosacral spondylosis (ICD-10 - M47.817) I reviewed the x-ray from 11/22/2022 and which shows a 4 mm anterolisthesis of L4 upon L5 secondary to facet hypertrophy no movement is noted on flexion and extension. Similar to previous exam multilevel disc degenerative changes noted. Ms. Rothman has completed physical therapy of 16 sessions notes reviewed. OARRS reviewed. Reviewed pain management notes with slight improvement continues with radicular left leg pain/unstable gait use of cane. Will order MRI of Lumbar spine to determine interventional procedures. Follow up in 4 weeks or once imaging is completed. Medical decision making shows a new problem to me with further workup planned or suggested with the potential for extensive treatment options that were considered with the most applicable given this patient's situation as noted above. Treatment options considered include a combination of physical therapy approaches, pharmacologic management, and interventional procedures. Those most applicable to the patient were discussed at this time. Risk of complications and/or morbidity and mortality is high given that acute and chronic pain poses a threat to life and bodily function if undertreated, poorly treated or with failure to maintain adequate treatment and timely follow up. Given the serious and fluctuating nature of pain with extensive consideration for whenever pain changes, there always remains the possibility of prolonged functional impairment requiring constant patient reassessment and high-level medical decision making. The amount and complexity of data reviewed is moderate given that patient labs, radiology reports, and other test were obtained, reviewed and summarized as applicable from the physician portal and/or outside medical records. Pertinent positive and negative findings were considered in medical decision-making. January, Lumbar radiculopathy (ICD-10 - M54.16) January, Encounter for screening for depression (ICD-10 - Z13.31) PHQ reviewed score 0 negative screening [employer] Other 05-08-2023 Consult note Author Jean Mays [facility] January 27, 2023 2:13pm Note Date/Time January 27, 2023 12:26p m [facility] [address] [place] [address] Neurology Consult Note Signed Patient: MinorJennifer MR#: [id number] : 1960 Acct:[id number] Age/Sex: 62 / F Adm Date: 3 Loc: 3T Room: [address] [place] [address] Type: ADM INOo Attending Dr: Jameson Posada DO Copies to: Jean Mays DO Isidro E Mast DO Jameson Posada DO~ HPI Consult Date: 01/27/23 [employer] Salesperson: Jean Mays, DO PMFSH Vaccinated for COVID-19?: No Medical History (Updated 01/26/23 @ 21:44 by Ernie Oliver Jr, MD) Alopecia Autoimmune disease Alopecia Blind left eye Cluster headache 2017 without deficiets. Diabetes mellitus Type II HTN (hypertension) Hypothyroid Kidney stone 2021 Migraines TIA (transient ischemic attack) Surgical History H/O hernia repair History of bilateral carpal tunnel release History of ear surgery History of ureteroscopy kidney stone removal Hx of cholecystectomy Hx of rotator cuff surgery bilateral Previous section Family History Father Prostate CA Diabetes Heart valve replaced Mother Hypertension Dementia High cholesterol Social History Smoking Status: Never smoker Substance Use Type: None Meds Medications and Allergies Allergies No Known Allergies Allergy (Verified 01/26/23 20:45) Home Medications clopidogrel 75 mg tablet (Plavix) 75 mg PO DAILY hx tia 11/02/17 [History Confirmed 01/26/23] lisinopril 10 mg tablet (Zestril) 10 mg PO QAM htn 11/02/17 [History Confirmed 01/26/23] metformin 1,000 mg tablet 1,000 mg PO BID DM 11/02/17 [History Confirmed 01/26/23] flaxseed oil 1,000 mg capsule 1,000 mg PO BID 03/08/19 [History Confirmed 01/26/23] magnesium 250 mg tablet 500 mg PO DAILY 03/08/19 [History Confirmed 01/26/23] cyclobenzaprine 10 mg tablet 10 mg PO BID 12/15/21 [History Confirmed 01/26/23] semaglutide 1 mg/dose (4 mg/3 mL) subcutaneous pen injector (Ozempic) 2 mg subcut DIRECTED 12/15/21 [History Confirmed 01/26/23] cholecalciferol (vitamin D3) 25 mcg (1,000 unit) tablet (Vitamin D3) 1,000 unit PO DAILY 12/21/21 [History Confirmed 01/26/23] niacin 500 mg tablet (Niacor) 100 mg PO BID 12/21/21 [History Confirmed 01/27/23] pregabalin 100 mg capsule (Lyrica) 100 mg PO QAM 12/21/21 [History Confirmed 01/26/23] pregabalin 50 mg capsule (Lyrica) 150 mg PO QHS 12/21/21 [History Confirmed 01/26/23] vitamin B complex 1 cap PO DAILY 12/21/21 [History Confirmed 01/26/23] atogepant 60 mg tablet (Qulipta) 60 mg PO DAILY 12/03/22 [History Confirmed 01/26/23] fremanezumab-vfrm 225 mg/1.5 mL subcutaneous syringe (Ajovy Syringe) See Rx Instructions .Route .COMPLEX 01/26/23 [History Confirmed 01/26/23] calcium 600 mg capsule 600 mg PO DAILY 01/27/23 [History Confirmed 01/27/23] levothyroxine 100 mcg tablet 100 mcg PO DAILY 01/27/23 [History Confirmed 01/27/23] Exam Physical Exam Vital Signs: Temp Pulse Resp BP Pulse Ox O2 Del Method 97.3 F L 78 14 125/81 98 Room Air 01/27/23 11:27 01/27/23 11:27 01/27/23 11:27 01/27/23 11:27 01/27/23 11:27 01/27/23 11:27 Results Laboratory Findings 01/27/23 05:51 01/27/23 05:51 Lab Results: Hemoglobin A1c 6.2 % (4.3-5.6) H 01/27/23 05:51 Diagnostic Findings Imaging/Impressions: ITS Impressions Head CT 01/26/23 20:16 IMPRESSION: No acute intracranial pathology. Chronic age-related degenerative changes are redemonstrated, as above. A remote lacunar infarct is also redemonstrated in the right deep lora nuclei. There is focal narrowing of the origin of one of the M2 segments on the right with lesser degrees of stenosis of the additional M2 segments on the right at the bifurcation. This may be atherosclerotic in nature. There is focal narrowing of the left posterior cerebral artery at the P2/P3 junction which may be atherosclerotic in nature. This is unchanged. No evidence of focal stenosis, aneurysmal dilatation, dissection or occlusion, otherwise. Impression dictated by: Woodrow Sahni M.D.01/27/2023 8:56 AM Dictation Location: [place] [address] Therapy Recommendations Therapy Recommendations: OT Recommendations OT Other DME Recommended Would benefit from use of FWW at this time OT Recommended Discharge Home with Home Health,Inpatient Rehab Unit Location OT Recommended Services at Physical Therapy,Occupational Therapy, Discharge Occassional Supervision OT If Other Please Specify Home health vs rehab PT Recommendations PT Recommended Discharge Home with Home Health,Inpatient Rehab Unit Location PT Recommended Services at Physical Therapy,Home Health Aide,Homemaker, Discharge Occassional Supervision PT Discharge Comment dependent on pt progress and assist available at home Assessment/Plan (1) TIA (transient ischemic attack): Code(s): G45.9 - Transient cerebral ischemic attack, unspecified Status: Acute Plan CONSULT REASON: TIA HPI: 62-year-old woman. History that includes previous stroke, type 2 diabetes, anxiety disorder, conversion disorder, blind left eye, history of TIA, hyperlipidemia, hypertension, among others. Pertinent neurological home medications include clopidogrel 75 mg daily, aspirin 81 mg daily, pregabalin 100mg in the morning and 150 mg at night, atogepant 60 mg daily, and fremanezumab injection monthly. She was sitting out on her front porch enjoying the nice weather when she felt her left arm lose sensation and then its to her left leg and left face. There was an associated heaviness to the limbs. Sometimes with her headaches she has noticed some fleeting left facial sensory symptoms but this was quite different. This symptom seemingly gradually resolved and were absent in about 45 minutes. She never got any headache that followed those symptoms. She gets fairly frequent migraine headaches and is also treated for cluster headaches. Left cornea and anterior chamber opacification and blind in that eye since a very young child; she says she was told she got into some bleach water and rub that eye. She has tried multiple statin medications previously, and even tried low doses of statin every third day and still developed significant myalgias that kept her from staying on it. She says she is feeling overall exhausted but is otherwise without any symptoms to add to review of systems. EXAMINATION: Well-kempt. No distress. No deformities or trauma. Normal spinal curvature. Limbs seem well-perfused. No significant edema. Normal work of breathing. Visualized skin is generally intact and without lesions. Affect normal. Patient is alert and generally oriented. Attention normal. Speech is fluent and nondysarthric. Right pupil is reactive. Left corneal opacification and left eye deviated laterally. No nystagmus. Facial sensation is normal. Hearingis normal. Facial strength is normal. Tongue is midline. Muscle bulk, tone, and strength are normal. No tremors. Reflexes normal throughout. No pathologic reflexes. Light touch is normal. Vibratory sensation is normal. Normal rapidly alternating movements. No limb dysmetria with [id number]. DATA REVIEW: -CT of head is unremarkable -CTA head and neck shows calcified plaque in the intracranial segments of the internal carotid arteries with the worst narrowing being at the junction of the right ophthalmic segment and supraclinoid segment on the right, and also with focal narrowing at the origin of one of the M2 segments on the right, and focal narrowing of the left [employer]CH[employer] at the P2/P3 junction. -MRI shows no acute intracranial pathology, but demonstrates remote lacunar infarctions in the deep lora nuclei ASSESSMENT: 62-year-old woman presents for evaluation after an episode of left upper extremity, left lower extremity, and left facial numbness. This event represents either transient ischemic attack or acephalgic migraine with hemisensory aura. She has multiple cerebrovascular risk factors and demonstrable intracranial atherosclerosis. She is statin intolerant. She has history of TIA events and MRI seems to show some remote lacunar infarctions in her deep lora nuclei. She takes both aspirin 81 mg daily and clopidogrel 75 mg daily chronically at home. Less likely this represented migraine phenomenon butit is certainly possible given her strong track record of headaches, some of which seem to involve some sensory changes in the left face. She is on 2 very good migraine preventative medications (Qulipta and Ajovy). PLAN: 1. Continue the aspirin 81 mg daily and clopidogrel 75 mg daily. 2. Statin intolerant even to low doses only administered a few times per week. Her LDL is 106 so a PCSK9 inhibitor is not justified. 3. I told her that if she experiences any focal neurological deficits again to come back and be evaluated again. 4. No other recommendations from a neurology standpoint at this time. She follows up in the outpatient setting with Dr. Figueroa. Documented By: Jean Mays DO 01/27/23 1220 Signed By: <Electronically signed by Jean Mays, > 01/27/23 1413 [facility] Work Phone: 1([phone]) 168-188905-08-2023 Hospital Discharge instructionsAmbulatory Orders* Initiate Home Health Time Frame: 01/27/23, Location: Determined By Patient Additional Instructions HOME HEALTH TO MANAGE: Nursing/PT/OT to eval and treat Monitor VS per protocol--HTN Monitor Neuro. assessment--TIA, Lower extremity weakness Monitor Cardiovascular assessment--HTN Monitor for increased signs of weakness Assist with medication management and provide medication education Assist with glucose control Provide education on high risk fall [facility] Work Phone: 1([phone]) 683-250905-08-2023 History and physical note Author Anjali Rosario [facility] January 26, 2023 11:12pm Note Date/Time January 26, 2023 11:12p m [facility] [address] [place] [address] Hospitalist H&P Signed Patient: Jennifer Rothman MR#: [id number] : 1960 Acct:[id number] Age/Sex: 62 / F Adm Date: 3 Loc: Room: [address] [place] [address] Type: ADM INOo Attending Dr: Anjali Rosario MD Copies to: Isidro Reyes MD~ HPI DATE OF EXAMINATION: 01/26/23 CHIEF COMPLAINT: Left-sided numbness and weakness HISTORY OF PRESENT ILLNESS: 62 years old female with a history of previous stroke presented with complaints of sudden onset of left-sided numbness and tingling associated with weakness of the left upper, lower extremity as well as left-sided facial tingling. No reported headache, no vision problems, no speech difficulties, no facial droop noted. Symptoms lasted for about 45 minutes. Upon presenting to emergency roomCT scan of the head/CTA of the head and neck was done which did not reveal any acute findings. Upon my evaluation patient was back to her baseline. She denied any shortness of breath any chest pain any palpitations any dizziness. She denies any cough any fevers. She denies any abdominal pain. Nonausea no vomiting no diarrhea. No dysuria. Patient does have a history of cluster headaches, but currently denies any headaches 10 systems are reviewed and are negative apart what is mentioned in H&P General -patient is awake alert oriented ?3, does not appear to be in distress HEENT -normal oropharyngeal mucosa without any ulcers or exudates Cardiovascular -S1 plus S2, with regular rate, without any murmurs, gallops, rubs Pulmonary -clear to auscultation bilaterally Gastrointestinal -abdomen is soft, nondistended, nontender, bowel sounds positive, no rigidity, no rebound Genitourinary -deferred Musculoskeletal -no significant joint swelling Neurological -no facial asymmetry noted, pupils are equal and symmetrical, extraocular muscle intact, no nystagmus, motor function 5 out of 5 in upper and lower extremities, sensation 5 out of 5 in upper and lower extremities, however significant generalized weakness was noted in lower extremities, bilaterally, finger to nose test performed well without any dysmetria Skin -no significant ulcers, no rash noted Extremities - no edema in bilateral lower extremities noted Psychiatry - appropriate affect Laboratory work up, imaging studies reviewed EKG personally reviewed by me normal sinus rhythm without ST-T wave changes withnonspecific, with ventricular rate 93 [facility] Vaccinated for COVID-19?: No Medical History (Updated 01/26/23 @ 21:44 by Ernie Oliver Jr, MD) Alopecia Autoimmune disease Alopecia Blind left eye Cluster headache 2017 without deficiets. Diabetes mellitus Type II HTN (hypertension) Hypothyroid Kidney stone 2021 Migraines TIA (transient ischemic attack) Surgical History H/O hernia repair History of bilateral carpal tunnel release History of ear surgery History of ureteroscopy kidney stone removal Hx of cholecystectomy Hx of rotator cuff surgery bilateral Previous section Family History Father Prostate CA Diabetes Heart valve replaced Mother Hypertension Dementia High cholesterol Social History Smoking Status: Never smoker Substance Use Type: None Meds Medications and Allergies Allergies No Known Allergies Allergy (Verified 01/26/23 20:45) Home Medications clopidogrel 75 mg tablet (Plavix) 75 mg PO DAILY hx tia 11/02/17 [History Confirmed 01/26/23] lisinopril 10 mg tablet (Zestril) 10 mg PO QAM htn 11/02/17 [History Confirmed 01/26/23] metformin 1,000 mg tablet 1,000 mg PO BID DM 11/02/17 [History Confirmed 01/26/23] levothyroxine 112 mcg tablet (Synthroid) 112 mcg PO QAM hypothyroid 07/27/18 [History Confirmed 01/26/23] flaxseed oil 1,000 mg capsule 1,000 mg PO BID 03/08/19 [History Confirmed 01/26/23] magnesium 250 mg tablet 500 mg PO DAILY 03/08/19 [History Confirmed 01/26/23] cyclobenzaprine 10 mg tablet 10 mg PO BID 12/15/21 [History Confirmed 01/26/23] semaglutide 1 mg/dose (4 mg/3 mL) subcutaneous pen injector (Ozempic) 2 mg subcut DIRECTED 12/15/21 [History Confirmed 01/26/23] cholecalciferol (vitamin D3) 25 mcg (1,000 unit) tablet (Vitamin D3) 1,000 unit PO DAILY 12/21/21 [History Confirmed 01/26/23] niacin 500 mg tablet (Niacor) 500 mg PO BID 12/21/21 [History Confirmed 01/26/23] pregabalin 100 mg capsule (Lyrica) 100 mg PO QAM 12/21/21 [History Confirmed 01/26/23] pregabalin 50 mg capsule (Lyrica) 150 mg PO QHS 12/21/21 [History Confirmed 01/26/23] vitamin B complex 1 cap PO DAILY 12/21/21 [History Confirmed 01/26/23] atogepant 60 mg tablet (Qulipta) 60 mg PO DAILY 12/03/22 [History Confirmed 01/26/23] fremanezumab-vfrm 225 mg/1.5 mL subcutaneous syringe (Ajovy Syringe) See Rx Instructions .Route .COMPLEX 01/26/23 [History Confirmed 01/26/23] Exam Physical Exam Vital Signs: Temp Pulse Resp BP Pulse Ox O2 Del Method 36.4 C 76 20 135/79 98 Room Air 01/26/23 20:39 01/26/23 22:47 01/26/23 22:47 01/26/23 22:47 01/26/23 22:47 01/26/23 22:47 Results Lab Results Labs: Laboratory Last Values Corrected WBC 7.3 X10E3/uL (3.8-11.6) 01/26/23 20:20 Uncorrected WBC Count 7.3 x10E3/uL (3.8-11.6) 01/26/23 20:20 RBC 4.73 X10E6/uL (3.60-5.00) 01/26/23 20:20 Hgb 13.4 g/dL (11.8-15.4) 01/26/23 20:20 Hct 41.4 % (34.0-46.4) 01/26/23 20:20 MCV 87.5 fl (80-100) 01/26/23 20:20 MCH 28.4 pg (24.7-34.3) 01/26/23 20:20 MCHC 32.5 g/dL (32.0-35.0) 01/26/23 20:20 RDW 13.8 % (11.9-15.3) 01/26/23 20:20 Plt Count 219 x10E3/uL (150-450) 01/26/23 20:20 MPV 9.3 fl (6.3-10.7) 01/26/23 20:20 Neut % (Auto) 56.5 % (.) 01/26/23 20:20 Lymph % (Auto) 35.1 % (.) 01/26/23 20:20 Bledsoe % (Auto) 5.5 % (.) 01/26/23 20:20 Eos % (Auto) 2.1 % (.) 01/26/23 20:20 Baso % (Auto) 0.8 % (.) 01/26/23 20:20 Nucleat RBC Rel Count 0.3 /100 WBC (0-0.5) 01/26/23 20:20 Neut # (Auto) 4.1 x10E3/uL (1.8-7.7) 01/26/23 20:20 Lymph # (Auto) 2.6 x10E3/uL (1.00-4.8) 01/26/23 20:20 Bledsoe # (Auto) 0.4 x10E3/uL (0.0-0.8) 01/26/23 20:20 Eos # (Auto) 0.2 x10E3/uL (0.0-0.45) 01/26/23 20:20 Baso # (Auto) 0.1 x10E3/uL (0.0-0.2) 01/26/23 20:20 Monocyte Dist Width 18.96 % (0.00-20.00) 01/26/23 20:20 PT 11.4 Seconds (9.0-12.9) 01/26/23 20:20 INR 1.0 01/26/23 20:20 APTT 31.9 Seconds (25.1-36.5) 01/26/23 20:20 PHA Creatinine Clear 105.73 01/26/23 20:20 Sodium 136 mmol/L (136-145) 01/26/23 20:20 Potassium 4.1 mmol/L (3.5-5.1) 01/26/23 20:20 Chloride 102 mmol/L (98-107) 01/26/23 20:20 Carbon Dioxide 22.1 mmol/L (21.0-31.0) 01/26/23 20:20 Anion Gap 16.0 mEq/L (6.0-15.0) H 01/26/23 20:20 BUN 13 mg/dL (7-25) 01/26/23 20:20 Creatinine 0.66 mg/dL (0.60-1.20) 01/26/23 20:20 Est GFR (CKD-EPI) > 60.0 mL/Min 01/26/23 20:20 Glucose 140 mg/dL (70-100) H 01/26/23 20:20 POC Glucose 162 mg/dl 01/26/23 20:17 Calcium 9.8 mg/dL (8.6-10.3) 01/26/23 20:20 Total Bilirubin 0.5 mg/dl (0.3-1.0) 01/26/23 20:20 AST 18 U/L (13-39) 01/26/23 20:20 ALT 17 U/L (7-52) 01/26/23 20:20 Alkaline Phosphatase 71 U/L (34-104) 01/26/23 20:20 Total Creatine Kinase 76 U/L (30-223) 01/26/23 20:20 Troponin I High Sens 3.7 pg/mL (0.0-15.0) 01/26/23 20:20 Total Protein 6.7 gm/dL (6.4-8.9) 01/26/23 20:20 Albumin 4.4 gm/dL (3.5-5.7) 01/26/23 20:20 Globulin 2.3 gm/dL 01/26/23 20:20 Albumin/Globulin Ratio 1.9 01/26/23 20:20 A&P - Hospitalist Assessment/Plan (1) Lower extremity weakness: Plan 1. TIA associated with left-sided lower extremity paresthesias and weakness, resolved CT scan of the head/CTA of the head and neck without acute findings No known history of atrial fibrillation as per patient, currently EKG showing normal sinus Admit to telemetry, continue with Plavix which the patient has been taking sinceepisode of previous stroke Echocardiogram, MRI, neurology consult 2. Diabetes mellitus type 2, continue with home medications, add sliding scale Hold metformin 3. Hypertension, continue with home medications, hydralazine as needed 4. DVT prophylaxis Lovenox The patient care was discussed with the patient the patient's at the bedside Documented By: Anjali Rosario MD 01/26/[id number] Signed By: <Electronically signed by Anjali Rosario MD> 01/26/23 [address] [facility] Work Phone: [phone] 150-824004-26-2023 Evaluation note* Encounter Date Diagnosis Assessment Notes Treatment Notes Treatment Clinical Notes Dec, Sacroiliitis (ICD-10 - M46.1) 62 year old female here for follow-up status post bilateral sacroiliac joint injection under fluoroscopic guidance. Patient reports 80-90% of pain relief as well as increased function in standing, walking and daily activities. She currently denies low back pain. She does note numbness/tingling down the outer aspect of the left lower extremity to the ankle. She feels the numbness/tingling only occurs with prolonged walking or sitting on hard surfaces for extended periods of time. Overall, she appears to be doing well. I recommend she increase her activities as tolerated. She is counseled against any excessive bending or twisting. She is advised to call the office if her pain returns. Dec, Lumbar radiculopathy (ICD-10 - M54.16) Stable. Continue with current treatment plan. Dec, Lumbosacral spondylosis (ICD-10 - M47.817) Stable. If her symptoms worsen, we can consider proceeding with a bilateral lumbar facet MBB followed by a RFA if applicable under fluoroscopic gudiance Dec, Chronic pain (ICD-10 - G89.29) Continue with current treatment plan [facility] Other 04-17-2023 Evaluation note* Encounter Date Diagnosis Assessment Notes Treatment Notes Treatment Clinical Notes Dec, RLQ abdominal pain (ICD-10 - R10.31) Dec, Bacteriuria (ICD-10 - R82.71) Dec, Other Symptoms are steadily improving, but I am not certain she truly had a urinary tract infection causing her pain, given the small amount of bacteria seen in the urine. Nevertheless, her symptoms are lessening each day, and she would like to continue to observe things for now which I think is reasonable. She will follow-up with Dr. Beebe as scheduled, recheck with me if her abdominal pain does not fully resolved. Otherwise recheck as previously scheduled [facility]* Encounter Date Diagnosis Assessment Notes Treatment Notes Treatment Clinical Notes Nov, Sacroiliitis (ICD-10 - M46.1) If her pain persists or worsens, we can consider SI joint injections in the future. Nov, Lumbar radiculopathy (ICD-10 - M54.16) 62 year old female here for follow up for chronic pain. She was last seen 9 months ago. She voices complaints of low back pain with numbness/tingling down the outer aspect of bilateral lower extremities to the ankles, more on the left side. She feels her pain is negatively impacting her activities of daily living. Pertinent imaging of the lumbar spine was reviewed and discussed in detail with the patient which showed disc bulges causing narrowing in the lumbar spinal canal as well as arthritis of the lumbosacral spine. Anatomy of spine discussed in detail with patient in regards to patients condition. I recommend we proceed with a left followed by right L4,5 transforaminal epidural steroid injection under fluoroscopic guidance. Risks and benefits of procedure explained to patient; patient verbalizes understanding. Nov, Lumbosacral spondylosis (ICD-10 - M47.817) Continue with current treatment plan. Nov, Chronic pain (ICD-10 - G89.29) Follow up after procedure [facility] Other 02-16-2023 Evaluation note* Encounter Date Diagnosis Assessment Notes Treatment Notes Treatment Clinical Notes Oct, Sacroiliitis (ICD-10 - M46.1) I independently reviewed the MRI from 04/24/2021 which showed multilevel mild to moderate stenosis and mild vertebral malalignment at the L4-L5. Patient has not had any new imaging over the last year. Upon examination patient continues to have bilateral lower extremity weakness, radicualr symptoms, along with sacroiliac and review patient had significant relief in January 2022 with pain management sacroiliac injections. Will refer back to Dr. Beebe at this time for additional sacroiliac injections. I will send him a copy of my note from today. with my recommendations. Will order xray of 6V lumbar spine/ pelvis, Will refer to Physical Therapy/[facility], and follow up in 12 weeks. Oct, Lumbosacral spondylosis (ICD-10 - M47.817) Oct, Lumbar back pain with radiculopathy affecting lower extremity (ICD-10 - M54.16) Oct, BMI 38.0-38.9,adult (ICD-10 - Z68.38) Oct, Other Medical decisio n making shows acute on chronic chronic with new problem to me with further workup planned or suggested with the potential for extensive treatment options that were considered with the most applicable given this patient's situation as noted above. Treatment options considered include a combination of physical therapy approaches (has not had in >1 year), pharmacologic management (currently on Lyrica BID), and interventional procedures (previously had sacroiliac injections with 12 weeks of relief, last injection January 2022). Those most applicable to the patient were discussed at this time. Risk of complications and/or morbidity and mortality is high given that acute and chronic pain poses a threat to life and bodily function if undertreated, poorly treated or with failure to maintain adequate treatment and timely follow up. Given the serious and fluctuating nature of pain with extensive consideration for whenever pain changes, there always remains the possibility of prolonged functional impairment requiring constant patient reassessment and moderate level medical decision making. The amount and complexity of data reviewed is moderate given that patient labs, radiology reports, and other test were obtained, reviewed and summarized as applicable from the physician portal and/or outside medical records. Pertinent positive and negative findings were considered in medical decision-making. [facility] Other 02-06-2023 Evaluation note* Encounter Date Diagnosis Assessment Notes Treatment Notes Treatment Clinical Notes Oct, Diabetes mellitus (ICD-10 - E11.9) Semen control is good. Continue current meds, I commended her on her excellent efforts towards weight loss. Recheck in 3 to 4 months, sooner if problems Oct, Hypertension (ICD-10 - I10) BP controlled, continue Rx Oct, Migraine without status migrainosus, not intractable, unspecified migraine type (ICD-10 - G43.909) Her headaches have been difficult to control, she will continue to follow with neurology. Botox questions are answered. Oct, Spinal stenosis of lumbar region with neurogenic claudication (ICD-10 - M48.062) I will arrange referral to neurosurgery for consideration of interventional procedures. [facility] Other 10-17-2022 Evaluation note* Encounter Date Diagnosis Assessment Notes Treatment Notes Treatment Clinical Notes Jun, Diabetes mellitus (ICD-10 - E11.9) [facility] Other 10-10-2022 Evaluation note* Encounter Date Diagnosis Assessment Notes Treatment Notes Treatment Clinical Notes Jun, Diabetes mellitus (ICD-10 - E11.9) Increase Ozempic dose up to 2 mg weekly. Stay on other meds. Keep working on diet, exercise, lifestyle treatment. She will call me if she has any adverse side effects from the higher dose of Ozempic. Otherwise recheck in 3 to 4 months, sooner if problems Jun, Hypertension (ICD-10 - I10) Home BPs sound well controlled, continue Rx Jun, Hyperlipidemia, unspecified hyperlipidemia type (ICD-10 - E78.5) Await labs. Continue the niacin, she has been intolerant of statins in the past. Jun, Other specified hypothyroidism (ICD-10 - E03.8) [facility] Other 06-06-2022 Evaluation note* Encounter Date Diagnosis Assessment Notes Treatment Notes Treatment Clinical Notes Feb, Diabetes mellitus (ICD-10 - E11.9) A1c is stable. Continue current meds, no changes. Recheck in 3 to 4 months with labs at that time. Keep working on lifestyle treatment for weight loss, make healthy diet choices and exercise as tolerated Feb, Hypertension (ICD-10 - I10) BP upper limit of normal, previously well controlled. I asked her to check home BP readings regularly over the next week and call results to me. Stay on current Rx for now Feb, Hyperlipidemia (ICD-10 - E78.5) Continue niacin, repeat labs at next visit. Keep working on weight loss [facility] Other 06-01-2022 Evaluation note* Encounter Date Diagnosis Assessment Notes Treatment Notes Treatment Clinical Notes Feb, Sacroiliitis (ICD-10 - M46.1) 61 year old female here for follow up status post bilateral sacroiliac joint injection under fluoroscopic guidance. Patient reports 100% pain relief as well as improved walking, standing and daily functions following procedure. She voices complaints of left sided buttock pain. She also notes new onset of numbness to bilateral feet. Overall she is doing very well, she feels her residual pain is manageable. She can continue her activities as tolerated. She is encouraged to call the office should her pain become bothersome. Feb, Lumbosacral spondylosis (ICD-10 - M47.817) Her lumbar pain is minimal, consider lumbar facet medial branch nerve blocks in the future if needed. Feb, Lumbar radiculopathy (ICD-10 - M54.16) Patient has no lower extremity pain. Feb, Chronic pain (ICD-10 - G89.29) Follow up as needed. [facility] Other 05-23-2022 Miscellaneous Notes* Telephone Encounter - Vicky Melquiades Pss - 02/11/2022 11:26 AM EDT Physician: Kelley Call from patient requesting refill. Please E-Scribe Last OV: 03/07/2021 with Kelley Future OV: Trying to schedule for 02/14/2022 at 4:00pm but patient has to speak to Financial counselor first. Pending Prescriptions Disp Refills GALCANEZUMAB-GNLM 120 MG/ML SUBCUTANEOUS PEN INJECTOR 1 Pen 6 Sig: Inject 1 mL subcutaneously once every month. EMMIE: No [facility] Encounter Date Diagnosis Assessment Notes Treatment Notes Treatment Clinical Notes January, Sacroiliitis (ICD-10 - M46.1) 61 year old female here for follow up status post right L4 and L5 transforaminal epidural steroid injection under fluoroscopic guidance. Patient reports 100% relief of her lower extremity pain, as well as improved walking, standing and daily functions following procedure. She voices complaints of low back/buttock pain. Anatomy of spine discussed in detail with patient in regards to patients condition. Patient is a candidate for a bilateral sacroiliac joint injection under fluoroscopic guidance. Risks and benefits of procedure explained to patient; patient verbalizes understanding. January, Lumbosacral spondylosis (ICD-10 - M47.817) In the future if the pain persists, we can consider proceeding with a lumbar facet medial branch nerve block followed by a RFA if applicable under fluoroscopic guidance January, Lumbar radiculopathy (ICD-10 - M54.16) Patient reports 100% relief of her right lower extremity pain following procedure. January, Chronic pain (ICD-10 - G89.29) Continue with current treatment plan [facility] Other 04-11-2022 Evaluation note* Encounter Date Diagnosis Assessment Notes Treatment Notes Treatment Clinical Notes Dec, Hospital discharge follow-up (ICD-10 - Z09) She is doing well post hospital discharge. No medication changes are made. Her metformin was held, she is back on this rx now. She has a routine recheck scheduled for February, she will keep this appointment. Follow with urology as already arranged. It seems like her belly pain has not 100% resolved, but it is lessening quite a bit. Contact me if it worsens. She also mentioned that her left ear felt a little full, she thought there might have been some drainage. I reassured her that her exam is unremarkable. Dec, Nephrolithiasis (ICD-10 - N20.0) [facility] Other 04-04-2022 Evaluation note* Encounter Date Diagnosis Assessment Notes Treatment Notes Treatment Clinical Notes Dec, Lumbar radiculopathy (ICD-10 - M54.16) 61 year old female presents with complaints of low back pain with radiation down the outer aspect of bilateral lower extremities to the ankles/feet. She states in October of 2017, she was hospitalized after losing the ability to walk. She re-gained ability to walk with some physical therapy. She notes previous epidural steroid injections with Dr Dharmesh Padgett where she received short term relief. She feels pain can negatively impact her daily activities and sleeping pattern. Prior to examining the patient, I reviewed progress notes from her referring physician, Dr Figueroa. I also independently reviewed recent MRI of the lumbar spine which shows degenerative disc disease as well as facet arthropathy. Anatomy of spine discussed in detail with patient in regards to patients condition. Patient is a candidate for a L4,5 transforaminal epidural steroid injection on the left followed by right side. Risks and benefits of procedure explained to patient; patient verbalizes understanding. Dec, Sacroiliitis (ICD-10 - M46.1) In the future if the pain persists, we can consider proceeding with a sacroiliac joint injection under fluoroscopic guidance. Dec, Lumbosacral spondylosis (ICD-10 - M47.817) If her low back pain persists, we can consider proceeding with a lumbar facet medial branch nerve block followed by a RFA if applicable under fluoroscopic guidance. Dec, Chronic pain (ICD-10 - G89.29) Continue with current treatment plan Dec, Other Medical deci bruce making shows a new problem to me with further workup planned or suggested with the potential for extensive treatment options that were considered with the most applicable given this patient's situation as noted above. Treatment options considered include a combination of physical therapy approaches, pharmacologic management, and interventional procedures. Those most applicable to the patient were discussed at this time. Risk of complications and/or morbidity and mortality is high given that acute and chronic pain poses a threat to life and bodily function if undertreated, poorly treated or with failure to maintain adequate treatment and timely followup. Given the serious and fluctuating nature of pain with extensive consideration for whenever pain changes, there always remains the possibility of prolonged functional impairment requiring constant patient reassessment and high-level medical decision making. The amount and complexity of data reviewed is high given that patient labs, radiology reports, and other test were obtained, reviewed and summarized as applicable from the physician portal and/or outside medical records. Pertinent positive and negative findings were considered in medical decision-making. [facility] Other 02-07-2022 Evaluation note* Encounter Date Diagnosis Assessment Notes Treatment Notes Treatment Clinical Notes Oct, Diabetes mellitus (ICD-10 - E11.9) Glycemic control looks good. No medication changes are made. Routine recheck in 4 months, sooner if needed. Keep working on lifestyle treatment including weight loss and exercise. Oct, Other hyperlipidemia (ICD-10 - E78.4) She is not currently taking a statin, she has been intolerant of them in the past on multiple occasions. Recently her neurologist tried her on rosuvastatin, and even with every second or third day dosing she was unable to tolerate it as well. Oct, Hypertension (ICD-10 - I10) Today's BP higher than usual, likely due to the pain of her migraine. No medication changes are made at this time, but I encouraged her to follow home BPs and contact me if she does not return down to her usual controlled blood pressure readings. Oct, Spinal stenosis of lumbar region, unspecified whether neurogenic claudication present (ICD-10 - M48.061) We discussed treatment options for lumbar spinal stenosis, various intervention strategies. Ultimately she decided to discuss this further with her neurologist at her upcoming appointment there next month [facility] Other 10-11-2021 Evaluation note* Encounter Date Diagnosis Assessment Notes Treatment Notes Treatment Clinical Notes Jun, Diabetes mellitus (ICD-10 - E11.9) [facility] Other 06-01-2019 History general Narrative - Reported* Type Description Date Medical History DM II Medical History HYPOTHYROIDISM Medical History alopecia universalis Medical History migranes Medical History neck and hip pain Medical History TIA in February 2019 Surgical History rotator cuff tear repair 09/29 Surgical History ear surgery Surgical History gallbladder 08/03/18 Surgical History Bilateral Carpal Tunnel Release Hospitalization History see surgical hx Hospitalization History HEADACHES/ARM NUMBNESS 1 Hospitalization History NERVE DAMAGE IN LEGS 2/2 018 Hospitalization History POSSIBLE TIA 2018 [facility] Other 06-01-2019 History general Narrative - Reported* Type Description Date Medical History DM II Medical History HYPOTHYROIDISM Medical History alopecia universalis Medical History migranes Medical History neck and hip pain Medical History TIA in February 2019 Surgical History rotator cuff tear repair 09/29 Surgical History ear surgery Surgical History gallbladder 08/03/18 Surgical History Bilateral Carpal Tunnel Release Surgical History removal of kidney stone 11/2021 Hospitalization History see surgical hx Hospitalization History HEADACHES/ARM NUMBNESS 1 Hospitalization History NERVE DAMAGE IN LEGS 10/24 018 Hospitalization History POSSIBLE TIA 2018 [facility] Other 06-01-2019 History general Narrative - Reported* Type Description Date Medical History DM II Medical History HYPOTHYROIDISM Medical History alopecia universalis Medical History migranes Medical History neck and hip pain Medical History TIA in February 2019 Surgical History rotator cuff tear repair 09/29 Surgical History ear surgery Surgical History gallbladder 08/03/18 Surgical History Bilateral Carpal Tunnel Release Surgical History removal of kidney stone 11/2021 Hospitalization History see surgical hx Hospitalization History HEADACHES/ARM NUMBNESS 1 Hospitalization History NERVE DAMAGE IN LEGS /2 018 Hospitalization History POSSIBLE TIA 2018 Hospitalization History REMOVAL OF KDNEY STONE [facility] Other 06-01-2019 History general Narrative - Reported* Type Description Date Medical History DM II Medical History HYPOTHYROIDISM Medical History alopecia universalis Medical History migranes Medical History neck and hip pain Medical History TIA in February 2019 Medical History Hypertension Medical History obesity Medical History migraine headache Surgical History rotator cuff tear repair 09/29 Surgical History ear surgery Surgical History gallbladder 08/03/18 Surgical History Bilateral Carpal Tunnel Release Surgical History removal of kidney stone 11/2021 Surgical History cataract removal right eye 08/23 022 Surgical History hernia repair Surgical History C section Hospitalization History see surgical hx Hospitalization History HEADACHES/ARM NUMBNESS 1 Hospitalization History NERVE DAMAGE IN LEGS 2/2 018 Hospitalization History POSSIBLE TIA 2018 Hospitalization History REMOVAL OF KDNEY STONE [facility] Other 06-01-2019 History general Narrative - Reported* Type Description Date Medical History DM II Medical History HYPOTHYROIDISM Medical History alopecia universalis Medical History migranes Medical History neck and hip pain Medical History TIA in February 2019 Medical History Hypertension Medical History obesity Medical History migraine headache Surgical History rotator cuff tear repair 09/29 Surgical History ear surgery Surgical History gallbladder 08/03/18 Surgical History Bilateral Carpal Tunnel Release Surgical History removal of kidney stone 11/2021 Surgical History cataract removal right eye 08/23 022 Surgical History hernia repair Surgical History C section Hospitalization History see surgical hx Hospitalization History HEADACHES/ARM NUMBNESS 1 Hospitalization History NERVE DAMAGE IN LEGS 2/2 018 Hospitalization History POSSIBLE TIA 2018 Hospitalization History REMOVAL OF KDNEY STONE Hospitalization History TIA 01/25/23- [facility] Other 06-01-2019 History general Narrative - Reported* Type Description Date Medical History DM II Medical History HYPOTHYROIDISM Medical History alopecia universalis Medical History migranes Medical History neck and hip pain Medical History TIA in February 2019 Medical History Hypertension Medical History obesity Medical History migraine headache Surgical History rotator cuff tear repair 09/29 Surgical History ear surgery Surgical History gallbladder 08/03/18 Surgical History Bilateral Carpal Tunnel Release Surgical History removal of kidney stone 11/2021 Surgical History cataract removal right eye 08/23 022 Surgical History hernia repair Surgical History C section Hospitalization History see surgical hx Hospitalization History HEADACHES/ARM NUMBNESS 1 Hospitalization History NERVE DAMAGE IN LEGS 2/2 018 Hospitalization History POSSIBLE TIA 2018 Hospitalization History REMOVAL OF KDNEY STONE Hospitalization History TIA 01/25/23- Hospitalization History Lower Extremity weakness 02/15/23-02/17/23 [facility] Other 06-01-2019 History general Narrative - Reported* Type Description Date Medical History DM II Medical History HYPOTHYROIDISM Medical History alopecia universalis Medical History migranes Medical History neck and hip pain Medical History TIA in February 2019 Medical History Hypertension Medical History obesity Medical History migraine headache Surgical History rotator cuff tear repair 09/29 Surgical History ear surgery Surgical History gallbladder 08/03/18 Surgical History Bilateral Carpal Tunnel Release Surgical History removal of kidney stone 11/2021 Surgical History cataract removal right eye 08/23 022 Surgical History hernia repair Surgical History C section Hospitalization History see surgical hx Hospitalization History HEADACHES/ARM NUMBNESS 1 Hospitalization History NERVE DAMAGE IN LEGS 10/24 018 Hospitalization History POSSIBLE TIA 2018 Hospitalization History REMOVAL OF KDNEY STONE Hospitalization History TIA 01/25/23- Hospitalization History Lower Extremity weakness 02/15/23-02/17/23 Hospitalization History Stroke like symptoms -- [facility] Other Discharge summary Author Jameson Posada [facility] January 27, 2023 4:33pm Note Date/Time January 27, 2023 4:32pm [facility] [address] [place] [address] Discharge Summary Signed Patient: Jennifer Rothman MR#: [id number] : 1960 Acct:[id number] Age/Sex: 62 / F Adm Date: 3 Loc: Room: [address] [place] [address]: Jameson Posada DO Copies to: Isidro Orozco DO~ Providers Date of Admission: 01/26/23 Date of Discharge: 01/27/23 Discharging Provider: Jameson Posada Primary Care Provider: Isidro Gonzalez Consults: 01/26/23 21:33 Consult to Neurology Routine 01/26/23 21:34 Consult to Occupational Therapy Routine Consult to Physical Therapy Routine Discharge Diagnosis (1) TIA (transient ischemic attack): (2) Lower extremity weakness: (3) Type 2 diabetes mellitus: (4) HTN (hypertension): (5) History of TIA (transient ischemic attack): Final Diagnosis Final Discharge Diagnosis: As above Summary Hospital Course Hospital course: Miss Rothman is a 60-year-old female who was admitted to hospital the afternoon ofJanuary 7 with a chief complaint of sudden onset left-sided numbness tingling, left upper extremity and lower extremity weakness and left-sided facial tingling. She does have history of prior TIA/stroke and is already on aspirin and Plavix therapy. She is intolerant to statin. She was subsequent to the hospital for evaluation and treatment, CT of the head, CTA head and neck were all nonacute. Echocardiogram was performed upon admission and showed no evidence of PFO or septal issues, MRI was performed and did show remote lacunar infarct stroke seenon prior studies with no other acute findings. She was seen on neurology consultation who recommended continued continuing aspirin and Plavix therapy, she did not qualify for the PCSK9 inhibitor and was instructed to follow-up withneurology in the outpatient setting. She is already known to the practice and follows Dr. Roy. She was discharged afternoon of January 27 with home health therapy and the continuation of aspirin and Plavix as mentioned. Time Spent with Patient Time spent providing/coordinating discharge services (# min): 20 Diagnostic Studies Completed and Pending Studies Labs on day of discharge: 01/27/23 11:20: POC Glucose 115 01/27/23 05:51: Estimat Average Glucose 131, Hemoglobin A1c 6.2 H 01/27/23 05:51: PHA Creatinine Clear 103.96, Sodium 139, Potassium 4.3, [id number], Carbon Dioxide 27.8, Anion Gap 12.5, BUN 15, Creatinine 0.65, Est GFR (CKD-EPI) > 60.0, Glucose 99, Calcium 8.9, Triglycerides 72, Cholesterol 177, LDL Cholesterol, Calc 106 H, VLDL Cholesterol 14, HDL Cholesterol 57, Cholesterol/HDL Ratio 3.1 01/27/23 05:51: Corrected WBC 8.3, Uncorrected WBC Count 8.3, RBC 4.78, Hgb 13.6, Hct 42.2, MCV 88.3, MCH 28.5, MCHC 32.3, RDW 13.8, Plt Count 155 D, MPV 10.2, Neut % (Auto) 71.6, Lymph % (Auto) 22.4, Bledsoe % (Auto) 5.1, Eos % (Auto) 0.5, Baso % (Auto) 0.4, Nucleat RBC Rel Count 0.2, Neut # (Auto) 5.9, Lymph # (Auto) 1.8, Bledsoe # (Auto) 0.4, Eos # (Auto) 0.0, Baso # (Auto) 0.0 01/27/23 00:18: POC Glucose 103 01/26/23 20:20: Total Creatine Kinase 76, Troponin I High Sens 3.7 01/26/23 20:20: PHA Creatinine Clear 105.73, Sodium 136, Potassium 4.1, [id number], Carbon Dioxide 22.1, Anion Gap 16.0 H, BUN 13, Creatinine 0.66, Est GFR (CKD- EPI) > 60.0, Glucose 140 H, Calcium 9.8, Total Bilirubin 0.5, AST 18, ALT 17, Alkaline Phosphatase 71, Total Protein 6.7, Albumin 4.4, Globulin 2.3, Albumin/Globulin Ratio 1.9 01/26/23 20:20: PT 11.4, INR 1.0, APTT 31.9 01/26/23 20:20: Corrected WBC 7.3, Uncorrected WBC Count 7.3, RBC 4.73, Hgb 13.4, Hct 41.4, MCV 87.5, MCH 28.4, MCHC 32.5, RDW 13.8, Plt Count 219, MPV 9.3,Neut % (Auto) 56.5, Lymph % (Auto) 35.1, Bledsoe % (Auto) 5.5, Eos % (Auto) 2.1, Baso % (Auto) 0.8, Nucleat RBC Rel Count 0.3, Neut # (Auto) 4.1, Lymph # (Auto) 2.6, Bledsoe # (Auto) 0.4, Eos # (Auto) 0.2, Baso # (Auto) 0.1, Monocyte Dist Width18.96 01/26/23 20:17: POC Glucose 162 Exam Physical Exam Vital Signs: Temp Pulse Resp BP Pulse Ox O2 Del Method 97.3 F L 78 14 125/81 98 Room Air 01/27/23 11:27 01/27/23 11:27 01/27/23 11:27 01/27/23 11:27 01/27/23 11:27 01/27/23 12:00 Discharge Plan Discharge Plan Patient Disposition: Home Health Services Activity: No Activity Restriction Diet: Diabetic Additional Instructions: HOME HEALTH TO MANAGE: Nursing/PT/OT to eval and treat Monitor VS per protocol--HTN Monitor Neuro. assessment--TIA, Lower extremity weakness Monitor Cardiovascular assessment--HTN Monitor for increased signs of weakness Assist with medication management and provide medication education Assist with glucose control Provide education on high risk fall precautions Instructions: Transient Ischemic Attack (DC) Prescriptions: New levothyroxine [Synthroid] 100 mcg Tablet 100 mcg PO DAILY@0630 Qty: 30 1RF aspirin 81 mg capsule 81 mg PO DAILY Qty: 90 0RF Continued cyclobenzaprine 10 mg tablet 10 mg PO BID Ozempic 1 mg/dose (4 mg/3 mL) pen injector 2 mg SUBCUT DIRECTED Rx Instructions: INJECT 1 MG SUBCUTANEOUSLY ONCE WEEKLY DIRECTED pregabalin [Lyrica] 50 mg capsule 150 mg PO QHS pregabalin [Lyrica] 100 mg capsule 100 mg PO QAM Rx Instructions: take 100mg qam and 150mg qhs. niacin [Niacor] 500 mg Tablet 100 mg PO BID Rx Instructions: takes 2 tabs BID vitamin B complex Capsule 1 cap PO DAILY cholecalciferol (vitamin D3) [Vitamin D3] 25 mcg (1,000 unit) Tablet 1,000 unit PO DAILY clopidogrel [Plavix] 75 mg Tablet 75 mg PO DAILY metformin 1,000 mg Tablet 1,000 mg PO BID lisinopril [Zestril] 10 mg Tablet 10 mg PO QAM flaxseed oil 1,000 mg Capsule 1,000 mg PO BID magnesium 250 mg Tablet 500 mg PO DAILY Qulipta 60 mg tablet 60 mg PO DAILY Patient Comments: TAKE 1 TABLET BY MOUTH EVERY DAY Ajovy Syringe 225 mg/1.5 mL syringe See Rx Instructions .ROUTE .COMPLEX Patient Comments: INJECT 1.5ML SUBCUTANEOUSLY ONCE MONTHLY Rx Instructions: mg subcutaneously calcium 600 mg Capsule 600 mg PO DAILY levothyroxine 100 mcg Tablet 100 mcg PO DAILY Other Ambulatory Orders: Initiate Home Health (Routine) Timeframe: [id number] Location: Determined by Patient Ordered By: Jameson Posada Follow Up: [facility] [place] [Outside] - 02/24/23 1:40 pm Isidro Gonzalez DO [Primary Care Provider] - 02/03/23 9:00 am (Post hospital appointment. Please call and reschedule if needed.) Documented By: Jameson Posada DO 01/27/23 0679 Signed By: <Electronically signed by Jameson Posada DO> 01/27/[address] [facility] Work Phone: Discharge summary Author Karen Mar [facility] March 09, 2023 6:05pm Note Date/Time March 07, 2023 6:48 pm [facility] [address] [place] [address] Discharge Summary Signed Patient: Jennifer Rothman MR#: [id number] : 1960 Acct:[id number] Age/Sex: 62 / F Adm Date: 3 Loc: Room: [address] [place] [address]: Karen Mar MD Copies to: Isidro Gonzalez DO HANY Meraz MD~ Providers Date of Discharge: 03/07/23 Discharging Provider: Karen Mar Primary Care Provider: Isidro Gonzalez Consults: 03/04/23 18:20 Consult to Neurology Routine 03/04/23 19:14 Consult to Occupational Therapy Routine Consult to Physical Therapy Routine 03/05/23 11:43 [facility] [[facility] Transition of Care Referral] Routine Discharge Diagnosis (1) Intractable headache: Final Diagnosis Final Discharge Diagnosis: As noted above Summary Hospital Course Hospital course: Jennifer Rothman is a 62-year-old female with a past medical history significant for TIA, old lacunar infarct, diabetes, hypertension, hypothyroidism, migraines on preventative therapy who presented to the emergency department with complaints of right-sided weakness with intractable headache.??Upon arrival to the ER, headCT was negative for any acute intracranial findings.? Blood pressure was noted to be elevated with systolic in the 200s and diastolic in the 100s.? She was administered magnesium 2 g IV x1 and admitted under observation in order to ruleout cerebrovascular accident. During the course of her hospital stay right hemisensory/hemimotor symptoms had resolved. She was seen and evaluated by neurology and thought that her symptomswere likely demonstrating a complicated migraine. She was started on valproic acid 500 mg twice daily with improvement to headache. She was discharged on oral pain medication and to follow-up with neurology. Condition Condition at Discharge: Stable Time Spent with Patient Time spent providing/coordinating discharge services (# min): 40 Diagnostic Studies Completed and Pending Studies Labs on day of discharge: 03/07/23 06:44: POC Glucose 105 03/06/23 20:59: POC Glucose 171 Exam Physical Exam Vital Signs: Temp Pulse Resp BP Pulse Ox O2 Del Method 98.2 F 70 18 151/80 H 98 Room Air 03/07/23 15:59 03/07/23 15:59 03/07/23 15:59 03/07/23 15:59 03/07/23 15:59 03/07/23 15:59 Narrative: CONST- Appears well -developed and well nourished HEAD - Normocephalic and atraumatic EENT-Sclera nonicteric and conjunctive are nonerythemic, moist oral mucosa, pharynx clear NECK-Supple, no cervical lymphadenopathy CARDIAC-normal rate, regular rhythm, normal S1 & S2. PULM-clear without wheeze or rhonchi, RA, no accessory muscle use or cough noted ABD - Soft. Bowel sounds are normal. No distention No tenderness EXTREM-no edema BLE calves nontender SKIN- W/D good turgor MS- MAEX4 spontaneously with equal with equal strength NEURO- A&Ox3 speech clear and tongue midline, equal facial symmetry no focal motor deficits PSYCH-Mood, affect and behavior appropriate Discharge Plan Discharge Plan Patient Disposition: Home Health Services Activity: No Activity Restriction Diet: Diabetic Additional Instructions: PT to eval and treat Prescriptions: New hydrocodone-acetaminophen 5-325 mg tablet 1 tab PO Q4-6H PRN (Reason: pain) 4 Days Qty: 12 0RF Continued cyclobenzaprine 10 mg tablet 10 mg PO BID Ozempic 1 mg/dose (4 mg/3 mL) pen injector 2 mg SUBCUT DIRECTED Rx Instructions: INJECT 1 MG SUBCUTANEOUSLY ONCE WEEKLY DIRECTED pregabalin [Lyrica] 50 mg capsule 150 mg PO QHS pregabalin [Lyrica] 100 mg capsule 100 mg PO QAM Rx Instructions: take 100mg qam and 150mg qhs. niacin [Niacor] 500 mg Tablet 1,000 mg PO BID Rx Instructions: takes 2 tabs BID vitamin B complex Capsule 1 cap PO DAILY cholecalciferol (vitamin D3) [Vitamin D3] 25 mcg (1,000 unit) Tablet 1,000 unit PO DAILY clopidogrel [Plavix] 75 mg Tablet 75 mg PO DAILY metformin 1,000 mg Tablet 1,000 mg PO BID lisinopril [Zestril] 10 mg Tablet 10 mg PO QAM flaxseed oil 1,000 mg Capsule 1,000 mg PO BID magnesium 250 mg Tablet 500 mg PO DAILY Qulipta 60 mg tablet 60 mg PO DAILY Patient Comments: TAKE 1 TABLET BY MOUTH EVERY DAY Ajovy Syringe 225 mg/1.5 mL syringe See Rx Instructions .ROUTE .COMPLEX Patient Comments: INJECT 1.5ML SUBCUTANEOUSLY ONCE MONTHLY Rx Instructions: mg subcutaneously calcium 600 mg Capsule 600 mg PO DAILY aspirin 81 mg capsule 81 mg PO DAILY Qty: 90 0RF cyanocobalamin (vitamin B-12) 1,000 mcg/mL Solution 1,000 mcg subcut QWEEK 28 Days Qty: 4 0RF levothyroxine 100 mcg Tablet 75 mcg PO DAILY 30 Days Qty: 23 0RF Other Ambulatory Orders: Initiate Home Health (Routine) Timeframe: [id number] Location: Determined by Patient Ordered By: Karen Mar Follow Up: [facility] [place] [Outside] (The office is currently closed. Please call the office to schedule a follow-up appointment.) Isidro Gonzalez DO [Primary Care Provider] - 03/11/23 4:30 pm (You have been scheduled for a follow up appointment for the following date and time, please call to reschedule if needed.) Attending Physician Attestation: I agree with the findings and plan as documented in this note and have edited itif needed to reflect my findings and plan. Karen Mar MD Documented By: Dorys Palacios APRN 03/07/23 184 Signed By: <Electronically signed by HANY Palacios> 03/09/23 180 <Electronically signed by Karen Mar MD> 03/09/23 180 [facility] Work Phone: Evaluation noteNo [place] Other Evaluation noteNo assessment information available [facility] Work Phone: Evaluation note* Diagnosis Migraine without aura and without status migrainosus, not intractable Migraine without aura, without mention of intractable migraine without mention of status migrainosus [facility] Onset Date Resolution Status Diabetes mellitus acute HTN (hypertension) acute Lower extremity weakness acu te TIA (transient ischemic attack) acute [facility] Work Phone: Evaluation note* Diagnosis Onset Date Resolution Status HTN (hypertension) acute Lower extremity weakness acu te TIA (transient ischemic attack) acute Diabetes mellitus resolved Chronic back pain acute History of CVA (cerebrovascular accident) acute HTN (hypertension) acute Hyperlipidemia acute Hypothyroid acute Lower extremity weakness acu te Migraines acute Right sided weakness acute Uncontrolled hypertension ac [place] History of TIA (transient ischemic attack) chronic Type 2 diabetes mellitus chr onic [facility] Work Phone: Evaluation note* Diagnosis Onset Date Resolution Status HTN (hypertension) acute Lower extremity weakness acu te TIA (transient ischemic attack) acute Diabetes mellitus resolved Chronic back pain acute History of CVA (cerebrovascular accident) acute HTN (hypertension) acute Hyperlipidemia acute Hypothyroid acute Lower extremity weakness acu te Migraines acute Right sided weakness acute Uncontrolled hypertension ac [place] History of TIA (transient ischemic attack) chronic Type 2 diabetes mellitus chr onic Intractable headache acute Lower extremity weakness acu te Migraines acute Right sided weakness acute Uncontrolled hypertension ac [place] History of TIA (transient ischemic attack) chronic [facility] Work Phone: Evaluation note* Diagnosis Chronic migraine without aura, intractable, without status migrainosus- Primary [facility] Diagnosis Onset Date Resolution Status HTN (hypertension) acute Lower extremity weakness acu te TIA (transient ischemic attack) acute Diabetes mellitus resolved Chronic back pain acute History of CVA (cerebrovascular accident) acute HTN (hypertension) acute Hyperlipidemia acute Hypothyroid acute Lower extremity weakness acu te Migraines acute Right sided weakness acute Uncontrolled hypertension ac [place] History of TIA (transient ischemic attack) chronic Type 2 diabetes mellitus chr onic Intractable headache acute Lower extremity weakness acu te Migraines acute Right sided weakness acute Uncontrolled hypertension ac [place] History of TIA (transient ischemic attack) chronic Chronic back pain acute HTN (hypertension) acute Hypothyroid acute Stroke-like symptoms acute Type 2 diabetes mellitus chr [facility] Work Phone: Evaluation note* Diagnosis Onset Date Resolution Status Chronic back pain acute History of CVA (cerebrovascular accident) acute HTN (hypertension) acute Hyperlipidemia acute Hypothyroid acute Lower extremity weakness acu te Migraines acute Right sided weakness acute Uncontrolled hypertension ac [place] History of TIA (transient ischemic attack) chronic Type 2 diabetes mellitus chr onic Intractable headache acute Lower extremity weakness acu te Migraines acute Right sided weakness acute Uncontrolled hypertension ac [place] History of TIA (transient ischemic attack) chronic Chronic back pain acute HTN (hypertension) acute Hypothyroid acute Stroke-like symptoms acute Type 2 diabetes mellitus chr [facility] Work Phone: Evaluation note* Diagnosis Onset Date Resolution Status Leg paresthesia acute Lumbar radiculopathy acute Multiple falls acute Spondylolisthesis, lumbar region acute [facility] Work Phone: Evaluation note* Diagnosis Onset Date Resolution Status Leg paresthesia acute Lumbar radiculopathy acute Multiple falls acute Spondylolisthesis, lumbar region acute Age-related osteoporosis wit hout current pathological fracture noneactive Chronic pain acute Lumbosacral spondylosis acut e Neuropathy acute [facility] Work Phone: Evaluation note* Diagnosis Onset Date Resolution Status Leg paresthesia acute Lumbar radiculopathy acute Multiple falls acute Spondylolisthesis, lumbar region acute Age-related osteoporosis wit hout current pathological fracture noneactive Chronic pain acute Lumbosacral spondylosis acut e Neuropathy acute Diabetes mellitus acute HTN (hypertension) acute Hypothyroidism acute Migraines acute [facility] Work Phone: Evaluation note* Diagnosis Onset Date Resolution Status Leg paresthesia acute Lumbar radiculopathy acute Multiple falls acute Spondylolisthesis, lumbar region acute Age-related osteoporosis wit hout current pathological fracture noneactive Chronic pain acute Lumbosacral spondylosis acut e Neuropathy acute Diabetes mellitus acute HTN (hypertension) acute Hypothyroidism acute Migraines acute Chronic pain acute Lumbosacral spondylosis acut e Neuropathy acute Sacroiliitis acute [facility] Work Phone: Evaluation note* Diagnosis Onset Date Resolution Status Leg paresthesia acute Lumbar radiculopathy acute Multiple falls acute Spondylolisthesis, lumbar region acute Age-related osteoporosis wit hout current pathological fracture noneactive Chronic pain acute Lumbosacral spondylosis acut e Neuropathy acute Diabetes mellitus acute HTN (hypertension) acute Hypothyroidism acute Migraines acute Chronic pain acute Lumbosacral spondylosis acut e Neuropathy acute Sacroiliitis acute Low back pain acute Spondylolisthesis, lumbar region acute [facility] Work Phone: Evaluation note* Diagnosis Onset Date Resolution Status Leg paresthesia acute Lumbar radiculopathy acute Multiple falls acute Spondylolisthesis, lumbar region acute Age-related osteoporosis wit hout current pathological fracture noneactive Chronic pain acute Lumbosacral spondylosis acut e Neuropathy acute Diabetes mellitus acute HTN (hypertension) acute Hypothyroidism acute Migraines acute Chronic pain acute Lumbosacral spondylosis acut e Neuropathy acute Sacroiliitis acute Low back pain acute Spondylolisthesis, lumbar region acute Chronic pain acute Lumbosacral spondylosis acut e Trochanteric bursitis of left hip acute Trochanteric bursitis of right hip acute [facility] Work Phone: Evaluation note* Diagnosis Onset Date Resolution Status Chronic pain acute Lumbosacral spondylosis acut e Neuropathy acute Sacroiliitis acute Low back pain acute Spondylolisthesis, lumbar region acute Chronic pain acute Lumbosacral spondylosis acut e Trochanteric bursitis of left hip acute Trochanteric bursitis of right hip acute [facility] Work Phone: Evaluation note* Diagnosis Onset Date Resolution Status Low back pain acute Spondylolisthesis, lumbar region acute Chronic pain acute Lumbosacral spondylosis acut e Trochanteric bursitis of left hip acute Trochanteric bursitis of right hip acute Lumbar spinal stenosis acute Multiple falls acute TIA (transient ischemic attack) acute [facility] Work Phone: Evaluation note* Diagnosis Onset Date Resolution Status Lumbar spinal stenosis acute Multiple falls acute TIA (transient ischemic attack) acute HTN (hypertension) acute Lower extremity weakness acu te Lumbar spinal stenosis acute Onychomycosis acute Type 2 diabetes mellitus chr onic [facility] Work Phone: Evaluation note* Diagnosis Onset Date Resolution Status HTN (hypertension) acute Lower extremity weakness acu te Lumbar spinal stenosis acute Onychomycosis acute Type 2 diabetes mellitus chr onic Near syncope acute Unable to ambulate acute [facility] Work Phone: Evaluation note* Diagnosis Onset Date Resolution Status HTN (hypertension) acute Lower extremity weakness acu te Lumbar spinal stenosis acute Onychomycosis acute Type 2 diabetes mellitus chr onic Near syncope resolved Unable to ambulate resolved [facility] Work Phone: Evaluation note* Diagnosis Intractable chronic migraine without aura and without status migrainosus (CMS/HCC) [facility] Diagnosis Acute rhinosinusitis- Primary Nausea Nausea alone [facility] Diagnosis Intractable chronic migraine without aura and without status migrainosus (CMS/HCC)- Primary [facility] Diagnosis Intractable chronic migraine without aura and with status migrainosus (CMS/HCC)- Primary [facility] Diagnosis Lumbar radiculopathy Thoracic or lumbosacral neuritis or radiculitis, unspecified [facility] Diagnosis Lumbar radiculopathy Thoracic or lumbosacral neuritis or radiculitis, unspecified [facility] Diagnosis Lumbar radiculopathy- Primary Thoracic or lumbosacral neuritis or radiculitis, unspecified Intractable chronic migraine without aura and without status migrainosus (CMS/HCC) Cerebrovascular accident (CVA), unspecified mechanism (CMS/HCC) Migraine variant (CMS/HCC) Variants of migraine, not elsewhere classified, without mention of intractable migraine without mention of status migrainosus Radiculopathy, lumbar region Thoracic or lumbosacral neuritis or radiculitis, unspecified [facility] Diagnosis Lumbar radiculopathy- Primary Thoracic or lumbosacral neuritis or radiculitis, unspecified Intractable chronic migraine without aura and with status migrainosus (CMS/HCC) TIA (transient ischemic attack) Unspecified transient cerebral ischemia Weakness Other malaise and fatigue [facility] Diagnosis Lumbar radiculopathy Thoracic or lumbosacral neuritis or radiculitis, unspecified [facility] Diagnosis Intractable chronic migraine without aura and with status migrainosus (CMS/HCC)- Primary [facility] Author Anjali Rosario [facility] January 26, 2023 11:12pm Note Date/Time January 26, 2023 11:12p m [facility] [address] [place] [address] Hospitalist H&P Signed Patient: Jennifer Rothman MR#: [id number] : 1960 Acct:[id number] Age/Sex: 62 / F Adm Date: 3 Loc: Room: [address] [place] [address] Type: ADM INOo Attending Dr: Anjali Rosario MD Copies to: Isidro Reyes MD~ HPI DATE OF EXAMINATION: 01/26/23 CHIEF COMPLAINT: Left-sided numbness and weakness HISTORY OF PRESENT ILLNESS: 62 years old female with a history of previous stroke presented with complaints of sudden onset of left-sided numbness and tingling associated with weakness of the left upper, lower extremity as well as left-sided facial tingling. No reported headache, no vision problems, no speech difficulties, no facial droop noted. Symptoms lasted for about 45 minutes. Upon presenting to emergency roomCT scan of the head/CTA of the head and neck was done which did not reveal any acute findings. Upon my evaluation patient was back to her baseline. She denied any shortness of breath any chest pain any palpitations any dizziness. She denies any cough any fevers. She denies any abdominal pain. Nonausea no vomiting no diarrhea. No dysuria. Patient does have a history of cluster headaches, but currently denies any headaches 10 systems are reviewed and are negative apart what is mentioned in H&P General -patient is awake alert oriented ?3, does not appear to be in distress HEENT -normal oropharyngeal mucosa without any ulcers or exudates Cardiovascular -S1 plus S2, with regular rate, without any murmurs, gallops, rubs Pulmonary -clear to auscultation bilaterally Gastrointestinal -abdomen is soft, nondistended, nontender, bowel sounds positive, no rigidity, no rebound Genitourinary -deferred Musculoskeletal -no significant joint swelling Neurological -no facial asymmetry noted, pupils are equal and symmetrical, extraocular muscle intact, no nystagmus, motor function 5 out of 5 in upper and lower extremities, sensation 5 out of 5 in upper and lower extremities, however significant generalized weakness was noted in lower extremities, bilaterally, finger to nose test performed well without any dysmetria Skin -no significant ulcers, no rash noted Extremities - no edema in bilateral lower extremities noted Psychiatry - appropriate affect Laboratory work up, imaging studies reviewed EKG personally reviewed by me normal sinus rhythm without ST-T wave changes withnonspecific, with ventricular rate 93 Previous records in the computer system reviewed [facility] Vaccinated for COVID-19?: No Medical History (Updated 01/26/23 @ 21:44 by Ernie Oliver Jr, MD) Alopecia Autoimmune disease Alopecia Blind left eye Cluster headache 2017 without deficiets. Diabetes mellitus Type II HTN (hypertension) Hypothyroid Kidney stone 2021 Migraines TIA (transient ischemic attack) Surgical History H/O hernia repair History of bilateral carpal tunnel release History of ear surgery History of ureteroscopy kidney stone removal Hx of cholecystectomy Hx of rotator cuff surgery bilateral Previous section Family History Father Prostate CA Diabetes Heart valve replaced Mother Hypertension Dementia High cholesterol Social History Smoking Status: Never smoker Substance Use Type: None Meds Medications and Allergies Allergies No Known Allergies Allergy (Verified 01/26/23 20:45) Home Medications clopidogrel 75 mg tablet (Plavix) 75 mg PO DAILY hx tia 11/02/17 [History Confirmed 01/26/23] lisinopril 10 mg tablet (Zestril) 10 mg PO QAM htn 11/02/17 [History Confirmed 01/26/23] metformin 1,000 mg tablet 1,000 mg PO BID DM 11/02/17 [History Confirmed 01/26/23] levothyroxine 112 mcg tablet (Synthroid) 112 mcg PO QAM hypothyroid 07/27/18 [History Confirmed 01/26/23] flaxseed oil 1,000 mg capsule 1,000 mg PO BID 03/08/19 [History Confirmed 01/26/23] magnesium 250 mg tablet 500 mg PO DAILY 03/08/19 [History Confirmed 01/26/23] cyclobenzaprine 10 mg tablet 10 mg PO BID 12/15/21 [History Confirmed 01/26/23] semaglutide 1 mg/dose (4 mg/3 mL) subcutaneous pen injector (Ozempic) 2 mg subcut DIRECTED 12/15/21 [History Confirmed 01/26/23] cholecalciferol (vitamin D3) 25 mcg (1,000 unit) tablet (Vitamin D3) 1,000 unit PO DAILY 12/21/21 [History Confirmed 01/26/23] niacin 500 mg tablet (Niacor) 500 mg PO BID 12/21/21 [History Confirmed 01/26/23] pregabalin 100 mg capsule (Lyrica) 100 mg PO QAM 12/21/21 [History Confirmed 01/26/23] pregabalin 50 mg capsule (Lyrica) 150 mg PO QHS 12/21/21 [History Confirmed 01/26/23] vitamin B complex 1 cap PO DAILY 12/21/21 [History Confirmed 01/26/23] atogepant 60 mg tablet (Qulipta) 60 mg PO DAILY 12/03/22 [History Confirmed 01/26/23] fremanezumab-vfrm 225 mg/1.5 mL subcutaneous syringe (Ajovy Syringe) See Rx Instructions .Route .COMPLEX 01/26/23 [History Confirmed 01/26/23] Exam Physical Exam Vital Signs: Temp Pulse Resp BP Pulse Ox O2 Del Method 36.4 C 76 20 135/79 98 Room Air 01/26/23 20:39 01/26/23 22:47 01/26/23 22:47 01/26/23 22:47 01/26/23 22:47 01/26/23 22:47 Results Lab Results Labs: Laboratory Last Values Corrected WBC 7.3 X10E3/uL (3.8-11.6) 01/26/23 20:20 Uncorrected WBC Count 7.3 x10E3/uL (3.8-11.6) 01/26/23 20:20 RBC 4.73 X10E6/uL (3.60-5.00) 01/26/23 20:20 Hgb 13.4 g/dL (11.8-15.4) 01/26/23 20:20 Hct 41.4 % (34.0-46.4) 01/26/23 20:20 MCV 87.5 fl (80-100) 01/26/23 20:20 MCH 28.4 pg (24.7-34.3) 01/26/23 20:20 MCHC 32.5 g/dL (32.0-35.0) 01/26/23 20:20 RDW 13.8 % (11.9-15.3) 01/26/23 20:20 Plt Count 219 x10E3/uL (150-450) 01/26/23 20:20 MPV 9.3 fl (6.3-10.7) 01/26/23 20:20 Neut % (Auto) 56.5 % (.) 01/26/23 20:20 Lymph % (Auto) 35.1 % (.) 01/26/23 20:20 Bledsoe % (Auto) 5.5 % (.) 01/26/23 20:20 Eos % (Auto) 2.1 % (.) 01/26/23 20:20 Baso % (Auto) 0.8 % (.) 01/26/23 20:20 Nucleat RBC Rel Count 0.3 /100 WBC (0-0.5) 01/26/23 20:20 Neut # (Auto) 4.1 x10E3/uL (1.8-7.7) 01/26/23 20:20 Lymph # (Auto) 2.6 x10E3/uL (1.00-4.8) 01/26/23 20:20 Bledsoe # (Auto) 0.4 x10E3/uL (0.0-0.8) 01/26/23 20:20 Eos # (Auto) 0.2 x10E3/uL (0.0-0.45) 01/26/23 20:20 Baso # (Auto) 0.1 x10E3/uL (0.0-0.2) 01/26/23 20:20 Monocyte Dist Width 18.96 % (0.00-20.00) 01/26/23 20:20 PT 11.4 Seconds (9.0-12.9) 01/26/23 20:20 INR 1.0 01/26/23 20:20 APTT 31.9 Seconds (25.1-36.5) 05/07/23 20:20 PHA Creatinine Clear 105.73 01/26/23 20:20 Sodium 136 mmol/L (136-145) 01/26/23 20:20 Potassium 4.1 mmol/L (3.5-5.1) 01/26/23 20:20 Chloride 102 mmol/L (98-107) 01/26/23 20:20 Carbon Dioxide 22.1 mmol/L (21.0-31.0) 01/26/23 20:20 Anion Gap 16.0 mEq/L (6.0-15.0) H 01/26/23 20:20 BUN 13 mg/dL (7-25) 01/26/23 20:20 Creatinine 0.66 mg/dL (0.60-1.20) 01/26/23 20:20 Est GFR (CKD-EPI) > 60.0 mL/Min 01/26/23 20:20 Glucose 140 mg/dL (70-100) H 01/26/23 20:20 POC Glucose 162 mg/dl 01/26/23 20:17 Calcium 9.8 mg/dL (8.6-10.3) 01/26/23 20:20 Total Bilirubin 0.5 mg/dl (0.3-1.0) 01/26/23 20:20 AST 18 U/L (13-39) 01/26/23 20:20 ALT 17 U/L (7-52) 01/26/23 20:20 Alkaline Phosphatase 71 U/L (34-104) 01/26/23 20:20 Total Creatine Kinase 76 U/L (30-223) 01/26/23 20:20 Troponin I High Sens 3.7 pg/mL (0.0-15.0) 01/26/23 20:20 Total Protein 6.7 gm/dL (6.4-8.9) 01/26/23 20:20 Albumin 4.4 gm/dL (3.5-5.7) 01/26/23 20:20 Globulin 2.3 gm/dL 01/26/23 20:20 Albumin/Globulin Ratio 1.9 01/26/23 20:20 A&P - Hospitalist Assessment/Plan (1) Lower extremity weakness: Plan 1. TIA associated with left-sided lower extremity paresthesias and weakness, resolved CT scan of the head/CTA of the head and neck without acute findings No known history of atrial fibrillation as per patient, currently EKG showing normal sinus Admit to telemetry, continue with Plavix which the patient has been taking sinceepisode of previous stroke Echocardiogram, MRI, neurology consult 2. Diabetes mellitus type 2, continue with home medications, add sliding scale Hold metformin 3. Hypertension, continue with home medications, hydralazine as needed 4. DVT prophylaxis Lovenox The patient care was discussed with the patient the patient's at the bedside Documented By: Anjali Rosario MD 01/26/232306 Signed By: <Electronically signed by Anjali Rosario MD> 01/26/23 [id number] [facility] Work Phone: History and physical note Author Andres Holden [facility] June 06, 2024 8:14pm Note Date/Time June 06, 2024 8:14pm [facility] [address] [place] [address] Hospitalist H&P Signed Patient: Jennifer Rothman MR#: [id number] : 1960 Acct:[id number] Age/Sex: 63 / F Adm Date: 4 Loc: ER Room: Type: [facility] ER Attending Dr: Copies to: HANY Aponte DO~ HPI DATE OF EXAMINATION: 06/06/24 CHIEF COMPLAINT: Weakness HISTORY OF PRESENT ILLNESS: This patient is a 63-year-old female presented to the emergency department earlier this week and again today for refractory weakness. She also endorsed ongoing near syncopal symptoms today. She is described generalized malaise, some vomiting and intermittent diarrhea, sore throat and runny nose over the past few days. Emergency department she exhibited focal deficits but was unableto get out of bed and stand up. Her workup revealed unremarkable labs and chemistries/coagulation studies, viral studies receivable cause of her weakness was elucidated. Given her near syncope and vague complaints she was brought in under observation and further evaluation. Physical Examination: GENERAL APPEARANCE: Alert, lying in bed, ill-appearing, mildly pale HEENT: NCAT, mildly dry mucous membrane CARDIAC: Normal S1 and S2. No S3, S4 or murmurs. LUNGS: Clear to auscultation bilaterally. no wheeze/rhonchi/rales ABDOMEN: Positive bowel sounds. Soft, nontender. No guarding or signs of an acute abdomen MUSCULOSKELETAL: No joint erythema or tenderness. EXTREMITIES: No clubbing, cyanosis or edema PSYCHIATRIC: Appropriate mood and affect Assessment and plan: 1. Lumbar syncope 2. Suspected viral syndrome 3. Nausea and vomiting 4. Diarrheal illness 5. Rhinorrhea 6. Hypertension 7. Hypothyroidism 8. Migraines 9. Lymphopenia Patient vague complaints that are nonspecific many which are consistent with a viral illness. She has progressive nature of symptoms and comes to the ER for second time. She was provided IV fluids and still appears mildly dehydrated. Her initial thyroid studies are relatively benign but will also check a free T3 active hormone to assess thyroid dysfunction. Will check vitamin D, B12, folateand iron studies to further evaluate her generalized complaints. Check orthostatic vital signs. Her echocardiogram last March 2023 showed mild diastolic dysfunction and she has no signs of volume overload presently. Patient did test negative for COVID-19 but does now show lymphopenia a hallmark of COVID-19 and can consider retesting this if viral symptoms continue to raise any suspicion. Consult PT/OT. Will check orthostatic vital signs. [facility] Medical History TIA (transient ischemic attack) Lumbar radiculopathy Hyperlipidemia Diabetes mellitus Sacroiliitis Piriformis syndrome of left side Paresthesias Obesity Neuropathy Nephrolithiasis Migraine, unspecified, not intractable, without status migrainosus Lumbosacral spondylosis Left maxillary sinusitis Nicol's thyroiditis Cluster headache syndrome Chronic pain Asymmetrical breasts Ambulatory dysfunction Alopecia universalis Adjustment disorder with depressed mood Abnormal mammogram History of nephrolithotomy with removal of calculi Chronic back pain Lacunar stroke Blind left eye HTN (hypertension) Pyelonephritis Diabetes mellitus Autoimmune disease Conversion disorder Anxiety disorder Surgical History History of repair of rotator cuff Previous section H/O hernia repair History of ureteroscopy History of ear surgery History of bilateral carpal tunnel release Hx of cholecystectomy Family History Father Heart valve replaced Prostate CA Diabetes Type 2 diabetes mellitus Mother High cholesterol Dementia Hypertension Aunt/Uncle Cancer Legacy FamHx Relation: Paternal aunt; Legacy FamHx Problem: Diagnosed with Cancer Aunt/Uncle Legacy FamHx Relation: Paternal uncle Grandparent Legacy FamHx Relation: Maternal Grand Father Grandparent Legacy FamHx Relation: Maternal Grand Mother Grandparent Legacy FamHx Relation: Paternal Grand Father Grandparent Legacy FamHx Relation: Paternal Grand Mother Social History Smoking Status: Never smoker Substance Use Type: None Meds Medications and Allergies Allergies Kuetabb-DER-OaW Reductase Inhibitor Adverse Reaction (Mild, Verified 06/06/24 14:36) Unknown Reaction Home Medications clopidogrel 75 mg tablet (Plavix) 75 mg PO DAILY hx tia 11/02/17 [History Confirmed 06/06/24] pregabalin 100 mg capsule (Lyrica) 100 mg PO QAM 12/21/21 [History Confirmed 06/06/24] pregabalin 50 mg capsule (Lyrica) 150 mg PO QHS 12/21/21 [History Confirmed 06/06/24] aspirin 81 mg capsule 81 mg PO DAILY #90 caps 01/27/23 [Rx Confirmed 06/06/24] rimegepant 75 mg disintegrating tablet (Nurtec ODT) 75 mg PO DAILY PRN Migraine Headache 04/16/23 [History Confirmed 06/06/24] melatonin 10 mg tablet 10 mg PO HS PRN Insomnia 08/20/23 [History Confirmed 06/06/24] lasmiditan 50 mg tablet (Reyvow) 100 mg PO DAILY PRN headaches 11/05/23 [History Confirmed 06/06/24] atogepant 60 mg tablet (Qulipta) 60 mg PO DAILY 11/13/23 [History Confirmed 06/06/24] magnesium oxide 500 mg PO DAILY 11/13/23 [History Confirmed 06/06/24] clobetasol 0.05 % topical ointment 1 applic topical DAILY PRN eczema 11/27/23 [History Confirmed 06/06/24] emollient combination no.101 (Ceramax topical cream) 1 applic topical DAILY PRN eczema 11/27/23 [History Confirmed 06/06/24] lisinopril 10 mg tablet See Rx Instructions .Route .COMPLEX #90 tabs 02/02/24 [Rx Confirmed 06/06/24] niacin 500 mg tablet,extended release 24 hr 1,000 mg PO BID 04/05/24 [History Confirmed 06/06/24] semaglutide 2 mg/dose (8 mg/3 mL) subcutaneous pen injector 2 mg (0.75 mL) subcut QWEEK #3 mL 04/05/24 [Rx Confirmed 06/06/24] levothyroxine 75 mcg tablet See Rx Instructions .Route .COMPLEX #90 tabs 05/31/24 [Rx Confirmed 06/06/24] metformin 1,000 mg tablet 1,000 mg PO BID 06/02/24 [History Confirmed 06/06/24] tizanidine 4 mg tablet 2 mg PO BID 06/02/24 [History Confirmed 06/06/24] Exam Physical Exam Vital Signs: Temp Pulse Resp BP Pulse Ox O2 Del Method 97.9 F 59 L 18 154/72 H 98 Room Air 06/06/24 14:51 06/06/24 19:02 06/06/24 19:02 06/06/24 19:02 06/06/24 19:02 06/06/24 19:02 Results - Hospitalist H&P Lab Results Labs: Laboratory Last Values Corrected WBC 5.8 X10E3/uL (3.8-11.6) 06/06/24 15:11 Uncorrected WBC Count 5.8 x10E3/uL (3.8-11.6) 06/06/24 15:11 RBC 4.58 X10E6/uL (3.60-5.00) 06/06/24 15:11 Hgb 13.2 g/dL (11.8-15.4) 06/06/24 15:11 Hct 40.7 % (34.0-46.4) 06/06/24 15:11 MCV 88.8 fl (80-100) 06/06/24 15:11 MCH 28.8 pg (24.7-34.3) 06/06/24 15:11 MCHC 32.4 g/dL (32.0-35.0) 06/06/24 15:11 RDW 14.4 % (11.9-15.3) 06/06/24 15:11 Plt Count 199 x10E3/uL (150-450) 06/06/24 15:11 MPV 8.9 fl (6.3-10.7) 06/06/24 15:11 Neut % (Auto) 74.5 % (.) 06/06/24 15:11 Lymph % (Auto) 13.7 % (.) 06/06/24 15:11 Bledsoe % (Auto) 8.7 % (.) 06/06/24 15:11 Eos % (Auto) 2.2 % (.) 06/06/24 15:11 Baso % (Auto) 0.9 % (.) 06/06/24 15:11 Nucleat RBC Rel Count 0.0 /100 WBC (0-0.5) 06/06/24 15:11 Neut # (Auto) 4.4 x10E3/uL (1.8-7.7) 06/06/24 15:11 Lymph # (Auto) 0.8 x10E3/uL (1.00-4.8) L 06/06/24 15:11 Bledsoe # (Auto) 0.5 x10E3/uL (0.0-0.8) 06/06/24 15:11 Eos # (Auto) 0.1 x10E3/uL (0.0-0.45) 06/06/24 15:11 Baso # (Auto) 0.1 x10E3/uL (0.0-0.2) 06/06/24 15:11 Monocyte Dist Width 17.00 % (0.00-20.00) 06/06/24 15:11 PT 12.1 Seconds (9.0-12.9) 06/06/24 15:11 INR 1.0 06/06/24 15:11 APTT 26.7 Seconds (25.1-36.5) 06/06/24 15:11 PHA Creatinine Clear 79.93 06/06/24 15:11 Sodium 138 mmol/L (136-145) 06/06/24 15:11 Potassium 3.7 mmol/L (3.5-5.1) 06/06/24 15:11 Chloride 106 mmol/L (98-107) 06/06/24 15:11 Carbon Dioxide 25.1 mmol/L (21.0-31.0) 06/06/24 15:11 Anion Gap 10.6 mEq/L (6.0-15.0) 06/06/24 15:11 BUN 8 mg/dL (7-25) 06/06/24 15:11 Creatinine 0.89 mg/dL (0.60-1.20) 06/06/24 15:11 Est GFR (CKD-EPI) > 60.0 mL/Min 06/06/24 15:11 Glucose 161 mg/dL (70-100) H 06/06/24 15:11 POC Glucose 153 mg/dl 06/06/24 15:05 Calcium 8.6 mg/dL (8.6-10.3) 06/06/24 15:11 Magnesium 2.0 mg/dL (1.9-2.7) 06/06/24 15:11 Total Bilirubin 0.6 mg/dl (0.3-1.0) 06/06/24 15:11 AST 22 U/L (13-39) 06/06/24 15:11 ALT 17 U/L (7-52) 06/06/24 15:11 Alkaline Phosphatase 72 U/L (34-104) 06/06/24 15:11 Total Creatine Kinase 93 U/L (30-223) 06/06/24 15:11 Troponin I High Sens 3.3 pg/mL (0.0-15.0) 06/06/24 17:47 Total Protein 6.0 gm/dL (6.4-8.9) L 06/06/24 15:11 Albumin 3.9 gm/dL (3.5-5.7) 06/06/24 15:11 Globulin 2.1 gm/dL 06/06/24 15:11 Albumin/Globulin Ratio 1.9 06/06/24 15:11 Free T4 1.02 ng/dL (0.61-1.12) 06/06/24 15:11 TSH 3rd Generation 1.46 uIU/mL (0.45-5.33) 06/06/24 15:11 Urine Color Colorless (Yellow) 06/06/24 18:06 Urine Appearance Clear (Clear) 06/06/24 18:06 Urine pH 6.5 (5.0-9.0) 06/06/24 18:06 Ur Specific Lefor 1.006 (1.001-1.030) 06/06/24 18:06 Urine Protein Negative mg/dL (Negative) 06/06/24 18:06 Urine Glucose (UA) Normal mg/dL (Normal) 06/06/24 18:06 Urine Ketones Negative (Negative) 06/06/24 18:06 Urine Occult Blood Negative (Negative) 06/06/24 18:06 Urine Nitrite Negative (Negative) 06/06/24 18:06 Urine Bilirubin Negative (Negative) 06/06/24 18:06 Urine Urobilinogen Normal mg/dL (Normal) 06/06/24 18:06 Ur Leukocyte Esterase Negative (Negative) 06/06/24 18:06 COVID-19 Clin Com Not detected (Not Detecte) 06/06/24 15:04 Microbiology Results Micro: Microbiology - Results from entire visit 06/06/24 15:04 Nasopharyngeal Respiratory Panel (PCR) - Final Assessment & Plan Assessment/Plan (1) Near syncope: Plan as above IP vs OBS Justification Based on differential dx, clinical care plan, and risk of adverse events, if untreated, in my clinical judgement this patient requires an acute care setting as: OBSERVATION because of an expectation of an under 2 midnight stay. Estimated length of stay (# of days): 2 Documented By: Andres Holden DO 06/06/24 20 07 Signed By: <Electronically signed by Andres Holden DO> 06/06/242013 [facility] Work Phone: Hospital Discharge instructions Additional Instructions There is no obvious stone or infection tonight. The CAT scan looked fine. Please follow-up with your doctor. If you have any concerns or problems, do not hesitate to come back. [facility] Work Phone: Hospital Discharge instructionsAmbulatory Orders* Initiate Home Health Time Frame: 1 Day, Location: Determined By Patient Additional Instructions Home Health to manage care: - Full code - PT/OT eval and treat - Routine vital signs - Medication management and education -[facility] Work Phone: Hospital Discharge instructions Additional Instructions Continue current meds and follow-up with Dr. Lisa Cuadra if symptoms [facility] Work [facility]: Hospital Discharge instructions Additional Instructions Follow-up with Dr. Figueroa as to whether or not you should continue the amitriptyline for your headaches. Increase your intake of fluids and rest. Follow-up with a PCP for recheck next few days.[facility] Work Phone: Hospital Discharge instructions Additional Instructions Monitor glucose levels as before.[facility] Work Phone: Hospital Discharge instructions Additional Instructions Consider holding Plavix for at least 1 day till bleeding stopped. Refrain from nasal bleeding for 2 days.[facility] Work Phone: Chief Complaint and Reason for Visit Chief Complaint right side pain Chief Complaint E11.9 E78.5 E03.8 E03.8 Chief Complaint E03.8 K Back Pain M47.817 Chief Complaint E03.8 M47.817 K Back Pain headache Chief Complaint E03.8 M47.817 K Back Pain headache Back Pain pain Chief Complaint E03.8 M47.817 headache Back Pain pain K Back Pain R Side Pain Chief Complaint M47.817 headache Back Pain pain R Side Pain Back Pain K Back Pain stroke symptoms Reason for Visit Diabetes mellitus HTN (hypertension) Lower extremity weakness TIA (transient ischemic attack) Chief Complaint M47.817 headache Back Pain pain R Side Pain Back Pain K Back Pain stroke symptoms m54.16 Neuro Symptoms Reason for Visit HTN (hypertension) Lower extremity weakness TIA (transient ischemic attack) Diabetes mellitus Chronic back pain History of CVA (cerebrovascular accident) HTN (hypertension) Hyperlipidemia Hypothyroid Lower extremity weakness Migraines Right sided weakness Uncontrolled hypertension History of TIA (transient ischemic attack) Type 2 diabetes mellitus Chief Complaint pain R Side Pain Back Pain K Back Pain stroke symptoms m54.16 Neuro Symptoms R side numbness, headache Reason for Visit HTN (hypertension) Lower extremity weakness TIA (transient ischemic attack) Diabetes mellitus Chronic back pain History of CVA (cerebrovascular accident) HTN (hypertension) Hyperlipidemia Hypothyroid Lower extremity weakness Migraines Right sided weakness Uncontrolled hypertension History of TIA (transient ischemic attack) Type 2 diabetes mellitus Intractable headache Lower extremity weakness Migraines Right sided weakness Uncontrolled hypertension History of TIA (transient ischemic attack) Chief Complaint stroke symptoms m54.16 Neuro Symptoms R side numbness, headache Unsteady walk,confusion,hard to get words out Reason for Visit HTN (hypertension) Lower extremity weakness TIA (transient ischemic attack) Diabetes mellitus Chronic back pain History of CVA (cerebrovascular accident) HTN (hypertension) Hyperlipidemia Hypothyroid Lower extremity weakness Migraines Right sided weakness Uncontrolled hypertension History of TIA (transient ischemic attack) Type 2 diabetes mellitus Intractable headache Lower extremity weakness Migraines Right sided weakness Uncontrolled hypertension History of TIA (transient ischemic attack) Chronic back pain HTN (hypertension) Hypothyroid Stroke-like symptoms Type 2 diabetes mellitus Chief Complaint m54.16 Neuro Symptoms R side numbness, headache Unsteady walk,confusion,hard to get words out I10 E03.8 R82.71 Reason for Visit Chronic back pain History of CVA (cerebrovascular accident) HTN (hypertension) Hyperlipidemia Hypothyroid Lower extremity weakness Migraines Right sided weakness Uncontrolled hypertension History of TIA (transient ischemic attack) Type 2 diabetes mellitus Intractable headache Lower extremity weakness Migraines Right sided weakness Uncontrolled hypertension History of TIA (transient ischemic attack) Chronic back pain HTN (hypertension) Hypothyroid Stroke-like symptoms Type 2 diabetes mellitus Chief Complaint kidney stone Chief Complaint kidney stone Back Pain Chief Complaint kidney stone Back Pain 17470, 20064 Chief Complaint kidney stone Back Pain 55587, 04113 11559, 16879 Chief Complaint 6 Month Follow Up [place] [address], 71023 F/U After Left Followed By Right Ltr 91244, 57533 Follow Up After Lumbar Facet Mbb Back Pain Chief Complaint 6 Month [place] [address], 28814 F/U After Left Followed By Right Ltr 15661, 38838 Follow Up After Lumbar Facet Mbb Back Pain 3 month follow up for low back pain after PT Reason for Visit Leg paresthesia Lumbar radiculopathy Multiple falls Spondylolisthesis, lumbar region Chief Complaint 6 Month Follow Up [place] [address], 95407 F/U After Left Followed By Right Ltr 32783, 04943 Follow Up After Lumbar Facet Mbb Back Pain 3 month follow up for low back pain after PT follow up after lumbar facet mbb Reason for Visit Leg paresthesia Lumbar radiculopathy Multiple falls Spondylolisthesis, lumbar region Age-related osteoporosis without current pathological fracture Chronic pain Lumbosacral spondylosis Neuropathy Chief Complaint 73946, 26665 Follow Up After Lumbar Facet Mbb Back Pain Back Pain 3 month follow up for low back pain after PT follow up after lumbar facet mbb N95.1 Back Pain Back Pain 3 month follow up FOLLOW UP AFTER MICHELL LUMBAR RFA Reason for Visit Leg paresthesia Lumbar radiculopathy Multiple falls Spondylolisthesis, lumbar region Age-related osteoporosis without current pathological fracture Chronic pain Lumbosacral spondylosis Neuropathy Diabetes mellitus HTN (hypertension) Hypothyroidism Migraines Chief Complaint 51007, 86271 Follow Up After Lumbar Facet Mbb Back Pain Back Pain 3 month follow up for low back pain after PT follow up after lumbar facet mbb N95.1 Back Pain Back Pain 3 month follow up FOLLOW UP AFTER MICHELL LUMBAR RFA R side pain Reason for Visit Leg paresthesia Lumbar radiculopathy Multiple falls Spondylolisthesis, lumbar region Age-related osteoporosis without current pathological fracture Chronic pain Lumbosacral spondylosis Neuropathy Diabetes mellitus HTN (hypertension) Hypothyroidism Migraines Chronic pain Lumbosacral spondylosis Neuropathy Sacroiliitis Chief Complaint 91151, 69826 Follow Up After Lumbar Facet Mbb Back Pain Back Pain 3 month follow up for low back pain after PT follow up after lumbar facet mbb N95.1 Back Pain Back Pain 3 month follow up FOLLOW UP AFTER MICHELL LUMBAR RFA R side pain surgical consult Reason for Visit Leg paresthesia Lumbar radiculopathy Multiple falls Spondylolisthesis, lumbar region Age-related osteoporosis without current pathological fracture Chronic pain Lumbosacral spondylosis Neuropathy Diabetes mellitus HTN (hypertension) Hypothyroidism Migraines Chronic pain Lumbosacral spondylosis Neuropathy Sacroiliitis Low back pain Spondylolisthesis, lumbar region Chief Complaint Back Pain Back Pain 3 month follow up for low back pain after PT follow up after lumbar facet mbb N95.1 Back Pain Back Pain 3 month follow up FOLLOW UP AFTER MICHELL LUMBAR RFA R side pain surgical consult hip pain Reason for Visit Leg paresthesia Lumbar radiculopathy Multiple falls Spondylolisthesis, lumbar region Age-related osteoporosis without current pathological fracture Chronic pain Lumbosacral spondylosis Neuropathy Diabetes mellitus HTN (hypertension) Hypothyroidism Migraines Chronic pain Lumbosacral spondylosis Neuropathy Sacroiliitis Low back pain Spondylolisthesis, lumbar region Chronic pain Lumbosacral spondylosis Trochanteric bursitis of left hip Trochanteric bursitis of right hip Chief Complaint FOLLOW UP AFTER MICHELL LUMBAR RFA R side pain surgical consult hip pain Hip pain Hip pain Facial, R arm, Bilat feet numbness Reason for Visit Chronic pain Lumbosacral spondylosis Neuropathy Sacroiliitis Low back pain Spondylolisthesis, lumbar region Chronic pain Lumbosacral spondylosis Trochanteric bursitis of left hip Trochanteric bursitis of right hip Chief Complaint FOLLOW UP AFTER MICHELL LUMBAR RFA R side pain surgical consult hip pain Hip pain Hip pain Facial, R arm, Bilat feet numbness Amb Documentation ER follow up Reason for Visit Chronic pain Lumbosacral spondylosis Neuropathy Sacroiliitis Low back pain Spondylolisthesis, lumbar region Chronic pain Lumbosacral spondylosis Trochanteric bursitis of left hip Trochanteric bursitis of right hip Chief Complaint surgical consult hip pain Hip pain Hip pain Facial, R arm, Bilat feet numbness Amb Documentation ER follow up 4 month follow up Reason for Visit Low back pain Spondylolisthesis, lumbar region Chronic pain Lumbosacral spondylosis Trochanteric bursitis of left hip Trochanteric bursitis of right hip Lumbar spinal stenosis Multiple falls TIA (transient ischemic attack) Chief Complaint Facial, R arm, Bilat feet numbness Amb Documentation ER follow up 4 month follow up E11.9 Z13.6 Z13.29 poss kidney stone Reason for Visit Lumbar spinal stenos is Multiple falls TIA (transient ischemic attack) HTN (hypertension) Lower extremity weakness Lumbar spinal stenosis Onychomycosis Type 2 diabetes mellitus Chief Complaint ER follow up 4 month follow up E11.9 Z13.6 Z13.29 poss kidney stone Weakness Reason for Visit Lumbar spinal stenos is Multiple falls TIA (transient ischemic attack) HTN (hypertension) Lower extremity weakness Lumbar spinal stenosis Onychomycosis Type 2 diabetes mellitus Chief Complaint 4 month follow up E11.9 Z13.6 Z13.29 poss kidney stone Weakness Amb Documentation weakness Reason for Visit HTN (hypertension) Lower extremity weakness Lumbar spinal stenosis Onychomycosis Type 2 diabetes mellitus Near syncope Unable to ambulate Chief Complaint 4 month follow up E11.9 Z13.6 Z13.29 poss kidney stone Weakness Amb Documentation weakness Amb Documentation Reason for Visit HTN (hypertension) Lower extremity weakness Lumbar spinal stenosis Onychomycosis Type 2 diabetes mellitus Near syncope Unable to ambulate Chief Complaint Admit Date poss kidney stone May 20, 2024 10 :29am Weakness June 02, 2024 10:55am Amb Documentation June 03, 2024 12:44pm weakness June 06, 2024 7:08pm Amb Documentation June 09, 2024 11:04am [email or web address] August 03, 2024 11:18am Reason for Visit Admit Date Near syncope June 06, 2024 7:08pm Unable to ambulate June 06, 2024 7:08pm Hospital discharge follow-up May [id number] 4:15pm Nausea June 14, 2024 4:15pm Chief Complaint Admit Date poss kidney stone May 20, 2024 10 :29am Weakness June 02, 2024 10:55am Amb Documentation June 03, 2024 12:44pm weakness June 06, 2024 7:08pm Amb Documentation June 09, 2024 11:04am [email or web address] August 03, 2024 11:18am 4 month follow up August 09, 2024 8:22am Reason for Visit Admit Date Near syncope June 06, 2024 7:08pm Unable to ambulate June 06, 2024 7:08pm Hospital discharge follow-up May [id number] 4:15pm Nausea June 14, 2024 4:15pm Type 2 diabetes mellitus August 09, 2024 8:22am Chief Complaint Admit Date [email or web address] August 03, 2024 11:18am 4 month follow up August 09, 2024 8:22am low back pain September 07, 2024 9:43am pain in her joints September 13, 2024 3:09pm M25.50 Z13.0 September 14, 2024 9:31am Referral Order September 17, 2024 9:02am 2 weeks September 27, 2024 9: 22am Reason for Visit Admit Date HTN (hypertension) August 09, 2024 8:22am Hyperlipidemia August 09, 2024 8:22am Hypothyroid August 09, 2024 8:22am Lumbar spinal stenosis August 09 8:22am Nausea August 09, 2024 8:22am Type 2 diabetes mellitus August 09, 2024 8:22am Chronic pain September 07, 2024 9:43am Lumbosacral spondylosis September 07, 2 024 9:43am Sacroiliitis September 07, 2024 9:43am Arthralgia September 13, 2024 3:09pm Diabetes mellitus September 13, 2024 3:09pm Chief Complaint Admit Date n20.0 August 03, 2024 11:18am 4 month follow up August 09, 2024 8:22am low back pain September 07, 2024 9:43am pain in her joints September 13, 2024 3:09pm M25.50 Z13.0 September 14, 2024 9:31am Referral Order September 17, 2024 9:02am 2 weeks September 27, 2024 9: 22am Back Pain September 29, 2024 9: 20am Reason for Visit Admit Date HTN (hypertension) August 09, 2024 8:22am Hyperlipidemia August 09, 2024 8:22am Hypothyroid August 09, 2024 8:22am Lumbar spinal stenosis August 09 8:22am Nausea August 09, 2024 8:22am Type 2 diabetes mellitus August 09, 2024 8:22am Chronic pain September 07, 2024 9:43am Lumbosacral spondylosis September 07 024 9:43am Sacroiliitis September 07, 2024 9:43am Arthralgia September 13, 2024 3:09pm Diabetes mellitus September 13, 2024 3:09pm Rheumatoid arthritis September 27, 2024 9 :22am Chief Complaint Admit Date n20.0 August 03, 2024 11:18am 4 month follow up August 09, 2024 8:22am low back pain September 07, 2024 9:43am pain in her joints September 13, 2024 3:09pm M25.50 Z13.0 September 14, 2024 9:31am Referral Order September 17, 2024 9:02am 2 weeks September 27, 2024 9: 22am Back Pain September 29, 2024 9: 20am Back Pain September 29, 2024 10 :47am follow up after SI October 06, 2024 2 :08pm Reason for Visit Admit Date HTN (hypertension) August 09, 2024 8:22am Hyperlipidemia August 09, 2024 8:22am Hypothyroid August 09, 2024 8:22am Lumbar spinal stenosis August 09 8:22am Nausea August 09, 2024 8:22am Type 2 diabetes mellitus August 09, 2024 8:22am Chronic pain September 07, 2024 9:43am Lumbosacral spondylosis September 07 2 024 9:43am Sacroiliitis September 07, 2024 9:43am Arthralgia September 13, 2024 3:09pm Diabetes mellitus September 13, 2024 3:09pm Rheumatoid arthritis September 27, 2024 9 :22am Chronic pain October 06, 2024 2 :08pm Lumbosacral spondylosis October 06 2:08pm Sacroiliitis October 06, 2024 2 :08pm Trochanteric bursitis of left hip Anthonyuar y 2024 2:08pm Trochanteric bursitis of right hip Anthonyua ry 2024 2:08pm Chief Complaint Admit Date n20.0 August 03, 2024 11:18am 4 month follow up August 09, 2024 8:22am low back pain September 07, 2024 9:43am pain in her joints September 13, 2024 3:09pm M25.50 Z13.0 September 14, 2024 9:31am Referral Order September 17, 2024 9:02am 2 weeks September 27, 2024 9: 22am Back Pain September 29, 2024 9: 20am Back Pain September 29, 2024 10 :47am follow up after SI October 06, 2024 2 :08pm Back Pain October 13, 2024 9 :56am Back Pain October 13, 2024 1 1:04am Chief Complaint Admit Date n20.0 August 03, 2024 11:18am 4 month follow up August 09, 2024 8:22am low back pain September 07, 2024 9:43am pain in her joints September 13, 2024 3:09pm M25.50 Z13.0 September 14, 2024 9:31am Referral Order September 17, 2024 9:02am 2 weeks September 27, 2024 9: 22am Back Pain September 29, 2024 9: 20am Back Pain September 29, 2024 10 :47am follow up after SI October 06, 2024 2 :08pm Back Pain October 13, 2024 9 :56am Back Pain October 13, 2024 1 1:04am nosebleed October 18, 2024 9 :51am Chief Complaint Admit Date n20.0 August 03, 2024 11:18am 4 month follow up August 09, 2024 8:22am low back pain September 07, 2024 9:43am pain in her joints September 13, 2024 3:09pm M25.50 Z13.0 September 14, 2024 9:31am Referral Order September 17, 2024 9:02am 2 weeks September 27, 2024 9: 22am Back Pain September 29, 2024 9: 20am Back Pain September 29, 2024 10 :47am follow up after SI October 06, 2024 2 :08pm Back Pain October 13, 2024 9 :56am Back Pain October 13, 2024 1 1:04am nosebleed October 18, 2024 9 :51am hand pain October 18, 2024 1 :18pm Amb Documentation October 25, 2024 8 :52am Amb Documentation October 26, 2024 8 :23am 2 week f/u after michell lumbar RFA October 27, 2024 9:28am Reason for Visit Admit Date HTN (hypertension) August 09, 2024 8:22am Hyperlipidemia August 09, 2024 8:22am Hypothyroid August 09, 2024 8:22am Lumbar spinal stenosis August 09 8:22am Nausea August 09, 2024 8:22am Type 2 diabetes mellitus August 09, 2024 8:22am Chronic pain September 07, 2024 9:43am Lumbosacral spondylosis September 07, 2 024 9:43am Sacroiliitis September 07, 2024 9:43am Arthralgia September 13, 2024 3:09pm Diabetes mellitus September 13, 2024 3:09pm Rheumatoid arthritis September 27, 2024 9 :22am Chronic pain October 06, 2024 2 :08pm Lumbosacral spondylosis October 06 2:08pm Sacroiliitis October 06, 2024 2 :08pm Trochanteric bursitis of left hip Januar y 2024 2:08pm Trochanteric bursitis of right hip Janua ry 2024 2:08pm Chronic pain October 27, 2024 9 :28am Lumbosacral spondylosis October 27 9:28am Sacroiliitis October 27, 2024 9 :28am Trochanteric bursitis of left hip Februa ry 2024 9:28am Trochanteric bursitis of right hip Febru sangita 2024 9:28am Chief Complaint Admit Date low back pain September 07, 2024 9:43am pain in her joints September 13, 2024 3:09pm M25.50 Z13.0 September 14, 2024 9:31am Referral Order September 17, 2024 9:02am 2 weeks September 27, 2024 9: 22am Back Pain September 29, 2024 9: 20am Back Pain September 29, 2024 10 :47am follow up after SI October 06, 2024 2 :08pm Back Pain October 13, 2024 9 :56am Back Pain October 13, 2024 1 1:04am nosebleed October 18, 2024 9 :51am hand pain October 18, 2024 1 :18pm Amb Documentation October 25, 2024 8 :52am Amb Documentation October 26, 2024 8 :23am 2 week f/u after michell lumbar RFA October 27, 2024 9:28am Depression/ Anxiety November 09, 2024 10:18am Reason for Visit Admit Date Chronic pain September 07, 2024 9:43am Lumbosacral spondylosis September 07, 2 024 9:43am Sacroiliitis September 07, 2024 9:43am Arthralgia September 13, 2024 3:09pm Diabetes mellitus September 13, 2024 3:09pm Rheumatoid arthritis September 27, 2024 9 :22am Chronic pain October 06, 2024 2 :08pm Lumbosacral spondylosis October 06 2:08pm Sacroiliitis October 06, 2024 2 :08pm Trochanteric bursitis of left hip Januar y 2024 2:08pm Trochanteric bursitis of right hip Janua ry 2024 2:08pm Chronic pain October 27, 2024 9 :28am Lumbosacral spondylosis October 27 9:28am Sacroiliitis October 27, 2024 9 :28am Trochanteric bursitis of left hip Februa ry 2024 9:28am Trochanteric bursitis of right hip Febru sangita 2024 9:28am Chief Complaint Admit Date low back pain September 07, 2024 9:43am pain in her joints September 13, 2024 3:09pm M25.50 Z13.0 September 14, 2024 9:31am Referral Order September 17, 2024 9:02am 2 weeks September 27, 2024 9: 22am Back Pain September 29, 2024 9: 20am Back Pain September 29, 2024 10 :47am follow up after SI October 06, 2024 2 :08pm Back Pain October 13, 2024 9 :56am Back Pain October 13, 2024 1 1:04am nosebleed October 18, 2024 9 :51am hand pain October 18, 2024 1 :18pm Amb Documentation October 25, 2024 8 :52am Amb Documentation October 26, 2024 8 :23am 2 week f/u after michell lumbar RFA October 27, 2024 9:28am Depression/ Anxiety November 09, 2024 10:18am reaction to meds November 14, 2024 9:58am Reason for Visit Admit Date Chronic pain September 07, 2024 9:43am Lumbosacral spondylosis September 07 9:43am Sacroiliitis September 07, 2024 9:43am Arthralgia September 13, 2024 3:09pm Diabetes mellitus September 13, 2024 3:09pm Rheumatoid arthritis September 27, 2024 9 :22am Chronic pain October 06, 2024 2 :08pm Lumbosacral spondylosis October 06 2:08pm Sacroiliitis October 06, 2024 2 :08pm Trochanteric bursitis of left hip Januar y 2024 2:08pm Trochanteric bursitis of right hip Janua ry 2024 2:08pm Chronic pain October 27, 2024 9 :28am Lumbosacral spondylosis October 27 9:28am Sacroiliitis October 27, 2024 9 :28am Trochanteric bursitis of left hip Februa ry 2024 9:28am Trochanteric bursitis of right hip Febru sangita 2024 9:28am Anxiety November 09, 2024 10:18am Family History Relationship Condition Age at Onset Recorded Date/T kali father Malignant neoplasm of prostate Unknown Diabetes mellitus Unknown History of heart valve replacement Unknow n Not Specified Hypertension Unknown Dementia Unknown High blood cholesterol Unknown Relationship Condition Age at Onset Recorded Date/T kali father Malignant neoplasm of prostate Unknown Diabetes mellitus Unknown History of heart valve replacement Unknow n Not Specified Hypertension Unknown Dementia Unknown High blood cholesterol Unknown family member Malignant neoplasm Unknown family member Unknown father Type 2 diabetes mellitus Unknown grandparent Unknown Relationship Condition Age at Onset Recorded Date/T kali father History of heart valve replacement Unknow n Malignant neoplasm of prostate Unknown Diabetes mellitus Unknown Type 2 diabetes mellitus Unknown Not Specified High blood cholesterol Unknown Dementia Unknown Hypertension Unknown family member Malignant neoplasm Unknown family member Unknown grandparent Unknown Relationship Condition Age at Onset Recorded Date/T kali father History of heart valve replacement Unknow n Malignant neoplasm of prostate Unknown Diabetes mellitus Unknown Type 2 diabetes mellitus Unknown mother High blood cholesterol Unknown Dementia Unknown Hypertension Unknown aunt Malignant neoplasm Unknown aunt Unknown grandparent Unknown Relationship Condition Age at Onset Recorded Date/T kali father History of heart valve replacement Unknow n Malignant neoplasm of prostate Unknown Diabetes mellitus Unknown mother High blood cholesterol Unknown Dementia Unknown Hypertension Unknown aunt Malignant neoplasm Unknown aunt Unknown grandparent Unknown Advance Directives Advance Directive Response Recorded Date/ Time Advance Directives No August 22, 2017 11:42am Advance Directive Response Recorded Date/ Time Advance Directives No August 22, 2017 10:42am Reason for Referral Reason evaluate and treat f or leg strengthening Diagnosis 1 Sacroiliitis (M46.1) Referral Organization [facility] Referring Provider First Name Flor Referring Provider Last Name Jan Referring Provider Specialty Nurse Pract itioner Referred Organization [facility] [address] Referred Address [address] [facility],[place], [place],[address] Referred Provider Specialty Physical The rapist Referral Priority Routine Reason * FU 03/05 Patient with recurrent strokelike symptoms, remote history of lacunar infarct, on maximal medical therapy except statin intolerant, history of migraines; patient is seeking additional evaluation and opinion Diagnosis 1 Stroke-like symptoms (R29.90) Referral Organization [facility] Referring Provider First Name Isidro Referring Provider Last Name Lisa Referring Provider Specialty Family Prac justin Referred Organization [facility] Referred Address [address],[place], [place],[address] Referred Provider Specialty Neurology Referral Priority Routine General Notes Alexia Mcdonough 03/2023 09:12:31 AM > referral received spoke with Rukhsana at Dr. Farr office, fax#[phone], they will call pt to schedule. Referral faxed Alexia Mcdonough 02/26/2023 11:46:26 AM >fax is stating fatal error, called office spoke with Lynnette, she stated that was correct # and to keep trying. Clinical Notes [phone] - clinic fax [phone] - use only if referral fax keeps saying fatal error Reason Aqua Therapy and Tai d Therapy-Please use Both Modalities in order to ensure that patients gets in atleast 2 visits per week Diagnosis 1 Sacroiliitis (M46.1) Diagnosis 2 Lumbar back pain wit h radiculopathy affecting lower extremity (M54.16) Referral Organization [facility] Referring Provider First Name Flor Referring Provider Last Name Jan Referring Provider Specialty Nurse Sabino avery Referred Organization [facility] Referred Address [address] [place], [place],[address] Referred Provider Specialty Physical The rapist Referral Priority Routine General Notes Kay Sethi i 11/13/2022 09:25:48 AM > PT notes in chart Reason 11/07/22 @ 10:00 C hronic leg pain due to lumbar spinal stenosis and neuroforaminal stenosis, failure to improve with conservative treatment and steroid injections. Please evaluate regarding surgical options Diagnosis 1 Spinal stenosis of l umbar region with neurogenic claudication (M48.062) Referral Organization [facility] Referring Provider First Name Isidro Referring Provider Last Name Lisa Referring Provider Specialty Family Elaine anderson Referred Organization [facility] Referred Provider Flor Montoya Referred Address [address],[address] Referred Provider Specialty Nurse Kymberly cheung Referral Priority Routine Referral Appointment Date 2022-11-07 General Notes Alexia Mcdonough 03/2023 09:38:53 AM >referral received, sending back to provider. Dr. Gonzalez, neuro will not see/schedule without recent MRI (within 1 year). I am not seeing MRI in chart. Please advise. Alexia Mcdonough 10/29/2022 12:59:02 PM >spoke with provider, would like pt to see FINANCE VICE PRESIDENT. referral sent p2p Alexia Mcdonough 11/13/2022 11:55:08 AM >consult notes are locked and ready for review. Summary Purpose Additional Source Comments REASON FOR VISIT (unrecogniz ed section and content) Reason Onset Date Comments Refill Request 02/11/2022 Reason Comments Chronic Migraine Migraine Reason Comments Abdominal Pain Headache Body aches Reason Comments Botulinum Toxin Injection Reason Comments Med Refill Reason Comments Tremors Migraine Stroke Care Teams (unrecognized sec tion and content) Team Status: Active Member Role Status Dates Isidro Mast , DO Primary Care Provider Active Team Status: Inactive Member Role Status Dates Isidro Mast , DO Primary Care Provider Active KHARI Nuno Attending Provider Active Team Status: Inactive Member Role Status Dates Isidro Mast , DO Primary Care Provider Active Pravin Beebe MD Attending Provider Active Team Status: Inactive Member Role Status Dates Isidro Mast , DO Primary Care Provider Active Guille Johnson , DO Emergency Provider Active Team Status: Inactive Member Role Status Dates Isidro Mast , DO Primary Care Provider Active Leonardo Braden MD Emergency Provider Active Team Status: Inactive Member Role Status Dates Isidro Mast , DO Primary Care Provider Active Ernie Oliver Jr, MD Emergency Provider Active Anjali Rosario MD Admit Provider Active Jean Mays , DO Other Provider Active Jameson Posada , DO Attending Provider Active Team Status: Active Member Role Status Dates Isidro Mast , DO Primary Care Provider Active KHARI Nuno Attending Provider Active Team Status: Active Member Role Status Dates Isidro Mast , DO Primary Care Provider Active Ernie Oliver Jr, MD Emergency Provider Active Anjali Rosario MD Admit Provider, Attending Provide r Active Team Status: Inactive Member Role Status Dates Isidro Mast , DO Primary Care Provider, Attending Provid er Active Team Status: Inactive Member Role Status Dates Isidro Mast , DO Primary Care Provider Active Ernie Oliver Jr, MD Emergency Provider Active Strainer Mill Operator Relationship Specialty Start Date End Date Mast, Isidro E, DO PCP - General Family Medicine 12/28/18 Team Status: Inactive Member Role Status Dates Isidro Mast , DO Primary Care Provider Active Shmuel Faith , DO Emergency Provider Active Munir Ennis MD Admit Provider Active Floresita Sommers Other Provider Active Steven Figueroa , DO Other Provider Active Michael Ashraf MD Other Provider Active Virgilio Trevizo , DO Other Provider Active Shayna French , ANP-BC Other Provider Active Jean Mays , DO Other Provider Active Conchis M Gillmor , MEDICAL PRACTICE ASSISTANT Other Provider Active Madeleine Finn , FINANCE VICE PRESIDENT-C Other Provider Active Tanna Klein , MEDICAL PRACTICE ASSISTANT-BOARD WINDER-C Other Provider Active Ibis Andersen MD Attending Provider Active Team Status: Inactive Member Role Status Dates Isidro Mast , DO Primary Care Provider Active Isidro Porras , DO Emergency Provider Active Karen Mar MD Admit Provider, Attending Provider Active Jean Mays , DO Other Provider Active Strainer Mill Operator Relationship Specialty Start Date End Date Mast, Isidro E, DO PCP - General Family Medicine 12/28/18 Team Status: Inactive Member Role Status Dates Isidro Mast , DO Primary Care Provider Active Erickson Odonnell , DO Emergency Provider Active Jairo Hughes MD Admit Provider, Attending Provider Ac tive Jean Mays , DO Other Provider Active Team Status: Inactive Member Role Status Dates Isidro Mast , DO Primary Care Provider Active Shmuel Faith , DO Emergency Provider Active Munir Ennis MD Admit Provider Active Floresita Sommers Other Provider Active Steven Figueroa , DO Other Provider Active Michael Ashraf MD Other Provider Active Dillon Trevizo , DO Other Provider Active Shayna French , ANP-BC Other Provider Active Jean Mays , DO Other Provider Active Conchis Starks , MEDICAL PRACTICE ASSISTANT Other Provider Active Madeleine Finn , FINANCE VICE PRESIDENT-C Other Provider Active Tanna Klein , MEDICAL PRACTICE ASSISTANT-BOARD WINDER-C Other Provider Active Ibis Andersen MD Attending Provider Active Team Status: Inactive Member Role Status Dates Isidro Mast , DO Primary Care Provider Active Grazyna Coronado MD Attending Provider Active Team Status: Inactive Member Role Status Dates Isidro Mast , DO Primary Care Provider Active Star t: July 28, 2023 End: July 28, 2023 Grazyna Coronado MD Attending Provider Active Start : July 28, 2023 End: July 28, 2023 Team Status: Inactive Member Role Status Dates Isidro Mast , DO Primary Care Provider Active Star t: August 20, 2023 End: August 20, 2023 Pravin Beebe MD Attending Provider Active Sta rt: August 20, 2023 End: August 20, 2023 Team Status: Inactive Member Role Status Dates Isidro Mast , DO Primary Care Provider Active Star t: September 03, 2023 End: September 03, 2023 Pravin Beebe MD Attending Provider Active Sta rt: September 03, 2023 End: September 03, 2023 Team Status: Inactive Member Role Status Dates Isidro Mast , DO Primary Care Provider Active Star t: October 08, 2023 End: October 08, 2023 Pravin Beebe MD Attending Provider Active Sta rt: October 08, 2023 End: October 08, 2023 Team Status: Inactive Member Role Status Dates KHARI Nuno Attending Provider Active Start: August 19, 2023 End: August 19, 2023 Team Status: Inactive Member Role Status Dates Isidrowillow Gonzalez , DO Attending Provider Active Start: August 26, 2023 End: August 26, 2023 Team Status: Inactive Member Role Status Dates Pravin Beebe MD Attending Provider Active Sta rt: September 12, 2023 End: September 12, 2023 Team Status: Inactive Member Role Status Dates Pravin Beebe MD Attending Provider Active Sta rt: October 15, 2023 End: October 15, 2023 Team Status: Inactive Member Role Status Dates Isidro Mast , DO Primary Care Provider Active Star t: November 05, 2023 End: November 05, 2023 Pravin Beebe MD Attending Provider Active Sta rt: November 05, 2023 End: November 05, 2023 Team Status: Inactive Member Role Status Dates Isidro Mast , DO Primary Care Provider Active Star t: November 10, 2023 End: November 10, 2023 KHARI Nuno Attending Provider Active Start: November 10, 2023 End: November 10, 2023 Team Status: Inactive Member Role Status Dates Isidro Mast , DO Primary Care Provider Active Star t: November 13, 2023 End: November 13, 2023 Pravin eBebe MD Attending Provider Active Sta rt: November 13, 2023 End: November 13, 2023 Team Status: Active Member Role Status Dates Isidro Mast , DO Primary Care Provider Active Star t: November 05, 2023 Pravin Beebe MD Attending Provider, Other Provider Active Start: November 05, 2023 Team Status: Inactive Member Role Status Dates Isidro Mast , DO Primary Care Provider Active Star t: November 19, 2023 End: November 19, 2023 KHARI Nuno Attending Provider Active Start: November 19, 2023 End: November 19, 2023 Team Status: Inactive Member Role Status Dates Isidro Mast , DO Primary Care Provider Active Star t: November 26, 2023 End: November 26, 2023 Pravin Beebe MD Attending Provider Active Sta rt: November 26, 2023 End: November 26, 2023 Team Status: Active Member Role Status Dates Isidro Mast , DO Primary Care Provider Active Star t: November 26, 2023 Pravin Beebe MD Attending Provider, Other Provider Active Start: November 26, 2023 Team Status: Inactive Member Role Status Dates Isidro Mast , DO Primary Care Provide r, Attending Provider Active Start: November 27, 2023 End: November 27, 2023 Team Status: Inactive Member Role Status Dates Isidro Mast , DO Primary Care Provider Active Star t: December 10, 2023 End: December 10, 2023 Lorraine Simon NP Attending Provider Active Start: December 10, 2023 End: December 10, 2023 Team Status: Inactive Member Role Status Dates Isidro Mast , DO Primary Care Provider Active Star t: December 24, 2023 End: December 25, 2023 Lynnette Tavera MD Emergency Provider Active Start: December 24, 2023 End: December 25, 2023 Team Status: Inactive Member Role Status Dates Isidro Mast , DO Primary Care Provider Active Star t: January 06, 2024 End: January 06, 2024 Harshil Ward MD Attending Provider Active Star t: January 06, 2024 End: January 06, 2024 Team Status: Inactive Member Role Status Dates Isidro Mast , DO Primary Care Provider Active Star t: January 26, 2024 End: January 26, 2024 Pravin Beebe MD Attending Provider Active Sta rt: January 26, 2024 End: January 26, 2024 Team Status: Inactive Member Role Status Dates Isidro Mast , DO Primary Care Provider Active Star t: February 04, 2024 End: February 04, 2024 Pravin Beebe MD Attending Provider Active Sta rt: February 04, 2024 End: February 04, 2024 Team Status: Active Member Role Status Dates Isidro Mast , DO Primary Care Provider Active Star t: February 04, 2024 Pravin Beebe MD Attending Provider, Other Provider Active Start: February 04, 2024 Team Status: Inactive Member Role Status Dates Isidro Mast , DO Primary Care Provider Active Star t: February 29, 2024 End: February 29, 2024 Leonardo Braden MD Emergency Provider Active Star t: February 29, 2024 End: February 29, 2024 Team Status: Active Member Role Status Dates Isidro Mast , DO Primary Care Provider Active Star t: March 01, 2024 JUAN RAMON Hernandez Attending Provider Active Start: March 01, 2024 Team Status: Inactive Member Role Status Dates Isidro Mast , DO Primary Care Provide r, Attending Provider Active Start: March 05, 2024 End: March 05, 2024 Team Status: Inactive Member Role Status Dates Isidro Mast , DO Primary Care Provide r, Attending Provider Active Start: April 05, 2024 End: April 05, 2024 Team Status: Inactive Member Role Status Dates Isidro Mast , DO Primary Care Provider Active Star t: May 20, 2024 End: May 20, 2024 Guille Johnson DO Emergency Provider Active St art: May 20, 2024 End: May 20, 2024 Team Status: Inactive Member Role Status Dates Adam Pierce DO Emergency Provider Active Start: June 02, 2024 End: June 02, 2024 Isidro Mast , DO Primary Care Provider Active Star t: June 02, 2024 End: June 02, 2024 Team Status: Active Member Role Status Dates Isidro Mast , DO Primary Care Provider Active Star t: May 20, 2024 Nolan Rangel DO Attending Provider Active Sta rt: May 20, 2024 Team Status: Active Member Role Status Dates Isidro Mast , DO Primary Care Provider Active Star t: June 03, 2024 Alexia Hooks Attending Provider Active St art: June 03, 2024 Team Status: Active Member Role Status Dates Meka Acevedo APRN Emergency Provider Active Start: June 06, 2024 Isidro Mast , DO Primary Care Provider Active Star t: June 06, 2024 Andres Holden DO Admit Provider, Atte nding Provider Active Start: June 06, 2024 Team Status: Inactive Member Role Status Dates Meka Acevedo APRN Emergency Provider Active Start: June 06, 2024 End: June 08, 2024 Isidro Mast , DO Primary Care Provider Active Star t: June 06, 2024 End: June 08, 2024 Andres Holden DO Admit Provider Active Start: June 06, 2024 End: June 08, 2024 Iglesia Mccray MD Attending Provider Active St art: June 06, 2024 End: June 08, 2024 Team Status: Active Member Role Status Dates Isidro Gonzalez DO Primary Care Provider Active Star t: June 09, 2024 Alexia Hooks Attending Provider Active St art: June 09, 2024 Team Status: Inactive Member Role Status Dates Isidro Gonzalez DO Primary Care Provide r, Attending Provider Active Start: June 14, 2024 End: June 14, 2024 Strainer Mill Operator Relationship Specialty Start Date End Date Isidro Gonzalez MD [address] [place] [address] PCP - General 01/22/24 Strainer Mill Operator Relationship Specialty Start Date End Date Isidro Gonzalez MD [address] [place] [address] PCP - General 01/22/24 Strainer Mill Operator Relationship Specialty Start Date End Date Isidro Gonzalez MD [address] [place] [address] PCP - General 01/22/24 Strainer Mill Operator Relationship Specialty Start Date End Date Isidro Gonzalez MD [address] [place] [address] PCP - General 01/22/24 Strainer Mill Operator Relationship Specialty Start Date End Date Isidro Gonzalez MD [address] [place] [address] PCP - General 01/22/24 Team Status: Inactive Member Role Status Dates Isidro Gonzalez DO Primary Care Provider Active Star t: August 03, 2024 End: August 03, 2024 EBENEZER Cochran Attending Provide r, Referring Provider Active Start: August 03, 2024 End: August 03, 2024 Team Status: Inactive Member Role Status Dates Isidro Gonzalez DO Primary Care Provide r, Attending Provider Active Start: August 09, 2024 End: August 09, 2024 Strainer Mill Operator Relationship Specialty Start Date End Date Isidro Gonzalez MD [address] [place] [address] PCP - General 01/22/24 Strainer Mill Operator Relationship Specialty Start Date End Date Isidro Gonzalez MD [address] [place] [address] PCP - General 01/22/24 Strainer Mill Operator Relationship Specialty Start Date End Date Isidro Gonzalez MD [address] [place] [address] PCP - General 01/22/24 Strainer Mill Operator Relationship Specialty Start Date End Date Isidro Gonzalez MD [address] [place] [address] PCP - General 01/22/24 Strainer Mill Operator Relationship Specialty Start Date End Date Isidro Gonzalez MD [address] [facility] [place] [address] PCP - General 01/22/24 Team Status: Inactive Member Role Status Dates Isidro Gonzalez DO Primary Care Provider Active Star t: September 07, 2024 End: September 07, 2024 Pravin Beebe MD Attending Provider Active Sta rt: September 07, 2024 End: September 07, 2024 Team Status: Inactive Member Role Status Dates Isidro Mast , DO Primary Care Provide r, Attending Provider Active Start: September 13, 2024 End: September 13, 2024 Team Status: Inactive Member Role Status Dates Isidro Mast , DO Primary Care Provide r, Attending Provider Active Start: September 14, 2024 End: September 14, 2024 Team Status: Active Member Role Status Dates Isidro Mast , DO Primary Care Provide r, Attending Provider Active Start: September 17, 2024 Team Status: Inactive Member Role Status Dates Isidro Mast , DO Primary Care Provide r, Attending Provider Active Start: September 27, 2024 End: September 27, 2024 Team Status: Inactive Member Role Status Dates Isidro Mast , DO Primary Care Provider Active Star t: September 29, 2024 End: September 29, 2024 Pravin Beebe MD Attending Provider Active Sta rt: September 29, 2024 End: September 29, 2024 Strainer Mill Operator Relationship Specialty Start Date End Date Isidro Gonzalez MD [address] [place] [id number] PCP - General 01/22/24 Team Status: Active Member Role Status Dates Isidro Mast , DO Primary Care Provider Active Star t: September 29, 2024 Pravin Beebe MD Attending Provider, Other Provider Active Start: September 29, 2024 Team Status: Inactive Member Role Status Dates Isidro Mast , DO Primary Care Provider Active Star t: October 06, 2024 End: October 06, 2024 Pravin Beebe MD Attending Provider Active Sta rt: October 06, 2024 End: October 06, 2024 Team Status: Inactive Member Role Status Dates Isidro Mast , DO Primary Care Provider Active Star t: October 13, 2024 End: October 13, 2024 Pravin Beebe MD Attending Provider Active Sta rt: October 13, 2024 End: October 13, 2024 Team Status: Active Member Role Status Dates Isidro Mast , DO Primary Care Provider Active Star t: October 13, 2024 Pravin Beebe MD Attending Provider, Other Provider Active Start: October 13, 2024 Team Status: Inactive Member Role Status Dates Isidro Mast , DO Primary Care Provider Active Star t: October 18, 2024 End: October 18, 2024 Vadim Little APRN Emergency Provider Active Start: October 18, 2024 End: October 18, 2024 Team Status: Inactive Member Role Status Dates Isidro Mast , DO Primary Care Provider Active Star t: October 18, 2024 End: October 18, 2024 Deondre Jarrett MD Attending Provider Active St art: October 18, 2024 End: October 18, 2024 Team Status: Active Member Role Status Dates Isidro Mast , DO Primary Care Provider Active Star t: October 25, 2024 Enedina Osman RMYuly Attending Provider Active Start: October 25, 2024 Team Status: Active Member Role Status Dates Isidro Mast , DO Primary Care Provider Active Star t: October 26, 2024 Enedinayuly Osman RMYuly Attending Provider Active Start: October 26, 2024 Team Status: Inactive Member Role Status Dates Isidro Mast , DO Primary Care Provider Active Star t: October 27, 2024 End: October 27, 2024 Lorraine Simon NP Attending Provider Active Start: October 27, 2024 End: October 27, 2024 Strainer Mill Operator Relationship Specialty Start Date End Date Isidro Gonzalez MD [address] [facility] [place] [address] PCP - General 01/22/24 Steven Figueroa DO [address] [place] [address] Referring Physician Neurology 10/28/24 Team Status: Inactive Member Role Status Dates Isidro Mast , DO Primary Care Provide r, Attending Provider Active Start: November 09, 2024 End: November 09, 2024 Team Status: Inactive Member Role Status Dates Isidro Mast , DO Primary Care Provider Active Star t: November 14, 2024 End: November 14, 2024 Guille Johnson DO Emergency Provider Active St art: November 14, 2024 End: November 14, 2024 Goals (unrecognized section and content) Goals may be documented in a n alternate section Source Comments (unrecognize d section and content) In the event this informatio n is protected by the Federal Confidentiality of Alcohol and Drug Abuse Patient Records regulations: The Federal rules restrict any use of the information to criminally investigate or prosecute any alcohol or drug abuse patient.[facility] the event this information is protected by the Federal Confidentiality of Alcohol and Drug Abuse Patient Records regulations: The Federal rules restrict any use of the information to criminally investigate or prosecute any alcohol or drug abuse patient.[facility] INFORMATION SOURCE (unrecogn ized section and content) DATE CREATED AUTHOR 03/14/2023 [facility] DATE CREATED AUTHOR AUTHOR'S ORGANIZ ATION 04/19/2023 [facility] DATE CREATED AUTHOR AUTHOR'S ORGANIZ ATION 08/06/2024 [facility] DATE CREATED AUTHOR AUTHOR'S ORGANIZ ATION 2024 [facility] DATE CREATED AUTHOR AUTHOR'S ORGANIZ ATION 10/30/2024 [facility] FOR RECORDS PERTAINING TO PATIENTS WHO ARE OR HAVE BEEN ENROLLED IN A CHEMICAL DEPENDENCY/SUBSTANCEABUSE PROGRAM, SOME INFORMATION MAY BE OMITTED. This clinical summary was aggregated from multiple sources. Caution should be exercised in using it in the provision of clinical care. This summary normalizes information from multiple sources, and as a consequence, information in this document may materially change the coding, format and clinical context of patient data. In addition, data may be omitted in some cases. CLINICAL DECISIONS SHOULD BE BASED ON THE PRIMARY CLINICAL RECORDS. [facility]. provides no warranty or guarantee of the accuracy or completeness of information in this document.
--- NOTE | 2024-11-14 12:10 | ED_ITS ---
HPI HPI - General Adult General Chief complaint: Nausea/Vomiting/Diarrhea Stated complaint: NAUSEA/VOMITING Time Seen by Provider: 11/14/24 11:28 Source: patient Mode of arrival: ambulance History of Present Illness HPI narrative: cc = dry heaves Patient brought in by thais for evaluation after her drove her from [facility] emergency department to the local [facility]. The patient just started sertraline 2 days ago for depression and anxiety. She is also taking alprazolam, which she started 4 days ago. Last night, around the time that she was scheduled to take the alprazolam, she was experiencing panic and anxiety type symptoms. After taking the alprazolam the symptoms settle down. This morning she was worried about taking her sertraline, which she did this morning on an empty stomach, and within about 30 to 45 minutes of taking that, she started to experience nausea and dry heaving. She initially believed that she might be having an allergic reaction to the medication. Her thought that she might be having serotonin syndrome. They initially went to [facility] emergency department because it is closer to their house but there was a substantial wait to be seen so they left and drove to the [facility] to try and get more acute care. On arrival she is hyperventilating, anxious and borderline hysterical Related Data Home Medications ?Medication ?Instructions ?Recorded ?Confirmed atogepant 60 mg tablet (Qulipta) 60 mg PO DAILY 01/12/24 11/14/24 clopidogrel 75 mg tablet 75 mg PO DAILY 01/12/24 11/14/24 levothyroxine 75 mcg tablet 75 mcg PO DAILY 01/12/24 11/14/24 lisinopril 10 mg tablet 10 mg PO DAILY 01/12/24 11/14/24 magnesium 250 mg tablet 500 mg PO DAILY 01/12/24 11/14/24 niacin 1,000 mg tablet,extended 1,000 mg PO BID 01/12/24 11/14/24 release pregabalin 100 mg capsule 150 mg PO QPM 01/12/24 11/14/24 semaglutide 1 mg/dose (4 mg/3 mL) 2 mg subcut .weekly 01/12/24 11/14/24 subcutaneous pen injector (Ozempic) lasmiditan 100 mg tablet (Reyvow) 100 mg PO QDAY PRN migraine 05/20/24 11/14/24 headache alprazolam 0.5 mg tablet 0.5 mg PO TID PRN anxiety 11/14/24 11/14/24 pregabalin 100 mg capsule 100 mg PO QAM 11/14/24 11/14/24 sertraline 50 mg tablet 50 mg PO DAILY 11/14/24 11/14/24 ubrogepant 100 mg tablet (Ubrelvy) 100 mg PO DAILY PRN migraine 11/14/24 5 headache Allergies Allergy/AdvReac Type Severity Reaction Status Date / Time [id number] Reductase AdvReac Muscle Pain Verified 05/20/24 14:09 Inhibitor Opioid HPI Opioid Management Most Recent Opioid Data: Last Pain Scale 7 05/20/24 15:29 05/20/24 [facility] Medical History (Updated 11/14/24 @ 12:17 by Thierry Blood) Kidney stone ?N20.0 - Calculus of kidney (ICD-10) Anxiety ?F41.9 - Anxiety disorder, unspecified (ICD-10) Diabetes ?E11.9 - Type 2 diabetes mellitus without complications (ICD-10) Migraine ?G43.909 - Migraine, unspecified, not intractable, without status migrainosus (ICD-10) Stroke ?I63.9 - Cerebral infarction, unspecified (ICD-10) TIA (transient ischemic attack) ?G45.9 - Transient cerebral ischemic attack, unspecified (ICD-10) Alopecia ?L65.9 - Nonscarring hair loss, unspecified (ICD-10) Social History Little interest or pleasure in doing things: not at all Feeling down, depressed, or hopeless: not at all Exam Narrative Exam Narrative: Nurses notes and vital signs reviewed and patient is not hypoxic. afebrile General: Anxious and borderline hysterical on arrival. Skin: Warm, dry, no pallor noted. No rash. Head: Normocephalic, atraumatic. Neck: Supple, non-tender. No meningismus Eye: Pupils are equal, round and EOMI. No scleral icterus. Ears, Nose, Mouth, and Throat: Oral mucosa is moist Cardiovascular: Regular Rate and Rhythm without murmur, gallop or rub. Respiratory: Tachypneic with hyperventilation. Lungs are clear to auscultation, no wheezing, rales or rhonchi Back: No CVA tenderness Musculoskeletal: normal ROM, no calf or popliteal tenderness, no lower extremity edema/swelling GI: Abdomen is soft, non-distended. Normal bowel sounds. No masses appreciated. No tenderness to palpation. No rebound, guarding, or rigidity noted. Neurological: A&O x4. No cranial nerve dysfunction observed. No truncal ataxia. Moves all extremities. Sensation intact. Psychiatric: Anxious and emotional. Constitutional Vital Signs, click to edit/add: Last Vital Signs Temp 98.1 F 11/14/24 11:10 Pulse 72 11/14/24 11:10 Resp 22 H 11/14/24 11:10 BP 165/86 H 11/14/24 11:10 Pulse Ox 99 11/14/24 11:10 O2 Del Method Room Air 11/14/24 11:10 Course Vital Signs Vital signs: Vital Signs Temperature 98.1 F 11/14/24 11:10 Pulse Rate 72 11/14/24 11:10 Respiratory Rate 22 H 11/14/24 11:10 Blood Pressure 165/86 H 11/14/24 11:10 Pulse Oximetry 99 11/14/24 11:10 Oxygen Delivery Method Room Air 11/14/24 11:10 Temperature 98.1 F 11/14/24 11:10 Pulse Rate 72 11/14/24 11:10 Respiratory Rate 22 H 11/14/24 11:10 Blood Pressure 165/86 H 11/14/24 11:10 Pulse Oximetry 99 11/14/24 11:10 Oxygen Delivery Method Room Air 11/14/24 11:10 Medical Decision Making MDM Narrative Medical decision making narrative: I initially saw the patient as she arrived with EMS and was taken to room 7. Patient was placed on monitoring analyst and EKG obtained by triage nurse. Blood drawn and sent for evaluation. I was tied up with a critical patient and by the time I came into the room, the patient had substantially calmed and was no longer hyperventilating. Her symptoms have also resolved. I gave her reassurance regarding her symptoms. I do not believe this is an acute serotonin syndrome reaction. I offered her IV Reglan and she declined. She does not want to take Zofran due to potential serotonin interaction. Where things we discussed was the fact that she takes her medications on empty stomach. I let her know that it is my recommendation that the sertraline should be taken with some food -the said that she already has a sensitive stomach at times. The patient would like to be discharged home and plans to get some Pepto-Bismol for any continued GI upset. I do not see a benefit to getting any blood testing, CAT scans or x-rays at this time as her symptoms have resolved and her exam is normal. I recommend that she call and follow-up with her prescriber regarding her psychiatric medications. She is welcome to return to the emergency department if she worsens. ECG Data Attestation: I personally reviewed and interpreted this ECG as follows: Interpretation: EKG interpretation: Emergency Department physician interpretation. Normal sinus rhythm at 69bpm. Right the patient is to followup with primary care physician in next 2-3 days or to return to the emergency department should any of the signs or symptoms worsen or new symptoms develop. The patient agrees with the following Diagnosis and Treatment plan and the patient will be discharged home. Block noted. No ST segment elevation or depression. Discharge Plan Discharge Chief Complaint: Nausea/Vomiting/Diarrhea Clinical Impression: Panic anxiety syndrome Patient Disposition: Home, Self-Care Time of Disposition Decision: 12:16 Prescriptions / Home Meds: No Action clopidogrel 75 mg tablet 75 mg PO DAILY pregabalin 100 mg capsule 150 mg PO QPM Rx Instructions: 150 mg at PM levothyroxine 75 mcg tablet 75 mcg PO DAILY Rx Instructions: at 06:30 lisinopril 10 mg tablet 10 mg PO DAILY Qulipta 60 mg tablet 60 mg PO DAILY Ozempic 1 mg/dose (4 mg/3 mL) pen injector 2 mg SUBCUT .weekly niacin 1,000 mg tablet extended release 1,000 mg PO BID magnesium 250 mg tablet 500 mg PO DAILY Reyvow 100 mg tablet 100 mg PO QDAY PRN (Reason: migraine headache) Rx Instructions: no more than 8 in 1 month alprazolam 0.5 mg tablet 0.5 mg PO TID PRN (Reason: anxiety) pregabalin 100 mg capsule 100 mg PO QAM sertraline 50 mg tablet 50 mg PO DAILY Ubrelvy 100 mg tablet 100 mg PO DAILY PRN (Reason: migraine headache) Print Language: Persian Instructions: Panic Attack (ED) Referrals: Physician,Non-Staff, MD [Primary Care Provider] - 1 week
--- NOTE | 2024-11-14 12:45 | ECG_ITS ---
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
== END 2024-11-14 12:34 | disposition home or self-care (01) ==
PROVIDERS: Emergency Provider Emergency Medicine
DX: F41.0 Panic disorder [episodic paroxysmal anxiety] (principal); R11.2 Nausea with vomiting, unspecified; R06.4 Hyperventilation
CPT/HCPCS: 93005; 99284